=== PATIENT | male | born 1950 | race Caucasian/White ===

== ENCOUNTER 2018-08-05 12:40 | Emergency (ER) | payer MEDICARE, SELFPAY ==
--- NOTE | 2018-08-05 12:52 | ED_ITS ---
HPI - Neuro Symptoms/Deficit General Chief Complaint: Neuro Symptoms/Deficit Stated Complaint: thinks had a stroke. words slurred/legs weak Time Seen by Provider: 08/05/18 12:52 Source: patient Mode of arrival: ambulatory Limitations: no limitations History of Present Illness HPI Narrative: Patient is a 68-year-old male here for evaluation of bilateral lower extremity weakness that occurred last evening. He states that things have improved since that time. He also states that this morning he felt like he was having problems speaking and slurring his words. He states that he felt like he was doing this. He states he was talking to his sister at the time. His sister is not here however the patient states that his sister did not appreciate of the symptoms that he thought he was having. He reports that the slurring of his words has now completely resolved. Denies any headache. States that he occasionally sees black floaters in his eyes however no other vision changes. No chest pain. No shortness of breath. He states that he does have a history of hypertension. He is not on any hypertension medicines. He states that his blood pressure normally runs in the 190s systolic however occasionally is above 200. Related Data Previous Rx's Medication Instructions Recorded lisinopril 20 mg PO DAILY #60 tab 08/05/18 Allergies Allergy/AdvReac Type Severity Reaction Status Date / Time No Known Drug Allergies Allergy Verified 08/05/18 12:56 Review of Systems Constitutional Denies fatigue, Denies fever(s), Denies headache(s), Denies lethargy and Denies malaise Eyes Denies blurry vision and Denies diplopia Comments: Occasional black floaters ENT Ears, Nose, Mouth, and Throat: Denies vertigo, Denies dizziness, Denies headache (s) and Denies disequilibrium Cardiovascular Denies chest pain, Denies syncope and Denies dyspnea Respiratory Denies cough and Denies dyspnea Gastrointestinal Gastrointestinal: Denies abdominal pain, Denies nausea and Denies vomiting Musculoskeletal Denies myalgias, Denies arthralgias, Denies numbness and Denies tingling Comments: Weakness in bilateral lower extremities that is now resolved Integumentary/Breasts Denies lesions and Denies rash Neurologic Denies confusion, Denies vertigo, Denies dizziness, Denies syncope, Denies headache(s), Reports focal weakness (Bilateral lower extremities), Denies memory loss, Denies numbness, Denies convulsions, Denies tingling, Denies paresthesias and Denies disequilibrium Psychiatric Denies confusion and Denies memory loss Endocrine Denies fatigue Hematologic/Lymphatic Denies easy bleeding and Denies easy bruising [facility] Medical History Hypertension (Acute) Surgical History No pertinent past surgical history (Acute) Social History Smoking Status: Current every day smoker Exam Initial Vital Signs Initial Vital Signs: Vital Signs Temperature 98.4 F 08/05/18 12:53 Pulse Rate 72 08/05/18 12:53 Respiratory Rate 18 08/05/18 12:53 Blood Pressure 243/131 H 08/05/18 12:53 Pulse Oximetry 95 08/05/18 12:53 Const General: cooperative, healthy appearing, comfortable, well developed, well groomed and No acute distress Orientation: alert, awake and oriented x3 HENMT Head: normal to inspection and normocephalic Resp Effort & Inspection: normal respiratory effort Auscultation: clear to auscultation bilaterally Cardio Rate: regular rate Rhythm: regular rhythm Pulses: radial pulses present GI Inspection: non-distended Palpation: soft, No firm and No tender Skin General: no rashes or lesions noted Lesions: no lesions Rashes: no rashes Neuro General: alert, awake and oriented x3 Cranial Nerves: CN's II-XI intact bilaterally Cognition: normal cognition Speech: speech normal Motor: muscle tone normal throughout Sensory Exam: no sensory deficits noted Extrem General: normal to inspection and capillary refill normal Psych Appearance: grossly normal and well kempt Scores ABCD2 Age >= 60 years: yes Initial BP. Either SBP >= 140 or DBP >= 90.: yes Clinical features of the TIA: speech disturbance without weakness Duration of symptoms: < 10 minutes History of diabetes: no ABCD2 Score: 3 Course Orders Ordered: ED Orders 08/05/18 12:56 EKG-12 Lead Stat 08/05/18 13:08 CT head/brain wo con Stat 08/05/18 13:30 Complete Blood Count AUTO DIFF Stat Comprehensive Metabolic Panel Stat Partial Thromboplastin Time Stat Prothrombin Time INR Stat Troponin I Stat 08/05/18 15:11 Consult to Physical Therapy Evaluate & Treat Discontinued Medications Lisinopril (Zestril) 20 mg PO NOW ONE Stop: 08/05/18 14:18 Last Admin: 08/05/18 14:49 Dose: 20 mg Vital Signs - 8 hr 08/05/18 12:53 08/05/18 14:01 08/05/18 14:49 Temperature 98.4 F Pulse Rate 72 62 60 Respiratory Rate 18 18 Blood Pressure 243/131 H 192/90 H Blood Pressure [Left Arm] 171/100 H Pulse Oximetry 95 98 08/05/18 15:22 Temperature Pulse Rate 67 Respiratory Rate 16 Blood Pressure Blood Pressure [Left Arm] 184/110 H Pulse Oximetry 98 MDM - Neuro Symptoms/Deficit Lab Data Attestation: I reviewed the patient's lab results. Result diagrams: 08/05/18 13:30 08/05/18 13:30 Lab Results 08/05/18 08/05/18 08/05/18 Range/Units 13:30 13:30 13:30 WBC 6.7 (4.5-11.0) X10^3/uL RBC 5.21 (4.5-5.9) X10^6/uL Hgb 17.3 (13.5-17.5) g/dL Hct 49.8 (41-53) % MCV 95.5 (80-100) fL MCH 33.2 (26-34) PG MCHC 34.8 (30-36) % RDW 12.9 (11.6-14.8) % Plt Count 257 (150-400) X10^3/uL Neut % (Auto) 64.8 (50-75) % Lymph % (Auto) 22.4 L (25-40) % Mower % (Auto) 8.6 (3-14) % Eos % (Auto) 3.4 (2-4) % Baso % (Auto) 0.8 (0-2) % Neut # (Auto) 4400 (9537-6118) /uL PT 11.1 (10.1-12.7) SECONDS INR 1.0 (0.9-1.3) APTT 30 (26.4-36.2) SECONDS Sodium 139 (137-145) mmol/L Potassium 3.9 (3.4-5.1) mmol/L Chloride 102 (98-107) mmol/L Carbon Dioxide 27 (22-32) mmol/L BUN 23 H (9-20) mg/dL Creatinine 1.00 (0.66-1.25) mg/dL Estimated GFR > 60.0 (>60) mL/min BUN/Creatinine Ratio 23.0 H (6-22) Glucose 87 (80-110) mg/dL Calcium 9.2 (8.4-10.2) mg/dL Total Bilirubin 0.7 (0.2-1.3) mg/dL AST 30 (17-59) IU/L ALT 34 (21-72) IU/L Alkaline Phosphatase 86 (38-126) U/L Troponin I 0.014 (0.01-0.034) ng/mL Total Protein 7.3 (6.3-8.2) g/dL Albumin 4.3 (3.5-5.0) g/dL Globulin 3.0 (1.7-4.1) g/dL Albumin/Globulin Ratio 1.4 (1.0-2.8) Imaging Data CT scan - head: Radiologist's impression: [place] [address] CT Scan Report Signed Patient: Jaime Estrada#: [id number] : 1950cct:[id number] Age/Sex: 68 / MDate of Service: 08/05/18 Loc: ED Accession Number: [id number] Procedure: CT head/brain wo con Ordering Provider: Tucker Thomas D.O. PROCEDURE: CT HEAD/BRAIN WO CON INDICATIONS: Slurring words TECHNIQUE: Noncontrast 4.5 mm thick angled axial sections acquired from the foramen magnum to the vertex, with coronal and sagittal reformats. For radiation dose reduction, the following was used: automated exposure control, adjustment of mA and/or kV according to patient size. COMPARISON: None. FINDINGS: Image quality: Excellent. CSF spaces: Basal cisterns are patent. No extra-axial fluid collections. The ventricles are symmetric in size and shape. Brain: No intracranial bleeds or masses. There is cerebral volume loss for age , with resultant ventricular and sulcal prominence. There are periventricular and deep white matter chronic small vessel ischemic changes. There is intracranial internal carotid artery atherosclerosis. Skull and face: Calvarium and visualized facial bones appear intact, without suspicious lesions. Sinuses: Visualized sinuses and mastoids are clear. IMPRESSION: No acute disease, no trauma, and showing mild to moderate microvascular atherosclerotic change in the deep white matter of each hemisphere. Dictated by: Bony Castañeda M.D. on 08/05/2018 at 13:13 Approved by: Bony Castañeda M.D. on 08/05/2018 at 13:14 ECG Data Attestation: I personally reviewed and interpreted this ECG as follows: Prior ECG tracings: not available for review Interpretation: Sinus rhythm Ventricular rate is 69 LVH Normal QRS Normal QTC No ST T wave changes MDM Narrative Medical decision making narrative: Patient with a normal neurologic exam here in the emergency department. Did not appreciate any slurring of his words. He did state that his sister that he was talking to also did not appreciate any slurring of the words when he thought he was having the symptoms. He denies any other associated symptoms. His head CT was unremarkable. EKG was unremarkable. Denies any chest pain. He is significantly hypertensive. It does sound like his normal blood pressures are in the 190s and he does state that he has occasionally in the 240s. It did improve here in the emergency department without any intervention however I did give him a dose of lisinopril. I will send him home with a prescription for lisinopril. Patient was given return precautions. He expressed understanding and agreement with plan. Prior to discharge patient had some difficulty ambulating to the bathroom. He was evaluated by physical therapy who recommended a walker. He was given a walker here in the ER. He states that he may have 1 in storage. Will continue with the disposition of discharge. Discharge Plan Departure Patient Disposition: Home Clinical Impression: Hypertension, Bilateral leg weakness Instructions: Essential Hypertension Activity Restrictions/Additional Instructions: Highly recommend you contact the [facility] at [phone] for follow -up. I also recommend that you buy a blood pressure cuff and take your blood pressure at home like we discussed. Start taking the blood pressure medicine that you were given a prescription for today. Return to the emergency department for any new or worsening symptoms Prescriptions: New lisinopril 20 mg tablet 20 mg PO DAILY Qty: 60 RF: 0
[2018-08-05 12:53] VITALS: BP 243/131; PULSE 72; RESP 18; TEMP 36.9; O2SAT 95
--- NOTE | 2018-08-05 13:08 | DI.CT.S_ITS ---
PROCEDURE: CT HEAD/BRAIN WO CON INDICATIONS: Slurring words TECHNIQUE: Noncontrast 4.5 mm thick angled axial sections acquired from the foramen magnum to the vertex, with coronal and sagittal reformats. For radiation dose reduction, the following was used: automated exposure control, adjustment of mA and/or kV according to patient size. COMPARISON: None. FINDINGS: Image quality: Excellent. CSF spaces: Basal cisterns are patent. No extra-axial fluid collections. The ventricles are symmetric in size and shape. Brain: No intracranial bleeds or masses. There is cerebral volume loss for age, with resultant ventricular and sulcal prominence. There are periventricular and deep white matter chronic small vessel ischemic changes. There is intracranial internal carotid artery atherosclerosis. Skull and face: Calvarium and visualized facial bones appear intact, without suspicious lesions. Sinuses: Visualized sinuses and mastoids are clear. IMPRESSION: No acute disease, no trauma, and showing mild to moderate microvascular atherosclerotic change in the deep white matter of each hemisphere. Dictated by: Bony Castañeda M.D. on 08/05/2018 at 13:13 Approved by: Bony Castañeda M.D. on 08/05/2018 at 13:14
--- NOTE | 2018-08-05 13:38 | PC.NURSE ---
[address] place 30ml lubrication jelly with large into rectum. pt tolerated well. order by emmett Roth.
--- NOTE | 2018-08-05 13:39 | PC.NURSE ---
started by associate of science in nursing hubert, attempt 2. pt tolerated procedure well
[2018-08-05 13:45] LABS: Add Manual Diff / Slide Review NO; Basophils Percent Auto 0.8 % (0-2); Eosinophils Percent Auto 3.4 % (2-4); Hematocrit 49.8 % (41-53); Hemoglobin 17.3 g/dL (13.5-17.5); Lymphocytes Percent Auto 22.4 % (25-40); Mean Corpuscular HGB Conc 34.8 % (30-36); Mean Corpuscular Hemoglobin 33.2 PG (26-34); Mean Corpuscular Volume 95.5 fL (80-100); Monocytes Percent Auto 8.6 % (3-14); Neutrophils Absolute Auto 4400 /uL (3000-5900); Neutrophils Percent Auto 64.8 % (50-75); Platelet Count 257 X10^3/uL (150-400); Red Blood Cell Count 5.21 X10^6/uL (4.5-5.9); Red Cell Distribution Width 12.9 % (11.6-14.8); White Blood Cell Count 6.7 X10^3/uL (4.5-11.0)
[2018-08-05 13:56] LABS: Prothrombin Time 11.1 SECONDS (10.1-12.7)
[2018-08-05 13:58] LABS: PTT Partial Thromboplastin Tim 30 SECONDS (26.4-36.2)
[2018-08-05 14:00] LABS: Alanine Aminotransferase 34 IU/L (21-72); Albumin 4.3 g/dL (3.5-5.0); Albumin Globulin Ratio 1.4 (1.0-2.8); Alkaline Phosphatase 86 U/L (38-126); Aspartate Aminotransferase 30 IU/L (17-59); Bilirubin Total 0.7 mg/dL (0.2-1.3); Blood Urea Nitrogen 23 mg/dL (9-20); Calcium 9.2 mg/dL (8.4-10.2); Carbon Dioxide 27 mmol/L (22-32); Chloride 102 mmol/L (98-107); Estimated Glomerular Filt Rate > 60.0 mL/min (>60); Glucose 87 mg/dL (80-110); HEMOLYSIS 37 (0-50); Potassium 3.9 mmol/L (3.4-5.1); Sodium 139 mmol/L (137-145); Total Protein 7.3 g/dL (6.3-8.2)
[2018-08-05 14:01] VITALS: BP 171/100; PULSE 62; RESP 18; O2SAT 98
[2018-08-05 14:11] LABS: Troponin I 0.014 ng/mL (0.01-0.034)
[2018-08-05 14:49] VITALS: BP 192/90; PULSE 60
[2018-08-05] MEDS: LISINOPRIL 20 MG TABLET PO (14:49)
[2018-08-05 15:22] VITALS: BP 184/110; PULSE 67; RESP 16; O2SAT 98
--- NOTE | 2018-08-05 16:40 | PT.IIE ---
Surgical History (Last Reviewed 08/05/18 @ 15:04 by Tucker Thomas DO) No pertinent past surgical history (Acute) Medical History (Last Reviewed 08/05/18 @ 15:04 by Tucker Thomas DO) Hypertension (Acute) Physical Therapy Inpatient Evaluation/Re-Eval M1 PT/OT-IP Prior Functional Status Start: 08/05/18 17:11 Freq: Status: Active Protocol: Document 08/05/18 16:40 AB (Rec: 08/05/18 17:52 AB [id number]) Medical Review Prior Functional Status Medical History Reviewed Yes Communication able to make needs known Mobility and Gait pt stated that he is modified independent with all mobilities and ambulation without AD Social History Household Members other Living Arrangements House Number of Floors (Floors) Two Floors Number of Stairs To Enter/Railing? has 5 steps with L rail ascending to enter. Has 6steps with L rail ascending + 6 steps with R rail ascending to get t 2nd floor Home Environment Standard Height Toilet Walk in Shower Home Equipment Hand Held Shower Grab Bars In Shower Additional Social History Comment stated that he lives in a shared house with other roommates but will not be able to assist him at home stated that he has a FWW and SPC but are in storage M2 PT-IP Current Condition Start: 08/05/18 17:11 Freq: Status: Active Protocol: Document 08/05/18 16:40 AB (Rec: 08/05/18 17:52 AB [id number]) Physical Therapy Current Condition Current Condition Evaluation Date 08/05/18 Treatment Diagnosis HTN; difficulty in walking Onset Date 08/05/18 M3 PT-IP Subjective Start: 08/05/18 17:11 Freq: Status: Active Protocol: Document 08/05/18 16:40 AB (Rec: 08/05/18 17:52 AB [id number]) Subjective Physical Therapy Visit Type Type Initial Evaluation Visit Start Time 16:40 Visit Stop Time 17:12 Total Visit Minutes 32 Number of DRILL SHARPENER Visits 0 Physical Therapy Visit Comments Patient Comments I am bored; feeling better than when I came in Patient Goals to go home Therapy Pain Assessment Pain Present Pain Present Denied Pain M4 PT-IP Mobility and Gait Start: 08/05/18 17:11 Freq: Status: Active Protocol: Document 08/05/18 16:40 AB (Rec: 08/05/18 17:52 AB [id number]) PT-Bed Mobility Assessment Supine to Sit Supine to Sit Standby Assistance Sit to Supine Sit to Supine Standby Assistance Scooting Scooting to Edge of Bed Standby Assistance Scooting Up and Down in Bed Standby Assistance Bed Transfer Assessment General Evaluation Overall Bed Transfer Ability Standby Assistance Specific Evaluation Sit to Stand Bed Transfer Ability Standby Assistance Comments Bed Transfer Comments BP in supine with HOB elevated prior to mobilization: 181/ 105 BP supine with HOB elevated after PT session: 189/92 Nurse aware of BP reading. stated that the doctor want PT to assess pt despite high BP and that pt has usual high BP and has been given lisinopril already. Pt does not complain of other symptoms and actually stated that he feels better compared to this morning. Gait Assessment Gait Gait Assistance Required: Standby Assistance Distance (Feet) 250 Able to Maintain Weight Bearing Status Yes During Gait Assistive Devices Assistive Device Gait Belt Front Wheeled Walker Gait Deviations General Gait Pattern Antalgic Decreased Stride Length Decreased Feet Clearance Factors Limiting Gait Function Factors Limiting Gait Function Decreased Strength Poor Balance Poor Safety Awareness Comments Gait Comments pt stated that he has chronic L knee pain affecting ambulation. pt was able to ambulate using FWW SBA ~ 250 ft. Ambulated without AD SBA to CGA with increase unsteadiness and antalgic gait . Stair Climbing Assessment Evaluation Level of Assist On Stairs Standby Assistance Devices Stair Climbing Assistive Devices Left Railing Technique/Endurance Stair Climbing Direction Ascend and Descend Stair Climbing Technique Step Over Step Number of Steps Climbed 12 Query Text: Stair Climbing Set # Repetitions (reps) 1 Comments Stair Climbing Comments pt completed up/down steps using L rail ascending requiring SBA PT-Balance Assessment Sitting Balance and Reactions Static Sitting Balance Ability Good Dynamic Sitting Balance Ability Good Standing Balance and Reactions Static Standing Balance Ability Fair Dynamic Standing Balance Ability Fair Device Used without AD M5 PT-IP Objective Assessments Start: 08/05/18 17:11 Freq: Status: Active Protocol: Document 08/05/18 16:40 AB (Rec: 08/05/18 17:52 AB [id number]) Orientation Orientation/Cognition Level of Alertness Alert Orientation Name Place Situation Safety Awareness Decreased Safety Awareness M6 PT-IP Treatment Start: 08/05/18 17:11 Freq: Status: Active Protocol: Document 08/05/18 16:40 AB (Rec: 08/05/18 17:52 AB [id number]) Physical Therapy Treatment Education Education Provided Safety M7 PT-IP Assessment and Plan Start: 08/05/18 17:11 Freq: Status: Active Protocol: Document 08/05/18 16:40 AB (Rec: 08/05/18 17:52 AB [id number]) PT Summary Assessment and Plan Potential Rehabilitation Potential Fair Status of Condition at Evaluation Evolving Summary Impairments Balance Gait Assessment Summary Received ER request for pt eval for determining safety with d/c home. pt requires SBA with mobility but with increase assistance to CGA without AD during ambulation. informed pt and doctor that pt will need a FWW for safe d/ c home. Both understood and agreed. Goals Bed Mobility Goal Independent Transfer Goal Independent Front Wheeled Walker Gait Goal Independent Front Wheel Walker Gait Distance 300 Other Goals up/down 12 steps 1 rail Mod I Frequency of Treatment Frequency Of Treatment Once a Day Treatment Plan Physical Therapy Treatment Plan Bed Mobility Training Transfer Training Gait Training Therapeutic Exercise Balance Retraining Discharge Planning Neuromuscular Re-ed Coordination Retraining Recommendations To Nursing Amount of Assist Needed Standby Assistance Discharge Recommendations PT Discharge Recommendations Home with Assistance Equipment Needed for Home Before FWW Discharge
--- NOTE | 2018-08-05 17:14 | PC.NURSE ---
PT evaluated patient including evauation using stairs.
== END 2018-08-05 17:28 | disposition home or self-care (01) ==
PROVIDERS: Emergency Provider Emergency Medicine
DX: I10 Essential (primary) hypertension (principal); R29.898 Other symptoms and signs involving the musculoskeletal system
CPT/HCPCS: 36591; 70450; 80053; 84484; 85025; 85610; 85730; 93005; 97162; 99283; 99285; 99291

== ENCOUNTER 2020-05-12 10:02 | Inpatient (IN) | payer OTHER, SELFPAY ==
[2020-05-12] VITALS (25 sets, daily range): BP systolic 165–201; BP diastolic 80–92; PULSE 57–75; RESP 14–37; TEMP 36.7–38.4; O2SAT 95–100; BMI 33.7
--- NOTE | 2020-05-12 | DI.ECHO.S_ITS ---
[facility] +---------+ [facility] +---------+ : : [address] : [address] : : : : [id number] : : : : Phone: [phone] Echocardiogram Report + + :Name: HUMBERTO URBAN Study Date: 05/13/2020 Height: 73 in : :[facility] Weight: 255 lb : : Gender: Male BSA: 2.4 m2 : :: 1950 Age: 69 yrs BP: 165/80 mmHg: :Reason For Study: NEW CHF EXAC : :Ordering Physician: [facility] : :Hospitalist Performed By: Sakina Villalba : :Referring: GURPREET LOERA : + + Interpretation Summary The left ventricle is normal in size. There is moderate asymmetric left ventricular hypertrophy. There is no echo evidence for significant left ventricular outflow tract obstruction. No systolic anterior motion of the mitral valve. The ejection fraction is estimated to be 55-60%. The right ventricle is at the upper limits of normal in size. The right ventricular systolic function is normal. There is mild mitral regurgitation. The IVC is dilated (diameter is greater than 2.1 cm) yet it collapses greater than 50% with a sniff. This suggests a right atrial pressure of 8 mm Hg. Mild atherosclerotic plaque(s) in the aortic arch. Procedure: A two-dimensional transthoracic echocardiogram with color flow and Doppler was performed. The study quality was technically adequate. There is no prior echocardiogram noted for this patient. The heart rate ranged between 55-80 bpm during the study. The patient was in normal sinus rhythm during the exam. The patient had a bundle branch block rhythm during the exam. Left Ventricle: The left ventricle is normal in size. There is moderate asymmetric left ventricular hypertrophy. There is no echo evidence for significant left ventricular outflow tract obstruction. There is no thrombus. The ejection fraction is estimated to be 55-60%. Septal motion is consistent with conduction abnormality. Diastolic parameters suggest a relaxation abnormality of the left ventricle, consistent with probable normal filling pressures. Right Ventricle: The right ventricle is at the upper limits of normal in size. The right ventricular systolic function is normal. Atria: The left atrium is severely dilated. Right atrial size is normal. There is no Doppler evidence for an interatrial shunt. Mitral Valve: There is mild mitral annular calcification. No systolic anterior motion of the mitral valve. There is mild mitral regurgitation. Aortic Valve: The aortic valve is trileaflet. The aortic valve is mildly calcified. The aortic valve opens well. There is no aortic valve stenosis. No aortic regurgitation is present. Tricuspid Valve: The tricuspid valve is normal. Pulmonary artery pressures cannot be estimated because of the lack of a measurable TR jet velocity but the IVC suggests a CVP of around 8 mmHg. There is trace tricuspid regurgitation. Pulmonic Valve: The pulmonic valve is not well visualized. There is no pulmonic valvular regurgitation. Great Vessels: The aortic root is borderline dilated. The ascending aorta is at the upper limits of normal in size. Mild atherosclerotic plaque(s) in the aortic arch. The IVC is dilated (diameter is greater than 2.1 cm) yet it collapses greater than 50% with a sniff. This suggests a right atrial pressure of 8 mm Hg. Pericardium/ Pleura There is no pericardial effusion. There is no pleural effusion. MMode/2D Measurements & Calculations LVIDd: 5.6 cm LVOT diam: 2.3 cm LVIDs: 3.8 cm Ao root diam: 4.3 cm FS: 32.8 % asc Aorta Diam: 3.9 cm EPSS: 0.94 cm Ao Arch Diam (Prox Trans): 2.8 cm IVSd: 1.7 cm LVPWd: 1.3 cm LV palma. diameter/BSA (cm/m^2): 2.4 LV sys. diameter/BSA (cm/m^2): 1.6 LA A2 area: 32.2 cm2 RA long axis: 6.7 cm LA A4 area: 27.7 cm2 RA area: 22.4 cm2 LA length (vol): 6.3 cm RA vol: 63.9 ml LA vol: 120.7 ml RA : 26.8 ml/m2 LA vol index: 50.6 ml/m2 IVC diam: 2.6 cm RVD1 (basal): 4.1 cm TAPSE: 2.2 cm Doppler Measurements & Calculations Ao V2 max: 127.9 cm/sec LVOT Max Esa: 106.6 cm/sec Ao V2 mean: 86.2 cm/sec LV V1 max P.5 mmHg Ao max P.5 mmHg LV V1 VTI: 18.2 cm Ao mean P.5 mmHg AUREA(I,D): 3.0 cm2 Ao V2 VTI: 26.3 cm AUREA(V,D): 3.6 cm2 sev ratio: 0.69 AUREA indexed to BSA (cm^2/m^2): 1.3 MV E max esa: 54.6 cm/sec PA V2 max: 82.2 cm/sec MV A max esa: 48.4 cm/sec PA V2 mean: 55.4 cm/sec MV E/A: 1.1 PA mean P.4 mmHg Med Peak E' Esa: 5.9 cm/sec PA pr(Accel): 32.8 mmHg E/E' med: 9.3 Lat Peak E' Esa: 7.9 cm/sec E/E' lat: 6.9 E/e' average: 8.1 MV dec time: 0.27 sec SV(LVOT): 78.5 ml Reading Physician:01:59 PM
--- NOTE | 2020-05-12 10:13 | DI.RAD.S_ITS ---
PROCEDURE: XR CHEST 1V INDICATIONS: chest pain TECHNIQUE: One view of the chest was acquired. COMPARISON: None. FINDINGS: Surgical changes and devices: None. Lungs and pleura: Mild pulmonary vascular congestion is seen. Bilateral perihilar infiltrates cannot be excluded. No pleural effusions or pneumothorax. Mediastinum: Mediastinal contours appear normal. Heart size is enlarged. Bones and chest wall: No suspicious bony lesions. Overlying soft tissues appear unremarkable. IMPRESSION: Cardiomegaly and pulmonary vascular congestion. Cannot rule out underlying bilateral perihilar patchy infiltrates. No pleural effusion or pneumothorax. Dictated by: Patrick Dickinson M.D. on 05/12/2020 at 10:23 Approved by: Patrick Dickinson M.D. on 05/12/2020 at 10:24
--- NOTE | 2020-05-12 10:28 | ED.WEAKNESS ---
HPI - Weakness General Chief complaint: Weakness Stated complaint: GLF, on floor since Midnight. Increased weakness Time Seen by Provider: 05/12/20 10:13 Source: patient and EMS Mode of arrival: EMS Limitations: no limitations History of Present Illness HPI Narrative: The patient was up late last night. He rolled out of his bed about midnight, landing on his buttocks. He denies head, neck or back injury. He has no chest pain or dyspnea. He has no GI complaints. He denies pain at this time, but he could not lift himself from the floor. He has no confusion. He denies recent illness. No URI symptoms, cough or fever. His appetite and oral intake have been normal. He has no generalized weakness, he is normally ambulatory without assistance. He seems that weakness in his legs at this time. He smokes regularly. He is on no medications. He describes Pepsi as his only medication. Related Data Home Medications Medication Instructions Recorded Confirmed No Known Home Medications 05/12/20 05/12/20 Allergies Allergy/AdvReac Type Severity Reaction Status Date / Time No Known Drug Allergies Allergy Verified 05/12/20 10:17 Review of Systems Constitutional Constitutional: Reports system reviewed and no additional complaints, except as documented, Denies body ache(s), Denies chills, Denies fatigue, Denies fever(s), Denies frequent falls and Denies headache(s) Eyes Eyes: Denies change in vision, Denies eye discharge, Denies irritation and Denies loss of vision ENT Ears, Nose, Mouth, and Throat: Denies vertigo, Denies dizziness, Denies headache(s) and Denies epistaxis Cardiovascular Cardiovascular: Denies chest pain, Denies irregular heart rhythm, Denies lightheadedness, Denies palpitations and Denies dyspnea Respiratory Respiratory: Denies cough, Denies dyspnea and Denies wheezing Gastrointestinal Gastrointestinal: Denies abdominal pain, Denies change in bowel habits, Denies diarrhea, Denies nausea and Denies vomiting Genitourinary Genitourinary: Denies dysuria and Denies genital lesions Genitourinary: Denies dysuria and Denies genital lesions Musculoskeletal Musculoskeletal: Denies arthralgias, Denies back pain, Denies myalgias and Denies numbness Comments: Weakness Integumentary/Breasts Skin/Breast: Denies pruritus, Denies erythema, Denies rash and Denies wounds Neurologic Neurologic: Denies confusion, Denies vertigo, Denies dizziness, Denies frequent falls, Denies headache(s), Denies loss of vision and Denies numbness Psychiatric Psychiatric: Denies confusion and Denies depression Endocrine Endocrine: Denies fatigue and Denies palpitations Allergic/Immunologic Allergic/Immunologic: Denies wheezing Patient History Medical History Hypertension (Acute) Surgical History No pertinent past surgical history (Acute) Social History household members: other Smoking Status: Current every day smoker Smoking Status: Current every day smoker alcohol intake frequency: a few times a week Substance Use Type: does not use Exam Initial Vital Signs Initial Vital Signs: Vital Signs Temperature 98.1 F 05/12/20 10:00 Pulse Rate 68 05/12/20 10:00 Respiratory Rate 14 05/12/20 10:00 Blood Pressure 175/83 H 05/12/20 10:00 Pulse Oximetry 98 05/12/20 10:00 Const General: cooperative and well developed Nutritional Appearance: well nourished [facility] Head: normocephalic and atraumatic Ears: external ears normal and TM's normal bilaterally Nose: external nose normal Face and sinus: sinuses nontender and face symmetric Mouth: oral mucosae normal and moist mucous membranes Throat: posterior oropharynx normal and tonsils normal Eyes General: appearance normal, both eyes and all related structures Eyelids: eyelids normal Conjunctivae: conjunctivae normal Sclera: sclerae normal Pupils: PERRL EOM: EOM intact bilaterally Neck Neck: No lymphadenopathy and No JVD Chest Chest: normal inspection of the chest Resp Effort & Inspection: normal respiratory effort, able to speak in complete sentences, no respiratory distress and no use of accessory muscles Auscultation: clear to auscultation bilaterally, no rales, no rhonchi and no wheezes Cardio Rate: regular rate Rhythm: regular rhythm Heart Sounds: no click, no gallops, no murmurs and no rubs Pulses: normal peripheral pulses GI Inspection: non-distended Palpation: soft, no hepatosplenomegaly, No guarding, No pulsatile mass and No tender Auscultation: normal bowel sounds Back/Spine/Pelvis Back: No CVA tenderness Cervical Spine: cervical ROM normal Thoracic/Lumbar Spine: thoracic and lumbar spine normal to inspection Skin Other: Erythema with warmth and slight tenderness to the left tibia. No induration, no fluctuance. No site superiorly discharge. Neuro General: patient alert, patient oriented x3, gait normal and no focal motor deficits Speech: speech normal Extrem Other: 4+ bilateral lower extremity edema. No calf tenderness. Dorsalis pedis pulses are normal bilaterally. Course Course Course Narrative: The patient had left leg cellulitis on exam, he has severe lower extremity edema, associated with a BNP of 4080. The patient has no chest pain, no significant EKG changes. He has a troponin 0.42. The patient was started on vancomycin for the cellulitis. The elevated troponin and elevated BNP number discussed with Dr. Cota. He will require additional evaluation treatment CHF and elevated troponin. Orders Ordered: ED Orders 05/12/20 10:13 XR chest 1V Stat EKG-12 Lead Stat 05/12/20 10:17 Urinalysis and Microscopic Stat 05/12/20 12:15 Complete Blood Count AUTO DIFF Stat Comprehensive Metabolic Panel Stat Lipase Stat Magnesium Stat Partial Thromboplastin Time Stat Prothrombin Time INR Stat Troponin & CK Cardiac Panel Stat 05/12/20 14:58 Blood Culture Stat Lactate (Lactic Acid) Stat NT-proBNP (BNP-Adult 18+) Stat Troponin & CK Cardiac Panel Stat Vancomycin HCl/Dextrose (Vancomycin) 1,500 mg in 300 mls @ 200 mls/hr IV Q24H ZOILA Last Admin: 05/12/20 13:32 Dose: 200 mls/hr Documented by: PAZ Discontinued Medications Sodium Chloride (Normal Saline 0.9%) 1,000 mls @ 1,000 mls/hr IV BOLUS ONE Stop: 05/12/20 14:23 Last Infusion: 05/12/20 14:42 Dose: 0 mls/hr Documented by: Admin: 05/12/20 13:33 Dose: 1,000 mls/hr Documented by: PAZ Vital Signs Vital signs: Vital Signs - 8 hr 05/12/20 10:27 05/12/20 10:30 05/12/20 11:00 Pulse Rate 75 73 73 Respiratory Rate 37 H 24 Blood Pressure 199/86 H Pulse Oximetry 99 99 97 08/14/20 11:30 05/12/20 12:00 05/12/20 12:29 Pulse Rate 68 69 68 Respiratory Rate 22 Blood Pressure 186/86 H Pulse Oximetry 100 98 97 05/12/20 12:31 05/12/20 13:00 05/12/20 13:01 Pulse Rate 66 69 Respiratory Rate Blood Pressure 192/86 H 184/88 H Pulse Oximetry 97 97 05/12/20 13:30 05/12/20 14:00 05/12/20 14:01 Pulse Rate 61 66 67 Respiratory Rate Blood Pressure 176/84 H 194/91 H Pulse Oximetry 96 95 98 05/12/20 14:30 Pulse Rate 57 L Respiratory Rate 24 Blood Pressure 185/85 H Pulse Oximetry 97 MDM - Weakness Lab Data Result diagrams: 05/12/20 12:15 05/12/20 12:15 Labs: Lab Results 05/12/20 05/12/20 05/12/20 Range/Units 12:15 12:15 12:15 WBC 18.9 H (4.5-11.0) X10^3/uL RBC 4.87 (4.5-5.9) X10^6/uL Hgb 16.1 (13.5-17.5) g/dL Hct 47.8 (41-53) % MCV 98.1 (80-100) fL MCH 33.0 (26-34) PG MCHC 33.6 (30-36) % RDW 13.2 (11.6-14.8) % Plt Count 179 (150-400) X10^3/uL Neut % (Auto) 95.1 H (50-75) % Lymph % (Auto) 1.7 L (25-40) % [place] % (Auto) 3.0 (3-14) % Eos % (Auto) 0.0 L (2-4) % Baso % (Auto) 0.2 (0-2) % Neut # (Auto) 72040 H (8322-5258) /uL Lymph # (Auto) 300 L (1193-7876) /uL [place] # (Auto) 600 (0-900) /uL Eos # (Auto) 0 (0-450) /uL Baso # (Auto) 0 (0-100) /uL PT 13.2 H (10.1-12.7) SECONDS INR 1.1 (0.9-1.3) APTT 27 D (26.4-36.2) SECONDS Sodium 137 (137-145) mmol/L Potassium 3.7 (3.4-5.1) mmol/L Chloride 102 (98-107) mmol/L Carbon Dioxide 31 (22-32) mmol/L BUN 21 H (9-20) mg/dL Creatinine 0.86 (0.66-1.25) mg/dL Estimated GFR > 60.0 (>60) mL/min BUN/Creatinine Ratio 24.4 H (6-22) Glucose 106 (80-110) mg/dL Calcium 9.5 (8.4-10.2) mg/dL Magnesium 2.1 (1.6-2.3) mg/dL Total Bilirubin 1.1 (0.2-1.3) mg/dL AST 47 (17-59) IU/L ALT 17 (<50) IU/L Alkaline Phosphatase 91 (38-126) U/L Total Creatine Kinase 1105 H (55-170) U/L CK-MB (CK-2) 5.90 H (<2.37) ng/mL CK-MB (CK-2) Rel Index 0.5 L (1.5-5.0) % Troponin I 0.042 H (0.01-0.034) ng/mL Total Protein 6.9 (6.3-8.2) g/dL Albumin 4.0 (3.5-5.0) g/dL Globulin 2.9 (1.7-4.1) g/dL Albumin/Globulin Ratio 1.4 (1.0-2.8) Lipase 19 L (23-300) U/L Imaging Data Chest x-ray: Radiologist Impression: 115 Tian Young MD Find Patient Imaging - Rayo Estrada 69 M 1950 ACTIVITY DATE EXAM STATUS AUTHOR 05/12/20 10:[address] [address] XRay Report Signed Patient: Jaime Estrada#: [id number] : 1950cct:[id number] Age/Sex: 69 / MDate of Service: 05/12/20 Loc: ED Accession Number: [id number] Procedure: XR chest 1V Ordering Provider: Tian Young MD PROCEDURE: XR CHEST 1V INDICATIONS: chest pain TECHNIQUE: One view of the chest was acquired. COMPARISON: None. FINDINGS: Surgical changes and devices: None. Lungs and pleura: Mild pulmonary vascular congestion is seen. Bilateral perihilar infiltrates cannot be excluded. No pleural effusions or pneumothorax. Mediastinum: Mediastinal contours appear normal. Heart size is enlarged. Bones and chest wall: No suspicious bony lesions. Overlying soft tissues appear unremarkable. IMPRESSION: Cardiomegaly and pulmonary vascular congestion. Cannot rule out underlying bilateral perihilar patchy infiltrates. No pleural effusion or pneumothorax. Dictated by: Patrick Dickinson M.D. on 05/12/2020 at 10:23 Approved by: Patrick Dickinson M.D. on 05/12/2020 at 10:24 ECG Data Attestation: I personally reviewed and interpreted this ECG as follows: (Normal sinus rhythm rate 73 beats per minute. LAD. LVH. No sick ST T wave changes.) Critical Care Time Critical Care Time Critical Care Time: Yes Total Critical Care Time: 45 Attestation: Critical care time included initial assessment, evaluation of Radiology, EKG and lab data, and the clinical decisions. She the situation discussed with the patient. Time was spent discussing the case with the admitting hospitalist. Discharge Plan Departure Patient Disposition: Admitted As Inpatient Clinical Impression: Congestive heart failure, Cellulitis of left leg, Elevated troponin Admit Date/Time: 05/12/20 14:50 Admit Provider: Bowen Cota
[2020-05-12 12:24] LABS: Add Manual Diff / Slide Review NO; Basophils Absolute Auto 0 /uL (0-100); Basophils Percent Auto 0.2 % (0-2); Eosinophils Absolute Auto 0 /uL (0-450); Hematocrit 47.8 % (41-53); Hemoglobin 16.1 g/dL (13.5-17.5); Lymphocytes Absolute Auto 300 /uL (1100-4500); Lymphocytes Percent Auto 1.7 % (25-40); Mean Corpuscular HGB Conc 33.6 % (30-36); Mean Corpuscular Volume 98.1 fL (80-100); Monocytes Absolute Auto 600 /uL (0-900); Neutrophils Absolute Auto 18000 /uL (1500-7000); Neutrophils Percent Auto 95.1 % (50-75); Platelet Count 179 X10^3/uL (150-400); Red Blood Cell Count 4.87 X10^6/uL (4.5-5.9); Red Cell Distribution Width 13.2 % (11.6-14.8); White Blood Cell Count 18.9 X10^3/uL (4.5-11.0)
[2020-05-12 12:30] LABS: INR 1.1 (0.9-1.3); Prothrombin Time 13.2 SECONDS (10.1-12.7)
[2020-05-12 12:33] LABS: PTT Partial Thromboplastin Tim 27 SECONDS (26.4-36.2)
[2020-05-12 12:34] LABS: Alanine Aminotransferase 17 IU/L (<50); Albumin Globulin Ratio 1.4 (1.0-2.8); Alkaline Phosphatase 91 U/L (38-126); Aspartate Aminotransferase 47 IU/L (17-59); BUN Creatinine Ratio 24.4 (6-22); Bilirubin Total 1.1 mg/dL (0.2-1.3); Blood Urea Nitrogen 21 mg/dL (9-20); Calcium 9.5 mg/dL (8.4-10.2); Carbon Dioxide 31 mmol/L (22-32); Chloride 102 mmol/L (98-107); Creatine Kinase 1105 U/L (55-170); Estimated Glomerular Filt Rate > 60.0 mL/min (>60); Globulin 2.9 g/dL (1.7-4.1); Glucose 106 mg/dL (80-110); HEMOLYSIS 24 (0-50); Lipase 19 U/L (23-300); Magnesium 2.1 mg/dL (1.6-2.3); Potassium 3.7 mmol/L (3.4-5.1); Sodium 137 mmol/L (137-145); Total Protein 6.9 g/dL (6.3-8.2)
[2020-05-12 12:46] LABS: Troponin I 0.042 ng/mL (0.01-0.034)
[2020-05-12 12:50] LABS: CKMB % Relative Index 0.5 % (1.5-5.0)
[2020-05-12] MEDS: VANCOMYCIN 1,500 MG/300 ML FROZ.PIGGY 200 MG IV (13:32)
[2020-05-12] MEDS: SODIUM CHLORIDE 0.9% 1,000 ML 1000 ML IV (13:33)
[2020-05-12 15:26] LABS: Creatine Kinase 1100 U/L (55-170); Lactate (Lactic Acid) 1.5 mmol/L (0.7-2.1)
[2020-05-12 15:36] LABS: NT-proBNP (BNP-Adult 18+) 4850 pg/mL (<125)
[2020-05-12 15:41] LABS: CKMB % Relative Index 0.4 % (1.5-5.0); Creatine Kinase MB 4.32 ng/mL (<2.37)
[2020-05-12 18:10] LABS: COVID19 -Nasal RAPID Negative (Negative)
[2020-05-12] MEDS: ACETAMINOPHEN 325 MG TABLET 650 MG PO (20:28)
[2020-05-12] MEDS: VANCOMYCIN 1,000 MG/200 ML PIGGYBACK 200 MG IV (20:34)
[2020-05-12 20:46] LABS: Ethanol (ETOH) < 10 mg/dL
[2020-05-12] MEDS: FUROSEMIDE 40 MG/4 ML VIAL IV (21:53)
[2020-05-12] MEDS: lisinopriL 10 MG TABLET PO (21:53)
[2020-05-12 22:16] LABS: Appearance Urine UA CLEAR; Bilirubin Urine UA NEGATIVE (NEGATIVE); Color Urine UA YELLOW; Glucose Urine UA NEGATIVE (Negative); Ketones Urine UA 1+ (NEGATIVE); Leukocyte Esterase Urine UA NEGATIVE (NEGATIVE); Nitrite Urine UA NEGATIVE (Negative); Occult Blood Urine UA 3+ (Negative); Protein Urine UA 1+ (Negative); Specific Gravity Urine UA 1.025 (1.000-1.035); Urobilinogen Urine UA 0.2 E.U./dL (0.2)
[2020-05-12 22:25] LABS: UR Morphine/Opiate cutoff 300 Negative (Negative); Ur Creatinine 20 (Normal); Ur Specific Gravity 1.025 (Normal); Urine Amphetamines Negative (Negative); Urine Barbiturates Negative (Negative); Urine Benzodiazepines Negative (Negative); Urine Cocaine Negative (Negative); Urine MDMA Negative (Negative); Urine Methadone Negative (Negative); Urine Methamphetamines Negative (Negative); Urine Oxycodone Negative (Negative); Urine Phencyclidine Negative (Negative); Urine Tetrahydrocannabinol Negative (Negative); Urine Tricyclic Antidepressant Negative (Negative); Urine pH 5 (Normal)
[2020-05-12 22:29] LABS: RBC Urine 1-5/HPF (0-5/HPF); WBC Urine 0-1/HPF (0-5/HPF)
[2020-05-12 22:30] LABS: Amorphous Sediment Urine 1+; Bacteria Urine Few (2-10); Culture Indicated Urine Cult Not Indicated; Granular Casts Urine 1-5/LPF; Hyaline Casts Urine 1-5/LPF; Mucus Urine 1+ (Negative); Squamous Epithelial Cell Urine 0-1 /HPF (0-5/HPF)
[2020-05-13] VITALS (7 sets, daily range): BP systolic 129–145; BP diastolic 63–83; PULSE 56–98; RESP 15–20; TEMP 36.7–37.7; O2SAT 95–98
--- NOTE | 2020-05-13 00:14 | PM.HP.1 ---
History of Present Illness History of Present Illness Date Patient Seen: 05/12/20 Time Patient Seen: 20:30 Chief complaint: GLF, on floor since Midnight. Increased weakness Narrative: Unable to obtain much of a history from the patient as he is very lethargic and keeps falling asleep mid sentence. Report provided by the ED indicated that he fell out of bed sometime last night. He stated the floor and when he woke up this morning he realized he had fallen and called the ?aid car?. When asked if he has a physician or a primary care provider he says that he does but he is unable to tell me the name or where here she is located. From what I understand from nursing he lives in the hotel here [place] town the patient was able to tell me that he was from [facility] and previously worked at a [employer]. He states that he knows his parents quite well and knows a lot about their medical history but is unable to give me any information as he is then fallen asleep. Chest xray done in the ED indicated Cardiomegaly and pulmonary vascular congestion. Cannot rule out underlying bilateral perihilar patchy infiltrates. No pleural effusion or pneumothorax.Patient was administered a 1 time dose of vancomycin in the ED. Patient is febrile at T-max 101.8, currently 100.8, blood pressure 165/80, heart rate 60, respiratory rate 20, oxygen saturation of 100% on room air, he weighs 111.8 kg with a BMI of 33.7. He has an elevated WBC at 18.9, RBC 4.87, hemoglobin 16.1, hematocrit 47.8, platelet count 179, sodium 137, potassium 3.7, chloride 102, CO2 31, BUN 21, creatinine 0.86, GFR is greater than 60, lactate 1.5, calcium 9.5, magnesium 2.1, liver enzymes are within normal limits, total CK 1100, CK-MB is 4.32, troponin was elevated at 0.040 and coming down, proBNP was 4850. Patient History Medical History (Updated 05/13/20 @ 00:37 by ARAMIS Contreras) Cellulitis of left leg (Acute) Congestive heart failure (Acute) Elevated troponin (Acute) Hypertension (Acute) Surgical History No pertinent past surgical history (Acute) Family & Social History Social History: household members other Prior Living Arrangements Homeless Safety & Behavioral: Feels Safe in Current Yes Environment Been Physically Hurt or No Threatened By a Person Suicidal Ideation Description None Suicide Plan Description No Plan Tobacco & Substance use: Tobacco type cigarettes Smoking Status Current every day smoker alcohol intake current alcohol intake frequency a few times a week Substance Use Type does not use Meds Home Medications and Allergies Home Medications Medication Instructions Recorded Confirmed Type No Known Home Medications 05/12/20 05/12/20 History Allergies Allergy/AdvReac Type Severity Reaction Status Date / Time No Known Drug Allergies Allergy Verified 05/12/20 10:17 Review of Systems Review of Systems ROS: Yes unobtainable due to mental status Exam Vital Signs (past 8 hours): - 05/12/20 16:30 05/12/20 17:00 05/12/20 18:18 Temperature 101.1 F H 100.8 F H Pulse Rate 58 L 63 Respiratory Rate 26 H 19 Blood Pressure 172/82 H 167/80 H Pulse Oximetry 98 96 05/12/20 20:46 05/12/20 21:53 05/12/20 22:09 Temperature 101.1 F H 100.8 F H Pulse Rate 60 60 Respiratory Rate 20 Blood Pressure 165/80 H 165/80 H Pulse Oximetry 100 Oxygen Delivery Method Room Air Oxygen Flow Rate 0 Narrative Exam Narrative: Gen: Alert, oriented, disheveled and ill appearing 69 y.o. male, very lethargic HEENT: normocephalic, atraumatic, pupils are pinpoint and fixed, sclera non-icteric, oral mucosa dry with what appear to be candidal deposits on his lips, appears to have lacerated his tongue distantly Neck: supple, full ROM, no JVD, trachea is midline Resp: Lungs CTA, non-labored breathing CV: RRR, no murmur or rubs Abd: soft, non-tender, normoactive BTs Skin: Multiple pink round lesions, dry and intact Neuro: Alert and oriented X 2 unable to maintain a conversation without falling asleep Extremities: LE w/2+ non pitting edema, moves all 4 extremities, currently not ambulatory Psyche: baseline unknown Objective Labs Result Diagrams: 05/12/20 12:15 05/12/20 12:15 Labs: Laboratory Results - last 24 hr 05/12/20 05/12/20 05/12/20 12:15 12:15 12:15 WBC 18.9 H RBC 4.87 Hgb 16.1 Hct 47.8 MCV 98.1 MCH 33.0 MCHC 33.6 RDW 13.2 Plt Count 179 Neut % (Auto) 95.1 H Lymph % (Auto) 1.7 L [place] % (Auto) 3.0 Eos % (Auto) 0.0 L Baso % (Auto) 0.2 Neut # (Auto) 47003 H Lymph # (Auto) 300 L [place] # (Auto) 600 Eos # (Auto) 0 Baso # (Auto) 0 PT 13.2 H INR 1.1 APTT 27 D Sodium 137 Potassium 3.7 Chloride 102 Carbon Dioxide 31 BUN 21 H Creatinine 0.86 Estimated GFR > 60.0 BUN/Creatinine Ratio 24.4 H Glucose 106 Lactate Calcium 9.5 Magnesium 2.1 Total Bilirubin 1.1 AST 47 ALT 17 Alkaline Phosphatase 91 Total Creatine Kinase 1105 H CK-MB (CK-2) 5.90 H CK-MB (CK-2) Rel Index 0.5 L Troponin I 0.042 H NT-Pro-B Natriuret Pep Total Protein 6.9 Albumin 4.0 Globulin 2.9 Albumin/Globulin Ratio 1.4 Lipase 19 L Urine Color Urine Appearance Urine pH Ur Specific [place] Urine Protein Urine Glucose (UA) Urine Ketones Urine Occult Blood Urine Nitrate Urine Bilirubin Urine Urobilinogen Ur Leukocyte Esterase Urine RBC Urine WBC Ur Squamous Epith Cells Amorphous Sediment Urine Bacteria Hyaline Casts Granular Casts Urine Mucus Ur Culture Indicated? U Opiates 300ng/mL cut Ur Oxycodone Screen Urine Methadone Screen Ur Barbiturates Screen U Tricyclic Antidepress Ur Phencyclidine Scrn Ur Amphetamines Screen U Methamphetamines Scrn Ur MDMA Scrn (Ecstasy) U Benzodiazepines Scrn Urine Cocaine Screen U Marijuana (THC) Screen Ethyl Alcohol COVID-19 PCR 05/12/20 05/12/20 05/12/20 14:58 14:58 14:58 WBC RBC Hgb Hct MCV MCH MCHC RDW Plt Count Neut % (Auto) Lymph % (Auto) [place] % (Auto) Eos % (Auto) Baso % (Auto) Neut # (Auto) Lymph # (Auto) [place] # (Auto) Eos # (Auto) Baso # (Auto) PT INR APTT Sodium Potassium Chloride Carbon Dioxide BUN Creatinine Estimated GFR BUN/Creatinine Ratio Glucose Lactate 1.5 Calcium Magnesium Total Bilirubin AST ALT Alkaline Phosphatase Total Creatine Kinase 1100 H CK-MB (CK-2) 4.32 H CK-MB (CK-2) Rel Index 0.4 L Troponin I 0.040 H NT-Pro-B Natriuret Pep 4850 H Total Protein Albumin Globulin Albumin/Globulin Ratio Lipase Urine Color Urine Appearance Urine pH Ur Specific [place] Urine Protein Urine Glucose (UA) Urine Ketones Urine Occult Blood Urine Nitrate Urine Bilirubin Urine Urobilinogen Ur Leukocyte Esterase Urine RBC Urine WBC Ur Squamous Epith Cells Amorphous Sediment Urine Bacteria Hyaline Casts Granular Casts Urine Mucus Ur Culture Indicated? U Opiates 300ng/mL cut Ur Oxycodone Screen Urine Methadone Screen Ur Barbiturates Screen U Tricyclic Antidepress Ur Phencyclidine Scrn Ur Amphetamines Screen U Methamphetamines Scrn Ur MDMA Scrn (Ecstasy) U Benzodiazepines Scrn Urine Cocaine Screen U Marijuana (THC) Screen Ethyl Alcohol COVID-19 PCR 05/12/20 05/12/20 05/12/20 14:58 16:06 21:55 WBC RBC Hgb Hct MCV MCH MCHC RDW Plt Count Neut % (Auto) Lymph % (Auto) [place] % (Auto) Eos % (Auto) Baso % (Auto) Neut # (Auto) Lymph # (Auto) [place] # (Auto) Eos # (Auto) Baso # (Auto) PT INR APTT Sodium Potassium Chloride Carbon Dioxide BUN Creatinine Estimated GFR BUN/Creatinine Ratio Glucose Lactate Calcium Magnesium Total Bilirubin AST ALT Alkaline Phosphatase Total Creatine Kinase CK-MB (CK-2) CK-MB (CK-2) Rel Index Troponin I NT-Pro-B Natriuret Pep Total Protein Albumin Globulin Albumin/Globulin Ratio Lipase Urine Color Urine Appearance Urine pH Ur Specific [place] Urine Protein Urine Glucose (UA) Urine Ketones Urine Occult Blood Urine Nitrate Urine Bilirubin Urine Urobilinogen Ur Leukocyte Esterase Urine RBC Urine WBC Ur Squamous Epith Cells Amorphous Sediment Urine Bacteria Hyaline Casts Granular Casts Urine Mucus Ur Culture Indicated? U Opiates 300ng/mL cut Negative Ur Oxycodone Screen Negative Urine Methadone Screen Negative Ur Barbiturates Screen Negative U Tricyclic Antidepress Negative Ur Phencyclidine Scrn Negative Ur Amphetamines Screen Negative U Methamphetamines Scrn Negative Ur MDMA Scrn (Ecstasy) Negative U Benzodiazepines Scrn Negative Urine Cocaine Screen Negative U Marijuana (THC) Screen Negative Ethyl Alcohol < 10 COVID-19 PCR Negative 05/12/20 21:55 WBC RBC Hgb Hct MCV MCH MCHC RDW Plt Count Neut % (Auto) Lymph % (Auto) [place] % (Auto) Eos % (Auto) Baso % (Auto) Neut # (Auto) Lymph # (Auto) [place] # (Auto) Eos # (Auto) Baso # (Auto) PT INR APTT Sodium Potassium Chloride Carbon Dioxide BUN Creatinine Estimated GFR BUN/Creatinine Ratio Glucose Lactate Calcium Magnesium Total Bilirubin AST ALT Alkaline Phosphatase Total Creatine Kinase CK-MB (CK-2) CK-MB (CK-2) Rel Index Troponin I NT-Pro-B Natriuret Pep Total Protein Albumin Globulin Albumin/Globulin Ratio Lipase Urine Color Yellow Urine Appearance Clear Urine pH 5.0 Ur Specific [place] 1.025 Urine Protein 1+ H Urine Glucose (UA) Negative Urine Ketones 1+ H Urine Occult Blood 3+ H Urine Nitrate Negative Urine Bilirubin Negative Urine Urobilinogen 0.2 Ur Leukocyte Esterase Negative Urine RBC 1-5/hpf Urine WBC 0-1/hpf Ur Squamous Epith Cells 0-1 /hpf Amorphous Sediment 1+ Urine Bacteria Few (2-10) H Hyaline Casts 1-5/lpf Granular Casts 1-5/lpf Urine Mucus 1+ H Ur Culture Indicated? Cult not indicated U Opiates 300ng/mL cut Ur Oxycodone Screen Urine Methadone Screen Ur Barbiturates Screen U Tricyclic Antidepress Ur Phencyclidine Scrn Ur Amphetamines Screen U Methamphetamines Scrn Ur MDMA Scrn (Ecstasy) U Benzodiazepines Scrn Urine Cocaine Screen U Marijuana (THC) Screen Ethyl Alcohol COVID-19 PCR Assessment & Plan Assessment & Plan narrative: Sean Cade is a 69-year-old male with an unknown medical history will be admitted as an inpatient for treatment and management of a lower extremity cellulitis as well as further workup of what appears to be some sort of encephalopathy of unknown cause and a new CHF diagnosis. Lower extremity cellulitis, acute, present on admission -has a significantly elevated white count at 18,900 with a left shift -continue vancomycin per pharmacy dosed -monitor daily CBCs Congestive heart failure, acute and new with a BNP of 4850, present on admission -patient was administered IV Lasix 20 mg today -patient be on a fluid restriction of 1500 mL per day -I have ordered a Arredondo be placed in the patient as he is incontinent of urine and so that he can also have his output correctly measured -troponin is trending downward -Echocardiogram in the morning Metabolic versus febrile encephalopathy, acute, present on admission -patient's temperature has finally normalized at 98 -UDS and serum alcohol levels were normal -lactate was normal on admission and trending down Elevated blood pressure without the diagnosis of hypertension -he was given a 1 time dose of lisinopril 10 mg p.o. Consults: none Patient is admitted under inpatient status with expected length of stay greater than 2 midnights due to severity of presenting symptoms, risk of adverse event, and complexity of treatment plan. FEN: 1500 ml fluid restriction, low sodium diet, BMP and magnesium in the am. VTE prophylaxis: Enoxaparin 40 mg subQ daily Dispo: Unknown at this time Code Status: Full Code presumed until patient clears enough to have a clear conversation
[2020-05-13 00:33] LABS: Lactate (Lactic Acid) 1.1 mmol/L (0.7-2.1)
[2020-05-13] MEDS: VANCOMYCIN 1,000 MG/200 ML PIGGYBACK 200 MG IV (05:25)
[2020-05-13 07:16] LABS: Add Manual Diff / Slide Review NO; Basophils Absolute Auto 0 /uL (0-100); Basophils Percent Auto 0.2 % (0-2); Eosinophils Absolute Auto 0 /uL (0-450); Eosinophils Percent Auto 0.1 % (2-4); Hematocrit 44.1 % (41-53); Hemoglobin 15.1 g/dL (13.5-17.5); Lymphocytes Absolute Auto 500 /uL (1100-4500); Mean Corpuscular HGB Conc 34.1 % (30-36); Mean Corpuscular Hemoglobin 32.8 PG (26-34); Mean Corpuscular Volume 96.2 fL (80-100); Monocytes Absolute Auto 600 /uL (0-900); Monocytes Percent Auto 4.1 % (3-14); Neutrophils Absolute Auto 14500 /uL (1500-7000); Neutrophils Percent Auto 92.6 % (50-75); Platelet Count 174 X10^3/uL (150-400); Red Blood Cell Count 4.59 X10^6/uL (4.5-5.9); Red Cell Distribution Width 13.2 % (11.6-14.8); White Blood Cell Count 15.6 X10^3/uL (4.5-11.0)
[2020-05-13 07:24] LABS: BUN Creatinine Ratio 27.7 (6-22); Blood Urea Nitrogen 26 mg/dL (9-20); Calcium 8.5 mg/dL (8.4-10.2); Carbon Dioxide 26 mmol/L (22-32); Chloride 105 mmol/L (98-107); Cholesterol 121 mg/dL (140-199); Estimated Glomerular Filt Rate > 60.0 mL/min (>60); Glucose 113 mg/dL (80-110); HDL Cholesterol 54 mg/dL (40-60); HEMOLYSIS < 15 (0-50); LDL Cholesterol Calculated 51 mg/dL (<100); Magnesium 2.1 mg/dL (1.6-2.3); Sodium 136 mmol/L (137-145); Triglycerides 79 mg/dL (35-150)
--- NOTE | 2020-05-13 08:00 | DI.CT.S_ITS ---
PROCEDURE: CT HEAD/BRAIN WO CON INDICATIONS: lethargy, encephalopathic TECHNIQUE: Noncontrast 4.5 mm thick angled axial sections acquired from the foramen magnum to the vertex, with coronal and sagittal reformats. For radiation dose reduction, the following was used: automated exposure control, adjustment of mA and/or kV according to patient size. COMPARISON: [facility], CT, CT HEAD/BRAIN WO CON, 08/05/2018, 12:48. FINDINGS: Image quality: Diagnostic, with note made of motion artifact. CSF spaces: Basal cisterns are patent. No extra-axial fluid collections. The ventricles are symmetric in size and shape. Brain: No intracranial bleeds or masses. There is cerebral volume loss for age, with resultant ventricular and sulcal prominence. There are periventricular and deep white matter chronic small vessel ischemic changes. There is intracranial internal carotid artery atherosclerosis. Dense calcification can be seen along the anterior falx, as on series 2 image 26. Skull and face: Calvarium and visualized facial bones appear intact, without suspicious lesions. Sinuses: Visualized sinuses and mastoids are clear. IMPRESSION: Unremarkable intracranial study for age, without an imaging explanation found for the presenting symptoms. If it would be helpful for clinical management decision making, please consider a dedicated brain MRI for further evaluation (assuming that there is no contraindication). Dictated by: Hamzah Hummel M.D. on 05/13/2020 at 8:21 Approved by: Hamzah Hummel M.D. on 05/13/2020 at 8:23
[2020-05-13] MEDS: ASPIRIN EC 81 MG TABLET PO (09:16)
[2020-05-13] MEDS: ENOXAPARIN 40 MG/0.4 ML SYRINGE SUBCUT (09:16)
--- NOTE | 2020-05-13 09:30 | PT.IIE ---
Current Diagnoses Cellulitis of left lower limb (05/12/20) Surgical History (Last Reviewed 05/13/20 @ 00:37 by ARAMIS Contreras) No pertinent past surgical history (Acute) Medical History (Last Reviewed 05/13/20 @ 00:37 by ARAMIS Contreras) Cellulitis of left leg (Acute) Congestive heart failure (Acute) Elevated troponin (Acute) Hypertension (Acute) Physical Therapy Inpatient Evaluation/Re-Eval M1 PT/OT-IP Prior Functional Status Start: 05/13/20 11:24 Freq: NEEDED Status: Active Protocol: Document 05/13/20 09:30 AB (Rec: 05/13/20 11:57 AB [id number]) Medical Review Prior Functional Status Medical History Reviewed Yes Communication able to make needs known Mobility and Gait pt stated that he is modified independent with all mobilities and ambulation using SPC Social History Household Members other Living Arrangements Homeless Number of Stairs To Enter/Railing? pt lives in a car Additional Social History Comment pt stated that he uses the public/portable toilets and the shower in the [place] M2 PT-IP Current Condition Start: 05/13/20 11:24 Freq: NEEDED Status: Active Protocol: Document 05/13/20 09:30 AB (Rec: 05/13/20 11:57 AB [id number]) Physical Therapy Current Condition Current Condition Evaluation Date 05/13/20 Treatment Diagnosis CHF; LLE cellulitis; difficulty in walking Onset Date 05/12/20 M3 PT-IP Subjective Start: 05/13/20 11:24 Freq: NEEDED Status: Active Protocol: Document 05/13/20 09:30 AB (Rec: 05/13/20 11:57 AB [id number]) Subjective Physical Therapy Visit Type Type Initial Evaluation Visit Start Time 09:30 Visit Stop Time 09:59 Total Visit Minutes 29 Number of SENIOR QUALITY TECHNICIAN Visits 0 Physical Therapy Visit Comments Patient Comments pt is agreeable to do PT Therapy Pain Assessment Pain Present Pain Present Denied Pain M4 PT-IP Mobility and Gait Start: 05/13/20 11:24 Freq: NEEDED Status: Active Protocol: Document 05/13/20 09:30 AB (Rec: 05/13/20 11:57 AB [id number]) PT-Bed Mobility Assessment Supine to Sit Supine to Sit Minimal Assistance,1 Person Assistance,Head of Bed Elevated,Bedrails Sit to Supine Sit to Supine Minimal Assistance PT-Transfer Assessment Sit to and From Stand Sit to and from Stand Minimal Assistance,Moderate Assistance,1 Person Assistance ,Use of Upper Extremities Equipment Transfer Assistive Device Gait Belt,Front Wheeled Walker Orthotic/Prosthetic Devices or Brace: No Comments Mobility Comments pt completed supine to sit min to mod A and cues. pt can be impulsive. completed sit to stand min to mod A and cues for safety. completed ambulation in room using FWW 25 ft min A and cues. pt needed to be cleaned up and brief change: pt was able to maintain standing using FWW for support while NAC assist pt with hygiene care and brief management. cardiac technician came in and needed to do ECHO and pt has to be back in bed. pt went back to bed. completed sit to supine min A. positioned pt in bed. call light and table placed within reach. Gait Assessment Gait Gait Assistance Required: Minimum Assistance Distance (Feet) 25 Able to Maintain Weight Bearing Status Yes During Gait Assistive Devices Assistive Device Gait Belt,Front Wheeled Walker Orthotic/Prosthetic Devices or Brace: No Gait Deviations General Gait Pattern Antalgic,Decreased Stride Length,Decreased Feet Clearance,Lateral Trunk Lean, Step-to Gait,Wide Based Gait Factors Limiting Gait Function Factors Limiting Gait Function Decreased Activity Tolerance, Decreased Strength,Poor Balance,Poor Safety Awareness Comments Gait Comments pt presents with a shuffling gait with increase forward trunk posture. PT-Balance Assessment Sitting Balance and Reactions Static Sitting Balance Ability Good Dynamic Sitting Balance Ability Fair Standing Balance and Reactions Static Standing Balance Ability Fair Dynamic Standing Balance Ability Fair Device Used FWW M5 PT-IP Objective Assessments Start: 05/13/20 11:24 Freq: NEEDED Status: Active Protocol: Document 05/13/20 09:30 AB (Rec: 05/13/20 11:57 AB [id number]) Orientation Orientation/Cognition Level of Alertness Alert Orientation Name,Place,Situation Safety Awareness Decreased Safety Awareness Memory Description Short Term Impaired Gross Range of Motion Lower Extremity ROM Assessment Within Functional Limits Strength Lower Extremity Strength Assessment Bilaterally Impaired Hip 4-/5 Knee RLE: 4-/5 LLE: 3+/5 Coordination Assessment Gross Coordination Gross Coordination WNL Muscle Tone Muscle Tone WNL Yes M6 PT-IP Treatment Start: 05/13/20 11:24 Freq: NEEDED Status: Active Protocol: Document 05/13/20 09:30 AB (Rec: 05/13/20 11:57 AB [id number]) Physical Therapy Treatment Education Education Provided Safety M7 PT-IP Assessment and Plan Start: 05/13/20 11:24 Freq: NEEDED Status: Active Protocol: Document 05/13/20 09:30 AB (Rec: 05/13/20 11:57 AB [id number]) PT Summary Assessment and Plan Potential Rehabilitation Potential Good Status of Condition at Evaluation Evolving Summary Impairments Pain,ROM,Strength,Balance, Coordination,Sensation, Cognition,Bed Mobility, Transfers,Gait,Activity Tolerance Assessment Summary pt requiring min to mod A with mobility and is impulsive. d /c plan depending on progress but pt may require SNF rehab at this time. Goals Bed Mobility Goal Independent Transfer Goal Independent,Front Wheeled Walker Gait Goal Independent,Front Wheel Walker Gait Distance 200 Other Goals ambulation using SPC 250 ft SBA Days to Meet Goals 5 Frequency of Treatment Frequency Of Treatment Once a Day Treatment Plan Physical Therapy Treatment Plan Bed Mobility Training,Transfer Training,Gait Training, Therapeutic Exercise,Balance Retraining,Discharge Planning, Hot or Cold Pack,Neuromuscular Re-ed,Coordination Retraining Recommendations To Nursing Amount of Assist Needed 1 Person Assist Discharge Recommendations PT Discharge Recommendations Home Equipment Needed for Home Before FWW if not safe with SPC Discharge Transportation Needs at Discharge Private Vehicle,Wheelchair/ Cabulance
--- NOTE | 2020-05-13 11:29 | PM.PN.1 ---
Subjective Subjective Date Patient Seen: 05/13/20 Interval history: The Patient is a 69 y/o male admitted to the hospital after falling out of bed. He was found to have cellulitis of the right leg and Congestive Heart Failure. He is more awake, alert, and appropriate today. He reports swelling in his legs began several weeks ago. He also reports redness of the right leg began recently. He denies shortness of breath or chest pain Exam Vital Signs (past 8 hours): - 05/13/20 04:52 05/13/20 08:00 Temperature 99.9 F H 99.4 F Pulse Rate 98 H 67 Respiratory Rate 16 16 Blood Pressure 139/82 129/63 Pulse Oximetry 97 96 Oxygen Delivery Method Room Air Oxygen Flow Rate 0 Narrative Exam Narrative: Pleasant ill appearing male in no acute distress Lungs: decreased breath sounds but clear to auscultation CV: RRR nl Sl S2 Abd: Soft/ non tender/ Non distended Ext: 2-3 + edema bilaterally Right leg with erythema, warmth and swelling, no blisters or ulcerations noted Objective Labs Result Diagrams: 05/13/20 07:00 05/13/20 07:00 Labs: Laboratory Results - last 24 hr 05/12/20 05/12/20 05/12/20 12:15 12:15 12:15 WBC 18.9 H RBC 4.87 Hgb 16.1 Hct 47.8 MCV 98.1 MCH 33.0 MCHC 33.6 RDW 13.2 Plt Count 179 Neut % (Auto) 95.1 H Lymph % (Auto) 1.7 L Refugio % (Auto) 3.0 Eos % (Auto) 0.0 L Baso % (Auto) 0.2 Neut # (Auto) 46614 H Lymph # (Auto) 300 L Refugio # (Auto) 600 Eos # (Auto) 0 Baso # (Auto) 0 PT 13.2 H INR 1.1 APTT 27 D Sodium 137 Potassium 3.7 Chloride 102 Carbon Dioxide 31 BUN 21 H Creatinine 0.86 Estimated GFR > 60.0 BUN/Creatinine Ratio 24.4 H Glucose 106 Lactate Calcium 9.5 Magnesium 2.1 Total Bilirubin 1.1 AST 47 ALT 17 Alkaline Phosphatase 91 Total Creatine Kinase 1105 H CK-MB (CK-2) 5.90 H CK-MB (CK-2) Rel Index 0.5 L Troponin I 0.042 H NT-Pro-B Natriuret Pep Total Protein 6.9 Albumin 4.0 Globulin 2.9 Albumin/Globulin Ratio 1.4 Triglycerides Cholesterol LDL Cholesterol, Calc HDL Cholesterol Lipase 19 L Urine Color Urine Appearance Urine pH Ur Specific Dumont Urine Protein Urine Glucose (UA) Urine Ketones Urine Occult Blood Urine Nitrate Urine Bilirubin Urine Urobilinogen Ur Leukocyte Esterase Urine RBC Urine WBC Ur Squamous Epith Cells Amorphous Sediment Urine Bacteria Hyaline Casts Granular Casts Urine Mucus Ur Culture Indicated? U Opiates 300ng/mL cut Ur Oxycodone Screen Urine Methadone Screen Ur Barbiturates Screen U Tricyclic Antidepress Ur Phencyclidine Scrn Ur Amphetamines Screen U Methamphetamines Scrn Ur MDMA Scrn (Ecstasy) U Benzodiazepines Scrn Urine Cocaine Screen U Marijuana (THC) Screen Ethyl Alcohol COVID-19 [facility] 05/12/20 05/12/20 05/12/20 14:58 14:58 14:58 WBC RBC Hgb Hct MCV MCH MCHC RDW Plt Count Neut % (Auto) Lymph % (Auto) Refugio % (Auto) Eos % (Auto) Baso % (Auto) Neut # (Auto) Lymph # (Auto) Refugio # (Auto) Eos # (Auto) Baso # (Auto) PT INR APTT Sodium Potassium Chloride Carbon Dioxide BUN Creatinine Estimated GFR BUN/Creatinine Ratio Glucose Lactate 1.5 Calcium Magnesium Total Bilirubin AST ALT Alkaline Phosphatase Total Creatine Kinase 1100 H CK-MB (CK-2) 4.32 H CK-MB (CK-2) Rel Index 0.4 L Troponin I 0.040 H NT-Pro-B Natriuret Pep 4850 H Total Protein Albumin Globulin Albumin/Globulin Ratio Triglycerides Cholesterol LDL Cholesterol, Calc HDL Cholesterol Lipase Urine Color Urine Appearance Urine pH Ur Specific Dum[place] Urine Protein Urine Glucose (UA) Urine Ketones Urine Occult Blood Urine Nitrate Urine Bilirubin Urine Urobilinogen Ur Leukocyte Esterase Urine RBC Urine WBC Ur Squamous Epith Cells Amorphous Sediment Urine Bacteria Hyaline Casts Granular Casts Urine Mucus Ur Culture Indicated? U Opiates 300ng/mL cut Ur Oxycodone Screen Urine Methadone Screen Ur Barbiturates Screen U Tricyclic Antidepress Ur Phencyclidine Scrn Ur Amphetamines Screen U Methamphetamines Scrn Ur MDMA Scrn (Ecstasy) U Benzodiazepines Scrn Urine Cocaine Screen U Marijuana (THC) Screen Ethyl Alcohol COVID-19 PCR 05/12/20 05/12/20 05/12/20 14:58 16:06 21:55 WBC RBC Hgb Hct MCV MCH MCHC RDW Plt Count Neut % (Auto) Lymph % (Auto) Refugio % (Auto) Eos % (Auto) Baso % (Auto) Neut # (Auto) Lymph # (Auto) Refugio # (Auto) Eos # (Auto) Baso # (Auto) PT INR APTT Sodium Potassium Chloride Carbon Dioxide BUN Creatinine Estimated GFR BUN/Creatinine Ratio Glucose Lactate Calcium Magnesium Total Bilirubin AST ALT Alkaline Phosphatase Total Creatine Kinase CK-MB (CK-2) CK-MB (CK-2) Rel Index Troponin I NT-Pro-B Natriuret Pep Total Protein Albumin Globulin Albumin/Globulin Ratio Triglycerides Cholesterol LDL Cholesterol, Calc HDL Cholesterol Lipase Urine Color Urine Appearance Urine pH Ur Specific Dum[place] Urine Protein Urine Glucose (UA) Urine Ketones Urine Occult Blood Urine Nitrate Urine Bilirubin Urine Urobilinogen Ur Leukocyte Esterase Urine RBC Urine WBC Ur Squamous Epith Cells Amorphous Sediment Urine Bacteria Hyaline Casts Granular Casts Urine Mucus Ur Culture Indicated? U Opiates 300ng/mL cut Negative Ur Oxycodone Screen Negative Urine Methadone Screen Negative Ur Barbiturates Screen Negative U Tricyclic Antidepress Negative Ur Phencyclidine Scrn Negative Ur Amphetamines Screen Negative U Methamphetamines Scrn Negative Ur MDMA Scrn (Ecstasy) Negative U Benzodiazepines Scrn Negative Urine Cocaine Screen Negative U Marijuana (THC) Screen Negative Ethyl Alcohol < 10 COVID-19 PCR Negative 05/12/20 05/13/20 05/13/20 21:55 00:15 07:00 WBC 15.6 H RBC 4.59 Hgb 15.1 Hct 44.1 MCV 96.2 MCH 32.8 MCHC 34.1 RDW 13.2 Plt Count 174 Neut % (Auto) 92.6 H Lymph % (Auto) 3.0 L Refugio % (Auto) 4.1 Eos % (Auto) 0.1 L Baso % (Auto) 0.2 Neut # (Auto) 99933 H Lymph # (Auto) 500 L Refugio # (Auto) 600 Eos # (Auto) 0 Baso # (Auto) 0 PT INR APTT Sodium Potassium Chloride Carbon Dioxide BUN Creatinine Estimated GFR BUN/Creatinine Ratio Glucose Lactate 1.1 Calcium Magnesium Total Bilirubin AST ALT Alkaline Phosphatase Total Creatine Kinase CK-MB (CK-2) CK-MB (CK-2) Rel Index Troponin I NT-Pro-B Natriuret Pep Total Protein Albumin Globulin Albumin/Globulin Ratio Triglycerides Cholesterol LDL Cholesterol, Calc HDL Cholesterol Lipase Urine Color Yellow Urine Appearance Clear Urine pH 5.0 Ur Specific Dumont 1.025 Urine Protein 1+ H Urine Glucose (UA) Negative Urine Ketones 1+ H Urine Occult Blood 3+ H Urine Nitrate Negative Urine Bilirubin Negative Urine Urobilinogen 0.2 Ur Leukocyte Esterase Negative Urine RBC 1-5/hpf Urine WBC 0-1/hpf Ur Squamous Epith Cells 0-1 /hpf Amorphous Sediment 1+ Urine Bacteria Few (2-10) H Hyaline Casts 1-5/lpf Granular Casts 1-5/lpf Urine Mucus 1+ H Ur Culture Indicated? Cult not indicated U Opiates 300ng/mL cut Ur Oxycodone Screen Urine Methadone Screen Ur Barbiturates Screen U Tricyclic Antidepress Ur Phencyclidine Scrn Ur Amphetamines Screen U Methamphetamines Scrn Ur MDMA Scrn (Ecstasy) U Benzodiazepines Scrn Urine Cocaine Screen U Marijuana (THC) Screen Ethyl Alcohol COVID-19 PCR 05/13/20 07:00 WBC RBC Hgb Hct MCV MCH MCHC RDW Plt Count Neut % (Auto) Lymph % (Auto) Refugio % (Auto) Eos % (Auto) Baso % (Auto) Neut # (Auto) Lymph # (Auto) Refugio # (Auto) Eos # (Auto) Baso # (Auto) PT INR APTT Sodium 136 L Potassium 3.0 L Chloride 105 Carbon Dioxide 26 BUN 26 H Creatinine 0.94 Estimated GFR > 60.0 BUN/Creatinine Ratio 27.7 H Glucose 113 H Lactate Calcium 8.5 Magnesium 2.1 Total Bilirubin AST ALT Alkaline Phosphatase Total Creatine Kinase CK-MB (CK-2) CK-MB (CK-2) Rel Index Troponin I NT-Pro-B Natriuret Pep Total Protein Albumin Globulin Albumin/Globulin Ratio Triglycerides 79 Cholesterol 121 L LDL Cholesterol, Calc 51 HDL Cholesterol 54 Lipase Urine Color Urine Appearance Urine pH Ur Specific Dum[place] Urine Protein Urine Glucose (UA) Urine Ketones Urine Occult Blood Urine Nitrate Urine Bilirubin Urine Urobilinogen Ur Leukocyte Esterase Urine RBC Urine WBC Ur Squamous Epith Cells Amorphous Sediment Urine Bacteria Hyaline Casts Granular Casts Urine Mucus Ur Culture Indicated? U Opiates 300ng/mL cut Ur Oxycodone Screen Urine Methadone Screen Ur Barbiturates Screen U Tricyclic Antidepress Ur Phencyclidine Scrn Ur Amphetamines Screen U Methamphetamines Scrn Ur MDMA Scrn (Ecstasy) U Benzodiazepines Scrn Urine Cocaine Screen U Marijuana (THC) Screen Ethyl Alcohol COVID-19 PCR Assessment & Plan Assessment & Plan narrative: 1. 69 y/o male admitted following a GLF. Here with Cellulitis of the RLE -Right Leg is Warm -Elevated WBC of 15.6 -Febrile to 100 today -no pustules/ulcers, doubt MRSA -Will d//c Vanco -Start Cefazolin -Tylenol for fever 2. Acute Congestive Heart Failure -BNP 4850 -good response to lasix, will continue 40 mg IV daily -await Cardiac Echo 3. Type 2 Myocardial Infarction -EKG no acute ST Twave changes -suspect demand ischemia secondary to heart failure -continue ASA -Await Echo -consider B-tariq 4. Hypertension -continue lisinopril 5. GLF, weakness -continue PT/OT -likely would benefit from SNF 6. Acute Metabolic Encephalopathy, present on admission -Improved
--- NOTE | 2020-05-13 12:32 | CM.IDA ---
Addendum entered by Aracelis JACK Gaming 05/13/20 13:41: Correction: [facility] does not take patient's type of Hum[employer] coverage Addendum entered by Aracelis Randleniewski, TUBE HEATER 05/13/20 13:40: [facility] does not take Hum[employer] Original Note: Initial DCP Assessment Note Patient, Daniela, is a 69 yo male, currently homeless and living out of his car. Patient has used the motel voucher program through [facility]; [facility]. Patient presents w/ cellulitis of the RLE, acute CHF, type 2 AR, hypertension, and acute metabolic encephalopathy which has much improved Payer: Antonio BAILEY Reviewed chart. Patient discussed in multidisciplinary rounds; Dr Nicole hopeful patient could DC to SNF to manage multiple medical co-morbidities, new cellulitis, and PT/OT for strengthening. Patient agreeable to this. patient is expected to DC on oral meds. Met w/patient, explained SW role. Patient is very pleasant, calm, some mild cognitive delay noted. Patient's only contact is his sister, Yusra, who lives in [place] P# [phone]. According to our conversation: Patient has been transient for many years, is not currently on RAYMOND, does not know what RAYMOND is. Patient had stable housing in [place] for at least 6 months, not subsidized housing, but [employer] sold this property and patient was asked to vacate. 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 Patient has food stamps but doesn't think he has ever completed an application for RAYMOND. Patient's phone is currently , he has asked his sister to call a few friends that might be able to assist in gathering his belongings from [facility] and bringing them here. Patient explains he has been able to manage mostly independently but might have benefited from a walker in the motel. Patient denies daily drug or alcohol use, states he drinks a pint or two at [employer] [facility] [employer]) every other week or so. PT has assessed this morning and notes indicate patient would benefit from SNF but may be cleared for return home w/ FWW Patient does not take any medications and can't remember the last time he has been to the doctor. Patient has no children. Patient has placed his name on the waiting list at [facility] (subsidized/[facility]) which is approx a 5 year wait time. Patient makes approx $1,200 in SS and would be agreeable to living in an [facility] if there was one available to him and he qualified for funding through [facility]. This TUBE HEATER placed call to February at [facility]; they do not accept Humana MCR. This TUBE HEATER scheduled Friday05.14.20 and will likely return to bedside to complete the [facility] Senior Linux Unix Administrator Care application w/patient. Once completed, DCP team will need to fax w/ expedited review/assessment request to [facility] Friday. Will attempt SNF search, [facility] and [facility] may consider [employer] MCR. JACK Jose
[2020-05-13] MEDS: POTASSIUM CHLORIDE 20 MEQ TAB 40 MEQ PO (12:40)
[2020-05-13] MEDS: CEFAZOLIN 2 GM/100 ML FROZ.PIGGY IV ×2 (12:41→19:35)
[2020-05-13] MEDS: FUROSEMIDE 40 MG/4 ML VIAL IV (12:41)
--- NOTE | 2020-05-13 14:34 | PC.NURSE ---
PT ALERT/ORIENTED AND COMPLIANT WITH HOSPITAL PLANS- NO TELE ORDERED, LUNGS DIM THROUGHOUT AND FEW FINE CRACKLES AUSCULTATED AT BEGINNING OF SHIFT BUT HAS CLEARED WITH IV LASIX DOSE- VASQUEZ PATENT - RECEIVING ANCEF FOR CELLULITIS - CASE MANAGEMENT WORKING ON DISPOSITION FOR THIS GENTLEMAN WHOM IS HOMELESS AND LIVING IN CAR
[2020-05-13] MEDS: SODIUM CHLORIDE 0.9% 250 ML 100 ML IV (19:30)
[2020-05-13] MEDS: SODIUM CHLORIDE 0.9% FLUSH 10 ML IV (19:35)
[2020-05-14] VITALS (12 sets, daily range): BP systolic 112–198; BP diastolic 68–98; PULSE 52–110; RESP 16–23; TEMP 36.6–37.1; O2SAT 94–98
[2020-05-14] MEDS: CEFAZOLIN 2 GM/100 ML FROZ.PIGGY IV ×3 (03:47→20:40)
[2020-05-14] MEDS: ONDANSETRON 4 MG/2 ML INJ IV ×2 (05:01→13:46)
[2020-05-14 05:56] LABS: BUN Creatinine Ratio 31.7 (6-22); Blood Urea Nitrogen 38 mg/dL (9-20); Calcium 8.6 mg/dL (8.4-10.2); Carbon Dioxide 23 mmol/L (22-32); Chloride 103 mmol/L (98-107); Estimated Glomerular Filt Rate > 60.0 mL/min (>60); Glucose 130 mg/dL (80-110); HEMOLYSIS < 15 (0-50); Potassium 3.1 mmol/L (3.4-5.1); Sodium 134 mmol/L (137-145)
[2020-05-14 06:04] LABS: Troponin I 0.028 ng/mL (0.01-0.034)
[2020-05-14] MEDS: ENOXAPARIN 40 MG/0.4 ML SYRINGE SUBCUT (09:36)
[2020-05-14] MEDS: FUROSEMIDE 40 MG/4 ML VIAL IV (09:36)
[2020-05-14] MEDS: ACETAMINOPHEN 325 MG TABLET 650 MG PO (09:36)
[2020-05-14] MEDS: POTASSIUM CHLORIDE 20 MEQ TAB 40 MEQ PO (09:37)
[2020-05-14] MEDS: ASPIRIN EC 81 MG TABLET PO (09:37)
[2020-05-14] MEDS: SODIUM CHLORIDE 0.9% FLUSH 10 ML IV ×2 (09:37→20:41)
--- NOTE | 2020-05-14 10:59 | PT.IPTN ---
Current Diagnoses Cellulitis of left lower limb (05/12/20) Physical Therapy Treatment Note M2 PT-IP Current Condition Start: 05/13/20 11:24 Freq: NEEDED Status: Active Protocol: Document 05/13/20 09:30 AB (Rec: 05/13/20 11:57 AB [id number]) Physical Therapy Current Condition Current Condition Evaluation Date 05/13/20 Treatment Diagnosis CHF; LLE cellulitis; difficulty in walking Onset Date 05/12/20 M3 PT-IP Subjective Start: 05/13/20 11:24 Freq: NEEDED Status: Active Protocol: Document 05/14/20 10:42 CLB (Rec: 05/14/20 11:23 CLB [id number]) Subjective Physical Therapy Visit Type Type Treatment Note Visit Start Time 10:42 Visit Stop Time 10:59 Total Visit Minutes 17 Number of BREAKER ENGINEER Visits 1 Physical Therapy Visit Comments Patient Comments pt is agreeable to do PT Therapy Pain Assessment Pain Present Pain Present Denied Pain M4 PT-IP Mobility and Gait Start: 05/13/20 11:24 Freq: NEEDED Status: Active Protocol: Document 05/14/20 10:42 CLB (Rec: 05/14/20 11:23 CLB [id number]) PT-Bed Mobility Assessment Supine to Sit Supine to Sit Standby Assistance,1 Person Assistance,Head of Bed Elevated Scooting Scooting to Edge of Bed Standby Assistance PT-Transfer Assessment Sit to and From Stand Sit to and from Stand Contact Guard Assistance,1 Person Assistance,Use of Upper Extremities Equipment Transfer Assistive Device Gait Belt,Front Wheeled Walker Orthotic/Prosthetic Devices or Brace: No Transfers Transfer Destination Chair Transfer Ability Level of Assist Contact Guard Assistance Comments Mobility Comments Pt required SBA for bed mobility with HOB elevated. Pt able to get to EOB with SBA and cues for feet on floor. Pt required cues for bed push off and required CGA. Pt ambulated in room w/FWW/Min A and cues to stay inside walker and for posture. Pt sat in chair requiring cues to keep walker close and to back up to chair feeling chair on legs before sitting down for safety . Pt reclined in chair and performed seated ther ex. Pt left in chair with chair alarm on, call light and all other needs within reach. RN informed pt requesting yogurt and cranberry juice. Gait Assessment Gait Gait Assistance Required: Minimum Assistance Distance (Feet) 25 Able to Maintain Weight Bearing Status Yes During Gait Assistive Devices Assistive Device Gait Belt,Front Wheeled Walker Orthotic/Prosthetic Devices or Brace: No Gait Deviations General Gait Pattern Antalgic,Decreased Stride Length,Decreased Feet Clearance,Lateral Trunk Lean, Step-to Gait,Wide Based Gait Factors Limiting Gait Function Factors Limiting Gait Function Decreased Activity Tolerance, Decreased Strength,Poor Balance,Poor Safety Awareness Comments Gait Comments Pt requiring max cues for safety during gait with use of FWW, pt also reaches out for foot board and sink counter for support when passing by even though pt is using FWW. Pt continues with shuffling gait and requires cues for posture. M5 PT-IP Objective Assessments Start: 05/13/20 11:24 Freq: NEEDED Status: Active Protocol: Document 05/13/20 09:30 AB (Rec: 05/13/20 11:57 AB [id number]) Orientation Orientation/Cognition Level of Alertness Alert Orientation Name,Place,Situation Safety Awareness Decreased Safety Awareness Memory Description Short Term Impaired Gross Range of Motion Lower Extremity ROM Assessment Within Functional Limits Strength Lower Extremity Strength Assessment Bilaterally Impaired Hip 4-/5 Knee RLE: 4-/5 LLE: 3+/5 Coordination Assessment Gross Coordination Gross Coordination WNL Muscle Tone Muscle Tone WNL Yes M6 PT-IP Treatment Start: 05/13/20 11:24 Freq: NEEDED Status: Active Protocol: Document 05/14/20 10:42 CLB (Rec: 05/14/20 11:23 CLB [id number]) Physical Therapy Treatment Exercises Exercises Ankle Pumps,Quad Sets Education Education Provided Safety M7 PT-IP Assessment and Plan Start: 05/13/20 11:24 Freq: NEEDED Status: Active Protocol: Document 05/14/20 10:42 CLB (Rec: 05/14/20 11:23 CLB [id number]) PT Summary Assessment and Plan Summary Impairments Pain,ROM,Strength,Balance, Coordination,Sensation, Cognition,Bed Mobility, Transfers,Gait,Activity Tolerance Assessment Summary Pt improving with bed mobility and sit<>stand, pt continues to be impulsive and requires max cuing during gait for walker use and safety. Goals Bed Mobility Goal Independent Transfer Goal Independent,Front Wheeled Walker Gait Goal Independent,Front Wheel Walker Gait Distance 200 Other Goals ambulation using SPC 250 ft SBA Days to Meet Goals 5 Frequency of Treatment Frequency Of Treatment Once a Day Treatment Plan Physical Therapy Treatment Plan Bed Mobility Training,Transfer Training,Gait Training, Therapeutic Exercise,Balance Retraining,Discharge Planning, Hot or Cold Pack,Neuromuscular Re-ed,Coordination Retraining Recommendations To Nursing Amount of Assist Needed 1 Person Assist Discharge Recommendations PT Discharge Recommendations Home Equipment Needed for Home Before FWW if not safe with SPC Discharge Transportation Needs at Discharge Private Vehicle,Wheelchair/ Cabulance
--- NOTE | 2020-05-14 12:37 | P.PN_ITS ---
Subjective Subjective Date Patient Seen: 05/14/20 Interval history: Patient is a 69-year-old male admitted to the hospital the patient is a 69-year-old male who was admitted to the hospital with left not right lower extremity cellulitis and congestive heart failure. he has had improvement of his lower extremity edema. He continues to have some redness of the left lower extremity but it is improving he remains hypertensive. He is seen by physical therapy and occupation and felt to be unsteady and unsafe for discharge home at this time. He denies an Exam Vital Signs (past 8 hours): - 05/14/20 05:12 05/14/20 07:00 05/14/20 08:00 Temperature 98.7 F 98.1 F Pulse Rate 54 L 52 L Respiratory Rate 18 18 Blood Pressure 188/94 H 172/91 H Pulse Oximetry 94 96 96 Oxygen Delivery Method Room Air Oxygen Flow Rate 0 Narrative Exam Narrative: Pleasant gentleman in no acute distress lungs: Clear to auscultation cardiac exam: Regular rate rhythm normal S1-S2 with a 2/6 systolic ejection m urmur abdomen: Soft nontender nondistended extremities: 2+ pitting edema bilaterally, erythema of the left lower extremity mom a decreased warmth of the left lower extremity Objective Labs Result Diagrams: 05/13/20 07:00 05/14/20 04:50 Labs: Laboratory Results - last 24 hr 05/14/20 04:50 Sodium 134 L Potassium 3.1 L Chloride 103 Carbon Dioxide 23 BUN 38 H Creatinine 1.20 Estimated GFR > 60.0 BUN/Creatinine Ratio 31.7 H Glucose 130 H Calcium 8.6 Troponin I 0.028 Assessment & Plan Assessment & Plan narrative: 1. left lower extremity cellulitis - continue leg elevation - continue IV cefazolin - no evidence to suggest MRSA infection - likely can switch to oral antibiotics tomorrow 2 acute congestive heart failure with preserved left ventricular ejection fraction - echo -the left ventricle is normal in size. There is moderate asymmetric left ventricular hypertrophy. There is no echo evidence for significant left ventricular outflow tract obstruction. No systolic anterior motion of the mitral valve. The ejection fraction is estimated to be 55-60%. The right ventricle is at the upper limits of normal in size. The right ventricular systolic function is normal. There is mild mitral regurgitation. The IVC is dilated (diameter is greater than 2.1 cm) yet it collapses greater than 50% with a sniff. This suggests a right atrial pressure of 8 mm Hg. - discontinue IV Lasix given increasing BUN and creatinine will start 20 mg of oral Lasix given persistent edema 3. type 2 myocardial infarction - troponins trending to normal - echo shows no wall motion abnormality 4. hypertension - will start amlodipine 5 mg, given low resting heart rate 5. Fall - head CT negative -PT/OT consultation -Likely will need placement at discharge 6. hypokalemia -will replace Anticipate discharge home 1-2 days once placement can be arranged.
[2020-05-14] MEDS: AMLODIPINE 5 MG TABLET PO (12:42)
--- NOTE | 2020-05-14 13:53 | PC.NURSE ---
PATIENT DIDN'T EAT BREAKFAST THIS AM, STATES HE JUST DIDN'T WANT IT. HE HAD BEEN GIVEN ZOFRAN AROUND 0500 BY NOC SHIFT. HE ATE [facility] FOR LUNCH, HE DIDN'T FEEL UP TO HAVING HIS LUNCH TRAY, SIPPING ON CRAN JUICE. PATIENT HAD SUDDEN ONSET OF 75CC'S BROWNISH BILE EMESIS. GIVEN IV ZOFRAN. GIVEN PRUNE JUICE PER HIS REQUEST. DENIES ABD PAIN. HE IS STILL SITTING IN RECLINER AFTER PHYSICAL THERAPY WORKED WITH HIM LATE MORNING. DID WILL PHYSICAL THERAPY, 1P ASSIST. CHAIR ALARM ON.
--- NOTE | 2020-05-14 16:03 | CM.DPC ---
DCP continued: EMR reviewed: FRANCO/RN faxed application for medicaid and the expedited [employer] application. FRANCO/Rn Will follow up tomorrow with Home and community services about services for patient. Franco/Rn will also attempt to find SNF and LTC facilities for patient at D/C. Hawa Talamantes Rn
[2020-05-14] MEDS: HYDRALAZINE 20 MG/ML VIAL IV (16:43)
[2020-05-14] MEDS: METOCLOPRAMIDE 10 MG/2 ML INJ IV (16:45)
[2020-05-14] MEDS: polyethylene glycoL 3350 17 GM POWD.PACK PO (20:40)
[2020-05-14] MEDS: BISACODYL 5 MG TABLET 10 MG PO (20:41)
[2020-05-14] MEDS: SENNOSIDES 8.6 MG TABLET 17.2 MG PO (20:41)
[2020-05-15] VITALS (8 sets, daily range): BP systolic 130–158; BP diastolic 70–93; PULSE 81–100; RESP 16–20; TEMP 36.1–37.2; O2SAT 92–97
[2020-05-15] MEDS: CEFAZOLIN 2 GM/100 ML FROZ.PIGGY IV ×3 (04:26→20:56)
[2020-05-15 05:44] LABS: BUN Creatinine Ratio 35.3 (6-22); Blood Urea Nitrogen 30 mg/dL (9-20); Calcium 8.4 mg/dL (8.4-10.2); Carbon Dioxide 29 mmol/L (22-32); Chloride 104 mmol/L (98-107); Estimated Glomerular Filt Rate > 60.0 mL/min (>60); Glucose 114 mg/dL (80-110); HEMOLYSIS < 15 (0-50); Sodium 136 mmol/L (137-145)
[2020-05-15 08:14] LABS: Add Manual Diff / Slide Review NO; Basophils Absolute Auto 100 /uL (0-100); Basophils Percent Auto 0.6 % (0-2); Eosinophils Absolute Auto 0 /uL (0-450); Eosinophils Percent Auto 0.3 % (2-4); Hematocrit 41.2 % (41-53); Hemoglobin 13.8 g/dL (13.5-17.5); Lymphocytes Absolute Auto 1000 /uL (1100-4500); Lymphocytes Percent Auto 12.1 % (25-40); Mean Corpuscular HGB Conc 33.5 % (30-36); Mean Corpuscular Hemoglobin 32.5 PG (26-34); Mean Corpuscular Volume 96.8 fL (80-100); Monocytes Absolute Auto 600 /uL (0-900); Monocytes Percent Auto 7.9 % (3-14); Neutrophils Absolute Auto 6400 /uL (1500-7000); Neutrophils Percent Auto 79.1 % (50-75); Platelet Count 201 X10^3/uL (150-400); Red Blood Cell Count 4.25 X10^6/uL (4.5-5.9); Red Cell Distribution Width 13.1 % (11.6-14.8); White Blood Cell Count 8.1 X10^3/uL (4.5-11.0)
[2020-05-15 08:18] LABS: Magnesium 2.3 mg/dL (1.6-2.3)
[2020-05-15 08:37] LABS: Procalcitonin 1.16 ng/mL (<0.5)
[2020-05-15] MEDS: polyethylene glycoL 3350 17 GM POWD.PACK PO ×2 (10:19→20:56)
[2020-05-15] MEDS: SENNOSIDES 8.6 MG TABLET 17.2 MG PO ×2 (10:19→20:56)
[2020-05-15] MEDS: POTASSIUM CHLORIDE 20 MEQ TAB 40 MEQ PO ×2 (10:19→17:30)
[2020-05-15] MEDS: ASPIRIN EC 81 MG TABLET PO (10:19)
[2020-05-15] MEDS: FUROSEMIDE 20 MG TABLET 40 MG PO (10:20)
[2020-05-15] MEDS: AMLODIPINE 5 MG TABLET PO (10:20)
[2020-05-15] MEDS: ENOXAPARIN 40 MG/0.4 ML SYRINGE SUBCUT (10:20)
[2020-05-15] MEDS: ACETAMINOPHEN 325 MG TABLET 650 MG PO (10:21)
[2020-05-15] MEDS: SODIUM CHLORIDE 0.9% FLUSH 10 ML IV ×2 (10:21→20:57)
--- NOTE | 2020-05-15 11:46 | OT.IP.EVAL ---
Current Diagnoses Cellulitis of left lower limb (05/12/20) Past Medical History (Last Reviewed 05/13/20 @ 00:37 by ARAMIS Contreras) Cellulitis of left leg (Acute) Congestive heart failure (Acute) Elevated troponin (Acute) Hypertension (Acute) Surgical History (Last Reviewed 05/13/20 @ 00:37 by ARAMIS Contreras) No pertinent past surgical history (Acute) Occupational Therapy Inpatient Evaluation/Re-Eval M1 PT/OT-IP Prior Functional Status Start: 05/13/20 11:24 Freq: NEEDED Status: Active Protocol: Document 05/15/20 14:05 CGR (Rec: 05/15/20 14:18 CGR [email or web address]) Medical Review Prior Functional Status Medical History Reviewed Yes Communication able to make needs known Mobility and Gait pt stated that he is modified independent with all mobilities and ambulation using SPC Activities of Daily Living and IADL's Pt states that he was IND for ADLs. He uses the [employer] shower for $1.25 when he has the money to do it. Social History Household Members other Living Arrangements Homeless Employment Status Unemployed Additional Social History Comment Pt has been living out of his car. He uses the [employer] bathrooms and shower when he is able to pay for a shower. M2 OT-IP Current Condition Start: 05/15/20 14:05 Freq: Status: Active Protocol: Document 05/15/20 14:05 CGR (Rec: 05/15/20 14:18 CGR [email or web address]) Occupational Therapy Current Condition Current Condition Evaluation Date 05/15/20 Treatment Diagnosis GLF, LLE cellulitis, CHF, encephalopathy, NH Diagnosis Onset Date 05/12/20 M3 OT- IP Subjective and Pain Start: 05/15/20 14:05 Freq: Status: Active Protocol: Document 05/15/20 14:05 CGR (Rec: 05/15/20 14:18 CGR [email or web address]) OT- Subjective Occupational Therapy Visit Type Type Initial Evaluation Visit Start Time 11:22 Visit Stop Time 11:46 Total Visit Minutes 24 OT Pain Assessment Pain When Pain Assessed During Mobility Pain Present Pain Present Denied Pain M4 OT- IP ADL's Start: 05/15/20 14:05 Freq: Status: Active Protocol: Document 05/15/20 14:05 CGR (Rec: 05/15/20 14:18 CGR [email or web address]) OT [id number] Comments OT Self-Feeding Comments not meal time OT ADL-Grooming Comments OT Grooming Comments Pt declined to perform OT ADL-Oral Care Comments Oral Care Comments Pt declined to perform OT ADL-Dressing General Eval Lower Body Dressing Ability Standby Assistance Areas Needing Assistance Underpants/Brief,Socks Comments OT Dressing Comments Pt donned and doffed socks seated in chair then donned clean brief seated on toielt. OT ADL-Toileting General Evaluation Toileting Ability Standby Assistance Devices Toileting Assistive Devices Grab Bars Comments OT Toileting Comments for standing urination then sat on toielt for donning clean brief OT ADL-Bathing Comments OT Bathing Comments not performed M5 OT- IP IADL's Start: 05/15/20 14:05 Freq: Status: Active Protocol: Document 05/15/20 14:05 CGR (Rec: 05/15/20 14:18 CGR [email or web address]) OT-Instrumental Activities of Daily Living Deficits IADL Deficits Identified No Deficits Home Safety Awareness Awareness of Need for Assistance at Home Good Awareness Ability to Problem Solve Emergency Able to Problem Solve Situations Medication Management Medication Management No Deficits Identified Money Management Money Management No Deficits Identified Meal Preparation Meal Preparation Comments Pt eats his meals out Sorting Machine Attendant Sorting Machine Attendant Comments Pt is homeless Driving Driving Comments 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 OT- Vision and Hearing OT- Hearing Assessment OT- Hearing Assessment WFL OT- Vision Assessment Visual Acuity Glasses All The Time Visual Attentiveness WFL Occular Pursuits WFL Visual Convergence WFL M7 OT- IP Mobility and Balance Start: 05/15/20 14:05 Freq: Status: Active Protocol: Document 05/15/20 14:05 CGR (Rec: 05/15/20 14:18 CGR [email or web address]) OT-Transfer Assessment Sit to and From Stand Sit to and from Stand Contact Guard Assistance Transfers Transfer Ability Contact Guard Assistance, Minimal Assistance Technique Transfer Destination Chair,Toilet Transfer Technique Stand Step Pivot Devices Transfer Assistive Devices Gait Belt,Straight Cane Comments Mobility Comments pt ambulated from chair to toilet and return with the SPC . Pt reaches or objects as he walks for additional support. OT- Gait Assessment Gait Gait Assistance Required: Independent Assistive Devices Assistive Device Gait Belt,Straight Cane Comments Gait Ability Comments mobility around the room OT- Balance Assessment Sitting Balance and Reactions Static Sitting Balance Ability Good Dynamic Sitting Balance Ability Fair M8 OT- IP Objective Assessments Start: 05/15/20 14:05 Freq: Status: Active Protocol: Document 05/15/20 14:05 CGR (Rec: 05/15/20 14:18 CGR [email or web address]) OT Gross Range of Motion Upper Extremity Range of Motion Assessment Within Functional Limits OT Strength Upper Extremity Strength Assessment Within Functional Limits Comments Strength Comments 4/5 throughout OT- Coordination Assessment Upper Extremity Finger to Nose Test Within Functional Limits Finger Tapping Test Within Functional Limits OT-Muscle Tone Assessment Muscle Tone WNL Yes OT Sensation Assessment Edema Edema Present Edema Comments to BLE M9 OT- IP Assessment and Plan Start: 05/15/20 14:05 Freq: Status: Active Protocol: Document 05/15/20 14:05 CGR (Rec: 05/15/20 14:18 CGR [email or web address]) OT Summary Assessment and Plan Potential Rehabilitation Potential Good Analytic Complexity at Evaluation Low Summary OT Impairments Strength,Balance,Functional Mobility,Grooming,Dressing, Toileting,Bathing,Toilet Transfers,Shower Transfers, Activity Tolerance Progress Towards Goals Progressing Toward Goals Assessment Summary Pt presents as a low complexity evaluation s/p admit after falling. Pt found to have CHF, LLE cellulitis and NH. Pt is progressing with therapy but would likely ambulate more safely with a walker than with his current SPC. Pt will continue to benefit from therapy services while hospitalized. Goals Grooming Goal Independent Dressing Goal Independent Toileting Goal Independent Bathing Goal Independent Toilet Transfer Goal Independent Shower Transfer Goal Independent Days to Meet Goals 10 Frequency of Treatment Frequency Of Treatment Once a Day Treatment Plan OT Treatment Plan ADL Training,Functional Mobility,Patient/Family Education,Discharge Planning Other Treatment Recommendations and Next shower Treatment Focus Discharge Recommendations OT Discharge Recommendations SNF Rehab Other Discharge Recommendations SNF is current recommendation but given pt's situation, pt is likley to discharge back to his car. Pt would benefit from walker for increased safety wtih mobility. Home Equipment Needs TBD Transportation Needs at Discharge Private Vehicle
--- NOTE | 2020-05-15 12:07 | PT.IPTN ---
Current Diagnoses Cellulitis of left lower limb (05/12/20) Physical Therapy Treatment Note M2 PT-IP Current Condition Start: 05/13/20 11:24 Freq: NEEDED Status: Active Protocol: Document 05/13/20 09:30 AB (Rec: 05/13/20 11:57 AB [id number]) Physical Therapy Current Condition Current Condition Evaluation Date 05/13/20 Treatment Diagnosis CHF; LLE cellulitis; difficulty in walking Onset Date 05/12/20 M3 PT-IP Subjective Start: 05/13/20 11:24 Freq: NEEDED Status: Active Protocol: Document 05/15/20 11:48 CLB (Rec: 05/15/20 12:42 CLB [id number]) Subjective Physical Therapy Visit Type Type Treatment Note Visit Start Time 11:48 Visit Stop Time 12:07 Total Visit Minutes 19 Number of PATIENT SERVICES SPECIALIST Visits 2 Physical Therapy Visit Comments Patient Comments pt is agreeable to do PT Therapy Pain Assessment Pain Present Pain Present Denied Pain M4 PT-IP Mobility and Gait Start: 05/13/20 11:24 Freq: NEEDED Status: Active Protocol: Document 05/15/20 11:48 CLB (Rec: 05/15/20 12:42 CLB [id number]) PT-Transfer Assessment Sit to and From Stand Sit to and from Stand Standby Assistance,Use of Upper Extremities Equipment Transfer Assistive Device Gait Belt,Front Wheeled Walker Orthotic/Prosthetic Devices or Brace: No Transfers Transfer Destination Chair Transfer Ability Level of Assist Standby Assistance Comments Mobility Comments Pt in chair upon arrival. Pt Stood from chair pushing off from arms of chair w/o the need for cuing. Pt used cane for gait ~25ft requiring CGA and reaching out for objects in room to improve stability. Pt then ambulated with FWW ~ 150ft starting out with CGA then pt able to ambulate SBA. Pt able to improve gait quality with heel strike and increase of step length but after some distance pt c/o left knee pain and began using step to gait pattern. Pt is steadier with FWW and pt is agreeable to use FWW. Pt returned to room reclined in chair with chair alarm on and all other needs within reach. Gait Assessment Gait Gait Assistance Required: Standby Assistance,Contact Guard Assist Distance (Feet) 175 Able to Maintain Weight Bearing Status Yes During Gait Assistive Devices Assistive Device Gait Belt,Front Wheeled Walker Orthotic/Prosthetic Devices or Brace: No Gait Deviations General Gait Pattern Antalgic,Decreased Stride Length,Decreased Feet Clearance,Lateral Trunk Lean, Step-to Gait,Wide Based Gait Factors Limiting Gait Function Factors Limiting Gait Function Decreased Activity Tolerance, Decreased Strength,Poor Balance,Poor Safety Awareness Comments Gait Comments see mobility comments. M5 PT-IP Objective Assessments Start: 05/13/20 11:24 Freq: NEEDED Status: Active Protocol: Document 05/13/20 09:30 AB (Rec: 05/13/20 11:57 AB [id number]) Orientation Orientation/Cognition Level of Alertness Alert Orientation Name,Place,Situation Safety Awareness Decreased Safety Awareness Memory Description Short Term Impaired Gross Range of Motion Lower Extremity ROM Assessment Within Functional Limits Strength Lower Extremity Strength Assessment Bilaterally Impaired Hip 4-/5 Knee RLE: 4-/5 LLE: 3+/5 Coordination Assessment Gross Coordination Gross Coordination WNL Muscle Tone Muscle Tone WNL Yes M6 PT-IP Treatment Start: 05/13/20 11:24 Freq: NEEDED Status: Active Protocol: Document 05/14/20 10:42 CLB (Rec: 05/14/20 11:23 CLB [id number]) Physical Therapy Treatment Exercises Exercises Ankle Pumps,Quad Sets Education Education Provided Safety M7 PT-IP Assessment and Plan Start: 05/13/20 11:24 Freq: NEEDED Status: Active Protocol: Document 05/15/20 11:48 CLB (Rec: 05/15/20 12:42 CLB [id number]) PT Summary Assessment and Plan Summary Impairments Pain,ROM,Strength,Balance, Coordination,Sensation, Cognition,Bed Mobility, Transfers,Gait,Activity Tolerance Assessment Summary Pt improving with safety and stability during gait requiring CGA-SBA with FWW. Pt able to ambulate ~150ft with FWW around [facility]. Goals Bed Mobility Goal Independent Transfer Goal Independent,Front Wheeled Walker Gait Goal Independent,Front Wheel Walker Gait Distance 200 Other Goals ambulation using SPC 250 ft SBA Days to Meet Goals 5 Frequency of Treatment Frequency Of Treatment Once a Day Treatment Plan Physical Therapy Treatment Plan Bed Mobility Training,Transfer Training,Gait Training, Therapeutic Exercise,Balance Retraining,Discharge Planning, Hot or Cold Pack,Neuromuscular Re-ed,Coordination Retraining Recommendations To Nursing Amount of Assist Needed 1 Person Assist Discharge Recommendations PT Discharge Recommendations Home Equipment Needed for Home Before FWW Discharge Transportation Needs at Discharge Private Vehicle,Wheelchair/ Cabulance
--- NOTE | 2020-05-15 14:11 | P.PN_ITS ---
Subjective Subjective Date Patient Seen: 05/15/20 Interval history: Rayo Estrada is a 69-year-old homeless gentleman with a past medical history significant for hypertension who presented after ground level fall with generalized weakness and left lower extremity erythema and swelling. The patient is resting in bed comfortably and in no acute distress. He endorses mild nausea but otherwise denies headache, cough, shortness of breath, chest pain, abdominal pain, vomiting, fever, chills, dysuria, diarrhea or constipation. He is voiding and eliminating without difficulty. He is up ambulating with assistance. Exam Vital Signs (past 8 hours): - 05/15/20 07:45 05/15/20 08:00 05/15/20 12:47 Temperature 98.0 F 98.2 F Pulse Rate 93 H 94 H Respiratory Rate 17 20 Blood Pressure 131/70 142/90 H Pulse Oximetry 95 92 95 Oxygen Delivery Method Room Air Oxygen Flow Rate 0 Narrative Exam Narrative: General: Older gentleman sitting in bedside chair and in no acute distress, appears older than stated age, well-developed, well-nourished, appropriately interactive. HEENT: Normocephalic, atraumatic. External ears without defect. Pupils equal, round, and reactive to light and accommodation. Anicteric sclerae, moist conjunctivae, and no lid lag. Oropharynx free of erythema and cobble stoning with moist mucosa. Neck: Supple with full range of motion. No jugular venous distension. No lym phadenopathy or thyromegaly. Cardiovascular: Regular rate and rhythm without murmurs, rubs, or gallops appreciated. Pulmonary: Clear to auscultation bilaterally without crackles, wheezes, or rhonchi. Normal respiratory effort with no use of accessory muscles. Abdomen: Soft, bowel sounds present, nontender, nondistended. No hepatosplenomegaly or masses appreciated. Extremities: No clubbing or cyanosis. Left lower extremity cellulitis resolving with mild circumferential erythema and edema from ankle to proximal pretibial area. Mild bilateral lower extremity pitting edema to pretibial area. Neurological: Cranial nerves grossly intact. Psychiatric: Poor insight. Normal mood and affect. Alert and oriented to person, place, and time. Probable mild cognitive impairment with short-term memory recall deficit. Objective Labs Result Diagrams: 05/15/20 08:07 05/16/20 05:10 Labs: Laboratory Results - last 24 hr 05/15/20 05/15/20 05/15/20 04:50 08:07 08:07 WBC 8.1 RBC 4.25 L Hgb 13.8 Hct 41.2 MCV 96.8 MCH 32.5 MCHC 33.5 RDW 13.1 Plt Count 201 Neut % (Auto) 79.1 H Lymph % (Auto) 12.1 L [place] % (Auto) 7.9 Eos % (Auto) 0.3 L Baso % (Auto) 0.6 Neut # (Auto) 6400 Lymph # (Auto) 1000 L [place] # (Auto) 600 Eos # (Auto) 0 Baso # (Auto) 100 Sodium 136 L Potassium 3.0 L Chloride 104 Carbon Dioxide 29 BUN 30 H Creatinine 0.85 Estimated GFR > 60.0 BUN/Creatinine Ratio 35.3 H Glucose 114 H Calcium 8.4 Magnesium 2.3 Procalcitonin 05/15/20 08:07 WBC RBC Hgb Hct MCV MCH MCHC RDW Plt Count Neut % (Auto) Lymph % (Auto) [place] % (Auto) Eos % (Auto) Baso % (Auto) Neut # (Auto) Lymph # (Auto) [place] # (Auto) Eos # (Auto) Baso # (Auto) Sodium Potassium Chloride Carbon Dioxide BUN Creatinine Estimated GFR BUN/Creatinine Ratio Glucose Calcium Magnesium Procalcitonin 1.16 H Assessment & Plan Assessment & Plan narrative: Rayo Estrada is a 69-year-old homeless gentleman with a past medical history significant for hypertension who presented after ground level fall with generalized weakness and left lower extremity erythema and swelling. 1. Acute left lower extremity cellulitis, present on admission. Resolving. -Patient presented after ground level fall with generalized weakness and left lower extremity erythema. -Continue conservative measures and elevate left lower extremity above level of the heart. -Initial WBC 18.9 and procalcitonin 2.27. Continue to trend WBC and procalcitonin daily. WBC normal and procalcitonin trending down to normal. -Continue cefazolin 2 g IV every 8 hours and plan to switch to oral Keflex 500 mg 3 times daily tomorrow. No evidence to suggest MRSA infection and discontinued vancomycin with dosing per pharmacist. 2. Acute exacerbation of heart failure with preserved left ventricular ejection fraction, present on admission resolving. -Echocardiogram demonstrated LV normal in size and function EF 55-60%, moderate asymmetric LVH, no echo evidence for significant left ventricular outflow tract obstruction, no systolic anterior motion of the mitral valve, RV is upper limits of normal in size and systolic function is normal, mild mitral regurgitation, IVC is dilated yet and collapses greater than 50% was in if suggest a right atrial pressure of 8 mmHg. Diastolic heart failure stage I. -Discontinued IV diuresis and switched to furosemide 40 mg daily due to rising creatinine and BUN. Patient was also started on lisinopril which was discontinued for unknown reasons. Consider ACEI/ARB and beta-tariq per PCP. -Continue strict I&O daily weights. Net -500 cc. -Continue to monitor electrolytes while diuresing and replete as necessary. 3. Type 2 CA, present on admission. Resolved. -Patient denies chest pain or ACS symptoms. -EKG demonstrated sinus rhythm without acute ischemic changes such as ST elevation or depression. -Echocardiogram without wall motion abnormalities. -Initial troponin 0.042 and trended down to normal at 0.028. No need to further trend. 4. Hypertension, chronic, present on admission. Stable. -Continue amlodipine and will plan to increase from 5 mg to 10 mg daily for better blood pressure control. 5. Ground level fall with generalized weakness, present on admission. Improving. -CT brain without contrast did not demonstrate any acute intracranial abnormalities. -Continue physical and occupational therapy evaluation and treatment. 6. Acute hypokalemia, not present on admission. Active. -Likely secondary to diuresis. Potassium level 3.0. Continue potassium chloride 40 mEq twice daily. Continue to monitor potassium level daily and adjust repletion as necessary 7. Acute metabolic encephalopathy, present on admission. Resolved. Code status: Full code VTE prophylaxis: Enoxaparin Disposition: Patient will likely discharge home tomorrow if infection continues to improve and mobilizing well.
[2020-05-15] MEDS: CALCIUM CARBONATE 500 MG TAB PO (14:48)
[2020-05-15 15:21] LABS: Hemoglobin A1C% w Est Avg Glu 5.1 % (4.0-6.0)
[2020-05-15 15:31] LABS: Procalcitonin 1.98 ng/mL (<0.5)
[2020-05-15 15:32] LABS: Procalcitonin 2.27 ng/mL (<0.5); Procalcitonin 2.72 ng/mL (<0.5)
--- NOTE | 2020-05-15 15:55 | CM.DPC ---
DCP continued: EMR reviewed: SPoke with [facility], [facility], [facility], [facility] and formerly [facility] SNFs today to check on possible SNF admissions. All of the facilities listed above denied acceptance of patient due to Homeless status. Franco/Rn spoke with Medicaid/ Home and community services about [email or web address] application and [employer] application. discussed patients situation and that he lives in his car. [facility] and community services has not assigned a case reviewer yet and will work on that today. However they did do an over the phone assessment today with patient and are currently still working with patient. They will continue to work with patient to provide possible resources and work on retirement placement plan for patient. FRANCO/Rn spoke with Dr. Hester and she plans on D/C patient tomorrow back to his car. FWW order was placed and should be dispensed at d/C for PT. Hawa Mena RN
[2020-05-15] MEDS: ONDANSETRON 4 MG/2 ML INJ IV (17:36)
[2020-05-15] MEDS: METOCLOPRAMIDE 10 MG/2 ML INJ IV (21:34)
[2020-05-16] VITALS: BP 133/82; PULSE 100; RESP 18; TEMP 36.6; O2SAT 93
[2020-05-16 03:56] VITALS: BP 135/90; PULSE 90; RESP 18; TEMP 36.4; O2SAT 96
[2020-05-16] MEDS: CEFAZOLIN 2 GM/100 ML FROZ.PIGGY IV (03:58)
[2020-05-16 05:46] LABS: BUN Creatinine Ratio 32.5 (6-22); Blood Urea Nitrogen 27 mg/dL (9-20); Calcium 8.9 mg/dL (8.4-10.2); Carbon Dioxide 31 mmol/L (22-32); Chloride 103 mmol/L (98-107); Estimated Glomerular Filt Rate > 60.0 mL/min (>60); Glucose 111 mg/dL (80-110); HEMOLYSIS < 15 (0-50); Magnesium 2.4 mg/dL (1.6-2.3); Potassium 3.5 mmol/L (3.4-5.1); Sodium 138 mmol/L (137-145)
[2020-05-16 07:17] VITALS: BP 147/91; PULSE 86; RESP 16; TEMP 36.7; O2SAT 94
[2020-05-16 07:29] VITALS: O2SAT 97
[2020-05-16] MEDS: SODIUM CHLORIDE 0.9% FLUSH 10 ML IV (08:43)
[2020-05-16] MEDS: polyethylene glycoL 3350 17 GM POWD.PACK PO (08:49)
[2020-05-16] MEDS: SENNOSIDES 8.6 MG TABLET 17.2 MG PO (08:49)
[2020-05-16] MEDS: AMLODIPINE 5 MG TABLET PO (08:49)
[2020-05-16] MEDS: POTASSIUM CHLORIDE 20 MEQ TAB 40 MEQ PO (08:49)
[2020-05-16] MEDS: FUROSEMIDE 20 MG TABLET 40 MG PO (08:49)
[2020-05-16] MEDS: ASPIRIN EC 81 MG TABLET PO (08:50)
[2020-05-16] MEDS: ENOXAPARIN 40 MG/0.4 ML SYRINGE SUBCUT (08:50)
--- NOTE | 2020-05-16 09:37 | OT.IP.TRT ---
Current Diagnoses Cellulitis of left lower limb (05/12/20) Occupational Therapy Treatment Note M2 OT-IP Current Condition Start: 05/15/20 14:05 Freq: Status: Active Protocol: Document 05/15/20 14:05 CGR (Rec: 05/15/20 14:18 CGR [id number]) Occupational Therapy Current Condition Current Condition Evaluation Date 05/15/20 Treatment Diagnosis GLF, LLE cellulitis, CHF, encephalopathy, TN Diagnosis Onset Date 05/12/20 M3 OT- IP Subjective and Pain Start: 05/15/20 14:05 Freq: Status: Active Protocol: Document 05/16/20 09:53 [facility] (Rec: 05/16/20 10:01 [facility] [id number]) OT- Subjective Occupational Therapy Visit Type Type Treatment Note Visit Start Time 09:18 Visit Stop Time 09:37 Total Visit Minutes 19 Occupational Therapy Visit Comments Patient Comments Pt agreed to sponge off. OT Pain Assessment Pain When Pain Assessed During Mobility Pain Present Pain Present Denied Pain M4 OT- IP ADL's Start: 05/15/20 14:05 Freq: Status: Active Protocol: Document 05/16/20 09:53 [facility] (Rec: 05/16/20 10:01 [facility] [id number]) OT [id number] Comments OT Self-Feeding Comments not meal time OT ADL-Grooming Comments OT Grooming Comments Pt declined to perform OT ADL-Oral Care Comments Oral Care Comments Pt declined to perform OT ADL-Dressing General Eval Lower Body Dressing Ability Standby Assistance Areas Needing Assistance Underpants/Brief,Socks Comments OT Dressing Comments Educated to alice his left leg first as more difficulty to move than his right foot. OT ADL-Bathing Bathing Type Bathing Type Sponge Bath General Evaluation Bathing Ability Minimal Assistance Areas Needing Assistance Wash/Dry Back Comments OT Bathing Comments Pt able to most of sponge bath while seated and able to stand with FWW for pericare needs. Pt mainly just needing assist to wash his back. M5 OT- IP IADL's Start: 05/15/20 14:05 Freq: Status: Active Protocol: Document 05/15/20 14:05 CGR (Rec: 05/15/20 14:18 [facility] [id number]) OT-Instrumental Activities of Daily Living Deficits IADL Deficits Identified No Deficits Home Safety Awareness Awareness of Need for Assistance at Home Good Awareness Ability to Problem Solve Emergency Able to Problem Solve Situations Medication Management Medication Management No Deficits Identified Money Management Money Management No Deficits Identified Meal Preparation Meal Preparation Comments Pt eats his meals out Boot Maker Boot Maker Comments Pt is homeless Driving Driving Comments 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 M6 OT- IP Functional Cognition Start: 05/15/20 14:05 Freq: Status: Active Protocol: Document 05/16/20 09:53 [facility] (Rec: 05/16/20 10:01 [facility] [id number]) Cognitive Factors Limiting Selfcare Function Cognitive Comments Cognitive Assessment Comments Pt appears to be at baseline. M7 OT- IP Mobility and Balance Start: 05/15/20 14:05 Freq: Status: Active Protocol: Document 05/16/20 09:53 [facility] (Rec: 05/16/20 10:01 [facility] [id number]) OT- Bed Mobility Assessment Rolling Type of Rolling Roll to Left Level of Assistance Independent Supine to Sit Supine to Sit Assist Independent Scooting Scooting to Edge of Bed Independent OT-Transfer Assessment Sit to and From Stand Sit to and from Stand Independent Comments Mobility Comments Pt is independent with bed mobility and able to stand with FWW on his own. M8 OT- IP Objective Assessments Start: 05/15/20 14:05 Freq: Status: Active Protocol: Document 05/15/20 14:05 [facility] (Rec: 05/15/20 14:18 C[facility] [email or web address]) OT Gross Range of Motion Upper Extremity Range of Motion Assessment Within Functional Limits OT Strength Upper Extremity Strength Assessment Within Functional Limits Comments Strength Comments 4/5 throughout OT- Coordination Assessment Upper Extremity Finger to Nose Test Within Functional Limits Finger Tapping Test Within Functional Limits OT-Muscle Tone Assessment Muscle Tone WNL Yes OT Sensation Assessment Edema Edema Present Edema Comments to BLE M9 OT- IP Assessment and Plan Start: 05/15/20 14:05 Freq: Status: Active Protocol: Document 05/16/20 09:53 [facility] (Rec: 05/16/20 10:01 [facility] [id number]) OT Summary Assessment and Plan Potential Rehabilitation Potential Good Analytic Complexity at Evaluation Low Summary OT Impairments Balance,Functional Mobility, Bathing,Shower Transfers, Activity Tolerance Progress Towards Goals Progressing Toward Goals Assessment Summary Pt able to tolerate sponge bathing today and main barrier decreased dynamic balance and activity tolerance. Pt safer to use FWW for mobility needs. Pt trying to look into going to a friend's house after discharge versus back to his car. Goals Bathing Goal Independent Shower Transfer Goal Independent Days to Meet Goals 2 Frequency of Treatment Frequency Of Treatment Once a Day Treatment Plan OT Treatment Plan Patient/Family Education, Discharge Planning Discharge Recommendations OT Discharge Recommendations Home with Assistance,SNF Rehab Transportation Needs at Discharge Private Vehicle
--- NOTE | 2020-05-16 11:00 | CM.DPC ---
DCP continued: Reviewed chart. Per CM team notes, Medicaid application completed and faxed to [facility] on patient's behalf. In addition, provider/Dr. Hester reports patient is medically stable to d/c from [facility]. FWW dispatched to patient by therapy. APRON OPERATOR met briefly with patient explained role. Patient aware and agreeable to discharge today. Patient reports that he is trying to reach friends for a ride. Patient is planning on 1:00pm sisal picker at ED entrance. RN notified. Patient to be provided with copy of Medicaid application and encouraged to either follow up himself or have friend help him. Patient in agreement. P: Patient discharging from [facility] today. Patient applied for both Medicaid and expedited [id number] if Medicaid approved. JACK Sevilla
--- NOTE | 2020-05-16 11:15 | PT.IPTN ---
Current Diagnoses Cellulitis of left lower limb (05/12/20) Physical Therapy Treatment Note M2 PT-IP Current Condition Start: 05/13/20 11:24 Freq: NEEDED Status: Active Protocol: Document 05/13/20 09:30 AB (Rec: 05/13/20 11:57 AB [id number]) Physical Therapy Current Condition Current Condition Evaluation Date 05/13/20 Treatment Diagnosis CHF; LLE cellulitis; difficulty in walking Onset Date 05/12/20 M3 PT-IP Subjective Start: 05/13/20 11:24 Freq: NEEDED Status: Active Protocol: Document 05/16/20 10:56 [facility] (Rec: 05/16/20 11:49 [facility] [id number]) Subjective Physical Therapy Visit Type Type Treatment Note Visit Start Time 10:56 Visit Stop Time 11:15 Total Visit Minutes 19 Number of PASSENGER VESSEL CHEF Visits 3 Physical Therapy Visit Comments Patient Comments pt is agreeable to do PT Therapy Pain Assessment Pain Present Pain Present Denied Pain M4 PT-IP Mobility and Gait Start: 05/13/20 11:24 Freq: NEEDED Status: Active Protocol: Document 05/16/20 10:56 [facility] (Rec: 05/16/20 11:49 [facility] [id number]) PT-Bed Mobility Assessment Supine to Sit Supine to Sit Independent,Standby Assistance Sit to Supine Sit to Supine Independent Scooting Scooting Up and Down in Bed Independent PT-Transfer Assessment Sit to and From Stand Sit to and from Stand Standby Assistance,Use of Upper Extremities Equipment Transfer Assistive Device Gait Belt,Front Wheeled Walker Orthotic/Prosthetic Devices or Brace: No Transfers Transfer Destination Chair Transfer Ability Level of Assist Standby Assistance Comments Mobility Comments Pt in bed upon arrival, pt able to get to EOB SBA, pt stood pushing off from bed with bilateral UE's. Pt ambulated ~25ft then stated he needed to use the BR, pt returned to room to urinate stating he has had to go a lot today. Pt then completed ~ 150ft of ambulation w/FWW/SBA, pt ambulates with step through gait pattern with good step length until end of gait pt fatigues and steps length decreased as well as foot clearance. Pt is steady and has good walker management. Pt returned to room and performed sit-supine SBA. Pt left in bed with call light and all other needs. FWW issued to pt. Gait Assessment Gait Gait Assistance Required: Standby Assistance Distance (Feet) 200 Able to Maintain Weight Bearing Status Yes During Gait Assistive Devices Assistive Device Gait Belt,Front Wheeled Walker Orthotic/Prosthetic Devices or Brace: No Gait Deviations General Gait Pattern Antalgic,Decreased Stride Length,Decreased Feet Clearance,Lateral Trunk Lean, Step-to Gait,Wide Based Gait Factors Limiting Gait Function Factors Limiting Gait Function Decreased Activity Tolerance, Decreased Strength,Poor Balance,Poor Safety Awareness Comments Gait Comments see mobility comments. M5 PT-IP Objective Assessments Start: 05/13/20 11:24 Freq: NEEDED Status: Active Protocol: Document 05/13/20 09:30 AB (Rec: 05/13/20 11:57 AB [id number]) Orientation Orientation/Cognition Level of Alertness Alert Orientation Name,Place,Situation Safety Awareness Decreased Safety Awareness Memory Description Short Term Impaired Gross Range of Motion Lower Extremity ROM Assessment Within Functional Limits Strength Lower Extremity Strength Assessment Bilaterally Impaired Hip 4-/5 Knee RLE: 4-/5 LLE: 3+/5 Coordination Assessment Gross Coordination Gross Coordination WNL Muscle Tone Muscle Tone WNL Yes M6 PT-IP Treatment Start: 05/13/20 11:24 Freq: NEEDED Status: Active Protocol: Document 05/14/20 10:42 [facility] (Rec: 05/14/20 11:23 [facility] [id number]) Physical Therapy Treatment Exercises Exercises Ankle Pumps,Quad Sets Education Education Provided Safety M7 PT-IP Assessment and Plan Start: 05/13/20 11:24 Freq: NEEDED Status: Active Protocol: Document 05/16/20 10:56 [facility] (Rec: 05/16/20 11:49 CLB [id number]) PT Summary Assessment and Plan Summary Impairments Pain,ROM,Strength,Balance, Coordination,Sensation, Cognition,Bed Mobility, Transfers,Gait,Activity Tolerance Assessment Summary Pt is Ind-SBA for bed mobility and SBA for sit<>stand and gait. Pt improving with walker management and FWW issued to pt for improved stability with gait. Goals Bed Mobility Goal Independent Transfer Goal Independent,Front Wheeled Walker Gait Goal Independent,Front Wheel Walker Gait Distance 200 Other Goals ambulation using SPC 250 ft SBA Days to Meet Goals 5 Frequency of Treatment Frequency Of Treatment Once a Day Treatment Plan Physical Therapy Treatment Plan Bed Mobility Training,Transfer Training,Gait Training, Therapeutic Exercise,Balance Retraining,Discharge Planning, Hot or Cold Pack,Neuromuscular Re-ed,Coordination Retraining Recommendations To Nursing Amount of Assist Needed 1 Person Assist Discharge Recommendations PT Discharge Recommendations Home Equipment Needed for Home Before FWW Discharge Transportation Needs at Discharge Private Vehicle
--- NOTE | 2020-05-16 13:19 | P.DS_ITS ---
History of Present Illness History of Present Illness Date Patient Seen: 05/12/20 Chief complaint: GLF, on floor since Midnight. Increased weakness Narrative: Written by Daniela SELF: Unable to obtain much of a history from the patient as he is very lethargic and keeps falling asleep mid sentence. Report provided by the ED indicated that he fell out of bed sometime last night. He stated the floor and when he woke up this morning he realized he had fallen and called the ?aid car?. When asked if he has a physician or a primary care provider he says that he does but he is unable to tell me the name or where here she is located. From what I understand from nursing he lives in the hotel [place] town the patient was able to tell me that he was from [facility] and previously worked at a [employer]. He states that he knows his parents quite well and knows a lot about their medical history but is unable to give me any information as he is then fallen asleep. Chest xray done in the ED indicated Cardiomegaly and pulmonary vascular congestion. Cannot rule out underlying bilateral perihilar patchy infiltrates. No pleural effusion or pneumothorax.Patient was administered a 1 time dose of vancomycin in the ED. Patient is febrile at T-max 101.8, currently 100.8, blood pressure 165/80, heart rate 60, respiratory rate 20, oxygen saturation of 100% on room air, he weighs 111.8 kg with a BMI of 33.7. He has an elevated WBC at 18.9, RBC 4.87, hemoglobin 16.1, hematocrit 47.8, platelet count 179, sodium 137, potassium 3.7, chloride 102, CO2 31, BUN 21, creatinine 0.86, GFR is greater than 60, lactate 1.5, calcium 9.5, magnesium 2.1, liver enzymes are within normal limits, total CK 1100, CK-MB is 4.32, troponin was elevated at 0.040 and coming down, proBNP was 4850. Discharge Providers Provider Date of admission: 05/12/20 14:50 Discharge Date: 05/16/20 Consults: 05/12/20 21:42 Consult to Physical Therapy Evaluate & Treat Comment: Weakness, normally uses a walker Physician Instructions: Evaluate and Treat 05/14/20 13:08 Consult to Occupational Therapy Evaluate & Treat Comment: Physician Instructions: Evaluate and treat 05/15/20 15:52 Consult to Home Health Routine Comment: Reason For Exam: FWW for home use per PT Discharge provider: Francisca Hester DO Summary Hospital Course Hospital Course: Rayo Estrada is a 69-year-old homeless gentleman with a past medical history significant for hypertension who presented after ground level fall with generalized weakness and left lower extremity erythema and swelling. 1. Acute left lower extremity cellulitis, present on admission. Resolving. -Patient presented after ground level fall with generalized weakness and left lower extremity erythema. -Continued conservative measures and elevated left lower extremity above level of the heart. -Initial WBC 18.9 and procalcitonin 2.27. Continue to trend WBC and procalcitonin daily. WBC and procalcitonin normalized. -Continued cefazolin 2 g IV every 8 hours and switched to oral Keflex 500 mg 3 times x 6 days to complete 10 days total of antibiotic therapy. No evidence to suggest MRSA infection and discontinued vancomycin with dosing per pharmacist. 2. Acute exacerbation of heart failure with preserved left ventricular ejection fraction, present on admission resolving. -Echocardiogram demonstrated LV normal in size and function EF 55-60%, moderate asymmetric LVH, no echo evidence for significant left ventricular outflow tract obstruction, no systolic anterior motion of the mitral valve, RV is upper limits of normal in size and systolic function is normal, mild mitral regurgitation, IVC is dilated yet and collapses greater than 50% was in if suggest a right atrial pressure of 8 mmHg. Diastolic heart failure stage I. -Discontinued IV and PO diuresis as patient appears euvolemic. Did not discharged on furosemide as patient is high risk of dehydration and acute kidney injury due to his disposition and being homeless with potentially lack there of follow-up. Patient received lisinopril during hospitalization but then discontinued for unclear reasons. Consider ACEI/ARB and beta-tariq per PCP when patient is able to follow-up. -Continued strict I&O daily weights. Net -1.1 L. -Continued to monitor electrolytes while diuresing and replete as necessary. 3. Type 2 HI, present on admission. Resolved. -Patient denied chest pain or ACS symptoms. -EKG demonstrated sinus rhythm without acute ischemic changes such as ST elevation or depression. -Echocardiogram without wall motion abnormalities. -Initial troponin 0.042 and trended down to normal at 0.028. No need to further trend. 4. Hypertension, chronic, present on admission. Stable. -Started and continued amlodipine 10 mg daily. Consider ACEI/ARB and beta- tariq per PCP when patient is able to follow-up. 5. Ground level fall with generalized weakness, present on admission. Improving. -CT brain without contrast did not demonstrate any acute intracranial abnormalities. -Continue physical and occupational therapy evaluation and treatment. 6. Acute hypokalemia, not present on admission. Resolved. -Likely secondary to diuresis. Continue to monitor potassium level and replete as necessary while diuresing. Potassium level now normal at 3.5 with no plans for further diuresis. 7. Acute metabolic encephalopathy, present on admission. Resolved. 8. Homeless. -Consulted ELECTRICAL LOGGING ENGINEER who range for АЛЕКСАНДР and possible termite exterminator placement in near future. Exam Vital Signs (past 8 hours): - 05/16/20 07:17 05/16/20 07:29 Temperature 98.1 F Pulse Rate 86 Respiratory Rate 16 Blood Pressure 147/91 H Pulse Oximetry 94 97 Oxygen Delivery Method Room Air Oxygen Flow Rate 0 Narrative Exam Narrative: General: Older gentleman sitting in bedside chair and in no acute distress, appears older than stated age, well-developed, well-nourished, appropriately interactive. HEENT: Normocephalic, atraumatic. External ears without defect. Pupils equal, round, and reactive to light. Anicteric sclerae, moist conjunctivae, and no lid lag. Oropharynx free of erythema and cobble stoning with moist mucosa. Poor dentition. Neck: Supple with full range of motion. No jugular venous distension. No lymphadenopathy or thyromegaly. Cardiovascular: Regular rate and rhythm without murmurs, rubs, or gallops appreciated. Pulmonary: Clear to auscultation bilaterally without crackles, wheezes, or rhonchi. Normal respiratory effort with no use of accessory muscles. Abdomen: Soft, bowel sounds present, nontender, nondistended. No hepatosplenomegaly or masses appreciated. Extremities: No clubbing or cyanosis. Left lower extremity cellulitis resolving with mild circumferential erythema and edema from ankle to proximal pretibial area. Trace bipedal edema. Neurological: Cranial nerves grossly intact. Psychiatric: Poor insight. Normal mood and affect. Alert and oriented to person, place, and time. Probable mild cognitive impairment with short-term memory recall deficit. Objective Labs Result Diagrams: 05/15/20 08:07 05/16/20 05:10 Labs: Laboratory Results - last 24 hr 05/15/20 05/15/20 05/15/20 04:50 04:50 04:50 Sodium Potassium Chloride Carbon Dioxide BUN Creatinine Estimated GFR BUN/Creatinine Ratio Glucose Hemoglobin A1c 5.1 Calcium Magnesium Procalcitonin 2.72 H 2.27 H 05/15/20 05/16/20 05/16/20 14:10 05:00 05:10 Sodium 138 Potassium 3.5 Chloride 103 Carbon Dioxide 31 BUN 27 H Creatinine 0.83 Estimated GFR > 60.0 BUN/Creatinine Ratio 32.5 H Glucose 111 H Hemoglobin A1c Calcium 8.9 Magnesium 2.4 H Procalcitonin 1.98 H 0.50 Discharge Plan Discharge Plan Patient Disposition: Home Discharge comment: You are being discharged home. You had cellulitis or a skin infection of the left lower extremity and have been prescribed Keflex 500 mg 3 times daily for 6 additional days to complete 10 day total course of antibiotics. Please keep your left leg clean and dry (pat leg dry after bathing). Please try to elevate your lower extremities frequently above the level of your heart while you are not up on your feet. You have mild heart failure. You have been diuresed and you may need to be on a diuretic regularly in the future but prefer not to start a diuretic currently due to your disposition and being homeless without close follow-up and concern for dehydration and/or kidney injury. Plan to continue conservative measures to keep fluid off including low-sodium, fluid-restricted diet (including all fluid) of 1-1.5 L daily and elevating your legs. Your blood pressure has been elevated and you been started on amlodipine 10 mg daily. Discharge orders & Medications Prescriptions: New amlodipine 10 mg tablet 10 mg PO DAILY Qty: 30 RF: 0 cephalexin 250 mg Capsule 500 mg PO TID Qty: 18 RF: 0 Diet/Activity/Treatments Diet: Low-fat, Low-sodium and Low-cholesterol Activity: Activity as tolerated with walker Visit Report/Discharge Packet Instructions: DI for Cellulitis -- Adult, The DASH Diet, Heart Failure, Essent ial Hypertension, DI for Heart Failure, How To Perform RICE (Rest, Ice, Compress, Elevate), Fluid Restricted Diet, Low-Sodium Diet, Amlodipine, Cephalexin (By mouth) Visit Report Forms: Patient Portal/API, Stroke Signs & Symptoms Discharges patient from system. Discharge Date/Time: 05/16/20 13:53
--- NOTE | 2020-05-16 13:50 | PC.NURSE ---
Day shift: Pt left unit in WC w/ this manual writer. His friend is picking hime up. Paperwork signed and all questions answered. Pt has all personal belonigs. MD appointment made by Bethany BARNES for [facility] a week from today at 1300. Told Nain that it was very important to go see the doctor and he agreed. MD scripts given to Pt and Pt told they are very important to take and take as directed.
--- NOTE | 2020-05-18 11:28 | CM.DPC ---
DCP cont: Faxed discharge summary to [facility], Attn: Aracelis Arredondo, Transitions of Care, RN at fax # [phone] as requested via voicemail. Fax confirmation scanned in. Daniela Cortes, Care Steam Shovel Operator
== END 2020-05-16 13:53 | disposition home or self-care (01) | DRG 602 ==
LOC: ED 12:37 → AC 14:50
PROVIDERS: Internal Medicine; Nurse Practitioner Family; Admitting Provider Internal Medicine; Emergency Provider Emergency Medicine; Referring Provider Emergency Medicine; Visit Provider Internal Medicine
DX: L03.116 Cellulitis of left lower limb (principal); G93.41 Metabolic encephalopathy; I50.31 Acute diastolic (congestive) heart failure; I21.A1 Myocardial infarction type 2; I11.0 Hypertensive heart disease with heart failure; E87.6 Hypokalemia; T50.1X5A Adverse effect of loop [high-ceiling] diuretics, initial encounter; F17.210 Nicotine dependence, cigarettes, uncomplicated; W06.XXXA Fall from bed, initial encounter; Z59.0 Homelessness
CPT/HCPCS: 36415; 70450; 71045; 80048; 80053; 80061; 80305; 80320; 81001; 82550; 82553; 83036; 83605; 83690; 83735; 83880; 84145; 84484; 85025; 85610; 85730; 87040; 87635; 93005; 93306; 96365; 96366; 97116; 97162; 97165; 97535; 99284; 99291; J0360; J0690; J1650; J1940; J2405; J2765

== ENCOUNTER 2020-06-07 11:13 | Emergency (ER) | payer OTHER, SELFPAY ==
[2020-05-16 13:43] VITALS: BMI 33.7
[2020-06-07 11:22] VITALS: BP 164/90; PULSE 66; RESP 20; TEMP 36.7; O2SAT 94; BMI 33.9
--- NOTE | 2020-06-07 11:30 | DI.RAD.S_ITS ---
PROCEDURE: XR CHEST 1V INDICATIONS: sob TECHNIQUE: One view of the chest was acquired. COMPARISON: [facility], CR, XR CHEST 1V, 05/12/2020, 10:56. FINDINGS: Surgical changes and devices: None. Lungs and pleura: Pulmonary vascular congestion is seen. No definite focal infiltrate. No pleural effusions or pneumothorax. Mediastinum: There is mildly tortuous thoracic aorta. Heart size is enlarged.. Bones and chest wall: No suspicious bony lesions. Overlying soft tissues appear unremarkable. IMPRESSION: Mild congestive changes. No focal infiltrate, pleural effusion or pneumothorax. Dictated by: Patrick Dickinson M.D. on 06/07/2020 at 12:18 Approved by: Patrick Dickinson M.D. on 06/07/2020 at 12:23
--- NOTE | 2020-06-07 11:32 | ED_ITS ---
HPI - Extremity Problem General Chief complaint: Extremity Problem,Nontraumatic Stated complaint: Both lower leg swelling x30 days Time Seen by Provider: 06/07/20 11:21 Source: patient Mode of arrival: Wheelchair Limitations: no limitations History of Present Illness HPI Narrative: Patient is a 69-year-old male who presents with lower extremity swelling. He was actually admitted here for cellulitis and CHF exacerbation 05/12/2020. With a 30 day supply of amlodipine and Keflex. He says he has not taken medicine in about 3 weeks he was only given a week's worth of medication, he has had a gradual increase of swelling in his legs. He denies any fever no chest pain no shortness of breath. He does have a wound on his right leg but no surrounding erythema. He has no difficulty walking. He until last night has been homeless. He has been sleeping in his car and has been sleeping in an inclined position. He has not had any orthopnea, but he says sleeping in that position has not been good for the swelling in his legs. He now has a place to stay. MD Complaint: extremity swelling Relieving factors: nothing Exacerbating factors: nothing Related Data Previous Rx's Medication Instructions Recorded amlodipine 10 mg PO DAILY #30 tab 05/16/20 cephalexin 500 mg PO TID #18 cap 05/16/20 hydrochlorothiazide 25 mg PO DAILY #14 tab 06/07/20 Allergies Allergy/AdvReac Type Severity Reaction Status Date / Time No Known Drug Allergies Allergy Verified 05/12/20 10:17 Review of Systems Review of Systems ROS Unobtainable: All systems reviewed & are unremarkable except as noted in HPI and below Constitutional Constitutional: Denies chills, Denies fever(s), Denies lethargy and Denies weakness ENT Ears, Nose, Mouth, and Throat: Denies vertigo and Denies dizziness Cardiovascular Cardiovascular: Denies chest pain, Reports pedal edema, Denies irregular heart rhythm, Denies lightheadedness, Denies palpitations, Denies dyspnea, Denies dyspnea on exertion and Denies orthopnea Respiratory Respiratory: Denies cough, Denies dyspnea, Denies dyspnea on exertion and Denies wheezing Gastrointestinal Gastrointestinal: Denies abdominal pain, Denies change in bowel habits, Denies diarrhea, Denies nausea and Denies vomiting Integumentary/Breasts Skin/Breast: Denies pruritus, Denies erythema, Denies rash and Denies wounds Neurologic Neurologic: Denies vertigo, Denies dizziness and Denies weakness Endocrine Endocrine: Denies palpitations Allergic/Immunologic Allergic/Immunologic: Denies wheezing Patient History Medical History Cellulitis of left leg (Acute) Congestive heart failure (Acute) Elevated troponin (Acute) Hypertension (Acute) Surgical History No pertinent past surgical history (Acute) Social History household members: other housing: other occupational status: unemployed Smoking Status: Current every day smoker alcohol intake: current additional social history: Lives in a hotel Smoking Status: Current every day smoker alcohol intake frequency: a few times a week Substance Use Type: does not use Exam Initial Vital Signs Initial Vital Signs: Vital Signs Temperature 98.0 F 06/07/20 11:22 Pulse Rate 66 06/07/20 11:22 Respiratory Rate 20 06/07/20 11:22 Blood Pressure 164/90 H 06/07/20 11:22 Pulse Oximetry 94 06/07/20 11:22 GENERAL: Alert male and in [no acute] distress. HEENT: Head atraumatic,EOMI, pupils reactive, face symmetric, [moist] mucous membranes CARDIOVASCULAR: Regular rate and rhythm without murmurs, rubs or gallops. RESPIRATORY: Breath sounds equal bilaterally, no wheezes rales or rhonchi. ABDOMEN: Soft, nontender. Normoactive bowel sounds all 4 quadrants. No guarding or rebound. EXTREMITIES: Normal range of motion, no clubbing +3 pitting edema. Neurovascularly intact NEUROLOGICAL: Alert and oriented x4.Normal gait and speech. Cranial nerves II through XII grossly intact. SKIN: Minimal erythema open wounds right leg. Scores ABCD2 Citation: Lancet. 2006Oct 25;369(3748):824-23. Validation and refinement of scores to predict very early stroke risk after transient ischaemic attack. Amado SC1, Ceasar PM, Tiera MN, Jasson MF, Tawanda JS, Radha AL, Isaiah S. Course Orders Ordered: ED Orders 06/07/20 11:25 Complete Blood Count AUTO DIFF Stat Comprehensive Metabolic Panel Stat Magnesium Stat NT-proBNP (BNP-Adult 18+) Stat Partial Thromboplastin Time Stat Procalcitonin Stat Prothrombin Time INR Stat Troponin & CK Cardiac Panel Stat 06/07/20 11:29 Consult to Respiratory Therapy Evaluate & Treat EKG-12 Lead Stat 06/07/20 11:30 XR chest 1V Stat 06/07/20 12:01 Consult to [facility] [employer] Stat 06/07/20 12:15 Urine Culture Stat Urine Microscopic Stat Discontinued Medications Furosemide (Lasix) 20 mg IV NOW ONE Stop: 06/07/20 12:46 Last Admin: 06/07/20 13:02 Dose: 20 mg Documented by: EUNICE Vital Signs Vital signs: Vital Signs - 8 hr 06/07/20 11:22 06/07/20 12:56 06/07/20 13:00 Temperature 98.0 F Pulse Rate 66 50 L 49 L Respiratory Rate 20 Blood Pressure 164/90 H Pulse Oximetry 94 99 98 06/07/20 13:01 Temperature Pulse Rate 49 L Respiratory Rate Blood Pressure 169/85 H Pulse Oximetry 99 MDM - Extremity (Nontraumatic) Lab Data Result diagrams: 06/07/20 11:25 06/07/20 11:25 Labs: Lab Results 06/07/20 06/07/20 06/07/20 Range/Units 11:25 11:25 11:25 WBC 6.6 (4.5-11.0) X10^3/uL RBC 4.51 (4.5-5.9) X10^6/uL Hgb 14.8 (13.5-17.5) g/dL Hct 43.1 (41-53) % MCV 95.5 (80-100) fL MCH 32.8 (26-34) PG MCHC 34.4 (30-36) % RDW 13.2 (11.6-14.8) % Plt Count 253 (150-400) X10^3/uL Neut % (Auto) 68.4 (50-75) % Lymph % (Auto) 18.6 L (25-40) % [place] % (Auto) 9.0 (3-14) % Eos % (Auto) 3.3 (2-4) % Baso % (Auto) 0.7 (0-2) % Neut # (Auto) 4500 (2561-4909) /uL Lymph # (Auto) 1200 (3117-4966) /uL [place] # (Auto) 600 (0-900) /uL Eos # (Auto) 200 (0-450) /uL Baso # (Auto) 0 (0-100) /uL PT 11.6 (10.1-12.7) SECONDS INR 1.0 (0.9-1.3) APTT 29 D (26.4-36.2) SECONDS Sodium 136 L (137-145) mmol/L Potassium 3.9 (3.4-5.1) mmol/L Chloride 106 (98-107) mmol/L Carbon Dioxide 26 (22-32) mmol/L BUN 17 (9-20) mg/dL Creatinine 0.76 (0.66-1.25) mg/dL Estimated GFR > 60.0 (>60) mL/min BUN/Creatinine Ratio 22.4 H (6-22) Glucose 99 (80-110) mg/dL Calcium 9.2 (8.4-10.2) mg/dL Magnesium 2.2 (1.6-2.3) mg/dL Total Bilirubin 0.7 (0.2-1.3) mg/dL AST 24 (17-59) IU/L ALT 11 (<50) IU/L Alkaline Phosphatase 107 (38-126) U/L Total Creatine Kinase 52 L (55-170) U/L CK-MB (CK-2) TNP CK-MB (CK-2) Rel Index TNP Troponin I 0.015 (0.01-0.034) ng/mL NT-Pro-B Natriuret Pep 1300 H (<125) pg/mL Total Protein 6.7 (6.3-8.2) g/dL Albumin 3.7 (3.5-5.0) g/dL Globulin 3.0 (1.7-4.1) g/dL Albumin/Globulin Ratio 1.2 (1.0-2.8) Procalcitonin (<0.5) ng/mL Urine RBC (0-5/HPF) Urine WBC (0-5/HPF) Ur Squamous Epith Cells (0-5/HPF) Urine Bacteria (None) Hyaline Casts (None) Urine Mucus (Negative) Ur Culture Indicated? 06/07/20 06/07/20 Range/Units 11:25 12:15 WBC (4.5-11.0) X10^3/uL RBC (4.5-5.9) X10^6/uL Hgb (13.5-17.5) g/dL Hct (41-53) % MCV (80-100) fL MCH (26-34) PG MCHC (30-36) % RDW (11.6-14.8) % Plt Count (150-400) X10^3/uL Neut % (Auto) (50-75) % Lymph % (Auto) (25-40) % [place] % (Auto) (3-14) % Eos % (Auto) (2-4) % Baso % (Auto) (0-2) % Neut # (Auto) (4462-3756) /uL Lymph # (Auto) (3728-5216) /uL [place] # (Auto) (0-900) /uL Eos # (Auto) (0-450) /uL Baso # (Auto) (0-100) /uL PT (10.1-12.7) SECONDS INR (0.9-1.3) APTT (26.4-36.2) SECONDS Sodium (137-145) mmol/L Potassium (3.4-5.1) mmol/L Chloride (98-107) mmol/L Carbon Dioxide (22-32) mmol/L BUN (9-20) mg/dL Creatinine (0.66-1.25) mg/dL Estimated GFR (>60) mL/min BUN/Creatinine Ratio (6-22) Glucose (80-110) mg/dL Calcium (8.4-10.2) mg/dL Magnesium (1.6-2.3) mg/dL Total Bilirubin (0.2-1.3) mg/dL AST (17-59) IU/L ALT (<50) IU/L Alkaline Phosphatase (38-126) U/L Total Creatine Kinase (55-170) U/L CK-MB (CK-2) CK-MB (CK-2) Rel Index Troponin I (0.01-0.034) ng/mL NT-Pro-B Natriuret Pep (<125) pg/mL Total Protein (6.3-8.2) g/dL Albumin (3.5-5.0) g/dL Globulin (1.7-4.1) g/dL Albumin/Globulin Ratio (1.0-2.8) Procalcitonin < 0.05 (<0.5) ng/mL Urine RBC 1-5/hpf (0-5/HPF) Urine WBC 1-5/hpf (0-5/HPF) Ur Squamous Epith Cells 0-1 /hpf (0-5/HPF) Urine Bacteria Moderate (10-30) H (None) Hyaline Casts 0-1/lpf (None) Urine Mucus 1+ H (Negative) Ur Culture Indicated? Specimen cultured Urine Dip Bedside Urine Glucose Negative Bedside Urine Bilirubin - Negative Bedside Urine Ketone - Negative Urine Specific [place] 1.015 Bedside Urine Occult Blood +/- Bedside Urine pH 7.0 Bedside Urine Protein +/- 15 Bedside Urine Urobilinogen - Negative Bedside Urine Nitrite - Negative Bedside Urine Leukocytes +/- 15 Esterase MDM Narrative Medical decision making narrative: The patient is supposed to be on amlodipine 10 mg but this can cause lower extremity edema. His lisinopril was stopped due to bradycardia, which it should not cause. Will start patient on hydrochlorothiazide and have him follow up at the [facility]. He states t hat he is having difficulty with his car but thinks he can get [place] transit to an appointment. Discharge Plan Departure Patient Disposition: Home Clinical Impression: Edema, peripheral Discharge Date/Time: 06/07/20 13:45 Instructions: Essential Hypertension, DI for Peripheral Edema -- Bilateral Activity Restrictions/Additional Instructions: *You have been diagnosed with lower extremity peripheral edema and hypertension *What to do: You will need to follow-up with [facility] to be sure that this new medication is controlling your blood pressure. The medication should also help with her lower extremity swelling. It does cause you to urinate so I recommend that you take it 1st thing in the morning *Continue to take medications as directed Stop taking amlodipine Start taking hydrochlorothiazide 25 mg once a day, in the morning *Follow up with your primary care provider in 2-3 days *Return to ER if you should have increased swelling, increased shortness of breath [or] any new, worsening or concerning symptoms Prescriptions: New hydrochlorothiazide 25 mg tablet 25 mg PO DAILY Qty: 14 RF: 0 No Action amlodipine 10 mg tablet 10 mg PO DAILY Qty: 30 RF: 0 cephalexin 250 mg Capsule 500 mg PO TID Qty: 18 RF: 0
[2020-06-07 11:38] LABS: Add Manual Diff / Slide Review NO; Basophils Absolute Auto 0 /uL (0-100); Basophils Percent Auto 0.7 % (0-2); Eosinophils Absolute Auto 200 /uL (0-450); Eosinophils Percent Auto 3.3 % (2-4); Hematocrit 43.1 % (41-53); Hemoglobin 14.8 g/dL (13.5-17.5); Lymphocytes Absolute Auto 1200 /uL (1100-4500); Lymphocytes Percent Auto 18.6 % (25-40); Mean Corpuscular HGB Conc 34.4 % (30-36); Mean Corpuscular Hemoglobin 32.8 PG (26-34); Mean Corpuscular Volume 95.5 fL (80-100); Monocytes Absolute Auto 600 /uL (0-900); Neutrophils Absolute Auto 4500 /uL (1500-7000); Neutrophils Percent Auto 68.4 % (50-75); Platelet Count 253 X10^3/uL (150-400); Red Blood Cell Count 4.51 X10^6/uL (4.5-5.9); Red Cell Distribution Width 13.2 % (11.6-14.8); White Blood Cell Count 6.6 X10^3/uL (4.5-11.0)
[2020-06-07 11:40] LABS: Prothrombin Time 11.6 SECONDS (10.1-12.7)
[2020-06-07 11:43] LABS: PTT Partial Thromboplastin Tim 29 SECONDS (26.4-36.2)
[2020-06-07 11:46] LABS: Alanine Aminotransferase 11 IU/L (<50); Albumin 3.7 g/dL (3.5-5.0); Albumin Globulin Ratio 1.2 (1.0-2.8); Alkaline Phosphatase 107 U/L (38-126); Aspartate Aminotransferase 24 IU/L (17-59); BUN Creatinine Ratio 22.4 (6-22); Bilirubin Total 0.7 mg/dL (0.2-1.3); Blood Urea Nitrogen 17 mg/dL (9-20); Calcium 9.2 mg/dL (8.4-10.2); Carbon Dioxide 26 mmol/L (22-32); Chloride 106 mmol/L (98-107); Creatine Kinase 52 U/L (55-170); Estimated Glomerular Filt Rate > 60.0 mL/min (>60); Glucose 99 mg/dL (80-110); HEMOLYSIS 25 (0-50); Magnesium 2.2 mg/dL (1.6-2.3); Potassium 3.9 mmol/L (3.4-5.1); Sodium 136 mmol/L (137-145); Total Protein 6.7 g/dL (6.3-8.2)
[2020-06-07 11:58] LABS: NT-proBNP (BNP-Adult 18+) 1300 pg/mL (<125); Troponin I 0.015 ng/mL (0.01-0.034)
[2020-06-07 12:03] LABS: Procalcitonin < 0.05 ng/mL (<0.5)
[2020-06-07 12:46] LABS: Bacteria Urine Moderate (10-30); Culture Indicated Urine Specimen Cultured; Hyaline Casts Urine 0-1/LPF; Mucus Urine 1+ (Negative); RBC Urine 1-5/HPF (0-5/HPF); Squamous Epithelial Cell Urine 0-1 /HPF (0-5/HPF); WBC Urine 1-5/HPF (0-5/HPF)
[2020-06-07 12:56] VITALS: PULSE 50; O2SAT 99
[2020-06-07 13:00] VITALS: PULSE 49; O2SAT 98
[2020-06-07 13:01] VITALS: BP 169/85; PULSE 49; O2SAT 99
[2020-06-07] MEDS: FUROSEMIDE 40 MG/4 ML VIAL 20 MG IV (13:02)
--- NOTE | 2020-06-07 13:19 | CM.SWNOTE ---
SPARK PLUG ASSEMBLER note SPARK PLUG ASSEMBLER consult requested for patient. Patient is a a 69 y/o male who presents to ED with swelling in both lower legs for the past month. Patient has [employer] Medicare Advantage and generally sees a PCP at [facility] in [place]. Patient reports he was previously staying in his car and was recently invited to move back into room in house where he used to rent. Patient admitted to ED in April 2020. SPARK PLUG ASSEMBLER enters room and introduces self and role. Patient reports he is doing much better than he was during previous stay at , and reports that he now has a place to stay. Patient reports that he makes $1200/mo in SSI, but a friend scammed him this month and now he is holding a $500 gift card to [employer] that he is trying to sell. Patient discussed that he had gotten engaged today, and explained that someone half my age from [place] had contacted him online. SPARK PLUG ASSEMBLER provided patient education on online scams. Patient convinced this person from [place] is legit. SPARK PLUG ASSEMBLER inquires about patient's status with Medicaid application from previous stay. Patient says he does not know, and provides permission for SPARK PLUG ASSEMBLER to contact [facility] to inquire about status. SPARK PLUG ASSEMBLER contacts Kendra at [facility], who informs SPARK PLUG ASSEMBLER that application is pending, and has been paused. Kendra informs SPARK PLUG ASSEMBLER that she will investigate and call SPARK PLUG ASSEMBLER back. SPARK PLUG ASSEMBLER discusses this with patient and informs patient that SPARK PLUG ASSEMBLER will update patient once SPARK PLUG ASSEMBLER learns more about status of application. Patient does have [employer] Medicare Advantage, but does not know what coverage he has with regards to prescriptions. SPARK PLUG ASSEMBLER discusses contacting [facility]'s pharmacy if he is unable to fill the prescriptions he is given today. Pl: SPARK PLUG ASSEMBLER will follow up with patient with update on status of Medicaid application once more information is obtained. JACK Giraldo
== END 2020-06-07 13:45 | disposition home or self-care (01) ==
PROVIDERS: Emergency Provider Emergency Medicine
DX: R60.9 Edema, unspecified (principal); I10 Essential (primary) hypertension; R06.00 Dyspnea, unspecified
CPT/HCPCS: 36415; 71045; 80053; 81003; 81015; 82550; 83735; 83880; 84145; 84484; 85025; 85610; 85730; 87086; 93005; 96374; 99284; J1940

== ENCOUNTER 2020-08-10 13:40 | Emergency (ER) | payer OTHER, SELFPAY ==
[2020-05-16 13:43] VITALS: BMI 33.7
[2020-08-10 13:50] VITALS: BP 165/94; PULSE 63; RESP 16; TEMP 36.4; O2SAT 98; BMI 31.1
--- NOTE | 2020-08-10 14:06 | PC.NURSE ---
Patient reports has been experiencing sciatic leg pain for last month, worse over last 3 days. States that today was driving and had severe shooting leg pain down left leg. Symptoms now resolved and pain now 0/10. Bilateral edema noted to both ankles, patient states this is not a new onset and have been that way for several months.
--- NOTE | 2020-08-10 14:46 | ED.LOWEXIN ---
HPI - Extremity Injury (Lower) General Chief Complaint: Extremity Injury, Lower Stated Complaint: burning limp leg// Time Seen by Provider: 08/10/20 14:46 Source: patient Mode of arrival: Wheelchair Limitations: no limitations History of Present Illness HPI Narrative: 70-year-old male comes to the emergency department with complaint of left back/buttock pain radiating down towards his knee. Patient states he has a history of sciatica he has not had issues for many years. 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 and was to have significant issues. Since he no longer performs at work he has had wish issues. He did have back injections in the 1970s but has not had any surgeries or recent intervention. He states currently resting and relaxing he is not having any pain, he states he is not having any pain walking around. He states he has had no numbness, tingling or weakness. He states he has been sleeping in his car recently which he thinks is the reason he is having symptoms. He is currently homeless living in his car. He denies any fevers, no loss of bowel or bladder control, and denies any other symptoms currently. He defers any current pain medication. He is not currently taking any prescription medication. Related Data Previous Rx's Medication Instructions Recorded amlodipine 10 mg PO DAILY #30 tab 05/16/20 cephalexin 500 mg PO TID #18 cap 05/16/20 hydrochlorothiazide 25 mg PO DAILY #14 tab 06/07/20 prednisone 50 mg PO DAILY #5 tab 08/10/20 Allergies Allergy/AdvReac Type Severity Reaction Status Date / Time No Known Drug Allergies Allergy Verified 08/10/20 13:54 Review of Systems Review of Systems ROS Unobtainable: All systems reviewed & are unremarkable except as noted in HPI and below Patient History Medical History Cellulitis of left leg (Acute) Congestive heart failure (Acute) Elevated troponin (Acute) Hypertension (Acute) Surgical History No pertinent past surgical history (Acute) Social History household members: other housing: other occupational status: unemployed Smoking Status: Current every day smoker alcohol intake: current additional social history: Lives in a hotel Smoking Status: Current every day smoker alcohol intake frequency: a few times a week Substance Use Type: does not use Exam Narrative Exam Narrative: GENERAL: Alert and oriented x three, well-nourished male. Patient was sleeping quite soundly when I initially came in the room but awakens to verbal stimuli HEENT: Head normocephalic, atraumatic, EOMI, pupils reactive, face symmetric, moist mucous membranes NECK: Supple, full range of motion CARDIOVASCULAR: Regular rate and rhythm without murmurs, rubs or gallops. RESPIRATORY: Breath sounds equal bilaterally, no wheezes rales or rhonchi. ABDOMEN: Soft, nontender. Normoactive bowel sounds all 4 quadrants. No guarding or rebound, rigidity, no mass : No CVA tenderness BACK: No cervical, thoracic or lumbar vertebral point tenderness. Patient has slightly decreased range of motion. Patient's gait is [antalgic/normal]. Rectal exam is deferred. Muscle strength is 5/5 in lower extremities, DTRs are 2/4 and lower extremities. Dorsalis pedis and tibialis pulses are 2+ and lower extremities. Sensation is intact in the lower extremities. EXTREMITIES: Normal range of motion, no clubbing or edema. Neurovascularly intact NEUROLOGICAL: Cranial nerves II through XII grossly intact. Moving all extremities SKIN: Warm, dry, no petechiae, no rashes or lesions. Initial Vital Signs Initial Vital Signs: Vital Signs Temperature 97.6 F 08/10/20 13:50 Pulse Rate 63 08/10/20 13:50 Respiratory Rate 16 08/10/20 13:50 Blood Pressure 165/94 H 08/10/20 13:50 Pulse Oximetry 98 08/10/20 13:50 Course Orders Ordered: ED Orders 08/10/20 15:04 Consult to [facility] - Forensic Scientist Stat Vital Signs Vital signs: Vital Signs - 8 hr 08/10/20 13:50 08/10/20 16:16 Temperature 97.6 F Pulse Rate 63 62 Respiratory Rate 16 16 Blood Pressure 165/94 H 155/80 H Pulse Oximetry 98 95 MDM - Extremity Injury (Lower) MDM Narrative Medical decision making narrative: Patient with sciatica but no red flag symptoms. He is currently asymptomatic but discussed giving him a course of steroids in case his symptoms return to see if this would be helpful. He does have Tylenol available for pain control. He is currently homeless and not taking any of his home medications, social Work evaluated the patient and has gotten him re-established with primary care within appointment in August. Discharge Plan Departure Patient Disposition: Home Clinical Impression: Sciatica Discharge Date/Time: 08/10/20 16:16 Instructions: DI for Sciatica Activity Restrictions/Additional Instructions: Follow up on September 19 at 1:45pm with Olga Najera to establish primary care [facility]. Take medications as prescribed, make sure you drink milk or eat some food when you take this medication as it can be hard on your stomach. Prescription [facility] in [place]. Continue Tylenol as needed, you may take up to a 1000 mg every 8 hours as needed. Return to the ER for rapidly worsening pain, new weakness, loss of sensation or numbness, loss of bowel or bladder control, inability to walk, inability to lift or move her leg, fevers greater 100.4 F or other new or concerning symptoms. Prescriptions: New prednisone 50 mg tablet 50 mg PO DAILY Qty: 5 RF: 0 No Action amlodipine 10 mg tablet 10 mg PO DAILY Qty: 30 RF: 0 cephalexin 250 mg Capsule 500 mg PO TID Qty: 18 RF: 0 hydrochlorothiazide 25 mg tablet 25 mg PO DAILY Qty: 14 RF: 0 Referrals: Savana Scott MD [Physician] -
--- NOTE | 2020-08-10 16:09 | CM.SWNOTE ---
AXLE POLISHER note AXLE POLISHER consult requested for patient. Patient is a 70 y/o male who is currently experiencing homelessness. Patient presents to ED today for pain in his leg which he describes as like sciatica. AXLE POLISHER enters room and meets with patient. Patient reports he recently lost housing due to confusion over a rent payment with his landlord. Patient reports that there was never any legal involvement, but that he was unaware that he could not be evicted currently due to COVID 19 rules. Patient reports he is aware of local housing resources and states he is staying in his car right now by choice, but that he may utilize shelters if homeless later in winter. AXLE POLISHER inquires about patient's connection with PCP. Patient reports he used to see Dr. Doe at [facility], but has not seen anyone since Dr. Doe' fci. Patient provides verbal permission for AXLE POLISHER to contact [facility] and set up new appointment. AXLE POLISHER calls [facility] and sets up appointment for patient on Sep 19 at 1:45pm with ARAMIS Murphy. AXLE POLISHER re enters patient room and informs him of this, and patient indicates understanding. AXLE POLISHER provides update to Dr. Enamorado, who places time of appt. in d/c notes for patient. Patient states no other needs for AXLE POLISHER at this time. Pl: Patient to d/c from ED. JACK Giraldo
[2020-08-10 16:16] VITALS: BP 155/80; PULSE 62; RESP 16; O2SAT 95
== END 2020-08-10 16:16 | disposition home or self-care (01) ==
PROVIDERS: Emergency Provider Emergency Medicine
DX: M54.42 Lumbago with sciatica, left side (principal)
CPT/HCPCS: 99281

== ENCOUNTER 2020-08-12 10:02 | Emergency (ER) | payer OTHER, SELFPAY ==
[2020-05-16 13:43] VITALS: BMI 33.7
[2020-08-12] VITALS (9 sets, daily range): BP systolic 144–178; BP diastolic 70–115; PULSE 60–75; RESP 15–18; TEMP 36.9; O2SAT 90–99; BMI 30.3
--- NOTE | 2020-08-12 10:54 | ED_ITS ---
HPI - Extremity Problem General Chief complaint: Extremity Problem,Nontraumatic Stated complaint: pain left leg/ swelling Time Seen by Provider: 08/12/20 10:54 Source: patient Mode of arrival: Wheelchair Limitations: no limitations History of Present Illness HPI Narrative: Patient is a 70-year-old male heart failure, hypertension and sciatica presenting today with increased lower extremity edema and left leg pain. He was actually seen evaluated here 2 days ago diagnosed with right-sided sciatica discharged home on prednisone. He states today for increased swelling in his ankles and left leg pain. He states he was not convinced that 2 days ago he was having sciatic pain but today he does think that his left leg is sciatic discharge from his back and radiates down his left leg. His he has no numbness or tingling no changes in urination. He denies any injury. He has not had any fevers. He states the prednisone is not helping. He does feel like his legs are much more swollen he was actually seen here in May started on hydrochlorothiazide which she had help the swelling in his legs significantly. He has not followed up with the PCP because his PCP recently retired. He denies any chest pain or shortness of breath. MD Complaint: extremity pain and extremity swelling Onset (ago): day(s) Pain Consistency: constant Location: left Quality: constant Related Data Previous Rx's Medication Instructions Recorded amlodipine 10 mg PO DAILY #30 tab 05/16/20 cephalexin 500 mg PO TID #18 cap 05/16/20 hydrochlorothiazide 25 mg PO DAILY #14 tab 06/07/20 prednisone 50 mg PO DAILY #5 tab 08/10/20 hydrochlorothiazide 25 mg PO DAILY #30 tab 08/12/20 Allergies Allergy/AdvReac Type Severity Reaction Status Date / Time No Known Drug Allergies Allergy Verified 08/12/20 10:13 Review of Systems Review of Systems ROS Unobtainable: All systems reviewed & are unremarkable except as noted in HPI and below Constitutional Constitutional: Denies chills, Denies fever(s), Denies lethargy and Denies weakness ENT Ears, Nose, Mouth, and Throat: Denies vertigo and Denies dizziness Cardiovascular Cardiovascular: Denies chest pain, Denies irregular heart rhythm, Denies lightheadedness, Denies palpitations, Denies dyspnea, Denies dyspnea on exertion and Denies orthopnea Respiratory Respiratory: Denies cough, Denies dyspnea, Denies dyspnea on exertion and Denies wheezing Gastrointestinal Gastrointestinal: Denies abdominal pain, Denies change in bowel habits, Denies diarrhea, Denies nausea and Denies vomiting Musculoskeletal Musculoskeletal: Reports system reviewed and no additional complaints, except as documented Integumentary/Breasts Skin/Breast: Denies pruritus, Denies erythema, Denies rash and Denies wounds Neurologic Neurologic: Denies vertigo, Denies dizziness and Denies weakness Endocrine Endocrine: Denies palpitations Allergic/Immunologic Allergic/Immunologic: Denies wheezing Patient History Medical History Cellulitis of left leg (Acute) Congestive heart failure (Acute) Elevated troponin (Acute) Hypertension (Acute) Surgical History No pertinent past surgical history (Acute) Social History household members: other housing: other occupational status: unemployed Smoking Status: Current every day smoker alcohol intake: current additional social history: Lives in a hotel Smoking Status: Current every day smoker alcohol intake frequency: a few times a week Substance Use Type: does not use Exam Initial Vital Signs Initial Vital Signs: Vital Signs Temperature 98.4 F 08/12/20 10:08 Pulse Rate 75 08/12/20 10:08 Respiratory Rate 15 08/12/20 10:08 Blood Pressure 178/85 H 08/12/20 10:08 Pulse Oximetry 98 08/12/20 10:08 GENERAL: Alert very pleasant reasonable male no acute distress HEENT: Head atraumatic,EOMI, pupils reactive, face symmetric, moist mucous membranes CARDIOVASCULAR: Regular rate and rhythm without murmurs, rubs or gallops. RESPIRATORY: Breath sounds equal bilaterally, no wheezes rales or rhonchi. ABDOMEN: Soft, nontender. Normoactive bowel sounds all 4 quadrants. No guarding or rebound. BACK: No vertebral tenderness EXTREMITIES: Normal range of motion, no clubbing. + 2 pitting edema Neurovascularly intact. No hip pain NEUROLOGICAL: Alert and oriented x4.Normal gait and speech. Cranial nerves II through XII grossly intact. SKIN: Warm, dry, no laceration, no petechiae, no rashes or lesions. Course Orders Ordered: ED Orders 11/14/20 11:07 XR chest 1V Stat EKG-12 Lead Stat 08/12/20 11:20 Complete Blood Count AUTO DIFF Stat Comprehensive Metabolic Panel Stat Lipase Stat NT-proBNP (BNP-Adult 18+) Stat Troponin & CK Cardiac Panel Stat Discontinued Medications Furosemide (Lasix) 20 mg IV NOW ONE Stop: 08/12/20 11:07 Last Admin: 08/12/20 11:21 Dose: 20 mg Documented by: MMINOR Ketorolac Tromethamine (Toradol) 15 mg IV NOW ONE Stop: 08/12/20 11:07 Last Admin: 08/12/20 11:22 Dose: 15 mg Documented by: MMTANAR Vital Signs Vital signs: Vital Signs - 8 hr 08/12/20 10:08 08/12/20 11:26 08/12/20 11:30 Temperature 98.4 F Pulse Rate 75 60 61 Respiratory Rate 15 18 Blood Pressure 178/85 H 144/70 H 144/74 H Pulse Oximetry 98 99 99 08/12/20 12:00 08/12/20 12:01 08/12/20 12:30 Temperature Pulse Rate 63 62 61 Respiratory Rate Blood Pressure 155/71 H 166/115 H Pulse Oximetry 98 98 98 08/12/20 12:46 08/12/20 13:00 08/12/20 13:01 Temperature Pulse Rate 68 70 70 Respiratory Rate Blood Pressure 172/81 H 169/81 H Pulse Oximetry 99 90 L 97 MDM - Extremity (Nontraumatic) Lab Data Attestation: I reviewed the patient's lab results. Result diagrams: 08/12/20 11:20 08/12/20 11:20 Labs: Lab Results 08/12/20 08/12/20 08/12/20 Range/Units 11:20 11:20 11:20 WBC 7.9 (4.5-11.0) X10^3/uL RBC 4.54 (4.5-5.9) X10^6/uL Hgb 14.8 (13.5-17.5) g/dL Hct 43.8 (41-53) % MCV 96.5 (80-100) fL MCH 32.5 (26-34) PG MCHC 33.7 (30-36) % RDW 14.1 (11.6-14.8) % Plt Count 245 (150-400) X10^3/uL Neut % (Auto) 74.0 (50-75) % Lymph % (Auto) 16.2 L (25-40) % [place] % (Auto) 6.5 (3-14) % Eos % (Auto) 2.6 (2-4) % Baso % (Auto) 0.7 (0-2) % Neut # (Auto) 5800 (6413-9032) /uL Lymph # (Auto) 1300 (2730-9279) /uL [place] # (Auto) 500 (0-900) /uL Eos # (Auto) 200 (0-450) /uL Baso # (Auto) 100 (0-100) /uL Sodium 139 (137-145) mmol/L Potassium 3.4 (3.4-5.1) mmol/L Chloride 105 (98-107) mmol/L Carbon Dioxide 32 (22-32) mmol/L BUN 27 H (9-20) mg/dL Creatinine 0.76 (0.66-1.25) mg/dL Estimated GFR > 60.0 (>60) mL/min BUN/Creatinine Ratio 35.5 H (6-22) Glucose 162 H (80-110) mg/dL Calcium 8.8 (8.4-10.2) mg/dL Total Bilirubin 0.4 (0.2-1.3) mg/dL AST 21 (17-59) IU/L ALT 14 (<50) IU/L Alkaline Phosphatase 105 (38-126) U/L Total Creatine Kinase 59 (55-170) U/L CK-MB (CK-2) TNP CK-MB (CK-2) Rel Index TNP Troponin I < 0.012 (0.01-0.034) ng/mL NT-Pro-B Natriuret Pep 646 H (<125) pg/mL Total Protein 6.4 (6.3-8.2) g/dL Albumin 3.6 (3.5-5.0) g/dL Globulin 2.8 (1.7-4.1) g/dL Albumin/Globulin Ratio 1.3 (1.0-2.8) Lipase 38 (23-300) U/L Imaging Data Chest x-ray: Radiologist's Impression: PROCEDURE: XR CHEST 1V INDICATIONS: leg swelling, sob TECHNIQUE: One view of the chest was acquired. COMPARISON: [facility], CR, XR CHEST 1V, 06/07/2020, 11:46. FINDINGS: Surgical changes and devices: None. Lungs and pleura: Lungs are clear. No pleural effusions or pneumothorax. Mediastinum: Mediastinal contours appear normal. Heart size is normal. Bones and chest wall: No suspicious bony lesions. Overlying soft tissues appear unremarkable. IMPRESSION: No acute process. Dictated by: Robinson Jones M.D. on 08/12/2020 at 11:40 ECG Data Attestation EKG: I personally reviewed and interpreted this ECG as follows: Prior ECG tracings: available for review Interpretation: Normal sinus rhythm rate 60 p.r. interval 220 T QRS [address] changes T-wave inversion noted in lead 3 only similar to the EKG new first-degree AV block MDM Narrative Medical decision making narrative: Patient's pain has improved significantly after Toradol. BNP is actually much lower than it has been previously however he does have lower extremity edema. His PCP recently retired however he should still call the office to schedule follow-up with 1 of the partners. He states the hydrochlorothiazide significantly help with his lower extremity edema previously I will restart him on that medication. His left leg pain does sound like sciatic pain, which he does have a history of as well. 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 Discharge Plan Departure Patient Disposition: Home Clinical Impression: Lower extremity edema, Sciatic leg pain Discharge Date/Time: 08/12/20 13:44 Instructions: DI for Peripheral Edema -- Bilateral Activity Restrictions/Additional Instructions: *You have been diagnosed with peripheral edema sciatic left leg *What to do: Tried increase activity as tolerated. I will start you back on hydrochlorothiazide however you must see a primary care doctor, please call Dr. Doe office, 1 of his partners should be available to see you *Continue to take medications as directed Hydrochlorothiazide 25 mg once a day--> [facility] [place] *Follow up with your primary care provider in 2-3 days *Return to ER if you should have increasing pain, increasing shortness of breath, chest pain or any new, worsening or concerning symptoms Prescriptions: New hydrochlorothiazide 25 mg tablet 25 mg PO DAILY Qty: 30 RF: 0 No Action amlodipine 10 mg tablet 10 mg PO DAILY Qty: 30 RF: 0 cephalexin 250 mg Capsule 500 mg PO TID Qty: 18 RF: 0 prednisone 50 mg tablet 50 mg PO DAILY Qty: 5 RF: 0 hydrochlorothiazide 25 mg tablet 25 mg PO DAILY Qty: 14 RF: 0 Referrals: Tucker Doe MD [Primary Care Provider] -
--- NOTE | 2020-08-12 11:07 | DI.RAD.S_ITS ---
PROCEDURE: XR CHEST 1V INDICATIONS: leg swelling, sob TECHNIQUE: One view of the chest was acquired. COMPARISON: [facility], CR, XR CHEST 1V, 06/07/2020, 11:46. FINDINGS: Surgical changes and devices: None. Lungs and pleura: Lungs are clear. No pleural effusions or pneumothorax. Mediastinum: Mediastinal contours appear normal. Heart size is normal. Bones and chest wall: No suspicious bony lesions. Overlying soft tissues appear unremarkable. IMPRESSION: No acute process. Dictated by: Robinson Jones M.D. on 08/12/2020 at 11:40 Approved by: Robinson Jones M.D. on 08/12/2020 at 11:40
[2020-08-12] MEDS: FUROSEMIDE 40 MG/4 ML VIAL 20 MG IV (11:21)
[2020-08-12] MEDS: KETOROLAC 60 MG/2 ML VIAL 15 MG IV (11:22)
[2020-08-12 11:38] LABS: Add Manual Diff / Slide Review NO; Basophils Absolute Auto 100 /uL (0-100); Basophils Percent Auto 0.7 % (0-2); Eosinophils Absolute Auto 200 /uL (0-450); Eosinophils Percent Auto 2.6 % (2-4); Hematocrit 43.8 % (41-53); Hemoglobin 14.8 g/dL (13.5-17.5); Lymphocytes Absolute Auto 1300 /uL (1100-4500); Lymphocytes Percent Auto 16.2 % (25-40); Mean Corpuscular HGB Conc 33.7 % (30-36); Mean Corpuscular Hemoglobin 32.5 PG (26-34); Mean Corpuscular Volume 96.5 fL (80-100); Monocytes Absolute Auto 500 /uL (0-900); Monocytes Percent Auto 6.5 % (3-14); Neutrophils Absolute Auto 5800 /uL (1500-7000); Platelet Count 245 X10^3/uL (150-400); Red Blood Cell Count 4.54 X10^6/uL (4.5-5.9); Red Cell Distribution Width 14.1 % (11.6-14.8); White Blood Cell Count 7.9 X10^3/uL (4.5-11.0)
[2020-08-12 11:46] LABS: Alanine Aminotransferase 14 IU/L (<50); Albumin 3.6 g/dL (3.5-5.0); Albumin Globulin Ratio 1.3 (1.0-2.8); Alkaline Phosphatase 105 U/L (38-126); Aspartate Aminotransferase 21 IU/L (17-59); BUN Creatinine Ratio 35.5 (6-22); Bilirubin Total 0.4 mg/dL (0.2-1.3); Blood Urea Nitrogen 27 mg/dL (9-20); Calcium 8.8 mg/dL (8.4-10.2); Carbon Dioxide 32 mmol/L (22-32); Chloride 105 mmol/L (98-107); Creatine Kinase 59 U/L (55-170); Estimated Glomerular Filt Rate > 60.0 mL/min (>60); Globulin 2.8 g/dL (1.7-4.1); Glucose 162 mg/dL (80-110); HEMOLYSIS 16 (0-50); Lipase 38 U/L (23-300); Potassium 3.4 mmol/L (3.4-5.1); Sodium 139 mmol/L (137-145); Total Protein 6.4 g/dL (6.3-8.2)
[2020-08-12 11:56] LABS: NT-proBNP (BNP-Adult 18+) 646 pg/mL (<125)
[2020-08-12 11:58] LABS: Troponin I < 0.012 ng/mL (0.01-0.034)
--- NOTE | 2020-08-12 13:41 | PC.NURSE ---
I printed and obtained resources for the patient for shelters/medicaid, etc. for homeless. JACK Espino also came down to speak with the patient and stress the importance of obtaining medicaid. Patient appreciative of help. I wheeled him to his car in wheelchair. I also gave him socks for swollen feet.
--- NOTE | 2020-08-12 14:56 | CM.SWNOTE ---
PHYSICAL OPTICS TEACHER Note RADHA Spaulding contacts this PHYSICAL OPTICS TEACHER to ask- any other housing/detention resources available for this 70 yo male, currently homeless, states he has been living in his car. Reviewed charts from prior ED visits. Patient familiar to this PHYSICAL OPTICS TEACHER from prior admission to the acute care floor. Asked patient if he had a phone- yes. Asked if the state had tried to call re: status of his [place] application? Patient tells this PHYSICAL OPTICS TEACHER that he receives many calls and not sure which ones are scam calls. This PHYSICAL OPTICS TEACHER provides number for [facility] and strongly encourages patient to call Friday morning to inquire about status of [place] application; explained to patient that this task should be his priority- if he is qualified and obtains [place] coverage for terminologist care/placement, it could get him a step closer to secure and stable housing, patient states oh, really? Meanwhile, patient reminded he can chk in through [facility], detention resource in [place], chk in at 5 or 6 at [facility] the [facility] in [place] Patient familiar w/the resource. States he has access to food, knows where to get meals. [employer], PHYSICAL OPTICS TEACHER
== END 2020-08-12 13:44 | disposition home or self-care (01) ==
PROVIDERS: Emergency Provider Emergency Medicine; PCP Family Medicine
DX: M54.32 Sciatica, left side (principal); R60.0 Localized edema; R06.02 Shortness of breath
CPT/HCPCS: 36415; 71045; 80053; 82550; 83690; 83880; 84484; 85025; 93005; 96374; 96375; 99284; J1885; J1940

== ENCOUNTER 2020-08-15 02:19 | Emergency (ER) | payer OTHER, SELFPAY ==
[2020-05-16 13:43] VITALS: BMI 33.7
[2020-08-15 02:25] VITALS: BP 174/87; PULSE 68; RESP 16; TEMP 36.4; O2SAT 95; BMI 31.1
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
== END 2020-08-15 02:50 | disposition home or self-care (01) ==
PROVIDERS: Emergency Provider Emergency Medicine; PCP Family Medicine
DX: Z76.0 Encounter for issue of repeat prescription (principal)
CPT/HCPCS: 99281

== ENCOUNTER 2020-08-29 14:19 | Emergency (ER) | payer OTHER, SELFPAY ==
[2020-05-16 13:43] VITALS: BMI 33.7
[2020-08-29 14:25] VITALS: BP 217/106; PULSE 78; RESP 15; TEMP 36.9; O2SAT 96; BMI 31.1
--- NOTE | 2020-08-29 14:38 | ED_ITS ---
HPI - Extremity Problem <ARAMIS Montaño - Last Filed: 08/29/20 20:05> General Chief complaint: Extremity Problem,Nontraumatic Stated complaint: Sore On Back Of Left Lower Leg Time Seen by Provider: 08/29/20 14:22 Source: patient Mode of arrival: Ambulatory Limitations: no limitations History of Present Illness HPI Narrative: 70yo male presents to the ED for a wound on the back of his left heel for the past 10 days. Patient states he is unsure how he got it. Denies any history of diabetes. Patient is concern it may be infected. He states there may have been pus from the wound few days ago but denies any discharge recently. He denies any other symptoms such as fever, chills, nausea, vomiting, diarrhea, chest pain, or any other concerns. Related Data Previous Rx's Medication Instructions Recorded amlodipine 10 mg PO DAILY #30 tab 05/16/20 cephalexin 500 mg PO TID #18 cap 05/16/20 hydrochlorothiazide 25 mg PO DAILY #14 tab 06/07/20 prednisone 50 mg PO DAILY #5 tab 08/10/20 hydrochlorothiazide 25 mg PO DAILY #30 tab 08/12/20 hydrochlorothiazide 25 mg PO DAILY #30 tab 08/15/20 doxycycline hyclate 100 mg PO BID 7 Days #14 cap 08/29/20 doxycycline hyclate 100 mg PO BID 7 Days #14 cap 08/29/20 mupirocin 1 applic TOPICAL BID #15 g 08/29/20 mupirocin 1 applic TOPICAL BID #15 g 08/29/20 Allergies Allergy/AdvReac Type Severity Reaction Status Date / Time No Known Drug Allergies Allergy Verified 08/29/20 14:30 Review of Systems <ARAMIS Montaño - Last Filed: 08/29/20 20:05> Review of Systems Narrative: REVIEW OF SYSTEMS: GENERAL: Denies fever or chills. HENT: Denies head trauma. CARDIOVASCULAR: Denies syncope. MUSCULOSKELETAL: Denies weakness, or deformities. INTEGUMENTARY: Complains of wound to the back of left heel, see HPI. NEURO: Denies numbness or tingling. Patient History <ARAMIS Montaño - Last Filed: 08/29/20 20:05> Medical History (Updated 08/30/20 @ 00:00 by ) Cellulitis of left leg Congestive heart failure Elevated troponin Hypertension Surgical History No pertinent past surgical history Social History household members: other housing: other occupational status: unemployed Smoking Status: Former smoker alcohol intake: current additional social history: Lives in a hotel Smoking Status: Former smoker alcohol intake frequency: other Substance Use Type: does not use Exam <ARAMIS Montaño - Last Filed: 08/29/20 20:05> Initial Vital Signs Initial Vital Signs: Vital Signs Temperature 98.5 F 08/29/20 14:25 Pulse Rate 78 08/29/20 14:25 Respiratory Rate 15 08/29/20 14:25 Blood Pressure 217/106 H 08/29/20 14:25 Pulse Oximetry 96 08/29/20 14:25 PHYSICAL EXAMINATION: GENERAL: Well groomed, alert, and cooperative. Answers questions promptly and appropriately. Vital signs noted. HENT: Normocephalic, atraumatic. RESPIRATORY: Normal respiratory rate, trachea midline, airway patent. No stridor, nasal flaring or accessory muscle use. MUSCULOSKELETAL: Normal gait and coordination. Equal tone and mass bilaterally. EXTREMITIES: CMS intact. Moves all extremities. Pedal pulses 2+ and intact bilaterally. No pedal edema. SKIN: Warm, dry, soft, appropriate color for ethnicity. There is a 3 cm x 2 cm scab noted to the back of left ankle, small amount of surrounding erythema concerning for the start of cellulitis, no purulent exudate, no fluctuation. NEURO: Alert and Oriented X 3. Good coordination. PSYCH: Appropriate affect and mood. <Adwoa Enamorado DO - Last Filed: 09/03/20 17:01> Initial Vital Signs Initial Vital Signs: Vital Signs Temperature 98.5 F 08/29/20 14:25 Pulse Rate 78 08/29/20 14:25 Respiratory Rate 15 08/29/20 14:25 Blood Pressure 217/106 H 08/29/20 14:25 Pulse Oximetry 96 08/29/20 14:25 Course <ARAMIS Montaño - Last Filed: 08/29/20 20:05> Vital Signs Vital signs: Vital Signs - 8 hr 08/29/20 14:25 08/29/20 15:14 Temperature 98.5 F Pulse Rate 78 64 Respiratory Rate 15 17 Blood Pressure 217/106 H 169/78 H Pulse Oximetry 96 97 <Adwoa Enamorado DO - Last Filed: 09/03/20 17:01> Vital Signs Vital signs: Vital Signs - 8 hr 08/29/20 14:25 08/29/20 15:14 Temperature 98.5 F Pulse Rate 78 64 Respiratory Rate 15 17 Blood Pressure 217/106 H 169/78 H Pulse Oximetry 96 97 MDM - Extremity (Nontraumatic) <Sumi HernandezARAMIS - Last Filed: 08/29/20 20:05> Medical Records Attestation: I reviewed the patient's medical records. Lab Data Attestation: I reviewed the patient's lab results. [facility] Narrative Medical decision making narrative: History and examination concerning for cellulitis given surrounding erythema to patient's scab. No concerns of abscess formation given lack of fluctuation or purulent discharge. Patient did report past purulent discharge that is now resolved, which increases my suspicion for MRSA. Doxycycline was prescribed. Patient was also prescribed mupirocin. He was encouraged to keep the area clean and dry and follow up with his PCP. Patient was given information to establish a primary care provider. He is hemodynamically stable, non tachycardic and afebrile. ED return precautions given for new or worsening symptoms. Patient agreed to plan of care verbalized understanding. Discharge Plan Departure Patient Disposition: Home Clinical Impression: Wound infection Instructions: DI for Wound Infection Activity Restrictions/Additional Instructions: Thank you for entrusting me with your care today. As discussed, it appears your wound may be infected. Soak your foot in warm water with soap. Rinse the area thoroughly. Apply mupirocin ointment to the area 1 to 2 times a day. I have given you a prescription for antibiotics, please take this as directed. These prescriptions were sent to [facility] in [place]. Please call and schedule a follow-up appointment with a primary care provider. Your blood pressure was high today, please discuss this with them. Return emergency department for any new or worsening symptoms. Prescriptions: New doxycycline hyclate 100 mg capsule 100 mg PO BID 7 Days Qty: 14 RF: 0 mupirocin 2 % ointment 1 applic topical BID Qty: 15 RF: 0 doxycycline hyclate 100 mg capsule 100 mg PO BID 7 Days Qty: 14 RF: 0 mupirocin 2 % ointment 1 applic topical BID Qty: 15 RF: 0 No Action amlodipine 10 mg tablet 10 mg PO DAILY Qty: 30 RF: 0 cephalexin 250 mg Capsule 500 mg PO TID Qty: 18 RF: 0 prednisone 50 mg tablet 50 mg PO DAILY Qty: 5 RF: 0 hydrochlorothiazide 25 mg tablet 25 mg PO DAILY Qty: 14 RF: 0 hydrochlorothiazide 25 mg tablet 25 mg PO DAILY Qty: 30 RF: 0 hydrochlorothiazide 25 mg tablet 25 mg PO DAILY Qty: 30 RF: 0 Referrals: Tucker Doe MD [Primary Care Provider] - <Adwoa Enamorado DO - Last Filed: 09/03/20 17:01> Cosign ED Attending Cosignature Attestation: I was immediately available in the department for consultation. This documentation has been reviewed and I agree with assessment and plan. Supervised by Adwoa Enamorado DO
[2020-08-29 15:14] VITALS: BP 169/78; PULSE 64; RESP 17; O2SAT 97
== END 2020-08-29 15:32 | disposition home or self-care (01) ==
PROVIDERS: Emergency Provider Nurse Practitioner; PCP Family Medicine
DX: L08.89 Other specified local infections of the skin and subcutaneous tissue (principal)
CPT/HCPCS: 99281

== ENCOUNTER 2020-11-16 10:11 | Emergency (ER) | payer MEDICARE, SELFPAY ==
[2020-05-16 13:43] VITALS: BMI 33.7
[2020-11-16 10:27] VITALS: BP 167/84; PULSE 67; RESP 16; TEMP 36.9; O2SAT 97
--- NOTE | 2020-11-16 10:34 | ED.LOWEXIN ---
HPI - Extremity Injury (Lower) <ARAMIS Montaño - Last Filed: 11/16/20 16:13> General Chief Complaint: Extremity Injury, Lower Stated Complaint: PAIN IN LEGS POST FALL X 2DAYS Time Seen by Provider: 11/16/20 10:17 History of Present Illness HPI Narrative: 70yo male who is well-known to the emergency department, currently living out of his truck, presents today for right knee pain after fall a few days ago. Patient states that a few days ago his truck got stuck in the snow, he got out of his truck and slipped and fell on wet snow falling onto his left knee. He states the knee pain is a dull aching pain that is worsened over the past few days, worsens with weight-bearing and pressure. He has chronic swollen lower extremity edema, he states he has been seen last month by his PCP. Patient also states that he this to new sores over his right knox over the past 2 days. He states they are weeping serosanguineous drainage, no purulent drainage. Patient denies any other symptoms such as further injury, no headache, chest pain, shortness of breath, dizziness, nausea, vomiting, diarrhea, or any other concerns. Related Data Previous Rx's Medication Instructions Recorded amlodipine 10 mg PO DAILY #30 tab 05/16/20 cephalexin 500 mg PO TID #18 cap 05/16/20 hydrochlorothiazide 25 mg PO DAILY #14 tab 06/07/20 prednisone 50 mg PO DAILY #5 tab 08/10/20 hydrochlorothiazide 25 mg PO DAILY #30 tab 08/12/20 hydrochlorothiazide 25 mg PO DAILY #30 tab 08/15/20 mupirocin 1 applic TOPICAL BID #15 g 08/29/20 mupirocin 1 applic TOPICAL BID #15 g 08/29/20 doxycycline hyclate 100 mg PO BID 7 Days #14 cap 11/16/20 doxycycline hyclate 100 mg PO BID 7 Days #14 tab 11/16/20 mupirocin 1 applic TOPICAL BID #15 g 11/16/20 mupirocin 1 applic TOPICAL BID #15 g 11/16/20 Allergies Allergy/AdvReac Type Severity Reaction Status Date / Time No Known Drug Allergies Allergy Verified 11/16/20 10:52 Review of Systems <ARAMIS Montaño - Last Filed: 11/16/20 16:13> Review of Systems Narrative: REVIEW OF SYSTEMS: GENERAL: Denies fever or chills. HENT: No head trauma. CARDIOVASCULAR: No chest pain or syncope. RESPIRATORY: No shortness of breath GASTROINTESTINAL: No nausea or vomiting. MUSCULOSKELETAL: Complains of L knee pain, see HPI. INTEGUMENTARY: No rash, lesions, or pruritus. NEURO: No numbness, tingling. Patient History <ARAMIS Montaño - Last Filed: 11/16/20 16:13> Medical History (Updated 11/16/20 @ 11:57 by ARAMIS Montaño) Cellulitis of left leg Congestive heart failure Elevated troponin Hypertension Surgical History No pertinent past surgical history Social History household members: other housing: other occupational status: unemployed Smoking Status: Former smoker alcohol intake: current additional social history: Lives in a hotel Smoking Status: Former smoker alcohol intake frequency: other Substance Use Type: does not use Exam <ARAMIS Montaño - Last Filed: 11/16/20 16:13> Initial Vital Signs Initial Vital Signs: Vital Signs Temperature 98.4 F 11/16/20 10:27 Pulse Rate 67 11/16/20 10:27 Respiratory Rate 16 11/16/20 10:27 Blood Pressure 167/84 H 11/16/20 10:27 Pulse Oximetry 97 11/16/20 10:27 PHYSICAL EXAMINATION: GENERAL: Awake and alert. Poor hygiene, strong personal odor. HENT: Normocephalic, atraumatic. EYES: Symmetrical, sclera white, no periorbital swelling. RESPIRATORY: Normal respiratory rate, trachea midline, airway patent. No stridor, nasal flaring or accessory muscle use. MUSCULOSKELETAL: Difficult to determine if there is mild swelling to left knee due to lower leg edema, some tenderness around patella area. Knee strong is stable. EXTREMITIES: CMS intact. Patient has 2+ lower leg edema, nonpitting. To 1-2cm fairly superficial ulcerations noted mid knox, serosanguineous drainage noted, a very small amount of surrounding erythema <1cm. SKIN: Warm, dry, soft, appropriate color for ethnicity. No lesions, rashes, or wounds. NEURO: Alert and Oriented X 3. No sensory deficits. PSYCH: Appropriate affect and mood. <Gina Vega DO - Last Filed: 11/17/20 08:01> Initial Vital Signs Initial Vital Signs: Vital Signs Temperature 98.4 F 11/16/20 10:27 Pulse Rate 67 11/16/20 10:27 Respiratory Rate 16 11/16/20 10:27 Blood Pressure 167/84 H 11/16/20 10:27 Pulse Oximetry 97 11/16/20 10:27 Course <ARAMIS Montaño - Last Filed: 11/16/20 16:13> Orders Ordered: ED Orders 11/16/20 10:33 XR knee LT 3V Stat Vital Signs Vital signs: Vital Signs - 8 hr 11/16/20 10:27 11/16/20 13:07 Temperature 98.4 F Pulse Rate 67 65 Respiratory Rate 16 20 Blood Pressure 167/84 H 154/76 H Pulse Oximetry 97 95 <Gina Vega DO - Last Filed: 11/17/20 08:01> Orders Ordered: ED Orders 11/16/20 10:33 XR knee LT 3V Stat Vital Signs Vital signs: Vital Signs - 8 hr 11/16/20 10:27 11/16/20 13:07 Temperature 98.4 F Pulse Rate 67 65 Respiratory Rate 16 20 Blood Pressure 167/84 H 154/76 H Pulse Oximetry 97 95 MDM - Extremity Injury (Lower) <ARAMIS Montaño - Last Filed: 11/16/20 16:13> Medical Records Attestation: I reviewed the patient's medical records. Lab Data Attestation: I reviewed the patient's lab results. Imaging Data Chest x-ray: Radiologist's Impression: [address] [id number] ReportSigned Patient: Rayo Estrada CMR#: [id number]: [id number]:[id number]/Sex: 70 / MDate of Service: 11/16/20Loc: EDAccession Number: [id number] Procedure: XR knee LT 3V Ordering Provider: Sumi Hernandez PROCEDURE: XR KNEE LT 3V INDICATIONS: L knee pain and swelling post fall TECHNIQUE: 3 views of the knee were acquired. COMPARISON: None. FINDINGS: Bones: No fractures or dislocations. No suspicious bony lesions. There is subluxation at the knee joint. Severe medial and patellofemoral as well as minimal lateral compartment narrowing. Areas of subchondral sclerosis and periarticular osteophytes are present. Chondrocalcinosis is present. Soft tissues: Prominent joint effusion. No suspicious soft tissue calcifications. IMPRESSION: Prominent fusion subluxation at the knee joint. No definitive fractures identified. However, there is significant superimposed degenerative change. If clinical suspicion is high for fracture, CT is recommended. Dictated by: Minerva Bell M.D. on 11/16/2020 at 11:36 Approved by: Minerva Bell M.D. on 11/16/2020 at 11:37 MDM Narrative Medical decision making narrative: History and examination consistent with knee injury. Less likely fracture as x-ray is negative however, there is some superimposed degenerative changes seen on x-ray. Patient has been walking around a knee without much difficulty. When discussing the x-ray findings with patient, he states he knows he has significant arthritis. I suspect this is most likely contributing to swelling. Knee exam was rather benign. He was given an Freddie wrap to help with pain, offered a brace by patient declined. Patient able to ambulate without any difficulty. Patient also appears to have some wounds from his chronic edema. There is some small surrounding erythema. I suspect mupirocin would be sufficient however, there is some concern for increasing infection as patient has poor hygiene and lives out of his vehicle. We discussed the benefits and risks of antibiotics. Patient was started on doxycycline. He was encouraged to follow up with his PCP in the next 2 weeks for further evaluation. Patient is hemodynamically stable, no signs of sepsis. Patient agreed to the plan of care. ED/Return precautions given for new or worsening symptoms. Discharge Plan Departure Patient Disposition: Home Clinical Impression: Injury, knee Qualifiers: Encounter type: initial encounter Laterality: left Qualified Code(s): S89.92XA - Unspecified injury of left lower leg, initial encounter Cellulitis Qualifiers: Site of cellulitis: extremity Site of cellulitis of extremity: lower extremity Laterality: left Qualified Code(s): L03.116 - Cellulitis of left lower limb Instructions: DI for Cellulitis -- Adult, DI for Knee Pain Activity Restrictions/Additional Instructions: Thank you for entrusting me with your care today. As discussed, your x-ray shows some swelling but no fractures at this time. It does shows worsening degenerative changes which is most likely arthritis. I prescribed an ointment and antibiotics for the wounds on your right leg. Please fill this and take this accordingly. I suggest following up with your primary care provider in the next week for further evaluation. Return emergency department for any new or worsening symptoms. Prescriptions: New mupirocin 2 % ointment 1 applic topical BID Qty: 15 RF: 0 doxycycline hyclate 100 mg capsule 100 mg PO BID 7 Days Qty: 14 RF: 0 mupirocin 2 % ointment 1 applic topical BID Qty: 15 RF: 0 doxycycline hyclate 100 mg tablet 100 mg PO BID 7 Days Qty: 14 RF: 0 No Action amlodipine 10 mg tablet 10 mg PO DAILY Qty: 30 RF: 0 cephalexin 250 mg Capsule 500 mg PO TID Qty: 18 RF: 0 prednisone 50 mg tablet 50 mg PO DAILY Qty: 5 RF: 0 hydrochlorothiazide 25 mg tablet 25 mg PO DAILY Qty: 14 RF: 0 hydrochlorothiazide 25 mg tablet 25 mg PO DAILY Qty: 30 RF: 0 hydrochlorothiazide 25 mg tablet 25 mg PO DAILY Qty: 30 RF: 0 mupirocin 2 % ointment 1 applic topical BID Qty: 15 RF: 0 mupirocin 2 % ointment 1 applic topical BID Qty: 15 RF: 0 <Gina Vega DO - Last Filed: 11/17/20 08:01> [facility] ED Attending Yeimy Attestation: I was immediately available in the department for consultation. Documentation has been reviewed. I agree with assessment and plan.
[2020-11-16 13:07] VITALS: BP 154/76; PULSE 65; RESP 20; O2SAT 95
== END 2020-11-16 13:05 | disposition home or self-care (01) ==
PROVIDERS: Emergency Provider Nurse Practitioner
DX: S89.92XA Unspecified injury of left lower leg, initial encounter (principal); L03.116 Cellulitis of left lower limb; W00.0XXA Fall on same level due to ice and snow, initial encounter
CPT/HCPCS: 73562; 99281; 99283

== ENCOUNTER → 2021-01-18 12:02 | Outpatient (CLI) | payer MEDICARE, SELFPAY ==
[2020-05-16 13:43] VITALS: BMI 33.7
[2021-01-18] MEDS: COVID-19 VACC #1, MRNA(MOD) 100 MCG/0.5 ML VIAL IM (12:11)
== END ==
PROVIDERS: Visit Provider Internal Medicine
DX: Z23 Encounter for immunization (principal)
CPT/HCPCS: 0011A; 91301

== ENCOUNTER → 2021-02-15 10:28 | Outpatient (CLI) | payer MEDICARE, SELFPAY ==
[2020-05-16 13:43] VITALS: BMI 33.7
[2021-02-15] MEDS: COVID-19 VACC #2, MRNA(MOD) 100 MCG/0.5 ML VIAL IM (10:44)
== END ==
PROVIDERS: Visit Provider Internal Medicine
DX: Z23 Encounter for immunization (principal)
CPT/HCPCS: 0012A; 91301

== ENCOUNTER 2021-03-27 07:51 | Emergency (ER) | payer MEDICARE, SELFPAY ==
[2020-05-16 13:43] VITALS: BMI 33.7
--- NOTE | 2021-03-27 08:33 | ED_ITS ---
HPI - Skin/Abscess/Foreign Bdy General Chief complaint: Skin/Abscess/Foreign Body Stated complaint: sores on hands Time Seen by Provider: 03/27/21 08:29 Source: patient Mode of arrival: Wheelchair Limitations: no limitations History of Present Illness HPI narrative: Patient is a 70-year-old male who is homeless presenting with bilateral hand pain and bruising. He has obvious senile purpura. He says he reached into his pocket with his right hand yesterday and scraped it. There is 1 very small superficial abrasion on the dorsal side of his right hand. There is no erythema. He has no weakness numbness or tingling. He is noted to have lower extremity edema he says he likes at least that way. He denies any chest pain or shortness of breath. She also had urinary incontinence in the wheelchair in the waiting room. Denies any painful or frequent urination Related Data Previous Rx's Medication Instructions Recorded amlodipine 10 mg tablet 10 mg PO DAILY #30 tab 05/16/20 cephalexin 250 mg capsule 500 mg PO TID #18 cap 05/16/20 hydrochlorothiazide 25 mg tablet 25 mg PO DAILY #14 tab 06/07/20 prednisone 50 mg tablet 50 mg PO DAILY #5 tab 08/10/20 hydrochlorothiazide 25 mg tablet 25 mg PO DAILY #30 tab 08/12/20 hydrochlorothiazide 25 mg tablet 25 mg PO DAILY #30 tab 08/15/20 mupirocin 2 % topical ointment 1 applic TOPICAL BID #15 g 08/29/20 mupirocin 2 % topical ointment 1 applic TOPICAL BID #15 g 08/29/20 mupirocin 2 % topical ointment 1 applic TOPICAL BID #15 g 11/16/20 mupirocin 2 % topical ointment 1 applic TOPICAL BID #15 g 11/16/20 Allergies Allergy/AdvReac Type Severity Reaction Status Date / Time No Known Drug Allergies Allergy Verified 11/16/20 10:52 Review of Systems Review of Systems Narrative: GENERAL: Denies chills, fatigue, malaise, fever, sweats, travel HEENT: Denies sinus pain, ear pain, sore throat, difficulty swallowing, neck pain RESPIRATORY: Denies dyspnea, cough, wheezing, hemoptysis, sputum. CARDIOVASCULAR: Denies chest pain, palpitations, orthopnea, edema GASTROINTESTINAL: Denies nausea, vomiting, abdominal pain, diarrhea, constipation, melena. : Urinary incontinence MUSCULOSKELETAL: Lower extremity swelling Denies weakness, joint pain, or bony pain SKIN: See HPI NEUROLOGIC: Denies weakness, dizziness, headache, numbness, change in speech, confusion PSYCHIATRIC: Homeless. 12 point review of systems is negative except for those stated above and HPI Patient History Medical History (Updated 03/27/21 @ 08:36 by Gina Vega DO) Cellulitis of left leg Congestive heart failure Elevated troponin Hypertension Surgical History No pertinent past surgical history Social History household members: other housing: other occupational status: unemployed Smoking Status: Former smoker alcohol intake: current additional social history: Lives in a hotel Smoking Status: Former smoker alcohol intake frequency: other Substance Use Type: does not use Exam Initial Vital Signs Initial Vital Signs: Vital Signs Temperature 98.7 F 03/27/21 08:35 Pulse Rate 77 03/27/21 08:35 Respiratory Rate 18 03/27/21 08:35 Blood Pressure 144/67 H 03/27/21 08:35 Pulse Oximetry 96 03/27/21 08:35 GENERAL: 70-year-old male he is disheveled but alert and appropriate CARDIOVASCULAR: peripheral pulses in tact, cap refill <2 sec RESPIRATORY: No respiratory distress, speaks in full sentences without difficulty : Obvious urinary incontinence EXTREMITIES: Bilateral lower extremity edema Normal range of motion, no clubbing Neurovascularly intact NEUROLOGICAL: Cranial nerves II through XII grossly intact. Normal gait and speech. SKIN: Bilateral dorsal hand contusion no erythema streaking no other wounds Course Vital Signs Vital signs: Vital Signs - 8 hr 03/27/21 08:35 Temperature 98.7 F Pulse Rate 77 Respiratory Rate 18 Blood Pressure 144/67 H Pulse Oximetry 96 Discharge Plan Departure Patient Disposition: Home Clinical Impression: Senile purpura Instructions: Contusion Activity Restrictions/Additional Instructions: *You have been diagnosed with senile purpura *What to do: your hands are bruised. As we get older the skin gets better and they bruise easily. Continue to use the ointment that you have 1-2 times daily as needed. Currently these do not seem to be infected *Continue to take medications as directed *Follow up with your primary care provider in 2-3 days *Return to ER if you should have increasing redness pain pus or swelling [or] any new, worsening or concerning symptoms Prescriptions: No Action amlodipine 10 mg tablet 10 mg PO DAILY Qty: 30 RF: 0 cephalexin 250 mg Capsule 500 mg PO TID Qty: 18 RF: 0 prednisone 50 mg tablet 50 mg PO DAILY Qty: 5 RF: 0 mupirocin 2 % ointment 1 applic topical BID Qty: 15 RF: 0 mupirocin 2 % ointment 1 applic topical BID Qty: 15 RF: 0 hydrochlorothiazide 25 mg tablet 25 mg PO DAILY Qty: 14 RF: 0 hydrochlorothiazide 25 mg tablet 25 mg PO DAILY Qty: 30 RF: 0 hydrochlorothiazide 25 mg tablet 25 mg PO DAILY Qty: 30 RF: 0 mupirocin 2 % ointment 1 applic topical BID Qty: 15 RF: 0 mupirocin 2 % ointment 1 applic topical BID Qty: 15 RF: 0 Referrals: [facility] [Outside]
[2021-03-27 08:35] VITALS: BP 144/67; PULSE 77; RESP 18; TEMP 37.1; O2SAT 96
--- NOTE | 2021-03-27 09:22 | PC.NURSE ---
pt has bruising on both hands, no open sores.
== END 2021-03-27 08:47 | disposition home or self-care (01) ==
PROVIDERS: Emergency Provider Emergency Medicine
DX: D69.2 Other nonthrombocytopenic purpura (principal)
CPT/HCPCS: 99281

== ENCOUNTER 2021-03-30 11:26 | Emergency (ER) | payer MEDICARE, SELFPAY ==
[2020-05-16 13:43] VITALS: BMI 33.7
[2021-03-30 11:30] VITALS: BP 128/74; PULSE 79; RESP 15; TEMP 36.2; O2SAT 96
--- NOTE | 2021-03-30 13:05 | ED_ITS ---
HPI - Recheck/Abnormal Lab/Rx General Chief Complaint: Recheck/Abnormal Lab/Rx Stated Complaint: would like wounds on hands evaluated Time Seen by Provider: 03/30/21 13:05 Source: patient Mode of arrival: Ambulatory Limitations: no limitations History of Present Illness HPI narrative: This is a 70-year-old male comes emergency department for repeat evaluation of his hands. Patient was seen on March 27 and diagnosed with senile purpura. This is still present it has not significantly worsened. After discussion with patient he states he did scrape his right wrist and developed a small wound. Patient states it is mildly painful. He is unsure if his tetanus is up-to-date. He states he does take an aspirin 81 mg daily and asked if he should increase his dose. We discussed that this would actually make his senile purpura worse and if there is not a medical reason to increase it I would not at this time. Patient does not have any other concerns at this time. He does not have any additional questions at this time. He states he would like to leave to go buy some ice cream. Related Data Previous Rx's Medication Instructions Recorded amlodipine 10 mg tablet 10 mg PO DAILY #30 tab 05/16/20 cephalexin 250 mg capsule 500 mg PO TID #18 cap 05/16/20 hydrochlorothiazide 25 mg tablet 25 mg PO DAILY #14 tab 06/07/20 prednisone 50 mg tablet 50 mg PO DAILY #5 tab 08/10/20 hydrochlorothiazide 25 mg tablet 25 mg PO DAILY #30 tab 08/12/20 hydrochlorothiazide 25 mg tablet 25 mg PO DAILY #30 tab 08/15/20 mupirocin 2 % topical ointment 1 applic TOPICAL BID #15 g 08/29/20 mupirocin 2 % topical ointment 1 applic TOPICAL BID #15 g 08/29/20 mupirocin 2 % topical ointment 1 applic TOPICAL BID #15 g 11/16/20 mupirocin 2 % topical ointment 1 applic TOPICAL BID #15 g 11/16/20 Allergies Allergy/AdvReac Type Severity Reaction Status Date / Time No Known Drug Allergies Allergy Verified 03/30/21 11:34 Review of Systems Review of Systems ROS Unobtainable: All systems reviewed & are unremarkable except as noted in HPI and below Patient History Medical History Cellulitis of left leg Congestive heart failure Elevated troponin Hypertension Surgical History No pertinent past surgical history Social History household members: other housing: other occupational status: unemployed Smoking Status: Former smoker alcohol intake: current additional social history: Lives in a hotel Smoking Status: Former smoker alcohol intake frequency: other Substance Use Type: does not use Exam Narrative Exam Narrative: GENERAL: Alert and oriented x three, mildly disheveled male in no acute distress. HEENT: Head normocephalic, atraumatic, EOMI, pupils reactive, face symmetric, moist mucous membranes NECK: Supple, full range of motion CARDIOVASCULAR: Regular rate and rhythm without murmurs, rubs or gallops. RESPIRATORY: Breath sounds equal bilaterally, no wheezes rales or rhonchi. ABDOMEN: Soft, nontender. Normoactive bowel sounds all 4 quadrants. No guarding or rebound, rigidity, no mass : No CVA tenderness EXTREMITIES: Bilateral lower extremity edema. Normal range of motion. Neurovascularly intact. Patient has patches of ecchymosis on his hands and forearms. He does a 1 cm abrasion to his right wrist which appears to be through the dermis but no subcutaneous tissue exposed, patient does not have any warmth, erythema or drainage from the site. It is very mildly tender to touch. Patient has 2+ radial pulses bilaterally. NEUROLOGICAL: Cranial nerves II through XII grossly intact. Moving all extremities SKIN: Warm, dry, no petechiae, no rashes or lesions noted other than above Initial Vital Signs Initial Vital Signs: Vital Signs Temperature 97.1 F L 03/30/21 11:30 Pulse Rate 79 03/30/21 11:30 Respiratory Rate 15 03/30/21 11:30 Blood Pressure 128/74 03/30/21 11:30 Pulse Oximetry 96 03/30/21 11:30 Course Orders Ordered: Discontinued Medications Diphtheria/Tetanus/Acell Pertussis (Tet,Diph,Pertuss(Acell),Vac/Pf 0.5 Ml Syringe) 0.5 ml IM .ONCE ONE Stop: 03/30/21 13:16 Last Admin: 03/30/21 13:33 Dose: 0.5 ml Documented by: KBRYERS Vital Signs Vital signs: Vital Signs - 8 hr 03/30/21 14:04 Pulse Rate 70 Respiratory Rate 16 Blood Pressure 120/70 Pulse Oximetry 97 MDM - Recheck/Abnormal Lab/Rx MDM Narrative Medical decision making narrative: This is a 70-year-old male who comes for recheck with senile purpura which is still present and does not appear changed. He does have abrasion on his wrist which is new from his last visit. Does not appear infected at this time. Tetanus was updated as he was unsure of his last tetanus. Patient would like to leave at this time and has no additional concerns or questions. Discharge Plan Departure Patient Disposition: Home Clinical Impression: Senile purpura, Abrasion of right wrist Activity Restrictions/Additional Instructions: He may continue home medications as prescribed. Your senile purpura on your hands appears stable. I do appreciate the wound on your right wrist and recommend good wound. Your tetanus was updated today. Please return if your wound appears to be infected. Wound Care: Keep wound(s) clean and dry. Wash daily with soap and water only. Do not use over the counter products (alcohol or peroxide)on the wounds unless instructed by a physician. If wound condition worsens (increased/expanding redness, developing fluid blisters, or worsening pain), either contact your doctor for an urgent re-ass essment , or return to the Emergency Department. Return to the Emergency Department for any new or worsening symptoms. Return if fever greater than 100.4 Fahrenheit, increased swelling, increasing pa in or worsening symptoms such as increased discharge or spreading redness. Prescriptions: No Action amlodipine 10 mg tablet 10 mg PO DAILY Qty: 30 RF: 0 cephalexin 250 mg Capsule 500 mg PO TID Qty: 18 RF: 0 prednisone 50 mg tablet 50 mg PO DAILY Qty: 5 RF: 0 mupirocin 2 % ointment 1 applic topical BID Qty: 15 RF: 0 mupirocin 2 % ointment 1 applic topical BID Qty: 15 RF: 0 hydrochlorothiazide 25 mg tablet 25 mg PO DAILY Qty: 14 RF: 0 hydrochlorothiazide 25 mg tablet 25 mg PO DAILY Qty: 30 RF: 0 hydrochlorothiazide 25 mg tablet 25 mg PO DAILY Qty: 30 RF: 0 mupirocin 2 % ointment 1 applic topical BID Qty: 15 RF: 0 mupirocin 2 % ointment 1 applic topical BID Qty: 15 RF: 0
[2021-03-30] MEDS: TET,DIPH,PERTUSS(ACELL),VAC/PF 0.5 ML SYRINGE IM (13:33)
[2021-03-30 14:04] VITALS: BP 120/70; PULSE 70; RESP 16; O2SAT 97
== END 2021-03-30 14:04 | disposition home or self-care (01) ==
PROVIDERS: Emergency Provider Emergency Medicine
DX: D69.2 Other nonthrombocytopenic purpura (principal); S60.811A Abrasion of right wrist, initial encounter; Z23 Encounter for immunization
CPT/HCPCS: 90471; 99283; 90715

== ENCOUNTER 2021-05-08 07:33 | Emergency (ER) | payer MEDICARE, SELFPAY ==
[2020-05-16 13:43] VITALS: BMI 33.7
[2021-05-08 07:49] VITALS: BP 118/99; PULSE 77; RESP 18; TEMP 36.6; O2SAT 99
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
== END 2021-05-08 08:22 | disposition home or self-care (01) ==
PROVIDERS: Emergency Provider Emergency Medicine
DX: R06.00 Dyspnea, unspecified (principal); L98.429 Non-pressure chronic ulcer of back with unspecified severity
CPT/HCPCS: 87070; 87077; 87147; 87186; 87205; 99281; 99282

== ENCOUNTER 2021-05-27 11:56 | Emergency (ER) | payer MEDICARE, SELFPAY ==
[2020-05-16 13:43] VITALS: BMI 33.7
[2021-05-27 12:12] VITALS: BP 113/86; PULSE 63; RESP 18; TEMP 36.4; O2SAT 98
--- NOTE | 2021-05-27 12:19 | ED_ITS ---
HPI - Wound/Laceration General Chief Complaint: Recheck/Abnormal Lab/Rx Stated Complaint: Returning for follow up Time Seen by Provider: 05/27/21 12:14 History of Present Illness HPI narrative: Male who presents with need for refill of antibiotics and wound re-evaluation. He was seen and evaluated here on May 08 for a wound on his left leg. He was started on Bactrim he finished his course of antibiotics. He is concerned that he might need more antibiotics he thought he was supposed to be on it longer. He says the wound itself has healed. He had an episode of stool incontinence and does have stool on his leg. He states he does have access to soap and water but lives in his car. He denies any fever or chills. He did not follow-up with a primary care provider Related Data Previous Rx's Medication Instructions Recorded amlodipine 10 mg tablet 10 mg PO DAILY #30 tab 05/16/20 cephalexin 250 mg capsule 500 mg PO TID #18 cap 05/16/20 hydrochlorothiazide 25 mg tablet 25 mg PO DAILY #14 tab 06/07/20 prednisone 50 mg tablet 50 mg PO DAILY #5 tab 08/10/20 hydrochlorothiazide 25 mg tablet 25 mg PO DAILY #30 tab 08/12/20 hydrochlorothiazide 25 mg tablet 25 mg PO DAILY #30 tab 08/15/20 mupirocin 2 % topical ointment 1 applic TOPICAL BID #15 g 08/29/20 mupirocin 2 % topical ointment 1 applic TOPICAL BID #15 g 08/29/20 mupirocin 2 % topical ointment 1 applic TOPICAL BID #15 g 11/16/20 mupirocin 2 % topical ointment 1 applic TOPICAL BID #15 g 11/16/20 Allergies Allergy/AdvReac Type Severity Reaction Status Date / Time No Known Drug Allergies Allergy Verified 03/30/21 11:34 Review of Systems Review of Systems Narrative: GENERAL: Denies chills,fever HEENT: Denies throat pain RESPIRATORY: Denies dyspnea, cough, wheezing CARDIOVASCULAR: Denies chest pain, palpitations GASTROINTESTINAL: Denies nausea, vomiting MUSCULOSKELETAL: Denies extremity pain, injury SKIN: See HPI NEUROLOGIC: Denies weakness, dizziness, headache, numbness 8 point review of systems is negative except for those stated above and HPI Patient History Medical History (Updated 05/27/21 @ 12:27 by Gina Vega DO) Cellulitis of left leg Congestive heart failure Elevated troponin Hypertension Surgical History No pertinent past surgical history Social History household members: other housing: other occupational status: unemployed Smoking Status: Former smoker alcohol intake: current additional social history: Lives in a hotel Smoking Status: Former smoker alcohol intake frequency: other Substance Use Type: does not use Exam Initial Vital Signs Initial Vital Signs: Vital Signs Temperature 97.6 F 05/27/21 12:12 Pulse Rate 63 05/27/21 12:12 Respiratory Rate 18 05/27/21 12:12 Blood Pressure 113/86 05/27/21 12:12 Pulse Oximetry 98 05/27/21 12:12 GENERAL: Dishevelled 70-year-old male CARDIOVASCULAR: peripheral pulses in tact, cap refill <2 sec RESPIRATORY: No respiratory distress, speaks in full sentences without difficulty EXTREMITIES: Normal range of motion, no clubbing. +2 pitting edema bilaterally. Neurovascularly intact NEUROLOGICAL: Cranial nerves II through XII grossly intact. Normal gait and speech. SKIN: Wound noted on left posterior leg scabbed over no surrounding erythema or drainage. He is noted to have dry stool on his legs. Course Vital Signs Vital signs: Vital Signs - 8 hr 05/27/21 12:12 Temperature 97.6 F Pulse Rate 63 Respiratory Rate 18 Blood Pressure 113/86 Pulse Oximetry 98 MDM - Wound/Laceration MDM Narrative Medical decision making narrative: At this time patient does not need any further antibiotics. He has been given washcloth and soap to help keep clean. I strongly encouraged him to get follow-up with primary care provider. At this time he does have lower extremity edema without signs of congestive heart failure. There are not any more swollen than normal according to him. Discharge Plan Departure Patient Disposition: Home Clinical Impression: Worried well Instructions: Cellulitis Activity Restrictions/Additional Instructions: At this time your wound does not need any more antibiotics. However you should keep it clean and dry. We have provided you with a washcloth and soap. Please call to get set up with a primary care provider so that he can be followed and restarted on appropriate medications for your conditions. Return to the emergency department if you have any new or worsening symptoms that include but not limited to, increasing redness, swelling, pain or fever Prescriptions: No Action amlodipine 10 mg tablet 10 mg PO DAILY Qty: 30 RF: 0 cephalexin 250 mg Capsule 500 mg PO TID Qty: 18 RF: 0 prednisone 50 mg tablet 50 mg PO DAILY Qty: 5 RF: 0 mupirocin 2 % ointment 1 applic topical BID Qty: 15 RF: 0 mupirocin 2 % ointment 1 applic topical BID Qty: 15 RF: 0 hydrochlorothiazide 25 mg tablet 25 mg PO DAILY Qty: 14 RF: 0 hydrochlorothiazide 25 mg tablet 25 mg PO DAILY Qty: 30 RF: 0 hydrochlorothiazide 25 mg tablet 25 mg PO DAILY Qty: 30 RF: 0 mupirocin 2 % ointment 1 applic topical BID Qty: 15 RF: 0 mupirocin 2 % ointment 1 applic topical BID Qty: 15 RF: 0 Referrals: [facility] [Outside]
== END 2021-05-27 12:42 | disposition home or self-care (01) ==
PROVIDERS: Emergency Provider Emergency Medicine
DX: S81.802A Unspecified open wound, left lower leg, initial encounter (principal)
CPT/HCPCS: 99281

== ENCOUNTER 2021-06-07 17:14 | Emergency (ER) | payer MEDICARE, SELFPAY ==
[2020-05-16 13:43] VITALS: BMI 33.7
[2021-06-07 17:22] VITALS: BP 167/87; PULSE 74; RESP 16; TEMP 37.1; O2SAT 97; BMI 29.0
--- NOTE | 2021-06-07 17:22 | DI.RAD.S_ITS ---
PROCEDURE: XR ANKLE RT MIN 3V INDICATIONS: injury TECHNIQUE: 3 views of the ankle were acquired. COMPARISON: None. FINDINGS: Bones: No fractures or dislocations. Ankle mortise is normally aligned. No suspicious bony lesions. Small calcaneal spur noted Soft tissues: No tibiotalar joint effusion. Achilles tendon appears normal. Generalized soft tissue swelling present without radiopaque foreign body. IMPRESSION: Soft tissue swelling without fracture or foreign body Approved by: Devonte Dietz M.D. on 06/07/2021 at 17:01
--- NOTE | 2021-06-15 14:41 | ED.LOWEXIN ---
HPI - Extremity Injury (Lower) <Osmani Calhoun PA-C - Last Filed: 07/15/21 21:30> General Chief Complaint: Extremity Injury, Lower Stated Complaint: Possible sprained ankle Time Seen by Provider: 06/07/21 18:30 Source: patient Mode of arrival: Ambulatory Related Data Home Medications Medication Instructions Recorded Confirmed melatonin 10 mg tablet 10 mg PO BEDTIME PRN 06/24/21 06/24/21 Previous Rx's Medication Instructions Recorded amlodipine 10 mg tablet 10 mg PO DAILY #30 tab 07/02/21 aspirin 81 mg tablet,delayed 81 mg PO BID 42 Days #84 tab 07/02/21 release ibuprofen 400 mg tablet 400 mg PO Q6H PRN #30 tab 07/02/21 metoprolol succinate 100 mg 100 mg PO DAILY #30 tab 07/02/21 tablet,extended release 24 hr sennosides 8.6 mg tablet (senna) 17.2 mg PO BID #60 tab 07/02/21 acetaminophen 325 mg capsule 650 mg PO Q6H PRN #30 cap 07/13/21 Allergies Allergy/AdvReac Type Severity Reaction Status Date / Time No Known Drug Allergies Allergy Verified 07/21/21 18:34 Patient History <Osmani Calhoun PA-C - Last Filed: 07/15/21 21:30> Medical History Cellulitis of left leg Congestive heart failure Elevated troponin Essential hypertension Hypertension Surgical History No pertinent past surgical history Family History Mother Hypertension Sister Hypertension Social History household members: none housing: other occupational status: unemployed Smoking Status: Current every day smoker alcohol intake: current additional social history: Lives in a hotel Smoking Status: Former smoker alcohol intake frequency: other Substance Use Type: does not use Exam <Osmani Calhoun PA-C - Last Filed: 07/15/21 21:30> Initial Vital Signs Initial Vital Signs: Vital Signs Temperature 98.7 F 06/07/21 17:22 Pulse Rate 74 06/07/21 17:22 Respiratory Rate 16 06/07/21 17:22 Blood Pressure 167/87 H 06/07/21 17:22 Pulse Oximetry 97 06/07/21 17:22 <DO Param Cross Last Filed: 07/25/21 07:12> Initial Vital Signs Initial Vital Signs: Vital Signs Temperature 98.7 F 06/07/21 17:22 Pulse Rate 74 06/07/21 17:22 Respiratory Rate 16 06/07/21 17:22 Blood Pressure 167/87 H 06/07/21 17:22 Pulse Oximetry 97 06/07/21 17:22 Discharge Plan Departure Patient Disposition: Left Without Being Seen Clinical Impression: Patient left without being seen <DO Param Cross Last Filed: 07/25/21 07:12> Cosign ED Attending Cosignature Attestation: patient left without being seen.
== END 2021-06-07 18:33 | disposition left against medical advice (07) ==
PROVIDERS: Emergency Provider Student in an Organized Health Care Education/Training Program
DX: S99.911A Unspecified injury of right ankle, initial encounter (principal)
CPT/HCPCS: 73610; 99283

== ENCOUNTER 2021-06-24 17:46 | Inpatient (IN) | payer MEDICARE, SELFPAY ==
[2020-05-16 13:43] VITALS: BMI 33.7
[2021-06-24] VITALS (8 sets, daily range): BP systolic 136–150; BP diastolic 69–113; PULSE 91–110; RESP 16–30; TEMP 36.3–36.8; O2SAT 95–98; BMI 30.3; BMI 29.3
--- NOTE | 2021-06-24 18:14 | ED.FALL ---
HPI - Fall General Chief Complaint: Fall Stated Complaint: GLF Time Seen by Provider: 06/24/21 18:14 Source: EMS Mode of arrival: EMS Limitations: no limitations History of Present Illness HPI Narrative: This is a 70-year-old male who comes to the emergency department with complaint of ground level fall. Patient is without housing he currently lives in his vehicle. He was at the local grocery store and states that he slipped in the rain and fell on his buttocks. He does have some ?butt pain? but denies any other new injuries. He does appreciate some weakness in his left leg compared to his other side he is lability about onset but states maybe when he got into the EMS rig. It was noted that his oxygen level was but he was out in the rain in his fingers were quite wound cold initially and here in the emergency department are appropriate. Patient states he is supposed to be on a water pill. He takes it once weekly. He denies any other daily medications. He does have chronic bilateral lower extremity swelling which he states is stable. Patient denies any head injury. He denies any neck or back pain. He denies any chest pain or shortness of breath. No nausea or vomiting. No new numbness, tingling in any of his extremities. He denies any other new weakness on the left upper extremity. No difficulty with speech or collecting his thoughts. Patient denies any blood thinners. Related Data Home Medications Medication Instructions Recorded Confirmed melatonin 10 mg tablet 10 mg PO BEDTIME PRN 06/24/21 06/24/21 Allergies Allergy/AdvReac Type Severity Reaction Status Date / Time No Known Drug Allergies Allergy Verified 03/30/21 11:34 Review of Systems Review of Systems ROS Unobtainable: All systems reviewed & are unremarkable except as noted in HPI and below Patient History Medical History (Updated 06/24/21 @ 23:01 by KEV Hargrove) Cellulitis of left leg Congestive heart failure Elevated troponin Essential hypertension Hypertension Surgical History No pertinent past surgical history Social History household members: none housing: other occupational status: unemployed Smoking Status: Current every day smoker alcohol intake: current additional social history: Lives in a hotel Smoking Status: Former smoker alcohol intake frequency: other Substance Use Type: does not use Exam Narrative Exam Narrative: GEN: Patient appears in male distress. HEAD: No evidence of trauma, no raccoon/Almaguer sign. NECK: Nontender, painless range of motion, trachea midline Negative Nexus criteria, there is no line tenderness, distracting injury, altered mental status, neuro deficit, recent EtOH. EYES: PERRLA, EOMI ENT: External inspection normal, trachea is midline, TM's are normal no hemotypanum, Nares are clear, no septal hematoma, no dental or oral injury, airway is normal and with normal occlusion, No bony tenderness RESP: Chest is nontender and has symmetric movement, no ecchymosis, breath sounds are normal no crackles, wheezes or rales CVS: Heart sounds are normal, no murmur noted, No JVD. ABG/GI: Nontender, soft, normal bowel sounds, no distention, no organomegaly, pelvic rock is negative NEURO: Oriented AOx3, neuro is grossly intact, sensation and motor is normal all 4 extremities moving, cranial nerves II through XII are intact, GCS is 15 PSYCH: Normal mood and affect SKIN: Intact, warm and dry, no crepitus and without decubitus BACK: No CVA tenderness, no vertebral tenderness, no step-off's, no crepitus EXT: Atraumatic, hips are nontender, patient has bilateral lower extremity edema, Patient has normal range upper extremities. He has some weakness in bilateral lower extremities but he is able to lift his right lower extremity off the bed which he states is his normal level of strength. He has ability to lift his left leg states it seems harder on that side. Patient does have some erythema and skin breakdown bilateral ankles but no extensive cellulitis appreciated. Initial Vital Signs Initial Vital Signs: Vital Signs Temperature 97.3 F L 06/24/21 18:12 Pulse Rate 110 H 06/24/21 18:12 Respiratory Rate 16 06/24/21 18:12 Blood Pressure 136/87 06/24/21 18:12 Pulse Oximetry 98 06/24/21 18:12 Scores GCS [place] coma scale eye opening: Spontaneous [place] coma scale verbal response: Orientated [place] coma scale motor response: Obey commands Isadora coma scale total score: 15 NIH Stroke Scale Level of Conciousness: Alert, keenly responsive Ask month/age: Answers both questions correctly. Open/close eyes, close hand: Performs both tasks correctly Best gaze horizontal: Normal Visual leal: No visual loss Facial palsy: Normal symetrical movement Left arm drift: No drift for full 10 sec Right arm drift: No drift for full 10 sec Left leg drift: No drift for full 5 sec Right leg drift: No drift for full 5 sec Limb ataxia: Present in one limb Sensory on face/arms/legs: Normal, no sensory loss Best language: No aphasia, normal Dysarthria: Normal Extinction or inattention: No abnormality Total NIH Stroke scale score: 1 Course Orders Ordered: ED Orders 06/24/21 18:22 CT head/brain wo con Stat XR chest 1V Stat XR pelvis 1-2V Stat 06/24/21 18:23 Partial Thromboplastin Time Stat Prothrombin Time INR Stat 06/24/21 19:35 COVID19 - ADMIT ([employer] swab/PCR) Stat 06/24/21 19:49 Urine Drug Screen, Rapid Stat 06/24/21 20:55 Basic Metabolic Panel Stat Complete Blood Count AUTO DIFF Stat Ethanol (ETOH) Stat Magnesium Urgent NT-proBNP (BNP-Adult 18+) Stat Procalcitonin Urgent Troponin & CK Cardiac Panel Stat 06/24/21 21:52 Education, smoking cessation ONGOING 06/24/21 21:57 Hemoglobin A1C% w Est Avg Glu Urgent 06/24/21 22:01 Consult to Physician Routine 06/24/21 22:17 Urinalysis and Microscopic Urgent 06/25/21 05:00 Basic Metabolic Panel Routine Complete Blood Count AUTO DIFF DAILY NT-proBNP (BNP-Adult 18+) Routine Partial Thromboplastin Time Routine Prothrombin Time INR Routine 06/26/21 05:00 Complete Blood Count AUTO DIFF DAILY 06/27/21 05:00 Complete Blood Count AUTO DIFF DAILY Amlodipine Besylate (Amlodipine 5 Mg Tablet) 10 mg PO DAILY ZOILA Last Admin: 06/24/21 23:15 Dose: 10 mg Documented by: GRIS Dextrose (Dextrose 50 % In Water 25 Gm/50 Ml Syringe) 25 gm IV PRN PRN PRN Reason: Hypoglycemia Hydromorphone HCl (Hydromorphone 0.5 Mg Inj) 0.5 mg IV Q6H PRN PRN Reason: Pain, Severe (7-10) Lactated Ringer's (Lactated Ringers) 1,000 mls @ 60 mls/hr IV CONT ZOILA Last Admin: 06/24/21 23:12 Dose: 60 mls/hr Documented by: GRIS Influenza Virus Vaccine (Influenza Hd Vaccine 0.7 Ml Syringe) 0.7 ml IM .ONCE ONE Stop: 06/26/21 09:01 Insulin Human Lispro (Insulin Lispro 100 Unit/Ml 3ml Vial) 0 unit SUBCUT ACHS ZOILA; Protocol Morphine Sulfate (Morphine 2 Mg/Ml Inj) 2 mg IV Q4HR PRN PRN Reason: Pain, Moderate (4-6) Naloxone HCl (Naloxone 0.4 Mg/Ml Vial) 0.2 mg IV Q2MIN PRN PRN Reason: Opiate Reversal Ondansetron HCl (Ondansetron 4 Mg/2 Ml Inj) 4 mg IV Q8HR PRN PRN Reason: Nausea And Vomiting Last Admin: 06/24/21 22:42 Dose: 4 mg Documented by: GRIS Sodium Chloride (Sodium Chloride 0.9% Flush) 10 ml IV PRN PRN PRN Reason: Flush Sodium Chloride (Sodium Chloride 0.9% Flush) 10 ml IV BID ZOILA Discontinued Medications Morphine Sulfate (Morphine 2 Mg/Ml Inj) 2 mg IV NOW ONE Stop: 06/24/21 21:18 Last Admin: 06/24/21 21:23 Dose: 2 mg Documented by: WILFREDO Consultations Consultation #1: Dr. Mena is happy to see. She does request patient be admitted to Medicine. Consultation #2: PAPITO Vizcaino, accepts for admission. Platelets pending all other labs completed. Vital Signs Vital signs: Vital Signs - 8 hr 06/24/21 18:12 06/24/21 18:50 06/24/21 20:35 Temperature 97.3 F L Pulse Rate 110 H 91 H 95 H Respiratory Rate 16 21 Blood Pressure 136/87 Pulse Oximetry 98 98 06/24/21 21:00 06/24/21 21:23 06/24/21 21:37 Temperature Pulse Rate 94 H 97 H 91 H Respiratory Rate Blood Pressure 143/69 H Pulse Oximetry 98 98 97 06/24/21 21:52 Temperature Pulse Rate Respiratory Rate Blood Pressure Pulse Oximetry 96 MDM - Fall Lab Data Result diagrams: 06/24/21 20:55 06/24/21 20:55 Labs: Lab Results 09/26/21 09/26/21 09/26/21 Range/Units 19:35 19:49 20:55 WBC 17.8 H (4.5-11.0) X10^3/uL RBC 5.09 (4.5-5.9) X10^6/uL Hgb 16.5 (13.5-17.5) g/dL Hct 49.1 (41-53) % MCV 96.3 (80-100) fL MCH 32.4 (26-34) PG MCHC 33.5 (30-36) % RDW 14.0 (11.6-14.8) % Plt Count Not Reportable Neut % (Auto) Not Reportable Lymph % (Auto) Not Reportable [place] % (Auto) Not Reportable Eos % (Auto) Not Reportable Baso % (Auto) Not Reportable Lymph # (Auto) Not Reportable [place] # (Auto) Not Reportable Baso # (Auto) Not Reportable Total Counted 100 Seg Neutrophils % 83.0 H (38-70) % Band Neutrophils % 7.0 (3-7) % Lymphocytes % (Manual) 7.0 L (25-45) % Monocytes % (Manual) 2.0 (2-11) % Eosinophils % (Manual) 1.0 L (2-4) % Neutrophils # (Manual) 97145 H (2399-1202) /uL Platelet Estimate Adequate on smear RBC Morphology Normal morphology Sodium (137-145) mmol/L Potassium (3.4-5.1) mmol/L Chloride (98-107) mmol/L Carbon Dioxide (22-32) mmol/L BUN (9-20) mg/dL Creatinine (0.66-1.25) mg/dL Estimated GFR (>60) mL/min BUN/Creatinine Ratio (6-22) Glucose (80-110) mg/dL Calcium (8.4-10.2) mg/dL Magnesium (1.6-2.3) mg/dL Total Creatine Kinase (55-170) U/L CK-MB (CK-2) CK-MB (CK-2) Rel Index Troponin I (0.01-0.034) ng/mL NT-Pro-B Natriuret Pep (<125) pg/mL Procalcitonin (<0.5) ng/mL U Opiates 300ng/mL cut Negative (Negative) Ur Oxycodone Screen Negative (Negative) Urine Methadone Screen Negative (Negative) Ur Barbiturates Screen Negative (Negative) U Tricyclic Antidepress Negative (Negative) Ur Phencyclidine Scrn Negative (Negative) Ur Amphetamines Screen Negative (Negative) U Methamphetamines Scrn Negative (Negative) Ur MDMA Scrn (Ecstasy) Negative (Negative) U Benzodiazepines Scrn Negative (Negative) Urine Cocaine Screen Negative (Negative) U Marijuana (THC) Screen Negative (Negative) Ethyl Alcohol ( - 10) mg/dL SARS-CoV-2 (PCR) Negative (Negative) 06/24/21 06/24/21 06/24/21 Range/Units 20:55 20:55 20:55 WBC (4.5-11.0) X10^3/uL RBC (4.5-5.9) X10^6/uL Hgb (13.5-17.5) g/dL Hct (41-53) % MCV (80-100) fL MCH (26-34) PG MCHC (30-36) % RDW (11.6-14.8) % Plt Count Neut % (Auto) Lymph % (Auto) [place] % (Auto) Eos % (Auto) Baso % (Auto) Lymph # (Auto) [place] # (Auto) Baso # (Auto) Total Counted Seg Neutrophils % (38-70) % Band Neutrophils % (3-7) % Lymphocytes % (Manual) (25-45) % Monocytes % (Manual) (2-11) % Eosinophils % (Manual) (2-4) % Neutrophils # (Manual) (0259-0242) /uL Platelet Estimate RBC Morphology Sodium 140 (137-145) mmol/L Potassium 4.2 (3.4-5.1) mmol/L Chloride 104 (98-107) mmol/L Carbon Dioxide 33 H (22-32) mmol/L BUN 21 H (9-20) mg/dL Creatinine 0.71 (0.66-1.25) mg/dL Estimated GFR > 60.0 (>60) mL/min BUN/Creatinine Ratio 29.6 H (6-22) Glucose 101 (80-110) mg/dL Calcium 9.8 (8.4-10.2) mg/dL Magnesium 2.3 (1.6-2.3) mg/dL Total Creatine Kinase 43 L (55-170) U/L CK-MB (CK-2) TNP CK-MB (CK-2) Rel Index TNP Troponin I < 0.012 (0.01-0.034) ng/mL NT-Pro-B Natriuret Pep 1050 H (<125) pg/mL Procalcitonin 0.03 (<0.5) ng/mL U Opiates 300ng/mL cut (Negative) Ur Oxycodone Screen (Negative) Urine Methadone Screen (Negative) Ur Barbiturates Screen (Negative) U Tricyclic Antidepress (Negative) Ur Phencyclidine Scrn (Negative) Ur Amphetamines Screen (Negative) U Methamphetamines Scrn (Negative) Ur MDMA Scrn (Ecstasy) (Negative) U Benzodiazepines Scrn (Negative) Urine Cocaine Screen (Negative) U Marijuana (THC) Screen (Negative) Ethyl Alcohol < 10 ( - 10) mg/dL SARS-CoV-2 (PCR) (Negative) Urine Dip Bedside Urine Glucose Negative Bedside Urine Bilirubin - Negative Bedside Urine Ketone +/- 5 Urine Specific [place] 1.20 Bedside Urine Occult Blood - Negative Bedside Urine pH 6.0 Bedside Urine Protein +/- 15 Bedside Urine Urobilinogen - Negative Bedside Urine Nitrite - Negative Bedside Urine Leukocytes - Negative Esterase Imaging Data CT scan - head: Radiologist's Impression: [place] [address] CT Scan Report Signed Patient: Rayo Estrada MR#: [id number] : 1950 Acct:[id number] Age/Sex: 70 / M Date of Service: 06/24/21 Loc: ED Accession Number: [id number] ?? Procedure: CT head/brain wo con Ordering Provider: Adwoa Enamorado D.O. PROCEDURE:? CT HEAD/BRAIN WO CON ? INDICATIONS:? fall, weakness left leg ? TECHNIQUE:? Noncontrast 4.5 mm thick angled axial sections acquired from the foramen magnum to the vertex, with coronal and sagittal reformats.? For radiation dose reduction, the following was used:? automated exposure control, adjustment of mA and/or kV according to patient size.? ? COMPARISON:? [facility], CT, CT HEAD/BRAIN WO CON, 05/13/2020, 8:55. ? FINDINGS:? Image quality:? There is mild motion artifact slightly limiting evaluation.? ? CSF spaces:? Basal cisterns are patent.? No extra-axial fluid collections.? The ventricles are symmetric in size and shape.? There is moderate cerebral volume loss, with resultant ventricular and sulcal prominence.? ? Brain:? No definite intracranial hemorrhage, mass, or mass effect.? There are subcortical, periventricular and deep white matter hypodensities consistent with moderate chronic small vessel ischemic changes.? The mcknight-white matter junction appears preserved. ?There is intracranial internal carotid artery atherosclerosis.? ? Skull and face:? Calvarium and visualized facial bones are intact, without suspicious lesions.? ? Sinuses:? Visualized sinuses and mastoids are clear.? ? IMPRESSION:? ? 1. No definite acute intracranial abnormality. ? 2. Moderate cerebral volume loss and chronic white matter small vessel ischemic changes.? Dictated by: Sean Fox M.D. on 06/24/2021 at 20:45 ? ? Approved by: Sean Fox M.D. on 06/24/2021 at 20:47? Chest x-ray: Radiologist's Impression: [place] [address] XRay Report Signed Patient: Rayo Estrada MR#: [id number] : 1950 Acct:[id number] Age/Sex: 70 / M Date of Service: 06/24/21 Loc: ED Accession Number: [id number] ?? Procedure: XR chest 1V Ordering Provider: Adwoa Enamorado D.O. PROCEDURE:? XR CHEST 1V ? INDICATIONS:? fall ? TECHNIQUE:? One view of the chest was acquired.? ? COMPARISON:? [facility], , XR CHEST 1V, 08/12/2020, 11:11. ? FINDINGS:? ? Surgical changes and devices:? None.? ? Lungs and pleura:? Lungs are clear.? No pleural effusions or pneumothorax.? ? Mediastinum:? Mediastinal contours appear normal.? Heart size is normal.? ? Bones and chest wall:? No acute displaced fractures.? There is an old healed right rib fracture No suspicious bony lesions.? Overlying soft tissues appear unremarkable.? ? IMPRESSION:? ? 1.? No definite acute traumatic abnormality. ? ? ? Dictated by: Sean Fox M.D. on 06/24/2021 at 19:15 ? ? Approved by: Sean Fox M.D. on 06/24/2021 at 19:16? pelvic xray: Radiologist's Impression: [address] [address] XRay Report Signed Patient: Rayo Estrada MR#: [id number] : 1950 Acct:[id number] Age/Sex: 70 / M Date of Service: 06/24/21 Loc: ED Accession Number: [id number] ?? Procedure: XR pelvis 1-2V Ordering Provider: Adwoa Enamorado D.O. PROCEDURE:? XR HIP W PEL IF DONE LT 2V ? INDICATIONS:? fall ? TECHNIQUE:? AP pelvis with lateral view of the left hip. ? COMPARISON:? None. ? FINDINGS:? ? Bones:? There is a subcapital fracture of the left femoral neck with mild impaction. No dislocation.? ? Soft tissues:? The visualized bowel gas pattern is normal.? No suspicious soft tissue calcifications.? ? ? IMPRESSION:? ? 1. Left femoral neck fracture.? ? ? Dictated by: Sean Fox M.D. on 06/24/2021 at 19:10 ? ? Approved by: Sean Fox M.D. on 06/24/2021 at 19:15?? ECG Data Attestation: I personally reviewed and interpreted this ECG as follows: Interpretation: Rate of 99 QRS of 110 QTC of 47. AFib, nonspecific T-wave. Prolonged QT. Prior EKGS appear to be sinus rhythm. No new ST changes appreciated. MDM Narrative Medical decision making narrative: This is a 70-year-old male who comes to emergency department with complaint of ground level fall. Patient states he has pain in his buttocks. He states he feels like he is having some hard time lifting his left leg but denies any pain into his leg, hip. Patient states he did not hit his head. He initially was concerning for stroke but pelvic x-ray did show a left hip fracture which is likely the cause of his weakness. Chest x-ray and head CT were negative. White count is 17, his CBC otherwise normal with a leftward shift. Platelets were still pending. Patient's renal function appears stable, troponin was negative with normal electrolytes and a CO2 of 33 and a BUN of 21. Patient's urine shows moderate bacteria. Urine tox and ETOH are negative with a negative COVID swab. I spoke with Dr. Mena who is happy to see the patient but asked for medicine to admit the patient as he does some untreated or incompletely treated cardiac issues. I spoke with PAPITO Vizcaino who accepts for admission. It was noted that initially patient was hypoxic with EMS but I suspect this was more from being in the rain and cold and having vasoconstriction in his fingers as his O2 was appropriate here in the department through his stay Discharge Plan Departure Patient Disposition: Admitted As Inpatient Clinical Impression: Closed hip fracture Admit Date/Time: 06/24/21 22:11 Admit Provider: Cindy Vizcaino
--- NOTE | 2021-06-24 18:22 | DI.RAD.S_ITS ---
PROCEDURE: XR CHEST 1V INDICATIONS: fall TECHNIQUE: One view of the chest was acquired. COMPARISON: [facility], CR, XR CHEST 1V, 08/12/2020, 11:11. FINDINGS: Surgical changes and devices: None. Lungs and pleura: Lungs are clear. No pleural effusions or pneumothorax. Mediastinum: Mediastinal contours appear normal. Heart size is normal. Bones and chest wall: No acute displaced fractures. There is an old healed right rib fracture No suspicious bony lesions. Overlying soft tissues appear unremarkable. IMPRESSION: 1. No definite acute traumatic abnormality. Dictated by: Sean Fox M.D. on 06/24/2021 at 19:15 Approved by: Sean Fox M.D. on 06/24/2021 at 19:16
--- NOTE | 2021-06-24 18:22 | DI.CT.S_ITS ---
PROCEDURE: CT HEAD/BRAIN WO CON INDICATIONS: fall, weakness left leg TECHNIQUE: Noncontrast 4.5 mm thick angled axial sections acquired from the foramen magnum to the vertex, with coronal and sagittal reformats. For radiation dose reduction, the following was used: automated exposure control, adjustment of mA and/or kV according to patient size. COMPARISON: [facility], CT, CT HEAD/BRAIN WO CON, 05/13/2020, 8:55. FINDINGS: Image quality: There is mild motion artifact slightly limiting evaluation. CSF spaces: Basal cisterns are patent. No extra-axial fluid collections. The ventricles are symmetric in size and shape. There is moderate cerebral volume loss, with resultant ventricular and sulcal prominence. Brain: No definite intracranial hemorrhage, mass, or mass effect. There are subcortical, periventricular and deep white matter hypodensities consistent with moderate chronic small vessel ischemic changes. The mcknight-white matter junction appears preserved. There is intracranial internal carotid artery atherosclerosis. Skull and face: Calvarium and visualized facial bones are intact, without suspicious lesions. Sinuses: Visualized sinuses and mastoids are clear. IMPRESSION: 1. No definite acute intracranial abnormality. 2. Moderate cerebral volume loss and chronic white matter small vessel ischemic changes. Dictated by: Sean Fox M.D. on 06/24/2021 at 20:45 Approved by: Sean Fox M.D. on 06/24/2021 at 20:47
--- NOTE | 2021-06-24 18:22 | DI.RAD.S_ITS ---
PROCEDURE: XR HIP W PEL IF DONE LT 2V INDICATIONS: fall TECHNIQUE: AP pelvis with lateral view of the left hip. COMPARISON: None. FINDINGS: Bones: There is a subcapital fracture of the left femoral neck with mild impaction. No dislocation. Soft tissues: The visualized bowel gas pattern is normal. No suspicious soft tissue calcifications. IMPRESSION: 1. Left femoral neck fracture. Dictated by: Saen Fox M.D. on 06/24/2021 at 19:10 Approved by: Sean Fox M.D. on 06/24/2021 at 19:15
[2021-06-24 20:23] LABS: UR Morphine/Opiate cutoff 300 Negative (Negative); Ur Creatinine Normal (Normal); Ur Specific Gravity Normal (Normal); Urine Amphetamines Negative (Negative); Urine Barbiturates Negative (Negative); Urine Benzodiazepines Negative (Negative); Urine Cocaine Negative (Negative); Urine MDMA Negative (Negative); Urine Methadone Negative (Negative); Urine Methamphetamines Negative (Negative); Urine Oxycodone Negative (Negative); Urine Phencyclidine Negative (Negative); Urine Tetrahydrocannabinol Negative (Negative); Urine Tricyclic Antidepressant Negative (Negative); Urine pH Normal (Normal)
[2021-06-24 20:30] LABS: COVID19 - ADMIT (NP swab/PCR) Negative (Negative)
[2021-06-24] MEDS: MORPHINE 2 MG/ML INJ IV (21:23)
[2021-06-24 21:25] LABS: BUN Creatinine Ratio 29.6 (6-22); Blood Urea Nitrogen 21 mg/dL (9-20); Calcium 9.8 mg/dL (8.4-10.2); Carbon Dioxide 33 mmol/L (22-32); Chloride 104 mmol/L (98-107); Creatine Kinase 43 U/L (55-170); Estimated Glomerular Filt Rate > 60.0 mL/min (>60); Ethanol (ETOH) < 10 mg/dL; Glucose 101 mg/dL (80-110); HEMOLYSIS 18 (0-50); Potassium 4.2 mmol/L (3.4-5.1); Sodium 140 mmol/L (137-145)
[2021-06-24 21:29] LABS: Add Manual Diff / Slide Review YES; Hematocrit 49.1 % (41-53); Hemoglobin 16.5 g/dL (13.5-17.5); Mean Corpuscular HGB Conc 33.5 % (30-36); Mean Corpuscular Hemoglobin 32.4 PG (26-34); Mean Corpuscular Volume 96.3 fL (80-100); Red Blood Cell Count 5.09 X10^6/uL (4.5-5.9); White Blood Cell Count 17.8 X10^3/uL (4.5-11.0)
[2021-06-24 21:37] LABS: Troponin I < 0.012 ng/mL (0.01-0.034)
[2021-06-24 21:58] LABS: NT-proBNP (BNP-Adult 18+) 1050 pg/mL (<125)
[2021-06-24 22:17] LABS: Magnesium 2.3 mg/dL (1.6-2.3)
[2021-06-24 22:25] LABS: Neutrophils Absolute Manual 16020 /uL (3000-5900); RBC Morphology Normal Morphology; Total Cells Counted 100
[2021-06-24 22:27] LABS: Platelet Estimate Adequate on smear
[2021-06-24 22:34] LABS: Procalcitonin 0.03 ng/mL (<0.5)
[2021-06-24] MEDS: ONDANSETRON 4 MG/2 ML INJ IV (22:42)
--- NOTE | 2021-06-24 22:50 | P.HP_ITS ---
History of Present Illness History of Present Illness Date Patient Seen: 06/24/21 Time Patient Seen: 22:04 Chief complaint: GLF Narrative: Rayo Estrada is a 70-year-old male who presented to the ED with complaint of ground level fall.? Patient is without housing he currently lives in his vehicle.? He was at the local grocery store and states that he slipped in the rain and fell on his buttocks.?Patient denies dizziness, hitting his head, or loss of consciousness. Does have some ?butt pain? but denies any other new injuries.? He does appreciate some weakness in his left leg compared to his other side he is uncertain about onset but states maybe when he got into the EMS rig.?Patient states he is supposed to be on a water pill.? He takes it once weekly, because it makes him pee all the time.? He denies any other daily medications, though he is prescribed amlodipine.? He does have chronic bilateral lower extremity swelling which he states is stable.? He denies any neck or back pain.? He denies any chest pain, shortness of breath, nausea, vomiting, new n umbness, tingling, fever, body aches, or chills.? He denies any other new weakness on the left upper extremity.? No difficulty with speech or collecting his thoughts.? Patient denies any blood thinners. Upon admit to the floor patient's heart rate is significantly irregular and 1 placed on monitor the patient is in AFib when questioned the patient states that someone may have mentioned AFib to him a few months ago but unable to recall who or where. Patient notes that he is a poor historian. Patient's blood pressure is also equally elevated on admission 153/113, having received his amlodipine 15 minutes prior, patient denies chest pain shortness of breath or irregular heart rate. Patient had a elevated white count of 17.8, neutrophils 16,020 upon admit, upon physical exam his bilateral +4 pitting edema with noted warm to touch lower right leg cellulitis. Also Arredondo was placed in ED patient's urine is bloody with multiple small clots, patient denies any urinary symptoms or previous k nowledge hematuria, or history of UTIs. Patient denies abdominal pain, nausea, vomiting, or melena. Patient had a BUN of 21, and HC03 33, total creatinine kinase 43, tox screen was negative, troponin was within normal limits, BNP 1050. Obtain patient's EKG atrial fib rate of 99 with PVCs, nonspecific T-wave changes and prolonged QT AFib not present on previous EKGs. Patient's head neck CT was negative for any acute intracranial processes, chest x-ray was negative for any acute cardiopulmonary processes. Pelvis x-ray demonstrated left femoral neck fracture. Dr. Mena orthopedic graciously consulted in ED requested patient be admitted to medical service and will take the patient to OR tomorrow. Patient admitted with left femur fracture, new onset atrial fibrillation and cellulitis of the right lower leg. Related Data Previous Rx's ?Medication ?Instructions ?Recorded amlodipine 10 mg tablet 10 mg PO DAILY #30 tab 05/16/20 cephalexin 250 mg capsule 500 mg PO TID #18 cap 05/16/20 hydrochlorothiazide 25 mg tabletD 25 mg PO DAILY #14 tab 06/07/20 prednisone 50 mg tablet 50 mg PO DAILY #5 tab 08/10/20 hydrochlorothiazide 25 mg tablet 25 mg PO DAILY #30 tab 08/12/20 hydrochlorothiazide 25 mg tablet 25 mg PO DAILY #30 tab 08/15/20 mupirocin 2 % topical ointment 1 applic TOPICAL BID #15 g 08/29/20 mupirocin 2 % topical ointment 1 applic TOPICAL BID #15 g 08/29/20 mupirocin 2 % topical ointment 1 applic TOPICAL BID #15 g 11/16/20 mupirocin 2 % topical ointment 1 applic TOPICAL BID #15 g 11/16/20 Allergies Allergy/AdvReac Type Severity Reaction Status Date / Time No Known Drug Allergies Allergy ? ? Verified 03/30/21 11:34 Review of Systems Review of Systems ROS Unobtainable: All systems reviewed & are unremarkable except as noted in HPI and below Patient History Medical History?(Updated 06/24/21 @ 19:23 by Adwoa Enamorado DO) Cellulitis of left leg Congestive heart failure Elevated troponin Hypertension Surgical History? No pertinent past surgical history Social History? household members:? other housing:? other occupational status:? unemployed Smoking Status:? Former smoker alcohol intake:? current additional social history:? Lives in a hotel Smoking Status: Former smoker alcohol intake frequency: other Substance Use Type: does not use Exam Narrative Exam Narrative: GEN: Patient appears in male distress. HEAD: No evidence of trauma, no raccoon/Almaguer sign. NECK: Nontender, painless range of motion, trachea midline Negative Nexus criteria, there is no line tenderness, distracting injury, altered mental status, neuro deficit, recent EtOH. EYES: PERRLA, EOMI ENT: External inspection normal, trachea is midline, TM's are normal no hemotypanum, Nares are clear, no septal hematoma, no dental or oral injury, airway is normal and with normal occlusion, No bony tenderness RESP: Chest is nontender and has symmetric movement, no ecchymosis, breath sounds are normal no crackles, wheezes or rales CVS: Heart sounds are normal, no murmur noted, No JVD. ABG/GI: Nontender, soft, normal bowel sounds, no distention, no organomegaly, pelvic rock is negative NEURO: Oriented AOx3, neuro is grossly intact, sensation and motor is normal all 4 extremities moving, cranial nerves II through XII are intact, GCS is 15 PSYCH: Normal mood and affect SKIN: Intact, warm and dry, no crepitus and without decubitus BACK: No CVA tenderness, no vertebral tenderness, no step-off's, no crepitus EXT: Atraumatic, hips are nontender, no pedal edema, normal color and temperature, patient has normal range upper extremities.? He has some weakness in bilateral lower extremities but he is able to lift his right lower extremity off the bed which he states is his normal level of strength.? He has ability to lift his left leg states it seems harder on that side.? Patient does have some erythema and skin breakdown bilateral ankles but no extensive cellulitis appreciated. Initial Vital Signs Initial Vital Signs:?Vital Signs Temperature ?97.3 F L ?06/24/21 18:12 Pulse Rate ?110 H ?06/24/21 18:12 Respiratory Rate ?16 ?06/24/21 18:12 Blood Pressure ?136/87 ?06/24/21 18:12 Pulse Oximetry ?98 ?06/24/21 18:12 Scores GCS Isadora coma scale eye opening: Spontaneous [place] coma scale verbal response: Orientated Isadora coma scale motor response: Obey commands [place] coma scale total score: 15 NIH Stroke Scale Level of Conciousness: Alert, keenly responsive Ask month/age: Answers both questions correctly. Open/close eyes, close hand: Performs both tasks correctly Best gaze horizontal: Normal Visual leal: No visual loss Facial palsy: Normal symetrical movement Left arm drift: No drift for full 10 sec Right arm drift: No drift for full 10 sec Left leg drift: No drift for full 5 sec Right leg drift: No drift for full 5 sec Limb ataxia: Present in one limb Sensory on face/arms/legs: Normal, no sensory loss Best language: No aphasia, normal Dysarthria: Normal Extinction or inattention: No abnormality Total NIH Stroke scale score: 1 Course Orders Ordered: ED Orders 06/24/21 18:22 CT head/brain wo con Stat XR chest 1V Stat XR pelvis 1-2V Stat 06/24/21 18:23 Partial Thromboplastin Time Stat Prothrombin Time INR Stat 06/24/21 19:35 COVID19 - ADMIT (LEGAL ADMINISTRATIVE SECRETARY swab/PCR) Stat 06/24/21 19:49 Urine Drug Screen, Rapid Stat 06/24/21 20:55 Basic Metabolic Panel Stat Complete Blood Count AUTO DIFF Stat Ethanol (ETOH) Stat Troponin & CK Cardiac Panel Stat 06/24/21 21:18 NT-proBNP (BNP-Adult 18+) Stat Discontinued Medications Morphine Sulfate (Morphine 2 Mg/Ml Inj)? 2 mg IV NOW ONE Stop: 06/24/21 21:18 Last Admin: 06/24/21 21:23 Dose:? 2 mg Documented by: Consultations Consultation #1: Dr. Mena is happy to see.? She does request patient be admitted to Medicine. Consultation #2: PAPITO Vizcaino, accepts for admission.? Platelets pending all other labs completed. Vital Signs Vital signs: Vital Signs - 8 hr ? 06/24/21 18:12 C Temperature 97.3 F L Pulse Rate 110 H Respiratory Rate 16 Blood Pressure 136/87 Pulse Oximetry 98 MDM - Fall Lab Data Result diagrams: 06/24/21 20:55? 06/24/21 20:55? Labs: Lab Results ? 06/24/21 06/24/21 06/24/21 Range/Units ? 19:35 19:49 20:55 ? WBC ? ? ?17.8 H ?(4.5-11.0)? X10^3/uL RBC ? ? ?5.09 ?(4.5-5.9)? X10^6/uL Hgb ? ? ?16.5 ?(13.5-17.5)? g/dL Hct ? ? ?49.1C ?(41-53)? % MCV ? ? ?96.3 ?(80-100)? fL MCH ? ? ?32.4 ?(26-34)? PG MCHC ? ? ?33.5 ?(30-36)? % RDW ? ? ?14.0 ?(11.6-14.8)? % Neut % (Auto) ? ? ?Not Reportable ? Lymph % (Auto) ? ? ?Not Reportable ? [place] % (Auto) ? ? ?Not Reportable ? Eos % (Auto) ? ? ?Not Reportable ? Baso % (Auto) ? ? ?Not Reportable ? Lymph # (Auto) ? ? ?Not Reportable ? [place] # (Auto) ? ? ?Not Reportable ? Baso # (Auto) ? ? ?Not Reportable ? Sodium ?(137-145)? mmol/L Potassium ?(3.4-5.1)? mmol/L Chloride ?(98-107)? mmol/L Carbon Dioxide ?(22-32)? mmol/L BUN ?(9-20)? mg/dL Creatinine ?(0.66-1.25)? mg/dL Estimated GFR ?(>60)? mL/min BUN/Creatinine Ratio ?(6-22)? Glucose ?(80-110)? mg/dL Calcium ?(8.4-10.2)? mg/dL Total Creatine Kinase ?(55-170)? U/L CK-MB (CK-2) ? CK-MB (CK-2) Rel Index ? Troponin I ?(0.01-0.034)? ng/mL U Opiates 300ng/mL cut ? ?Negative ? ?(Negative)? Ur Oxycodone Screen ? ?Negative ? ?(Negative)? Urine Methadone Screen ? ?Negative ? ?(Negative)? Ur Barbiturates Screen ? ?Negative ? ?(Negative)? U Tricyclic Antidepress ?B ?Negative ? ?(Negative)? Ur Phencyclidine Scrn ? ?Negative ? ?(Negative)? Ur Amphetamines Screen ? ?Negative ? ?(Negative)? U Methamphetamines Scrn ? ?Negative ? ?(Negative)? Ur MDMA Scrn (Ecstasy) ? ?Negative ? ?(Negative)? U Benzodiazepines Scrn ? ?Negative ? ?(Negative)? Urine Cocaine Screen ? ?Negative ? ?(Negative)? U Marijuana (THC) Screen ? ?Negative ? ?(Negative)? Ethyl Alcohol ? ? ? ( - 10) mg/dL SARS-CoV-2 (PCR) ?Negative ? ? ?(Negative)? ? 06/24/21 Range/Units ? 20:55 ? WBC ? ?(4.5-11.0)? X10^3/uL RBC ? ?(4.5-5.9)? X10^6/uL Hgb ? ?(13.5-17.5)? g/dL Hct ? ?(41-53)? % MCV ? ?(80-100)? fL MCH ? ?(26-34)? PG MCHC ? ?(30-36)? % RDW ? ?(11.6-14.8)? % Neut % (Auto) ? ? Lymph % (Auto) ? ? [place] % (Auto) ? ? Eos % (Auto) ? ? Baso % (Auto) ? ? Lymph # (Auto) ? ? [place] # (Auto) ? ? Baso # (Auto) ? ? Sodium ?140 ?(137-145)? mmol/L Potassium ?4.2 ?(3.4-5.1)? mmol/L Chloride ?104 ?(98-107)? mmol/L Carbon Dioxide ?33 H ?(22-32)? mmol/L BUN ?21 H ?(9-20)? mg/dL Creatinine ?0.71 ?(0.66-1.25)? mg/dL Estimated GFR ?> 60.0 ?(>60)? mL/min BUN/Creatinine Ratio ?29.6 H ?(6-22)? Glucose ?101 ?(80-110)? mg/dL D Calcium ?9.8 ?(8.4-10.2)? mg/dL Total Creatine Kinase ?43 L ?(55-170)? U/L CK-MB (CK-2) ?TNP ? CK-MB (CK-2) Rel Index ?TNP ? Troponin I ?< 0.012 ?(0.01-0.034)? ng/mL U Opiates 300ng/mL cut ? ?(Negative)? Ur Oxycodone Screen ? ?(Negative)? Urine Methadone Screen ? ?(Negative)? Ur Barbiturates Screen ? ?(Negative)? U Tricyclic Antidepress ? ?(Negative)? Ur Phencyclidine Scrn ? ?(Negative)? Ur Amphetamines Screen ? ?(Negative)? U Methamphetamines Scrn ? ?(Negative)? Ur MDMA Scrn (Ecstasy) ? ?(Negative)? U Benzodiazepines Scrn ? ?(Negative)? Urine Cocaine Screen ? ?(Negative)? U Marijuana (THC) Screen ? ?(Negative)? Ethyl Alcohol ?< 10 ( - 10) mg/dL SARS-CoV-2 (PCR) ? ?(Negative)? Urine Dip Bedside Urine Glucose ? Negative? Bedside Urine Bilirubin ? ? ? - Negative? Bedside Urine Ketone? +/- 5 ? Urine Specific [place]? 1.20? Bedside Urine Occult Blood? ? - Negative? Bedside Urine pH? 6.0 ? Bedside Urine Protein ? +/- 15? Bedside Urine Urobilinogen? ? - Negative? Bedside Urine Nitrite ? - Negative? Bedside Urine Leukocytes? ? ? - Negative? Esterase? Discharge Plan Departure Patient Disposition: Admitted As Inpatient Clinical Impression: ?Closed hip fracture Signed By: Patient History Medical History (Updated 06/25/21 @ 02:48 by KEV Hargrove) Cellulitis of left leg Congestive heart failure Elevated troponin Essential hypertension Hypertension Surgical History No pertinent past surgical history Family & Social History Family History Mother Hypertension Sister Hypertension Social History: household members other Safety & Behavioral: Feels Safe in Current Yes Environment Been Physically Hurt or No Threatened By a Person Tobacco & Substance use: Tobacco type cigarettes Smoking Status Former smoker alcohol intake current alcohol intake frequency other Substance Use Type does not use Meds Home Medications and Allergies Home Medications Medication Instructions Recorded Confirmed Type melatonin 10 mg tablet 10 mg PO BEDTIME PRN 06/24/21 06/24/21 History Allergies Allergy/AdvReac Type Severity Reaction Status Date / Time No Known Drug Allergies Allergy Verified 03/30/21 11:34 Review of Systems Review of Systems Narrative: All 12 point systems reviewed with the patient and are negative except otherwise documented. Exam Vital Signs (past 8 hours): - 06/24/21 18:12 06/24/21 18:50 06/24/21 20:35 Temperature 97.3 F L Pulse Rate 110 H 91 H 95 H Respiratory Rate 16 21 Blood Pressure 136/87 Pulse Oximetry 98 98 06/24/21 21:00 06/24/21 21:23 06/24/21 21:37 Temperature Pulse Rate 94 H 97 H 91 H Respiratory Rate Blood Pressure 143/69 H Pulse Oximetry 98 98 97 Oxygen Delivery Method Room Air Narrative Exam Narrative: General: Patient appears thin, disheveled, dirty, poorly nourished male in no acute distress at this time. HEENT: Normocephalic, oral pharynx is clear and mucous membranes are dry. Neck is supple and symmetric, trachea is midline, no adenopathy, no thyroid enlargement, nontender, no masses palpated. Negative for JVD Chest: Normal AP diameter and contour without kyphoscoliosis, no nasal flaring, retractions, or tachypneic labored Lungs: Auscultation of all lung leal are clear without adventitious sounds, wheezes, rhonchi, or rales. Cardio: irregular rate and rhythm without murmur, rubs, or gallops, no carotid bruit, no cardiac pulsations present. Abdomen: Soft nontender, negative for organomegaly, or masses. Bowel sounds are present in all 4 quadrants without guarding or rebound, no CVA tenderness. Catheter in place draining appropriately, bloody urine with small multiple blood clots. Musculoskeletal: Lower Ext: Bilateral +4 pitting edema, left lower extremity shorter than right, externally rotated. Hyperpigmentation noted left lower calf area without signs of infection Skin: Right lower calf area positive erythema, inflammation and cellulitis present without drainage, warm to touch. Neuro: Alert and orientated x3, poor historian, poor recall. sensation to touch intact, no gross deficits noted of cranial nerves. Psych: Patient has a poorly-kept appearance and poor health quality, appropriate affect, mental status appear poor for stated age. Objective Labs Result Diagrams: 06/24/21 20:55 06/24/21 20:55 Labs: Laboratory Results - last 24 hr 06/24/21 06/24/21 06/24/21 19:35 19:49 20:55 WBC 17.8 H RBC 5.09 Hgb 16.5 Hct 49.1 MCV 96.3 MCH 32.4 MCHC 33.5 RDW 14.0 Plt Count Not Reportable Neut % (Auto) Not Reportable Lymph % (Auto) Not Reportable [place] % (Auto) Not Reportable Eos % (Auto) Not Reportable Baso % (Auto) Not Reportable Lymph # (Auto) Not Reportable [place] # (Auto) Not Reportable Baso # (Auto) Not Reportable Total Counted 100 Seg Neutrophils % 83.0 H Band Neutrophils % 7.0 Lymphocytes % (Manual) 7.0 L Monocytes % (Manual) 2.0 Eosinophils % (Manual) 1.0 L Neutrophils # (Manual) 99131 H Platelet Estimate Adequate on smear RBC Morphology Normal morphology Sodium Potassium Chloride Carbon Dioxide BUN Creatinine Estimated GFR BUN/Creatinine Ratio Glucose Calcium Magnesium Total Creatine Kinase CK-MB (CK-2) CK-MB (CK-2) Rel Index Troponin I NT-Pro-B Natriuret Pep Procalcitonin U Opiates 300ng/mL cut Negative Ur Oxycodone Screen Negative Urine Methadone Screen Negative Ur Barbiturates Screen Negative U Tricyclic Antidepress Negative Ur Phencyclidine Scrn Negative Ur Amphetamines Screen Negative U Methamphetamines Scrn Negative Ur MDMA Scrn (Ecstasy) Negative U Benzodiazepines Scrn Negative Urine Cocaine Screen Negative U Marijuana (THC) Screen Negative Ethyl Alcohol SARS-CoV-2 (PCR) Negative 06/24/21 06/24/21 06/24/21 20:55 20:55 20:55 WBC RBC Hgb Hct MCV MCH MCHC RDW Plt Count Neut % (Auto) Lymph % (Auto) [place] % (Auto) Eos % (Auto) Baso % (Auto) Lymph # (Auto) [place] # (Auto) Baso # (Auto) Total Counted Seg Neutrophils % Band Neutrophils % Lymphocytes % (Manual) Monocytes % (Manual) Eosinophils % (Manual) Neutrophils # (Manual) Platelet Estimate RBC Morphology Sodium 140 Potassium 4.2 Chloride 104 Carbon Dioxide 33 H BUN 21 H Creatinine 0.71 Estimated GFR > 60.0 BUN/Creatinine Ratio 29.6 H Glucose 101 Calcium 9.8 Magnesium 2.3 Total Creatine Kinase 43 L CK-MB (CK-2) TNP CK-MB (CK-2) Rel Index TNP Troponin I < 0.012 NT-Pro-B Natriuret Pep 1050 H Procalcitonin 0.03 U Opiates 300ng/mL cut Ur Oxycodone Screen Urine Methadone Screen Ur Barbiturates Screen U Tricyclic Antidepress Ur Phencyclidine Scrn Ur Amphetamines Screen U Methamphetamines Scrn Ur MDMA Scrn (Ecstasy) U Benzodiazepines Scrn Urine Cocaine Screen U Marijuana (THC) Screen Ethyl Alcohol < 10 SARS-CoV-2 (PCR) Assessment & Plan Assessment & Plan narrative: Patient is a 70-year-old male Rayo Estrada who pres ented to the ED after slipping and falling in the [employer] parking lot and suffering a fracture of the left femoral neck. Patient is homeless and lives out of his car. Patient admitted for ground level fall resulting in left femoral neck fracture, and lower right leg cellulitis. 1. Mechanical ground level fall resulting in left femoral neck fracture, acute, present on admission -Dr. Mena orthopedics consulted in ED will take patient to surgery tomorrow -patient denies hx of osteoporosis/osteopenia. -NPO after midnight, Arredondo placed, pain management-bloody urine discharge with multiple small blood clots traumatic verses UTI- UA/Culture ordered -Recommend offering patient Coivid-19 Vaccination 2. Atrial fibrillation (likely chronic due to medication non-compliance), acute, in the setting of essential hypertension, acute on chronic, present on admission -EKG ordered demonstrating AFib with PVCs, nonspecific T-wave changes and prolonged QT, troponin <0.012-repeat in am- pt denies CP or SOB.-stable -admit BP 153/113 with a [id number]- 5 mg IV metoprolol given -monitored on tele-medicine -patient was showing taking HCTZ and amlodipine, patient denies this recommend starting patient on metoprolol for rate control 3. Right lower leg cellulitis, acute, present on admission -WBC 17.8, neutrophils, 16,020 -Blood Cultures x2, MRSA ordered-then Vanco per pharmacy until cultures result. 4. Acute on chronic, exacerbation of diastolic heart failure with preserved left ventricular ejection fraction, in the setting of history of IA Type II, chronic, present on admission -likely due to medication non-compliance -initial BNP 1050 -05/12/2020Echocardiogram demonstrated LV normal in size and function EF 55-60%, moderate asymmetric LVH, no echo evidence for significant left ventricular outflow tract obstruction, no systolic anterior motion of the mitral valve, RV is upper limits of normal in size and systolic function is normal, mild mitral regurgitation, IVC is dilated yet and collapses greater than 50% was in if suggest a right atrial pressure of 8 mmHg.? Diastolic heart failure stage I. -Continue strict I&O daily weights.? 2liters fluid restriction, low-sodium diet postoperative. -Continue to monitor electrolytes.? Code status: DNR per patient Surrogate decision maker: Sister Yusra Camacho COVID PCR:Negative COVID vaccination: Unknown DVT/VTE prophylaxis:SCD only until after surgery, then in addition heparin 500units BID Disposition: Patient acute care admit expected length of stay greater than 2 midnights. I have utilized all available immediate resources to obtain, update, or review the patient's current medications. I confirmed that the patient's advanced care plan is present, Code status is documented and/or surrogate decision maker is listed in the patient's medical record. Time Spent With Patient Critical Care time: I spent a total of [] minutes of critical care time on this patient's care today; this time is exclusive of procedural time. Scores GCS Isadora coma scale eye opening: Spontaneous [place] coma scale verbal response: Orientated Isadora coma scale motor response: Obey commands Isadora coma scale total score: 15 SOFA PaO2/FIO2: >=400 mmHg Platelets: >= 150
[2021-06-24] MEDS: LACTATED RINGERS 1,000 ML 60 ML IV (23:12)
[2021-06-24] MEDS: AMLODIPINE 5 MG TABLET 10 MG PO (23:15)
[2021-06-25] VITALS (22 sets, daily range): BP systolic 124–194; BP diastolic 80–109; PULSE 85–121; RESP 12–20; TEMP 36.2–37.4; O2SAT 92–100; BMI 29.3
[2021-06-25] MEDS: METOPROLOL TARTRATE 5 MG/5 ML INJ IV ×4 (00:13→16:18)
[2021-06-25 00:20] LABS: Appearance Urine UA CLOUDY; Color Urine UA RED; Ketones Urine UA 3+ (NEGATIVE); Leukocyte Esterase Urine UA TRACE (NEGATIVE); Nitrite Urine UA NEGATIVE (Negative); Occult Blood Urine UA 3+ (Negative); Protein Urine UA 1+ (Negative); Urobilinogen Urine UA 0.2 E.U./dL (0.2); pH Urine UA 5.5 (4.5-8.0)
[2021-06-25 00:29] LABS: Bilirubin Urine UA NEGATIVE (NEGATIVE); Glucose Urine UA NEGATIVE (Negative)
[2021-06-25 00:49] LABS: RBC Urine >100/HPF (0-5/HPF)
[2021-06-25 00:50] LABS: Bacteria Urine None Seen; Culture Indicated Urine Specimen Cultured; WBC Urine 1-5/HPF (0-5/HPF)
--- NOTE | 2021-06-25 01:48 | PC.NURSE ---
Addendum entered by Judith Mitchell R.N. 06/25/21 05:45: Have had to replace telemetry leads x4 this shift as patient keeps removing them. States pain is currently 7/10 so medicated with Dilaudid. Did not remember he is in the hospital; wanting to get up to get to the meeting. Addendum entered by Judith Mitchell R.N. 06/25/21 03:12: Did find empty Juaquin's wrapper at bedside at shift change and instructed patient he was not to have any caffiene or chocolate 24h prior to stress test. Carrillo SELF, informed patient did have some chocolate last evening. Original Note: Patient is alert and oriented except did not know day of month (stated it was the ). Breath sounds CTA with RA sat of 97%. HR irregular and tachy up to 116bpm; patient states he was told he has afib a couple months ago. BP also elevated at 158/106. Carrillo SELF informed of both irregular/tachy HR and elevated BP; orders received for telemetry and IV Metoprolol. CUSTOMER SUCCESS ASSOCIATE, Marichuy, informed that telemetry had been started at 0010 and she verbally stated patient was in afib RVR at that time. Denied nausea. BT present and abdomen soft. Indwelling catheter patent; urine red with small clots noted; UA sent to lab. Is being allowed position of comfort at this time related to left hip fx and patient denied any pain at time of assessment. 2+ bilateral LE edema. Noted to have cracked/red skin just above right ankle and shallow open area on lateral right leg; FLIGHT MECHANIC visualized at time of assessment. Left LE with outward rotation. CBG was 95. Bilateral calf SCD's applied. Fall risk score is high and bed alarm is activated. Is aware he is NPO for probable surgery later today.
[2021-06-25] MEDS: VANCOMYCIN 2,000 MG/400 ML PIGGYBACK 200 MG IV (03:03)
[2021-06-25 03:25] LABS: Add Manual Diff / Slide Review NO; Basophils Absolute Auto 100 /uL (0-100); Eosinophils Absolute Auto 0 /uL (0-450); Eosinophils Percent Auto 0.1 % (2-4); Hemoglobin 15.1 g/dL (13.5-17.5); Lymphocytes Absolute Auto 900 /uL (1100-4500); Lymphocytes Percent Auto 8.8 % (25-40); Mean Corpuscular HGB Conc 32.9 % (30-36); Mean Corpuscular Hemoglobin 31.9 PG (26-34); Mean Corpuscular Volume 96.8 fL (80-100); Monocytes Absolute Auto 800 /uL (0-900); Monocytes Percent Auto 8.1 % (3-14); Neutrophils Absolute Auto 8200 /uL (1500-7000); Platelet Count 321 X10^3/uL (150-400); Red Blood Cell Count 4.75 X10^6/uL (4.5-5.9); Red Cell Distribution Width 13.6 % (11.6-14.8)
[2021-06-25 03:28] LABS: BUN Creatinine Ratio 29.9 (6-22); Blood Urea Nitrogen 20 mg/dL (9-20); Calcium 9.3 mg/dL (8.4-10.2); Carbon Dioxide 30 mmol/L (22-32); Chloride 105 mmol/L (98-107); Estimated Glomerular Filt Rate > 60.0 mL/min (>60); Glucose 116 mg/dL (80-110); HEMOLYSIS 19 (0-50); Potassium 3.5 mmol/L (3.4-5.1); Sodium 139 mmol/L (137-145)
[2021-06-25 03:37] LABS: NT-proBNP (BNP-Adult 18+) 1310 pg/mL (<125)
[2021-06-25 03:53] LABS: Hemoglobin A1C% w Est Avg Glu 5.3 % (4.0-6.0)
[2021-06-25 04:07] LABS: INR 1.1 (0.9-1.3); Prothrombin Time 12.1 SECONDS (10.1-12.7)
[2021-06-25 04:09] LABS: PTT Partial Thromboplastin Tim 32 SECONDS (26.4-36.2)
[2021-06-25] MEDS: HYDROMORPHONE 0.5 MG INJ IV (05:40)
--- NOTE | 2021-06-25 07:39 | PC.NURSE ---
No PO meds this AM per PA that rounded on pt at 0740. No time for OR just yet.
--- NOTE | 2021-06-25 07:40 | PM.PN.1 ---
Subjective Subjective Date Patient Seen: 06/25/21 Time Patient Seen: 07:40 Interval history: Patient states he is doing well overall and is in mild discomfort at rest. Patient recalls his fall yesterday that resulted in his left hip fracture. He states that he was getting out of his car and attempted to place his hand on the cart for support when it slipped, resulting in him falling on his left side. He denies hitting his head or feeling dizzy prior to falling. No loss of consciousness reported. He denies numbness and tingling throughout the bilateral lower extremities. Exam Vital Signs (past 8 hours): - 06/25/21 00:00 06/25/21 00:44 06/25/21 03:09 Temperature 97.8 F 97.1 F L Pulse Rate 111 H 98 H 97 H Respiratory Rate 16 16 Blood Pressure 158/106 H 151/82 H 153/83 H Pulse Oximetry 97 96 Oxygen Delivery Method Room Air Oxygen Flow Rate 0 Narrative Exam Narrative: 70-year-old male. Patient is resting comfortably in bed, is in no acute distress, and is alert and oriented x3. Skin is warm, dry, and pink. Good sensation appreciated throughout the bilateral lower extremities to light touch. Left lower extremity is held in external rotation at rest. Gross motor function intact throughout bilateral lower extremities to light touch. Calves are soft, compressible, and nontender. DP pulses palpated bilaterally and are even. Const General: cooperative and comfortable Resp Effort & Inspection: normal respiratory effort and able to speak in complete sentences Skin General: no rashes or lesions noted Objective Labs Result Diagrams: 06/25/21 02:55 06/25/21 02:55 Labs: Laboratory Results - last 24 hr 06/24/21 06/24/21 06/24/21 19:35 19:49 20:55 WBC 17.8 H RBC 5.09 Hgb 16.5 Hct 49.1 MCV 96.3 MCH 32.4 MCHC 33.5 RDW 14.0 Plt Count Not Reportable Neut % (Auto) Not Reportable Lymph % (Auto) Not Reportable [place] % (Auto) Not Reportable Eos % (Auto) Not Reportable Baso % (Auto) Not Reportable Neut # (Auto) Lymph # (Auto) Not Reportable [place] # (Auto) Not Reportable Eos # (Auto) Baso # (Auto) Not Reportable Total Counted 100 Seg Neutrophils % 83.0 H Band Neutrophils % 7.0 Lymphocytes % (Manual) 7.0 L Monocytes % (Manual) 2.0 Eosinophils % (Manual) 1.0 L Neutrophils # (Manual) 78839 H Platelet Estimate Adequate on smear RBC Morphology Normal morphology PT INR APTT Sodium Potassium Chloride Carbon Dioxide BUN Creatinine Estimated GFR BUN/Creatinine Ratio Glucose Hemoglobin A1c Calcium Magnesium Total Creatine Kinase CK-MB (CK-2) CK-MB (CK-2) Rel Index Troponin I NT-Pro-B Natriuret Pep Procalcitonin Urine Color Urine Appearance Urine pH Ur Specific [place] Urine Protein Urine Glucose (UA) Urine Ketones Urine Occult Blood Urine Nitrate Urine Bilirubin Urine Urobilinogen Ur Leukocyte Esterase Urine RBC Urine WBC Urine Bacteria Ur Culture Indicated? Nasal Screen MRSA (PCR) U Opiates 300ng/mL cut Negative Ur Oxycodone Screen Negative Urine Methadone Screen Negative Ur Barbiturates Screen Negative U Tricyclic Antidepress Negative Ur Phencyclidine Scrn Negative Ur Amphetamines Screen Negative U Methamphetamines Scrn Negative Ur MDMA Scrn (Ecstasy) Negative U Benzodiazepines Scrn Negative Urine Cocaine Screen Negative U Marijuana (THC) Screen Negative Ethyl Alcohol SARS-CoV-2 (PCR) Negative 06/24/21 06/24/21 06/24/21 20:55 20:55 20:55 WBC RBC Hgb Hct MCV MCH MCHC RDW Plt Count Neut % (Auto) Lymph % (Auto) [place] % (Auto) Eos % (Auto) Baso % (Auto) Neut # (Auto) Lymph # (Auto) [place] # (Auto) Eos # (Auto) Baso # (Auto) Total Counted Seg Neutrophils % Band Neutrophils % Lymphocytes % (Manual) Monocytes % (Manual) Eosinophils % (Manual) Neutrophils # (Manual) Platelet Estimate RBC Morphology PT INR APTT Sodium 140 Potassium 4.2 Chloride 104 Carbon Dioxide 33 H BUN 21 H Creatinine 0.71 Estimated GFR > 60.0 BUN/Creatinine Ratio 29.6 H Glucose 101 Hemoglobin A1c Calcium 9.8 Magnesium 2.3 Total Creatine Kinase 43 L CK-MB (CK-2) TNP CK-MB (CK-2) Rel Index TNP Troponin I < 0.012 NT-Pro-B Natriuret Pep 1050 H Procalcitonin 0.03 Urine Color Urine Appearance Urine pH Ur Specific [place] Urine Protein Urine Glucose (UA) Urine Ketones Urine Occult Blood Urine Nitrate Urine Bilirubin Urine Urobilinogen Ur Leukocyte Esterase Urine RBC Urine WBC Urine Bacteria Ur Culture Indicated? Nasal Screen MRSA (PCR) U Opiates 300ng/mL cut Ur Oxycodone Screen Urine Methadone Screen Ur Barbiturates Screen U Tricyclic Antidepress Ur Phencyclidine Scrn Ur Amphetamines Screen U Methamphetamines Scrn Ur MDMA Scrn (Ecstasy) U Benzodiazepines Scrn Urine Cocaine Screen U Marijuana (THC) Screen Ethyl Alcohol < 10 SARS-CoV-2 (PCR) 06/25/21 06/25/21 06/25/21 00:03 02:30 02:55 WBC RBC Hgb Hct MCV MCH MCHC RDW Plt Count Neut % (Auto) Lymph % (Auto) [place] % (Auto) Eos % (Auto) Baso % (Auto) Neut # (Auto) Lymph # (Auto) [place] # (Auto) Eos # (Auto) Baso # (Auto) Total Counted Seg Neutrophils % Band Neutrophils % Lymphocytes % (Manual) Monocytes % (Manual) Eosinophils % (Manual) Neutrophils # (Manual) Platelet Estimate RBC Morphology PT INR APTT Sodium Potassium Chloride Carbon Dioxide BUN Creatinine Estimated GFR BUN/Creatinine Ratio Glucose Hemoglobin A1c 5.3 Calcium Magnesium Total Creatine Kinase CK-MB (CK-2) CK-MB (CK-2) Rel Index Troponin I NT-Pro-B Natriuret Pep Procalcitonin Urine Color Red Urine Appearance Cloudy Urine pH 5.5 Ur Specific [place] 1.020 Urine Protein 1+ H Urine Glucose (UA) Negative Urine Ketones 3+ H Urine Occult Blood 3+ H Urine Nitrate Negative Urine Bilirubin Negative Urine Urobilinogen 0.2 Ur Leukocyte Esterase Trace H Urine RBC >100/hpf H Urine WBC 1-5/hpf Urine Bacteria None seen Ur Culture Indicated? Specimen cultured Nasal Screen MRSA (PCR) Negative for mrsa U Opiates 300ng/mL cut Ur Oxycodone Screen Urine Methadone Screen Ur Barbiturates Screen U Tricyclic Antidepress Ur Phencyclidine Scrn Ur Amphetamines Screen U Methamphetamines Scrn Ur MDMA Scrn (Ecstasy) U Benzodiazepines Scrn Urine Cocaine Screen U Marijuana (THC) Screen Ethyl Alcohol SARS-CoV-2 (PCR) 06/25/21 06/25/21 06/25/21 02:55 02:55 02:55 WBC 10.0 RBC 4.75 Hgb 15.1 Hct 46.0 MCV 96.8 MCH 31.9 MCHC 32.9 RDW 13.6 Plt Count 321 Neut % (Auto) 82.0 H Lymph % (Auto) 8.8 L [place] % (Auto) 8.1 Eos % (Auto) 0.1 L Baso % (Auto) 1.0 Neut # (Auto) 8200 H Lymph # (Auto) 900 L [place] # (Auto) 800 Eos # (Auto) 0 Baso # (Auto) 100 Total Counted Seg Neutrophils % Band Neutrophils % Lymphocytes % (Manual) Monocytes % (Manual) Eosinophils % (Manual) Neutrophils # (Manual) Platelet Estimate RBC Morphology PT 12.1 INR 1.1 APTT 32 Sodium 139 Potassium 3.5 Chloride 105 Carbon Dioxide 30 BUN 20 Creatinine 0.67 Estimated GFR > 60.0 BUN/Creatinine Ratio 29.9 H Glucose 116 H Hemoglobin A1c Calcium 9.3 Magnesium Total Creatine Kinase CK-MB (CK-2) CK-MB (CK-2) Rel Index Troponin I NT-Pro-B Natriuret Pep 1310 H Procalcitonin Urine Color Urine Appearance Urine pH Ur Specific [place] Urine Protein Urine Glucose (UA) Urine Ketones Urine Occult Blood Urine Nitrate Urine Bilirubin Urine Urobilinogen Ur Leukocyte Esterase Urine RBC Urine WBC Urine Bacteria Ur Culture Indicated? Nasal Screen MRSA (PCR) U Opiates 300ng/mL cut Ur Oxycodone Screen Urine Methadone Screen Ur Barbiturates Screen U Tricyclic Antidepress Ur Phencyclidine Scrn Ur Amphetamines Screen U Methamphetamines Scrn Ur MDMA Scrn (Ecstasy) U Benzodiazepines Scrn Urine Cocaine Screen U Marijuana (THC) Screen Ethyl Alcohol SARS-CoV-2 (PCR) [facility] Medical History Cellulitis of left leg Congestive heart failure Elevated troponin Essential hypertension Hypertension Surgical History No pertinent past surgical history Family History Mother Hypertension Sister Hypertension Social History household members: none housing: other occupational status: unemployed Smoking Status: Current every day smoker alcohol intake: current additional social history: Lives in a hotel Assessment & Plan Assessment & Plan narrative: Patient is doing well and is stable. Plan is to have the patient taken to the OR today to repair his left femoral neck fracture. Patient is to remain NPO prior to surgery. Time Spent With Patient Critical Care time: I spent a total of [] minutes of critical care time on this patient's care today; this time is exclusive of procedural time. Quality VTE Deep Vein Thrombosis/Pulmonary Embolism Present on Admission: No
[2021-06-25] MEDS: MORPHINE 2 MG/ML INJ IV (10:19)
--- NOTE | 2021-06-25 10:49 | PC.NURSE ---
Addendum entered by Erin Loving R.N. 06/25/21 14:00: IV Metoprolol administered for BP 158/95, CBG-94. pt's sister has called and spoke to pt a couple times. pt reporting a sore neck but denying leg/hip pain. Original Note: AM shift note. pt AO and receptive to care. pt mumbled speech and communicates appropriately. pt unable to reposition independently. SCD's replaced (leg ulcer was draining) and on. Left FA PIV infusing LR @60/hr. Arredondo draining with gravity. Tele: Afib. Bilateral lower extremity +4 pitting edema with an open ulcer to RLE. I covered it with a Covrsite. Morphine IV administered ~1020 for 5/10 pain. Bath performed with moderate assistance. pt scheduled for OR at 1645 and is currently NPO.
--- NOTE | 2021-06-25 14:06 | PC.NURSE ---
Sister- Yusra Camacho, called for an update. pt gave us permission to provide updates to her. Her number is . She would like a call when the patient is out of surgery.
--- NOTE | 2021-06-25 14:38 | CM.DANOTE ---
Patient is a 70 yo male who was admitted on 06/24/21 for GLF. Pt has [facility] MCR for insurance and his PCP is not listed. EMR was reviewed. Per MD, pt is homeless and lives in his vehicle and slipped and had GLF and admitted for AFIB, cellulitis, and L Femoral Neck Fx. Per Ortho Consult, recommending surgical intervention and pt to have surgery today at 1645. Met w/patient, explained SW role. Patient is very pleasant, calm, some mild cognitive delay noted. Patient's only contact is his sister, Yusra, who lives in [place] P# [phone] and is aware pt is admitted to the hospital. Patient has been transient for many years and pt had stable housing in [place] for at least 6 months, not subsidized housing, but [employer] sold this property and patient was asked to vacate. Since moving out of [place], patient has lived in his car, he spent one night at [facility] that did not go well, and has spent some time up in [place]. Pt has utilized [employer] Voucher Program in the past and has stayed at [facility] in [place] before. Pt had been on waiting list at [facility] (subsidized/HUD housing in [place]) which is approx a 5 year wait time but pt unsure if he is still on the waiting list at this time. Patient makes approx $1,200 in SS and would be agreeable to living in an AFH/[facility] if there was one available to him and he qualified for funding through [facility]. Pt was last admitted in Apr 2020 and SW helped pt to complete Medicaid Application as well as the Expedited Referral to [facility] towards assisting with LTC and/or additional resources. Pt currently unsure if he is still on Medicaid and states he has not had contact with anyone from Medicaid for quite some time. Patient explains he has been able to manage mostly independently but might have benefited from a walker in the [facility]. Patient denies daily drug or alcohol use, states he drinks a pint or two at [employer] (local [place] bar) every other week or so. UDS was negative. Pt also states he is unsure if he is still connected to [facility] as he hasn't seen a doctor in a while. After pt's last d/c in Apr 2020 last year SW received a call from Aracelis at [facility] Transitions Program requesting medical information to better follow up with pt. SW attempted to call [facility] Transition Program and awaiting call back with new contact info for new person in charge of Transitions Program to determine if pt is still in their system. SW called [facility] and they confirm that last year during pt's admission they had received Medicaid application and expedited referral and pt had been assigned to a CM but then transitioned out. [facility] states pt would not need a full application again but an expedited referral would help get pt assigned to a [facility] CM and likely a hospital assessment towards getting LTC set up. SW completed Expedited Referral and faxed. SW discussed likely need for SNF at d/c with pt and he confirms he would be agreeable but aware that SNF was attempted last year and his homelessness is a barrier to placement. Pt fully vaccinated here at the hospital in December and January 2021 this year. Plan: Pt currently NPO for surg this evening and SW to follow closely with HCS and PT/OT eval towards determining safe d/c plan when stable for discharge. JACK Wiley Discharge Planning/Care Management CM Discharge Assessment Start: 06/25/21 14:36 Freq: Status: Active Protocol: Document 06/25/21 14:36 BF (Rec: 06/25/21 14:38 BF [id number]) Discharge Planning Assessment Assigned Loop Puller JACK Bailey DPOA/Assigned Designee Name none, informally sister Contact Information [phone] Advance Directives? No Advance Directives on File No History Provided By Patient,Medical Record Has Patient been admitted in last 30 No days? Prior Living Arrangements Homeless Household Members none Type of transporation used prior to Drives own vehicle admit Independent with ADL's Yes Is patient alert and oriented? Yes: some cog issues/short term memory Needs Assistance With Managing Medications Caregiver for Another No Patient/Family Preference [facility] Barriers to Discharge Yes Comment Pt's homeless status Discharge Plan [facility] Transportation Arrangement Pending d/c plan Referrals Initiated Halfway Whiteboard Updated in Patient Room with Yes name and ext. # of Loop Puller Review Status In Process Please Provide Date Initial DC 06/25/21 Assessment Was Performed Next Review Type Continued Stay Review
--- NOTE | 2021-06-25 15:56 | P.PN_ITS ---
Subjective Subjective Interval history: 70 y/o male, homeless who suffered a ground level fall resulting in a Left femoral neck fracture. Patient does report some pain but is resting comfortably. Patient is scheduled for definitive operative repair later today. Patient is hypertensive and has known atrial fibrillation. Exam Vital Signs (past 8 hours): - 06/25/21 10:39 06/25/21 12:00 06/25/21 14:24 Temperature 98.3 F Pulse Rate 91 H Respiratory Rate 17 Blood Pressure 158/95 H Pulse Oximetry 95 98 98 Oxygen Delivery Method Room Air Oxygen Flow Rate 0 Narrative Exam Narrative: Desheveled male eyes closed lying in bed Resp Other: Lungs: clear to auscultation Cardio Other: Irregularly irregular nl Sl S2 2/6 GIOVANNI GI Other: Abd: soft/ non tender/ non distended Extrem Other: 3=Edema bilaterally, left leg externally rotated Objective Labs Result Diagrams: 06/25/21 02:55 06/25/21 02:55 Labs: Laboratory Results - last 24 hr 06/24/21 06/24/21 06/24/21 19:35 19:49 20:55 WBC 17.8 H RBC 5.09 Hgb 16.5 Hct 49.1 MCV 96.3 MCH 32.4 MCHC 33.5 RDW 14.0 Plt Count Not Reportable Neut % (Auto) Not Reportable Lymph % (Auto) Not Reportable [place] % (Auto) Not Reportable Eos % (Auto) Not Reportable Baso % (Auto) Not Reportable Neut # (Auto) Lymph # (Auto) Not Reportable [place] # (Auto) Not Reportable Eos # (Auto) Baso # (Auto) Not Reportable Total Counted 100 Seg Neutrophils % 83.0 H Band Neutrophils % 7.0 Lymphocytes % (Manual) 7.0 L Monocytes % (Manual) 2.0 Eosinophils % (Manual) 1.0 L Neutrophils # (Manual) 19765 H Platelet Estimate Adequate on smear RBC Morphology Normal morphology PT INR APTT Sodium Potassium Chloride Carbon Dioxide BUN Creatinine Estimated GFR BUN/Creatinine Ratio Glucose Hemoglobin A1c Calcium Magnesium Total Creatine Kinase CK-MB (CK-2) CK-MB (CK-2) Rel Index Troponin I NT-Pro-B Natriuret Pep Procalcitonin Urine Color Urine Appearance Urine pH Ur Specific [place] Urine Protein Urine Glucose (UA) Urine Ketones Urine Occult Blood Urine Nitrate Urine Bilirubin Urine Urobilinogen Ur Leukocyte Esterase Urine RBC Urine WBC Urine Bacteria Ur Culture Indicated? Nasal Screen MRSA (PCR) U Opiates 300ng/mL cut Negative Ur Oxycodone Screen Negative Urine Methadone Screen Negative Ur Barbiturates Screen Negative U Tricyclic Antidepress Negative Ur Phencyclidine Scrn Negative Ur Amphetamines Screen Negative U Methamphetamines Scrn Negative Ur MDMA Scrn (Ecstasy) Negative U Benzodiazepines Scrn Negative Urine Cocaine Screen Negative U Marijuana (THC) Screen Negative Ethyl Alcohol SARS-CoV-2 (PCR) Negative 06/24/21 06/24/21 06/24/21 20:55 20:55 20:55 WBC RBC Hgb Hct MCV MCH MCHC RDW Plt Count Neut % (Auto) Lymph % (Auto) [place] % (Auto) Eos % (Auto) Baso % (Auto) Neut # (Auto) Lymph # (Auto) [place] # (Auto) Eos # (Auto) Baso # (Auto) Total Counted Seg Neutrophils % Band Neutrophils % Lymphocytes % (Manual) Monocytes % (Manual) Eosinophils % (Manual) Neutrophils # (Manual) Platelet Estimate RBC Morphology PT INR APTT Sodium 140 Potassium 4.2 Chloride 104 Carbon Dioxide 33 H BUN 21 H Creatinine 0.71 Estimated GFR > 60.0 BUN/Creatinine Ratio 29.6 H Glucose 101 Hemoglobin A1c Calcium 9.8 Magnesium 2.3 Total Creatine Kinase 43 L CK-MB (CK-2) TNP CK-MB (CK-2) Rel Index TNP Troponin I < 0.012 NT-Pro-B Natriuret Pep 1050 H Procalcitonin 0.03 Urine Color Urine Appearance Urine pH Ur Specific [place] Urine Protein Urine Glucose (UA) Urine Ketones Urine Occult Blood Urine Nitrate Urine Bilirubin Urine Urobilinogen Ur Leukocyte Esterase Urine RBC Urine WBC Urine Bacteria Ur Culture Indicated? Nasal Screen MRSA (PCR) U Opiates 300ng/mL cut Ur Oxycodone Screen Urine Methadone Screen Ur Barbiturates Screen U Tricyclic Antidepress Ur Phencyclidine Scrn Ur Amphetamines Screen U Methamphetamines Scrn Ur MDMA Scrn (Ecstasy) U Benzodiazepines Scrn Urine Cocaine Screen U Marijuana (THC) Screen Ethyl Alcohol < 10 SARS-CoV-2 (PCR) 06/25/21 06/25/21 06/25/21 00:03 02:30 02:55 WBC RBC Hgb Hct MCV MCH MCHC RDW Plt Count Neut % (Auto) Lymph % (Auto) [place] % (Auto) Eos % (Auto) Baso % (Auto) Neut # (Auto) Lymph # (Auto) [place] # (Auto) Eos # (Auto) Baso # (Auto) Total Counted Seg Neutrophils % Band Neutrophils % Lymphocytes % (Manual) Monocytes % (Manual) Eosinophils % (Manual) Neutrophils # (Manual) Platelet Estimate RBC Morphology PT INR APTT Sodium Potassium Chloride Carbon Dioxide BUN Creatinine Estimated GFR BUN/Creatinine Ratio Glucose Hemoglobin A1c 5.3 Calcium Magnesium Total Creatine Kinase CK-MB (CK-2) CK-MB (CK-2) Rel Index Troponin I NT-Pro-B Natriuret Pep Procalcitonin Urine Color Red Urine Appearance Cloudy Urine pH 5.5 Ur Specific [place] 1.020 Urine Protein 1+ H Urine Glucose (UA) Negative Urine Ketones 3+ H Urine Occult Blood 3+ H Urine Nitrate Negative Urine Bilirubin Negative Urine Urobilinogen 0.2 Ur Leukocyte Esterase Trace H Urine RBC >100/hpf H Urine WBC 1-5/hpf Urine Bacteria None seen Ur Culture Indicated? Specimen cultured Nasal Screen MRSA (PCR) Negative for mrsa U Opiates 300ng/mL cut Ur Oxycodone Screen Urine Methadone Screen Ur Barbiturates Screen U Tricyclic Antidepress Ur Phencyclidine Scrn Ur Amphetamines Screen U Methamphetamines Scrn Ur MDMA Scrn (Ecstasy) U Benzodiazepines Scrn Urine Cocaine Screen U Marijuana (THC) Screen Ethyl Alcohol SARS-CoV-2 (PCR) 06/25/21 06/25/21 06/25/21 02:55 02:55 02:55 WBC 10.0 RBC 4.75 Hgb 15.1 Hct 46.0 MCV 96.8 MCH 31.9 MCHC 32.9 RDW 13.6 Plt Count 321 Neut % (Auto) 82.0 H Lymph % (Auto) 8.8 L [place] % (Auto) 8.1 Eos % (Auto) 0.1 L Baso % (Auto) 1.0 Neut # (Auto) 8200 H Lymph # (Auto) 900 L [place] # (Auto) 800 Eos # (Auto) 0 Baso # (Auto) 100 Total Counted Seg Neutrophils % Band Neutrophils % Lymphocytes % (Manual) Monocytes % (Manual) Eosinophils % (Manual) Neutrophils # (Manual) Platelet Estimate RBC Morphology PT 12.1 INR 1.1 APTT 32 Sodium 139 Potassium 3.5 Chloride 105 Carbon Dioxide 30 BUN 20 Creatinine 0.67 Estimated GFR > 60.0 BUN/Creatinine Ratio 29.9 H Glucose 116 H Hemoglobin A1c Calcium 9.3 Magnesium Total Creatine Kinase CK-MB (CK-2) CK-MB (CK-2) Rel Index Troponin I NT-Pro-B Natriuret Pep 1310 H Procalcitonin Urine Color Urine Appearance Urine pH Ur Specific [place] Urine Protein Urine Glucose (UA) Urine Ketones Urine Occult Blood Urine Nitrate Urine Bilirubin Urine Urobilinogen Ur Leukocyte Esterase Urine RBC Urine WBC Urine Bacteria Ur Culture Indicated? Nasal Screen MRSA (PCR) U Opiates 300ng/mL cut Ur Oxycodone Screen Urine Methadone Screen Ur Barbiturates Screen U Tricyclic Antidepress Ur Phencyclidine Scrn Ur Amphetamines Screen U Methamphetamines Scrn Ur MDMA Scrn (Ecstasy) U Benzodiazepines Scrn Urine Cocaine Screen U Marijuana (THC) Screen Ethyl Alcohol SARS-CoV-2 (PCR) [facility] Medical History Cellulitis of left leg Congestive heart failure Elevated troponin Essential hypertension Hypertension Surgical History No pertinent past surgical history Family History Mother Hypertension Sister Hypertension Social History household members: none housing: other occupational status: unemployed Smoking Status: Current every day smoker alcohol intake: current additional social history: Lives in a hotel Assessment & Plan Assessment & Plan narrative: ?Mechanical ground level fall resulting in left femoral neck fracture, acute, present on admission -Dr. Mena orthopedics consulted in ED will take patient to surgery tomorrow -patient denies hx of osteoporosis/osteopenia. -NPO after midnight, Arredondo placed, pain management-bloody urine discharge with multiple small blood clots traumatic verses UTI- UA/Culture ordered -Recommend offering patient Coivid-19 Vaccination -patient to go to the OR today -likely will need SNF post hospital 2. Atrial fibrillation (likely chronic due to medication non-compliance), acute, in the setting of essential hypertension, acute on chronic, present on admission -EKG ordered demonstrating AFib with PVCs, nonspecific T-wave changes and prolonged QT, troponin <0.012-repeat in am- pt denies CP or SOB.-stable -admit BP 153/113 with a [id number] mg IV metoprolol given -monitored on tele-medicine -patient was showing taking HCTZ and amlodipine, patient denies this recommend starting patient on metoprolol for rate control -agree with metoprolol for blood pressure and rate control ? 3. Right lower leg cellulitis, acute, present on admission -WBC 17.8, neutrophils, 16,020 -Blood Cultures x2, MRSA ordered-then Vanco per pharmacy until cultures result. 4. Acute on chronic,? exacerbation of diastolic heart failure with preserved left ventricular ejection fraction, in the setting of history of HI Type II, chronic, present on admission -likely due to medication non-compliance -initial BNP 1050 -05/12/2020Echocardiogram demonstrated LV normal in size and function EF 55-60%, moderate asymmetric LVH, no echo evidence for significant left ventricular outflow tract obstruction, no systolic anterior motion of the mitral valve, RV is upper limits of normal in size and systolic function is normal, mild mitral regurgitation, IVC is dilated yet and collapses greater than 50% was in if suggest a right atrial pressure of 8 mmHg.? Diastolic heart failure stage I. -Continue strict I&O daily weights.? 2liters fluid restriction, low-sodium diet postoperative. -Continue to monitor electrolytes.? Code status:? DNR per patient Surrogate decision maker:? Sister Yusra Camacho Time Spent With Patient Critical Care time: I spent a total of [] minutes of critical care time on this patient's care today; this time is exclusive of procedural time. Quality VTE Deep Vein Thrombosis/Pulmonary Embolism Present on Admission: No
[2021-06-25] MEDS: LACTATED RINGERS 1,000 ML 42 ML IV ×2 (17:13→19:06)
[2021-06-25] MEDS: ACETAMINOPHEN 325 MG TABLET 975 MG PO (17:16)
[2021-06-25] MEDS: GABAPENTIN 300 MG CAPSULE PO (17:16)
--- NOTE | 2021-06-25 17:32 | DI.RAD.S_ITS ---
PROCEDURE: XR HIP W PEL IF DONE LT 2V INDICATIONS: hip fracture TECHNIQUE: AP pelvis and lateral view of the left hip acquired. [facility], 18:26. FINDINGS: Bones: Patient is status post left hip arthroplasty, with hardware components in expected positions. The hip joint appears congruent. The visualized bony structures appear intact. Soft tissues: Overlying postoperative changes are noted. No suspicious soft tissue densities. IMPRESSION: Expected appearance of the left hip arthroplasty. Dictated by: Dennys Mendez M.D. on 06/28/2021 at 23:08 Approved by: Dennys Mendez M.D. on 06/28/2021 at 23:10
--- NOTE | 2021-06-25 17:34 | P.HP_ITS ---
History of Present Illness History of Present Illness Date Patient Seen: 06/25/21 Time Patient Seen: 08:00 Chief complaint: GLF Narrative: 70-year-old homeless gentleman who was in the [employer] parking lot when he fell and noted the onset of left hip pain. He is well-known to the emergency room at [facility] and lives locally in his car. He notes ongoing left hip pain. He does say that he has some history of some issues with his heart and hypertension but is rarely able to take medications. He also has some problems with incontinence. Patient History Medical History Cellulitis of left leg Congestive heart failure Elevated troponin Essential hypertension Hypertension Surgical History No pertinent past surgical history Family & Social History Family History Mother Hypertension Sister Hypertension Social History: household members none Prior Living Arrangements Homeless Safety & Behavioral: Feels Safe in Current Yes Environment Been Physically Hurt or No Threatened By a Person Suicidal Ideation Description None Suicide Plan Description No Plan Tobacco & Substance use: Tobacco type cigarettes Smoking Status Current every day smoker alcohol intake current alcohol intake frequency other Substance Use Type does not use Meds Home Medications and Allergies Home Medications Medication Instructions Recorded Confirmed Type melatonin 10 mg tablet 10 mg PO BEDTIME PRN 06/24/21 06/24/21 History Allergies Allergy/AdvReac Type Severity Reaction Status Date / Time No Known Drug Allergies Allergy Verified 03/30/21 11:34 Review of Systems Review of Systems Narrative: He slipped and fell the [employer] parking lot. He denies lightheadedness or shortness of breath prior to fall. He did note difficulty with his left leg and was unable to get up but did not have other neurological symptoms. Exam Vital Signs (past 8 hours): - 06/25/21 10:39 06/25/21 12:00 06/25/21 14:24 Temperature 98.3 F Pulse Rate 91 H Respiratory Rate 17 Blood Pressure 158/95 H Pulse Oximetry 95 98 98 06/25/21 15:43 06/25/21 16:45 Temperature 98.5 F 99.4 F Pulse Rate 94 H 86 Respiratory Rate 18 20 Blood Pressure 194/95 H 178/109 H Pulse Oximetry 98 100 Oxygen Delivery Method Room Air Oxygen Flow Rate 0 Narrative Exam Narrative: HEENT is benign, lungs are clear, cor regular rate and rhythm, abdomen benign, left hip is externally rotated there is severe pain with range of motion, he has bilateral lower extremity edema and lymphedema, is able to fire his toe flexors and extensors with trace motion Objective Labs Result Diagrams: 06/25/21 02:55 06/25/21 02:55 Labs: Laboratory Results - last 24 hr 06/24/21 06/24/21 06/24/21 19:35 19:49 20:55 WBC 17.8 H RBC 5.09 Hgb 16.5 Hct 49.1 MCV 96.3 MCH 32.4 MCHC 33.5 RDW 14.0 Plt Count Not Reportable Neut % (Auto) Not Reportable Lymph % (Auto) Not Reportable [place] % (Auto) Not Reportable Eos % (Auto) Not Reportable Baso % (Auto) Not Reportable Neut # (Auto) Lymph # (Auto) Not Reportable [place] # (Auto) Not Reportable Eos # (Auto) Baso # (Auto) Not Reportable Total Counted 100 Seg Neutrophils % 83.0 H Band Neutrophils % 7.0 Lymphocytes % (Manual) 7.0 L Monocytes % (Manual) 2.0 Eosinophils % (Manual) 1.0 L Neutrophils # (Manual) 47587 H Platelet Estimate Adequate on smear RBC Morphology Normal morphology PT INR APTT Sodium Potassium Chloride Carbon Dioxide BUN Creatinine Estimated GFR BUN/Creatinine Ratio Glucose Hemoglobin A1c Calcium Magnesium Total Creatine Kinase CK-MB (CK-2) CK-MB (CK-2) Rel Index Troponin I NT-Pro-B Natriuret Pep Procalcitonin Urine Color Urine Appearance Urine pH Ur Specific [place] Urine Protein Urine Glucose (UA) Urine Ketones Urine Occult Blood Urine Nitrate Urine Bilirubin Urine Urobilinogen Ur Leukocyte Esterase Urine RBC Urine WBC Urine Bacteria Ur Culture Indicated? Nasal Screen MRSA (PCR) U Opiates 300ng/mL cut Negative Ur Oxycodone Screen Negative Urine Methadone Screen Negative Ur Barbiturates Screen Negative U Tricyclic Antidepress Negative Ur Phencyclidine Scrn Negative Ur Amphetamines Screen Negative U Methamphetamines Scrn Negative Ur MDMA Scrn (Ecstasy) Negative U Benzodiazepines Scrn Negative Urine Cocaine Screen Negative U Marijuana (THC) Screen Negative Ethyl Alcohol SARS-CoV-2 (PCR) Negative 0906/24/21 06/24/21 20:55 20:55 20:55 WBC RBC Hgb Hct MCV MCH MCHC RDW Plt Count Neut % (Auto) Lymph % (Auto) [place] % (Auto) Eos % (Auto) Baso % (Auto) Neut # (Auto) Lymph # (Auto) [place] # (Auto) Eos # (Auto) Baso # (Auto) Total Counted Seg Neutrophils % Band Neutrophils % Lymphocytes % (Manual) Monocytes % (Manual) Eosinophils % (Manual) Neutrophils # (Manual) Platelet Estimate RBC Morphology PT INR APTT Sodium 140 Potassium 4.2 Chloride 104 Carbon Dioxide 33 H BUN 21 H Creatinine 0.71 Estimated GFR > 60.0 BUN/Creatinine Ratio 29.6 H Glucose 101 Hemoglobin A1c Calcium 9.8 Magnesium 2.3 Total Creatine Kinase 43 L CK-MB (CK-2) TNP CK-MB (CK-2) Rel Index TNP Troponin I < 0.012 NT-Pro-B Natriuret Pep 1050 H Procalcitonin 0.03 Urine Color Urine Appearance Urine pH Ur Specific [place] Urine Protein Urine Glucose (UA) Urine Ketones Urine Occult Blood Urine Nitrate Urine Bilirubin Urine Urobilinogen Ur Leukocyte Esterase Urine RBC Urine WBC Urine Bacteria Ur Culture Indicated? Nasal Screen MRSA (PCR) U Opiates 300ng/mL cut Ur Oxycodone Screen Urine Methadone Screen Ur Barbiturates Screen U Tricyclic Antidepress Ur Phencyclidine Scrn Ur Amphetamines Screen U Methamphetamines Scrn Ur MDMA Scrn (Ecstasy) U Benzodiazepines Scrn Urine Cocaine Screen U Marijuana (THC) Screen Ethyl Alcohol < 10 SARS-CoV-2 (PCR) 06/25/21 06/25/21 06/25/21 00:03 02:30 02:55 WBC RBC Hgb Hct MCV MCH MCHC RDW Plt Count Neut % (Auto) Lymph % (Auto) [place] % (Auto) Eos % (Auto) Baso % (Auto) Neut # (Auto) Lymph # (Auto) [place] # (Auto) Eos # (Auto) Baso # (Auto) Total Counted Seg Neutrophils % Band Neutrophils % Lymphocytes % (Manual) Monocytes % (Manual) Eosinophils % (Manual) Neutrophils # (Manual) Platelet Estimate RBC Morphology PT INR APTT Sodium Potassium Chloride Carbon Dioxide BUN Creatinine Estimated GFR BUN/Creatinine Ratio Glucose Hemoglobin A1c 5.3 Calcium Magnesium Total Creatine Kinase CK-MB (CK-2) CK-MB (CK-2) Rel Index Troponin I NT-Pro-B Natriuret Pep Procalcitonin Urine Color Red Urine Appearance Cloudy Urine pH 5.5 Ur Specific [place] 1.020 Urine Protein 1+ H Urine Glucose (UA) Negative Urine Ketones 3+ H Urine Occult Blood 3+ H Urine Nitrate Negative Urine Bilirubin Negative Urine Urobilinogen 0.2 Ur Leukocyte Esterase Trace H Urine RBC >100/hpf H Urine WBC 1-5/hpf Urine Bacteria None seen Ur Culture Indicated? Specimen cultured Nasal Screen MRSA (PCR) Negative for mrsa U Opiates 300ng/mL cut Ur Oxycodone Screen Urine Methadone Screen Ur Barbiturates Screen U Tricyclic Antidepress Ur Phencyclidine Scrn Ur Amphetamines Screen U Methamphetamines Scrn Ur MDMA Scrn (Ecstasy) U Benzodiazepines Scrn Urine Cocaine Screen U Marijuana (THC) Screen Ethyl Alcohol SARS-CoV-2 (PCR) 06/25/21 06/25/21 06/25/21 02:55 02:55 02:55 WBC 10.0 RBC 4.75 Hgb 15.1 Hct 46.0 MCV 96.8 MCH 31.9 MCHC 32.9 RDW 13.6 Plt Count 321 Neut % (Auto) 82.0 H Lymph % (Auto) 8.8 L [place] % (Auto) 8.1 Eos % (Auto) 0.1 L Baso % (Auto) 1.0 Neut # (Auto) 8200 H Lymph # (Auto) 900 L [place] # (Auto) 800 Eos # (Auto) 0 Baso # (Auto) 100 Total Counted Seg Neutrophils % Band Neutrophils % Lymphocytes % (Manual) Monocytes % (Manual) Eosinophils % (Manual) Neutrophils # (Manual) Platelet Estimate RBC Morphology PT 12.1 INR 1.1 APTT 32 Sodium 139 Potassium 3.5 Chloride 105 Carbon Dioxide 30 BUN 20 Creatinine 0.67 Estimated GFR > 60.0 BUN/Creatinine Ratio 29.9 H Glucose 116 H Hemoglobin A1c Calcium 9.3 Magnesium Total Creatine Kinase CK-MB (CK-2) CK-MB (CK-2) Rel Index Troponin I NT-Pro-B Natriuret Pep 1310 H Procalcitonin Urine Color Urine Appearance Urine pH Ur Specific [place] Urine Protein Urine Glucose (UA) Urine Ketones Urine Occult Blood Urine Nitrate Urine Bilirubin Urine Urobilinogen Ur Leukocyte Esterase Urine RBC Urine WBC Urine Bacteria Ur Culture Indicated? Nasal Screen MRSA (PCR) U Opiates 300ng/mL cut Ur Oxycodone Screen Urine Methadone Screen Ur Barbiturates Screen U Tricyclic Antidepress Ur Phencyclidine Scrn Ur Amphetamines Screen U Methamphetamines Scrn Ur MDMA Scrn (Ecstasy) U Benzodiazepines Scrn Urine Cocaine Screen U Marijuana (THC) Screen Ethyl Alcohol SARS-CoV-2 (PCR) X-rays show a left femoral neck fracture which is displaced Assessment & Plan Assessment and plan (1) Left displaced femoral neck fracture: Status: Acute Plan: I have recommended a left hip unipolar. The options risks benefits and complications were discussed in detail with the patient. He does have multiple medical problems and I discussed with the hospitalist. They feel that they have stabilized him to the best of her ability and he were going to proceed with surgery today. Time Spent With Patient Critical Care time: I spent a total of [] minutes of critical care time on this patient's care today; this time is exclusive of procedural time. Quality VTE Deep Vein Thrombosis/Pulmonary Embolism Present on Admission: No
--- NOTE | 2021-06-25 17:45 | P.OP_ITS ---
Operative Date/Time/Diagnoses Date of procedure: 06/25/21 Time of procedure: 17:50 Pre-op diagnosis: Left femoral neck fracture displaced Post-op diagnosis: same Procedure & Clinicians Procedure: Left hip cemented unipolar Same procedure as scheduled: Yes Indications: The patient has had progressively worsening left hip pain with radiographic changes consistent with arthritis. Non-operative management has failed and the patient has requested total hip replacement. The risks, benefits and alternatives to surgery were discussed with the patient prior to proceeding. Risks discussed included, but were not limited to, failure to relieve pain, leg length discrepancy, dislocation, stiffness, infection, nerve damage, deep venous thrombosis, pulmonary embolism, stroke, coma, heart attack, permanent paralysis and , as well as the potential need for eventual revision of the prosthetic. Surgeon: Jemma Mena Canned Food Reconditioning Inspector: Imelda Joe Anesthesia Type: General Operative Notes Findings: Displaced left femoral neck fracture, soft bone, good stability Closure Type: primary Specimen(s): none sent Prosthetic devices, grafts, tissues, transplants, or devices: Mena and nephew a size 14 high offset Synergy cemented, 49 mm head, +0 neck Applied: drain(s) Estimated Blood Loss (mL): 250 Blood products transfused: none Procedure in detail: The patient was seen in the pre-operative area, where the patient identified the left hip as the operative site and this was marked with my initials. The patient received pre-operative antibiotics and was taken to the operating room and placed on the operative table in the supine position after satisfactory anesthesia. A time clock mechanic out was performed. Patient was placed in the lateral decubitus position and all bony prominences were carefully padded and the arms were appropriately position. The left lower extremity was prepared from the ankle to the iliac crest with ChloroPrep in the usual fashion and draped through sterile drapes. The hip was approached through posterolateral approach. Dissection was carried out down through skin and subcutaneous tissues. The fascia was opened. Gelpi retractors were placed. A Charnley retractor was placed. A small amount of inflamed bursa was resected. The piriformis was identified and tagged. The other short external rotators and capsule were carefully stripped from the posterior aspect of the femur. They were tagged and carefully retracted. The femoral neck was brought up and an osteotomy was made of the residual femoral neck approximately 1 fingerbreadth above the lesser trochanter. The head was removed without difficulty. It was carefully sized. The acetabulum was meticulously irrigated with normal saline. There were [mild] changes in the acetabulum. The acetabulum was carefully protected with an E tape. The canal was opened with a box cutting osteotome, followed by a T-handled reamer and a lateralizing reamer. The tapered reamers were then used, followed by sequential broaching. A trial head and neck were then placed and the hip relocated and checked for leg length and stability. The patient was stable in the position of sleep, of squatting, and could be put through a range of motion with 45 degrees internal rotation without dislocation. At 90 degrees flexion, internal rotation to 80? was possible before dislocation. This was felt to be satisfactory and the appropriate components were opened, and the trials were removed. The femoral canal was sized and a distal cement restrictor was placed. The bone was meticulously cleaned with pulse lavage. The canal was packed with vaginal packing with epinephrine. Antibiotics cement was mixed and carefully pressurized into the femoral canal. The femoral component was placed without difficulty. A repeat trial reduction showed good range of motion and stability. Patient had good range of motion and stability. The final head and neck were placed after carefully irrigating the wound. The capsulomuscular flap was then repaired to the greater trochanter though an awl hole using the tag sutures. The short external rotators were repaired with Vicryl. A deep drain was placed and brought out anteriorly. The fascia nikki was closed with Vicryl. A subcutaneous drain was placed. The subcutaneous layer was closed with interrupted 3-0 Vicryl, and the skin with a running 3-0 V-Lock suture and SteriStrips. An Aquacel Ag dressing was applied and the patient was taken to recovery having tolerated the procedure well. Complications: none Post-operative Condition: stable Disposition: Acute Care Plan for aftercare: The patient will be maintained on a standard total hip rep lacement protocol with weight bearing as tolerated and posterior hip precautions. The patient will receive Aspirin and sequential compression devices for DVT prophylaxis. The patient will be discharged home when safe for the home environment.
[2021-06-25] MEDS: CEFAZOLIN 1 GM VIAL 2 GM IV (17:52)
[2021-06-25] MEDS: TRANEXAMIC ACID 1,000 MG VIAL 2000 MG INJ ×2 (17:53→19:09)
--- NOTE | 2021-06-25 18:21 | SUR.OPER ---
Lateral on padded OR bed. Gel axillary roll. Arms secured on padded armboard with pillow supporting top arm. Padded hip positioner braces x4 - anterior and posterior chest and pelvis. Additional gel pad used anterior pelvis. Gel pad under bottom leg from knee to foot and secured with tape over sheet.
[2021-06-25] MEDS: BUPIVACAINE LIPOSOME 266 MG/20 ML VIAL INJ (18:31)
[2021-06-25] MEDS: BUPIVACAINE 0.25% (PF) VIAL 60 ML INJ (18:32)
[2021-06-25] MEDS: EPINEPHrine 1 MG/ML 0.15 MG INJ (18:33)
[2021-06-25] MEDS: SODIUM CHLORIDE IRRIG SOLUTION 250 ML, EPINEPHrine 1 MG IRR (18:55)
--- NOTE | 2021-06-25 21:08 | SUR.PHASEI ---
Patient transferred to room 220 by this Rn in bed. SBAR report to Kinza GARCIA. Bed locked in low position. Call light in reach.
[2021-06-25] MEDS: diphenhydrAMINE 50 MG/ML VIAL IV (21:59)
[2021-06-25] MEDS: LACTATED RINGERS 1,000 ML 125 ML IV (21:59)
[2021-06-26] VITALS (10 sets, daily range): BP systolic 140–182; BP diastolic 85–109; PULSE 88–108; RESP 15–22; TEMP 36.8–37.1; O2SAT 94–98
[2021-06-26] MEDS: CEFAZOLIN 1 GM VIAL 2 GM IV ×2 (01:55→11:38)
[2021-06-26] MEDS: METOPROLOL TARTRATE 5 MG/5 ML INJ IV (03:30)
--- NOTE | 2021-06-26 03:54 | PC.NURSE ---
Addendum entered by Judith Mitchell R.N. 06/26/21 05:39: More awake this morning. Talkative but confused. Knew his name, birthdate, age and situation but otherwise not oriented. Denies pain but medicated with scheduled Ibuprofen. Restraints released and now has 1:1 observation to determine if patient will attempt to pull at tubes again or not. Repositioned onto left side. BP improved slightly to 160/98 Original Note: Patient will open eyes but no verbal response to questions asked. Lying quietly but as soon as wrist restraints released begins pulling at telemetry leads/hemovac/catheter. Breath sounds diminished at bases but CTA with RA sat of 92%. HR irregular w/telemetry reading of afib RVR earlier and now afib CVR. BP at start of shift was 129/99 but at last check was 163/109 on left arm and 182/109 on right arm. Carrillo SELF, informed of BP readings and order received to give IV Metoprolol now and q6h prn. BT hypoactive and abdomen is soft. Aquacel dressing to left posterior hip is CDI; hemovac is intact and compressed. Indwelling catheter is patent and urine is clear pati. Not moving himself so staff are repositioning q2h maintaining posterior hip precautions. Continues to have 2-3+ edema in bilateral LE. Coversite dressing to right lower leg is CDI. Wearing bilateral calf SCD's. FLACC score is 1. Fall risk score is high and bed alarm is activated. Seizure pads in place. CIWA score is 0.
[2021-06-26] MEDS: IBUPROFEN 400 MG TABLET PO ×5 (05:07→20:41)
[2021-06-26] MEDS: LACTATED RINGERS 1,000 ML 125 ML IV (05:53)
[2021-06-26 08:24] LABS: Add Manual Diff / Slide Review NO; Basophils Absolute Auto 0 /uL (0-100); Basophils Percent Auto 0.1 % (0-2); Eosinophils Absolute Auto 0 /uL (0-450); Hematocrit 40.6 % (41-53); Hemoglobin 13.6 g/dL (13.5-17.5); Lymphocytes Absolute Auto 500 /uL (1100-4500); Lymphocytes Percent Auto 4.5 % (25-40); Mean Corpuscular HGB Conc 33.5 % (30-36); Mean Corpuscular Hemoglobin 32.4 PG (26-34); Mean Corpuscular Volume 96.9 fL (80-100); Monocytes Absolute Auto 500 /uL (0-900); Monocytes Percent Auto 4.6 % (3-14); Neutrophils Absolute Auto 10900 /uL (1500-7000); Neutrophils Percent Auto 90.8 % (50-75); Platelet Count 262 X10^3/uL (150-400); Red Blood Cell Count 4.19 X10^6/uL (4.5-5.9); Red Cell Distribution Width 14.1 % (11.6-14.8)
[2021-06-26] MEDS: DOCUSATE 100 MG CAPSULE PO ×2 (08:50→20:41)
[2021-06-26] MEDS: ASPIRIN EC 81 MG TABLET PO ×2 (08:50→20:41)
[2021-06-26] MEDS: ACETAMINOPHEN 325 MG TABLET 650 MG PO ×3 (08:50→20:40)
[2021-06-26] MEDS: THIAMINE 100 MG TABLET PO (08:50)
[2021-06-26] MEDS: FOLIC ACID 1 MG TABLET PO (08:50)
[2021-06-26] MEDS: MULTIVITAMIN 1 TABLET 1 TAB PO (08:50)
--- NOTE | 2021-06-26 09:46 | PM.PNPO.1 ---
Subjective Subjective Date Patient Seen: 06/26/21 Time Patient Seen: 09:46 Interval history: Patient states he is doing well overall but reports moderate pain levels. At this time patient denies fever, chills, nausea, chest pain, or shortness of breath. Patient has reported previous episodes of nausea without emesis. He reports pain in his left knee on throughout his left thigh. Exam Vital Signs (past 8 hours): - 06/26/21 03:00 06/26/21 04:00 06/26/21 05:15 Temperature 98.3 F Pulse Rate 99 H 88 91 H Respiratory Rate 18 Blood Pressure 182/109 H 151/102 H 160/98 H Pulse Oximetry 96 96 06/26/21 07:24 Temperature 98.3 F Pulse Rate 108 H Respiratory Rate 16 Blood Pressure 142/100 H Pulse Oximetry 94 Oxygen Delivery Method Room Air Oxygen Flow Rate 0 Narrative Exam Narrative: 70-year-old male postop day 1 status post left hip cemented unipolar. Patient is resting comfortably in bed, is in no acute distress, and is alert and oriented x3. Skin is warm and dry, and the skin surrounding the incision site is free of erythema, warmth, induration, or discharge. Dressing over the incision site is clean, dry, and intact. Wound drain in place is actively draining scant bright red blood. Good sensation appreciated throughout the bilateral lower extremities to light touch with exception to the dorsal aspect of the left foot, which the patient states is baseline for him. Tenderness to palpation appreciated over the anteromedial aspect of the left thigh. DP pulses palpated bilaterally, irregularly irregular. No other signs of DVT appreciated. Const General: cooperative and comfortable Resp Effort & Inspection: normal respiratory effort and able to speak in complete sentences Skin General: no rashes or lesions noted Objective Labs Result Diagrams: 06/26/21 07:45 06/25/21 02:55 Labs: Laboratory Results - last 24 hr 06/26/21 07:45 WBC 12.0 H RBC 4.19 L Hgb 13.6 Hct 40.6 L MCV 96.9 MCH 32.4 MCHC 33.5 RDW 14.1 Plt Count 262 Neut % (Auto) 90.8 H Lymph % (Auto) 4.5 L [place] % (Auto) 4.6 Eos % (Auto) 0.0 L Baso % (Auto) 0.1 Neut # (Auto) 73541 H Lymph # (Auto) 500 L [place] # (Auto) 500 Eos # (Auto) 0 Baso # (Auto) 0 PFSH Medical History Cellulitis of left leg Congestive heart failure Elevated troponin Essential hypertension Hypertension Surgical History No pertinent past surgical history Family History Mother Hypertension Sister Hypertension Social History household members: none housing: other occupational status: unemployed Smoking Status: Current every day smoker alcohol intake: current additional social history: Lives in a hotel Assessment & Plan Post-op Postoperative Procedures: Procedures Operation Date: 06/25/21 16:45 Actual Procedure Side Surgeon p left hip partial replacement Left Jemma Mena MD Postoperative day: 1 Postoperative status: doing well Postoperative plan: ambulate Postoperative plan narrative: Patient is to work on ambulation with the assistance of a front wheeled walker with physical therapy. He is to remain weight-bearing as tolerated and in standard total hip replacement protocol. Current pain management regimen is to be continued as it has adequately controlled the patient's pain level. Aspirin 81 mg twice daily is to be continued for DVT prophylaxis along with the assistance of sequential compression devices. Medicine is following the patient for his chronic conditions including but not limited to hypertension, diastolic heart failure, atrial fibrillation. Patient will likely need group home facility once he has been cleared for discharge. Quality VTE Deep Vein Thrombosis/Pulmonary Embolism Present on Admission: No
--- NOTE | 2021-06-26 09:54 | PC.NURSE ---
Addendum entered by Idania Muller R.N. 06/26/21 11:42: Patient has 3+ pitting edema to his lower extremities, there is no wheepiness noted. Patient has been heplocked. Addendum entered by Idania Muller R.N. 06/26/21 11:26: Patient made a comment early that he had hoped that he did not have a stroke. He has been leaning to the left this morning, and welding operator states that he was drooling when drinking. aware and did a NIH stroke scale and test with him and it turned out to be a 0. He was able to answer and do all things appropriately. He is doing well this afternoon and is going to be getting up with PT now. Original Note: Patient has been pleasant and cooperative with care this morning, he states that his pain is minimal. Given Tylenol and Ibuprofen for discomfort, stool softner, and some vitamins. Patient has a hx of drinking, seizure pads are in place, he has not showed any symptoms of withdrawal. He has multiple bruises, an incision to his l.hip that is covered with an aquacel and a hemovac drain is present. He is putting out bloody drainage. Patient ate well at breakfast but stated that it was horrible. He is comfortable now and watching television.
--- NOTE | 2021-06-26 12:00 | PT.IIE ---
Current Diagnoses Fracture of unspecified part of neck of left femur, initial encounter for closed fracture (06/24/21) Unspecified intracapsular fracture of left femur, initial encounter for closed fracture (06/24/21) Surgery Performed Operation Date: 06/25/21 16:45 Actual Procedures p left hip partial replacement(Left) - Jemma Mena MD Medical History (Last Reviewed 06/26/21 @ 09:49 by Milo Dorsey PA-C) Cellulitis of left leg Congestive heart failure Elevated troponin Essential hypertension Hypertension Physical Therapy Inpatient Evaluation/Re-Eval M1 PT/OT-IP Prior Functional Status Start: 06/26/21 17:03 Freq: NEEDED Status: Active Protocol: Document 06/26/21 12:00 DLM (Rec: 06/26/21 17:17 DLM [id number]) Medical Review Prior Functional Status Medical History Reviewed Yes Diet/Fluid Consistency Regular Communication Wears glasses, WFL for communication Mobility and Gait Independent, uses cane sometimes Activities of Daily Living and IADL's Independent, limited by his homelessness Social History Household Members none Living Arrangements Homeless Home Equipment Straight Cane Additional Social History Comment He live in his vehicle, his Sister lives in [place], has supportive friends in the community M2 PT-IP Current Condition Start: 06/26/21 17:03 Freq: NEEDED Status: Active Protocol: Document 06/26/21 12:00 DLM (Rec: 06/26/21 17:17 DLM [id number]) Physical Therapy Current Condition Current Condition Evaluation Date 06/26/21 Treatment Diagnosis left TAN, posterior, s/p fall, gait impaired Onset Date 06/24/21 Precautions Posterior Hip Precautions No Hip Flexion > 90 degrees,No Hip Internal Rotation,No Hip Adduction Weight Bearing Status Weight Bearing Status Weight Bear as Tolerated M3 PT-IP Subjective Start: 06/26/21 17:03 Freq: NEEDED Status: Active Protocol: Document 06/26/21 12:00 DLM (Rec: 06/26/21 17:17 DLM [id number]) Subjective Physical Therapy Visit Type Type Initial Evaluation Visit Start Time 11:30 Visit Stop Time 12:00 Total Visit Minutes 30 Number of MOTORIZED SQUAD CAPTAIN Visits 0 Physical Therapy Visit Comments Patient Comments He is very worried about getting in touch with his friend at this time and is frustrated that he is unable to use the phone Patient Goals he wants to get better Therapy Pain Assessment Pain When Pain Assessed During Mobility Pain Present Pain Present Pain Reported Location Left Hip Intensity 5 Scale Used Numeric (0 - 10) Description Aching Pain Behaviors Guarding,Wincing Pain Management Techniques Modification of Treatment,Re- positioning,Timing of Activity with Medications M4 PT-IP Mobility and Gait Start: 06/26/21 17:03 Freq: NEEDED Status: Active Protocol: Document 06/26/21 12:00 [facility] (Rec: 06/26/21 17:17 [facility] [id number]) PT-Bed Mobility Assessment Supine to Sit Supine to Sit Moderate Assistance Scooting Scooting to Edge of Bed Moderate Assistance Scooting Up and Down in Bed Dependent PT-Transfer Assessment Sit to and From Stand Sit to and from Stand Moderate Assistance,Use of Upper Extremities Equipment Transfer Assistive Device Gait Belt,Front Wheeled Walker Transfers Transfer Destination Chair Transfer Technique Stand Step Pivot Transfer Ability Level of Assist Moderate Assistance,Maximum Assistance,Use of Upper Extremities Comments Mobility Comments Pt fatigued quickly during transfer and the chair had to be pulled up behind him to safely sit, he has difficulty advancing his feet especially right foot to take functional steps, posture is very flexed in standing Gait Assessment Comments Gait Comments he is not able to progress to gait this visit, fatigues quickly with transfers PT-Balance Assessment Sitting Balance and Reactions Static Sitting Balance Ability Good Dynamic Sitting Balance Ability Good Standing Balance and Reactions Static Standing Balance Ability Fair Dynamic Standing Balance Ability Poor Device Used FWW M5 PT-IP Objective Assessments Start: 06/26/21 17:03 Freq: NEEDED Status: Active Protocol: Document 06/26/21 12:00 [facility] (Rec: 06/26/21 17:17 [facility] [id number]) Orientation Orientation/Cognition Level of Alertness Alert Orientation Name,Birthday,Place,Situation Safety Awareness Decreased Safety Awareness Memory Description Short Term Impaired Comments he is pleasant and cooperative , drooling noted Gross Range of Motion Upper Extremity ROM Assessment Within Functional Limits Lower Extremity ROM Assessment Left Impaired Impairments left limited by TAN precautions and pain Strength Upper Extremity Strength Assessment Within Functional Limits Lower Extremity Strength Assessment Left Impaired Hip needs assist to move LE in bed , standing flexion 2+/5 Knee ext 2+/5 with thigh pain Ankle DF 4/5 Comments Strength Comments left hip limited by post TAN precautions Coordination Assessment Gross Coordination Gross Coordination WNL Sensation Assessment Sensation Gross Sensation WNL Comments Sensation Comments chronic LE edema, no numbness reported by pt Muscle Tone Muscle Tone WNL Yes M6 PT-IP Treatment Start: 06/26/21 17:03 Freq: NEEDED Status: Active Protocol: Document 06/26/21 12:00 DLM (Rec: 06/26/21 17:17 DLM [id number]) Physical Therapy Treatment Exercises Exercises Ankle Pumps Education Education Provided Precautions,Weight Bearing Status,Post-Op Packet,Safety M7 PT-IP Assessment and Plan Start: 06/26/21 17:03 Freq: NEEDED Status: Active Protocol: Document 06/26/21 12:00 DLM (Rec: 06/26/21 17:17 DLM [id number]) PT Summary Assessment and Plan Potential Rehabilitation Potential Good Status of Condition at Evaluation Evolving Summary Impairments Pain,ROM,Strength,Balance, Cognition,Bed Mobility, Transfers,Gait,Activity Tolerance Assessment Summary Nain is alert and resting in bed. He agreed to get up this visit. He was educated in his post hip precautions but he shows poor awareness of them during mobility. Pt transfered up to [facility]. He has very flexed posture in standing with the fWW and has difficulty taking functional steps to complete his transfer . He is independent at baseline and will need SNF rehab at discharge to assist in his recovery. He is not safe to return to living in his vehicle at this time and has no one to stay with at discharge. Goals Bed Mobility Goal Minimal Assistance Transfer Goal Minimal Assistance,Moderate Assistance,Front Wheeled Walker Gait Goal Minimal Assistance,Moderate Assistance,Front Wheel Walker Gait Distance 25 feet Days to Meet Goals 7 Frequency of Treatment Frequency Of Treatment Twice a Day Treatment Plan Physical Therapy Treatment Plan Bed Mobility Training,Transfer Training,Gait Training, Therapeutic Exercise,Balance Retraining,Post Op Education, Discharge Planning,Hot or Cold Pack,Neuromuscular Re-ed Recommendations To Nursing Amount of Assist Needed 2 Person Assist Discharge Recommendations PT Discharge Recommendations SNF Rehab Transportation Needs at Discharge Wheelchair/Cabulance
--- NOTE | 2021-06-26 17:00 | PT.IPTN ---
Current Diagnoses Fracture of unspecified part of neck of left femur, initial encounter for closed fracture (06/24/21) Unspecified intracapsular fracture of left femur, initial encounter for closed fracture (06/24/21) Surgery Performed Operation Date: 06/25/21 16:45 Actual Procedures p left hip partial replacement(Left) - Jemma Mena MD Physical Therapy Treatment Note M2 PT-IP Current Condition Start: 06/26/21 17:03 Freq: NEEDED Status: Active Protocol: Document 06/26/21 12:00 DLM (Rec: 06/26/21 17:17 DLM [id number]) Physical Therapy Current Condition Current Condition Evaluation Date 06/26/21 Treatment Diagnosis left TAN, posterior, s/p fall, gait impaired Onset Date 06/24/21 Precautions Posterior Hip Precautions No Hip Flexion > 90 degrees,No Hip Internal Rotation,No Hip Adduction Weight Bearing Status Weight Bearing Status Weight Bear as Tolerated M3 PT-IP Subjective Start: 06/26/21 17:03 Freq: NEEDED Status: Active Protocol: Document 06/26/21 17:00 DLM (Rec: 06/26/21 17:31 DLM [id number]) Subjective Physical Therapy Visit Type Type Treatment Note Visit Start Time 16:35 Visit Stop Time 17:00 Total Visit Minutes 25 Number of NANOSCIENCE TECHNICIAN Visits 0 Physical Therapy Visit Comments Patient Comments His friend brought him his phone and some coffee which made him happy Patient Goals he wants to get better Therapy Pain Assessment Pain When Pain Assessed During Mobility Pain Present Pain Present Pain Reported Location Left Hip Intensity 4 Scale Used Numeric (0 - 10) Description Aching Pain Behaviors Guarding,Wincing Pain Management Techniques Modification of Treatment,Re- positioning,Timing of Activity with Medications M4 PT-IP Mobility and Gait Start: 06/26/21 17:03 Freq: NEEDED Status: Active Protocol: Document 06/26/21 17:00 DLM (Rec: 06/26/21 17:31 DLM [id number]) PT-Transfer Assessment Sit to and From Stand Sit to and from Stand Minimal Assistance,Moderate Assistance,Use of Upper Extremities Equipment Transfer Assistive Device Gait Belt,Front Wheeled Walker Comments Mobility Comments Nain wants to stay up in the recliner for dinner. Static standing performed with fWW and focus on more errect posture. Attemped stepping in place but pt unable to lift his feet off floor bilaterally . Gait Assessment Comments Gait Comments he is unable this visit PT-Balance Assessment Sitting Balance and Reactions Static Sitting Balance Ability Good Dynamic Sitting Balance Ability Good Standing Balance and Reactions Static Standing Balance Ability Fair Dynamic Standing Balance Ability Poor Device Used FWW M5 PT-IP Objective Assessments Start: 06/26/21 17:03 Freq: NEEDED Status: Active Protocol: Document 06/26/21 12:00 DLM (Rec: 06/26/21 17:17 DL [id number]) Orientation Orientation/Cognition Level of Alertness Alert Orientation Name,Birthday,Place,Situation Safety Awareness Decreased Safety Awareness Memory Description Short Term Impaired Comments he is pleasant and cooperative , drooling noted Gross Range of Motion Upper Extremity ROM Assessment Within Functional Limits Lower Extremity ROM Assessment Left Impaired Impairments left limited by TAN precautions and pain Strength Upper Extremity Strength Assessment Within Functional Limits Lower Extremity Strength Assessment Left Impaired Hip needs assist to move LE in bed , standing flexion 2+/5 Knee ext 2+/5 with thigh pain Ankle DF 4/5 Comments Strength Comments left hip limited by post TAN precautions Coordination Assessment Gross Coordination Gross Coordination WNL Sensation Assessment Sensation Gross Sensation WNL Comments Sensation Comments chronic LE edema, no numbness reported by pt Muscle Tone Muscle Tone WNL Yes M6 PT-IP Treatment Start: 06/26/21 17:03 Freq: NEEDED Status: Active Protocol: Document 06/26/21 17:00 DLM (Rec: 06/26/21 17:31 [facility] [id number]) Physical Therapy Treatment Exercises Exercises Ankle Pumps,Gluteal Sets, Seated Knee Flexion/Extension Education Education Provided Precautions,Weight Bearing Status,Post-Op Packet,Safety Other Treatments Other Treatment Performed he is very distractible and difficult to keep him focused on exercises M7 PT-IP Assessment and Plan Start: 06/26/21 17:03 Freq: NEEDED Status: Active Protocol: Document 06/26/21 17:00 DLM (Rec: 06/26/21 17:31 DL [id number]) PT Summary Assessment and Plan Summary Impairments Pain,ROM,Strength,Balance, Cognition,Bed Mobility, Transfers,Gait,Activity Tolerance Progress Towards Goals Slow Progress due to Activity Tolerance Assessment Summary Nain is alert and sitting up in the recliner. He has been up since lunch and has not wanted to go back to bed. Educated pt in his post hip precautions but he continues to need assist to use them functionally. Static standing training performed with FWW with focus on improved weight bearing tolerance on LE's and improved standing posture. He continues to have generalized weakness that complicates his mobility. Recommend nursing use two person assist to get him back to bed due to his high fall risk and low activity tolerance. He is cooperative and pleasant with care. Continue to recommend SNF rehab at discharge. Goals Bed Mobility Goal Minimal Assistance Transfer Goal Minimal Assistance,Moderate Assistance,Front Wheeled Walker Gait Goal Minimal Assistance,Moderate Assistance,Front Wheel Walker Gait Distance 25 feet Days to Meet Goals 7 Frequency of Treatment Frequency Of Treatment Twice a Day Treatment Plan Physical Therapy Treatment Plan Bed Mobility Training,Transfer Training,Gait Training, Therapeutic Exercise,Balance Retraining,Post Op Education, Discharge Planning,Hot or Cold Pack,Neuromuscular Re-ed Recommendations To Nursing Amount of Assist Needed 2 Person Assist Discharge Recommendations PT Discharge Recommendations SNF Rehab Transportation Needs at Discharge Wheelchair/Cabulance
--- NOTE | 2021-06-26 18:19 | PM.PN.1 ---
Subjective Subjective Interval history: 70 y/o male s/p hip cemented unipolar prosthesis. He was confused last night postoperatively. He is awake alert and appropriate today patient does not complain of pain Exam Vital Signs (past 8 hours): - 06/26/21 11:27 06/26/21 15:30 06/26/21 16:40 Temperature 98.4 F 98.7 F Pulse Rate 103 H 98 H Respiratory Rate 16 18 Blood Pressure 155/85 H 140/91 H Pulse Oximetry 96 98 98 Oxygen Delivery Method Room Air Oxygen Flow Rate 0 Narrative Exam Narrative: Awake, Alert Male lying in bed [facility] Other: Normocephalic atraumatic, extraocular muscles are intact, visual leal are intact to confrontation Resp Other: Lungs clear to auscultation Cardio Other: Cardiac exam irregularly irregular normal S1-S2 with a 2/6 systolic ejection murmur GI Other: Abdomen soft and nontender Extrem Other: Extremity with 2+ edema bilateral Objective Labs Result Diagrams: 06/26/21 07:45 06/25/21 02:55 Labs: Laboratory Results - last 24 hr 06/26/21 07:45 WBC 12.0 H RBC 4.19 L Hgb 13.6 Hct 40.6 L MCV 96.9 MCH 32.4 MCHC 33.5 RDW 14.1 Plt Count 262 Neut % (Auto) 90.8 H Lymph % (Auto) 4.5 L [place] % (Auto) 4.6 Eos % (Auto) 0.0 L Baso % (Auto) 0.1 Neut # (Auto) 68018 H Lymph # (Auto) 500 L [place] # (Auto) 500 Eos # (Auto) 0 Baso # (Auto) 0 PFSH Medical History Cellulitis of left leg Congestive heart failure Elevated troponin Essential hypertension Hypertension Surgical History No pertinent past surgical history Family History Mother Hypertension Sister Hypertension Social History household members: none housing: other occupational status: unemployed Smoking Status: Current every day smoker alcohol intake: current additional social history: Lives in a hotel Assessment & Plan Assessment & Plan narrative: Status post left hip unipolar prosthesis for left hip fracture following a ground level fall -patient likely with underlying osteoporosis -he tolerated the procedure well -will start aspirin b.i.d. for DVT prophylaxis Chronic atrial fibrillation -rate controlled -will continue metoprolol for both rate and blood pressure Hypertension -continue metoprolol Disposition Continue PT OT, anticipate patient will need senior living at discharge. Time Spent With Patient Critical Care time: I spent a total of [] minutes of critical care time on this patient's care today; this time is exclusive of procedural time. Quality VTE Deep Vein Thrombosis/Pulmonary Embolism Present on Admission: No
[2021-06-26] MEDS: METOPROLOL ER 50 MG TABLET PO (20:41)
[2021-06-27] VITALS (17 sets, daily range): BP systolic 130–157; BP diastolic 70–107; PULSE 84–95; RESP 16–21; TEMP 36.4–37.2; O2SAT 94–110
[2021-06-27] MEDS: IBUPROFEN 400 MG TABLET PO ×6 (01:12→20:25)
[2021-06-27 05:08] LABS: Add Manual Diff / Slide Review NO; Basophils Absolute Auto 0 /uL (0-100); Basophils Percent Auto 0.4 % (0-2); Eosinophils Absolute Auto 100 /uL (0-450); Eosinophils Percent Auto 0.6 % (2-4); Hematocrit 38.9 % (41-53); Hemoglobin 12.9 g/dL (13.5-17.5); Lymphocytes Absolute Auto 1200 /uL (1100-4500); Lymphocytes Percent Auto 12.8 % (25-40); Mean Corpuscular HGB Conc 33.2 % (30-36); Mean Corpuscular Hemoglobin 32.4 PG (26-34); Mean Corpuscular Volume 97.7 fL (80-100); Monocytes Absolute Auto 600 /uL (0-900); Monocytes Percent Auto 6.9 % (3-14); Neutrophils Absolute Auto 7300 /uL (1500-7000); Neutrophils Percent Auto 79.3 % (50-75); Platelet Count 227 X10^3/uL (150-400); Red Blood Cell Count 3.98 X10^6/uL (4.5-5.9); Red Cell Distribution Width 14.2 % (11.6-14.8); White Blood Cell Count 9.2 X10^3/uL (4.5-11.0)
[2021-06-27] MEDS: ASPIRIN EC 81 MG TABLET PO ×2 (08:47→20:25)
[2021-06-27] MEDS: ACETAMINOPHEN 325 MG TABLET 650 MG PO ×3 (08:47→20:24)
[2021-06-27] MEDS: DOCUSATE 100 MG CAPSULE PO ×2 (08:48→20:24)
[2021-06-27] MEDS: FOLIC ACID 1 MG TABLET PO (08:48)
[2021-06-27] MEDS: METOPROLOL ER 50 MG TABLET PO ×2 (08:48→20:25)
[2021-06-27] MEDS: MULTIVITAMIN 1 TABLET 1 TAB PO (08:48)
[2021-06-27] MEDS: THIAMINE 100 MG TABLET PO (08:48)
--- NOTE | 2021-06-27 08:55 | CM.DPC ---
Addendum entered by Julia Vo R.N. 06/27/21 11:25: Patient gave permission for this oil field caser to call his sister, Yusra. She resides in [place]. Patient also indicated that he was able to get in touch with his friend, Carlito, who lives in [place]. Patient indicated, his friend will be here tomorrow. This oil field caser would attempt to meet with him if he comes to visit. Contacted Yusra, his sister in [place]. She is 79, can't drive due to neuropathy, to see patient, and she can't fly. She indicated that patient is living off of social security, has a friend named Leilani that works at the [employer]. She indicated that he has made some poor decisions. She did not state that patient is addicted to drugs or alcohol, but would go to the [employer] ( [facility] ) for beer. She also indicated that patient had applied for Senior Housing approximately a year ago. Will place a consult with chaplain Nate. Have a call out to [facility]. O.T. indicated that patient is a two person transfer at this time. Have a call out to [facility] as well. Addendum entered by Julia Vo R.N. 06/27/21 09:37: Left a message with [facility] that [facility] since an expidited application was sent in for terminal computer operator care hospital assessment. Will meet with patient today to discuss his situation further and terminal computer operator planning. Original Note: DCP Cont: Asking assistant general manager, Katherine, to send over referral to [facility] for patient. He is homeless, living in his car, he has a sister that resides in [place]. Will attempt to see patient today to discuss if he has any friends, or places he can stay. This may enable finding a skilled facility if there is a home plan available. P: DCP to continue to follow. Will consult with the therapy team today to see how he does. Julia Vo RN/Hand Cooper Helper
--- NOTE | 2021-06-27 09:04 | CM.DPNOTE ---
Faxed referral packet to [facility] per Melba and received fax conf. Katherine Terry CM Asst.
--- NOTE | 2021-06-27 10:30 | OT.IP.EVAL ---
Current Diagnoses Fracture of unspecified part of neck of left femur, initial encounter for closed fracture (06/24/21) Unspecified intracapsular fracture of left femur, initial encounter for closed fracture (06/24/21) Surgery Performed Operation Date: 06/25/21 16:45 Actual Procedures p left hip partial replacement(Left) - Jemma Mena MD Past Medical History (Last Reviewed 06/26/21 @ 09:49 by Milo Dorsey PA-C) Cellulitis of left leg Congestive heart failure Elevated troponin Essential hypertension Hypertension No pertinent past surgical history Surgical History (Last Reviewed 06/26/21 @ 09:49 by Milo Dorsey PA-C) No pertinent past surgical history Occupational Therapy Inpatient Evaluation/Re-Eval M1 PT/OT-IP Prior Functional Status Start: 06/26/21 17:03 Freq: NEEDED Status: Active Protocol: Document 06/27/21 09:35 [facility] (Rec: 06/27/21 11:19 [facility] [id number]) Medical Review Prior Functional Status Medical History Reviewed Yes Diet/Fluid Consistency Regular Communication Wears glasses, WFL for communication Mobility and Gait Independent, uses cane sometimes Activities of Daily Living and IADL's Independent, limited by his homelessness. Pt does not shower and use of wash cloth at times to wash some. Pt's friend brings him coffee and if he has money will eat at [employer]. Social History Household Members none Living Arrangements Homeless Home Equipment Straight Cane Additional Social History Comment He live in his vehicle, his Sister lives in [place], has supportive friends in the community M2 OT-IP Current Condition Start: 06/27/21 10:58 Freq: Status: Active Protocol: Document 06/27/21 09:35 [facility] (Rec: 06/27/21 11:19 [facility] [id number]) Occupational Therapy Current Condition Current Condition Evaluation Date 06/27/21 Treatment Diagnosis Left femoral neck fracture displaced, decreased mobility Diagnosis Onset Date 06/24/21 Post Operative Precautions Posterior Hip Precautions No Hip Flexion > 90 degrees,No Hip Internal Rotation,No Hip Adduction Weight Bearing Status Weight Bearing Status Weight Bear as Tolerated M3 OT- IP Subjective and Pain Start: 06/27/21 10:58 Freq: Status: Active Protocol: Document 06/27/21 09:35 [facility] (Rec: 06/27/21 11:19 [facility] [id number]) OT- Subjective Occupational Therapy Visit Type Type Initial Evaluation Visit Start Time 09:35 Visit Stop Time 10:30 Total Visit Minutes 33 Notes Pt seen for split treatment due to initially having high BP 142/112 and now BP 144/68 from 935-953 and [id number]. Occupational Therapy Visit Comments Patient Comments Pt agreed to get up with PATTERN ILLUSTRATOR and OT. Patient/Caregiver Goals To get better. OT Pain Assessment Pain When Pain Assessed At Rest Pain Present Pain Present Pain Reported Location Left Hip Intensity 5 Scale Used Numeric (0 - 10) M4 OT- IP ADL's Start: 06/27/21 10:58 Freq: Status: Active Protocol: Document 06/27/21 09:35 [facility] (Rec: 06/27/21 11:19 [facility] [id number]) OT MSJ-Bpig-Xzzehqb General Evaluation Self-Feeding Ability Independent Comments OT Self-Feeding Comments Noted pt drooling when getting pt out of bed and pt states that it is normal for him. OT ADL-Grooming Comments OT Grooming Comments Pt not wanting to perform at this time. OT ADL-Oral Care Comments Oral Care Comments Not performed. OT ADL-Dressing General Eval Lower Body Dressing Ability Maximum Assistance Areas Needing Assistance Socks Comments OT Dressing Comments Pt able to lift his feet up so therapist able to alice his socks. OT ADL-Toileting General Evaluation Toileting Ability Total Assistance Comments OT Toileting Comments Arredondo in place. M5 OT- IP IADL's Start: 06/27/21 10:58 Freq: Status: Active Protocol: Document 06/27/21 09:35 [facility] (Rec: 06/27/21 11:19 [facility] [id number]) OT-Instrumental Activities of Daily Living Home Safety Awareness Home Safety Comments Continue to assess as pt just mainly open to doing transfer to the recliner at this time. M6 OT- IP Functional Cognition Start: 06/27/21 10:58 Freq: Status: Active Protocol: Document 06/27/21 09:35 [facility] (Rec: 06/27/21 11:19 [facility] [id number]) Cognitive Factors Limiting Selfcare Function Cognitive Ability Level of Alertness Alert Patient Orientation Name,Place,Situation Attention Span Ability Capable of Focused Attention, Capable of Sustained Attention Ability to Follow Commands Able to Follow One Step Commands with Increased Time, Able to Follow One Step Commands with Repetition Safety Awareness Decreased Recall of Precautions,Decreased Ability to Apply Precautions, Underestimates Need for Assistance Cognitive Comments Cognitive Assessment Comments Pt needing increased time to process information and move. Pt very vocal of his wants as wanting to have 7-up, but agreed to wait until after getting up to the recliner. Pt not aware or able to state his hip precautions. Pt needing step by step commands to follow. Pt has poor safety awareness and half way from transferring from the bed to recliner reaching out to the recliner versus use of FWW to get in front of the recliner before sitting down. OT- Vision and Hearing OT- Hearing Assessment OT- Hearing Assessment WFL OT- Vision Assessment Visual Acuity Glasses All The Time M7 OT- IP Mobility and Balance Start: 06/27/21 10:58 Freq: Status: Active Protocol: Document 06/27/21 09:35 [facility] (Rec: 06/27/21 11:19 [facility] [id number]) OT- Bed Mobility Assessment Supine to Sit Supine to Sit Assist Maximum Assistance,2 Person Assistance,Head of Bed Elevated,Bedrails OT-Transfer Assessment Sit to and From Stand Sit to and from Stand Moderate Assistance,2 Person Assistance Transfers Transfer Ability Moderate Assistance,2 Person Assistance Technique Transfer Destination Bed,Chair Transfer Technique Stand Step Pivot Devices Transfer Assistive Devices Gait Belt,Front Wheeled Walker Comments Mobility Comments MAX AX 2 to assist to get his trunk upright and legs to the edge of the bed. MODA X2 to stand to FWW and NKECHI X 2 to use FWW to transfer to the recliner. OT- Gait Assessment Comments Gait Ability Comments Transfer only at this time. OT- Balance Assessment Sitting Balance and Reactions Static Sitting Balance Ability Poor+ Standing Balance and Reactions Static Standing Balance Ability Poor Dynamic Standing Balance Ability Poor Comments Other Balance Tests/Deviations/Treatment Pt needing from MOD A to CGA : for sitting balance. Pt tends to lean to the left while seated. M8 OT- IP Objective Assessments Start: 06/27/21 10:58 Freq: Status: Active Protocol: Document 06/27/21 09:35 [facility] (Rec: 06/27/21 11:19 [facility] [id number]) OT Gross Range of Motion Upper Extremity Range of Motion ROM Impairments Not able to assess. OT Strength Comments Strength Comments Pt at least 3-/5 . M9 OT- IP Assessment and Plan Start: 06/27/21 10:58 Freq: Status: Active Protocol: Document 06/27/21 09:35 [facility] (Rec: 06/27/21 11:19 [facility] [id number]) OT Summary Assessment and Plan Potential Rehabilitation Potential Fair Analytic Complexity at Evaluation Moderate Summary OT Impairments Strength,Balance,Functional Cognition,Functional Mobility, Grooming,Dressing,Toileting, Bathing,Toilet Transfers, Activity Tolerance Progress Towards Goals Slow Progress due to Pain,Slow Progress due to Medical Issues,Slow Progress due to Activity Tolerance,Slow Progress due to Cognition Assessment Summary Pt MOD complexity and main barriers are pt is homeless, now needing two person assist for ADl and mobility needs. Pt states has no family or friends to assist him. Pt would benefit from skilled rehab pending plan afterwards. Goals Self-Feeding Goal Independent Grooming Goal Independent Dressing Goal Independent Toileting Goal Independent Bathing Goal Independent Toilet Transfer Goal Independent Days to Meet Goals 20 Frequency of Treatment Frequency Of Treatment Once a Day Treatment Plan OT Treatment Plan ADL Training,Functional Cognition Training,Functional Mobility,Patient/Family Education,Discharge Planning Other Treatment Recommendations and Next Transfer to [facility] with MODA X 1. Treatment Focus Discharge Recommendations OT Discharge Recommendations SNF Rehab Transportation Needs at Discharge Wheelchair/Cabulance
--- NOTE | 2021-06-27 10:34 | PT.IPTN ---
Current Diagnoses Fracture of unspecified part of neck of left femur, initial encounter for closed fracture (06/24/21) Unspecified intracapsular fracture of left femur, initial encounter for closed fracture (06/24/21) Surgery Performed Operation Date: 06/25/21 16:45 Actual Procedures p left hip partial replacement(Left) - Jemma Mena MD Physical Therapy Treatment Note M2 PT-IP Current Condition Start: 06/26/21 17:03 Freq: NEEDED Status: Active Protocol: Document 06/26/21 12:00 DLM (Rec: 06/26/21 17:17 DLM [id number]) Physical Therapy Current Condition Current Condition Evaluation Date 06/26/21 Treatment Diagnosis left TAN, posterior, s/p fall, gait impaired Onset Date 06/24/21 Precautions Posterior Hip Precautions No Hip Flexion > 90 degrees,No Hip Internal Rotation,No Hip Adduction Weight Bearing Status Weight Bearing Status Weight Bear as Tolerated M3 PT-IP Subjective Start: 06/26/21 17:03 Freq: NEEDED Status: Active Protocol: Document 06/27/21 08:43 SP (Rec: 06/27/21 11:30 SP [id number]) Subjective Physical Therapy Visit Type Type Treatment Note Visit Start Time 08:43 Visit Stop Time 08:54 Total Visit Minutes 31 Notes Pt required split treatment ( 7027-2150, 1607-3575) due to elevated diastolic BP at rest assessment. Nursing suggested hold and come back later after meds given. Cotx with OT due to increase assist required. Number of PHOTOGRAPHIC EQUIPMENT INSPECTOR Visits 1 Physical Therapy Visit Comments Patient Comments Pt reported has some friends but not able to stay with them . Patient Goals Wants to get better. Therapy Pain Assessment Pain When Pain Assessed At Rest Pain Present Pain Present Denied Pain M4 PT-IP Mobility and Gait Start: 06/26/21 17:03 Freq: NEEDED Status: Active Protocol: Document 06/27/21 08:43 SP (Rec: 06/27/21 11:30 SP [id number]) PT-Bed Mobility Assessment Supine to Sit Supine to Sit Maximum Assistance,2 Person Assistance,Head of Bed Elevated Scooting Scooting to Edge of Bed Maximum Assistance Scooting Up and Down in Bed Dependent PT-Transfer Assessment Sit to and From Stand Sit to and from Stand Moderate Assistance,2 Person Assistance,Use of Upper Extremities Equipment Transfer Assistive Device Gait Belt,Front Wheeled Walker Orthotic/Prosthetic Devices or Brace: No Transfers Transfer Destination Chair Transfer Technique Stand Step Pivot Transfer Ability Level of Assist Moderate Assistance,2 Person Assistance Comments Mobility Comments Pt elevated supine in bed when arrived, BP elevated at rest 144/108 and 142/112, notified nursing and hasn't been given meds yet nurse recommended to come back and allow meds giving take affect. Improved BP 146/ 85, HR 87 bpm, post mobility 136/84 when arrived later am. Pt very distractible and demanding, required increased assist Max of 2 persons elevated supine>sit and scoot to EOB with support for trunk righting due to retro and at times L lean, cued BUE WB on bed for self support, Mod A for R>LLE repositioning toward EOB. Pt distracted during bed mobility with gown/ hair, demanding with requested of use beverage not available in room during bed mob. PHOTOGRAPHIC EQUIPMENT INSPECTOR/ OT redirection to mobility task and assist requests when more stable positioning, verbalized understanding. Once pt BLE support on floor able to sit w / UE support. Sit<stand Mod A x2 using fWW, cued for hand placment and upright posture able. Pt stand with excessive trunk flexion, SPT Mod A x2 with max cues for pivot fully, Min A for fWW respositioning. Pt unsafe durign pivot, reached back for chair arm before completed pivot requiringn Max A x2 and fell into chair. PHOTOGRAPHIC EQUIPMENT INSPECTOR provided education of full pivot and repositioning of fWW to decrease risk for fall, pt did not acknowledge. PHOTOGRAPHIC EQUIPMENT INSPECTOR reviewed hip precautions pt doesn't not recall, provided hand out to review on side table. Pt was in chair with chair alarm donned and all needs in reach before left. Gait Assessment Comments Gait Comments Only able to complete SPT using fWW with Mod A of 2 persons during bed>chair PT-Balance Assessment Sitting Balance and Reactions Static Sitting Balance Ability Poor Dynamic Sitting Balance Ability Poor Standing Balance and Reactions Static Standing Balance Ability Poor Dynamic Standing Balance Ability Poor Device Used FWW M5 PT-IP Objective Assessments Start: 06/26/21 17:03 Freq: NEEDED Status: Active Protocol: Document 06/26/21 12:00 DLM (Rec: 06/26/21 17:17 DLM [id number]) Orientation Orientation/Cognition Level of Alertness Alert Orientation Name,Birthday,Place,Situation Safety Awareness Decreased Safety Awareness Memory Description Short Term Impaired Comments he is pleasant and cooperative , drooling noted Gross Range of Motion Upper Extremity ROM Assessment Within Functional Limits Lower Extremity ROM Assessment Left Impaired Impairments left limited by TAN precautions and pain Strength Upper Extremity Strength Assessment Within Functional Limits Lower Extremity Strength Assessment Left Impaired Hip needs assist to move LE in bed , standing flexion 2+/5 Knee ext 2+/5 with thigh pain Ankle DF 4/5 Comments Strength Comments left hip limited by post TAN precautions Coordination Assessment Gross Coordination Gross Coordination WNL Sensation Assessment Sensation Gross Sensation WNL Comments Sensation Comments chronic LE edema, no numbness reported by pt Muscle Tone Muscle Tone WNL Yes M6 PT-IP Treatment Start: 06/26/21 17:03 Freq: NEEDED Status: Active Protocol: Document 06/27/21 08:43 SP (Rec: 06/27/21 11:30 SP [id number]) Physical Therapy Treatment Education Education Provided Precautions,Weight Bearing Status,Post-Op Packet,Safety Other Treatments Other Treatment Performed he is very distractible and difficult to keep him focused on activities at hand. M7 PT-IP Assessment and Plan Start: 06/26/21 17:03 Freq: NEEDED Status: Active Protocol: Document 06/27/21 08:43 SP (Rec: 06/27/21 11:30 SP [id number]) PT Summary Assessment and Plan Potential Rehabilitation Potential Good Status of Condition at Evaluation Evolving Summary Impairments Pain,ROM,Strength,Balance, Cognition,Bed Mobility, Transfers,Gait,Activity Tolerance Progress Towards Goals Slow Progress due to Activity Tolerance Assessment Summary Pt distractible, demanding throughout tx. Pt requires Max A x2 for bed mobility, Mod A x2 using fWW during transfers with max cuing for safe sequencing mobility. Pt would benefit from continued skilled therapy and recommending SNF to improve strength and functional mobility. Goals Bed Mobility Goal Minimal Assistance Transfer Goal Minimal Assistance,Moderate Assistance,Front Wheeled Walker Gait Goal Minimal Assistance,Moderate Assistance,Front Wheel Walker Gait Distance 25 feet Days to Meet Goals 7 Frequency of Treatment Frequency Of Treatment Twice a Day Treatment Plan Physical Therapy Treatment Plan Bed Mobility Training,Transfer Training,Gait Training, Therapeutic Exercise,Balance Retraining,Post Op Education, Discharge Planning,Hot or Cold Pack,Neuromuscular Re-ed Other Recommendations and Next Treatment bed mob, LE ex, precautions, Focus transfers, gait using fWW Precautions Other Precautions Pt did not recall precautions, provided education and referred to hand out for recall positioned on his BS table Recommendations To Nursing Amount of Assist Needed 2 Person Assist Discharge Recommendations PT Discharge Recommendations SNF Rehab Transportation Needs at Discharge Wheelchair/Cabulance
--- NOTE | 2021-06-27 10:55 | PM.PN.1 ---
Subjective Subjective Date Patient Seen: 06/27/21 Time Patient Seen: 10:55 Interval history: Patient denies any pain. He has no shortness of breath, nausea, or diarrhea. He is 2 days post/op Unipolar prothesis for left femur fracture due to a slip and fall. Exam Vital Signs (past 8 hours): - 06/27/21 05:00 06/27/21 07:13 06/27/21 09:40 Temperature 98.4 F 98.0 F Pulse Rate 84 89 87 Respiratory Rate 20 16 Blood Pressure 141/89 H 138/90 146/85 H Pulse Oximetry 96 95 06/27/21 09:42 06/27/21 10:26 Temperature Pulse Rate 87 Respiratory Rate Blood Pressure 148/85 H Pulse Oximetry 96 Oxygen Delivery Method Room Air Oxygen Flow Rate 0 Narrative Exam Narrative: Pleasant gentleman sitting up in bed in no acute distress Resp Other: Lungs: clear to auscultation Cardio Other: Irregularly, irregular, nl Sl S2 2/6 GIOVANNI GI Other: soft/ non tender/ non distended Other: francis catheter in place Extrem Other: left hip with drain in place, wound clean and dry Objective Labs Result Diagrams: 06/27/21 04:15 06/25/21 02:55 Labs: Laboratory Results - last 24 hr 06/27/21 04:15 WBC 9.2 RBC 3.98 L Hgb 12.9 L Hct 38.9 L MCV 97.7 MCH 32.4 MCHC 33.2 RDW 14.2 Plt Count 227 Neut % (Auto) 79.3 H Lymph % (Auto) 12.8 L [place] % (Auto) 6.9 Eos % (Auto) 0.6 L Baso % (Auto) 0.4 Neut # (Auto) 7300 H Lymph # (Auto) 1200 [place] # (Auto) 600 Eos # (Auto) 100 Baso # (Auto) 0 PFSH Medical History Cellulitis of left leg Congestive heart failure Elevated troponin Essential hypertension Hypertension Surgical History No pertinent past surgical history Family History Mother Hypertension Sister Hypertension Social History household members: none housing: other occupational status: unemployed Smoking Status: Current every day smoker alcohol intake: current additional social history: Lives in a hotel Assessment & Plan Assessment & Plan narrative: 1. Left hip fracture status post unipolar prosthesis -continue PT OT -anticipate discharge to SNF -d/c francis catheter 2. Hypertension -continue metoprolol 3. Atrial fibrillation -rate controlled -continue metoprolol -continue aspirin Time Spent With Patient Critical Care time: I spent a total of [] minutes of critical care time on this patient's care today; this time is exclusive of procedural time. Quality VTE Deep Vein Thrombosis/Pulmonary Embolism Present on Admission: No
--- NOTE | 2021-06-27 12:47 | CM.DPC ---
Addendum entered by Julia Vo R.N. 06/27/21 16:07: Spoke to auction clerk, Gerson Terrell. He knows patient well. He lives in a small car, a [employer]. He gave this shoe caser the phone number of Daniela Rutherford at [facility] who assists those in searching for housing. Will contact her tomorrow. In the mean time, [facility] will continue to review, have not heard from Guillermina Hernandez, [facility], or Sofía. Addendum entered by Julia Vo R.N. 06/27/21 14:44: Spoke to [facility], and she confirmed that Jenni Anglin is patient's shoe caser, and she is currently working on a plan for patient. She encouraged this shoe caser to email Jenni. Went ahead and sent Jenni an email indicating that care management is attempting to locate a longterm facility, but he will need chcf placement for housing. Original Note: DCP Cont: Called [facility] to inquire upon a shoe caser getting assigned to patient after application was expidite by JACK Bailey. Found out that patient does have a shoe caser assigned by the name of Jenni Anglin. Left Jenni a message on patient regarding his situation, and computer terminal operator care planning. In the message, let her know that this shoe planner would like to pursue a skilled facility for patient, but at this time he is homeless. Also, left a message with Gerson Terrell, local auction clerk, regarding the situation. Can attempt to start looking for longterm facilities. P: DCP to continue to look for longterm facilities. Julia Vo, RADHA/Research Laboratory Technician
--- NOTE | 2021-06-27 12:53 | PM.PNPO.1 ---
Subjective Subjective Date Patient Seen: 06/27/21 Time Patient Seen: 12:53 Interval history: Patient states he is doing well overall and is in mild discomfort at rest. Patient denies fever, chills, nausea, chest pain, shortness of breath. Exam Vital Signs (past 8 hours): - 06/27/21 05:00 06/27/21 07:13 06/27/21 08:30 Temperature 98.4 F 98.0 F Pulse Rate 84 89 Respiratory Rate 20 16 Blood Pressure 141/89 H 138/90 Pulse Oximetry 96 95 96 06/27/21 09:40 06/27/21 09:42 06/27/21 10:26 Temperature Pulse Rate 87 87 Respiratory Rate Blood Pressure 146/85 H 148/85 H Pulse Oximetry 96 06/27/21 11:26 Temperature 97.5 F L Pulse Rate 86 Respiratory Rate 21 Blood Pressure 141/92 H Pulse Oximetry 95 Oxygen Delivery Method Room Air Oxygen Flow Rate 0 Narrative Exam Narrative: 70-year-old male postop day 2 status post left hip cemented unipolar. Patient is resting comfortably in bed, is in no acute distress, and is alert and oriented x3. Skin is warm and dry, and the skin surrounding the incision site is free of erythema, warmth, induration, or discharge. Dressing over the incision site is clean, dry, and intact. Wound drain actively draining scant amount of bright red blood. Good sensation appreciated throughout the bilateral lower extremities light touch. Gross motor function intact throughout the bilateral lower extremities. Calves are soft nontender, negative Homans sign. No other signs of DVT appreciated. Const General: cooperative, healthy appearing and comfortable Resp Effort & Inspection: normal respiratory effort and able to speak in complete sentences Skin General: no rashes or lesions noted Objective Labs Result Diagrams: 06/27/21 04:15 06/25/21 02:55 Labs: Laboratory Results - last 24 hr 06/27/21 04:15 WBC 9.2 RBC 3.98 L Hgb 12.9 L Hct 38.9 L MCV 97.7 MCH 32.4 MCHC 33.2 RDW 14.2 Plt Count 227 Neut % (Auto) 79.3 H Lymph % (Auto) 12.8 L [place] % (Auto) 6.9 Eos % (Auto) 0.6 L Baso % (Auto) 0.4 Neut # (Auto) 7300 H Lymph # (Auto) 1200 [place] # (Auto) 600 Eos # (Auto) 100 Baso # (Auto) 0 PFSH Medical History Cellulitis of left leg Congestive heart failure Elevated troponin Essential hypertension Hypertension Surgical History No pertinent past surgical history Family History Mother Hypertension Sister Hypertension Social History household members: none housing: other occupational status: unemployed Smoking Status: Current every day smoker alcohol intake: current additional social history: Lives in a hotel Assessment & Plan Post-op Postoperative Procedures: Procedures Operation Date: 06/25/21 16:45 Actual Procedure Side Surgeon p left hip partial replacement Left Jemma Mena MD Postoperative day: 2 Postoperative status: doing well Postoperative plan: ambulate Postoperative plan narrative: Patient is to continue working on ambulation with the assistance of a front wheeled walker. Current pain management regimen is to be continued as it has adequately controlled the patient's pain level. Aspirin 81 mg twice daily is to be continued for DVT prophylaxis along with the assistance of sequential compression devices. Patient is currently being followed by Medicine for conditions including but not limited to diastolic heart failure, hypertension, and atrial fibrillation. Patient is likely to be [facility] to [facility] once cleared by Medicine. Quality VTE Deep Vein Thrombosis/Pulmonary Embolism Present on Admission: No
[2021-06-27] MEDS: ONDANSETRON 4 MG ODT PO (13:51)
--- NOTE | 2021-06-27 13:58 | CM.DPNOTE ---
Faxed/Emailed referral packet to [facility], Guillermina Hernandez and [facility] and received fax conf. Katherine Terry.
--- NOTE | 2021-06-27 14:08 | PC.NURSE ---
Post-op: Pt reports he is feeling better. Tolerates diet, however this afternoon he was feeling sl nauseated and didn't eat much of his lunch, perhaps 25%. Given zofran and so far he has not vomited. Hemovac d/c intact, dry sterile dressing applied. Arredondo d/c. Pt was concerned he might have some inc so a brief was placed underneath him. He was up for a couple of hours during lunch time. Currently back in bed and resting.
--- NOTE | 2021-06-27 15:02 | PT.IPTN ---
Current Diagnoses Fracture of unspecified part of neck of left femur, initial encounter for closed fracture (06/24/21) Unspecified intracapsular fracture of left femur, initial encounter for closed fracture (06/24/21) Surgery Performed Operation Date: 06/25/21 16:45 Actual Procedures p left hip partial replacement(Left) - Jemma Mena MD Physical Therapy Treatment Note M2 PT-IP Current Condition Start: 06/26/21 17:03 Freq: NEEDED Status: Active Protocol: Document 06/26/21 12:00 DLM (Rec: 06/26/21 17:17 DLM [id number]) Physical Therapy Current Condition Current Condition Evaluation Date 06/26/21 Treatment Diagnosis left TAN, posterior, s/p fall, gait impaired Onset Date 06/24/21 Precautions Posterior Hip Precautions No Hip Flexion > 90 degrees,No Hip Internal Rotation,No Hip Adduction Weight Bearing Status Weight Bearing Status Weight Bear as Tolerated M3 PT-IP Subjective Start: 06/26/21 17:03 Freq: NEEDED Status: Active Protocol: Document 06/27/21 14:26 SP (Rec: 06/27/21 16:19 SP [id number]) Subjective Physical Therapy Visit Type Type Treatment Note Visit Start Time 14:26 Visit Stop Time 15:02 Total Visit Minutes 36 Notes Elevated BPs initially, MINING CAPTAIN discussed with hospitalist and given ok for pt to mobilize. Vitals supine restin. BP 145/113 HR 102 2. BP 162/103 HR 98 Post mobility seated in chair 147/107 HR 110. Nurse Josiane assist as 2nd person throughout tx. Number of MINING CAPTAIN Visits 2 Physical Therapy Visit Comments Patient Comments Pt willing to work with therapy. Therapy Pain Assessment Pain Present Pain Present Denied Pain M4 PT-IP Mobility and Gait Start: 06/26/21 17:03 Freq: NEEDED Status: Active Protocol: Document 06/27/21 14:26 SP (Rec: 06/27/21 16:19 SP [id number]) PT-Bed Mobility Assessment Supine to Sit Supine to Sit Maximum Assistance,1 Person Assistance,Head of Bed Elevated,Bedrails Scooting Scooting to Edge of Bed Moderate Assistance PT-Transfer Assessment Sit to and From Stand Sit to and from Stand Maximum Assistance,2 Person Assistance,Use of Upper Extremities Equipment Transfer Assistive Device Gait Belt,Front Wheeled Walker Orthotic/Prosthetic Devices or Brace: No Transfers Transfer Destination Chair Transfer Technique Stand Step Pivot Transfer Ability Level of Assist Moderate Assistance,Maximum Assistance,2 Person Assistance ,Use of Upper Extremities Comments Mobility Comments Elevated supine>sit and scoot to EOB Mod A x1 with support for trunk righting and LE repositioning to EOB, intermittent cues for BUE WB on bed, forward trunk and continue scoot until BLE on floor. Able to sit unsupport at EOB, flexed trunk posture states is his baseline. Sit> Stand Max A x2 intermittent cues for quad facilitation pelvis under trunk for taller stance posture, once standing Max A x1 to maintain standing balance while nurse assisted pt with use of urinal, stood almost 1 min with heavy BUE WB on fWW. SPT using FWW bed to chair L: pt continued not complete full pivot, starts to reach to L 1/4 way throught transfer for chair arm before completed pivot requiring Max A x2 and fell into chair. MINING CAPTAIN provided education pivot in and with fWW including backing up fully to front chair until feel back of leg on chair then hands reaching back to sit and repositioning of fWW to decrease risk for fall, I know. MINING CAPTAIN assisted elevation of BLE in recliner with upright posture. Pt had call light and all needs including late lunch in reach, chair alarm donned. Gait Assessment Comments Gait Comments Only able to complete SPT using fWW with Max A of 2 persons during bed>chair. See mobility details. PT-Balance Assessment Sitting Balance and Reactions Static Sitting Balance Ability Good Dynamic Sitting Balance Ability Fair Standing Balance and Reactions Static Standing Balance Ability Poor Dynamic Standing Balance Ability Poor Device Used FWW M5 PT-IP Objective Assessments Start: 06/26/21 17:03 Freq: NEEDED Status: Active Protocol: Document 06/26/21 12:00 [facility] (Rec: 06/26/21 17:17 [facility] [id number]) Orientation Orientation/Cognition Level of Alertness Alert Orientation Name,Birthday,Place,Situation Safety Awareness Decreased Safety Awareness Memory Description Short Term Impaired Comments he is pleasant and cooperative , drooling noted Gross Range of Motion Upper Extremity ROM Assessment Within Functional Limits Lower Extremity ROM Assessment Left Impaired Impairments left limited by TAN precautions and pain Strength Upper Extremity Strength Assessment Within Functional Limits Lower Extremity Strength Assessment Left Impaired Hip needs assist to move LE in bed , standing flexion 2+/5 Knee ext 2+/5 with thigh pain Ankle DF 4/5 Comments Strength Comments left hip limited by post TAN precautions Coordination Assessment Gross Coordination Gross Coordination WNL Sensation Assessment Sensation Gross Sensation WNL Comments Sensation Comments chronic LE edema, no numbness reported by pt Muscle Tone Muscle Tone WNL Yes M6 PT-IP Treatment Start: 06/26/21 17:03 Freq: NEEDED Status: Active Protocol: Document 06/27/21 14:26 SP (Rec: 06/27/21 16:19 SP [id number]) Physical Therapy Treatment Education Education Provided Precautions,Weight Bearing Status,Post-Op Packet,Safety Other Treatments Other Treatment Performed Pt little less distracted this tx, cues for redirection keep him focused on activities at hand. M7 PT-IP Assessment and Plan Start: 06/26/21 17:03 Freq: NEEDED Status: Active Protocol: Document 06/27/21 14:26 SP (Rec: 06/27/21 16:19 SP [id number]) PT Summary Assessment and Plan Potential Rehabilitation Potential Good Status of Condition at Evaluation Evolving Summary Impairments Pain,ROM,Strength,Balance, Cognition,Bed Mobility, Transfers,Gait,Activity Tolerance Progress Towards Goals Progressing Toward Goals,Slow Progress due to Activity Tolerance Assessment Summary Pt distractible, requires Max A x1 for elevated bed mobility , Max A x2 using fWW during transfers with max cuing for safe sequencing mobility. Pt would benefit from continued skilled therapy and recommending SNF to improve strength and functional mobility. Goals Bed Mobility Goal Minimal Assistance Transfer Goal Minimal Assistance,Moderate Assistance,Front Wheeled Walker Gait Goal Minimal Assistance,Moderate Assistance,Front Wheel Walker Gait Distance 25 feet Days to Meet Goals 7 Frequency of Treatment Frequency Of Treatment Twice a Day Treatment Plan Physical Therapy Treatment Plan Bed Mobility Training,Transfer Training,Gait Training, Therapeutic Exercise,Balance Retraining,Post Op Education, Discharge Planning,Hot or Cold Pack,Neuromuscular Re-ed Other Recommendations and Next Treatment bed mob, LE ex, precautions, Focus transfers, gait using fWW if able tolerate. Precautions Other Precautions Pt did not recall precautions, education provided. Recommendations To Nursing Amount of Assist Needed 2 Person Assist Discharge Recommendations PT Discharge Recommendations SNF Rehab Equipment Needed for Home Before FWW prior to DC if unsafe with Discharge SPC Transportation Needs at Discharge Wheelchair/Cabulance
[2021-06-27] MEDS: AMLODIPINE 5 MG TABLET PO (15:48)
[2021-06-28] VITALS (20 sets, daily range): BP systolic 141–168; BP diastolic 11–114; PULSE 82–99; RESP 16–18; TEMP 36.3–37.2; O2SAT 93–97
[2021-06-28] MEDS: IBUPROFEN 400 MG TABLET PO ×3 (00:49→09:18)
--- NOTE | 2021-06-28 07:35 | P.PN_ITS ---
Subjective Subjective Date Patient Seen: 06/28/21 Time Patient Seen: 07:36 Interval history: Pain is mild. Denies fever chills. No nausea or vomiting. Exam Vital Signs (past 8 hours): - 06/28/21 00:23 06/28/21 02:00 06/28/21 05:48 Temperature 97.5 F L 99.0 F Pulse Rate 98 H 99 H Respiratory Rate 16 16 Blood Pressure 141/97 H 168/88 H Pulse Oximetry 97 96 96 06/28/21 06:00 06/28/21 07:21 Temperature Pulse Rate Respiratory Rate Blood Pressure Pulse Oximetry 96 94 Oxygen Delivery Method Room Air Oxygen Flow Rate 0 Narrative Exam Narrative: 70-year-old male resting comfortably in bed in no apparent distress. Dressing is Clean, dry, intact.. Motor functions intact distally. Objective Labs Result Diagrams: 06/27/21 04:15 06/25/21 02:55 PFS Medical History Cellulitis of left leg Congestive heart failure Elevated troponin Essential hypertension Hypertension Surgical History No pertinent past surgical history Family History Mother Hypertension Sister Hypertension Social History household members: none housing: other occupational status: unemployed Smoking Status: Current every day smoker alcohol intake: current additional social history: Lives in a hotel Assessment & Plan Post-op Postoperative Procedures: Procedures Operation Date: 06/25/21 16:45 Actual Procedure Side Surgeon p left hip partial replacement Left Jemma Mena MD Postoperative plan narrative: Mobilize with physical therapy. Patient is 2 person assist per physical therapy and they are recommending intermediate facility placement. Discharge when medically stable per hospitalist. Quality VTE Deep Vein Thrombosis/Pulmonary Embolism Present on Admission: No
--- NOTE | 2021-06-28 07:46 | CM.DPC ---
Addendum entered by Julia Vo R.N. 06/28/21 12:54: Updated patient that this digital media planner is continue to look for skilled rehabs facilities, now in the [facility], and he stated, he appreciates it. Asked him if he had made contact with his friend in the [facility], and he indicated, he had not. Addendum entered by Julia oV R.N. 06/28/21 12:22: [facility]elis Bony in [facility] and stated, she would be willing to look at patient. She indicated that they now have more nursing staff available. Faxed her the referral to her fax at: [phone]. She will review, updated her on patient situation. [facility] facility called back and indicated that they can't accept patient based on their availability, and poor discharge plan for patient. Addendum entered by Julia Vo R.N. 06/28/21 12:01: Called [facility]. [place]: Not accepting patients [facility] in [place]: Can't accept due to homeless situation [facility]: Left a message with Aracelis Lovett in admissions [facility]: Left a message with Sondra in admissions [facility]. Talked to Zamzam in admissions, and she is willing to take a look at patient. Faxed referral to her at: [phone]. Soheila: Left a message. At this point, [facility] is reviewing. Addendum entered by Julia Vo R.N. 06/28/21 11:37: Sent Jenni Anglin another email. Her email is: [email or web address]. Sent is as a secure email. Addendum entered by Julia Vo R.N. 06/28/21 10:44: Spoke to [facility], both [facility], have all declined secondary to poor discharge plan. Called [facility], they are on divert. [facility] are currently full. Have not yet heard back from Jenni Anglin. Did call and leave a message with Daniela Rutherford at [facility], regarding housing for patient. Her phone number is: [phone] ext [phone]. Left Jenni Anglin another message. Her phone number is: [phone]. In the message, let her know that this patient has been independent prior to falls, he just needs housing, a solid plan for any rehabs to accept patient. This digital media planner will need to continue looking for facilities out of the area, such as [place]. Addendum entered by Julia Vo R.N. 06/28/21 09:19: Asking Katherine, medicare coordinator, to fax referral over to [facility], and [facility]. Original Note: DCP Cont: Jenni Baron from [facility] left a message stating that patient needs to fill out a financial application, and needs an assessment. Called Jenni this morning and let her know that Medicaid application has been completed, and need more information from her on what she needs. In the message let her know that discharge planning needs assistance placing this patient into a rehab. Asked her to call this digital media planner back. She indicated that she received this catalytic case operator's email, and she returned email, but did not receive. Jesica at [facility] indicated that they can't accept patient at this time. P: DCP to continue to look for placement for patient. Julia Vo RN/Chemical Production Machine Operator
[2021-06-28] MEDS: SENNOSIDES 8.6 MG TABLET 17.2 MG PO ×2 (09:15→20:55)
[2021-06-28] MEDS: AMLODIPINE 5 MG TABLET PO (09:16)
[2021-06-28] MEDS: ACETAMINOPHEN 325 MG TABLET 650 MG PO (09:16)
[2021-06-28] MEDS: MULTIVITAMIN 1 TABLET 1 TAB PO (09:16)
[2021-06-28] MEDS: polyethylene glycoL 3350 17 GM POWD.PACK PO (09:16)
[2021-06-28] MEDS: ASPIRIN EC 81 MG TABLET PO ×2 (09:17→20:56)
[2021-06-28] MEDS: DOCUSATE 100 MG CAPSULE PO ×2 (09:17→20:55)
[2021-06-28] MEDS: FOLIC ACID 1 MG TABLET PO (09:17)
[2021-06-28] MEDS: METOPROLOL ER 50 MG TABLET PO ×2 (09:18→20:55)
--- NOTE | 2021-06-28 09:19 | CM.DPNOTE ---
[facility] [place] per Melba. Katherine Terry CM Asst.
[2021-06-28] MEDS: SODIUM CHLORIDE 0.9% FLUSH 10 ML IV ×2 (09:20→20:56)
[2021-06-28] MEDS: BISACODYL 10 MG SUPP PR ×2 (09:21→09:26)
[2021-06-28] MEDS: THIAMINE 100 MG TABLET PO (09:26)
--- NOTE | 2021-06-28 10:52 | PT.IPTN ---
Current Diagnoses Fracture of unspecified part of neck of left femur, initial encounter for closed fracture (06/24/21) Unspecified intracapsular fracture of left femur, initial encounter for closed fracture (06/24/21) Surgery Performed Operation Date: 06/25/21 16:45 Actual Procedures p left hip partial replacement(Left) - Jemma Mena MD Physical Therapy Treatment Note M2 PT-IP Current Condition Start: 06/26/21 17:03 Freq: NEEDED Status: Active Protocol: Document 06/26/21 12:00 DLM (Rec: 06/26/21 17:17 DLM [id number]) Physical Therapy Current Condition Current Condition Evaluation Date 06/26/21 Treatment Diagnosis left TAN, posterior, s/p fall, gait impaired Onset Date 06/24/21 Precautions Posterior Hip Precautions No Hip Flexion > 90 degrees,No Hip Internal Rotation,No Hip Adduction Weight Bearing Status Weight Bearing Status Weight Bear as Tolerated M3 PT-IP Subjective Start: 06/26/21 17:03 Freq: NEEDED Status: Active Protocol: Document 06/28/21 10:23 CLB (Rec: 06/28/21 12:37 CLB [id number]) Subjective Physical Therapy Visit Type Type Treatment Note Visit Start Time 10:23 Visit Stop Time 10:52 Total Visit Minutes 29 Notes Co-treat with OT for safety Number of COMBINE OPERATOR Visits 3 Physical Therapy Visit Comments Patient Comments Pt willing to work with therapy. Therapy Pain Assessment Pain When Pain Assessed At Rest Pain Present Pain Present Denied Pain M4 PT-IP Mobility and Gait Start: 06/26/21 17:03 Freq: NEEDED Status: Active Protocol: Document 06/28/21 10:23 CLB (Rec: 06/28/21 12:37 CLB [id number]) PT-Bed Mobility Assessment Supine to Sit Supine to Sit Moderate Assistance,1 Person Assistance,Head of Bed Elevated,Bedrails Scooting Scooting to Edge of Bed Maximum Assistance PT-Transfer Assessment Sit to and From Stand Sit to and from Stand Minimal Assistance,2 Person Assistance,Use of Upper Extremities Equipment Transfer Assistive Device Gait Belt,Front Wheeled Walker Orthotic/Prosthetic Devices or Brace: No Transfers Transfer Destination Chair Transfer Technique Stand Step Pivot Transfer Ability Level of Assist Moderate Assistance,2 Person Assistance,Use of Upper Extremities Comments Mobility Comments Pt BP in supine 146/87. Pt required Mod A sup-sit and Max A to scoot to EOB. Pt required SBA and max cues while sitting on EOB as pt leans to left and had difficulty remaining in upright position while washing his face and gown change. Pt stood Min A x2 and transferred to chair requiring Mod A x2 for safety and max cues for walker use and chair approach. Pt left in chair with all needs within reach and chair alarm on. Gait Assessment Comments Gait Comments Pt unwilling to ambulate after transfer to chair. PT-Balance Assessment Sitting Balance and Reactions Static Sitting Balance Ability Good Dynamic Sitting Balance Ability Fair Standing Balance and Reactions Static Standing Balance Ability Poor Dynamic Standing Balance Ability Poor Device Used FWW M5 PT-IP Objective Assessments Start: 06/26/21 17:03 Freq: NEEDED Status: Active Protocol: Document 06/26/21 12:00 DLM (Rec: 06/26/21 17:17 DLM [id number]) Orientation Orientation/Cognition Level of Alertness Alert Orientation Name,Birthday,Place,Situation Safety Awareness Decreased Safety Awareness Memory Description Short Term Impaired Comments he is pleasant and cooperative , drooling noted Gross Range of Motion Upper Extremity ROM Assessment Within Functional Limits Lower Extremity ROM Assessment Left Impaired Impairments left limited by TAN precautions and pain Strength Upper Extremity Strength Assessment Within Functional Limits Lower Extremity Strength Assessment Left Impaired Hip needs assist to move LE in bed , standing flexion 2+/5 Knee ext 2+/5 with thigh pain Ankle DF 4/5 Comments Strength Comments left hip limited by post TAN precautions Coordination Assessment Gross Coordination Gross Coordination WNL Sensation Assessment Sensation Gross Sensation WNL Comments Sensation Comments chronic LE edema, no numbness reported by pt Muscle Tone Muscle Tone WNL Yes M6 PT-IP Treatment Start: 06/26/21 17:03 Freq: NEEDED Status: Active Protocol: Document 06/28/21 10:23 CLB (Rec: 06/28/21 12:37 CLB [id number]) Physical Therapy Treatment Exercises Exercises Heel Slides Education Education Provided Precautions,Weight Bearing Status,Post-Op Packet,Safety M7 PT-IP Assessment and Plan Start: 06/26/21 17:03 Freq: NEEDED Status: Active Protocol: Document 06/28/21 10:23 CLB (Rec: 06/28/21 12:37 CLB [id number]) PT Summary Assessment and Plan Potential Rehabilitation Potential Good Status of Condition at Evaluation Evolving Summary Impairments Pain,ROM,Strength,Balance, Cognition,Bed Mobility, Transfers,Gait,Activity Tolerance Progress Towards Goals Progressing Toward Goals,Slow Progress due to Activity Tolerance Assessment Summary Pt pleasant and able to follow directions but was unwilling to ambulate after transfer. Pt with lateral lean to left in sitting requiring cues for upright posture. Pt improved with transfer ability. Pt would benefit from SNF to improve strength and functional and independent mobility. Goals Bed Mobility Goal Minimal Assistance Transfer Goal Minimal Assistance,Moderate Assistance,Front Wheeled Walker Gait Goal Minimal Assistance,Moderate Assistance,Front Wheel Walker Gait Distance 25 feet Days to Meet Goals 7 Frequency of Treatment Frequency Of Treatment Twice a Day Treatment Plan Physical Therapy Treatment Plan Bed Mobility Training,Transfer Training,Gait Training, Therapeutic Exercise,Balance Retraining,Post Op Education, Discharge Planning,Hot or Cold Pack,Neuromuscular Re-ed Other Recommendations and Next Treatment bed mob, LE ex, precautions, Focus transfers, gait using fWW if able tolerate. Precautions Other Precautions Pt able to recall 1/3 precautions. Recommendations To Nursing Amount of Assist Needed 2 Person Assist Discharge Recommendations PT Discharge Recommendations SNF Rehab Equipment Needed for Home Before FWW prior to DC if unsafe with Discharge SPC Transportation Needs at Discharge Wheelchair/Cabulance
--- NOTE | 2021-06-28 10:52 | OT.IP.TRT ---
Current Diagnoses Fracture of unspecified part of neck of left femur, initial encounter for closed fracture (06/24/21) Unspecified intracapsular fracture of left femur, initial encounter for closed fracture (06/24/21) Surgery Performed Operation Date: 06/25/21 16:45 Actual Procedures p left hip partial replacement(Left) - Jemma Mena MD Occupational Therapy Treatment Note M2 OT-IP Current Condition Start: 06/27/21 10:58 Freq: Status: Active Protocol: Document 06/27/21 09:35 [facility] (Rec: 06/27/21 11:19 [facility] [id number]) Occupational Therapy Current Condition Current Condition Evaluation Date 06/27/21 Treatment Diagnosis Left femoral neck fracture displaced, decreased mobility Diagnosis Onset Date 06/24/21 Post Operative Precautions Posterior Hip Precautions No Hip Flexion > 90 degrees,No Hip Internal Rotation,No Hip Adduction Weight Bearing Status Weight Bearing Status Weight Bear as Tolerated M3 OT- IP Subjective and Pain Start: 06/27/21 10:58 Freq: Status: Active Protocol: Document 06/28/21 12:23 [facility] (Rec: 06/28/21 12:35 [facility] [id number]) OT- Subjective Occupational Therapy Visit Type Type Treatment Note Visit Start Time 10:23 Visit Stop Time 10:52 Total Visit Minutes 29 Occupational Therapy Visit Comments Patient Comments Pt agreed to try to get up. HELP DESK SUPERVISOR also present at pt needing extensive assist for mobility needs and for safety. Patient/Caregiver Goals To get better. OT Pain Assessment Pain When Pain Assessed At Rest Pain Present Pain Present Denied Pain M4 OT- IP ADL's Start: 06/27/21 10:58 Freq: Status: Active Protocol: Document 06/28/21 12:23 [facility] (Rec: 06/28/21 12:35 [facility] [id number]) OT ADL-Grooming General Evaluation Grooming Ability Standby Assistance Comments OT Grooming Comments Pt able to wash his face after set-up. OT ADL-Oral Care Comments Oral Care Comments Pt not wanting to perform. OT ADL-Dressing General Eval Lower Body Dressing Ability Maximum Assistance Areas Needing Assistance Socks OT ADL-Toileting Comments OT Toileting Comments Pt use of urinal now. OT ADL-Bathing Bathing Type Bathing Type Sponge Bath General Evaluation Bathing Ability Moderate Assistance Comments OT Bathing Comments Pt able to assist to wash his face, body, and underarms while seated. M5 OT- IP IADL's Start: 06/27/21 10:58 Freq: Status: Active Protocol: Document 06/27/21 09:35 [facility] (Rec: 06/27/21 11:19 [facility] [id number]) OT-Instrumental Activities of Daily Living Home Safety Awareness Home Safety Comments Continue to assess as pt just mainly open to doing transfer to the recliner at this time. M6 OT- IP Functional Cognition Start: 06/27/21 10:58 Freq: Status: Active Protocol: Document 06/28/21 12:23 [facility] (Rec: 06/28/21 12:35 [facility] [id number]) Cognitive Factors Limiting Selfcare Function Cognitive Ability Level of Alertness Alert Patient Orientation Name,Place,Situation Attention Span Ability Capable of Focused Attention, Capable of Sustained Attention Ability to Follow Commands Able to Follow One Step Commands Safety Awareness Decreased Ability to Apply Precautions,Underestimates Need for Assistance Cognitive Comments Cognitive Assessment Comments Pt able to recall his hip precautions but needing reminders to incorporate during ADl and mobility needs . Pt tends to be insistent of his care and needs MAX vc for FWW use and safety. M7 OT- IP Mobility and Balance Start: 06/27/21 10:58 Freq: Status: Active Protocol: Document 06/28/21 12:23 [facility] (Rec: 06/28/21 12:35 [facility] [id number]) OT- Bed Mobility Assessment Supine to Sit Supine to Sit Assist Moderate Assistance,1 Person Assistance,Head of Bed Elevated,Bedrails OT-Transfer Assessment Sit to and From Stand Sit to and from Stand Minimal Assistance,2 Person Assistance Transfers Transfer Ability Moderate Assistance,2 Person Assistance Technique Transfer Destination Bed,Chair Transfer Technique Stand Step Pivot Devices Transfer Assistive Devices Gait Belt,Front Wheeled Walker Comments Mobility Comments Today pt improving to just one person to get to the edge of the bed. Sit to stand MARVA x2 to FWW mainly for safety and able to transfer MODA X 2 to the recliner form bed, pt tends to want to grab the recliner versus turn all the way around with FWW before sitting down. Pt not wanting to do more after the transfer. OT- Gait Assessment Comments Gait Ability Comments Transfer only at this time. OT- Balance Assessment Sitting Balance and Reactions Static Sitting Balance Ability Poor Dynamic Sitting Balance Ability Poor Standing Balance and Reactions Static Standing Balance Ability Poor Dynamic Standing Balance Ability Poor Comments Other Balance Tests/Deviations/Treatment Pt today needing more assist : to sitting balance and leans to the left. Pt has a very flexed posture at his neck and trunk. M8 OT- IP Objective Assessments Start: 06/27/21 10:58 Freq: Status: Active Protocol: Document 06/27/21 09:35 [facility] (Rec: 06/27/21 11:19 [facility] [id number]) OT Gross Range of Motion Upper Extremity Range of Motion ROM Impairments Not able to assess. OT Strength Comments Strength Comments Pt at least 3-/5 . M9 OT- IP Assessment and Plan Start: 06/27/21 10:58 Freq: Status: Active Protocol: Document 06/28/21 12:23 [facility] (Rec: 06/28/21 12:35 [facility] [id number]) OT Summary Assessment and Plan Potential Rehabilitation Potential Fair Analytic Complexity at Evaluation Moderate Summary OT Impairments Strength,Balance,Functional Cognition,Functional Mobility, Grooming,Dressing,Toileting, Bathing,Toilet Transfers, Activity Tolerance Progress Towards Goals Slow Progress due to Medical Issues,Slow Progress due to Activity Tolerance,Slow Progress due to Cognition Assessment Summary Pt making improvements with mobility needs however still needing two person assist for transfers due to safety and balance. Pt still would benefit from skilled rehab pending plan afterwards. Goals Self-Feeding Goal Independent Grooming Goal Independent Dressing Goal Independent Toileting Goal Independent Bathing Goal Independent Toilet Transfer Goal Independent Days to Meet Goals 20 Frequency of Treatment Frequency Of Treatment Once a Day Treatment Plan OT Treatment Plan ADL Training,Functional Cognition Training,Functional Mobility,Patient/Family Education,Discharge Planning Other Treatment Recommendations and Next [place] [facility] [place]. Treatment Focus Discharge Recommendations OT Discharge Recommendations SNF Rehab Transportation Needs at Discharge Wheelchair/Cabulance
--- NOTE | 2021-06-28 14:24 | CM.DPC ---
Addendum entered by Julia Vo R.N. 06/28/21 14:54: Left a message with [facility] regarding expidited application which was submitted by JACK Bailey. Faxed nursing notes over to [facility]. Original Note: DCP Cont: Found out from Jenni Anglin that patient did not apply for Medicaid. He had withdrawn his application, so she can't assist patient in skilled nursing care. She can only assist if he completes another application, and then, can set up an assessment which takes time. At this time, she will not be able to assist patient unless he fills out application. Aracelis Bony from [place] left a message and asked if patient had any Medicaid information. Did leave a message with Aracelis that he does not have Medicaid at this time. In the message, Aracelis is also asking for nursing notes. Will fax over nursing notes, and will indicate on fax cover sheet that he is not currently under Medicaid. P: DCP to continue to look for skilled rehab for patient, and will fax over nursing notes. Julia Vo RN/Stallion Keeper
--- NOTE | 2021-06-28 15:23 | PM.PN.1 ---
Subjective Subjective Date Patient Seen: 06/28/21 Interval history: 70 y/o male s/p unipolar cemented prosthesis for a left hip fracture. Patient has no specific complaints. He denies pain, shortness of breath, or diarrhea Exam Vital Signs (past 8 hours): - 06/28/21 09:18 06/28/21 10:00 06/28/21 10:21 Temperature Pulse Rate 91 H Respiratory Rate Blood Pressure 158/11 H Pulse Oximetry 96 94 06/28/21 11:00 06/28/21 11:10 06/28/21 13:47 Temperature 97.7 F Pulse Rate 82 Respiratory Rate 16 Blood Pressure 143/100 H Pulse Oximetry 97 94 06/28/21 14:00 Temperature Pulse Rate Respiratory Rate Blood Pressure Pulse Oximetry 94 Oxygen Delivery Method Room Air Oxygen Flow Rate 0 Narrative Exam Narrative: pleasant male lying in bed Resp Other: Lungs: clear to auscultation Cardio Other: Irregularly irregular, Nl Sl S2 GI Other: Abd: soft/ non tender Extrem Other: left hip dressing dry Objective Labs Result Diagrams: 06/27/21 04:15 06/25/21 02:55 PFSH Medical History Cellulitis of left leg Congestive heart failure Elevated troponin Essential hypertension Hypertension Surgical History No pertinent past surgical history Family History Mother Hypertension Sister Hypertension Social History household members: none housing: other occupational status: unemployed Smoking Status: Current every day smoker alcohol intake: current additional social history: Lives in a hotel Assessment & Plan Assessment & Plan narrative: 1. Left hip fracture status post unipolar prosthesis Continue PT OT Awaiting transfer to retirement 2. Hypertension -continue metoprolol and amlodipine for now -will continue to monitor his blood pressure, meds adjusted yesterday 3. Atrial fibrillation -rate control -although the patient is at risk for stroke, given his chads Vasc score, he is a poor candidate for Coumadin anticoagulation, unlikely able to get Xarelto, he has been noncompliant with all medications previouslyAw -continue aspirin Patient is awaiting placement Time Spent With Patient Critical Care time: I spent a total of [] minutes of critical care time on this patient's care today; this time is exclusive of procedural time. Quality VTE Deep Vein Thrombosis/Pulmonary Embolism Present on Admission: No
--- NOTE | 2021-06-28 15:38 | PT.IPTN ---
Current Diagnoses Fracture of unspecified part of neck of left femur, initial encounter for closed fracture (06/24/21) Unspecified intracapsular fracture of left femur, initial encounter for closed fracture (06/24/21) Surgery Performed Operation Date: 06/25/21 16:45 Actual Procedures p left hip partial replacement(Left) - Jemma Mena MD Physical Therapy Treatment Note M2 PT-IP Current Condition Start: 06/26/21 17:03 Freq: NEEDED Status: Active Protocol: Document 06/26/21 12:00 [facility] (Rec: 06/26/21 17:17 [facility] [id number]) Physical Therapy Current Condition Current Condition Evaluation Date 06/26/21 Treatment Diagnosis left TAN, posterior, s/p fall, gait impaired Onset Date 06/24/21 Precautions Posterior Hip Precautions No Hip Flexion > 90 degrees,No Hip Internal Rotation,No Hip Adduction Weight Bearing Status Weight Bearing Status Weight Bear as Tolerated M3 PT-IP Subjective Start: 06/26/21 17:03 Freq: NEEDED Status: Active Protocol: Document 06/28/21 15:18 [facility] (Rec: 06/28/21 17:11 [facility] [id number]) Subjective Physical Therapy Visit Type Type Treatment Note Visit Start Time 15:18 Visit Stop Time 15:38 Total Visit Minutes 20 Number of DISTRICT ADMINISTRATIVE ASSISTANT Visits 4 Physical Therapy Visit Comments Patient Comments Pt needing to use toilet. Therapy Pain Assessment Pain When Pain Assessed At Rest Pain Present Pain Present Denied Pain M4 PT-IP Mobility and Gait Start: 06/26/21 17:03 Freq: NEEDED Status: Active Protocol: Document 06/28/21 15:18 [facility] (Rec: 06/28/21 17:11 [facility] [id number]) PT-Transfer Assessment Sit to and From Stand Sit to and from Stand Minimal Assistance,1 Person Assistance,Use of Upper Extremities Equipment Transfer Assistive Device Gait Belt,Front Wheeled Walker Orthotic/Prosthetic Devices or Brace: No Transfers Transfer Destination Chair,Toilet Transfer Technique Stand Step Pivot Transfer Ability Level of Assist Minimal Assistance,1 Person Assistance,Use of Upper Extremities Comments Mobility Comments Pt stood from chair with cues to put LLE out before standing . Pt stood Min A and ambulated into BR requiring cues for approach and to keep walker close until safely positioned in front of toilet but pt pushed walker away from him and grabbed wall rail. Pt required Min A to get to seated position and required assist with brief. Pt then stood from toilet requiring cues to prevent forward flexion and need for use of wall rail to stand. Pt stood with assist to pull up clean brief then required Min a to ambulate back to chair with cues for safety with walker staying close during chair approach. Pt left in chair with all needs within reach, alarm on and informed RN of pt difficulty following proper use with FWW and posterior hip precautions. Gait Assessment Gait Gait Assistance Required: Minimum Assistance,1 Person Assist Distance (Feet) 15 Able to Maintain Weight Bearing Status Yes During Gait Assistive Devices Assistive Device Gait Belt,Front Wheeled Walker Orthotic/Prosthetic Devices or Brace: No Gait Deviations General Gait Pattern Antalgic,Decreased Stride Length,Decreased Feet Clearance,Step-to Gait,Wide Based Gait Factors Limiting Gait Function Factors Limiting Gait Function Decreased Activity Tolerance, Decreased Strength,Difficulty Following Directions, Incoordination,Limited Range of Motion,Pain,Poor Balance, Poor Safety Awareness PT-Balance Assessment Sitting Balance and Reactions Static Sitting Balance Ability Good Dynamic Sitting Balance Ability Fair Standing Balance and Reactions Static Standing Balance Ability Poor Dynamic Standing Balance Ability Poor Device Used FWW M5 PT-IP Objective Assessments Start: 06/26/21 17:03 Freq: NEEDED Status: Active Protocol: Document 06/26/21 12:00 [facility] (Rec: 06/26/21 17:17 [facility] [id number]) Orientation Orientation/Cognition Level of Alertness Alert Orientation Name,Birthday,Place,Situation Safety Awareness Decreased Safety Awareness Memory Description Short Term Impaired Comments he is pleasant and cooperative , drooling noted Gross Range of Motion Upper Extremity ROM Assessment Within Functional Limits Lower Extremity ROM Assessment Left Impaired Impairments left limited by TAN precautions and pain Strength Upper Extremity Strength Assessment Within Functional Limits Lower Extremity Strength Assessment Left Impaired Hip needs assist to move LE in bed , standing flexion 2+/5 Knee ext 2+/5 with thigh pain Ankle DF 4/5 Comments Strength Comments left hip limited by post TAN precautions Coordination Assessment Gross Coordination Gross Coordination WNL Sensation Assessment Sensation Gross Sensation WNL Comments Sensation Comments chronic LE edema, no numbness reported by pt Muscle Tone Muscle Tone WNL Yes M6 PT-IP Treatment Start: 06/26/21 17:03 Freq: NEEDED Status: Active Protocol: Document 06/28/21 15:18 [facility] (Rec: 06/28/21 17:11 [facility] [id number]) Physical Therapy Treatment Exercises Exercises Quad Sets Education Education Provided Precautions,Safety M7 PT-IP Assessment and Plan Start: 06/26/21 17:03 Freq: NEEDED Status: Active Protocol: Document 06/28/21 15:18 [facility] (Rec: 06/28/21 17:11 [facility] [id number]) PT Summary Assessment and Plan Potential Rehabilitation Potential Good Status of Condition at Evaluation Evolving Summary Impairments Pain,ROM,Strength,Balance, Cognition,Bed Mobility, Transfers,Gait,Activity Tolerance Progress Towards Goals Progressing Toward Goals Assessment Summary Pt has diffuculty following posterior hip precautions and can recall 1/3 precautions. Pt requires max verbal cues for safety for walker management. Pt improving with mobility able to ambualte into BR and back to chair Min A. Pt will benefit from SNF rehab to improve functional and independent mobility. Goals Bed Mobility Goal Minimal Assistance Transfer Goal Minimal Assistance,Moderate Assistance,Front Wheeled Walker Gait Goal Minimal Assistance,Moderate Assistance,Front Wheel Walker Gait Distance 25 feet Days to Meet Goals 7 Frequency of Treatment Frequency Of Treatment Twice a Day Treatment Plan Physical Therapy Treatment Plan Bed Mobility Training,Transfer Training,Gait Training, Therapeutic Exercise,Balance Retraining,Post Op Education, Discharge Planning,Hot or Cold Pack,Neuromuscular Re-ed Other Recommendations and Next Treatment bed mob, LE ex, precautions, Focus transfers, gait Precautions Other Precautions Pt able to recall 1/3 precautions. Recommendations To Nursing Amount of Assist Needed 2 Person Assist Discharge Recommendations PT Discharge Recommendations SNF Rehab Equipment Needed for Home Before FWW prior to DC if unsafe with Discharge SPC Transportation Needs at Discharge Wheelchair/Cabulance
--- NOTE | 2021-06-28 18:30 | PC.NURSE ---
Addendum entered by Arleen Haq R.N. 06/28/21 23:39: Pt requires much queing and reminder to observe hip precautions. Addendum entered by Arleen Haq R.N. 06/28/21 23:34: Straight cathed for 475 cc's clear, yellow urine. Pt reports immediate relief and blood pressure now down from 195/132 to 157/98 following relief from bladder fullness. Continues to deny pain to left hip and refuses ice to site. Addendum entered by Arleen Haq R.N. 06/28/21 22:55: Pt is hypertensive and voiding often small amounts. States feels bladder fullness unrelieved by voiding. Bladder scanned at this hour for 513 cc/s. Pt agreeable to straight catheterization. Addendum entered by Arleen Haq R.N. 06/28/21 19:45: Pt's calls out into hallway for assistance. This lyric writer entered room and pt attempting to void while sitting up in recliner. Only small amount. Encouraged pt to stand up to attempt to void. Walker provided and pt stops attempt to void and takes two steps and climbs into bed on all fours. This lyric writer attempted to correct pt with transfer instructions, but pt does not heed. Assist by HISTORIC SITES REGISTRAR and this lyric writer and pt positioned safely into bed on back observing left posterior hip precautions. Aquacel dressing to left posterior hip is dry and intact. Pt prefers to be gown-less. Tele reattached. BL calf scd's replaced. Bladder scanned for 28 cc's. Pt continent and incontinent of urine. Brief changed. Bed alarm set and pt allowed to sleep as states is tired. Original Note: Ambulatory into bathroom with chief physical therapist @ beginning of shift. Pt passing flatus, but refuses suppository to aid in bowel function. Returned to recliner and chair alarm in place. Pt denies pain and refuses scheduled ibuprofen. Erythema and edema to distal BL LE's. Palpable pedal pulses BL. Aquacel dressing left posterior hip not visible with pt up in recliner. Large allevyn gentle border dressing to right anterior LE. Encouraged to call for needs/requests.
[2021-06-28] MEDS: MAGNESIUM HYDROXIDE 30 ML UDC PO (22:40)
[2021-06-29] VITALS (13 sets, daily range): BP systolic 129–164; BP diastolic 66–99; PULSE 89–101; RESP 17–18; TEMP 36.4–36.9; O2SAT 93–99
[2021-06-29] MEDS: OXYCODONE IR 5 MG TABLET PO (02:46)
[2021-06-29] MEDS: IBUPROFEN 400 MG TABLET PO ×5 (04:31→21:15)
[2021-06-29] MEDS: ACETAMINOPHEN 325 MG TABLET 650 MG PO ×3 (08:31→21:16)
[2021-06-29] MEDS: MULTIVITAMIN 1 TABLET 1 TAB PO (08:32)
[2021-06-29] MEDS: FOLIC ACID 1 MG TABLET PO (08:32)
[2021-06-29] MEDS: DOCUSATE 100 MG CAPSULE PO ×2 (08:32→21:14)
[2021-06-29] MEDS: METOPROLOL ER 50 MG TABLET PO ×2 (08:32→21:15)
[2021-06-29] MEDS: AMLODIPINE 5 MG TABLET PO (08:32)
[2021-06-29] MEDS: SENNOSIDES 8.6 MG TABLET 17.2 MG PO ×2 (08:33→21:15)
[2021-06-29] MEDS: ASPIRIN EC 81 MG TABLET PO ×2 (08:33→21:15)
[2021-06-29] MEDS: polyethylene glycoL 3350 17 GM POWD.PACK PO (08:33)
[2021-06-29] MEDS: THIAMINE 100 MG TABLET PO (08:33)
--- NOTE | 2021-06-29 09:48 | PT.IPTN ---
Current Diagnoses Fracture of unspecified part of neck of left femur, initial encounter for closed fracture (06/24/21) Unspecified intracapsular fracture of left femur, initial encounter for closed fracture (06/24/21) Surgery Performed Operation Date: 06/25/21 16:45 Actual Procedures p left hip partial replacement(Left) - Jemma Mena MD Physical Therapy Treatment Note M2 PT-IP Current Condition Start: 06/26/21 17:03 Freq: NEEDED Status: Active Protocol: Document 06/26/21 12:00 DLM (Rec: 06/26/21 17:17 DLM [id number]) Physical Therapy Current Condition Current Condition Evaluation Date 06/26/21 Treatment Diagnosis left TAN, posterior, s/p fall, gait impaired Onset Date 06/24/21 Precautions Posterior Hip Precautions No Hip Flexion > 90 degrees,No Hip Internal Rotation,No Hip Adduction Weight Bearing Status Weight Bearing Status Weight Bear as Tolerated M3 PT-IP Subjective Start: 06/26/21 17:03 Freq: NEEDED Status: Active Protocol: Document 06/29/21 09:29 CLB (Rec: 06/29/21 10:11 CLB [id number]) Subjective Physical Therapy Visit Type Type Treatment Note Visit Start Time 09:29 Visit Stop Time 09:48 Total Visit Minutes 19 Number of PAYROLL ACCOUNTING SPECIALIST Visits 5 Physical Therapy Visit Comments Patient Comments Pt willing to work with therapy. Therapy Pain Assessment Pain When Pain Assessed At Rest Pain Present Pain Present Denied Pain M4 PT-IP Mobility and Gait Start: 06/26/21 17:03 Freq: NEEDED Status: Active Protocol: Document 06/29/21 09:29 CLB (Rec: 06/29/21 10:11 CLB [id number]) PT-Bed Mobility Assessment Supine to Sit Supine to Sit Moderate Assistance,1 Person Assistance,Bedrails Scooting Scooting to Edge of Bed Moderate Assistance PT-Transfer Assessment Sit to and From Stand Sit to and from Stand Minimal Assistance,1 Person Assistance,Use of Upper Extremities Equipment Transfer Assistive Device Gait Belt,Front Wheeled Walker Orthotic/Prosthetic Devices or Brace: No Transfers Transfer Destination Toilet Transfer Technique Stand Step Pivot Transfer Ability Level of Assist Minimal Assistance,1 Person Assistance,Use of Upper Extremities Comments Mobility Comments Pt performed ther ex in supine . Pt unable to recall hip precautions, went over pt precaution sheet with pt. Pt then required Mod A and increased time to get to EOB. Pt stood Min A and ambulated Min A to BR. Pt stood to urinate then sat on toilet stating he wanted to sit awhile and try to go. RN informed and took over care of pt. Gait Assessment Gait Gait Assistance Required: Minimum Assistance,1 Person Assist Distance (Feet) 10 Able to Maintain Weight Bearing Status Yes During Gait Assistive Devices Assistive Device Gait Belt,Front Wheeled Walker Orthotic/Prosthetic Devices or Brace: No Gait Deviations General Gait Pattern Antalgic,Decreased Stride Length,Decreased Feet Clearance,Step-to Gait,Wide Based Gait Factors Limiting Gait Function Factors Limiting Gait Function Decreased Activity Tolerance, Decreased Strength,Difficulty Following Directions, Incoordination,Limited Range of Motion,Pain,Poor Balance, Poor Safety Awareness Comments Gait Comments Pt with poor safety awareness requiring cues for walker management and proper positioning in walker for safety, pt also continues to ditch walker at approach to toilet relying on wall rails. PT-Balance Assessment Sitting Balance and Reactions Static Sitting Balance Ability Good Dynamic Sitting Balance Ability Fair Standing Balance and Reactions Static Standing Balance Ability Poor Dynamic Standing Balance Ability Poor Device Used FWW M5 PT-IP Objective Assessments Start: 06/26/21 17:03 Freq: NEEDED Status: Active Protocol: Document 06/26/21 12:00 DLM (Rec: 06/26/21 17:17 DLM [id number]) Orientation Orientation/Cognition Level of Alertness Alert Orientation Name,Birthday,Place,Situation Safety Awareness Decreased Safety Awareness Memory Description Short Term Impaired Comments he is pleasant and cooperative , drooling noted Gross Range of Motion Upper Extremity ROM Assessment Within Functional Limits Lower Extremity ROM Assessment Left Impaired Impairments left limited by TAN precautions and pain Strength Upper Extremity Strength Assessment Within Functional Limits Lower Extremity Strength Assessment Left Impaired Hip needs assist to move LE in bed , standing flexion 2+/5 Knee ext 2+/5 with thigh pain Ankle DF 4/5 Comments Strength Comments left hip limited by post TAN precautions Coordination Assessment Gross Coordination Gross Coordination WNL Sensation Assessment Sensation Gross Sensation WNL Comments Sensation Comments chronic LE edema, no numbness reported by pt Muscle Tone Muscle Tone WNL Yes M6 PT-IP Treatment Start: 06/26/21 17:03 Freq: NEEDED Status: Active Protocol: Document 06/29/21 09:29 CLB (Rec: 06/29/21 10:11 CLB [id number]) Physical Therapy Treatment Exercises Exercises Ankle Pumps,Gluteal Sets,Quad Sets,Heel Slides,Supine Hip Abduction Education Education Provided Precautions,Post-Op Packet, Safety M7 PT-IP Assessment and Plan Start: 06/26/21 17:03 Freq: NEEDED Status: Active Protocol: Document 06/29/21 09:29 CLB (Rec: 06/29/21 10:11 CLB [id number]) PT Summary Assessment and Plan Potential Rehabilitation Potential Good Status of Condition at Evaluation Evolving Summary Impairments Pain,ROM,Strength,Balance, Cognition,Bed Mobility, Transfers,Gait,Activity Tolerance Progress Towards Goals Progressing Toward Goals,Slow Progress due to Activity Tolerance Assessment Summary Pt able to perform hip theraputic exercises w/o increase in pain. Pt has difficulty remembering posterior hip precautions requiring max cues for safety during ambulation. Pt is requiring Mod A for bed mobility and Min A for sit<> stand and gait. Pt will benefit from SNF rehab to increase activity tolerance and strength for independent mobility. Goals Bed Mobility Goal Minimal Assistance Transfer Goal Minimal Assistance,Moderate Assistance,Front Wheeled Walker Gait Goal Minimal Assistance,Moderate Assistance,Front Wheel Walker Gait Distance 25 feet Days to Meet Goals 7 Frequency of Treatment Frequency Of Treatment Twice a Day Treatment Plan Physical Therapy Treatment Plan Bed Mobility Training,Transfer Training,Gait Training, Therapeutic Exercise,Balance Retraining,Post Op Education, Discharge Planning,Hot or Cold Pack,Neuromuscular Re-ed Other Recommendations and Next Treatment bed mob, LE ex, precautions, Focus transfers, increase gait as able. Precautions Other Precautions Pt unable to recall precautions. Recommendations To Nursing Amount of Assist Needed 2 Person Assist Discharge Recommendations PT Discharge Recommendations SNF Rehab Equipment Needed for Home Before FWW prior to DC if unsafe with Discharge SPC Transportation Needs at Discharge Wheelchair/Cabulance
[2021-06-29] MEDS: BISACODYL 10 MG SUPP PR (09:55)
[2021-06-29] MEDS: MAGNESIUM HYDROXIDE 30 ML UDC PO (10:28)
--- NOTE | 2021-06-29 10:30 | CM.DPC ---
Addendum entered by Julia Vo R.N. 06/29/21 14:06: Marilin from [facility] Called. Updated her on patient that he is here, but looking for placement. Updated her upon the barriers of his being homeless, and also, let her know that updated application was sent today for Medicaid. She will be assigning a licensed social worker for this case. She is not sure if it will be Jenni Anglin at this time, as they rotate social workers. She has this corporate event planner's phone number as well. E-mailed Jenni Anglin prior to this phone call to let her know that a new Medicaid application was sent on behalf of the patient. Addendum entered by Julia Vo R.N. 06/29/21 13:21: Patient's friend, Aric, assisted patient in completing Medicaid application. He listed his contact information. Faxed over the Medicaid application form over to [facility]. Updated Home and Community Application indicating that Medicaid application was faxed today. Will update [facility] today, as well as Jenni Anglin. Will also update [facility] in [place], and will follow up with [facility] in [place], since they were reviewing as well. Addendum entered by Julia Vo R.N. 06/29/21 11:18: Patient's friend, Aric Tinoco, came to see patient. His contact number is: [phone]. He lives in [place]. He has known patient for about 6 years. Asked him if patient would be able to stay with him, and he indicated, his place is too small to have him move in with him. Asked him if he can assist patient in filling out Medicaid application. He is in patient's room now, and is assisting patient in filling out form. Will go by his room later and picker feeder the form, and will check it again before faxing it over to Medicaid. Original Note: DCP Cont: Aracelis Lovett at [facility] called and indicated that they can't accept him secondary to the financial situation of after he completes his Medicare stay. This pillowcase sewer spoke to patient in his room. Asked him if he remembered filling out a Medicaid application before, and he didn't remember. It is unclear if he would know how to fill out the application at this point. Will consult with [employer] regarding the application. He also indicated that he has a friend named Aric who will be here to see him, and is aware of his situation. Reminded patient that his barrier of discharge is that he is homeless, and is not able to ambulate safely on his own. P: DCP to continue to follow and will consult with [employer] CONVERTER HELPER regarding Medicaid form, and if it is out of this pillowcase sewer's scope of practice to assist him in filling out the form. Julia Vo RN/[employer]
--- NOTE | 2021-06-29 13:35 | P.PN_ITS ---
Subjective Subjective Date Patient Seen: 06/29/21 Time Patient Seen: 13:35 Interval history: The patient is complaining of mild left hip pain. He has a rather poor historian. Denies numbness or tingling in his bilateral lower extremities. No nausea or vomiting. Exam Vital Signs (past 8 hours): - 06/29/21 06:00 06/29/21 08:00 06/29/21 08:03 Temperature 98.2 F Pulse Rate 101 H Respiratory Rate 18 Blood Pressure 156/96 H Pulse Oximetry 93 94 94 Oxygen Delivery Method Room Air Oxygen Flow Rate 0 Narrative Exam Narrative: Does show old 70-year-old male, resting comfortably in bed, no acute distress. The patient's affect is rather flat and he does not look up to answer my questions, he continues to scroll through Facebook, and yell at the TV. Incision is clean, dry, intact. Bilateral calves are soft, nontender to palpation. Right anterior knox has a clean dry dressing in place. Bilateral lower extremities with distal discoloration, likely due to vascular changes. Objective Labs Result Diagrams: 06/27/21 04:15 06/25/21 02:55 [facility] Medical History Cellulitis of left leg Congestive heart failure Elevated troponin Essential hypertension Hypertension Surgical History No pertinent past surgical history Family History Mother Hypertension Sister Hypertension Social History household members: none housing: other occupational status: unemployed Smoking Status: Current every day smoker alcohol intake: current additional social history: Lives in a hotel Assessment & Plan Post-op Postoperative Procedures: Procedures Operation Date: 06/25/21 16:45 Actual Procedure Side Surgeon p left hip partial replacement Left Jemma Mena MD Postoperative status narrative: Status post left hip hemiarthroplasty Postoperative plan narrative: The patient is to mobilize with PT and use a front wheeled walker. He is weight-bearing as tolerated. Continue to use aspirin 81 mg twice daily for DVT prophylaxis. The biggest concern is that patient typically lives out of his car. He is unsafe to return to his car at this point. Our care management team is working on getting him at his SNF placement. If no SNF will accept him, we will either have to discharge him to a motel once he is able to complete all his ADLs independently, or discharge back to living in his car. Quality VTE Deep Vein Thrombosis/Pulmonary Embolism Present on Admission: No
--- NOTE | 2021-06-29 13:46 | PT.IPTN ---
Current Diagnoses Fracture of unspecified part of neck of left femur, initial encounter for closed fracture (06/24/21) Unspecified intracapsular fracture of left femur, initial encounter for closed fracture (06/24/21) Surgery Performed Operation Date: 06/25/21 16:45 Actual Procedures p left hip partial replacement(Left) - Jemma Mena MD Physical Therapy Treatment Note M2 PT-IP Current Condition Start: 06/26/21 17:03 Freq: NEEDED Status: Active Protocol: Document 06/26/21 12:00 DLM (Rec: 06/26/21 17:17 DLM [id number]) Physical Therapy Current Condition Current Condition Evaluation Date 06/26/21 Treatment Diagnosis left TAN, posterior, s/p fall, gait impaired Onset Date 06/24/21 Precautions Posterior Hip Precautions No Hip Flexion > 90 degrees,No Hip Internal Rotation,No Hip Adduction Weight Bearing Status Weight Bearing Status Weight Bear as Tolerated M3 PT-IP Subjective Start: 06/26/21 17:03 Freq: NEEDED Status: Active Protocol: Document 06/29/21 13:35 CLB (Rec: 06/29/21 14:20 CLB [id number]) Subjective Physical Therapy Visit Type Type Treatment Note Visit Start Time 13:35 Visit Stop Time 13:46 Total Visit Minutes 11 Number of PUBLICITY CONSULTANT Visits 6 Physical Therapy Visit Comments Patient Comments Pt willing to do ther ex in chair only. Therapy Pain Assessment Pain When Pain Assessed At Rest Pain Present Pain Present Denied Pain M4 PT-IP Mobility and Gait Start: 06/26/21 17:03 Freq: NEEDED Status: Active Protocol: Document 06/29/21 09:29 CLB (Rec: 06/29/21 10:11 CLB [id number]) PT-Bed Mobility Assessment Supine to Sit Supine to Sit Moderate Assistance,1 Person Assistance,Bedrails Scooting Scooting to Edge of Bed Moderate Assistance PT-Transfer Assessment Sit to and From Stand Sit to and from Stand Minimal Assistance,1 Person Assistance,Use of Upper Extremities Equipment Transfer Assistive Device Gait Belt,Front Wheeled Walker Orthotic/Prosthetic Devices or Brace: No Transfers Transfer Destination Toilet Transfer Technique Stand Step Pivot Transfer Ability Level of Assist Minimal Assistance,1 Person Assistance,Use of Upper Extremities Comments Mobility Comments Pt performed ther ex in supine . Pt unable to recall hip precautions, went over pt precaution sheet with pt. Pt then required Mod A and increased time to get to EOB. Pt stood Min A and ambulated Min A to BR. Pt stood to urinate then sat on toilet stating he wanted to sit awhile and try to go. RN informed and took over care of pt. Gait Assessment Gait Gait Assistance Required: Minimum Assistance,1 Person Assist Distance (Feet) 10 Able to Maintain Weight Bearing Status Yes During Gait Assistive Devices Assistive Device Gait Belt,Front Wheeled Walker Orthotic/Prosthetic Devices or Brace: No Gait Deviations General Gait Pattern Antalgic,Decreased Stride Length,Decreased Feet Clearance,Step-to Gait,Wide Based Gait Factors Limiting Gait Function Factors Limiting Gait Function Decreased Activity Tolerance, Decreased Strength,Difficulty Following Directions, Incoordination,Limited Range of Motion,Pain,Poor Balance, Poor Safety Awareness Comments Gait Comments Pt with poor safety awareness requiring cues for walker management and proper positioning in walker for safety, pt also continues to ditch walker at approach to toilet relying on wall rails. PT-Balance Assessment Sitting Balance and Reactions Static Sitting Balance Ability Good Dynamic Sitting Balance Ability Fair Standing Balance and Reactions Static Standing Balance Ability Poor Dynamic Standing Balance Ability Poor Device Used FWW M5 PT-IP Objective Assessments Start: 06/26/21 17:03 Freq: NEEDED Status: Active Protocol: Document 06/26/21 12:00 DLM (Rec: 06/26/21 17:17 DLM [id number]) Orientation Orientation/Cognition Level of Alertness Alert Orientation Name,Birthday,Place,Situation Safety Awareness Decreased Safety Awareness Memory Description Short Term Impaired Comments he is pleasant and cooperative , drooling noted Gross Range of Motion Upper Extremity ROM Assessment Within Functional Limits Lower Extremity ROM Assessment Left Impaired Impairments left limited by TAN precautions and pain Strength Upper Extremity Strength Assessment Within Functional Limits Lower Extremity Strength Assessment Left Impaired Hip needs assist to move LE in bed , standing flexion 2+/5 Knee ext 2+/5 with thigh pain Ankle DF 4/5 Comments Strength Comments left hip limited by post TAN precautions Coordination Assessment Gross Coordination Gross Coordination WNL Sensation Assessment Sensation Gross Sensation WNL Comments Sensation Comments chronic LE edema, no numbness reported by pt Muscle Tone Muscle Tone WNL Yes M6 PT-IP Treatment Start: 06/26/21 17:03 Freq: NEEDED Status: Active Protocol: Document 06/29/21 13:35 CLB (Rec: 06/29/21 14:20 CLB [id number]) Physical Therapy Treatment Exercises Exercises Ankle Pumps,Gluteal Sets,Quad Sets,Seated Knee Flexion/ Extension Education Education Provided Precautions M7 PT-IP Assessment and Plan Start: 06/26/21 17:03 Freq: NEEDED Status: Active Protocol: Document 06/29/21 13:35 CLB (Rec: 06/29/21 14:20 CLB [id number]) PT Summary Assessment and Plan Potential Rehabilitation Potential Good Status of Condition at Evaluation Evolving Summary Impairments Pain,ROM,Strength,Balance, Cognition,Bed Mobility, Transfers,Gait,Activity Tolerance Progress Towards Goals Progressing Toward Goals,Slow Progress due to Activity Tolerance Assessment Summary Pt able to recall 2/3 hip precautions. Pt able to perform seated ther ex with redirecting back to task at hand. Pt will require SNF rehab for functional and independent mobility. Goals Bed Mobility Goal Minimal Assistance Transfer Goal Minimal Assistance,Moderate Assistance,Front Wheeled Walker Gait Goal Minimal Assistance,Moderate Assistance,Front Wheel Walker Gait Distance 25 feet Days to Meet Goals 7 Frequency of Treatment Frequency Of Treatment Twice a Day Treatment Plan Physical Therapy Treatment Plan Bed Mobility Training,Transfer Training,Gait Training, Therapeutic Exercise,Balance Retraining,Post Op Education, Discharge Planning,Hot or Cold Pack,Neuromuscular Re-ed Other Recommendations and Next Treatment bed mob, LE ex, precautions, Focus transfers, increase gait as able. Recommendations To Nursing Amount of Assist Needed 2 Person Assist Discharge Recommendations PT Discharge Recommendations SNF Rehab Equipment Needed for Home Before FWW prior to DC if unsafe with Discharge SPC Transportation Needs at Discharge Wheelchair/Cabulance
--- NOTE | 2021-06-29 14:16 | OT.IP.TRT ---
Current Diagnoses Fracture of unspecified part of neck of left femur, initial encounter for closed fracture (06/24/21) Unspecified intracapsular fracture of left femur, initial encounter for closed fracture (06/24/21) Surgery Performed Operation Date: 06/25/21 16:45 Actual Procedures p left hip partial replacement(Left) - Jemma Mena MD Occupational Therapy Treatment Note M2 OT-IP Current Condition Start: 06/27/21 10:58 Freq: Status: Active Protocol: Document 06/27/21 09:35 [facility] (Rec: 06/27/21 11:19 [facility] [id number]) Occupational Therapy Current Condition Current Condition Evaluation Date 06/27/21 Treatment Diagnosis Left femoral neck fracture displaced, decreased mobility Diagnosis Onset Date 06/24/21 Post Operative Precautions Posterior Hip Precautions No Hip Flexion > 90 degrees,No Hip Internal Rotation,No Hip Adduction Weight Bearing Status Weight Bearing Status Weight Bear as Tolerated M3 OT- IP Subjective and Pain Start: 06/27/21 10:58 Freq: Status: Active Protocol: Document 06/29/21 14:32 [facility] (Rec: 06/29/21 14:45 [facility] [id number]) OT- Subjective Occupational Therapy Visit Type Type Treatment Note Visit Start Time 14:16 Visit Stop Time 14:32 Total Visit Minutes 16 Occupational Therapy Visit Comments Patient Comments Pt not wanting to shower and a bit indifferent of working with OT today. Patient/Caregiver Goals To get to his car. OT Pain Assessment Pain When Pain Assessed At Rest Pain Present Pain Present Denied Pain M4 OT- IP ADL's Start: 06/27/21 10:58 Freq: Status: Active Protocol: Document 06/29/21 14:32 [facility] (Rec: 06/29/21 14:45 [facility] [id number]) OT [id number]-Dyeeqof General Evaluation Self-Feeding Ability Independent OT ADL-Grooming Comments OT Grooming Comments Pt not wanting to do at this time. OT ADL-Oral Care Comments Oral Care Comments Pt not wanting to perform. OT ADL-Dressing General Eval Lower Body Dressing Ability Moderate Assistance Comments OT Dressing Comments Pt able to alice/doff his right sock and not able to do for his left sock due to his hip precautions. Able to issue and educate use of sock aid and tax services intern for the pt. OT ADL-Bathing Comments OT Bathing Comments Pt refusing to shower at this time. M5 OT- IP IADL's Start: 06/27/21 10:58 Freq: Status: Active Protocol: Document 06/27/21 09:35 [facility] (Rec: 06/27/21 11:19 [facility] [id number]) OT-Instrumental Activities of Daily Living Home Safety Awareness Home Safety Comments Continue to assess as pt just mainly open to doing transfer to the recliner at this time. M6 OT- IP Functional Cognition Start: 06/27/21 10:58 Freq: Status: Active Protocol: Document 06/29/21 14:32 [facility] (Rec: 06/29/21 14:45 [facility] [id number]) Cognitive Factors Limiting Selfcare Function Cognitive Comments Cognitive Assessment Comments Pt able to recall 2/3 hip precautions. Pt not feeling up to showering today. M8 OT- IP Objective Assessments Start: 06/27/21 10:58 Freq: Status: Active Protocol: Document 06/27/21 09:35 [facility] (Rec: 06/27/21 11:19 [facility] [id number]) OT Gross Range of Motion Upper Extremity Range of Motion ROM Impairments Not able to assess. OT Strength Comments Strength Comments Pt at least 3-/5 . M9 OT- IP Assessment and Plan Start: 06/27/21 10:58 Freq: Status: Active Protocol: Document 06/29/21 14:32 [facility] (Rec: 06/29/21 14:45 [facility] [id number]) OT Summary Assessment and Plan Potential Rehabilitation Potential Fair Analytic Complexity at Evaluation Moderate Summary OT Impairments Strength,Balance,Functional Cognition,Functional Mobility, Grooming,Dressing,Toileting, Bathing,Toilet Transfers, Activity Tolerance Progress Towards Goals Slow Progress due to Activity Tolerance,Slow Progress due to Cognition Assessment Summary Pt not up for showering today but able to go over LB dressing equipment in order to help with his safety and independence . Pt will still benefit from skilled rehab as not safe to return to his car at this time. Goals Self-Feeding Goal Independent Grooming Goal Independent Dressing Goal Independent Toileting Goal Independent Bathing Goal Independent Toilet Transfer Goal Independent Days to Meet Goals 20 Frequency of Treatment Frequency Of Treatment Once a Day Treatment Plan OT Treatment Plan ADL Training,Functional Cognition Training,Functional Mobility,Patient/Family Education,Discharge Planning Other Treatment Recommendations and Next Pt to shower with adaptive Treatment Focus equipment with MARVA. Discharge Recommendations OT Discharge Recommendations SNF Rehab Transportation Needs at Discharge Wheelchair/Cabulance
[2021-06-29] MEDS: TAMSULOSIN 0.4 MG CAPSULE PO (16:18)
--- NOTE | 2021-06-29 16:58 | PM.PN.1 ---
Subjective Subjective Date Patient Seen: 06/29/21 Interval history: Patient is a 70-year-old male admitted to the hospital following a ground level fall resulting in a left femur fracture. He underwent unipolar prosthesis without difficulty. He has no specific complaints at this time. The patient remains in atrial fibrillation he has hypertension which has been on treated but blood pressure has improved over the past 2 days Exam Vital Signs (past 8 hours): - 06/29/21 12:30 06/29/21 14:01 06/29/21 15:15 Temperature 98.4 F 97.9 F Pulse Rate 98 H 98 H Respiratory Rate 17 18 Blood Pressure 140/66 131/80 Pulse Oximetry 98 97 99 Oxygen Delivery Method Room Air Oxygen Flow Rate 0 Narrative Exam Narrative: Pleasant male sitting in a chair in no obvious distress Resp Other: Lungs: Clear to auscultation Cardio Other: Cardiac exam: Irregularly irregular, normal S1-S2, 2/6 systolic ejection murmur GI Other: Abdomen: Soft nontender Extrem Other: Extremities: 2+ edema bilaterally, left hip with dressing in place right lower extremity with a bandage, dressing over a healing ulcer Objective Labs Result Diagrams: 06/27/21 04:15 06/25/21 02:55 PFSH Medical History Cellulitis of left leg Congestive heart failure Elevated troponin Essential hypertension Hypertension Surgical History No pertinent past surgical history Family History Mother Hypertension Sister Hypertension Social History household members: none housing: other occupational status: unemployed Smoking Status: Current every day smoker alcohol intake: current additional social history: Lives in a hotel Assessment & Plan Assessment & Plan narrative: left hip fracture status post unipolar prosthesis Continue PT OT Awaiting transfer to group home 2. Hypertension -continue metoprolol and amlodipine for now -will continue to monitor his blood pressure, meds adjusted yesterday 3. Atrial fibrillation -rate control -although the patient is at risk for stroke, given his chads Vasc score, he is a poor candidate for Coumadin anticoagulation, unlikely able to get Xarelto, he has been noncompliant with all medications previouslyAw -continue aspirin 4. Chronic diastolic heart failure -patient with no shortness of breaths -no evidence of heart failure during this admission Patient is awaiting placement Time Spent With Patient Critical Care time: I spent a total of [] minutes of critical care time on this patient's care today; this time is exclusive of procedural time. Quality VTE Deep Vein Thrombosis/Pulmonary Embolism Present on Admission: No
--- NOTE | 2021-06-29 17:46 | PC.NURSE ---
Pt up in recliner @ beginning of shift. Chair alarm in place. Dr. Nicole in to see patient. Discussion with MD and pt re last evening shift pt requiring straight catheterization d/t urinary retention. Order for flomax obtained and this was given. Pt without iv access and MD aware so telemetry was discontinued and ICU informed. Pt admits to left hip pain 11/08. Accepts scheduled ibuprofen. Pt is impulsive and moves self to attempt to stand. Chair alarm sounds and this scenario writer responds. Pt reports needs to go to bathroom. Pt wearing brief, but is still incontinent on floor on way to bathroom. This scenario writer insures pt's safety with ambulation. Pericare provided and brief changed. Walker use back to recliner. Pt is only slightly unsteady on feet.
[2021-06-30] VITALS (16 sets, daily range): BP systolic 128–162; BP diastolic 72–119; PULSE 67–100; RESP 16–18; TEMP 36.1–36.9; O2SAT 94–99
[2021-06-30] MEDS: IBUPROFEN 400 MG TABLET PO ×5 (04:51→21:58)
--- NOTE | 2021-06-30 08:15 | CM.DPC ---
Addendum entered by Julia Vo R.N. 06/30/21 13:09: Called principal statistical programmerGerson for some insight on motel vouchers. Patient is improving with his mobilities, and may be able to be ready for motel services if needed. Mirza emphasized, he has to be able to take care of himself, and the motel services would need to do an assessment, including talking to him on the phone as well. Patient had been refusing showers, and is not following P.T. recommendations regarding use of walker. He is now a one person assist. Gerson encouraged that if care management calls [facility], there is an extension for motel vouchers, but encourage to do this before 1600, otherwise, police need to do assessment. This master planner has already left messages with Daniela Warner, at [facility]. Options for discharge may be motel voucher, as it is uncertain if any facilities will accept patient. So far, all facilities in [place] have been contacted, all local facilities, and swing beds, including [place] and [facility]. Have attempted [place]. [facility] that [facility] can re-review on Friday, they do not do week-end admits due to staffing, and [facility], but may re-evaluate if they know that a Medicaid yoana was completed. Sae at [facility] has referral and is working on assigning a psychiatric social worker supervisor to patient. Original Note: DCP Cont: Zamzam from [facility] in [place] called and stated that they are not taking patients on the week-end, but can follow up on Friday. As stated, Medicaid application was sent yesterday with home and community services application, and Sae from [facility] called to state that an LEAD OXIDE MILL TENDER would be assigned. P: DCP to continue to follow. Will continue to work on placement. May attempt again today and mention that Medicaid yoana was filled out. Julia Vo, RN/Primary Care Nurse Practitioner
--- NOTE | 2021-06-30 09:40 | PT.IPTN ---
Current Diagnoses Fracture of unspecified part of neck of left femur, initial encounter for closed fracture (06/24/21) Unspecified intracapsular fracture of left femur, initial encounter for closed fracture (06/24/21) Surgery Performed Operation Date: 06/25/21 16:45 Actual Procedures p left hip partial replacement(Left) - Jemma Mena MD Physical Therapy Treatment Note M2 PT-IP Current Condition Start: 06/26/21 17:03 Freq: NEEDED Status: Active Protocol: Document 06/26/21 12:00 DLM (Rec: 06/26/21 17:17 DLM [id number]) Physical Therapy Current Condition Current Condition Evaluation Date 06/26/21 Treatment Diagnosis left TAN, posterior, s/p fall, gait impaired Onset Date 06/24/21 Precautions Posterior Hip Precautions No Hip Flexion > 90 degrees,No Hip Internal Rotation,No Hip Adduction Weight Bearing Status Weight Bearing Status Weight Bear as Tolerated M3 PT-IP Subjective Start: 06/26/21 17:03 Freq: NEEDED Status: Active Protocol: Document 06/30/21 09:17 CLB (Rec: 06/30/21 11:43 CLB [id number]) Subjective Physical Therapy Visit Type Type Treatment Note Visit Start Time 09:17 Visit Stop Time 09:40 Total Visit Minutes 23 Number of DOUGHNUT FRYER Visits 7 Physical Therapy Visit Comments Patient Comments Pt willing to take walk in [place]. Therapy Pain Assessment Pain When Pain Assessed During Mobility Pain Present Pain Present Pain Reported Location Left Hip Intensity 1 Scale Used Numeric (0 - 10) M4 PT-IP Mobility and Gait Start: 06/26/21 17:03 Freq: NEEDED Status: Active Protocol: Document 06/30/21 09:17 CLB (Rec: 06/30/21 11:43 CLB [id number]) PT-Transfer Assessment Sit to and From Stand Sit to and from Stand Contact Guard Assistance,1 Person Assistance,Use of Upper Extremities Equipment Transfer Assistive Device Gait Belt,Front Wheeled Walker Orthotic/Prosthetic Devices or Brace: No Transfers Transfer Destination Chair Transfer Technique Stand Step Pivot Transfer Ability Level of Assist Minimal Assistance,1 Person Assistance,Use of Upper Extremities Comments Mobility Comments Pt in chair performed ther ex in chair. Pt stood CGA and ambulated in jackson Min A with max cues for walker use as pt reaches out for rail on jackson wall using one hand on rail and one hand on FWW and would not return hand to FWW when directed. Pt returned to room reaching out for foot of bed and bed rail pushing walker away while reaching for arms of chair. For this reason pt requires Min A for safety during ambulation. Pt left in chair with all needs within reach and chair alarm on. Gait Assessment Gait Gait Assistance Required: Minimum Assistance,1 Person Assist Distance (Feet) 60 Able to Maintain Weight Bearing Status Yes During Gait Assistive Devices Assistive Device Gait Belt,Front Wheeled Walker Orthotic/Prosthetic Devices or Brace: No Gait Deviations General Gait Pattern Antalgic,Decreased Stride Length,Decreased Feet Clearance,Step-to Gait,Wide Based Gait Factors Limiting Gait Function Factors Limiting Gait Function Decreased Activity Tolerance, Decreased Strength,Difficulty Following Directions, Incoordination,Limited Range of Motion,Pain,Poor Balance, Poor Safety Awareness Comments Gait Comments Pt is impulsive and requires Min A for safety during gait as pt has poor safety awareness with walker. When pt uses walker appropriately he is steady requiring CGA but constantly reaches out for objects rather than using walker. PT-Balance Assessment Sitting Balance and Reactions Static Sitting Balance Ability Good Dynamic Sitting Balance Ability Fair Standing Balance and Reactions Static Standing Balance Ability Poor Dynamic Standing Balance Ability Poor Device Used FWW M5 PT-IP Objective Assessments Start: 06/26/21 17:03 Freq: NEEDED Status: Active Protocol: Document 06/26/21 12:00 DLM (Rec: 06/26/21 17:17 DLM [id number]) Orientation Orientation/Cognition Level of Alertness Alert Orientation Name,Birthday,Place,Situation Safety Awareness Decreased Safety Awareness Memory Description Short Term Impaired Comments he is pleasant and cooperative , drooling noted Gross Range of Motion Upper Extremity ROM Assessment Within Functional Limits Lower Extremity ROM Assessment Left Impaired Impairments left limited by TAN precautions and pain Strength Upper Extremity Strength Assessment Within Functional Limits Lower Extremity Strength Assessment Left Impaired Hip needs assist to move LE in bed , standing flexion 2+/5 Knee ext 2+/5 with thigh pain Ankle DF 4/5 Comments Strength Comments left hip limited by post TAN precautions Coordination Assessment Gross Coordination Gross Coordination WNL Sensation Assessment Sensation Gross Sensation WNL Comments Sensation Comments chronic LE edema, no numbness reported by pt Muscle Tone Muscle Tone WNL Yes M6 PT-IP Treatment Start: 06/26/21 17:03 Freq: NEEDED Status: Active Protocol: Document 06/30/21 09:17 CLB (Rec: 06/30/21 11:43 CLB [id number]) Physical Therapy Treatment Exercises Exercises Ankle Pumps,Gluteal Sets,Quad Sets,Supine Hip Abduction Education Education Provided Precautions,Safety M7 PT-IP Assessment and Plan Start: 06/26/21 17:03 Freq: NEEDED Status: Active Protocol: Document 06/30/21 09:17 CLB (Rec: 06/30/21 11:43 CLB [id number]) PT Summary Assessment and Plan Potential Rehabilitation Potential Good Status of Condition at Evaluation Evolving Summary Impairments Pain,ROM,Strength,Balance, Cognition,Bed Mobility, Transfers,Gait,Activity Tolerance Progress Towards Goals Progressing Toward Goals Goals Bed Mobility Goal Minimal Assistance Transfer Goal Minimal Assistance,Moderate Assistance,Front Wheeled Walker Gait Goal Minimal Assistance,Moderate Assistance,Front Wheel Walker Gait Distance 25 feet Days to Meet Goals 7 Frequency of Treatment Frequency Of Treatment Twice a Day Treatment Plan Physical Therapy Treatment Plan Bed Mobility Training,Transfer Training,Gait Training, Therapeutic Exercise,Balance Retraining,Post Op Education, Discharge Planning,Hot or Cold Pack,Neuromuscular Re-ed Other Recommendations and Next Treatment bed mob, LE ex, precautions, Focus transfers, increase gait as able. Precautions Posterior Hip Precautions No Hip Flexion > 90 degrees,No Hip Internal Rotation,No Hip Adduction Other Precautions Pt unable to recall precautions. Recommendations To Nursing Amount of Assist Needed 1 Person Assist Discharge Recommendations PT Discharge Recommendations SNF Rehab Equipment Needed for Home Before FWW prior to DC if unsafe with Discharge SPC Transportation Needs at Discharge Wheelchair/Cabulance
[2021-06-30] MEDS: ACETAMINOPHEN 325 MG TABLET 650 MG PO ×3 (09:50→21:57)
[2021-06-30] MEDS: MULTIVITAMIN 1 TABLET 1 TAB PO (09:50)
[2021-06-30] MEDS: FOLIC ACID 1 MG TABLET PO (09:50)
[2021-06-30] MEDS: METOPROLOL ER 50 MG TABLET PO ×2 (09:50→21:59)
[2021-06-30] MEDS: ASPIRIN EC 81 MG TABLET PO ×2 (09:50→21:58)
[2021-06-30] MEDS: DOCUSATE 100 MG CAPSULE PO ×2 (09:50→21:58)
[2021-06-30] MEDS: AMLODIPINE 5 MG TABLET 10 MG PO (09:50)
[2021-06-30] MEDS: polyethylene glycoL 3350 17 GM POWD.PACK PO (09:51)
[2021-06-30] MEDS: SENNOSIDES 8.6 MG TABLET 17.2 MG PO ×2 (09:51→21:58)
[2021-06-30] MEDS: TAMSULOSIN 0.4 MG CAPSULE PO (09:51)
--- NOTE | 2021-06-30 10:29 | P.PN_ITS ---
Subjective Subjective Date Patient Seen: 06/30/21 Time Patient Seen: 10:29 Interval history: The patient states his pain is ?basically non-existent. ? And he is feeling okay. He understands that we are waiting for SNF placement and there has been some issues with his Medicaid application. He denies fevers, chills, night sweats. No nausea or vomiting. No numbness or tingling. Exam Vital Signs (past 8 hours): - 06/30/21 03:00 06/30/21 03:26 06/30/21 07:55 Temperature 97 F L Pulse Rate 93 H Respiratory Rate 18 Blood Pressure 129/80 Pulse Oximetry 96 96 97 06/30/21 08:00 06/30/21 09:50 Temperature 97.8 F Pulse Rate 67 Respiratory Rate 18 Blood Pressure 131/81 131/81 Pulse Oximetry 96 Oxygen Delivery Method Room Air Oxygen Flow Rate 0 Narrative Exam Narrative: 70-year-old male, resting comfortably in his chair, no acute distress. His affect and responses are somewhat more appropriate today as compared to a, he still makes minimal eye contact when answering my questions. Motor functions are intact in bilateral lower extremities. Sensation is grossly intact to light touch in bilateral lower extremities. Both legs are warm and dry. Incision is clean, dry, intact. Bilateral calves are soft, nontender to palpation. Objective Labs Result Diagrams: 06/27/21 04:15 06/25/21 02:55 [facility] Medical History Cellulitis of left leg Congestive heart failure Elevated troponin Essential hypertension Hypertension Surgical History No pertinent past surgical history Family History Mother Hypertension Sister Hypertension Social History household members: none housing: other occupational status: unemployed Smoking Status: Current every day smoker alcohol intake: current additional social history: Lives in a hotel Assessment & Plan Post-op Postoperative Procedures: Procedures Operation Date: 06/25/21 16:45 Actual Procedure Side Surgeon p left hip partial replacement Left Jemma Mena MD Postoperative status narrative: Stable status post left hip hemiarthroplasty Postoperative plan narrative: The patient is to mobilize with PT and use a front wheeled walker. He is weight-bearing as tolerated. Continue to use aspirin 81 mg twice daily for DVT prophylaxis. The biggest concern is that patient typically lives out of his car. He is unsafe to return to his car at this point. Our care management team is working on getting him at his SNF placement, but they are not accepting patients over the weekend. If no SNF will accept him, we will either have to discharge him to a motel once he is able to complete all his ADLs independently. Quality VTE Deep Vein Thrombosis/Pulmonary Embolism Present on Admission: No
--- NOTE | 2021-06-30 13:37 | PT.IPTN ---
Current Diagnoses Fracture of unspecified part of neck of left femur, initial encounter for closed fracture (06/24/21) Unspecified intracapsular fracture of left femur, initial encounter for closed fracture (06/24/21) Surgery Performed Operation Date: 06/25/21 16:45 Actual Procedures p left hip partial replacement(Left) - Jemma Mena MD Physical Therapy Note- Goals Update M2 PT-IP Current Condition Start: 06/26/21 17:03 Freq: NEEDED Status: Active Protocol: Document 06/26/21 12:00 DLM (Rec: 06/26/21 17:17 DLM [id number]) Physical Therapy Current Condition Current Condition Evaluation Date 06/26/21 Treatment Diagnosis left TAN, posterior, s/p fall, gait impaired Onset Date 06/24/21 Precautions Posterior Hip Precautions No Hip Flexion > 90 degrees,No Hip Internal Rotation,No Hip Adduction Weight Bearing Status Weight Bearing Status Weight Bear as Tolerated Document 06/30/21 13:33 DLM (Rec: 06/30/21 13:37 DLM [id number]) PT Summary Assessment and Plan Summary Impairments Pain,ROM,Strength,Balance, Cognition,Bed Mobility, Transfers,Gait,Activity Tolerance Progress Towards Goals Progressing Toward Goals Assessment Summary updated PT goals based on his progress and his need to be independent at home Goals Bed Mobility Goal Independent Transfer Goal Independent,Front Wheeled Walker Gait Goal Independent,Front Wheel Walker Gait Distance 150 feet Other Goals *Demonstrate safe use of posterior hip precautions 06/30/21 Updated PT goals Days to Meet Goals 10 Frequency of Treatment Frequency Of Treatment Twice a Day Treatment Plan Physical Therapy Treatment Plan Bed Mobility Training,Transfer Training,Gait Training, Therapeutic Exercise,Balance Retraining,Post Op Education, Discharge Planning,Hot or Cold Pack,Neuromuscular Re-ed Recommendations To Nursing Amount of Assist Needed 1 Person Assist Discharge Recommendations PT Discharge Recommendations SNF Rehab Equipment Needed for Home Before FWW Discharge Transportation Needs at Discharge Wheelchair/Cabulance No charges associated with this note. Coordinated care with the HOUSE DESIGNER.
--- NOTE | 2021-06-30 14:31 | OT.IPNOTE ---
COMMUNITY SERVICE COORDINATOR check on pt twice and also nursing aid to see if pt wanting to get up to do therapy. Pt not wanting to get up at this time. Therefore, unable to see pt for OT needs today.
--- NOTE | 2021-06-30 14:43 | PC.NURSE ---
A&Ox4. VSS. Denies pain. Review hip precautions with patient to reinforce proper positioning. CMS intact. Patient up in chair most of this shift. Aquacel dressing CDI. No Iv access. Call light within reach, bed low.
--- NOTE | 2021-06-30 14:54 | PT-IP ANOTE ---
Pt refused PT twice this afternoon. Will check back on pt in AM.
--- NOTE | 2021-06-30 17:16 | P.PN_ITS ---
Subjective Subjective Date Patient Seen: 06/30/21 Interval history: The patient is a 70-year-old male who is status post left hip unipolar prosthesis for left femur neck fracture. Patient has no specific complaints. He is sitting in a chair. He continues to await placement. He reports no pain. He denies any shortness of breath. He denies any chest pain. Exam Vital Signs (past 8 hours): - 06/30/21 09:50 06/30/21 11:00 06/30/21 12:00 Temperature 97.8 F Pulse Rate 77 Respiratory Rate 18 Blood Pressure 131/81 136/86 Pulse Oximetry 99 99 06/30/21 12:52 06/30/21 15:00 06/30/21 16:00 Temperature 98.2 F Pulse Rate 77 100 H Respiratory Rate 16 Blood Pressure 136/86 134/86 Pulse Oximetry 97 97 Oxygen Delivery Method Room Air Oxygen Flow Rate 0 Narrative Exam Narrative: Pleasant gentleman sitting in a chair in no obvious distress Resp Other: Lungs clear to auscultation Cardio Other: Cardiac exam: Early irregular, normal S1-S2 GI Other: Abdomen: Soft nontender nondistended Back/Spine/Pelvis Other: Left hip with dressing in place no drainage Extrem Other: Extremity no edema Objective Labs Result Diagrams: 06/27/21 04:15 06/25/21 02:55 [facility] Medical History Cellulitis of left leg Congestive heart failure Elevated troponin Essential hypertension Hypertension Surgical History No pertinent past surgical history Family History Mother Hypertension Sister Hypertension Social History household members: none housing: other occupational status: unemployed Smoking Status: Current every day smoker alcohol intake: current additional social history: Lives in a hotel Assessment & Plan Assessment & Plan narrative: 1. Left hip fracture status post unipolar prosthesis -continue PT OT -awaiting place -continue aspirin b.i.d. for DVT prophylaxis 2. Hypertension -blood pressure and control improved on metoprolol and amlodipine -will continue at discharge 3. Atrial fibrillation -chronic atrial fibrillation -patient is not anticoagulated, but will continue aspirin -rate controlled on metoprolol 4. Chronic diastolic heart failure -asymptomatic at this time Patient is awaiting transfer to intermediate for ongoing care Time Spent With Patient Critical Care time: I spent a total of [] minutes of critical care time on this patient's care today; this time is exclusive of procedural time. Quality VTE Deep Vein Thrombosis/Pulmonary Embolism Present on Admission: No
[2021-07-01] VITALS (15 sets, daily range): BP systolic 137–152; BP diastolic 61–103; PULSE 78–94; RESP 16–19; TEMP 36.2–36.6; O2SAT 95–98
[2021-07-01] MEDS: IBUPROFEN 400 MG TABLET PO ×6 (00:44→20:56)
[2021-07-01] MEDS: SENNOSIDES 8.6 MG TABLET 17.2 MG PO ×2 (08:47→20:56)
[2021-07-01] MEDS: METOPROLOL ER 50 MG TABLET PO ×2 (08:47→20:57)
[2021-07-01] MEDS: FOLIC ACID 1 MG TABLET PO (08:47)
[2021-07-01] MEDS: MULTIVITAMIN 1 TABLET 1 TAB PO (08:47)
[2021-07-01] MEDS: ACETAMINOPHEN 325 MG TABLET 650 MG PO ×3 (08:47→20:56)
[2021-07-01] MEDS: AMLODIPINE 5 MG TABLET 10 MG PO (08:47)
[2021-07-01] MEDS: polyethylene glycoL 3350 17 GM POWD.PACK PO (08:47)
[2021-07-01] MEDS: TAMSULOSIN 0.4 MG CAPSULE PO (08:47)
[2021-07-01] MEDS: ASPIRIN EC 81 MG TABLET PO ×2 (08:47→20:56)
[2021-07-01] MEDS: DOCUSATE 100 MG CAPSULE PO ×2 (08:47→20:56)
--- NOTE | 2021-07-01 09:23 | PM.PN.1 ---
Exam Vital Signs (past 8 hours): - 07/01/21 04:00 07/01/21 04:30 07/01/21 07:47 Temperature 97.9 F 97.4 F L Pulse Rate 92 H 83 Respiratory Rate 18 18 Blood Pressure 146/81 H 148/93 H Pulse Oximetry 95 95 96 07/01/21 08:00 Temperature Pulse Rate Respiratory Rate Blood Pressure Pulse Oximetry 97 Oxygen Delivery Method Room Air Oxygen Flow Rate 0 Objective Labs Result Diagrams: 06/27/21 04:15 06/25/21 02:55 PFSH Medical History Cellulitis of left leg Congestive heart failure Elevated troponin Essential hypertension Hypertension Surgical History No pertinent past surgical history Family History Mother Hypertension Sister Hypertension Social History household members: none housing: other occupational status: unemployed Smoking Status: Current every day smoker alcohol intake: current additional social history: Lives in a hotel Assessment & Plan Assessment & Plan narrative: Patient is admitted after surgery. Patient has been stable and progressing with physical therapy. Patient is neurovascularly intact on exam. Patient has no signs or symptoms of DVT. Patient's dressing is clean dry and intact. Patient is waiting on placement due to being homeless. No changes for disposition at this time, plan to d/c to SNF when available. Time Spent With Patient Critical Care time: I spent a total of [] minutes of critical care time on this patient's care today; this time is exclusive of procedural time. Quality VTE Deep Vein Thrombosis/Pulmonary Embolism Present on Admission: No
--- NOTE | 2021-07-01 11:45 | PT.IPTN ---
Current Diagnoses Fracture of unspecified part of neck of left femur, initial encounter for closed fracture (06/24/21) Unspecified intracapsular fracture of left femur, initial encounter for closed fracture (06/24/21) Surgery Performed Operation Date: 06/25/21 16:45 Actual Procedures p left hip partial replacement(Left) - Jemma Mena MD Physical Therapy Treatment Note M2 PT-IP Current Condition Start: 06/26/21 17:03 Freq: NEEDED Status: Active Protocol: Document 06/26/21 12:00 DLM (Rec: 06/26/21 17:17 DL [id number]) Physical Therapy Current Condition Current Condition Evaluation Date 06/26/21 Treatment Diagnosis left TAN, posterior, s/p fall, gait impaired Onset Date 06/24/21 Precautions Posterior Hip Precautions No Hip Flexion > 90 degrees,No Hip Internal Rotation,No Hip Adduction Weight Bearing Status Weight Bearing Status Weight Bear as Tolerated M3 PT-IP Subjective Start: 06/26/21 17:03 Freq: NEEDED Status: Active Protocol: Document 07/01/21 11:33 [facility] (Rec: 07/01/21 11:45 [facility] [id number]) Subjective Physical Therapy Visit Type Type Treatment Note Visit Start Time 10:50 Visit Stop Time 11:25 Total Visit Minutes 30 Number of WATER SOFTENER SERVICER Visits 0 Physical Therapy Visit Comments Patient Comments Pt willing to do PT and ambulate Therapy Pain Assessment Pain When Pain Assessed During Mobility Pain Present Pain Present Denied Pain M4 PT-IP Mobility and Gait Start: 06/26/21 17:03 Freq: NEEDED Status: Active Protocol: Document 07/01/21 11:33 [facility] (Rec: 07/01/21 11:45 [facility] [id number]) PT-Transfer Assessment Sit to and From Stand Sit to and from Stand Contact Guard Assistance,1 Person Assistance,Use of Upper Extremities Equipment Transfer Assistive Device Gait Belt,Front Wheeled Walker Orthotic/Prosthetic Devices or Brace: No Transfers Transfer Destination Toilet Transfer Technique Stand Step Pivot Transfer Ability Level of Assist Contact Guard Assistance Comments Mobility Comments pt in chair, performed thex ex in chait, pt able to transfer to stand with CGA, no c/o pain, ambulated to the hallway but then needed to go to the bathroom so we turned around and he ambulated to the bathroom, pt tried standing to void despite being asked to sit. He had difficulty voiding into the toilet and the floor needed to be cleaned . He did sit for a brief and sock change and then was ready to return to bedside chair Gait Assessment Gait Gait Assistance Required: Contact Guard Assist Distance (Feet) 20 Able to Maintain Weight Bearing Status Yes During Gait Assistive Devices Assistive Device Gait Belt,Front Wheeled Walker Gait Deviations General Gait Pattern Antalgic,Decreased Stride Length,Decreased Feet Clearance,Step-to Gait,Wide Based Gait Factors Limiting Gait Function Factors Limiting Gait Function Decreased Activity Tolerance, Decreased Strength,Difficulty Following Directions, Incoordination,Limited Range of Motion,Pain,Poor Balance, Poor Safety Awareness Comments Gait Comments Pt wanted to find his SPC but I told him he needed to continue using the walker at this time. I was not able to find his SPC in the room and he was frustated by that. He was able to ambulate with CGA but Pt is impulsive and needed verbal cueing to avoid twisting his left hip with turns and with transfer into the chair. M5 PT-IP Objective Assessments Start: 06/26/21 17:03 Freq: NEEDED Status: Active Protocol: Document 06/26/21 12:00 DLM (Rec: 06/26/21 17:17 DL [id number]) Orientation Orientation/Cognition Level of Alertness Alert Orientation Name,Birthday,Place,Situation Safety Awareness Decreased Safety Awareness Memory Description Short Term Impaired Comments he is pleasant and cooperative , drooling noted Gross Range of Motion Upper Extremity ROM Assessment Within Functional Limits Lower Extremity ROM Assessment Left Impaired Impairments left limited by TAN precautions and pain Strength Upper Extremity Strength Assessment Within Functional Limits Lower Extremity Strength Assessment Left Impaired Hip needs assist to move LE in bed , standing flexion 2+/5 Knee ext 2+/5 with thigh pain Ankle DF 4/5 Comments Strength Comments left hip limited by post TAN precautions Coordination Assessment Gross Coordination Gross Coordination WNL Sensation Assessment Sensation Gross Sensation WNL Comments Sensation Comments chronic LE edema, no numbness reported by pt Muscle Tone Muscle Tone WNL Yes M6 PT-IP Treatment Start: 06/26/21 17:03 Freq: NEEDED Status: Active Protocol: Document 07/01/21 11:33 [facility] (Rec: 07/01/21 11:45 [facility] [id number]) Physical Therapy Treatment Exercises Exercises Ankle Pumps,Gluteal Sets,Quad Sets,Supine Hip Abduction Education Education Provided Precautions,Safety M7 PT-IP Assessment and Plan Start: 06/26/21 17:03 Freq: NEEDED Status: Active Protocol: Document 07/01/21 11:33 [facility] (Rec: 07/01/21 11:45 [facility] [id number]) PT Summary Assessment and Plan Potential Rehabilitation Potential Good Status of Condition at Evaluation Evolving Summary Impairments Pain,ROM,Strength,Balance, Cognition,Bed Mobility, Transfers,Gait,Activity Tolerance Progress Towards Goals Progressing Toward Goals Assessment Summary updated PT goals based on his progress and his need to be independent at home. PT is able to recall 2/3 hip precautions however with ambulation needed cues to avoid twising and flexing his hip past 90 with sitting. He is CGA for both transfers and gait today with the verbal cues. Pt denied pain today and following treatment he was positioned comfortably in the bedside chair with the call light in reach and bed alarm on Goals Bed Mobility Goal Independent Transfer Goal Independent,Front Wheeled Walker Gait Goal Independent,Front Wheel Walker Gait Distance 150 feet Other Goals *Demonstrate safe use of posterior hip precautions 06/30/21 Updated PT goals Days to Meet Goals 10 Frequency of Treatment Frequency Of Treatment Twice a Day Treatment Plan Physical Therapy Treatment Plan Bed Mobility Training,Transfer Training,Gait Training, Therapeutic Exercise,Balance Retraining,Post Op Education, Discharge Planning,Hot or Cold Pack,Neuromuscular Re-ed Precautions Posterior Hip Precautions No Hip Flexion > 90 degrees,No Hip Internal Rotation,No Hip Adduction Other Precautions pt able to recall 2/3 precautions Recommendations To Nursing Amount of Assist Needed 1 Person Assist Discharge Recommendations PT Discharge Recommendations SNF Rehab Equipment Needed for Home Before FWW Discharge Transportation Needs at Discharge Wheelchair/Cabulance
--- NOTE | 2021-07-01 13:40 | CM.DPC ---
DCP Continued: CM spoke with PT today and they stated that patient is doing a lot better he is impulsive with his ambulation so they recommend contact garde- but he is able to ambulate independently. Contacted Daniela Mathur, Community Bath Mixer at the [facility] at [phone] ex [phone], was then directed to the Hotel Voucher program line at [phone]- Cm called that line and left a voice message trying to see if patient will qualify for a hotel voucher for a [place] days at [place]. All SNFs in local area denied accepting patient except [facility] in [place] will re-review on friday to determine if they can accept. CM department will follow up with medicaid [place] application. Plan: possible SNF to [place] if they accept - will need a PASRR. However more likely DC to [facility] threw the voucher program. Hawa Mena RN case manager
--- NOTE | 2021-07-01 14:56 | P.PN_ITS ---
Subjective Subjective Date Patient Seen: 07/01/21 Interval history: 70-year-old male homeless status, history of hypertension, chronic atrial fibrillation, not anticoagulated status post left hip unipolar for left femoral neck fracture awaiting placement. He denies significant hip pain and has no complaints. Exam Vital Signs (past 8 hours): - 07/01/21 07:40 07/01/21 07:47 07/01/21 08:00 Temperature 97.4 F L Pulse Rate 83 Respiratory Rate 18 Blood Pressure 148/93 H Pulse Oximetry 95 96 97 07/01/21 11:52 07/01/21 12:04 Temperature 97.2 F L Pulse Rate 87 Respiratory Rate 19 Blood Pressure 143/103 H Pulse Oximetry 97 97 Oxygen Delivery Method Room Air Oxygen Flow Rate 0 Narrative Exam Narrative: General: Alert, pleasant and sitting in chair appearing comfortable Lungs: Breathing nonlabored Extremities: No distal edema, left hip postop dressing clean and dry Objective Labs Result Diagrams: 06/27/21 04:15 06/25/21 02:55 [facility] Medical History Cellulitis of left leg Congestive heart failure Elevated troponin Essential hypertension Hypertension Surgical History No pertinent past surgical history Family History Mother Hypertension Sister Hypertension Social History household members: none housing: other occupational status: unemployed Smoking Status: Current every day smoker alcohol intake: current additional social history: Lives in a hotel Assessment & Plan Assessment & Plan narrative: 1. Left hip fracture status post unipolar prosthesis -continue PT OT -awaiting place -continue aspirin b.i.d. for DVT prophylaxis 2. Hypertension -blood pressure and control improved on metoprolol and amlodipine -will continue at discharge 3. Atrial fibrillation -chronic atrial fibrillation -patient is not anticoagulated, but will continue aspirin -rate controlled on metoprolol 4. Chronic diastolic heart failure -asymptomatic at this time Patient is awaiting transfer to senior care for ongoing care verses discharge to [facility] if able to ambulate safely on his own. Time Spent With Patient Critical Care time: I spent a total of [] minutes of critical care time on this patient's care today; this time is exclusive of procedural time. Quality VTE Deep Vein Thrombosis/Pulmonary Embolism Present on Admission: No
--- NOTE | 2021-07-01 23:18 | PC.NURSE ---
Tried to coax pt to shower throughout shift, and tried to change brief every time he used the bathroom. Pt refused, stating I'll shower and change before I go to bed. Pt's mood changed around 2244 and he wanted to immediately get in bed, without showering or changing, stating I am in a VERY BAD mood and will absolutely not change or shower. I'm going to sleep.
[2021-07-02] VITALS (8 sets, daily range): BP systolic 125–156; BP diastolic 78–99; PULSE 70–88; RESP 16–18; TEMP 35.6–36.6; O2SAT 95–99
[2021-07-02] MEDS: IBUPROFEN 400 MG TABLET PO ×3 (04:12→13:16)
--- NOTE | 2021-07-02 07:40 | PM.DS.1 ---
History of Present Illness History of Present Illness Date Patient Seen: 07/02/21 Time Patient Seen: 07:41 Chief complaint: Mild left hip pain Narrative: The patient is complaining of mild left hip pain after his cemented left hip bipolar prosthesis placement. He denies nausea or vomiting. No fevers, chills, night sweats. No numbness or tingling. Overall he is improving significantly, especially with physical therapy over the weekend. We have been working on SNF placement, however this appears more and more unlikely. The patient is able to function independently, and therefore we are considering discharging to either [facility] or to a friend's house. Discharge Providers Provider Date of admission: 06/24/21 22:11 Discharge Date: 07/02/21 Consults: 06/24/21 22:01 Consult to Physician Routine Comment: Consulting Provider: Jemma Mena Reason for consultation: Lt femoral neck fracture Has provider been notified: Yes 06/25/21 17:15 Consult to Respiratory Therapy Evaluate & Treat Comment: Physician Instructions: Evaluate and treat 06/25/21 17:24 Consult to Respiratory Therapy Evaluate & Treat Comment: Physician Instructions: Evaluate and treat 06/25/21 17:31 Consult to Anesthesiology Routine Comment: Consulting Provider: Anesthesiologist Reason for consultation: Regional block for post operative pain control 06/25/21 21:28 Consult to Discharge Planning Routine Comment: Rehab at assisted facility Consult to Physical Therapy Evaluate & Treat Comment: Physician Instructions: post op TAN protocol Consult to Respiratory Therapy Evaluate & Treat Comment: Physician Instructions: Evaluate and treat 06/26/21 14:55 Consult to Occupational Therapy Evaluate & Treat Comment: Physician Instructions: Evaluate and treat 06/27/21 11:32 Consult to Pastoral Services Routine Comment: Consult for housing information Discharge provider: Imelda Joe PA-C Summary Hospital Course Discharge Diagnosis: Left femoral neck fracture displaced Hospital Course: Procedure: Left hip cemented unipolar Same procedure as scheduled: Yes Indications: The patient has had progressively worsening left hip pain with radiographic changes consistent with arthritis. Non-operative management has failed and the patient has requested total hip replacement. The risks, benefits and alternatives to surgery were discussed with the patient prior to proceeding. Risks discussed included, but were not limited to, failure to relieve pain, leg length discrepancy, dislocation, stiffness, infection, nerve damage, deep venous thrombosis, pulmonary embolism, stroke, coma, heart attack, permanent paralysis and , as well as the potential need for eventual revision of the prosthetic. Surgeon: Jemma Mena Agricultural Research Technician: Imelda Joe Anesthesia Type: General Operative Notes Findings: Displaced left femoral neck fracture, soft bone, good stability Closure Type: primary Specimen(s): none sent Prosthetic devices, grafts, tissues, transplants, or devices: Mena and nephew a size 14 high offset Synergy cemented, 49 mm head, +0 neck Applied: drain(s) Estimated Blood Loss (mL): 250 Blood products transfused: none The patient 1st to stay with physical therapy. Our care management team was attempting to get him SNF placement, however this proved increasingly difficult. Therefore the patient will likely be discharged to a hotel or friend's house. Exam Vital Signs (past 8 hours): - 07/02/21 00:00 07/02/21 04:00 07/02/21 07:15 Temperature 97.6 F 97.9 F Pulse Rate 88 86 Respiratory Rate 18 18 Blood Pressure 139/78 156/99 H Pulse Oximetry 98 98 98 Oxygen Delivery Method Room Air Oxygen Flow Rate 0 Narrative Exam Narrative: Six hundred sixty 10-year-old male, resting comfortably in his chair, no acute distress. He is sleeping with a blanket over his head for removes it when I ask. Bilateral lower extremity motor functions are intact. He is grossly intact to light touch in bilateral lower extremities. Incision is clean, dry, intact. Bilateral calves are soft, nontender to palpation. Objective Labs Result Diagrams: 06/27/21 04:15 06/25/21 02:55 [facility] Medical History Cellulitis of left leg Congestive heart failure Elevated troponin Essential hypertension Hypertension Surgical History No pertinent past surgical history Family History Mother Hypertension Sister Hypertension Social History household members: none housing: other occupational status: unemployed Smoking Status: Current every day smoker alcohol intake: current additional social history: Lives in a hotel Discharge Assessment & Plan Assessment and Plan Assessment: Stable status post left hip rony-arthroplasty. Plan of Treatment: -[facility] or friend's house today. -aspirin 81 mg twice daily for DVT prophylaxis -weight bearing as tolerated with front wheel walker -OTC Tylenol plus ibuprofen for pain. He was given a few oxycodone for moderate to severe pain -Follow-up with Dr. Mena in 7-10 days for postoperative visit Discharge Plan Discharge Plan Patient Disposition: Released, Other Discharge orders & Medications Discharge Orders: Discharge (Order); Ordered 07/02/21 Ordered By: Imelda Joe Prescriptions: New acetaminophen 500 mg capsule 500 mg PO Q4-6H MDD Max 6 tabs per day PRN (Reason: pain) Qty: 90 RF: 0 aspirin 81 mg Tablet,Delayed Release (Dr/Ec) 81 mg PO BID PRN (Reason: To prevent blood clots x6 weeks) Qty: 90 RF: 0 docusate sodium 100 mg Capsule 100 mg PO BID PRN (Reason: Constipation from the narcotic pain medications) Qty: 30 RF: 0 ibuprofen 400 mg Tablet 400 mg PO Q4HR MDD Max 6 tabs per day PRN (Reason: Pain/inflammation) Qty: 90 RF: 0 oxycodone 5 mg Tablet 5 mg PO Q8H PRN (Reason: Pain, Moderate-severe) Qty: 7 RF: 0 tamsulosin [Flomax] 0.4 mg Capsule 0.4 mg PO DAILY PRN (Reason: Difficulty with urination) Qty: 30 RF: 1 Continued melatonin 10 mg Tablet 10 mg PO BEDTIME PRN (Reason: Sleep) RF: 0 Follow up/Referrals: Jemma Mena MD [Physician] - (7-10 days for postoperative visit) Diet/Activity/Treatments Diet: Diet as Tolerated and Regular Activity: -weightbearing as tolerated with front wheel walker -maintain posterior hip precautions x6 weeks Cold/Heat Therapy: -use ice as needed for pain Other treatments: -aspirin 81 mg twice daily x6 weeks to prevent blood clots -Tylenol 500 mg 1 pill plus ibuprofen 400 mg 1 pill every 4 hours as needed for pain. Add oxycodone 5 mg 1 tab every 4 hours for breakthrough moderate to severe pain Skin/Wound/Dressing Care Report to your healthcare provider any signs of infection, such as:: chills, fever, night sweats, unusual drainage and unusual redness Dressing: -keep dressing in place until postoperative visit -okay to shower with dressing in place -call the office if dressing becomes wet, soiled, saturated Visit Report/Discharge Packet Instructions: DI for Hip Replacement Stand Alone Forms: Surgery Discharge Quality VTE Deep Vein Thrombosis/Pulmonary Embolism Present on Admission: No
[2021-07-02 08:18] LABS: COVID19 -Nasal RAPID Negative (Negative)
[2021-07-02] MEDS: ACETAMINOPHEN 325 MG TABLET 650 MG PO ×2 (09:01→14:29)
[2021-07-02] MEDS: AMLODIPINE 5 MG TABLET 10 MG PO (09:02)
[2021-07-02] MEDS: MULTIVITAMIN 1 TABLET 1 TAB PO (09:02)
[2021-07-02] MEDS: TAMSULOSIN 0.4 MG CAPSULE PO (09:02)
[2021-07-02] MEDS: polyethylene glycoL 3350 17 GM POWD.PACK PO (09:02)
[2021-07-02] MEDS: METOPROLOL ER 50 MG TABLET PO (09:02)
[2021-07-02] MEDS: DOCUSATE 100 MG CAPSULE PO (09:02)
[2021-07-02] MEDS: FOLIC ACID 1 MG TABLET PO (09:02)
[2021-07-02] MEDS: SENNOSIDES 8.6 MG TABLET 17.2 MG PO (09:02)
[2021-07-02] MEDS: ASPIRIN EC 81 MG TABLET PO (09:02)
--- NOTE | 2021-07-02 09:11 | CM.DPC ---
Addendum entered by Julia Vo R.N. 07/02/21 15:09: Updated Gerson Terrell that patient will be going to the [facility]. He indicated that after the two day stay, he will be evaluated by the agency development manager for some other options, since he has been on the housing waiting list for a while. Called [facility] hawkins and arranged his warehouse picker time for 1545 at the ER entrance. Updated the pm nurse, and gave her the taxi voucher. Addendum entered by Julia Vo R.N. 07/02/21 14:42: Attempted to have patient call phone number for motel voucher, and it was a message. Left a message on patient's behalf. Have attempted to get in touch with Daniela at [facility]. She just called, and stated that [facility]. She had attempted to call him a couple of times. Let patient know, and Dr. Cota as well. Reminded patient per Daniela, no drugs or alcohol allowed at the motel. Updated nurse, Beverley. Will call and set up warehouse picker for approximately 1530, if possible. Addendum entered by Jluia Vo R.N. 07/02/21 11:31: Called [facility] Unit Operator about to inquire about Medicaid application. Let them know that application was sent Friday. They have not yet processed form yet. Let her know that this is for [employer] care. Stated, sometimes it takes some time to process application. Confirmed that Medicaid yoana was sent Friday, 06/29. Their recent notes are from Jenni Anglin prior to he Medicaid application being sent, that he withdrew application. Addendum entered by Julia Vo R.N. 07/02/21 11:23: Checked in with patient, he has his phone next him, indicated, he has not yet heard back from Daniela. His friend, Aric, is in his room. He indicated that if patient goes to a motel today, he can transport him. His concern is having him go back to his car, but let him know that there are no other current options, and [employer] care application has been started. Will call [facility] to follow up with Medicaid situation. Original Note: DCP Cont: Had Imelda Joe, PAC, write discharge orders for home. Patient is ambulating independently in his room. Called Daniela at [facility]. Was able to get in touch with her. She is working on calling some of the motels in the area for availability. She also indicated that the stay could possibly be for only 3 days. Let her know that care management has not been able to get any facilities in the area to accept patient, but did submit a Medicaid application, and a [employer] bilingual case manager will be assigned. At this time, motel is the only option. Daniela indicated that she will also call patient in his room to discuss. Spoke to patient and updated him. Placed his phone near him so he could receive call. He indicated, He has stayed in motels before. Did let Daniela know that patient came her due to a ground level fall that occurred at a store, and that his car is his home. P: Patient is supposed to be discharged to a motel today. Daniela from [facility] will call this bilingual case manager back with details. He most likely will need a taxi voucher since he is not yet established with Medicaid, but will ask him if he has any funds for a taxi. Julia Vo RN/Two Needle Machine Operator
--- NOTE | 2021-07-02 09:27 | PC.NURSE ---
Addendum entered by Beverley Santo R.N. 07/02/21 15:51: Patient given voucher for taxi, given discharge instructions regarding medication and f/u appointments, hip precautions. Patient needs reinforcement for hip precautions. Patient discharged via wheelchair Original Note: Patient OOB to use the restroom, encouraged to use hip precautions. Chair alarm placed back on. Voiding without complications, reports last BM was 06/30, BT active, abdomen soft, non tender, denies N/V. L hip dressing CDI. Patient using FWW during transfer without complication. Denies pain at this time, VSS. Refusing SCD's. Call light in reach. Denies further needs at this time.
--- NOTE | 2021-07-02 11:58 | PT.IPTN ---
Current Diagnoses Fracture of unspecified part of neck of left femur, initial encounter for closed fracture (06/24/21) Unspecified intracapsular fracture of left femur, initial encounter for closed fracture (06/24/21) Surgery Performed Operation Date: 06/25/21 16:45 Actual Procedures p left hip partial replacement(Left) - Jemma Mena MD Physical Therapy Treatment Note M2 PT-IP Current Condition Start: 06/26/21 17:03 Freq: NEEDED Status: Active Protocol: Document 06/26/21 12:00 DLM (Rec: 06/26/21 17:17 DLM [id number]) Physical Therapy Current Condition Current Condition Evaluation Date 06/26/21 Treatment Diagnosis left TAN, posterior, s/p fall, gait impaired Onset Date 06/24/21 Precautions Posterior Hip Precautions No Hip Flexion > 90 degrees,No Hip Internal Rotation,No Hip Adduction Weight Bearing Status Weight Bearing Status Weight Bear as Tolerated M3 PT-IP Subjective Start: 06/26/21 17:03 Freq: NEEDED Status: Active Protocol: Document 07/02/21 11:40 KARISHMA (Rec: 07/02/21 11:58 KARISHMA [id number]) Subjective Physical Therapy Visit Type Type Treatment Note Visit Start Time 11:12 Visit Stop Time 11:38 Total Visit Minutes 26 Number of [employer] SENIOR MANAGER Visits 1 Physical Therapy Visit Comments Patient Comments Pt willing to do PT and ambulate and trial stairs Therapy Pain Assessment Pain When Pain Assessed During Mobility Pain Present Pain Present Denied Pain M4 PT-IP Mobility and Gait Start: 06/26/21 17:03 Freq: NEEDED Status: Active Protocol: Document 07/02/21 11:40 KARISHMA (Rec: 07/02/21 11:58 KARISHMA [id number]) PT-Transfer Assessment Sit to and From Stand Sit to and from Stand Contact Guard Assistance,1 Person Assistance,Use of Upper Extremities Equipment Transfer Assistive Device Gait Belt,Front Wheeled Walker Orthotic/Prosthetic Devices or Brace: No Transfers Transfer Destination Toilet Transfer Technique Stand Step Pivot Transfer Ability Level of Assist Standby Assistance,Use of Upper Extremities Comments Mobility Comments Pt in chair with friend in room. Pt transfered SBA and cues for extending leg for standing to avoid flexion past 90 degrees. Pt stood and ambulated to toilet and stood to void. Ambulated in hallway ~120' with FWW requiring cues to avoid internal rotation of LLE during turning maneuvers. Pt then ambulated back to room and sat in chair again, disregarding hip precautions. [employer] SENIOR MANAGER aquired wheelchair and pt was wheeled to stairs. Pt stood from neediing cues for hip precaution to avoid 90 degree flexion of LLE hip. Pt then used B rails to climb stairs in step-to pattern. Repeated stair climbing again. He was able to safely navigate stairs SBA. Pt then returned to room and returned to chair ignoring hip precautions. Pt was left in room with friend and all needs within reach. Gait Assessment Gait Gait Assistance Required: Contact Guard Assist Distance (Feet) 120 Able to Maintain Weight Bearing Status Yes During Gait Assistive Devices Assistive Device Gait Belt,Front Wheeled Walker Gait Deviations General Gait Pattern Antalgic,Decreased Stride Length,Decreased Feet Clearance,Step-to Gait,Wide Based Gait Factors Limiting Gait Function Factors Limiting Gait Function Decreased Activity Tolerance, Decreased Strength,Difficulty Following Directions, Incoordination,Limited Range of Motion,Pain,Poor Balance, Poor Safety Awareness Comments Gait Comments see mobility section Stair Climbing Assessment Evaluation Level of Assist On Stairs Standby Assistance Devices Stair Climbing Assistive Devices Left Railing,Right Railing Technique/Endurance Stair Climbing Direction Ascend and Descend Stair Climbing Technique Step to Step Number of Steps Climbed 3 Stair Climbing Set # Repetitions (reps) 2 Comments Stair Climbing Comments Pt descends stairs with somewhat sideways turn to the right M5 PT-IP Objective Assessments Start: 06/26/21 17:03 Freq: NEEDED Status: Active Protocol: Document 06/26/21 12:00 [facility] (Rec: 06/26/21 17:17 [facility] [id number]) Orientation Orientation/Cognition Level of Alertness Alert Orientation Name,Birthday,Place,Situation Safety Awareness Decreased Safety Awareness Memory Description Short Term Impaired Comments he is pleasant and cooperative , drooling noted Gross Range of Motion Upper Extremity ROM Assessment Within Functional Limits Lower Extremity ROM Assessment Left Impaired Impairments left limited by TAN precautions and pain Strength Upper Extremity Strength Assessment Within Functional Limits Lower Extremity Strength Assessment Left Impaired Hip needs assist to move LE in bed , standing flexion 2+/5 Knee ext 2+/5 with thigh pain Ankle DF 4/5 Comments Strength Comments left hip limited by post TAN precautions Coordination Assessment Gross Coordination Gross Coordination WNL Sensation Assessment Sensation Gross Sensation WNL Comments Sensation Comments chronic LE edema, no numbness reported by pt Muscle Tone Muscle Tone WNL Yes M6 PT-IP Treatment Start: 06/26/21 17:03 Freq: NEEDED Status: Active Protocol: Document 07/02/21 11:40 KARISHMA (Rec: 07/02/21 11:58 KARISHMA [id number]) Physical Therapy Treatment Education Education Provided Precautions,Safety M7 PT-IP Assessment and Plan Start: 06/26/21 17:03 Freq: NEEDED Status: Active Protocol: Document 07/02/21 11:40 KARISHMA (Rec: 07/02/21 11:58 LJ [id number]) PT Summary Assessment and Plan Potential Rehabilitation Potential Good Status of Condition at Evaluation Evolving Summary Impairments Pain,ROM,Strength,Balance, Cognition,Bed Mobility, Transfers,Gait,Activity Tolerance Progress Towards Goals Progressing Toward Goals Assessment Summary Pt reports he has no pain with mobility. Feels he can return to his car without difficulty but unable to maintain precautions with mobility and ambulation. Somewhat impulsive with transfers and ambulation . He needs cues to maintain precautions and may be at risk for further injury if he does not do so. Pt left seated in chair and reminded of need to adhere to hip precautions. His friend remained in room and all needs within reach Goals Bed Mobility Goal Independent Transfer Goal Independent,Front Wheeled Walker Gait Goal Independent,Front Wheel Walker Gait Distance 150 feet Other Goals *Demonstrate safe use of posterior hip precautions 06/30/21 Updated PT goals Days to Meet Goals 10 Frequency of Treatment Frequency Of Treatment Twice a Day Treatment Plan Physical Therapy Treatment Plan Bed Mobility Training,Transfer Training,Gait Training, Therapeutic Exercise,Balance Retraining,Post Op Education, Discharge Planning,Hot or Cold Pack,Neuromuscular Re-ed Precautions Posterior Hip Precautions No Hip Flexion > 90 degrees,No Hip Internal Rotation,No Hip Adduction Other Precautions pt recalls 2/3 precautions but does not adhere to them Recommendations To Nursing Amount of Assist Needed 1 Person Assist Discharge Recommendations PT Discharge Recommendations SNF Rehab Equipment Needed for Home Before FWW Discharge Transportation Needs at Discharge Wheelchair/Cabulance
--- NOTE | 2021-07-02 14:06 | OT.IPNOTE ---
Attempted to see pt for OT services. Pt declined all activity at this time stating that he is depressed. Notified RN. Pt left sitting in chair as found.
--- NOTE | 2021-07-02 15:35 | PT-IP ANOTE ---
Pt preparing for discharge. PT dispensed FWW for personal use as ordered by physician. No further treatment was provided. No charge.
--- NOTE | 2021-07-02 18:05 | PM.PN.1 ---
Subjective Subjective Date Patient Seen: 07/02/21 Interval history: ?70-year-old male homeless status, history of hypertension, chronic atrial fibrillation, not anticoagulated status post left hip unipolar for left femoral neck fracture awaiting placement.? He denies significant hip pain and has no complaints. Ortho discharge patient this morning. He has motel voucher for next few days. Exam Vital Signs (past 8 hours): - 07/02/21 11:40 07/02/21 11:58 07/02/21 13:04 Temperature 97.6 F Pulse Rate 84 Respiratory Rate 16 Blood Pressure 125/81 125/81 Pulse Oximetry 97 99 Oxygen Delivery Method Room Air Oxygen Flow Rate 0 Narrative Exam Narrative: General:? Alert, pleasant and sitting in chair appearing comfortable Lungs: Breathing nonlabored Extremities:? No distal edema, left hip postop dressing clean and dry Objective Labs Result Diagrams: 06/27/21 04:15 06/25/21 02:55 Labs: Laboratory Results - last 24 hr 07/02/21 07:56 SARS-CoV-2 (PCR) Negative [facility] Medical History Cellulitis of left leg Congestive heart failure Elevated troponin Essential hypertension Hypertension Surgical History No pertinent past surgical history Family History Mother Hypertension Sister Hypertension Social History household members: none housing: other occupational status: unemployed Smoking Status: Current every day smoker alcohol intake: current additional social history: Lives in a hotel Assessment & Plan Assessment & Plan narrative: 1. Left hip fracture status post unipolar prosthesis -continue aspirin b.i.d. x6 weeks for DVT prophylaxis -medically stable to discharge 2. Hypertension -blood pressure and control improved on metoprolol and amlodipine -will continue at discharge 3. Atrial fibrillation -chronic atrial fibrillation -patient is not anticoagulated, but will continue aspirin -rate controlled on metoprolol 4. Chronic diastolic heart failure -asymptomatic at this time Time Spent With Patient Critical Care time: I spent a total of [] minutes of critical care time on this patient's care today; this time is exclusive of procedural time. Quality VTE Deep Vein Thrombosis/Pulmonary Embolism Present on Admission: No
== END 2021-07-02 15:55 | disposition home or self-care (01) | DRG 522 ==
LOC: ED 21:56 → AC 22:11
PROVIDERS: Orthopaedic Surgery; Admitting Provider Nurse Practitioner Family; Emergency Provider Emergency Medicine; Referring Provider Emergency Medicine; Visit Provider Nurse Practitioner Family
PROC: 0SRS0JZ Replacement of Left Hip Joint, Femoral Surface with Synthetic Substitute, Open Approach (ICD-10-PCS; CPT 27125; principal; 2021-06-25 16:45)
DX: S72.012A Unspecified intracapsular fracture of left femur, initial encounter for closed fracture (principal); I48.20 Chronic atrial fibrillation, unspecified; L03.115 Cellulitis of right lower limb; I50.32 Chronic diastolic (congestive) heart failure; I11.0 Hypertensive heart disease with heart failure; F17.200 Nicotine dependence, unspecified, uncomplicated; R31.9 Hematuria, unspecified; W18.30XA Fall on same level, unspecified, initial encounter; Z20.822 Contact with and (suspected) exposure to COVID-19; Z66 Do not resuscitate; Z91.14 Patient's other noncompliance with medication regimen
CPT/HCPCS: 36415; 70450; 71045; 72170; 73502; 80048; 80305; 80320; 81001; 81003; 82550; 82962; 83036; 83735; 83880; 84145; 84484; 85007; 85025; 85610; 85730; 87040; 87086; 87635; 87797; 93005; 94760; 96374; 97110; 97116; 97162; 97166; 97530; 97535; 99285; C1776; C9803; C9290; J0171; J0690; J1100; J1170; J1200; J1815; J2270; J2405; J2704

== ENCOUNTER 2021-07-13 13:44 | Emergency (ER) | payer MEDICARE, SELFPAY ==
[2021-06-24 22:18] VITALS: BMI 29.3
[2021-07-13 14:25] VITALS: BP 151/78; PULSE 108; RESP 22; TEMP 36.1; O2SAT 98; BMI 29.0
--- NOTE | 2021-07-13 14:30 | DI.RAD.S_ITS ---
PROCEDURE: XR HIP W PEL IF DONE LT 2V INDICATIONS: PAIN, RECENT REPLACEMENT TECHNIQUE: AP pelvis and lateral view of the left hip acquired. [facility], 20:18. FINDINGS: Bones: Patient is status post left hip arthroplasty, with hardware components in expected positions. The hip joint appears congruent. The visualized bony structures appear intact. Soft tissues: No suspicious soft tissue densities. IMPRESSION: No significant abnormality. Dictated by: Guillermo Krishna M.D. on 07/13/2021 at 14:44 Approved by: Guillermo Krishna M.D. on 07/13/2021 at 14:51
[2021-07-13 17:38] VITALS: BP 157/99; PULSE 56; O2SAT 99
--- NOTE | 2021-07-13 19:45 | ED_ITS ---
HPI - Extremity Problem General Chief complaint: Extremity Problem,Nontraumatic Stated complaint: Not Feeling Right Time Seen by Provider: 07/13/21 19:17 Source: patient Mode of arrival: Wheelchair Limitations: no limitations History of Present Illness HPI Narrative: 70-year-old male with recentthin left hip fracture and repair, he initially was seen on June 25 and was discharged home on July 02. Looks as though they were trying to get him into an SNF, but were unsuccessful. He is homeless which became a challenge. He has been staying in a motel which supposedly he got kicked out of today. He says that since staying in the motel his left hip, has become more painful. He has not been taking any medications for anything including for his high blood pressure, diastolic heart failure, atrial fibrillation or other chronic illnesses. He says when he has it he does take ibuprofen for his pain but he has not had. He denies any fever or chills. He has no numbness tingling or weakness. He says that he is ambulatory with a walker and he left his walker in the car. He just says he has had increasing pain. The site itself is not erythematous. He is currently afebrile. Related Data Home Medications Medication Instructions Recorded Confirmed melatonin 10 mg tablet 10 mg PO BEDTIME PRN 06/24/21 06/24/21 Previous Rx's Medication Instructions Recorded amlodipine 10 mg tablet 10 mg PO DAILY #30 tab 07/02/21 aspirin 81 mg tablet,delayed 81 mg PO BID 42 Days #84 tab 07/02/21 release ibuprofen 400 mg tablet 400 mg PO Q6H PRN #30 tab 07/02/21 metoprolol succinate 100 mg 100 mg PO DAILY #30 tab 07/02/21 tablet,extended release 24 hr sennosides 8.6 mg tablet (senna) 17.2 mg PO BID #60 tab 07/02/21 acetaminophen 325 mg capsule 650 mg PO Q6H PRN #30 cap 07/13/21 Allergies Allergy/AdvReac Type Severity Reaction Status Date / Time No Known Drug Allergies Allergy Verified 07/13/21 14:25 Review of Systems Review of Systems Narrative: GENERAL: Denies chills, fatigue, malaise, fever, sweats, travel HEENT: Denies sinus pain, ear pain, sore throat, difficulty swallowing, neck pain RESPIRATORY: Denies dyspnea, cough, wheezing, hemoptysis, sputum. CARDIOVASCULAR: Denies chest pain, palpitations, orthopnea, edema GASTROINTESTINAL: Denies nausea, vomiting, abdominal pain, diarrhea, constipation, melena. : Denies dysuria, frequency, incontinence, hematuria, urinary retention, flank pain. MUSCULOSKELETAL: See HPI SKIN: No rash, no erythema, no pruritus NEUROLOGIC: Denies weakness, dizziness, headache, numbness, change in speech, confusion PSYCHIATRIC: No concerning psychosocial issues. 12 point review of systems is negative except for those stated above and HPI Patient History Medical History Cellulitis of left leg Congestive heart failure Elevated troponin Essential hypertension Hypertension Surgical History No pertinent past surgical history Family History Mother Hypertension Sister Hypertension Social History household members: none housing: other occupational status: unemployed Smoking Status: Current every day smoker alcohol intake: current additional social history: Lives in a hotel Smoking Status: Current every day smoker alcohol intake frequency: other Substance Use Type: does not use Exam Initial Vital Signs Initial Vital Signs: Vital Signs Temperature 97.0 F L 07/13/21 14:25 Pulse Rate 108 H 07/13/21 14:25 Respiratory Rate 22 07/13/21 14:25 Blood Pressure 151/78 H 07/13/21 14:25 Pulse Oximetry 98 07/13/21 14:25 GENERAL: Alert 70-year-old male disheveled HEENT: Head atraumatic,EOMI, pupils reactive, face symmetric, [moist] mucous membranes CARDIOVASCULAR: Regular rate and rhythm without murmurs, rubs or gallops. Not irregular. RESPIRATORY: Breath sounds equal bilaterally, no wheezes rales or rhonchi. ABDOMEN: Soft, nontender. Normoactive bowel sounds all 4 quadrants. No guarding or rebound. EXTREMITIES: Normal range of motion, no clubbing or edema. Neurovascularly intact. Incision site on left hip is clean and dry non erythematous remains intact no significant fluid NEUROLOGICAL: Alert and oriented x4. SKIN: Warm, dry, no laceration, no petechiae, no rashes or lesions. Course Orders Ordered: ED Orders 07/13/21 14:30 XR hip w pel if done LT 2V Stat Discontinued Medications Ketorolac Tromethamine (Ketorolac 30 Mg/Ml Vial) 30 mg IM NOW ONE Stop: 07/13/21 19:55 Last Admin: 07/13/21 20:00 Dose: 30 mg Documented by: MICHELE Vital Signs Vital signs: Vital Signs - 8 hr 07/13/21 14:25 07/13/21 17:38 07/13/21 20:46 Temperature 97.0 F L Pulse Rate 108 H 56 L 70 Respiratory Rate 22 20 Blood Pressure 151/78 H 157/99 H 156/89 H Pulse Oximetry 98 99 98 [facility] - Extremity (Nontraumatic) Imaging Data Extremity x-ray #1: Radiologist's Impression: PROCEDURE:? XR HIP W PEL IF DONE LT 2V ? INDICATIONS:? PAIN, RECENT REPLACEMENT ? TECHNIQUE:? AP pelvis and lateral view of the left hip acquired.? ? COMPARISON:? [facility], , XR HIP W PEL IF DONE LT 2V, 06/25/2021, 20:18. ? FINDINGS:? ? Bones:? Patient is status post left hip arthroplasty, with hardware components in expected positions.? The hip joint appears congruent.? The visualized bony structures appear intact.? ? Soft tissues:? No suspicious soft tissue densities.? ? ? IMPRESSION:? No significant abnormality. ? Dictated by: Guillermo Krishna M.D. on 07/13/2021 at 14:44 ? ? [facility] Narrative Medical decision making narrative: Patient's incision and left hip overall appear well. No significant swelling no sign of infection. X-ray is negative. He is ambulatory with a walker. He received a sandwich and milk. At this time I do not believe patient needs any further workup. He has good peripheral pulses that are regular. No sign of atrial fibrillation with RVR. Patient seems to be at his new baseline. He really would have benefited from a sniff, he states he was offered a sniff but does not remember and possibly even refused. I recommend that he talk with Orthopedics in regards to outpatient physical therapy Discharge Plan Departure Patient Disposition: Home Clinical Impression: Pain due to left hip joint prosthesis Qualifiers: Encounter type: initial encounter Qualified Code(s): T84.84XA - Pain due to internal orthopedic prosthetic devices, implants and grafts, initial encounter Instructions: DI for Hip Pain Activity Restrictions/Additional Instructions: *You have been diagnosed with left hip pain *What to do: At this time please continue walking as much as possible, you will need physical therapy. Please talk with primary care provider for orthopedics in regards to getting this set if you have not already *Continue to take medications as directed Tylenol 650 mg every 4-6 hours if needed for pain *Follow up with your primary care provider in 2-3 days *Return to ER if you should have increasing redness, increasing pain, fever, weakness or any new, worsening or concerning symptoms Prescriptions: New acetaminophen 325 mg capsule 650 mg PO Q6H PRN (Reason: pain) Qty: 30 RF: 0 No Action melatonin 10 mg Tablet 10 mg PO BEDTIME PRN (Reason: Sleep) RF: 0 ibuprofen 400 mg tablet 400 mg PO Q6H PRN (Reason: postop pain) Qty: 30 RF: 0 sennosides [senna] 8.6 mg Tablet 17.2 mg PO BID Qty: 60 RF: 0 aspirin 81 mg Tablet,Delayed Release (Dr/Ec) 81 mg PO BID 42 Days Qty: 84 RF: 0 amlodipine 10 mg tablet 10 mg PO DAILY Qty: 30 RF: 0 metoprolol succinate 100 mg tablet extended release 24 hr 100 mg PO DAILY Qty: 30 RF: 0 Referrals: Jemma Mena MD [Physician] -
[2021-07-13] MEDS: KETOROLAC 30 MG/ML VIAL IM (20:00)
[2021-07-13 20:46] VITALS: BP 156/89; PULSE 70; RESP 20; O2SAT 98
== END 2021-07-13 20:46 | disposition home or self-care (01) ==
PROVIDERS: Emergency Provider Emergency Medicine
DX: T84.84XA Pain due to internal orthopedic prosthetic devices, implants and grafts, initial encounter (principal); M25.552 Pain in left hip
CPT/HCPCS: 73502; 96372; 99283; J1885

== ENCOUNTER 2021-07-21 17:50 | Emergency (ER) | payer MEDICARE, SELFPAY ==
[2021-06-24 22:18] VITALS: BMI 29.3
[2021-07-21 18:00] VITALS: PULSE 62; RESP 20; TEMP 37.3; O2SAT 97; BMI 29.0
--- NOTE | 2021-07-21 18:48 | ED.EXTPRO ---
HPI - Extremity Problem General Chief complaint: Extremity Problem,Nontraumatic Stated complaint: continuation of where i broke my hip Time Seen by Provider: 07/21/21 17:54 Source: patient Mode of arrival: Wheelchair Limitations: no limitations History of Present Illness HPI Narrative: Patient is a 70-year-old male. He is homeless. Lives in his car. Here because he is having left hip discomfort. Three weeks ago he fell and broke his hip. Was subsequently discharged from the hospital. Since that time he has been here in the emergency department for left hip pain. He has not followed up with Orthopedics since he was discharged. He has been sitting in his car most of the time since he was discharged. He has not fallen. He describes the pain in the front of his left leg. Has been taken ibuprofen for his discomfort. Related Data Home Medications Medication Instructions Recorded Confirmed melatonin 10 mg tablet 10 mg PO BEDTIME PRN 06/24/21 06/24/21 Previous Rx's Medication Instructions Recorded amlodipine 10 mg tablet 10 mg PO DAILY #30 tab 07/02/21 aspirin 81 mg tablet,delayed 81 mg PO BID 42 Days #84 tab 07/02/21 release ibuprofen 400 mg tablet 400 mg PO Q6H PRN #30 tab 07/02/21 metoprolol succinate 100 mg 100 mg PO DAILY #30 tab 07/02/21 tablet,extended release 24 hr sennosides 8.6 mg tablet (senna) 17.2 mg PO BID #60 tab 07/02/21 acetaminophen 325 mg capsule 650 mg PO Q6H PRN #30 cap 07/13/21 Allergies Allergy/AdvReac Type Severity Reaction Status Date / Time No Known Drug Allergies Allergy Verified 07/21/21 18:34 Review of Systems Constitutional Constitutional: Denies fever(s) Musculoskeletal Musculoskeletal: Reports system reviewed and no additional complaints, except as documented Integumentary/Breasts Skin/Breast: Reports system reviewed and no additional complaints, except as documented Hematologic/Lymphatic On Anticoagulants: No Patient History Medical History Cellulitis of left leg Congestive heart failure Elevated troponin Essential hypertension Hypertension Surgical History No pertinent past surgical history Family History Mother Hypertension Sister Hypertension Social History household members: none housing: other occupational status: unemployed Smoking Status: Current every day smoker alcohol intake: current additional social history: Lives in a hotel Smoking Status: Current every day smoker alcohol intake frequency: other Substance Use Type: does not use Exam Initial Vital Signs Initial Vital Signs: Vital Signs Temperature 99.2 F 07/21/21 18:00 Pulse Rate 62 07/21/21 18:00 Respiratory Rate 20 07/21/21 18:00 Pulse Oximetry 97 07/21/21 18:00 HENMT Head: normal to inspection and normocephalic Resp Effort & Inspection: normal respiratory effort GI Inspection: normal to inspection Palpation: soft Skin Other: Well-healed surgical scar left hip without signs of infection Extrem Other: Patient can flex and extend at the left hip and left knee. Describes tenderness to palpation along the anterior lateral aspect of the proximal left hip Psych Appearance: grossly normal and well kempt Course Orders Ordered: ED Orders 07/21/21 20:48 Urinalysis and Microscopic Stat Urine Culture Stat Discontinued Medications Cefazolin Sodium (Cephalexin 250 Mg Prepack) 1 bottle MISC SEEINSTR ONE Stop: 07/21/21 22:54 Ceftriaxone Sodium 2,000 mg/ (Sodium Chloride) 100 mls @ 200 mls/hr IV NOW ONE Stop: 07/21/21 21:51 Last Infusion: 07/21/21 22:49 Dose: 0 mls/hr Documented by: Infusion: 07/21/21 22:18 Dose: 200 mls/hr Documented by: Infusion: 07/21/21 22:00 Dose: 0 mls/hr Documented by: Admin: 07/21/21 21:59 Dose: 200 mls/hr Documented by: ATAROSAURAOR Vital Signs Vital signs: Vital Signs - 8 hr 07/21/21 18:00 07/21/21 19:00 Temperature 99.2 F Pulse Rate 62 73 Respiratory Rate 20 Blood Pressure 154/93 H Pulse Oximetry 97 98 MDM - Extremity (Nontraumatic) Lab Data Labs: Lab Results 07/21/21 Range/Units 20:48 Urine Color Yellow Urine Appearance Cloudy Urine pH 6.5 (4.5-8.0) Ur Specific [place] 1.015 (1.000-1.035) Urine Protein 1+ H (Negative) Urine Glucose (UA) Trace H (Negative) g/dL Urine Ketones Negative (NEGATIVE) Urine Occult Blood 3+ H (Negative) Urine Nitrate Negative (Negative) Urine Bilirubin Negative (NEGATIVE) Urine Urobilinogen 0.2 (0.2) E.U./dL Ur Leukocyte Esterase 1+ H (NEGATIVE) Urine RBC 1-5/hpf D (0-5/HPF) Urine WBC 30-100/hpf H (0-5/HPF) Urine Bacteria Many (>30) H (None) Ur Culture Indicated? Specimen cultured Urine Dip Bedside Urine Glucose Negative Bedside Urine Bilirubin - Negative Bedside Urine Ketone - Negative Urine Specific [place] 1.020 Bedside Urine Occult Blood ++ Bedside Urine pH 6.0 Bedside Urine Protein +/- 15 Bedside Urine Urobilinogen - Negative Bedside Urine Nitrite - Negative Bedside Urine Leukocytes + 70 Esterase MDM Narrative Medical decision making narrative: I truly believe that his left hip discomfort is because he has not been walking around or seen rehab since his hip surgery. He points to the left anterior portion of his hip is where his discomfort is. I do not feel the need to re-x-ray his hip. Informed him that he does need to be up and walking around. He does have a walker in his car. His social situation is unfortunate. He is homeless. Lives in his car. Has not followed up with Orthopedics. He was provided there number once again in order to schedule a follow-up appointment. He also had problems urinating here in the ER. A bladder scan revealed greater than 500 cc of urine in his bladder. A Arredonod catheter was placed. A urinalysis shows findings consistent with a urinary tract infection. Patient does not have money in order to purchase the antibiotics. He was given 2 g of Rocephin IV here in the ER. We have a prepack of Keflex and unfortunately it is only 2 days worth of this medicine but I feel that it is better than not treating him at all. He was also instructed that he needs to have this catheter removed in approximately 1 week. He was given instructions to follow-up with the Urology however I feel that this is unlikely going to happen and he was instructed to return to the emergency department if needed to have it removed. He expressed understanding and agreement. Discharge Plan Departure Patient Disposition: Home Clinical Impression: Left hip pain, Acute urinary retention, Urinary tract infection Instructions: How to Care for Your Arredondo Catheter -- Male Activity Restrictions/Additional Instructions: It is important that you get up and walk around. This is important for rehab of your left hip. I suspect that this is going to improve the discomfort that you are having. It is important that you follow-up with orthopedics as well. Their office phone number was provided below. You were retaining urine today. Arredondo catheter was placed. This needs to be removed in approximately 1 week. You can contact the Urology Department here at the hospital for a follow-up or you can return to the emergency department for this. We do need to place you on antibiotics. You were given a prepack of antibiotics. Please start this on Friday07/22/21 in take it as directed. You can contact the health solar resource assessor here at the [facility] at [phone]. This individual can help you establish a primary doctor. Prescriptions: No Action melatonin 10 mg Tablet 10 mg PO BEDTIME PRN (Reason: Sleep) RF: 0 ibuprofen 400 mg tablet 400 mg PO Q6H PRN (Reason: postop pain) Qty: 30 RF: 0 sennosides [senna] 8.6 mg Tablet 17.2 mg PO BID Qty: 60 RF: 0 aspirin 81 mg Tablet,Delayed Release (Dr/Ec) 81 mg PO BID 42 Days Qty: 84 RF: 0 amlodipine 10 mg tablet 10 mg PO DAILY Qty: 30 RF: 0 metoprolol succinate 100 mg tablet extended release 24 hr 100 mg PO DAILY Qty: 30 RF: 0 acetaminophen 325 mg capsule 650 mg PO Q6H PRN (Reason: pain) Qty: 30 RF: 0 Referrals: Lesia Merritt MD [Physician] - Jemma Mena MD [Physician] -
[2021-07-21 19:00] VITALS: BP 154/93; PULSE 73; O2SAT 98
[2021-07-21 21:13] LABS: Appearance Urine UA CLOUDY; Bilirubin Urine UA NEGATIVE (NEGATIVE); Color Urine UA YELLOW; Glucose Urine UA TRACE g/dL (Negative); Ketones Urine UA NEGATIVE (NEGATIVE); Leukocyte Esterase Urine UA 1+ (NEGATIVE); Nitrite Urine UA NEGATIVE (Negative); Occult Blood Urine UA 3+ (Negative); Protein Urine UA 1+ (Negative); Specific Gravity Urine UA 1.015 (1.000-1.035); Urobilinogen Urine UA 0.2 E.U./dL (0.2); pH Urine UA 6.5 (4.5-8.0)
[2021-07-21 21:39] LABS: Bacteria Urine Many (>30); Culture Indicated Urine Specimen Cultured; RBC Urine 1-5/HPF (0-5/HPF); WBC Urine 30-100/HPF (0-5/HPF)
[2021-07-21] MEDS: cefTRIAXone 2,000 MG in SODIUM CHLORIDE 0.9% 100 ML 200 ML IV (21:59)
[2021-07-21] MEDS: cephALEXin 250 MG PREPACK 1 BOTTLE MISC (23:09)
[2021-07-21 23:11] VITALS: BP 150/99; PULSE 85; RESP 17; TEMP 35.5; O2SAT 99
== END 2021-07-21 23:25 | disposition home or self-care (01) ==
PROVIDERS: Emergency Provider Emergency Medicine
DX: M25.552 Pain in left hip (principal); N39.0 Urinary tract infection, site not specified; R33.9 Retention of urine, unspecified
CPT/HCPCS: 51798; 81001; 81003; 87077; 87086; 87186; 96365; 99284; J0696

== ENCOUNTER 2021-07-22 17:44 | Emergency (ER) | payer MEDICARE, SELFPAY ==
[2021-06-24 22:18] VITALS: BMI 29.3
[2021-07-22] VITALS (12 sets, daily range): BP systolic 145–165; BP diastolic 77–94; PULSE 70–108; RESP 13–18; TEMP 36.5; O2SAT 96–98; BMI 30.3
--- NOTE | 2021-07-22 18:48 | PC.NURSE ---
Pt brought in from car, appears incontinent of stool and urine. taken into ED bathroom and given a full shower, hair wash, and clothing change. Arredondo cath in place with dark tea colored urine. having pain in bilateral feet with R > L. Incision on L hip appears to be healing well. Skin on buttocks appears intact. HR 80-120 Afib.
--- NOTE | 2021-07-22 18:53 | ED.RECABL ---
HPI - Recheck/Abnormal Lab/Rx General Chief Complaint: Recheck/Abnormal Lab/Rx Stated Complaint: URINATION ISSUE Time Seen by Provider: 07/22/21 18:03 Source: patient Mode of arrival: Ambulatory Limitations: no limitations History of Present Illness HPI narrative: Patient is a 70-year-old male. Is homeless. Does live in his car. I evaluated the patient yesterday evening for left hip pain. He recently had a left hip fracture and resultant surgery. Last evening he was found to be retaining urine with greater than 500 cc of urine in his bladder. He also had a urinary tract infection. He was treated with Rocephin. Sent home with a prepack of antibiotics. He stated that he took his 2 doses of antibiotics today as directed. Somewhat unsure as to why he is here in the emergency department this evening. He states that his left hip pain is no longer there. He has no chest pain. No shortness of breath. No abdominal pain. He did defecate on himself. Unsure whether not he is incontinent of stool or if he just did not make it to the bathroom or did not have a bathroom to go to. He does have a Arredondo catheter in place that was placed yesterday. Appears well. It is draining dark colored urine. He states that he has not had much to drink today. He did take his pills today with water that he got for free from [employer]. Related Data Home Medications Medication Instructions Recorded Confirmed melatonin 10 mg tablet 10 mg PO BEDTIME PRN 06/24/21 06/24/21 Previous Rx's Medication Instructions Recorded amlodipine 10 mg tablet 10 mg PO DAILY #30 tab 07/02/21 aspirin 81 mg tablet,delayed 81 mg PO BID 42 Days #84 tab 07/02/21 release ibuprofen 400 mg tablet 400 mg PO Q6H PRN #30 tab 07/02/21 metoprolol succinate 100 mg 100 mg PO DAILY #30 tab 07/02/21 tablet,extended release 24 hr sennosides 8.6 mg tablet (senna) 17.2 mg PO BID #60 tab 07/02/21 acetaminophen 325 mg capsule 650 mg PO Q6H PRN #30 cap 07/13/21 Allergies Allergy/AdvReac Type Severity Reaction Status Date / Time No Known Drug Allergies Allergy Verified 07/21/21 18:34 Review of Systems Constitutional Comments: Denies fevers Cardiovascular Comments: Denies chest pain or palpitations Respiratory Comments: Denies shortness of breath Gastrointestinal Comments: Denies abdominal pain, is covered in stool Genitourinary Comments: Urinary catheter in place Musculoskeletal Comments: Denies left hip pain which he was seen for last evening Integumentary/Breasts Comments: No rashes Neurologic Neurologic: Reports system reviewed and no additional complaints, except as documented Hematologic/Lymphatic Comments: Not on blood thinners Patient History Medical History Cellulitis of left leg Congestive heart failure Elevated troponin Essential hypertension Hypertension Surgical History No pertinent past surgical history Family History Mother Hypertension Sister Hypertension Social History household members: none housing: other occupational status: unemployed Smoking Status: Current every day smoker alcohol intake: current additional social history: Lives in a hotel Smoking Status: Current every day smoker alcohol intake frequency: other Substance Use Type: does not use Exam Initial Vital Signs Initial Vital Signs: Vital Signs Temperature 97.7 F 07/22/21 18:46 Pulse Rate 70 07/22/21 18:46 Respiratory Rate 16 07/22/21 18:46 Blood Pressure 147/79 H 07/22/21 18:46 Pulse Oximetry 96 07/22/21 18:46 Const General: cooperative and disheveled HENOK Head: normal to inspection and normocephalic Resp Effort & Inspection: normal respiratory effort Auscultation: clear to auscultation bilaterally Cardio Rate: tachycardic Rhythm: abnormal rhythm GI Inspection: normal to inspection Skin General: no rashes or lesions noted Neuro General: patient alert, patient awake and moves all extremities Extrem General: capillary refill normal and edema Psych Appearance: disheveled Course Orders Ordered: Discontinued Medications Amlodipine Besylate (Amlodipine 5 Mg Tablet) 10 mg PO NOW ONE Stop: 07/22/21 18:55 Last Admin: 07/22/21 19:17 Dose: 10 mg Documented by: CEM Metoprolol Succinate (Metoprolol Er 50 Mg Tablet) 100 mg PO NOW ONE Stop: 07/22/21 18:55 Last Admin: 07/22/21 19:35 Dose: 100 mg Documented by: CEM Vital Signs Vital signs: Vital Signs - 8 hr 07/22/21 23:00 07/22/21 23:30 07/23/21 00:00 Pulse Rate 95 H 91 H 91 H Respiratory Rate 16 15 18 Blood Pressure 156/94 H 145/77 H 127/72 Pulse Oximetry 98 97 96 07/23/21 00:30 07/23/21 02:30 Pulse Rate 96 H 88 Respiratory Rate 16 17 Blood Pressure 128/74 136/82 Pulse Oximetry 96 97 MDM - Recheck/Abnormal Lab/Rx MDM Narrative Medical decision making narrative: I believe that the patient arrived to the emergency department today because of his social situation. He was living in his car. He could not make it to the restroom and had soiled himself with stool. He was given a shower in food. He was in AFib with a heart rate in the 120s. He did not take his metoprolol and amlodipine so he was given a dose of these medications. This improved his heart rate. The emergency department was not a full when we had availability so I let the patient sleep in the emergency department overnight. He remained stable. Will discharge. He will continue his antibiotics. Discharge Plan Departure Patient Disposition: Home Clinical Impression: Urinary tract infection Instructions: DI for Urinary Tract Infection (UTI) Activity Restrictions/Additional Instructions: You do need to continue your antibiotics today. ED need to be seen again in approximately 1 week to have your Arredondo catheter removed. Return to the emergency department for any new or worsening symptoms Prescriptions: No Action melatonin 10 mg Tablet 10 mg PO BEDTIME PRN (Reason: Sleep) RF: 0 ibuprofen 400 mg tablet 400 mg PO Q6H PRN (Reason: postop pain) Qty: 30 RF: 0 sennosides [senna] 8.6 mg Tablet 17.2 mg PO BID Qty: 60 RF: 0 aspirin 81 mg Tablet,Delayed Release (Dr/Ec) 81 mg PO BID 42 Days Qty: 84 RF: 0 amlodipine 10 mg tablet 10 mg PO DAILY Qty: 30 RF: 0 metoprolol succinate 100 mg tablet extended release 24 hr 100 mg PO DAILY Qty: 30 RF: 0 acetaminophen 325 mg capsule 650 mg PO Q6H PRN (Reason: pain) Qty: 30 RF: 0
[2021-07-22] MEDS: AMLODIPINE 5 MG TABLET 10 MG PO (19:17)
[2021-07-22] MEDS: METOPROLOL ER 50 MG TABLET 100 MG PO (19:35)
[2021-07-23] VITALS: BP 127/72; PULSE 91; RESP 18; O2SAT 96
[2021-07-23 00:30] VITALS: BP 128/74; PULSE 96; RESP 16; O2SAT 96
[2021-07-23 02:30] VITALS: BP 136/82; PULSE 88; RESP 17; O2SAT 97
[2021-07-23 02:59] VITALS: PULSE 87; RESP 17; O2SAT 96
[2021-07-23 03:00] VITALS: BP 134/99; PULSE 88; RESP 17; O2SAT 96
[2021-07-23 06:50] VITALS: BP 153/85; PULSE 86; RESP 16; TEMP 36.4; O2SAT 96
== END 2021-07-23 07:02 | disposition home or self-care (01) ==
PROVIDERS: Emergency Provider Emergency Medicine
DX: N39.0 Urinary tract infection, site not specified (principal)
CPT/HCPCS: 99283

== ENCOUNTER 2021-07-26 18:44 | Emergency (ER) | payer MEDICARE, MEDICAID, SELFPAY ==
[2021-06-24 22:18] VITALS: BMI 29.3
[2021-07-26 19:22] VITALS: BP 151/80; PULSE 76; RESP 16; TEMP 36.4; O2SAT 95
--- NOTE | 2021-07-26 21:16 | ED_ITS ---
HPI - Extremity Injury (Lower) General Chief Complaint: Extremity Injury, Lower Stated Complaint: help out of car, hip is hurting Time Seen by Provider: 07/26/21 21:16 Source: patient Mode of arrival: Wheelchair Limitations: no limitations History of Present Illness HPI Narrative: Patient is a 70-year-old male well known to myself and facility complaining of left hip pain. He previously had left hip fracture beginning of this month. He does not have any fever or chills. He says that he has been taking his pain medication which does seem to help. He is currently homeless and living in his car. He walks with a walker. He was recently seen in the ED twice for urinary retention and UTI. He states that he finished his antibiotics which were given on the . He was treated with 1 dose of Rocephin given a prepack of keflex. At my time of evaluation he is no longer complaining of hip pain he is offered pain medication but declines at this time. He was given clean clothes but actually wants out of the scribe's because they are not warm enough. He would like to change into his jeans and like a glass of water. Related Data Home Medications Medication Instructions Recorded Confirmed melatonin 10 mg tablet 10 mg PO BEDTIME PRN 06/24/21 06/24/21 Previous Rx's Medication Instructions Recorded amlodipine 10 mg tablet 10 mg PO DAILY #30 tab 07/02/21 aspirin 81 mg tablet,delayed 81 mg PO BID 42 Days #84 tab 07/02/21 release ibuprofen 400 mg tablet 400 mg PO Q6H PRN #30 tab 07/02/21 metoprolol succinate 100 mg 100 mg PO DAILY #30 tab 07/02/21 tablet,extended release 24 hr sennosides 8.6 mg tablet (senna) 17.2 mg PO BID #60 tab 07/02/21 acetaminophen 325 mg capsule 650 mg PO Q6H PRN #30 cap 07/13/21 Allergies Allergy/AdvReac Type Severity Reaction Status Date / Time No Known Drug Allergies Allergy Verified 07/21/21 18:34 Review of Systems Review of Systems Narrative: GENERAL: Denies chills, fatigue, malaise, fever, sweats, travel HEENT: Denies sinus pain, ear pain, sore throat, difficulty swallowing, neck pain RESPIRATORY: Denies dyspnea, cough, wheezing, hemoptysis, sputum. CARDIOVASCULAR: Denies chest pain, palpitations, orthopnea, edema GASTROINTESTINAL: Denies nausea, vomiting, abdominal pain, diarrhea, constipation, melena. : See HPI MUSCULOSKELETAL: See HPI SKIN: No rash, no erythema, no pruritus NEUROLOGIC: Denies weakness, dizziness, headache, numbness, change in speech, confusion PSYCHIATRIC: No concerning psychosocial issues. 12 point review of systems is negative except for those stated above and HPI Patient History Medical History Cellulitis of left leg Congestive heart failure Elevated troponin Essential hypertension Hypertension Surgical History No pertinent past surgical history Family History Mother Hypertension Sister Hypertension Social History household members: none housing: other occupational status: unemployed Smoking Status: Current every day smoker alcohol intake: current additional social history: Lives in a hotel Smoking Status: Current every day smoker alcohol intake frequency: other Substance Use Type: does not use Exam Initial Vital Signs Initial Vital Signs: Vital Signs Temperature 97.6 F 07/26/21 19:22 Pulse Rate 76 07/26/21 19:22 Respiratory Rate 16 07/26/21 19:22 Blood Pressure 151/80 H 07/26/21 19:22 Pulse Oximetry 95 07/26/21 19:22 GENERAL: Disheveled 70-year-old male no acute distress CARDIOVASCULAR: peripheral pulses in tact, cap refill <2 sec RESPIRATORY: No respiratory distress, speaks in full sentences without difficulty ABDOMEN: Soft, nontender, no guarding or rebound : Arredondo catheter has been placed EXTREMITIES: Normal range of motion, no clubbing or edema. Neurovascularly intact. Left hip is non erythematous nontender NEUROLOGICAL: Cranial nerves II through XII grossly intact. Normal gait and speech. SKIN: Warm, dry, no petechiae, no rashes or lesions. Course Orders Ordered: ED Orders 07/26/21 19:24 Consult to BANDER AND CELLOPHANER HELPER MACHINE - Administrative Appeals Tribunal Member Stat Vital Signs Vital signs: Vital Signs - 8 hr 07/26/21 19:22 07/26/21 21:37 Temperature 97.6 F Pulse Rate 76 112 H Respiratory Rate 16 18 Blood Pressure 151/80 H 161/98 H Pulse Oximetry 95 99 MDM - Extremity Injury (Lower) MDM Narrative Medical decision making narrative: The patient overall appears well he has no complaints seems to be social he was given a new brief in the emergency department and clean scrubs, which he now wants to be put back into his dirty jeans because they are warmer. He was offered food but states that he has a large sandwich and car. After reviewing his chart he does have an E coli in fection he was given 1 dose of Rocephin in about 2 days worth of antibiotics. He may or may not need a longer course of antibiotics. He is noncompliant and has no way of getting antibiotics. However he is not having symptoms or complaints about that. Really was complaining of left hip pain which is no longer present. At this time the patient is afebrile does not appear septic, I did discuss with him he needs to return to the emergency department and have his Arredondo catheter removed a couple of days. At that time blood work and re-evaluation it may need to be 10. He may need more days of antibiotics. He understands and agrees to return to have his Arredondo catheter removed. 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 Please continue to take Tylenol 500 mg every 4-6 hours if needed for pain (do not exceed more than 4000 mg in 24 hours) Please return to the emergency department and about 3-4 days to have your Arredondo catheter removed Please follow-up your primary care provider in 2-3 days Return to the emergency department for including increased pain, redness, weakness, fever or any new or concerning symptoms Prescriptions: No Action melatonin 10 mg Tablet 10 mg PO BEDTIME PRN (Reason: Sleep) RF: 0 ibuprofen 400 mg tablet 400 mg PO Q6H PRN (Reason: postop pain) Qty: 30 RF: 0 sennosides [senna] 8.6 mg Tablet 17.2 mg PO BID Qty: 60 RF: 0 aspirin 81 mg Tablet,Delayed Release (Dr/Ec) 81 mg PO BID 42 Days Qty: 84 RF: 0 amlodipine 10 mg tablet 10 mg PO DAILY Qty: 30 RF: 0 metoprolol succinate 100 mg tablet extended release 24 hr 100 mg PO DAILY Qty: 30 RF: 0 acetaminophen 325 mg capsule 650 mg PO Q6H PRN (Reason: pain) Qty: 30 RF: 0
[2021-07-26 21:37] VITALS: BP 161/98; PULSE 112; RESP 18; O2SAT 99
--- NOTE | 2021-07-31 16:59 | CM.SWNOTE ---
BRAND ANALYST f/u Note BRAND ANALYST receives f/u consult for patient. Patient is 71 y/o male who presents to ED with hip concern. Patient has 15 ED encounters within the last 12 months. Patient often needs assistance to get out of the car and there is concern for patient's toxic living environment in his car where patient resides. BRAND ANALYST followed up with patient in person today as he has been parked at the hospital all day and called for assistance in emptying his catheter. applied anthropologist Mariah went out to patient's car with BRAND ANALYST. Patient endorses that he is connected with addiction social worker Daniela at [facility] and with community cement mason Lexa with [facility]. Patient endorses he receives food stamps. Patient denies local friends or family supports. Patient states that he lives in his car and often jones around time. BRAND ANALYST observes the car is full to the brim with patient's belongings, the car has an odor as well. Patient endorses that he has a phone but it is not charged. BRAND ANALYST contacts APS to report concern for patient's ability to care for himself and patient residing in toxic living environment. APS Online Report Confirmation Number: [id number] BRAND ANALYST to f/u with Community Lining Sewer Lexa and Daniela with [facility] tomorrow. JACK Valera
== END 2021-07-26 21:43 | disposition home or self-care (01) ==
PROVIDERS: Emergency Provider Emergency Medicine
DX: M25.552 Pain in left hip (principal); Z96.642 Presence of left artificial hip joint
CPT/HCPCS: 99281

== ENCOUNTER 2021-07-31 17:15 | Observation (INO) | payer MEDICARE, MEDICAID, SELFPAY ==
[2021-06-24 22:18] VITALS: BMI 29.3
[2021-07-31 17:20] VITALS: BP 108/81; PULSE 75; RESP 18; TEMP 36.9; O2SAT 99; BMI 30.7
--- NOTE | 2021-07-31 18:15 | PC.NURSE ---
Pt given warm meal,hot chocolate.
--- NOTE | 2021-07-31 18:20 | ED_ITS ---
HPI - Recheck/Abnormal Lab/Rx General Chief Complaint: Recheck/Abnormal Lab/Rx Stated Complaint: hip hurts, not in good shape Time Seen by Provider: 07/31/21 18:20 Source: patient Mode of arrival: Wheelchair History of Present Illness HPI narrative: 71-year-old gentleman with multiple repeat visits to the emergency department, has been living in his car for years presents today and sat in his car outside the emergency department after being with helping in cleaning him, changing his catheter etc. he was there much of the day and finall y allowed staff to help him into wheelchair so he can get in to the emergency department. He states that over the last couple of days he has gotten so weak that he can not transfer. At this time he quite literally cannot stand up which is a new finding for him. He had been able to use his walker previously. He has a history of hypertension, atrial fibrillation diastolic heart failure On July 02 of this year he had a left femoral neck fracture with a cemented unipolar left hip placed. Without hospitalization attempts were made to get [place] to [place] [facility] but he was unable/unwilling to do that. Apparently a hotel room was available for a couple of days only and he has moved back to his car. Since that visit, he has been seen on the for hip pain, the for acute bladder infection treated with antibiotics, the for acute urinary retention and Arredondo catheter was placed, July 26 for left hip pain. With each of these visits he was able to ambulate with his walker. Today he is globally weak cannot get out of his wheelchair needed mul tiple people to assist him to get out of his car was covered in stool and urine. He is amenable to a [place] [facility] placement at this point and is within the 30 day window of a hospital stay greater than 3 nights with discharge on July 02. He has absolutely no insight into his overall situation, he is globally weak and a full workup will be done. Related Data Home Medications Medication Instructions Recorded Confirmed melatonin 10 mg tablet 10 mg PO BEDTIME PRN 06/24/21 06/24/21 Previous Rx's Medication Instructions Recorded amlodipine 10 mg tablet 10 mg PO DAILY #30 tab 07/02/21 aspirin 81 mg tablet,delayed 81 mg PO BID 42 Days #84 tab 07/02/21 release ibuprofen 400 mg tablet 400 mg PO Q6H PRN #30 tab 07/02/21 metoprolol succinate 100 mg 100 mg PO DAILY #30 tab 07/02/21 tablet,extended release 24 hr sennosides 8.6 mg tablet (senna) 17.2 mg PO BID #60 tab 07/02/21 acetaminophen 325 mg capsule 650 mg PO Q6H PRN #30 cap 07/13/21 Allergies Allergy/AdvReac Type Severity Reaction Status Date / Time No Known Drug Allergies Allergy Verified 07/31/21 17:23 Review of Systems Review of Systems Narrative: Universally positive Pain, weakness, confusion, headaches, paresthesias, shortness of breath, chest pain, palpitations, abdominal pain, back pain, hip pain, dysuria, flank pain, general malaise and increasing fatigue Patient History Medical History Cellulitis of left leg Congestive heart failure Elevated troponin Essential hypertension Hypertension Surgical History No pertinent past surgical history Family History Mother Hypertension Sister Hypertension Social History household members: none housing: other occupational status: unemployed Smoking Status: Current every day smoker alcohol intake: current additional social history: Lives in a hotel Smoking Status: Current every day smoker alcohol intake frequency: other Substance Use Type: does not use Exam Narrative Exam Narrative: Patient is given a shower as he is covered in stool. Skin looks remarkably well. General: Globally weak, grossly disheveled, tangential poor eye contact HEENT: Moist mucous membranes, normal sclera with reactive pupils, Neck: No JVD, supple Respiratory: Lungs are clear to auscultation, no wheezing no rales no rhonchi. Full and symmetrical air movement Cardiac: Regular rate and rhythm no murmurs no bruits Abdomen: Soft, nontender, good bowel tones, no flank pain, Arredondo catheter is in place Skin: Warm and dry, no obvious skin breakdown. Minor chronic venous stasis changes bilaterally Neurologic: Globally weak, unable to stand from his wheelchair, difficulty rolling over in bed. He is moving all extremities Extremities: No trauma, bilateral LE edema Psych: Cantankerous, disheveled no insight into overall situation but fluent speech pattern Initial Vital Signs Initial Vital Signs: Vital Signs Temperature 98.5 F 07/31/21 17:20 Pulse Rate 75 07/31/21 17:20 Respiratory Rate 18 07/31/21 17:20 Blood Pressure 108/81 07/31/21 17:20 Pulse Oximetry 99 07/31/21 17:20 Course Orders Ordered: ED Orders 07/31/21 17:39 Consult to [employer] - Nursing Admin Stat 07/31/21 18:42 XR chest 1V Stat 07/31/21 18:43 EKG-12 Lead Stat 07/31/21 20:06 COVID19 - ADMIT (BREAD PANNER swab/PCR) Stat 07/31/21 20:52 Blood Culture Stat Complete Blood Count AUTO DIFF Stat Comprehensive Metabolic Panel Stat Ethanol (ETOH) Stat Lactate (Lactic Acid) Stat Lipase Stat Magnesium Stat NT-proBNP (BNP-Adult 18+) Stat Troponin I Stat 07/31/21 20:53 Ictotest Urine Stat Urinalysis and Microscopic Stat Urine Culture Stat Sodium Chloride (Normal Saline 0.9%) 1,000 mls @ 150 mls/hr IV CONT ZOILA Last Admin: 07/31/21 20:24 Dose: 150 mls/hr Documented by: FAWN Vital Signs Vital signs: Vital Signs - 8 hr 07/31/21 17:20 Temperature 98.5 F Pulse Rate 75 Respiratory Rate 18 Blood Pressure 108/81 Pulse Oximetry 99 MDM - Recheck/Abnormal Lab/Rx Lab Data Result diagrams: 07/31/21 20:52 07/31/21 20:52 Labs: Lab Results 07/31/21 07/31/21 07/31/21 Range/Units 20:06 20:52 20:52 WBC 9.5 (4.5-11.0) X10^3/uL RBC 4.83 (4.5-5.9) X10^6/uL Hgb 15.7 (13.5-17.5) g/dL Hct 46.7 (41-53) % MCV 96.7 (80-100) fL MCH 32.6 (26-34) PG MCHC 33.7 (30-36) % RDW 14.1 (11.6-14.8) % Plt Count 295 (150-400) X10^3/uL Neut % (Auto) 81.1 H (50-75) % Lymph % (Auto) 12.0 L (25-40) % [place] % (Auto) 5.2 (3-14) % Eos % (Auto) 1.0 L (2-4) % Baso % (Auto) 0.7 (0-2) % Neut # (Auto) 7700 H (8866-2589) /uL Lymph # (Auto) 1100 (0814-7383) /uL [place] # (Auto) 500 (0-900) /uL Eos # (Auto) 100 (0-450) /uL Baso # (Auto) 100 (0-100) /uL Sodium 141 (137-145) mmol/L Potassium 4.1 (3.4-5.1) mmol/L Chloride 100 (98-107) mmol/L Carbon Dioxide 34 H (22-32) mmol/L BUN 25 H (9-20) mg/dL Creatinine 0.90 (0.66-1.25) mg/dL Estimated GFR > 60.0 (>60) mL/min BUN/Creatinine Ratio 27.8 H (6-22) Glucose 119 H (80-110) mg/dL Lactate (0.7-2.1) mmol/L Calcium 10.1 (8.4-10.2) mg/dL Magnesium 2.3 (1.6-2.3) mg/dL Total Bilirubin 0.8 (0.2-1.3) mg/dL AST 30 (17-59) IU/L ALT 21 (<50) IU/L Alkaline Phosphatase 116 (38-126) U/L Troponin I 0.020 (0.01-0.034) ng/mL NT-Pro-B Natriuret Pep 3000 H (<125) pg/mL Total Protein 7.7 (6.3-8.2) g/dL Albumin 4.1 (3.5-5.0) g/dL Globulin 3.6 (1.7-4.1) g/dL Albumin/Globulin Ratio 1.1 (1.0-2.8) Lipase 54 (23-300) U/L Urine Color Urine Appearance Urine pH (4.5-8.0) Ur Specific [place] (1.000-1.035) Urine Protein (Negative) Urine Glucose (UA) (Negative) g/dL Urine Ketones (NEGATIVE) Urine Occult Blood (Negative) Urine Nitrate (Negative) Urine Bilirubin (NEGATIVE) Ur Bilirubin Confirm (Negative) Urine Urobilinogen (0.2) E.U./dL Ur Leukocyte Esterase (NEGATIVE) Urine RBC (0-5/HPF) Urine WBC (0-5/HPF) Ur Squamous Epith Cells (0-5/HPF) Calcium Oxalate Crystal Urine Bacteria (None) Hyaline Casts (None) Ur Culture Indicated? Ethyl Alcohol < 10 ( - 10) mg/dL SARS-CoV-2 (PCR) Negative (Negative) 07/31/21 07/31/21 Range/Units 20:52 20:53 WBC (4.5-11.0) X10^3/uL RBC (4.5-5.9) X10^6/uL Hgb (13.5-17.5) g/dL Hct (41-53) % MCV (80-100) fL MCH (26-34) PG MCHC (30-36) % RDW (11.6-14.8) % Plt Count (150-400) X10^3/uL Neut % (Auto) (50-75) % Lymph % (Auto) (25-40) % [place] % (Auto) (3-14) % Eos % (Auto) (2-4) % Baso % (Auto) (0-2) % Neut # (Auto) (5973-1738) /uL Lymph # (Auto) (5882-9838) /uL [place] # (Auto) (0-900) /uL Eos # (Auto) (0-450) /uL Baso # (Auto) (0-100) /uL Sodium (137-145) mmol/L Potassium (3.4-5.1) mmol/L Chloride (98-107) mmol/L Carbon Dioxide (22-32) mmol/L BUN (9-20) mg/dL Creatinine (0.66-1.25) mg/dL Estimated GFR (>60) mL/min BUN/Creatinine Ratio (6-22) Glucose (80-110) mg/dL Lactate 1.6 (0.7-2.1) mmol/L Calcium (8.4-10.2) mg/dL Magnesium (1.6-2.3) mg/dL Total Bilirubin (0.2-1.3) mg/dL AST (17-59) IU/L ALT (<50) IU/L Alkaline Phosphatase (38-126) U/L Troponin I (0.01-0.034) ng/mL NT-Pro-B Natriuret Pep (<125) pg/mL Total Protein (6.3-8.2) g/dL Albumin (3.5-5.0) g/dL Globulin (1.7-4.1) g/dL Albumin/Globulin Ratio (1.0-2.8) Lipase (23-300) U/L Urine Color Brown Urine Appearance Cloudy Urine pH 5.5 (4.5-8.0) Ur Specific [place] 1.025 (1.000-1.035) Urine Protein 3+ H (Negative) Urine Glucose (UA) Trace H (Negative) g/dL Urine Ketones Trace H (NEGATIVE) Urine Occult Blood 3+ H (Negative) Urine Nitrate Negative (Negative) Urine Bilirubin 2+ H (NEGATIVE) Ur Bilirubin Confirm Positive H (Negative) Urine Urobilinogen 2.0 H (0.2) E.U./dL Ur Leukocyte Esterase 1+ H (NEGATIVE) Urine RBC >100/hpf H (0-5/HPF) Urine WBC 10-30/hpf H (0-5/HPF) Ur Squamous Epith Cells 0-1 /hpf (0-5/HPF) Calcium Oxalate Crystal Occasional H Urine Bacteria Moderate (10-30) H (None) Hyaline Casts 0-1/lpf (None) Ur Culture Indicated? Specimen cultured Ethyl Alcohol ( - 10) mg/dL SARS-CoV-2 (PCR) (Negative) MDM Narrative Medical decision making narrative: 71-year-old gentleman with horrible social situation, currently living in his car and completely unable to take care of himself now unable to even stand. Hip fracture less than 30 days ago with hip replacement. He comes in today and full workup is done and surprisingly, I am not finding single concerned that would unify all of his complaints. Specifically am seeing no sign of a stroke, no STEMI or acute coronary syndrome, no sepsis, the urine was collected from his Arredondo bag and I do not believe is an infection. He has had multiple doses of ceftriaxone and within the last couple of days. On July 21 he had an E coli UTI that was pansensitive. No heart failure, renal failure, liver failure. Despite the horrible living conditions his skin has held up well and I do not find any obvious bed sores or cellulitis. He still is within the time frame for admission to [place] [facility] after his hip surgery and certainly needs to do so with the complicating factor that he is absolutely unable to take care of himself or stand up from sitting position at this time. Care is reviewed with hospitalist service and he will be admitted with anticipation of discharge to [place] [facility]. Discharge Plan Departure Patient Disposition: Admitted As Inpatient Prescriptions: No Action melatonin 10 mg Tablet 10 mg PO BEDTIME PRN (Reason: Sleep) RF: 0 ibuprofen 400 mg tablet 400 mg PO Q6H PRN (Reason: postop pain) Qty: 30 RF: 0 sennosides [senna] 8.6 mg Tablet 17.2 mg PO BID Qty: 60 RF: 0 aspirin 81 mg Tablet,Delayed Release (Dr/Ec) 81 mg PO BID 42 Days Qty: 84 RF: 0 amlodipine 10 mg tablet 10 mg PO DAILY Qty: 30 RF: 0 metoprolol succinate 100 mg tablet extended release 24 hr 100 mg PO DAILY Qty: 30 RF: 0 acetaminophen 325 mg capsule 650 mg PO Q6H PRN (Reason: pain) Qty: 30 RF: 0 Admit Date/Time: 07/31/21 22:37
--- NOTE | 2021-07-31 18:33 | CM.SWNOTE ---
Addendum entered by Cherrie Finch 07/31/21 19:24: FEATHER MIXER reviews with registration and FEATHER MIXER is informed that patient has both Medicare and Medicaid insurance, and his medicaid insurance policy was added to patient demographic information. JACK Valera Original Note: FEATHER MIXER Assessment Note FEATHER MIXER receives consult and enters room to meet with patient. Patient is 71 y/o male with concerns for his hip pain and not in good shape. FEATHER MIXER briefly met with patient in parking lot today prior to his decision to enter ED for f/u from patient's ED visit on 07/26/21. See f/u case note. Patient was admitted to on 06/24/21 until 07/02/21 after a hip replacement surgery. Patient endorses that his hip still hurts. Patient denies current PCP and states that he has not been to a PCP in a few years since his PCP retired. Patient endorses that he has been living in his car for the last 15 months when his landlord kicked him out. Patient endorses he was employed and he was receiving social security benefits. Patient endorses he receives social security benefits and food stamps right now. Patient endorses he thinks he has Medicaid but does not have insurance cards yet, FEATHER MIXER to f/u with registration. Patient endorses that he uses public restrooms and has a catheter for urine. Patient endorses that he feels safe living in his car. FEATHER MIXER endorses concern for patient living in his car and his ability to care for self and FEATHER MIXER endorses that FEATHER MIXER contacted [facility] for investigation and support services. Patient has established services with [facility]. Patient denies ETOH and substance use, patient states he used to drink and now he hardly ever drinks. Patient endorses he uses a walking stick but his cane disappeared. Patient endorses he is interested in going to a SNF. Patient states his friend Aric from [facility] is in support of patient getting such care. Patient is provided dinner and states he has not had a hot meal in 3 days. FEATHER MIXER reviews the above with ED provider Dr. Zambrano and Dr. Zambrano identifies that patient is within 30 days of [facility] admit. Plan: ED provider Dr. Zambrano to medically assess patient and FEATHER MIXER to f/u with POC JACK Valera
--- NOTE | 2021-07-31 18:42 | DI.RAD.S_ITS ---
PROCEDURE: XR CHEST 1V INDICATIONS: weakness TECHNIQUE: One view of the chest was acquired. COMPARISON: [facility], CR, XR CHEST 1V, 06/24/2021, 18:26. FINDINGS: Surgical changes and devices: None. Lungs and pleura: Lungs are clear. No pleural effusions or pneumothorax. Mediastinum: Mediastinal contours appear normal. Heart size is normal. Bones and chest wall: No suspicious bony lesions. Deformity of remote, healed right rib fractures. Left proximal humerus partially imaged enchondroma. Degenerative changes in the spine. Overlying soft tissues appear unremarkable. IMPRESSION: No acute cardiopulmonary disease. Dictated by: Grazyna Casiano M.D. on 07/31/2021 at 20:39 Approved by: Grazyna Casiano M.D. on 07/31/2021 at 20:40
--- NOTE | 2021-07-31 19:17 | PC.NURSE ---
Pt being given shower and clean clothes.
[2021-07-31] MEDS: SODIUM CHLORIDE 0.9% 1,000 ML 150 ML IV (20:24)
[2021-07-31 21:00] LABS: Appearance Urine UA CLOUDY; Bilirubin Urine UA 2+ (NEGATIVE); Color Urine UA BROWN; Glucose Urine UA TRACE g/dL (Negative); Ketones Urine UA TRACE (NEGATIVE); Leukocyte Esterase Urine UA 1+ (NEGATIVE); Nitrite Urine UA NEGATIVE (Negative); Occult Blood Urine UA 3+ (Negative); Protein Urine UA 3+ (Negative); Specific Gravity Urine UA 1.025 (1.000-1.035); pH Urine UA 5.5 (4.5-8.0)
[2021-07-31 21:19] LABS: RBC Urine >100/HPF (0-5/HPF); Squamous Epithelial Cell Urine 0-1 /HPF (0-5/HPF); WBC Urine 10-30/HPF (0-5/HPF)
[2021-07-31 21:20] LABS: Ictotest Urine Positive (Negative)
[2021-07-31 21:21] LABS: Bacteria Urine Moderate (10-30); Calcium Oxalate Crystals Urine Occasional; Culture Indicated Urine Specimen Cultured; Hyaline Casts Urine 0-1/LPF
[2021-07-31 21:21] LABS: COVID19 - ADMIT (NP swab/PCR) Negative (Negative)
[2021-07-31 21:27] LABS: Add Manual Diff / Slide Review NO; Basophils Absolute Auto 100 /uL (0-100); Basophils Percent Auto 0.7 % (0-2); Eosinophils Absolute Auto 100 /uL (0-450); Hematocrit 46.7 % (41-53); Hemoglobin 15.7 g/dL (13.5-17.5); Lymphocytes Absolute Auto 1100 /uL (1100-4500); Mean Corpuscular HGB Conc 33.7 % (30-36); Mean Corpuscular Hemoglobin 32.6 PG (26-34); Mean Corpuscular Volume 96.7 fL (80-100); Monocytes Absolute Auto 500 /uL (0-900); Monocytes Percent Auto 5.2 % (3-14); Neutrophils Absolute Auto 7700 /uL (1500-7000); Neutrophils Percent Auto 81.1 % (50-75); Platelet Count 295 X10^3/uL (150-400); Red Blood Cell Count 4.83 X10^6/uL (4.5-5.9); Red Cell Distribution Width 14.1 % (11.6-14.8); White Blood Cell Count 9.5 X10^3/uL (4.5-11.0)
[2021-07-31 21:29] LABS: Lactate (Lactic Acid) 1.6 mmol/L (0.7-2.1)
[2021-07-31 21:30] LABS: Alanine Aminotransferase 21 IU/L (<50); Albumin 4.1 g/dL (3.5-5.0); Albumin Globulin Ratio 1.1 (1.0-2.8); Alkaline Phosphatase 116 U/L (38-126); Aspartate Aminotransferase 30 IU/L (17-59); BUN Creatinine Ratio 27.8 (6-22); Bilirubin Total 0.8 mg/dL (0.2-1.3); Blood Urea Nitrogen 25 mg/dL (9-20); Calcium 10.1 mg/dL (8.4-10.2); Carbon Dioxide 34 mmol/L (22-32); Chloride 100 mmol/L (98-107); Estimated Glomerular Filt Rate > 60.0 mL/min (>60); Globulin 3.6 g/dL (1.7-4.1); Glucose 119 mg/dL (80-110); HEMOLYSIS < 15 (0-50); Lipase 54 U/L (23-300); Magnesium 2.3 mg/dL (1.6-2.3); Potassium 4.1 mmol/L (3.4-5.1); Sodium 141 mmol/L (137-145); Total Protein 7.7 g/dL (6.3-8.2)
[2021-07-31 21:39] LABS: Ethanol (ETOH) < 10 mg/dL
[2021-07-31 21:41] LABS: NT-proBNP (BNP-Adult 18+) 3000 pg/mL (<125)
[2021-07-31 22:48] VITALS: BMI 30.7
[2021-07-31 23:45] VITALS: BP 146/98; PULSE 98; RESP 16; TEMP 36.6; O2SAT 98
[2021-08-01] MEDS: DEXTROSE 5%-0.9% NS 1,000 ML 100 ML IV (00:38)
[2021-08-01] MEDS: cefTRIAXone 1,000 MG in SODIUM CHLORIDE 0.9% 100 ML 200 ML IV ×2 (00:39→23:52)
[2021-08-01 00:40] LABS: Alanine Aminotransferase 21 IU/L (<50); Bilirubin Total 0.8 mg/dL (0.2-1.3); Bilirubin Unconjugated 0.5 mg/dL (0.0-1.1); HEMOLYSIS < 15 (0-50)
[2021-08-01 00:42] LABS: Albumin 4.1 g/dL (3.5-5.0); Albumin Globulin Ratio 1.1 (1.0-2.8); Alkaline Phosphatase 116 U/L (38-126); Aspartate Aminotransferase 30 IU/L (17-59); Globulin 3.6 g/dL (1.7-4.1); Total Protein 7.7 g/dL (6.3-8.2)
[2021-08-01 00:46] LABS: Bilirubin Unconjugated 0.5 mg/dL (0.0-1.1)
--- NOTE | 2021-08-01 01:27 | PM.HP.1 ---
History of Present Illness History of Present Illness Date Patient Seen: 08/01/21 Time Patient Seen: 01:00 Chief complaint: S/P left hip repair 07/06, continued pain, CAUTI Narrative: This history is largely gleaned from report from the ED provider, previous documentation and nursing as the patient is unable to provide much of a history due to extreme weakness and lethargy. He falls asleep while being spoken to or while he is speaking. Rayo Estrada 71-year-old gentleman with multiple repeat visits to the emergency department and several admissions, has been living in his car for years presented earlier today and was found sitting in his car outside the emergency department. machine lay out worker was sent to see if they could help and convinced him to come into the ED for further evaluation. He was found in stool and and nursing staff helped cleaning him, changing his catheter etc and feeding him as he told them he had not eaten for 3 days. He states that over the last couple of days he has gotten so weak that he can not transfer.? At this time he quite literally cannot stand up which is a new finding for him.? He had been able to ambulate with a walker previously.? He has a history of hypertension, atrial fibrillation diastolic heart failure. On July 02 of this year he had a left femoral neck fracture with a cemented unipolar left hip placed.? During that hospital and subsequent, attempts were made to get him to usp facility for rehabilitation but he was unable/unwilling to do that.? Apparently a hotel room was available for a couple of days only and he has since moved back to his car.? Since the left hip surgery, he has been seen on the for hip pain, the for acute bladder infection treated with antibiotics, the for acute urinary retention and Arredondo catheter was placed, July 26 for left hip pain.? With each of these visits he was able to ambulate with his walker.? Today he is globally weak cannot get out of his wheelchair needed multiple people to assist him to get out of his car was covered in stool and urine.? He is amenable to a usp facility placement at this point and is within the 30 day window of a hospital stay greater than 3 nights with discharge on July 02.? After getting the patient cleaned up and fed, he was assessed in the ED for additional hip repair complications and underwent a chest x-ray all of which imaging studies were negative for anything acute. Temperature was 97.9?, blood pressure 146/98, heart rate 98, respiratory rate 16, oxygen saturation 98% on room air, he weighs not be 7.5 kg with a BMI of 30.7. CBC is unremarkable, his platelet count is 295, bicarb was 34, glucose 119, his proBNP was 3000, and his UA did meet criteria for culture. July 21 microbiology urine culture grew out E coli which is sensitive to ceftriaxone. COVID-19 PCR is negative. Another urine culture has been submitted for microbiology and is pending. Patient History Medical History Cellulitis of left leg Congestive heart failure Elevated troponin Essential hypertension Hypertension Surgical History No pertinent past surgical history Family & Social History Family History Mother Hypertension Sister Hypertension Social History: household members none Prior Living Arrangements Homeless Safety & Behavioral: Feels Safe in Current Yes Environment Suicidal Ideation Description None Suicide Plan Description No Plan Tobacco & Substance use: Tobacco type cigarettes Smoking Status Current every day smoker alcohol intake current alcohol intake frequency other Substance Use Type does not use Meds Home Medications and Allergies Home Medications Medication Instructions Recorded Confirmed Type melatonin 10 mg tablet 10 mg PO BEDTIME PRN 06/24/21 06/24/21 History amlodipine 10 mg tablet 10 mg PO DAILY #30 tab 07/02/21 Rx aspirin 81 mg tablet,delayed 81 mg PO BID 42 Days #84 tab 07/02/21 Rx release ibuprofen 400 mg tablet 400 mg PO Q6H PRN #30 tab 07/02/21 Rx metoprolol succinate 100 mg 100 mg PO DAILY #30 tab 07/02/21 Rx tablet,extended release 24 hr sennosides 8.6 mg tablet (senna) 17.2 mg PO BID #60 tab 07/02/21 Rx acetaminophen 325 mg capsule 650 mg PO Q6H PRN #30 cap 07/13/21 Rx Allergies Allergy/AdvReac Type Severity Reaction Status Date / Time No Known Drug Allergies Allergy Verified 07/31/21 17:23 Review of Systems Review of Systems ROS: Yes unobtainable due to mental status Exam Vital Signs (past 8 hours): - 07/31/21 23:45 Temperature 97.9 F Pulse Rate 98 H Respiratory Rate 16 Blood Pressure 146/98 H Pulse Oximetry 98 Oxygen Delivery Method Room Air Oxygen Flow Rate 0 Narrative Exam Narrative: Gen: Alert, oriented, disheveled-appearing 71 y.o. female, chronically ill appearing HEENT: normocephalic, atraumatic, conjunctiva clear, sclera non-icteric, oral mucosa pink and moist Neck: supple, full ROM, no JVD, trachea is midline Resp: Lungs CTA, non-labored breathing CV: RRR, no murmur or rubs Abd: soft, non-tender, normoactive BTs : Arredondo draining very light pink clear urine Skin: no lesions or rashes, dry and intact. Well-healed posterior incision of the right upper femur area intact and dry with no appearance of infection. Neuro: Alert and oriented X 4 w/no focal deficits. Speech clear and coherent. Extremities: Very weak, though he appears to have full passive range of motion, normally ambulatory with a walker but is not today. Negative Martha?s sign Psyche: normal mood and affect. Objective Labs Result Diagrams: 07/31/21 20:52 07/31/21 20:52 Labs: Laboratory Results - last 24 hr 07/31/21 07/31/21 07/31/21 20:06 20:52 20:52 WBC 9.5 RBC 4.83 Hgb 15.7 Hct 46.7 MCV 96.7 MCH 32.6 MCHC 33.7 RDW 14.1 Plt Count 295 Neut % (Auto) 81.1 H Lymph % (Auto) 12.0 L [place] % (Auto) 5.2 Eos % (Auto) 1.0 L Baso % (Auto) 0.7 Neut # (Auto) 7700 H Lymph # (Auto) 1100 [place] # (Auto) 500 Eos # (Auto) 100 Baso # (Auto) 100 Sodium 141 Potassium 4.1 Chloride 100 Carbon Dioxide 34 H BUN 25 H Creatinine 0.90 Estimated GFR > 60.0 BUN/Creatinine Ratio 27.8 H Glucose 119 H Lactate Calcium 10.1 Magnesium 2.3 Total Bilirubin 0.8 Conjugated Bilirubin 0.0 Unconjugated Bilirubin 0.5 AST 30 ALT 21 Alkaline Phosphatase 116 Troponin I 0.020 NT-Pro-B Natriuret Pep 3000 H Total Protein 7.7 Albumin 4.1 Globulin 3.6 Albumin/Globulin Ratio 1.1 Lipase 54 Urine Color Urine Appearance Urine pH Ur Specific [place] Urine Protein Urine Glucose (UA) Urine Ketones Urine Occult Blood Urine Nitrate Urine Bilirubin Ur Bilirubin Confirm Urine Urobilinogen Ur Leukocyte Esterase Urine RBC Urine WBC Ur Squamous Epith Cells Calcium Oxalate Crystal Urine Bacteria Hyaline Casts Ur Culture Indicated? Ethyl Alcohol < 10 SARS-CoV-2 (PCR) Negative 07/31/21 07/31/21 07/31/21 20:52 20:52 20:53 WBC RBC Hgb Hct MCV MCH MCHC RDW Plt Count Neut % (Auto) Lymph % (Auto) [place] % (Auto) Eos % (Auto) Baso % (Auto) Neut # (Auto) Lymph # (Auto) [place] # (Auto) Eos # (Auto) Baso # (Auto) Sodium Potassium Chloride Carbon Dioxide BUN Creatinine Estimated GFR BUN/Creatinine Ratio Glucose Lactate 1.6 Calcium Magnesium Total Bilirubin 0.8 Conjugated Bilirubin 0.0 Unconjugated Bilirubin 0.5 AST 30 ALT 21 Alkaline Phosphatase 116 Troponin I NT-Pro-B Natriuret Pep Total Protein 7.7 Albumin 4.1 Globulin 3.6 Albumin/Globulin Ratio 1.1 Lipase Urine Color Brown Urine Appearance Cloudy Urine pH 5.5 Ur Specific [place] 1.025 Urine Protein 3+ H Urine Glucose (UA) Trace H Urine Ketones Trace H Urine Occult Blood 3+ H Urine Nitrate Negative Urine Bilirubin 2+ H Ur Bilirubin Confirm Positive H Urine Urobilinogen 2.0 H Ur Leukocyte Esterase 1+ H Urine RBC >100/hpf H Urine WBC 10-30/hpf H Ur Squamous Epith Cells 0-1 /hpf Calcium Oxalate Crystal Occasional H Urine Bacteria Moderate (10-30) H Hyaline Casts 0-1/lpf Ur Culture Indicated? Specimen cultured Ethyl Alcohol SARS-CoV-2 (PCR) Assessment & Plan Assessment & Plan narrative: Rayo Estrada is readmitted for profound weakness, probable malnutrition, and failure to thrive in the setting of chronic homelessness and secondary to a less than 30 day history of a left-sided hip surgery. 1. Severe weakness, unknown if acute Patient has been seen by social work and states he is agreeable to being housed in a rehab setting for the moment Physical therapy has been ordered for evaluation in the morning Possibly due to 2. 2. Urinary tract infection in the setting of chronic urinary retention, acute, present on admission New Arredondo bag was attached however the Arredondo itself was not changed per the ED Consideration should be made to actually change out the catheter indicates that it is the source of his infection although likely his general poor hygiene was a contributing factor given growth of E coli He has been restarted on ceftriaxone IV 1 g daily and current UA culture is pending 3. Probable severe malnutrition, likely chronic in the setting of homelessness Patient will be given a heart healthy diet 4. History of heart failure Patient is currently not taking prescribed antihypertensives but does take aspirin 81 mg p.o. daily Patient had an echocardiogram done approximately in April of 2020 and his EF was 55-60% 5. Chronic homelessness Patient has been homeless for 15 years and living out of his car Patient should be referred to long-term low-income housing after rehabilitation and possibly mental health counseling VTE Prophylaxis: Wells risk score 1.5 Enoxaparin 40 mg subQ once daily Patient is admitted to the inpatient service due to the severity of disease, risks of further disease progression and this stay is expected to exceed 2 midnights. FEN: IV fluids: saline lock, diet: cardiac low sodium, labs: CBC, C/BMP, liver enzymes, Mag, PT/INR Consultants None Dispo: Rehab/SNF Code status: Full Code as discussed with the patient who identifies friend Aric as his surrogate and POA. [X] I have utilized all available immediate resources to obtain, update, or review of the patient's current medications COVID-19 COVID-19 status: Negative Result date/Date tested (Pos, Neg/Pending): 08/01/21 Scores [facility] [place] coma scale eye opening: To sound Isadora coma scale verbal response: Confused Isadora coma scale motor response: Obey commands Isadora coma scale total score: 13 Wells' Criteria for PE Clinical signs and symptoms of DVT: No PE is #1 Dx or equally likely: No Heart rate > 100: No Immobilization at least 3 days or surg in previous 4 weeks: Yes History of PE or DVT: No Hemoptysis: No Malignancy w/Treatment within 6 months or palliative: No Wells' PE Score total: 1.5 Quality VTE Deep Vein Thrombosis/Pulmonary Embolism Present on Admission: No MIPS - Admit I confirm the patient?s Advance Care Plan is present, Code status is documented, Surrogate decision maker is in patient?s record [If Yes, STOP here]: Yes MIPS - DC The patient has current or prior documentation of left ventricular ejection fraction (LVEF) less than 40%, or moderate or severely depressed left ventricular systolic function.: No
[2021-08-01 05:00] VITALS: BP 130/84; PULSE 93; RESP 16; TEMP 36.5; O2SAT 98
--- NOTE | 2021-08-01 05:16 | PC.ADMIT ---
General Delivery Admission Note: Patient arrived to room at 22:55 from ER. Alert to self and situation, sleepy and falling asleep during assessment. Patient shown how to use call light, call light within reach. Breaks on bed are locked. Bed alarm on. The patient,Rayo Estrada,71 y/o, was given written information regarding hospital policies, unit procedures and contact persons. Patient's smoking status: Current every day smoker. Vital Signs - 8 hr 07/31/21 23:45 Temperature 97.9 F Pulse Rate 98 H Respiratory Rate 16 Blood Pressure 146/98 H Pulse Oximetry 98
[2021-08-01 05:56] LABS: Add Manual Diff / Slide Review NO; Basophils Absolute Auto 100 /uL (0-100); Basophils Percent Auto 0.9 % (0-2); Eosinophils Absolute Auto 100 /uL (0-450); Eosinophils Percent Auto 2.2 % (2-4); Hematocrit 38.8 % (41-53); Hemoglobin 13.2 g/dL (13.5-17.5); Lymphocytes Absolute Auto 1500 /uL (1100-4500); Lymphocytes Percent Auto 22.4 % (25-40); Mean Corpuscular HGB Conc 34.1 % (30-36); Mean Corpuscular Hemoglobin 32.6 PG (26-34); Mean Corpuscular Volume 95.7 fL (80-100); Monocytes Absolute Auto 500 /uL (0-900); Monocytes Percent Auto 7.2 % (3-14); Neutrophils Absolute Auto 4400 /uL (1500-7000); Neutrophils Percent Auto 67.3 % (50-75); Platelet Count 252 X10^3/uL (150-400); Red Blood Cell Count 4.05 X10^6/uL (4.5-5.9); Red Cell Distribution Width 13.6 % (11.6-14.8); White Blood Cell Count 6.6 X10^3/uL (4.5-11.0)
[2021-08-01 06:03] LABS: BUN Creatinine Ratio 29.7 (6-22); Blood Urea Nitrogen 22 mg/dL (9-20); Carbon Dioxide 28 mmol/L (22-32); Chloride 107 mmol/L (98-107); Estimated Glomerular Filt Rate > 60.0 mL/min (>60); Glucose 118 mg/dL (80-110); HEMOLYSIS < 15 (0-50); Magnesium 2.1 mg/dL (1.6-2.3); Potassium 3.3 mmol/L (3.4-5.1); Sodium 139 mmol/L (137-145)
[2021-08-01 09:00] VITALS: BP 132/77; PULSE 87; RESP 18; TEMP 36.1; O2SAT 97
[2021-08-01] MEDS: ENOXAPARIN 40 MG/0.4 ML SYRINGE SUBCUT (09:17)
[2021-08-01] MEDS: ASPIRIN EC 81 MG TABLET PO ×2 (09:17→20:13)
[2021-08-01] MEDS: POTASSIUM CHLORIDE 20 MEQ TAB 40 MEQ PO (09:17)
--- NOTE | 2021-08-01 10:40 | PT.IIE ---
Medical History (Last Reviewed 08/01/21 @ 01:41 by ARAMIS Contreras) Cellulitis of left leg Congestive heart failure Elevated troponin Essential hypertension Hypertension Physical Therapy Inpatient Evaluation/Re-Eval M1 PT/OT-IP Prior Functional Status Start: 08/01/21 11:58 Freq: NEEDED Status: Active Protocol: Document 08/01/21 10:40 AB (Rec: 08/01/21 12:15 AB [email or web address]) Medical Review Prior Functional Status Medical History Reviewed Yes Communication able to make needs known Mobility and Gait pt stated that he is modified independent using a FWW; stated that his FWW is with his friend right now Social History Household Members none Living Arrangements Homeless Additional Social History Comment pt is homeless and lives on his car; stated that his FWW is with his friend M2 PT-IP Current Condition Start: 08/01/21 11:58 Freq: NEEDED Status: Active Protocol: Document 08/01/21 10:40 AB (Rec: 08/01/21 12:15 AB [email or web address]) Physical Therapy Current Condition Current Condition Evaluation Date 08/01/21 Treatment Diagnosis UTI; H/O L TAN posterior (06/25); difficulty in walking Onset Date 07/31/21 M3 PT-IP Subjective Start: 08/01/21 11:58 Freq: NEEDED Status: Active Protocol: Document 08/01/21 10:40 AB (Rec: 08/01/21 12:15 AB [email or web address]) Subjective Physical Therapy Visit Type Type Initial Evaluation Visit Start Time 10:40 Visit Stop Time 11:10 Total Visit Minutes 30 Number of TOPPER PRESS OPERATOR Visits 0 Physical Therapy Visit Comments Patient Comments pt is easily agitated and stated that he is not happy; required motivation to participate Therapy Pain Assessment Pain When Pain Assessed At Rest Pain Present Pain Present Pain Reported Location Left Knee Intensity 8 Scale Used Numeric (0 - 10) Pain Management Techniques Distraction,Modification of Treatment,Re-positioning, Timing of Activity with Medications M4 PT-IP Mobility and Gait Start: 08/01/21 11:58 Freq: NEEDED Status: Active Protocol: Document 08/01/21 10:40 AB (Rec: 08/01/21 12:15 AB [email or web address]) PT-Bed Mobility Assessment Supine to Sit Supine to Sit Maximum Assistance,2 Person Assistance,Head of Bed Elevated,Bedrails Scooting Scooting to Edge of Bed Maximum Assistance,Dependent PT-Transfer Assessment Sit to and From Stand Sit to and from Stand Maximum Assistance,2 Person Assistance,Use of Upper Extremities Equipment Transfer Assistive Device Gait Belt,Front Wheeled Walker Orthotic/Prosthetic Devices or Brace: No Transfers Transfer Destination Chair Transfer Technique Stand Step Pivot Transfer Ability Level of Assist Maximum Assistance,1 Person Assistance,2 Person Assistance ,Use of Upper Extremities Comments Mobility Comments pt is easily agitated and requires motivation to participate. Pt with h/o recent L TAN posterior approach last 06/25/21 and this PT talked with NAVIN Segura and PA is familiar with pt as pt is Dr. Mena's pt. PA confirmed that pt should continue to adhere to his posterior hip precautions. Reviewed posterior hip precautions with pt but when asked questions regarding precautions, pt got agitated. educated pt regarding importance of precautions and safety at this time. attempted supine to sit x 3 reps. Max A x 2 and max cues and max x 2 to total A x 2 for scooting to EOB. pt tends to push back to the bed to supine with first 2 attempts and stated that he is trying. completed on 3rd attempt and required mod A to sit on EOB. has increase thoracic kyphosis. completed sit to stand max A x 2 and max cues. completed step transfer max A x 1-2 and max cues. required assist with weight shifting to be able to move LE. max A for controlled descent to chair. unable to maintain hip precautions. positioned pt on chair. call light and table placed within reach. Gait Assessment Comments Gait Comments took a few steps during transfers. PT-Balance Assessment Sitting Balance and Reactions Static Sitting Balance Ability Poor Dynamic Sitting Balance Ability Poor Standing Balance and Reactions Static Standing Balance Ability Poor Dynamic Standing Balance Ability Poor Device Used FWW M5 PT-IP Objective Assessments Start: 08/01/21 11:58 Freq: NEEDED Status: Active Protocol: Document 08/01/21 10:40 AB (Rec: 08/01/21 12:15 AB [email or web address]) Orientation Orientation/Cognition Level of Alertness Alert Orientation Name Safety Awareness Decreased Safety Awareness Memory Description Short Term Impaired,Banquet Houseperson Impaired Strength Lower Extremity Strength Assessment Bilaterally Impaired Comments Strength Comments RLE: 4-/5 LLE: 3+/5 Muscle Tone Muscle Tone WNL Yes M6 PT-IP Treatment Start: 08/01/21 11:58 Freq: NEEDED Status: Active Protocol: Document 08/01/21 10:40 AB (Rec: 08/01/21 12:15 AB [email or web address]) Physical Therapy Treatment Education Education Provided Precautions,Safety M7 PT-IP Assessment and Plan Start: 08/01/21 11:58 Freq: NEEDED Status: Active Protocol: Document 08/01/21 10:40 AB (Rec: 08/01/21 12:15 AB [email or web address]) PT Summary Assessment and Plan Potential Rehabilitation Potential Fair Status of Condition at Evaluation Evolving Summary Impairments Pain,ROM,Strength,Balance, Coordination,Sensation,Tone, Cognition,Bed Mobility, Transfers,Gait,Activity Tolerance Assessment Summary pt requiring max A x 2 with mobility and has cognitive issues affecting adherence to hip precautions and safety awareness. Pt is homeless and will need 24/ assist at this time. Pt will require SNF rehab to improve strength mobility and functional independence. Goals Bed Mobility Goal Minimal Assistance Transfer Goal Minimal Assistance,Front Wheeled Walker Gait Goal Minimal Assistance,Front Wheel Walker Gait Distance 50 Other Goals improve bed mobility and transfers to CGA improve ambulation usng FWW 100 ft CGA Days to Meet Goals 10 Frequency of Treatment Frequency Of Treatment Once a Day Treatment Plan Physical Therapy Treatment Plan Bed Mobility Training,Transfer Training,Gait Training, Therapeutic Exercise,Balance Retraining,Post Op Education, Discharge Planning,Hot or Cold Pack,Neuromuscular Re-ed, Coordination Retraining,Manual Therapy Precautions Posterior Hip Precautions No Hip Flexion > 90 degrees,No Hip Internal Rotation,No Hip Adduction Other Precautions falls Recommendations To Nursing Amount of Assist Needed 2 Person Assist Discharge Recommendations PT Discharge Recommendations SNF Rehab Transportation Needs at Discharge Wheelchair/Cabulance
--- NOTE | 2021-08-01 10:49 | DIET.PN1 ---
Dietary Progress Note Assessment: 71y M admitted for global weakness after being found in his car unable to ambulate and covered in urine and feces referred to nutrition for malnutrition screening. Pt homeless living in car. Pt fell and broke hip in Jun 2021 with multiple ED visits over the past month. Pt reports to RD he stopped receiving EBT food benefits several months ago and has to beg for money to purchase food and water. Pt had not had a meal in the 3 days prior to this admit. Pt has hearty appetite and enjoyed the two meals he has received thus far while hospitalized. Pt reports [employer] meal sites are a joke and is unaware of local food pantries. Pt has added barrier that he is homeless without kitchen facilities so only ready made, ready to eat items are useful for him. Pts weight hx shows 4.1% unintentional weight loss in a month, however, pt is severely food insecure with any PO intake likely nutrient-poor, highly processed, and high calorie. Pt has increased nutrient needs for healing secondary to recent hip fracture and repair. Ht: 180.34 cm Wt: 97.9 kg BMI: 30.7 UBW: 101-125kg Last BM: 07/31/21 (07/31/21 22:48) MNA: 10 Ray Score: 16 Diet: 08/01/21 Breakfast Fluid Restriction Diet Diet Modifications: Total fluid amount: 1,200 Amount allotted to patient trays: 1,200 Free water included in total: Yes 7a-3p amount: 500 3p-11p amount: 500 11p-7a amount: 200 Heart Healthy Diet Diet Modifications: Labs: RBC 4.05 X10^6/uL (4.5-5.9) L 08/01/21 05:19 Hgb 13.2 g/dL (13.5-17.5) L 08/01/21 05:19 Hct 38.8 % (41-53) L 08/01/21 05:19 Creatinine 0.74 mg/dL (0.66-1.25) 08/01/21 05:19 Lactate 1.6 mmol/L (0.7-2.1) 07/31/21 20:52 NT-Pro-B Natriuret Pep 3000 pg/mL (<125) H 07/31/21 20:52 Nutrition Diagnosis: Severe Acute on Chronic Protein Calorie Malnutrition r/t food insecurity and increased nutrient needs aeb 4.1% unintentional weight loss in <1mo, pt chronically homeless living in car with no federal food benefits, pt reports begging for food/water, not eaten 3 days prior to admit, pt c hip fracture and repair 1mo ago, pt consuming <25% EER for protein. Interventions: 1. Pt on fluid restricted, heart healthy diet. Assisted pt to menu and assisted with ordering three meal trays/d with focus on nutrient rich, high protein options for healing and nutrient repletion. Discussion with kitchen to provide large portion sizes of protein. 2. Discussion c care management regarding reinstating pts federal food benefits so pt able to purchase nourishing ready-made food items. EER: 1900kcals (20kcals/kg per overweight PCM), 125g PRO (1.3g/kg per PCM, post-surgical) Monitoring/Evaluations: POs Electronically Signed by: Dominique Calderon 08/01/21 10:49 Clinical Dietitian [address] [address]
--- NOTE | 2021-08-01 11:43 | OT.IP.EVAL ---
Past Medical History (Last Reviewed 08/01/21 @ 01:41 by ARAMIS Contreras) Cellulitis of left leg Congestive heart failure Elevated troponin Essential hypertension Hypertension No pertinent past surgical history Surgical History (Last Reviewed 08/01/21 @ 01:41 by ARAMIS Contreras) No pertinent past surgical history Occupational Therapy Inpatient Evaluation/Re-Eval M1 PT/OT-IP Prior Functional Status Start: 08/01/21 11:58 Freq: NEEDED Status: Active Protocol: Document 08/01/21 11:35 [facility] (Rec: 08/01/21 12:36 [facility] [id number]) Medical Review Prior Functional Status Medical History Reviewed Yes Communication able to make needs known Mobility and Gait pt stated that he is modified independent using a FWW; stated that his FWW is with his friend right now Activities of Daily Living and IADL's Pt states did what he could and having more difficulty with his ADL needs. Social History Household Members none Living Arrangements Homeless Additional Social History Comment pt is homeless and lives on his car; stated that his FWW is with his friend M2 OT-IP Current Condition Start: 08/01/21 12:18 Freq: Status: Active Protocol: Document 08/01/21 11:35 [facility] (Rec: 08/01/21 12:36 [facility] [id number]) Occupational Therapy Current Condition Current Condition Evaluation Date 08/01/21 Treatment Diagnosis UTI, hx of Left TAN 06/25, decreased mobility Diagnosis Onset Date 07/31/21 Post Operative Precautions Posterior Hip Precautions No Hip Flexion > 90 degrees,No Hip Internal Rotation,No Hip Adduction M3 OT- IP Subjective and Pain Start: 08/01/21 12:18 Freq: Status: Active Protocol: Document 08/01/21 11:35 [facility] (Rec: 08/01/21 12:36 [facility] [id number]) OT- Subjective Occupational Therapy Visit Type Type Initial Evaluation Visit Start Time 11:35 Visit Stop Time 11:43 Total Visit Minutes 8 Occupational Therapy Visit Comments Patient Comments Pt agreed to talk to OT for OT eval. Patient/Caregiver Goals Pt states would like to go to skilled rehab. OT Pain Assessment Pain When Pain Assessed During Mobility Pain Present Pain Present Pain Reported M4 OT- IP ADL's Start: 08/01/21 12:18 Freq: Status: Active Protocol: Document 08/01/21 11:35 [facility] (Rec: 08/01/21 12:36 [facility] [id number]) OT [id number] Comments OT Self-Feeding Comments NOt at meal time. OT ADL-Grooming Comments OT Grooming Comments Pt states did prior. OT ADL-Oral Care Comments Oral Care Comments Pt states did prior. OT ADL-Dressing General Eval Lower Body Dressing Ability Maximum Assistance Comments OT Dressing Comments At time pt will need MAXA for LB dressing needs due to his hip precautions. OT ADL-Toileting Comments OT Toileting Comments Arredondo in place. OT ADL-Bathing Comments OT Bathing Comments Pt states prior only able to sponge off when he was able to . M6 OT- IP Functional Cognition Start: 08/01/21 12:18 Freq: Status: Active Protocol: Document 08/01/21 11:35 [facility] (Rec: 08/01/21 12:36 [facility] [id number]) Cognitive Factors Limiting Selfcare Function Cognitive Ability Level of Alertness Alert Patient Orientation Name,Place,Situation Attention Span Ability Capable of Focused Attention, Capable of Sustained Attention Ability to Follow Commands Able to Follow One Step Commands Safety Awareness Decreased Recall of Precautions,Decreased Ability to Apply Precautions, Underestimates Need for Assistance Cognitive Comments Cognitive Assessment Comments Pt not able to recall his hip precautions. Initially pt not wanting to get up , but after explaining the importance of participating so pt will be able to go to skilled rehab and get better. Pt mainly worried about getting his car fixed. Able to get across to the pt the importance to get himself better now. Pt able to cooperate. OT- Vision and Hearing OT- Hearing Assessment OT- Hearing Assessment WFL M7 OT- IP Mobility and Balance Start: 08/01/21 12:18 Freq: Status: Active Protocol: Document 08/01/21 11:35 [facility] (Rec: 08/01/21 12:36 [facility] [id number]) OT-Transfer Assessment Sit to and From Stand Sit to and from Stand Moderate Assistance,Maximum Assistance,1 Person Assistance Comments Mobility Comments Pt agreed to stand and needing MOD/MAX A x1 to the FWW and then wanting to sit back down. OT- Balance Assessment Sitting Balance and Reactions Static Sitting Balance Ability Good Dynamic Sitting Balance Ability Fair Standing Balance and Reactions Static Standing Balance Ability Poor M8 OT- IP Objective Assessments Start: 08/01/21 12:18 Freq: Status: Active Protocol: Document 08/01/21 11:35 [facility] (Rec: 08/01/21 12:36 [facility] [id number]) OT Gross Range of Motion Upper Extremity Range of Motion ROM Impairments grossly WFL OT Strength Comments Strength Comments BUE 4-/5 OT-Muscle Tone Assessment Muscle Tone WNL Yes M9 OT- IP Assessment and Plan Start: 08/01/21 12:18 Freq: Status: Active Protocol: Document 08/01/21 11:35 [facility] (Rec: 08/01/21 12:36 [facility] [id number]) OT Summary Assessment and Plan Potential Rehabilitation Potential Fair Analytic Complexity at Evaluation Moderate Summary OT Impairments Pain,Strength,Balance, Functional Cognition, Functional Mobility,Grooming, Dressing,Toileting,Bathing, Toilet Transfers,Shower Transfers,Activity Tolerance Progress Towards Goals Slow Progress due to Pain,Slow Progress due to Medical Issues,Slow Progress due to Activity Tolerance,Slow Progress due to Cognition Assessment Summary Pt MOD complexity and here due to UTI and recent L TAN on . Prior pt not open to going to skilled rehab on last hospital admit , but pt now open to going to skilled rehab. Pt will benefit from skilled rehab. Pt needs extra time, encouragement, and willing to participate. Goals Grooming Goal Independent Dressing Goal Independent Toileting Goal Independent Bathing Goal Independent Toilet Transfer Goal Independent Shower Transfer Goal Independent Patient/Caregiver Education Goal Demonstrate Post-Op Precautions Days to Meet Goals 35 Frequency of Treatment Frequency Of Treatment Once a Day Treatment Plan OT Treatment Plan ADL Training,Functional Cognition Training,Functional Mobility,Patient/Family Education,Discharge Planning Other Treatment Recommendations and Next Transfer to [facility] with MODA X 2 Treatment Focus with FWW. Discharge Recommendations OT Discharge Recommendations SNF Rehab Transportation Needs at Discharge Wheelchair/Cabulance
[2021-08-01 12:02] VITALS: BP 122/69; PULSE 95; RESP 18; TEMP 36.1; O2SAT 93
--- NOTE | 2021-08-01 15:45 | CM.DANOTE ---
Patient is a 71 yo male who was admitted on 07/31/21 for Failure Thrive. Pt has [facility] for insurance and he is not established with PCP. EMR was reviewed. Per MD, pt admitted for UTI and leg swelling and could benefit from SNF. Per PT/OT, pt requiring 1 to 2PA for mobility and below his baseline of using a walker for ambulation. Recommending SNF rehab. Pt was last admitted end of May/beginning Jun for GLF with hip fx and surgical intervention and multiple SNF's were attempted but declined pt due to his homelessness status. Pt eventually progressed enough to safely d/c with [facility] voucher program for a few days and then returned to his car. Met w/patient, explained SW role. Patient is very pleasant, calm, some mild cognitive delay noted. Patient's only family contact is his sister, Yusra, who lives in [place] P# [phone] and cannot travel or support pt at this time. Pt also has a good friend Carlito Tinoco ([phone]) who helped pt complete the Medicaid Ferro/Food assistance application during last admission a month ago but states my place is too tiny for pt to live with me. Carlito is available to assist with pwk and visiting. Patient has been transient for many years and pt had stable housing in [place] for at least 6 months, not subsidized housing, but [employer] sold this property and patient was asked to vacate. Since moving out of [place], patient has lived in his car, he spent one night at [facility] that did not go well, and has spent some time up in [place]. Pt has utilized [facility]oucher Program in the past and has stayed at [facility] in [place] before. Pt had been on waiting list at [facility] (subsidized/HUD housing in [place]) which is approx a 5 year wait time but pt unsure if he is still on the waiting list at this time. Patient makes approx $1,200 in SS and would be agreeable to living in an AFH/GROUP HOME if there was one available to him and he qualified for funding through [facility]. Patient explains he has been able to manage mostly independently but might have benefited from a walker in the motel. Patient denies daily drug or alcohol use, UDS was negative. During pt's admission a month ago, it was determined with [facility] and [facility] that pt was not active in their Medicaid system and would need to complete another Medicaid application. Pt was agreeable and friend Carlito visited bedside and completed the Medicaid application and DC faxed application in along with Expedited referral. SW called [facility] and left 2 messages and then called [facility] who state they do not see pt as active on Medicaid or an application in process. Admission Counselors confirmed pt has Medicaid but not for medical coverage, pt's Medicaid only covers AARP MCR copays, etc.. HANK then called [place] office to follow up on the Expedited form and they confirm that Medicaid yoana received but for Ferro/Food assistance not LTC application and currently no Expedited referrals being screened as they are too inundated with referrals and only expediting if on Hospice services. HANK met bedside with pt and updated him on his referral for Food and Ferro assistance through Medicaid and that it shows it should be processed within 10 business days from processing the referral on 07/20/21. HANK also requested pt complete the Medicaid LTC application for SNF/[facility] and pt is agreeable and states he feels he can call his friend Carlito to help with anything he is struggling to complete on the application. HANK discussed likely need for SNF at d/c with pt and he confirms he would be agreeable but aware that SNF was attempted last month and his homelessness is a barrier to placement. Pt fully vaccinated here at the hospital in December and January 2021 this year. HANK called following Swing Beds: [facility]- left detailed msg [facility]- need to inquire with bakery supervisor on their staffing and bed availability and will call back by Thurs. [facility]- currently not accepting new admits due to staffing for at least the next month [facility]- left detailed msg. HANK also called [facility] to review under pt's AARP MCR with plan of d/c on motel voucher program/return to car or ongoing efforts with Medicaid LTC process. HANK also called Daniela at [facility] and left msg to follow up on any other possible options for pt as they are aware of him and have been trying to help with housing. Plan: SW to follow closely for rehab needs and housing needs and for pt to complete the Medicaid LTC application. JACK Wiley Discharge Planning/Care Management CM Discharge Assessment Start: 08/01/21 15:43 Freq: Status: Active Protocol: Document 08/01/21 15:43 [facility] (Rec: 08/01/21 15:45 [facility] [id number]) Discharge Planning Assessment Assigned Recreation Assistant JACK Bailey DPOA/Assigned Designee Name none, informally sister in [place] Contact Information Yusra Rojo Advance Directives? No Advance Directives on File No History Provided By Patient,Medical Record Has Patient been admitted in last 30 No days? Comment Recently discharged to Motel Voucher Program after GLF/hip fx Prior Living Arrangements Homeless Household Members none Type of transporation used prior to Drives own vehicle admit Comment Vehicle currently broken down Independent with ADL's Yes Is patient alert and oriented? Yes Needs Assistance With Meal Prep,Managing Medications ,Home Chores / Shopping Caregiver for Another No DME Already Rented / Owned FWW / Walker Patient/Family Preference [facility] Facility Barriers to Discharge Yes Comment Pt's homeless status Discharge Plan [facility] Transportation Arrangement Pending d/c plan Referrals Initiated [facility] Review Status In Process Please Provide Date Initial DC 08/01/21 Assessment Was Performed Next Review Type Continued Stay Review
[2021-08-01 17:00] VITALS: BP 122/89; PULSE 91; RESP 18; TEMP 36.4; O2SAT 100
[2021-08-01 19:00] VITALS: BP 118/73; PULSE 91; RESP 16; TEMP 37.2; O2SAT 97
[2021-08-01] MEDS: ACETAMINOPHEN 325 MG TABLET 650 MG PO (20:13)
[2021-08-01 23:52] VITALS: BP 149/91; PULSE 92; RESP 18; TEMP 37.1; O2SAT 98
[2021-08-02] VITALS (7 sets, daily range): BP systolic 140–148; BP diastolic 80–100; PULSE 72–108; RESP 16–18; TEMP 36.2–37.1; O2SAT 95–97
[2021-08-02 00:09] LABS: Acinetobacter baumannii Not Detected (Not Detect); Enterobacteriaceae species Not Detected (Not Detect); Enterococcus species Not Detected (Not Detect); Listeria monocytogenes Not Detected (Not Detect); Methicillin-resistant gene Detected (Not Detect); Staphylococcus species Detected (Not Detect); Streptococcus agalactiae (Gr B Not Detected (Not Detect); Streptococcus pneumonia Not Detected (Not Detect); Streptococcus pyogenes (Gr A) Not Detected (Not Detect); Streptococcus species Not Detected (Not Detect)
[2021-08-02 00:10] LABS: Candida albicans Not Detected (Not Detect); Candida glabrata Not Detected (Not Detect); Candida krusei Not Detected (Not Detect); Candida parapsilosis Not Detected (Not Detect); Candida tropicalis Not Detected (Not Detect); E. coli Not Detected (Not Detect); Enterobacter cloacae complex Not Detected (Not Detect); Haemophilus influenzae Not Detected (Not Detect); Neisseria meningitidis Not Detected (Not Detect); Proteus species Not Detected (Not Detect); Pseudomonas aeruginosa Not Detected (Not Detect); Serratia marcescens Not Detected (Not Detect)
--- NOTE | 2021-08-02 01:37 | PC.NURSE ---
This RN was told my day shift RN that patient had had 3 loose stools during day shift. Patient continued to have loose BMs this shift and this RN called Provider, ARAMIS Rajput asking if a C-Diff sample could be sent to the lab. Telephone orders were given to collect and send. A sample was sent at 2345. Rin in the lab called at 0122 to report that the patient was positive for C-Diff. Provider and charge were notified.
--- NOTE | 2021-08-02 01:43 | PC.NURSE ---
Addendum entered by Bertha Mortensen R.N. 08/02/21 02:47: Francis was removed at 0235 and a new one was placed at 0240. Patient tolerated well. Original Note: Rin in lab called at 0012 with positive blood culture results showing Staph in the Aerobic bottle only. This RN notified Provider ARAMIS Rajput and verbal orders were given to replace the providers francis cath if it has not been done since admission. This RN could not find any documentation stating that the francis had been changed, only the bag. Francis will be replaced this shift.
[2021-08-02] MEDS: LIDOCAINE JELLY 2% 5 ML 1 APPLIC TOP (02:32)
[2021-08-02 05:41] LABS: Add Manual Diff / Slide Review NO; Basophils Absolute Auto 100 /uL (0-100); Basophils Percent Auto 0.9 % (0-2); Eosinophils Absolute Auto 200 /uL (0-450); Eosinophils Percent Auto 3.4 % (2-4); Hematocrit 37.5 % (41-53); Hemoglobin 12.6 g/dL (13.5-17.5); Lymphocytes Absolute Auto 1300 /uL (1100-4500); Lymphocytes Percent Auto 23.6 % (25-40); Mean Corpuscular HGB Conc 33.7 % (30-36); Mean Corpuscular Hemoglobin 32.5 PG (26-34); Mean Corpuscular Volume 96.4 fL (80-100); Monocytes Absolute Auto 400 /uL (0-900); Monocytes Percent Auto 7.4 % (3-14); Neutrophils Absolute Auto 3700 /uL (1500-7000); Neutrophils Percent Auto 64.7 % (50-75); Platelet Count 243 X10^3/uL (150-400); Red Blood Cell Count 3.89 X10^6/uL (4.5-5.9); Red Cell Distribution Width 13.9 % (11.6-14.8); White Blood Cell Count 5.7 X10^3/uL (4.5-11.0)
[2021-08-02 05:44] LABS: Alanine Aminotransferase 15 IU/L (<50); Albumin 2.9 g/dL (3.5-5.0); Albumin Globulin Ratio 1.2 (1.0-2.8); Alkaline Phosphatase 94 U/L (38-126); Aspartate Aminotransferase 19 IU/L (17-59); BUN Creatinine Ratio 29.5 (6-22); Bilirubin Total 0.3 mg/dL (0.2-1.3); Bilirubin Unconjugated 0.1 mg/dL (0.0-1.1); Blood Urea Nitrogen 26 mg/dL (9-20); Calcium 8.6 mg/dL (8.4-10.2); Carbon Dioxide 27 mmol/L (22-32); Chloride 108 mmol/L (98-107); Estimated Glomerular Filt Rate > 60.0 mL/min (>60); Globulin 2.5 g/dL (1.7-4.1); Glucose 114 mg/dL (80-110); HEMOLYSIS < 15 (0-50); Magnesium 2.1 mg/dL (1.6-2.3); Potassium 3.7 mmol/L (3.4-5.1); Sodium 139 mmol/L (137-145); Total Protein 5.4 g/dL (6.3-8.2)
[2021-08-02] MEDS: ENOXAPARIN 40 MG/0.4 ML SYRINGE SUBCUT (09:17)
[2021-08-02] MEDS: ASPIRIN EC 81 MG TABLET PO ×2 (09:18→20:44)
[2021-08-02] MEDS: TAMSULOSIN 0.4 MG CAPSULE PO (09:24)
--- NOTE | 2021-08-02 11:25 | OT.IP.TRT ---
Occupational Therapy Treatment Note M2 OT-IP Current Condition Start: 08/01/21 12:18 Freq: Status: Active Protocol: Document 08/01/21 11:35 [facility] (Rec: 08/01/21 12:36 [facility] [id number]) Occupational Therapy Current Condition Current Condition Evaluation Date 08/01/21 Treatment Diagnosis UTI, hx of Left TAN 06/25, decreased mobility Diagnosis Onset Date 07/31/21 Post Operative Precautions Posterior Hip Precautions No Hip Flexion > 90 degrees,No Hip Internal Rotation,No Hip Adduction M3 OT- IP Subjective and Pain Start: 08/01/21 12:18 Freq: Status: Active Protocol: Document 08/02/21 11:43 [facility] (Rec: 08/02/21 11:55 [facility] [id number]) OT- Subjective Occupational Therapy Visit Type Type Treatment Note Visit Start Time 11:23 Visit Stop Time 11:40 Total Visit Minutes 17 Occupational Therapy Visit Comments Patient Comments Pt initially agreeing to get up to the recliner and then wanting to stay in bed. After explaining the importance of getting up pt agreed to sit on the edge of the bed. Patient/Caregiver Goals Pt states would like to go to skilled rehab. OT Pain Assessment Pain When Pain Assessed At Rest Pain Present Pain Present Pain Reported Location Left Knee Intensity 8 Scale Used Numeric (0 - 10) M4 OT- IP ADL's Start: 08/01/21 12:18 Freq: Status: Active Protocol: Document 08/01/21 11:35 [facility] (Rec: 08/01/21 12:36 [facility] [id number]) OT [id number] Comments OT Self-Feeding Comments NOt at meal time. OT ADL-Grooming Comments OT Grooming Comments Pt states did prior. OT ADL-Oral Care Comments Oral Care Comments Pt states did prior. OT ADL-Dressing General Eval Lower Body Dressing Ability Maximum Assistance Comments OT Dressing Comments At time time pt will need MAXA for LB dressing needs due to his hip precautions. OT ADL-Toileting Comments OT Toileting Comments Arredondo in place. OT ADL-Bathing Comments OT Bathing Comments Pt states prior only able to sponge off when he was able to . M6 OT- IP Functional Cognition Start: 08/01/21 12:18 Freq: Status: Active Protocol: Document 08/02/21 11:43 [facility] (Rec: 08/02/21 11:55 [facility] [id number]) Cognitive Factors Limiting Selfcare Function Cognitive Ability Level of Alertness Alert Patient Orientation Name,Place,Situation Attention Span Ability Capable of Focused Attention, Capable of Sustained Attention Ability to Follow Commands Able to Follow One Step Commands Safety Awareness Decreased Recall of Precautions,Decreased Ability to Apply Precautions, Underestimates Need for Assistance Cognitive Comments Cognitive Assessment Comments Pt not able to recall his hip precautions. pt needing encouragement and explanations of why participating in therpy is important in order to get better. Pt is cooperative after encouragement and listening to the pt. OT- Vision and Hearing OT- Vision Assessment Vision Assessment Comments Pt looking to the right and states thought someone took his books away. Pt's books located to the far right on the treatment table. Pt tends to flex and laterally lean his head to the left. M7 OT- IP Mobility and Balance Start: 08/01/21 12:18 Freq: Status: Active Protocol: Document 08/02/21 11:43 [facility] (Rec: 08/02/21 11:55 [facility] [id number]) OT- Bed Mobility Assessment Supine to Sit Supine to Sit Assist Maximum Assistance,1 Person Assistance,Head of Bed Elevated Sit to Supine Sit to Supine Assist Maximum Assistance,1 Person Assistance OT-Transfer Assessment Comments Mobility Comments Pt needing MAX A x1 to assist to get his legs to the edge of the bed, heavy use of green sheet to get his hips over and assist to get his trunk upright. Pt has difficulty to sit at the edge of the bed and needing MARVA to sit and tends to lean backwards to pillow behind him. Pt states just feeling weak. Pt needing two person assist to help reposition pt back in bed. OT- Balance Assessment Sitting Balance and Reactions Static Sitting Balance Ability Fair Dynamic Sitting Balance Ability Poor Standing Balance and Reactions Static Standing Balance Ability Poor Comments Other Balance Tests/Deviations/Treatment Noted decreased balance today : and tending to lean backwards into posterior tilt while seated on the edge of the bed. Pt requiring more assist today versus yesterday. M8 OT- IP Objective Assessments Start: 08/01/21 12:18 Freq: Status: Active Protocol: Document 08/01/21 11:35 [facility] (Rec: 08/01/21 12:36 [facility] [id number]) OT Gross Range of Motion Upper Extremity Range of Motion ROM Impairments grossly WFL OT Strength Comments Strength Comments BUE 4-/5 OT-Muscle Tone Assessment Muscle Tone WNL Yes M9 OT- IP Assessment and Plan Start: 08/01/21 12:18 Freq: Status: Active Protocol: Document 08/02/21 11:43 [facility] (Rec: 08/02/21 11:55 [facility] [id number]) OT Summary Assessment and Plan Potential Rehabilitation Potential Fair Analytic Complexity at Evaluation Moderate Summary OT Impairments Pain,Strength,Balance, Functional Cognition, Functional Mobility,Grooming, Dressing,Toileting,Bathing, Toilet Transfers,Shower Transfers,Activity Tolerance Progress Towards Goals Slow Progress due to Pain,Slow Progress due to Medical Issues,Slow Progress due to Activity Tolerance,Slow Progress due to Cognition Assessment Summary Pt needing more assist for mobility needs today. Noted decreased sitting balance today and leaning into posterior and lateral tilt to the left more so today. Pt will benefit from skilled rehab when medically stable. Goals Grooming Goal Independent Dressing Goal Independent Toileting Goal Independent Bathing Goal Independent Toilet Transfer Goal Independent Shower Transfer Goal Independent Patient/Caregiver Education Goal Demonstrate Post-Op Precautions Days to Meet Goals 40 Frequency of Treatment Frequency Of Treatment Once a Day Treatment Plan OT Treatment Plan ADL Training,Functional Cognition Training,Functional Mobility,Patient/Family Education,Discharge Planning Other Treatment Recommendations and Next MAX A X2 to BSC with FWW. Treatment Focus Discharge Recommendations OT Discharge Recommendations SNF Rehab Transportation Needs at Discharge Wheelchair/Cabulance
[2021-08-02] MEDS: ACETAMINOPHEN 325 MG TABLET 650 MG PO ×2 (11:43→23:52)
--- NOTE | 2021-08-02 12:02 | CM.DPC ---
DCP Cont: Per MD, talked with RN and will begin pt on flomax and then attempt to d/c his francis by tomorrow to determine if pt still having urinary retention or if this has resolved and ideally get pt to not needing a francis cath due to his UTI and risk of infection. Pt's blood culture also came back with MRSA but only in one bottle and likely a contaminate and so repeat blood cultures today. PT/OT to still work with pt as he was 2PA yesterday. Update on Swing Bed attempt: [facility]: no beds or staffing for the foreseeable future. [facility]- closed due to staffing [facility]- left msg [facility]- talked at length with admissions Naz ([phone]) regarding pt situation and they are willing to consider but not requesting records at this time and likely will have an opening mid to late week next week (today is ) and will request clinicals to review at that time. SNF attempts: [facility]- willing to review. [facility]- faxed referral [facility]- faxed referral [facility]-faxed referral [facility]-faxed referral SW checked in with pt to see if he started the [facility] LTC yoana that SW provided to him bedside yesterday and he has not. But he is agreeable with SW calling his friend Carlito Tinoco ([phone]) to see if he can assist again in completing this application as he helped pt last month with completing the Medicaid food/culp assist yoana. SW called pt's friend Carlito and updated him that pt is readmitted and discussed need for LTC yoana and Carlito is very willing to drive up from [facility] today to assist pt bedside as he states he has remained in contact with the [facility] office for pt's culp/food assist and had requested LTC yoana already but had not received it yet. Carlito states he should be bedside around 1400 today to assist and SW updated RN and pt and pt is very appreciative. Plan: SW to follow closely for friend Carlito to complete LTC application with pt bedside today and further PT/OT and SNF and [facility] bed review. [place] MSW
--- NOTE | 2021-08-02 12:24 | P.PN_ITS ---
Subjective Subjective Date Patient Seen: 08/02/21 Time Patient Seen: 12:24 Interval history: Denies pain today, feels a bit stronger but still very weak. Exam Vital Signs (past 8 hours): - 08/02/21 06:19 08/02/21 08:00 08/02/21 11:51 Temperature 98.8 F 97.7 F Pulse Rate 72 81 97 H Respiratory Rate 18 16 16 Blood Pressure 148/100 H 146/97 H Pulse Oximetry 97 Oxygen Delivery Method Room Air Oxygen Flow Rate 0 Narrative Exam Narrative: Alert, oriented, disheveled-appearing 71 y.o. ? female, chronically ill appearing HEENT: normocephalic, atraumatic, conjunctiva clear, sclera non-icteric, oral mucosa pink and moist Neck: supple, full ROM, no JVD, trachea is midline Resp: Lungs CTA, non-labored breathing CV: RRR, no murmur or rubs Abd: soft, non-tender, normoactive BTs :? Arredondo draining very light pink clear urine Skin: no lesions or rashes, dry and intact.? Well-healed posterior incision of the right upper femur area intact and dry with no appearance of infection. Neuro: Alert and oriented X 4 w/no focal deficits. Speech clear and coherent. Extremities:? Very weak, though he appears to have full passive range of motion. Sitting up in bedside chair. Negative Martha?s sign Psyche: normal mood and affect. occasionally argumentative. Objective Labs Result Diagrams: 08/02/21 04:58 08/02/21 04:58 Labs: Laboratory Results - last 24 hr 07/31/21 08/02/21 08/02/21 20:52 04:58 04:58 WBC 5.7 RBC 3.89 L Hgb 12.6 L Hct 37.5 L MCV 96.4 MCH 32.5 MCHC 33.7 RDW 13.9 Plt Count 243 Neut % (Auto) 64.7 Lymph % (Auto) 23.6 L [place] % (Auto) 7.4 Eos % (Auto) 3.4 Baso % (Auto) 0.9 Neut # (Auto) 3700 Lymph # (Auto) 1300 [place] # (Auto) 400 Eos # (Auto) 200 Baso # (Auto) 100 Sodium Potassium Chloride Carbon Dioxide BUN Creatinine Estimated GFR BUN/Creatinine Ratio Glucose Calcium Magnesium Total Bilirubin 0.3 Conjugated Bilirubin 0.0 Unconjugated Bilirubin 0.1 AST 19 ALT 15 Alkaline Phosphatase 94 Total Protein 5.4 L Albumin 2.9 L Globulin 2.5 Albumin/Globulin Ratio 1.2 A. baumannii (PCR) Not detected Ofelia albicans (PCR) Not detected C. glabrata (PCR) Not detected C. krusei (PCR) Not detected C. parapsilosis (PCR) Not detected C. tropicalis (PCR) Not detected Enterobacteriac sp PCR Not detected E. cloacae complex PCR Not detected Enterococcus sp PCR Not detected E. coli (PCR) Not detected H. influenzae (PCR) Not detected Klebsiella oxytoca PCR Not detected Klebsiella pneumoniae Not detected List. monocytogenes PCR Not detected N. meningitidis (PCR) Not detected Proteus species (PCR) Not detected Serratia marcescens PCR Not detected Staphylococcus sp PCR Detected H Staph aureus (PCR) Not detected mecA-Methicil Res Gene Detected H Streptococcus sp PCR Not detected Group A Strep (PCR) Not detected Strep agalactiae (PCR) Not detected Strep pneumoniae (PCR) Not detected P. aeruginosa (PCR) Not detected Jailene/B-Vanco Res Genes Not Reportable KPC-Carbap Res Gene PCR Not Reportable 08/02/21 04:58 WBC RBC Hgb Hct MCV MCH MCHC RDW Plt Count Neut % (Auto) Lymph % (Auto) [place] % (Auto) Eos % (Auto) Baso % (Auto) Neut # (Auto) Lymph # (Auto) [place] # (Auto) Eos # (Auto) Baso # (Auto) Sodium 139 Potassium 3.7 Chloride 108 H Carbon Dioxide 27 BUN 26 H Creatinine 0.88 Estimated GFR > 60.0 BUN/Creatinine Ratio 29.5 H Glucose 114 H Calcium 8.6 Magnesium 2.1 Total Bilirubin Conjugated Bilirubin Unconjugated Bilirubin AST ALT Alkaline Phosphatase Total Protein Albumin Globulin Albumin/Globulin Ratio A. baumannii (PCR) Ofelia albicans (PCR) C. glabrata (PCR) C. krusei (PCR) C. parapsilosis (PCR) C. tropicalis (PCR) Enterobacteriac sp PCR E. cloacae complex PCR Enterococcus sp PCR E. coli (PCR) H. influenzae (PCR) Klebsiella oxytoca PCR Klebsiella pneumoniae List. monocytogenes PCR N. meningitidis (PCR) Proteus species (PCR) Serratia marcescens PCR Staphylococcus sp PCR Staph aureus (PCR) mecA-Methicil Res Gene Streptococcus sp PCR Group A Strep (PCR) Strep agalactiae (PCR) Strep pneumoniae (PCR) P. aeruginosa (PCR) Jailene/B-Vanco Res Genes KPC-Carbap Res Gene PCR [facility] Medical History Cellulitis of left leg Congestive heart failure Elevated troponin Essential hypertension Hypertension Surgical History No pertinent past surgical history Family History Mother Hypertension Sister Hypertension Social History household members: none housing: other occupational status: unemployed Smoking Status: Current every day smoker alcohol intake: current additional social history: Lives in a hotel Assessment & Plan Assessment & Plan narrative: Rayo Estrada is readmitted for profound weakness, probable malnutrition, and failure to thrive in the setting of chronic homelessness and secondary to a less than 30 day history of a left-sided hip surgery. 1. Severe weakness, acute, probably related to UTI * Patient has been seen by social work and states he is agreeable to being housed in a rehab setting for the moment, though this may be quite difficult with his social situation * Physical therapy has been ordered for evaluation in the morning 2. Urinary tract infection in the setting of chronic urinary retention, acute, present on admission * New Arredondo bag was attached however the Arredondo itself was not changed per the ED, this was changed yesterday * start flomax today, attempt trial of void tomorrow. * He has been restarted on ceftriaxone IV 1 g daily. UA grossly positive but culture negative. Continue antibiotics for 7 day course of complicated UTI. 3. Severe Acute on Chronic Protein Calorie Malnutrition appreciate dietary recommendations 4. Chronic diastolic heart failure * Patient is currently not taking prescribed antihypertensives but does take aspirin 81 mg p.o. daily. Restart medications. * Patient had an echocardiogram done approximately in April of 2020 and his EF was 55-60% Dispo: Rehab/SNF if possible. Code status: Full Code as discussed with the patient who identifies friend Aric as? his surrogate and POA. [X] I have utilized all available immediate resources to obtain, update, or review of the patient's current medications Time Spent With Patient Critical Care time: I spent a total of [] minutes of critical care time on this patient's care today; this time is exclusive of procedural time. Quality VTE Deep Vein Thrombosis/Pulmonary Embolism Present on Admission: No
--- NOTE | 2021-08-02 12:44 | CM.DPNOTE ---
Faxed referral packets to [facility] [place] and emailed Guillermina Bailey. Received confirm. Katherine Terry CM Asst.
--- NOTE | 2021-08-02 14:34 | PT.IPTN ---
Current Diagnoses Weakness (07/31/21) Physical Therapy Treatment Note M2 PT-IP Current Condition Start: 08/01/21 11:58 Freq: NEEDED Status: Active Protocol: Document 08/01/21 10:40 AB (Rec: 08/01/21 12:15 AB [id number]) Physical Therapy Current Condition Current Condition Evaluation Date 08/01/21 Treatment Diagnosis UTI; H/O L TAN posterior (06/25); difficulty in walking Onset Date 07/31/21 M3 PT-IP Subjective Start: 08/01/21 11:58 Freq: NEEDED Status: Active Protocol: Document 08/02/21 14:16 KS (Rec: 08/02/21 15:32 KS [id number]) Subjective Physical Therapy Visit Type Type Treatment Note Visit Start Time 14:16 Visit Stop Time 14:34 Total Visit Minutes 18 Number of HEALTH SERVICES COORDINATOR Visits 1 Physical Therapy Visit Comments Patient Comments Pts friend Aric present during treatment. M4 PT-IP Mobility and Gait Start: 08/01/21 11:58 Freq: NEEDED Status: Active Protocol: Document 08/02/21 14:16 KS (Rec: 08/02/21 15:32 KS [id number]) PT-Bed Mobility Assessment Supine to Sit Supine to Sit Maximum Assistance,1 Person Assistance,Head of Bed Elevated,Bedrails Scooting Scooting Up and Down in Bed Maximum Assistance PT-Transfer Assessment Comments Mobility Comments Pt in bed upon arrival from therapy and reporting fatigue but agreeable to working. Able to recall 1/3 precautions (no adduction).Pt Max A and max cues for sup<>sit and scooting EOB w/ HOB elevated and bedrails. Pt fatigues quickly and required bedrail to remain seated upright. Pt completed 1x5 bilateral ankle pumps and LAQ seated EOB but then reporting frustration and fatigue and requested to lay back down. Max A and max cues for sit<>sup. Max A x2 for scooting up in bed. Pt left in bed w/ all needs in reach. Gait Assessment Comments Gait Comments Not assessed. PT-Balance Assessment Sitting Balance and Reactions Static Sitting Balance Ability Poor Dynamic Sitting Balance Ability Poor Standing Balance and Reactions Static Standing Balance Ability Poor Dynamic Standing Balance Ability Poor Device Used FWW M5 PT-IP Objective Assessments Start: 08/01/21 11:58 Freq: NEEDED Status: Active Protocol: Document 08/01/21 10:40 AB (Rec: 08/01/21 12:15 AB [id number]) Orientation Orientation/Cognition Level of Alertness Alert Orientation Name Safety Awareness Decreased Safety Awareness Memory Description Short Term Impaired,Gear Lapping Machine Operator Impaired Strength Lower Extremity Strength Assessment Bilaterally Impaired Comments Strength Comments RLE: 4-/5 LLE: 3+/5 Muscle Tone Muscle Tone WNL Yes M6 PT-IP Treatment Start: 08/01/21 11:58 Freq: NEEDED Status: Active Protocol: Document 08/02/21 14:16 KS (Rec: 08/02/21 15:32 KS [id number]) Physical Therapy Treatment Exercises Exercises Ankle Pumps,Seated Knee Flexion/Extension Education Education Provided Precautions,Safety M7 PT-IP Assessment and Plan Start: 08/01/21 11:58 Freq: NEEDED Status: Active Protocol: Document 08/02/21 14:16 KS (Rec: 08/02/21 15:32 KS [id number]) PT Summary Assessment and Plan Potential Rehabilitation Potential Fair Status of Condition at Evaluation Evolving Summary Impairments Pain,ROM,Strength,Balance, Coordination,Sensation,Tone, Cognition,Bed Mobility, Transfers,Gait,Activity Tolerance Assessment Summary Pt Max A and max cues for bed mobility this PM. Difficulty moving LE and maintaining upright seated posture requiring bedrails to remain upright. Pt quick to fatigue following sup<>sit and ankle pumps and seated knee extension and Max A for sit<> sup. Pt will require SNF to improve strength and functional mobility. Goals Bed Mobility Goal Minimal Assistance Transfer Goal Minimal Assistance,Front Wheeled Walker Gait Goal Minimal Assistance,Front Wheel Walker Gait Distance 50 Other Goals improve bed mobility and transfers to CGA improve ambulation usng FWW 100 ft CGA Days to Meet Goals 10 Frequency of Treatment Frequency Of Treatment Once a Day Treatment Plan Physical Therapy Treatment Plan Bed Mobility Training,Transfer Training,Gait Training, Therapeutic Exercise,Balance Retraining,Post Op Education, Discharge Planning,Hot or Cold Pack,Neuromuscular Re-ed, Coordination Retraining,Manual Therapy Precautions Posterior Hip Precautions No Hip Flexion > 90 degrees,No Hip Internal Rotation,No Hip Adduction Other Precautions falls Recommendations To Nursing Amount of Assist Needed 2 Person Assist Discharge Recommendations PT Discharge Recommendations SNF Rehab Transportation Needs at Discharge Wheelchair/Cabulance
--- NOTE | 2021-08-02 15:09 | CM.DPNOTE ---
Addendum entered by Hawa Mena R.N. 08/03/21 15:28: CM called medicaid to check on application, CM was told they received KYLIE application and they will process it. CM received call from [facility] and they cannot accept patient neither can Li at [facility]. CM called [facility] at [phone] and LV again today to see if they have bed availability. CM called [facility]- they dont have bed availability but are willing to look at him next week when they have beds open now that he has applied for kylie they are open to reviewing again probably Friday. Cm called [facility] to check in on referral and they cannot accept patient due to the fact that he does not have safe DC plan after SNF. CM met with patients friend Shadi at the bedside and explained role- patient stated shadi is my friend and that he helps me. Shadi let Cm know he going out of town until [place] next week but is just wanting to make sure patient is not going to be DC prior to him returning. CM told Shadi that the CM department is working hard to find a safe DC plan for the patient but we are struggling due to patient not having a safe DC plan after leaving a SNF. CM told Shadi that we will not guarantee that patient wont be DC if safe plan is determined prior to his return. Shadi stated understanding. CM asked Shadi if patient could stay with him once he DC from a SNF. since having a safe location to return to from a SNF is the concern for most facilities and a barrier to the facilities accepting the patient. Shadi stated he cannot have the patient come to his house since his wont let the patient stay. CM Department will continue to look for appropriate safe DC plan. Hawa Mena CM blood bank business manager Original Note: DCP Continued: CM received KYLIE application LYLY Murphy faxed application in and scanned into chart. CM department will follow up on this application tomorrow to make sure it was received. Li at [facility] said they cannot accept patient. Cm called and left with [facility] will follow up with them tomrrow to check on availability. Hawa Mena RNhuman resources office manager
[2021-08-02] MEDS: METOPROLOL ER 25 MG TABLET PO (20:44)
[2021-08-02] MEDS: cefTRIAXone 1,000 MG in SODIUM CHLORIDE 0.9% 100 ML 200 ML IV (23:53)
[2021-08-03] VITALS (11 sets, daily range): BP systolic 130–164; BP diastolic 79–103; PULSE 63–91; RESP 15–18; TEMP 36–37.9; O2SAT 95–99
[2021-08-03 05:00] LABS: Add Manual Diff / Slide Review NO; Basophils Absolute Auto 0 /uL (0-100); Basophils Percent Auto 0.7 % (0-2); Eosinophils Absolute Auto 200 /uL (0-450); Eosinophils Percent Auto 2.5 % (2-4); Hematocrit 37.2 % (41-53); Hemoglobin 12.6 g/dL (13.5-17.5); Lymphocytes Absolute Auto 1400 /uL (1100-4500); Lymphocytes Percent Auto 19.8 % (25-40); Mean Corpuscular HGB Conc 33.9 % (30-36); Mean Corpuscular Hemoglobin 32.5 PG (26-34); Mean Corpuscular Volume 95.8 fL (80-100); Monocytes Absolute Auto 400 /uL (0-900); Monocytes Percent Auto 6.5 % (3-14); Neutrophils Absolute Auto 4800 /uL (1500-7000); Neutrophils Percent Auto 70.5 % (50-75); Platelet Count 254 X10^3/uL (150-400); Red Blood Cell Count 3.88 X10^6/uL (4.5-5.9); Red Cell Distribution Width 13.9 % (11.6-14.8); White Blood Cell Count 6.9 X10^3/uL (4.5-11.0)
[2021-08-03 05:35] LABS: BUN Creatinine Ratio 31.4 (6-22); Blood Urea Nitrogen 22 mg/dL (9-20); Calcium 8.7 mg/dL (8.4-10.2); Carbon Dioxide 29 mmol/L (22-32); Chloride 106 mmol/L (98-107); Estimated Glomerular Filt Rate > 60.0 mL/min (>60); Glucose 107 mg/dL (80-110); HEMOLYSIS < 15 (0-50); Magnesium 2.1 mg/dL (1.6-2.3); Potassium 3.9 mmol/L (3.4-5.1); Sodium 136 mmol/L (137-145)
[2021-08-03] MEDS: TAMSULOSIN 0.4 MG CAPSULE PO (09:51)
[2021-08-03] MEDS: ASPIRIN EC 81 MG TABLET PO ×2 (09:51→21:09)
[2021-08-03] MEDS: METOPROLOL ER 25 MG TABLET PO ×2 (09:51→21:09)
[2021-08-03] MEDS: ENOXAPARIN 40 MG/0.4 ML SYRINGE SUBCUT (09:52)
--- NOTE | 2021-08-03 11:28 | PT.IPTN ---
Current Diagnoses Weakness (07/31/21) Physical Therapy Treatment Note M2 PT-IP Current Condition Start: 08/01/21 11:58 Freq: NEEDED Status: Active Protocol: Document 08/01/21 10:40 AB (Rec: 08/01/21 12:15 AB [id number]) Physical Therapy Current Condition Current Condition Evaluation Date 08/01/21 Treatment Diagnosis UTI; H/O L TAN posterior (06/25); difficulty in walking Onset Date 07/31/21 M3 PT-IP Subjective Start: 08/01/21 11:58 Freq: NEEDED Status: Active Protocol: Document 08/03/21 11:04 KS (Rec: 08/03/21 13:23 KS [id number]) Subjective Physical Therapy Visit Type Type Treatment Note Visit Start Time 11:04 Visit Stop Time 11:28 Total Visit Minutes 24 Number of PARTS SALES ADVISOR Visits 2 Physical Therapy Visit Comments Patient Comments Co-treat w/ OT M4 PT-IP Mobility and Gait Start: 08/01/21 11:58 Freq: NEEDED Status: Active Protocol: Document 08/03/21 11:04 KS (Rec: 08/03/21 13:23 KS [id number]) PT-Bed Mobility Assessment Supine to Sit Supine to Sit Maximum Assistance,2 Person Assistance,Head of Bed Elevated,Bedrails Scooting Scooting to Edge of Bed Maximum Assistance PT-Transfer Assessment Sit to and From Stand Sit to and from Stand Minimal Assistance,Moderate Assistance,1 Person Assistance ,Use of Upper Extremities Equipment Transfer Assistive Device Gait Belt,Front Wheeled Walker ,Sliding Board Orthotic/Prosthetic Devices or Brace: No Transfers Transfer Destination Chair Transfer Technique Slide Board Transfer Ability Level of Assist Maximum Assistance,1 Person Assistance,2 Person Assistance ,Use of Upper Extremities Comments Mobility Comments Pt in bed upon arrival from therapy and agreeable to sit in chair. Max A x2 and max cues for sup<>sit w/ HOB elevated. Pt has difficulty following commands, needs extra time, and has heavy posterior lean. Max A for scooting to EOB w/ OT supporting trunk to avoid posterior lean. Once EOB, pt unable to follow commands to sit upright and take hold of FWW. Slide board positioned, RN called for back up. Pt able to reach for arm rest to assist w/ transfer but resists transfer w/ arm increasing difficulty. Max A x2 for slide board transfer from bed to chair. Once in chair, pt agreed to sit<>stand w/ FWW. Mod A x2 and cues for first sit<>stand and Min A x2 for second sit<>stand. Pt then reported fatigue and was left in chair w/ OT in room. Gait Assessment Comments Gait Comments Not assessed. PT-Balance Assessment Sitting Balance and Reactions Static Sitting Balance Ability Poor Dynamic Sitting Balance Ability Poor Standing Balance and Reactions Static Standing Balance Ability Poor Dynamic Standing Balance Ability Poor Device Used FWW M5 PT-IP Objective Assessments Start: 08/01/21 11:58 Freq: NEEDED Status: Active Protocol: Document 08/01/21 10:40 AB (Rec: 08/01/21 12:15 AB [id number]) Orientation Orientation/Cognition Level of Alertness Alert Orientation Name Safety Awareness Decreased Safety Awareness Memory Description Short Term Impaired,Dobie Man Impaired Strength Lower Extremity Strength Assessment Bilaterally Impaired Comments Strength Comments RLE: 4-/5 LLE: 3+/5 Muscle Tone Muscle Tone WNL Yes M6 PT-IP Treatment Start: 08/01/21 11:58 Freq: NEEDED Status: Active Protocol: Document 08/03/21 11:04 KS (Rec: 08/03/21 13:23 KS [id number]) Physical Therapy Treatment Education Education Provided Precautions,Safety M7 PT-IP Assessment and Plan Start: 08/01/21 11:58 Freq: NEEDED Status: Active Protocol: Document 08/03/21 11:04 KS (Rec: 08/03/21 13:23 KS [id number]) PT Summary Assessment and Plan Potential Rehabilitation Potential Fair Status of Condition at Evaluation Evolving Summary Impairments Pain,ROM,Strength,Balance, Coordination,Sensation,Tone, Cognition,Bed Mobility, Transfers,Gait,Activity Tolerance Assessment Summary Pt continues to require Max A x2 for bed mobility and transfers, but was able to complete 2x sit<>stands w/ Mod A x2 then Min A x2 and FWW. Pt has difficulty following commands, making transfers more difficult, but is willing to try and improves w/ repetition. Pt will require SNF to improve strength, safety, and functional mobility. Goals Bed Mobility Goal Minimal Assistance Transfer Goal Minimal Assistance,Front Wheeled Walker Gait Goal Minimal Assistance,Front Wheel Walker Gait Distance 50 Other Goals improve bed mobility and transfers to CGA improve ambulation usng FWW 100 ft CGA Days to Meet Goals 10 Frequency of Treatment Frequency Of Treatment Once a Day Treatment Plan Physical Therapy Treatment Plan Bed Mobility Training,Transfer Training,Gait Training, Therapeutic Exercise,Balance Retraining,Post Op Education, Discharge Planning,Hot or Cold Pack,Neuromuscular Re-ed, Coordination Retraining,Manual Therapy Precautions Posterior Hip Precautions No Hip Flexion > 90 degrees,No Hip Internal Rotation,No Hip Adduction Other Precautions falls Recommendations To Nursing Amount of Assist Needed 2 Person Assist Discharge Recommendations PT Discharge Recommendations SNF Rehab Transportation Needs at Discharge Wheelchair/Cabulance
--- NOTE | 2021-08-03 11:38 | OT.IP.TRT ---
Current Diagnoses Weakness (07/31/21) Occupational Therapy Treatment Note M2 OT-IP Current Condition Start: 08/01/21 12:18 Freq: Status: Active Protocol: Document 08/01/21 11:35 [facility] (Rec: 08/01/21 12:36 [facility] [id number]) Occupational Therapy Current Condition Current Condition Evaluation Date 08/01/21 Treatment Diagnosis UTI, hx of Left TAN 06/25, decreased mobility Diagnosis Onset Date 07/31/21 Post Operative Precautions Posterior Hip Precautions No Hip Flexion > 90 degrees,No Hip Internal Rotation,No Hip Adduction M3 OT- IP Subjective and Pain Start: 08/01/21 12:18 Freq: Status: Active Protocol: Document 08/03/21 12:21 [facility] (Rec: 08/03/21 12:32 [facility] [id number]) OT- Subjective Occupational Therapy Visit Type Type Treatment Note Visit Start Time 11:03 Visit Stop Time 11:38 Total Visit Minutes 35 Occupational Therapy Visit Comments Patient Comments Pt agreed to try to get up to the recliner today. Patient/Caregiver Goals To go home. OT Pain Assessment Pain When Pain Assessed At Rest Pain Present Pain Present Denied Pain M4 OT- IP ADL's Start: 08/01/21 12:18 Freq: Status: Active Protocol: Document 08/03/21 12:21 [facility] (Rec: 08/03/21 12:32 [facility] [id number]) OT ADL-Grooming General Evaluation Areas Needing Assistance Retrieving/Set-up of Grooming Items OT ADL-Oral Care General Eval Areas of Assistance Retrieving/Set-Up of Items OT ADL-Dressing General Eval Lower Body Dressing Ability Total Assistance Areas Needing Assistance Socks OT ADL-Toileting General Evaluation Toileting Ability Total Assistance Areas Needing Assistance Empty Catheter or Colostomy OT ADL-Bathing Comments OT Bathing Comments Sponge bath more appropriate at this time. M6 OT- IP Functional Cognition Start: 08/01/21 12:18 Freq: Status: Active Protocol: Document 08/03/21 12:21 [facility] (Rec: 08/03/21 12:32 [facility] [id number]) Cognitive Factors Limiting Selfcare Function Cognitive Ability Level of Alertness Alert Patient Orientation Name,Place,Situation Attention Span Ability Capable of Focused Attention, Capable of Sustained Attention Ability to Follow Commands Able to Follow One Step Commands Safety Awareness Decreased Recall of Precautions,Decreased Ability to Apply Precautions, Underestimates Need for Assistance Cognitive Comments Cognitive Assessment Comments Pt has trouble to follow commands and needing concrete verbal cues to follow. Pt however was cooperative to participate in therapy today with FOLLOW UP REP and OT. M7 OT- IP Mobility and Balance Start: 08/01/21 12:18 Freq: Status: Active Protocol: Document 08/03/21 12:21 [facility] (Rec: 08/03/21 12:32 [facility] [id number]) OT- Bed Mobility Assessment Supine to Sit Supine to Sit Assist Maximum Assistance,2 Person Assistance OT-Transfer Assessment Transfers Transfer Ability Maximum Assistance,2 Person Assistance Technique Transfer Destination Bed,Chair Transfer Technique Lateral Scoot Devices Transfer Assistive Devices Gait Belt,Sliding Board Comments Mobility Comments MAX A x2 for bed mobility and MODA to MAX AX to sit at the edge of the bed and pt leaning into posterior and lateral lean to the left. FOLLOW UP REP and OT opted for sliding board transfer MAX AX 2. Then able to have pt come to stand from the recliner as able to use the armrest with his hands to assist to stand and needing MODA X 2 to FWW. Pt not wanting or able to take any steps at this time. Ang lift transfer safer for staff at this time. OT- Balance Assessment Sitting Balance and Reactions Static Sitting Balance Ability Poor Dynamic Sitting Balance Ability Poor Standing Balance and Reactions Static Standing Balance Ability Poor M8 OT- IP Objective Assessments Start: 08/01/21 12:18 Freq: Status: Active Protocol: Document 08/01/21 11:35 [facility] (Rec: 08/01/21 12:36 [facility] [id number]) OT Gross Range of Motion Upper Extremity Range of Motion ROM Impairments grossly WFL OT Strength Comments Strength Comments BUE 4-/5 OT-Muscle Tone Assessment Muscle Tone WNL Yes M9 OT- IP Assessment and Plan Start: 08/01/21 12:18 Freq: Status: Active Protocol: Document 08/03/21 12:21 [facility] (Rec: 08/03/21 12:32 [facility] [id number]) OT Summary Assessment and Plan Potential Rehabilitation Potential Fair Analytic Complexity at Evaluation Moderate Summary OT Impairments Pain,Strength,Balance, Functional Cognition, Functional Mobility,Grooming, Dressing,Toileting,Bathing, Toilet Transfers,Shower Transfers,Activity Tolerance Progress Towards Goals Slow Progress due to Pain,Slow Progress due to Medical Issues,Slow Progress due to Activity Tolerance,Slow Progress due to Cognition Assessment Summary Pt still having poor sitting balance today and but able to tolerate FOLLOW UP REP/OT session of transfer and grooming needs while seated. Pt will benefit from skilled rehab vs LTC. Goals Grooming Goal Independent Dressing Goal Independent Toileting Goal Independent Bathing Goal Independent Toilet Transfer Goal Independent Shower Transfer Goal Independent Patient/Caregiver Education Goal Demonstrate Post-Op Precautions Days to Meet Goals 40 Frequency of Treatment Frequency Of Treatment Once a Day Treatment Plan OT Treatment Plan ADL Training,Functional Cognition Training,Functional Mobility,Patient/Family Education,Discharge Planning Other Treatment Recommendations and Next MAX A X2 to BSC with FWW. Treatment Focus Discharge Recommendations OT Discharge Recommendations SNF Rehab Transportation Needs at Discharge Wheelchair/Cabulance
--- NOTE | 2021-08-03 11:41 | DIET.PN1 ---
Dietary Progress Note Assessment: 71 y/o M admitted with weakness and FTT in setting of chronic homelessness, presents with physical signs of malnutrition. Upon nutrition focused physical exam, Rayo displays muscle wasting of temporal and clavicle region. He endorses very low kcal intake r/t limited access to food, particularly since closing of [employer]. States he has not received SNAP benefits in over 2 years. SW plan for him to fill out SNAP yoana with friend for food benefits. Endorses two eating occurrences per day, however difficulty with remembering specific foods he eats beside yogurt and coffee when available. Good PO this morning with breakfast. CHF hx and fluid restriction c diet. Does not like ensure. Loves milk. EMR weight hx indicates some where between 2-6% weight loss over the last 1-2 weeks. Reports his UBW is 220#. Ht: 180.34 cm Wt: 97.9 kg BMI: 30.7 UBW: 100kg reported Last BM: 07/31/21 (07/31/21 22:48) MNA: 10 Ray Score: 14 Diet: 08/01/21 Breakfast Fluid Restriction Diet Diet Modifications: Total fluid amount: 1,200 Amount allotted to patient trays: 1,200 Free water included in total: Yes 7a-3p amount: 500 3p-11p amount: 500 11p-7a amount: 200 Heart Healthy Diet Diet Modifications: Nutrition Percent Meal Consumed 100% 08/02/21 13:00 Labs: RBC 3.88 X10^6/uL (4.5-5.9) L 08/03/21 04:27 Hgb 12.6 g/dL (13.5-17.5) L 08/03/21 04:27 Hct 37.2 % (41-53) L 08/03/21 04:27 Creatinine 0.70 mg/dL (0.66-1.25) 08/03/21 04:27 Lactate 1.6 mmol/L (0.7-2.1) 07/31/21 20:52 NT-Pro-B Natriuret Pep 3000 pg/mL (<125) H 07/31/21 20:52 Nutrition Diagnosis: Acute on chronic severe PCM r/t limited access to food and inadequate kcal intake aeb 2-6% weight loss, signs of muscle wasting, and reported <50% EER intake. Interventions: 1. Provided local food pantry information 2. Discussed with SOFTWARE ASSET MANAGEMENT ANALYST the option for milk instead of water with meals to increase kcal and protein intake 3. If fluid restriction is changed, he seems open to protein shake Monitoring/Evaluations: PO, fluid restriction status Electronically Signed by: Skyla Cueto 08/03/21 11:41 [address] [address]
--- NOTE | 2021-08-03 17:54 | P.PN_ITS ---
Subjective Subjective Date Patient Seen: 08/03/21 Time Patient Seen: 17:54 Interval history: Denies pain today, feels a bit stronger but still very weak. Exam Vital Signs (past 8 hours): - 08/03/21 11:11 08/03/21 11:30 08/03/21 12:39 Temperature 98.0 F Pulse Rate 91 H 91 H Respiratory Rate 17 Blood Pressure 130/95 H 130/95 H Pulse Oximetry 97 08/03/21 16:00 Temperature 98.9 F Pulse Rate 75 Respiratory Rate 16 Blood Pressure 145/95 H Pulse Oximetry 99 Oxygen Delivery Method Room Air Oxygen Flow Rate 0 Narrative Exam Narrative: Alert, oriented, disheveled-appearing 71 y.o. ? female, chronically ill appearing HEENT: normocephalic, atraumatic, conjunctiva clear, sclera non-icteric, oral mucosa pink and moist Neck: supple, full ROM, no JVD, trachea is midline Resp: Lungs CTA, non-labored breathing CV: RRR, no murmur or rubs Abd: soft, non-tender, normoactive BTs :? Arredondo draining very light pink clear urine Skin: no lesions or rashes, dry and intact.? Well-healed posterior incision of the right upper femur area intact and dry with no appearance of infection. Neuro: Alert and oriented X 4 w/no focal deficits. Speech clear and coherent. Extremities:? Very weak, though he appears to have full passive range of motion. Sitting up in bedside chair. Psyche: normal mood and affect. occasionally argumentative. Objective Labs Result Diagrams: 08/03/21 04:27 08/03/21 04:27 Labs: Laboratory Results - last 24 hr 08/03/21 08/03/21 04:27 04:27 WBC 6.9 RBC 3.88 L Hgb 12.6 L Hct 37.2 L MCV 95.8 MCH 32.5 MCHC 33.9 RDW 13.9 Plt Count 254 Neut % (Auto) 70.5 Lymph % (Auto) 19.8 L [place] % (Auto) 6.5 Eos % (Auto) 2.5 Baso % (Auto) 0.7 Neut # (Auto) 4800 Lymph # (Auto) 1400 [place] # (Auto) 400 Eos # (Auto) 200 Baso # (Auto) 0 Sodium 136 L Potassium 3.9 Chloride 106 Carbon Dioxide 29 BUN 22 H Creatinine 0.70 Estimated GFR > 60.0 BUN/Creatinine Ratio 31.4 H Glucose 107 Calcium 8.7 Magnesium 2.1 [facility] Medical History Cellulitis of left leg Congestive heart failure Elevated troponin Essential hypertension Hypertension Surgical History No pertinent past surgical history Family History Mother Hypertension Sister Hypertension Social History household members: none housing: other occupational status: unemployed Smoking Status: Current every day smoker alcohol intake: current additional social history: Lives in a hotel Assessment & Plan Assessment & Plan narrative: ?Rayo Estrada is readmitted for profound weakness, malnutrition, and failure to thrive in the setting of chronic homelessness and secondary to a less than 30 day history of a left-sided hip surgery. 1. Severe weakness, acute, probably related to UTI * Patient has been seen by social work and states he is agreeable to being housed in a rehab setting for the moment, though this may be quite difficult with his social situation * Physical therapy has been ordered for evaluation in the morning 2. Urinary tract infection in the setting of chronic urinary retention, acute, present on admission * New Arredondo bag was attached however the Arredondo itself was not changed per the ED, this was changed yesterday * started flomax, attempt trial of void tomorrow. * He has been restarted on ceftriaxone IV 1 g daily. UA grossly positive but culture negative. Continue antibiotics for 7 day course of complicated UTI. 3. Severe Acute on Chronic Protein Calorie Malnutrition appreciate dietary recommendations 4. Chronic diastolic heart failure * Patient is currently not taking prescribed antihypertensives but does take aspirin 81 mg p.o. daily. Restart medications. * Patient had an echocardiogram done approximately in April of 2020 and his EF was 55-60% Dispo: Rehab/SNF if possible. Code status: Full Code as discussed with the patient who identifies friend Aric as? his surrogate and POA. [X] I have utilized all available immediate resources to obtain, update, or review of the patient's current medications Time Spent With Patient Critical Care time: I spent a total of [] minutes of critical care time on this patient's care today; this time is exclusive of procedural time. Quality VTE Deep Vein Thrombosis/Pulmonary Embolism Present on Admission: No
[2021-08-03] MEDS: ACETAMINOPHEN 325 MG TABLET 650 MG PO (21:10)
[2021-08-03] MEDS: cefTRIAXone 1,000 MG in SODIUM CHLORIDE 0.9% 100 ML 200 ML IV (23:17)
[2021-08-04 06:30] LABS: Add Manual Diff / Slide Review NO; Basophils Absolute Auto 100 /uL (0-100); Basophils Percent Auto 1.1 % (0-2); Eosinophils Absolute Auto 200 /uL (0-450); Eosinophils Percent Auto 3.4 % (2-4); Hematocrit 37.9 % (41-53); Hemoglobin 12.8 g/dL (13.5-17.5); Lymphocytes Absolute Auto 1400 /uL (1100-4500); Lymphocytes Percent Auto 25.5 % (25-40); Mean Corpuscular HGB Conc 33.6 % (30-36); Mean Corpuscular Hemoglobin 32.5 PG (26-34); Mean Corpuscular Volume 96.6 fL (80-100); Monocytes Absolute Auto 400 /uL (0-900); Monocytes Percent Auto 6.6 % (3-14); Neutrophils Absolute Auto 3600 /uL (1500-7000); Neutrophils Percent Auto 63.4 % (50-75); Platelet Count 257 X10^3/uL (150-400); Red Blood Cell Count 3.92 X10^6/uL (4.5-5.9); Red Cell Distribution Width 14.3 % (11.6-14.8); White Blood Cell Count 5.6 X10^3/uL (4.5-11.0)
[2021-08-04 06:36] LABS: BUN Creatinine Ratio 31.5 (6-22); Blood Urea Nitrogen 23 mg/dL (9-20); Calcium 8.8 mg/dL (8.4-10.2); Carbon Dioxide 29 mmol/L (22-32); Chloride 105 mmol/L (98-107); Estimated Glomerular Filt Rate > 60.0 mL/min (>60); Glucose 110 mg/dL (80-110); HEMOLYSIS < 15 (0-50); Potassium 3.9 mmol/L (3.4-5.1); Sodium 136 mmol/L (137-145)
[2021-08-04 07:27] VITALS: BP 155/97; PULSE 85; RESP 15; TEMP 37; O2SAT 98
--- NOTE | 2021-08-04 07:48 | PM.PN.1 ---
Subjective Subjective Date Patient Seen: 08/04/21 Interval history: He is seen in his room here on 08/04/21. He tells me that he lives in his car here in the hospital parking lot. The hip fracture was not actually treated during this admission but was a few weeks ago. He seems agreeable or least more agreeable now to a retirement facility placement instead of returning to the car given how weak he has become. He has no left hip tenderness. His hemoglobin is 12.8 with a normal BMP. The blood pressure is high at 155/97. Exam Vital Signs (past 8 hours): - 08/04/21 07:27 Temperature 98.6 F Pulse Rate 85 Respiratory Rate 15 Blood Pressure 155/97 H Pulse Oximetry 98 Oxygen Delivery Method Room Air Oxygen Flow Rate 0 Narrative Exam Narrative: He is alert and oriented x3. He is in no apparent distress Heart is regular rate and rhythm without murmur Lungs are clear to auscultation bilaterally Extremities have no ankle edema There is no left hip tenderness. Objective Labs Result Diagrams: 08/04/21 05:53 08/04/21 05:53 Labs: Laboratory Results - last 24 hr 08/04/21 08/04/21 05:53 05:53 WBC 5.6 RBC 3.92 L Hgb 12.8 L Hct 37.9 L MCV 96.6 MCH 32.5 MCHC 33.6 RDW 14.3 Plt Count 257 Neut % (Auto) 63.4 Lymph % (Auto) 25.5 [place] % (Auto) 6.6 Eos % (Auto) 3.4 Baso % (Auto) 1.1 Neut # (Auto) 3600 Lymph # (Auto) 1400 [place] # (Auto) 400 Eos # (Auto) 200 Baso # (Auto) 100 Sodium 136 L Potassium 3.9 Chloride 105 Carbon Dioxide 29 BUN 23 H Creatinine 0.73 Estimated GFR > 60.0 BUN/Creatinine Ratio 31.5 H Glucose 110 Calcium 8.8 PFSH Medical History Cellulitis of left leg Congestive heart failure Elevated troponin Essential hypertension Hypertension Surgical History No pertinent past surgical history Family History Mother Hypertension Sister Hypertension Social History household members: none housing: other occupational status: unemployed Smoking Status: Current every day smoker alcohol intake: current additional social history: Lives in a hotel Assessment & Plan Assessment & Plan narrative: Rayo Estrada was readmitted for profound weakness, malnutrition, and failure to thrive in the setting of chronic homelessness and secondary to a less than 30 day history of a left-sided hip surgery. 1. Severe weakness, acute, probably related to UTI Patient has been seen by social work and states he is agreeable to being housed in a rehab setting for the moment, though this may be quite difficult with his social situation Physical therapy is assessing him daily. 2. Urinary tract infection in the setting of chronic urinary retention, acute, present on admission This urinary tract infection is related to the patient's outpatient francis catheter which was changed shortly after admission. New Francis bag was attached however the Francis itself was not changed in the ED, so was changed 08/02 on the medical floor. Now started on flomax, attempt trial of voiding just a minute illness [place] [facility] Dr. garces when they put the counter and a a been weight bowel AF the I always get ahead of the gear repair supervisor in the 9 and a mention to it no 1000 acute altered acute a tomorrow. He has been restarted on ceftriaxone IV 1 g daily. UA grossly positive but culture negative. Continue antibiotics for 7 day course of complicated UTI. 3. Severe Acute on Chronic Protein Calorie Malnutrition appreciate dietary recommendations 4. Chronic diastolic heart failure Patient is currently not taking prescribed antihypertensives but does take aspirin 81 mg p.o. daily. Restart medications. Patient had an echocardiogram done approximately in April of 2020 and his EF was 55-60% Dispo: Rehab/SNF if possible. Code status: Full Code as discussed with the patient who identifies friend Aric as his surrogate and POA. Time Spent With Patient Critical Care time: I spent a total of [] minutes of critical care time on this patient's care today; this time is exclusive of procedural time. Quality VTE Deep Vein Thrombosis/Pulmonary Embolism Present on Admission: No
[2021-08-04 08:51] VITALS: BP 155/97; PULSE 72
[2021-08-04] MEDS: ENOXAPARIN 40 MG/0.4 ML SYRINGE SUBCUT (08:51)
[2021-08-04] MEDS: METOPROLOL ER 25 MG TABLET PO ×2 (08:51→21:19)
[2021-08-04] MEDS: ASPIRIN EC 81 MG TABLET PO ×2 (08:52→21:19)
[2021-08-04] MEDS: TAMSULOSIN 0.4 MG CAPSULE PO (08:52)
--- NOTE | 2021-08-04 08:58 | PC.NURSE ---
aWake sitting up in bed for breakfast, noted loose unprod cough ra 97% denies sob, denies pain, francis patent draining drk yellow clear urine. call light within reach bed alarmed
--- NOTE | 2021-08-04 10:32 | CM.DPC ---
DCP Cont: Pt remains with francis cath and unclear from RN if any attempts made to discontinue to determine if pt continues to have urinary retention. Per PT/OT, pt remains 2PA at this time and recommending SNF rehab as not safe for independent ambulation. Pt has AARP MCR and Medicaid culp/food assist and now LTC application are both in process now. SNFs: [facility]- declines [facility]- declines [facility]- declines [facility]- declines [facility]- reviewing [facility]- reviewing, no openings until mid week, but willing to consider since LTC yoana now completed. [facility]: [facility]- not taking new referrals [facility]- not taking new referrals [facility]- left multiple msgs [facility]- reviewing, may have openings mid week and would request clinicals at that time. [facility] SNF's: [facility]- left msg and faxed clinicals [facility]- spoke to admissions on pt status and faxed clinicals and they are willing to review. [facility]- spoke to w/e admissions on pt status and faxed clinicals as they are willing to review but cannot accept over the w/e and will not have an answer until likely Fri. If pt remains here for a few days, may be beneficial to attempt to get pt Established with a PCP under his insurance. Plan: SW to follow closely for [facility], [facility], [facility], [facility], [facility], and [facility] bed review and calling Medicaid on Friday to determine if any progress in processing pt's LTC Medicaid yoana. JACK Wiley
--- NOTE | 2021-08-04 11:05 | PT-IP ANOTE ---
Attempted to see pt at 11:05, pt adamantly refused stating he is too tired to participate with PT.
[2021-08-04 11:59] VITALS: BP 140/87; PULSE 78; RESP 18; TEMP 36.9; O2SAT 98
--- NOTE | 2021-08-04 13:43 | PT.IPTN ---
Current Diagnoses Weakness (07/31/21) Physical Therapy Treatment Note M2 PT-IP Current Condition Start: 08/01/21 11:58 Freq: NEEDED Status: Active Protocol: Document 08/01/21 10:40 [facility] (Rec: 08/01/21 12:15 AB [id number]) Physical Therapy Current Condition Current Condition Evaluation Date 08/01/21 Treatment Diagnosis UTI; H/O L TAN posterior (06/25); difficulty in walking Onset Date 07/31/21 M3 PT-IP Subjective Start: 08/01/21 11:58 Freq: NEEDED Status: Active Protocol: Document 08/04/21 13:14 [facility] (Rec: 08/04/21 13:59 [facility] [id number]) Subjective Physical Therapy Visit Type Type Treatment Note Visit Start Time 13:14 Visit Stop Time 13:43 Total Visit Minutes 29 Number of EXHIBITOR SALES Visits 3 Physical Therapy Visit Comments Patient Comments Co-treat w/ OT M4 PT-IP Mobility and Gait Start: 08/01/21 11:58 Freq: NEEDED Status: Active Protocol: Document 08/04/21 13:14 [facility] (Rec: 08/04/21 13:59 [facility] [id number]) PT-Bed Mobility Assessment Supine to Sit Supine to Sit Maximum Assistance,2 Person Assistance,Head of Bed Elevated,Bedrails Sit to Supine Sit to Supine Maximum Assistance,2 Person Assistance,Head of Bed Elevated,Bedrails Scooting Scooting to Edge of Bed Maximum Assistance Scooting Up and Down in Bed Maximum Assistance PT-Transfer Assessment Sit to and From Stand Sit to and from Stand Moderate Assistance,2 Person Assistance,Use of Upper Extremities Equipment Transfer Assistive Device Gait Belt,Front Wheeled Walker Orthotic/Prosthetic Devices or Brace: No Transfers Transfer Destination Bed Transfer Technique sit<>stand Transfer Ability Level of Assist Maximum Assistance,2 Person Assistance,Use of Upper Extremities Comments Mobility Comments Pt in bed upon arrival from therapy and agreeable to try transfer to chair. Max A x2 for sup<>sit and scooting EOB. Pt unable to maintain seated balance and has heavy posterior lean requiring Max A and max cues to sit upright. Pt can occasionaly hold on to bed or chair for trunk support but unable to maintain w/o support. Planned to attempt stand step pivot transfer to chair, Mod A x2 for sit<>stand w/ FWW. Min A to maintain standing w/ FWW. Pt unable to elevate feet to take steps. Pt stood fro ~20 seconds and then Mod A for stand<>sit. Planned to attempt squat pivot transfer, but pt resists leanging forward and was unable to follow commands. Unable to comeplte squat pivot w/ pts posterior lean and pt became too fatigued. Mod A x2 for sup<>sit and Max A x2 for scooting up/repositioning in bed. Pt left in bed w/ alarm on and all needs in reach. Gait Assessment Comments Gait Comments Not assessed. Unable to take steps. PT-Balance Assessment Sitting Balance and Reactions Static Sitting Balance Ability Poor Dynamic Sitting Balance Ability Poor Standing Balance and Reactions Static Standing Balance Ability Poor Dynamic Standing Balance Ability Poor Device Used FWW M5 PT-IP Objective Assessments Start: 08/01/21 11:58 Freq: NEEDED Status: Active Protocol: Document 08/01/21 10:40 [facility] (Rec: 08/01/21 12:15 AB [id number]) Orientation Orientation/Cognition Level of Alertness Alert Orientation Name Safety Awareness Decreased Safety Awareness Memory Description Short Term Impaired,Check Totaler Impaired Strength Lower Extremity Strength Assessment Bilaterally Impaired Comments Strength Comments RLE: 4-/5 LLE: 3+/5 Muscle Tone Muscle Tone WNL Yes M6 PT-IP Treatment Start: 08/01/21 11:58 Freq: NEEDED Status: Active Protocol: Document 08/04/21 13:14 [place] (Rec: 08/04/21 13:59 [place] [id number]) Physical Therapy Treatment Education Education Provided Precautions,Safety M7 PT-IP Assessment and Plan Start: 08/01/21 11:58 Freq: NEEDED Status: Active Protocol: Document 08/04/21 13:14 [facility] (Rec: 08/04/21 13:59 [facility] [id number]) PT Summary Assessment and Plan Potential Rehabilitation Potential Fair Status of Condition at Evaluation Evolving Summary Impairments Pain,ROM,Strength,Balance, Coordination,Sensation,Tone, Cognition,Bed Mobility, Transfers,Gait,Activity Tolerance Assessment Summary Pt continues to require Max A x2 for bed mobility, Mod A x2 for sit<>stand. Unable to remain upright seated balance w/o assist from therapist, but can sometimes follow cues to use arms/bed rails to sit up. Able to tolerate 20 seconds standing w/ Min A and FWW, but unable to take steps. Not safe or able to do squat pivot transfer due to pts posterior lean and inability to sit upright to provide assistance. Pt seems to have difficulty following cues or processing. Pt will require SNF to improve strength, safety, and functional mobility. [ End ] Goals Bed Mobility Goal Minimal Assistance Transfer Goal Minimal Assistance,Front Wheeled Walker Gait Goal Minimal Assistance,Front Wheel Walker Gait Distance 50 Other Goals improve bed mobility and transfers to CGA improve ambulation usng FWW 100 ft CGA Days to Meet Goals 10 Frequency of Treatment Frequency Of Treatment Once a Day Treatment Plan Physical Therapy Treatment Plan Bed Mobility Training,Transfer Training,Gait Training, Therapeutic Exercise,Balance Retraining,Post Op Education, Discharge Planning,Hot or Cold Pack,Neuromuscular Re-ed, Coordination Retraining,Manual Therapy Precautions Posterior Hip Precautions No Hip Flexion > 90 degrees,No Hip Internal Rotation,No Hip Adduction Other Precautions falls Recommendations To Nursing Amount of Assist Needed Mechanical Lift Discharge Recommendations PT Discharge Recommendations SNF Rehab Transportation Needs at Discharge Wheelchair/Cabulance
--- NOTE | 2021-08-04 13:55 | OT.IP.TRT ---
Current Diagnoses Weakness (07/31/21) Occupational Therapy Treatment Note M2 OT-IP Current Condition Start: 08/01/21 12:18 Freq: Status: Active Protocol: Document 08/01/21 11:35 [facility] (Rec: 08/01/21 12:36 [facility] [id number]) Occupational Therapy Current Condition Current Condition Evaluation Date 08/01/21 Treatment Diagnosis UTI, hx of Left TAN 06/25, decreased mobility Diagnosis Onset Date 07/31/21 Post Operative Precautions Posterior Hip Precautions No Hip Flexion > 90 degrees,No Hip Internal Rotation,No Hip Adduction M3 OT- IP Subjective and Pain Start: 08/01/21 12:18 Freq: Status: Active Protocol: Document 08/04/21 13:45 [facility] (Rec: 08/04/21 13:55 [facility] [id number]) OT- Subjective Occupational Therapy Visit Type Type Treatment Note Visit Start Time 13:17 Visit Stop Time 13:43 Total Visit Minutes 26 Occupational Therapy Visit Comments Patient Comments Able to work with CLINICAL PSYCHOLOGIST LICENSED on bed mobility and standing with pt due to needing extensive assist two person assist for all needs. OT Pain Assessment Pain When Pain Assessed At Rest Pain Present Pain Present Denied Pain M6 OT- IP Functional Cognition Start: 08/01/21 12:18 Freq: Status: Active Protocol: Document 08/04/21 13:45 [facility] (Rec: 08/04/21 13:55 [facility] [id number]) Cognitive Factors Limiting Selfcare Function Cognitive Ability Level of Alertness Alert Patient Orientation Name,Place,Situation Attention Span Ability Capable of Focused Attention, Capable of Sustained Attention Ability to Follow Commands Able to Follow One Step Commands with Increased Time, Able to Follow One Step Commands with Repetition Safety Awareness Decreased Recall of Precautions,Decreased Ability to Apply Precautions, Underestimates Need for Assistance Cognitive Comments Cognitive Assessment Comments Pt still having difficulty to follow directions especially while seated. Pt has poor awareness of midline while seated and actually worse then when standing. M7 OT- IP Mobility and Balance Start: 08/01/21 12:18 Freq: Status: Active Protocol: Document 08/04/21 13:45 [facility] (Rec: 08/04/21 13:55 [facility] [id number]) OT- Bed Mobility Assessment Supine to Sit Supine to Sit Assist Maximum Assistance,2 Person Assistance Sit to Supine Sit to Supine Assist Maximum Assistance,Total Assistance,1 Person Assistance OT-Transfer Assessment Sit to and From Stand Sit to and from Stand Moderate Assistance,2 Person Assistance Comments Mobility Comments MAXA x2 for bed mobility needs , pt doing well to initially move his legs off of the bed and then needing heavy assist of the green pad to get his hips to the edge of the bed and also assist to get his trunk upright . Pt able to stand from high bed with MODA X 2 to FWW for 20 seconds and not able to coordinate his movements to be able to move his feet. Therefore got pt back to bed. OT- Gait Assessment Comments Gait Ability Comments Not at this time. OT- Balance Assessment Sitting Balance and Reactions Static Sitting Balance Ability Poor Dynamic Sitting Balance Ability Poor Standing Balance and Reactions Static Standing Balance Ability Poor Comments Other Balance Tests/Deviations/Treatment Poor siting balance, pt then : to try to grab out and reach for object while seated. M8 OT- IP Objective Assessments Start: 08/01/21 12:18 Freq: Status: Active Protocol: Document 08/01/21 11:35 [facility] (Rec: 08/01/21 12:36 [facility] [id number]) OT Gross Range of Motion Upper Extremity Range of Motion ROM Impairments grossly WFL OT Strength Comments Strength Comments BUE 4-/5 OT-Muscle Tone Assessment Muscle Tone WNL Yes M9 OT- IP Assessment and Plan Start: 08/01/21 12:18 Freq: Status: Active Protocol: Document 08/04/21 13:45 [facility] (Rec: 08/04/21 13:55 [facility] [id number]) OT Summary Assessment and Plan Potential Rehabilitation Potential Fair Analytic Complexity at Evaluation Moderate Summary OT Impairments Pain,Strength,Balance, Functional Cognition, Functional Mobility,Grooming, Dressing,Toileting,Bathing, Toilet Transfers,Shower Transfers,Activity Tolerance Progress Towards Goals Slow Progress due to Pain,Slow Progress due to Medical Issues,Slow Progress due to Activity Tolerance,Slow Progress due to Cognition Assessment Summary Pt agreeable to do therapy but still having poor initiation of movement and awareness of body positioning and midline. Pt will need extensive skilled rehab. Goals Grooming Goal Independent Dressing Goal Independent Toileting Goal Independent Bathing Goal Independent Toilet Transfer Goal Independent Shower Transfer Goal Independent Patient/Caregiver Education Goal Demonstrate Post-Op Precautions Days to Meet Goals 40 Frequency of Treatment Frequency Of Treatment Once a Day Treatment Plan OT Treatment Plan ADL Training,Functional Cognition Training,Functional Mobility,Patient/Family Education,Discharge Planning Other Treatment Recommendations and Next MAX A X2 to [facility] with FWW. Treatment Focus Discharge Recommendations OT Discharge Recommendations SNF Rehab Transportation Needs at Discharge Wheelchair/Cabulance
[2021-08-04 16:35] VITALS: BP 128/85; PULSE 87; RESP 16; TEMP 37.1; O2SAT 97
[2021-08-04 20:17] VITALS: BP 129/92; PULSE 92; RESP 18; TEMP 36.7; O2SAT 94
[2021-08-04 21:19] VITALS: BP 139/87; PULSE 83
[2021-08-05] MEDS: cefTRIAXone 1,000 MG in SODIUM CHLORIDE 0.9% 100 ML 200 ML IV ×2 (00:02→22:39)
[2021-08-05 06:27] LABS: Add Manual Diff / Slide Review NO; Basophils Absolute Auto 100 /uL (0-100); Basophils Percent Auto 1.2 % (0-2); Eosinophils Absolute Auto 300 /uL (0-450); Eosinophils Percent Auto 4.2 % (2-4); Hematocrit 38.8 % (41-53); Lymphocytes Absolute Auto 1200 /uL (1100-4500); Lymphocytes Percent Auto 20.3 % (25-40); Mean Corpuscular HGB Conc 33.4 % (30-36); Mean Corpuscular Hemoglobin 32.2 PG (26-34); Mean Corpuscular Volume 96.3 fL (80-100); Monocytes Absolute Auto 400 /uL (0-900); Monocytes Percent Auto 6.3 % (3-14); Neutrophils Absolute Auto 4100 /uL (1500-7000); Platelet Count 292 X10^3/uL (150-400); Red Blood Cell Count 4.02 X10^6/uL (4.5-5.9); Red Cell Distribution Width 14.2 % (11.6-14.8); White Blood Cell Count 6.1 X10^3/uL (4.5-11.0)
[2021-08-05 06:37] LABS: BUN Creatinine Ratio 32.8 (6-22); Blood Urea Nitrogen 22 mg/dL (9-20); Calcium 8.6 mg/dL (8.4-10.2); Carbon Dioxide 28 mmol/L (22-32); Chloride 106 mmol/L (98-107); Estimated Glomerular Filt Rate > 60.0 mL/min (>60); Glucose 109 mg/dL (80-110); HEMOLYSIS < 15 (0-50); Potassium 3.8 mmol/L (3.4-5.1); Sodium 137 mmol/L (137-145)
[2021-08-05 07:54] VITALS: BP 160/96; PULSE 70; RESP 14; TEMP 36.2; O2SAT 96
[2021-08-05 10:22] VITALS: BP 160/96
[2021-08-05] MEDS: TAMSULOSIN 0.4 MG CAPSULE PO (10:22)
[2021-08-05] MEDS: METOPROLOL ER 25 MG TABLET PO ×2 (10:22→20:46)
[2021-08-05] MEDS: ASPIRIN EC 81 MG TABLET PO ×2 (10:23→20:46)
[2021-08-05] MEDS: ENOXAPARIN 40 MG/0.4 ML SYRINGE SUBCUT (10:23)
[2021-08-05 11:32] VITALS: BP 132/90; PULSE 78; RESP 16; TEMP 36; O2SAT 98
--- NOTE | 2021-08-05 13:41 | PT.IPTN ---
Current Diagnoses Weakness (07/31/21) Physical Therapy Treatment Note M2 PT-IP Current Condition Start: 08/01/21 11:58 Freq: NEEDED Status: Active Protocol: Document 08/01/21 10:40 [facility] (Rec: 08/01/21 12:15 [facility] [id number]) Physical Therapy Current Condition Current Condition Evaluation Date 08/01/21 Treatment Diagnosis UTI; H/O L TAN posterior (06/25); difficulty in walking Onset Date 07/31/21 M3 PT-IP Subjective Start: 08/01/21 11:58 Freq: NEEDED Status: Active Protocol: Document 08/05/21 13:21 [facility] (Rec: 08/05/21 13:41 [facility] [id number]) Subjective Physical Therapy Visit Type Type Treatment Note Visit Start Time 13:03 Visit Stop Time 13:20 Total Visit Minutes 17 Number of INVESTMENT FUND MANAGER Visits 4 Physical Therapy Visit Comments Patient Comments Co-tx with nursing M4 PT-IP Mobility and Gait Start: 08/01/21 11:58 Freq: NEEDED Status: Active Protocol: Document 08/05/21 13:21 LJ (Rec: 08/05/21 13:41 [facility] [id number]) PT-Bed Mobility Assessment Supine to Sit Supine to Sit Moderate Assistance,2 Person Assistance,Head of Bed Elevated,Bedrails Sit to Supine Sit to Supine Minimal Assistance,2 Person Assistance,Bedrails Scooting Scooting to Edge of Bed Maximum Assistance Scooting Up and Down in Bed Minimal Assistance PT-Transfer Assessment Sit to and From Stand Sit to and from Stand Moderate Assistance,2 Person Assistance,Use of Upper Extremities Equipment Transfer Assistive Device Gait Belt,Front Wheeled Walker Orthotic/Prosthetic Devices or Brace: No Transfers Transfer Destination Bed Transfer Technique sit<>stand Transfer Ability Level of Assist Maximum Assistance,2 Person Assistance,Use of Upper Extremities Comments Mobility Comments Pt in bed upon arrival willing to attempt to sit in chair. ModA x2 for sitting up in bed with HOB elevated and use of bedrails. Pt required assist x2 with coming to a complete sitting position d/t posterior lean. Required assist of one to scoot to edge of bed while CARTRIDGE BELT PUNCHER guarded from behind. Pt able to maintain seated balance with cues to lean forward and uae UEs. Pt required ModA x2 for sit>stand using belt and FWW. Pt attempting to push FWW away and use chair rails and bed rails instead. Pt performed 4 sit<>stands with ModA x2 for the first three then ModA x1 for the last one. Pt stood first time for ~20 sec then sat back in bed. Second time pt able to stand for ~45 sec but unable to maintain full upright standing. Flexed trunk and bent elbows. Pt sat down again. Third time pt attempted to shuffle feet toward chair but unable to lift right feet to move or shuffle them. Pt sat back in bed and was able to position himself in bed with An x1. Pt was left in bed with nursing in attendance . Gait Assessment Comments Gait Comments Not assessed. Unable to take steps. PT-Balance Assessment Sitting Balance and Reactions Static Sitting Balance Ability Poor Dynamic Sitting Balance Ability Poor Standing Balance and Reactions Static Standing Balance Ability Poor Dynamic Standing Balance Ability Poor Device Used FWW M5 PT-IP Objective Assessments Start: 08/01/21 11:58 Freq: NEEDED Status: Active Protocol: Document 08/01/21 10:40 [facility] (Rec: 08/01/21 12:15 [facility] [id number]) Orientation Orientation/Cognition Level of Alertness Alert Orientation Name Safety Awareness Decreased Safety Awareness Memory Description Short Term Impaired,Roper Operator Impaired Strength Lower Extremity Strength Assessment Bilaterally Impaired Comments Strength Comments RLE: 4-/5 LLE: 3+/5 Muscle Tone Muscle Tone WNL Yes M6 PT-IP Treatment Start: 08/01/21 11:58 Freq: NEEDED Status: Active Protocol: Document 08/05/21 13:21 [facility] (Rec: 08/05/21 13:41 [id number]) Physical Therapy Treatment Education Education Provided Precautions,Safety Other Treatments Other Treatment Performed seated [id number] M7 PT-IP Assessment and Plan Start: 08/01/21 11:58 Freq: NEEDED Status: Active Protocol: Document 08/05/21 13:21 LJ (Rec: 08/05/21 13:41 [facility] [id number]) PT Summary Assessment and Plan Potential Rehabilitation Potential Fair Status of Condition at Evaluation Evolving Summary Impairments Pain,ROM,Strength,Balance, Coordination,Sensation,Tone, Cognition,Bed Mobility, Transfers,Gait,Activity Tolerance Assessment Summary Pt requiring a little less assist with bed mobility but remains MaxA for sit>stand. Seated balance has improved slightly also. Following directions but unable to push his upper body up with his arms to remain standing tall holding onto the walker. Pt has tendenancy to push FWW away and try to use rails of bed and chair to transfer to the chair. Pt will need SNF to improve his strength, safety awareness, and mobility prior to being discharged to live iin his car. Goals Bed Mobility Goal Minimal Assistance Transfer Goal Minimal Assistance,Front Wheeled Walker Gait Goal Minimal Assistance,Front Wheel Walker Gait Distance 50 Other Goals improve bed mobility and transfers to CGA improve ambulation usng FWW 100 ft CGA Days to Meet Goals 10 Frequency of Treatment Frequency Of Treatment Once a Day Treatment Plan Physical Therapy Treatment Plan Bed Mobility Training,Transfer Training,Gait Training, Therapeutic Exercise,Balance Retraining,Post Op Education, Discharge Planning,Hot or Cold Pack,Neuromuscular Re-ed, Coordination Retraining,Manual Therapy Other Recommendations and Next Treatment bed mob, LE ex, precautions, Focus transfers, increase gait as able. Precautions Posterior Hip Precautions No Hip Flexion > 90 degrees,No Hip Internal Rotation,No Hip Adduction Other Precautions falls Recommendations To Nursing Amount of Assist Needed Total Assistance Discharge Recommendations PT Discharge Recommendations SNF Rehab Transportation Needs at Discharge Wheelchair/Cabulance
[2021-08-05 16:24] VITALS: BP 136/89; PULSE 88; RESP 16; TEMP 36.2; O2SAT 97
--- NOTE | 2021-08-05 17:11 | PM.PN.1 ---
Subjective Subjective Date Patient Seen: 08/05/21 Interval history: Patient has no new complaints or changing symptoms. Awaiting placement. Exam Vital Signs (past 8 hours): - 08/05/21 10:22 08/05/21 11:32 08/05/21 16:24 Temperature 96.8 F L 97.2 F L Pulse Rate 78 88 Respiratory Rate 16 16 Blood Pressure 160/96 H 132/90 136/89 Pulse Oximetry 98 97 Oxygen Delivery Method Room Air Oxygen Flow Rate 0 Narrative Exam Narrative: General: Alert and pleasant and cooperative, NAD Objective Labs Result Diagrams: 08/05/21 06:05 08/05/21 06:05 Labs: Laboratory Results - last 24 hr 08/05/21 08/05/21 06:05 06:05 WBC 6.1 RBC 4.02 L Hgb 13.0 L Hct 38.8 L MCV 96.3 MCH 32.2 MCHC 33.4 RDW 14.2 Plt Count 292 Neut % (Auto) 68.0 Lymph % (Auto) 20.3 L Randall % (Auto) 6.3 Eos % (Auto) 4.2 H Baso % (Auto) 1.2 Neut # (Auto) 4100 Lymph # (Auto) 1200 Randall # (Auto) 400 Eos # (Auto) 300 Baso # (Auto) 100 Sodium 137 Potassium 3.8 Chloride 106 Carbon Dioxide 28 BUN 22 H Creatinine 0.67 Estimated GFR > 60.0 BUN/Creatinine Ratio 32.8 H Glucose 109 Calcium 8.6 PFSH Medical History Cellulitis of left leg Congestive heart failure Elevated troponin Essential hypertension Hypertension Surgical History No pertinent past surgical history Family History Mother Hypertension Sister Hypertension Social History household members: none housing: other occupational status: unemployed Smoking Status: Current every day smoker alcohol intake: current additional social history: Lives in a hotel Assessment & Plan Assessment & Plan narrative: Rayo Estrada was readmitted for profound weakness, malnutrition, and failure to thrive in the setting of chronic homelessness and secondary to a less than 30 day since last hospital discharge for hip fracture 1. Severe weakness, acute, probably related to UTI, also status post left hip unipolar 06/25/2021 Patient has been seen by social work and states he is agreeable to being housed in a rehab setting for the moment, though this may be quite difficult with his social situation Physical therapy is assessing him daily. 2. Urinary tract infection in the setting of chronic urinary retention, acute, present on admission This urinary tract infection is related to the patient's outpatient francis catheter which was changed shortly after admission. New Francis bag was attached however the Francis itself was not changed in the ED, so was changed 08/02 on the medical floor. Continue tamsulosin 0.4 mg q.d. He has been restarted on ceftriaxone IV 1 g daily. UA grossly positive but culture negative. Continue antibiotics for 7 day course through 08/06/21 for complicated UTI. 3. Severe Acute on Chronic Protein Calorie Malnutrition appreciate dietary recommendations 4. Chronic diastolic heart failure Patient is currently not taking prescribed antihypertensives but does take aspirin 81 mg p.o. daily. Patient had an echocardiogram done approximately in April of 2020 and his EF was 55-60% 5. Chronic atrial fibrillation Continue metoprolol ER 25 mg b.i.d. Adequately rate controlled on low-dose metoprolol provided here Dispo: Rehab/SNF Time Spent With Patient Critical Care time: I spent a total of [] minutes of critical care time on this patient's care today; this time is exclusive of procedural time. Quality VTE Deep Vein Thrombosis/Pulmonary Embolism Present on Admission: No
[2021-08-05 19:00] VITALS: BP 142/100; PULSE 93; RESP 21; TEMP 36.9; O2SAT 97
[2021-08-05 20:46] VITALS: BP 138/90; PULSE 81
[2021-08-05] MEDS: SODIUM CHLORIDE 0.9% FLUSH 10 ML IV ×2 (20:46→22:39)
--- NOTE | 2021-08-05 22:23 | PC.NURSE ---
Patient is alert but only able to state name, birthdate, place and situation; identified age as 63, month as October, day of , day of week Friday and year as 2000. Breath sounds CTA with RA sat of 97%. HRR. BP elevated initially at 142/100 and then just before Metoprolol given was 138/90. BT present and abdomen is soft; no documented BM since 07/31. Indwelling catheter is patent; urine is clear pati. Needs assistance to turn but wants to lie only on back. Denies pain. Fall risk score is high and bed alarm is activated. Remains on fluid restriction.
[2021-08-05] MEDS: SODIUM CHLORIDE 0.9% 250 ML 21 ML IV (22:39)
[2021-08-06 07:30] VITALS: BP 143/101; PULSE 82; RESP 18; TEMP 36.9; O2SAT 98
[2021-08-06] MEDS: ENOXAPARIN 40 MG/0.4 ML SYRINGE SUBCUT (09:12)
[2021-08-06] MEDS: METOPROLOL ER 25 MG TABLET PO ×2 (09:13→21:11)
[2021-08-06] MEDS: ASPIRIN EC 81 MG TABLET PO ×2 (09:13→21:11)
[2021-08-06] MEDS: TAMSULOSIN 0.4 MG CAPSULE PO (09:13)
[2021-08-06] MEDS: SODIUM CHLORIDE 0.9% FLUSH 10 ML IV ×4 (09:13→23:07)
--- NOTE | 2021-08-06 10:25 | PT-IP ANOTE ---
Pt requesting PM treatment, will try again this afternoon.
--- NOTE | 2021-08-06 11:40 | OT.IP.TRT ---
Current Diagnoses Weakness (07/31/21) Occupational Therapy Treatment Note M2 OT-IP Current Condition Start: 08/01/21 12:18 Freq: Status: Active Protocol: Document 08/01/21 11:35 [facility]3] (Rec: 08/01/21 12:36 [facility]3] [id number]) Occupational Therapy Current Condition Current Condition Evaluation Date 08/01/21 Treatment Diagnosis UTI, hx of Left TAN 06/25, decreased mobility Diagnosis Onset Date 07/31/21 Post Operative Precautions Posterior Hip Precautions No Hip Flexion > 90 degrees,No Hip Internal Rotation,No Hip Adduction M3 OT- IP Subjective and Pain Start: 08/01/21 12:18 Freq: Status: Active Protocol: Document 08/06/21 13:00 [facility]3] (Rec: 08/06/21 13:17 [facility]3] [id number]) OT- Subjective Occupational Therapy Visit Type Type Treatment Note Visit Start Time 11:15 Visit Stop Time 11:40 Occupational Therapy Visit Comments Patient Comments Pt refuse in AM to get up and states to try to get up after lunch. Able to work with UNDERWRITING SPECIALIST due to pt needing extensive assist for bed mobility needs. OT Pain Assessment Pain When Pain Assessed At Rest Pain Present Pain Present Denied Pain M4 OT- IP ADL's Start: 08/01/21 12:18 Freq: Status: Active Protocol: Document 08/06/21 13:00 [facility]3] (Rec: 08/06/21 13:17 [facility]3] [id number]) OT ADL-Grooming Comments OT Grooming Comments Pt states did earlier. OT ADL-Oral Care Comments Oral Care Comments Pt states did earlier. OT ADL-Dressing General Eval Upper Body Dressing Ability Moderate Assistance Lower Body Dressing Ability Total Assistance Areas Needing Assistance Socks Comments OT Dressing Comments Assist to help put a larger gown on. Total assist for socks. OT ADL-Toileting General Evaluation Toileting Ability Total Assistance Comments OT Toileting Comments Arredondo in place. OT ADL-Bathing Comments OT Bathing Comments Sponge bath more appropriate at this time. M6 OT- IP Functional Cognition Start: 08/01/21 12:18 Freq: Status: Active Protocol: Document 08/06/21 13:00 [facility]3] (Rec: 08/06/21 13:17 [facility]3] [id number]) Cognitive Factors Limiting Selfcare Function Cognitive Comments Cognitive Assessment Comments Pt decreased initiation at times. Pt has difficulty to following directions and easily distracted. Pt able to recall 1/3 hip precautions. M7 OT- IP Mobility and Balance Start: 08/01/21 12:18 Freq: Status: Active Protocol: Document 08/06/21 13:00 [facility]3] (Rec: 08/06/21 13:17 [facility]3] [id number]) OT- Bed Mobility Assessment Supine to Sit Supine to Sit Assist Maximum Assistance,2 Person Assistance Sit to Supine Sit to Supine Assist Standby Assistance OT-Transfer Assessment Sit to and From Stand Sit to and from Stand Maximum Assistance,2 Person Assistance Comments Mobility Comments Pt level of assist varies throughout the task. Pt overall needing MAX AX2 to sit to the edge of the bed however from sit to supine able to get in on his own. Pt needing assist to help keep his knee bend together and able to assist to scoot himself up in the bed. Pt able to stand with MAX AX 2 with FWW x2. Pt not able to take any steps as this time. OT- Balance Assessment Sitting Balance and Reactions Static Sitting Balance Ability Fair Dynamic Sitting Balance Ability Poor Standing Balance and Reactions Static Standing Balance Ability Poor Comments Other Balance Tests/Deviations/Treatment Pt heavily leans to the left : and postierly tilt and had pt stretch on his right elbow and afterwards pt able t sit to midline better. Also after giving him cues to use his abdominal muscle able to sit with SBA for short period of time in addition to use of bed rail to assist, otherwise pt tends to lean laterally and posteriorly. M8 OT- IP Objective Assessments Start: 08/01/21 12:18 Freq: Status: Active Protocol: Document 08/01/21 11:35 [facility]3] (Rec: 08/01/21 12:36 [facility]3] [id number]) OT Gross Range of Motion Upper Extremity Range of Motion ROM Impairments grossly WFL OT Strength Comments Strength Comments BUE 4-/5 OT-Muscle Tone Assessment Muscle Tone WNL Yes M9 OT- IP Assessment and Plan Start: 08/01/21 12:18 Freq: Status: Active Protocol: Document 08/06/21 13:00 [facility]3] (Rec: 08/06/21 13:17 [facility]3] [id number]) OT Summary Assessment and Plan Potential Rehabilitation Potential Fair Analytic Complexity at Evaluation Moderate Summary OT Impairments Pain,Strength,Balance, Functional Cognition, Functional Mobility,Grooming, Dressing,Toileting,Bathing, Toilet Transfers,Shower Transfers,Activity Tolerance Progress Towards Goals Slow Progress due to Pain,Slow Progress due to Medical Issues,Slow Progress due to Activity Tolerance,Slow Progress due to Cognition Assessment Summary Pt level of assist varies for mobility needs which is affected by pt's initiation, possible motivation and ability to understand what is needed to be completed. Pt will benefit from extensive skilled rehab versus LTC. Goals Grooming Goal Independent Dressing Goal Independent Toileting Goal Independent Bathing Goal Independent Toilet Transfer Goal Independent Shower Transfer Goal Independent Patient/Caregiver Education Goal Demonstrate Post-Op Precautions Days to Meet Goals 40 Frequency of Treatment Frequency Of Treatment Once a Day Treatment Plan OT Treatment Plan ADL Training,Functional Cognition Training,Functional Mobility,Patient/Family Education,Discharge Planning Other Treatment Recommendations and Next MAX A X2 to [facility] with FWW. Treatment Focus Discharge Recommendations OT Discharge Recommendations SNF Rehab Transportation Needs at Discharge Wheelchair/Cabulance
--- NOTE | 2021-08-06 12:40 | PT.IPTN ---
Current Diagnoses Weakness (07/31/21) Physical Therapy Treatment Note M2 PT-IP Current Condition Start: 08/01/21 11:58 Freq: NEEDED Status: Active Protocol: Document 08/01/21 10:40 AB (Rec: 08/01/21 12:15 AB [id number]) Physical Therapy Current Condition Current Condition Evaluation Date 08/01/21 Treatment Diagnosis UTI; H/O L TAN posterior (06/25); difficulty in walking Onset Date 07/31/21 M3 PT-IP Subjective Start: 08/01/21 11:58 Freq: NEEDED Status: Active Protocol: Document 08/06/21 12:15 KS (Rec: 08/06/21 13:28 KS [id number]) Subjective Physical Therapy Visit Type Type Treatment Note Visit Start Time 12:15 Visit Stop Time 12:40 Total Visit Minutes 25 Number of TEST DESK SUPERVISOR Visits 5 Physical Therapy Visit Comments Patient Comments Co-treat w/ OT M4 PT-IP Mobility and Gait Start: 08/01/21 11:58 Freq: NEEDED Status: Active Protocol: Document 08/06/21 12:15 KS (Rec: 08/06/21 13:28 KS [id number]) PT-Bed Mobility Assessment Supine to Sit Supine to Sit Maximum Assistance,2 Person Assistance,Head of Bed Elevated,Bedrails Sit to Supine Sit to Supine Contact Guard Assistance, Minimal Assistance,Bedrails Scooting Scooting to Edge of Bed Maximum Assistance Scooting Up and Down in Bed Standby Assistance PT-Transfer Assessment Sit to and From Stand Sit to and from Stand Moderate Assistance,Maximum Assistance,2 Person Assistance ,Use of Upper Extremities Equipment Transfer Assistive Device Gait Belt,Front Wheeled Walker Orthotic/Prosthetic Devices or Brace: No Transfers Transfer Destination Bed Transfer Technique sit<>stand Transfer Ability Level of Assist Maximum Assistance,2 Person Assistance,Use of Upper Extremities Comments Mobility Comments Pt in bed upon arrival from PT and OT. Able to recall 1/3 precautions (no crossing legs) . Max A x2 for sup<>sit and scooting EOB. Pt continues to have posterior lean and difficulty sitting up straight at some points requiring Mod A but other times SBA w/ use of bed rails. He requires freqeunt cuing for all mobility. Once EOB, pt attempted to sit<>stand x2 w/ Max A x2 but was unable on first attempt and only able to maitain standing ~5 seconds on second attempt following seated lateral lean to stretch L hip, but was still unable to stand upright. Attempted LAQ seated EOB, pt unable to maintain seated balance. Pt laid down back in bed CGA, but needed max cues for repositioning. Pt left in bed w/ all needs in reach. Gait Assessment Comments Gait Comments Not assessed. Unable to take steps. PT-Balance Assessment Sitting Balance and Reactions Static Sitting Balance Ability Poor Dynamic Sitting Balance Ability Poor Standing Balance and Reactions Static Standing Balance Ability Poor Dynamic Standing Balance Ability Poor Device Used FWW M5 PT-IP Objective Assessments Start: 08/01/21 11:58 Freq: NEEDED Status: Active Protocol: Document 08/01/21 10:40 AB (Rec: 08/01/21 12:15 AB [id number]) Orientation Orientation/Cognition Level of Alertness Alert Orientation Name Safety Awareness Decreased Safety Awareness Memory Description Short Term Impaired,Bakery Associate Impaired Strength Lower Extremity Strength Assessment Bilaterally Impaired Comments Strength Comments RLE: 4-/5 LLE: 3+/5 Muscle Tone Muscle Tone WNL Yes M6 PT-IP Treatment Start: 08/01/21 11:58 Freq: NEEDED Status: Active Protocol: Document 08/06/21 12:15 KS (Rec: 08/06/21 13:28 KS [id number]) Physical Therapy Treatment Exercises Exercises Seated Knee Flexion/Extension Education Education Provided Precautions,Safety M7 PT-IP Assessment and Plan Start: 08/01/21 11:58 Freq: NEEDED Status: Active Protocol: Document 08/06/21 12:15 KS (Rec: 08/06/21 13:28 KS [id number]) PT Summary Assessment and Plan Potential Rehabilitation Potential Fair Status of Condition at Evaluation Evolving Summary Impairments Pain,ROM,Strength,Balance, Coordination,Sensation,Tone, Cognition,Bed Mobility, Transfers,Gait,Activity Tolerance Assessment Summary Pt requires varying degrees of assist throughout treatment today. Max A x2 for sup<>sit and scooting EOB. CGA to Mod A to maintain seated balance w/ max cues to engage abdominal muscles and use bed rails and UE to remain upright. Max A x2 for sit<>stand w/ FWW and pt only able to maintain standing 5 seconds today. CGA but max cues for sit<>sup and repositioning in bed. Pt continues to be limited by weakness, low tolerance for activity, and difficulty following directions and will require SNF to improve strength and functional independence. Goals Bed Mobility Goal Minimal Assistance Transfer Goal Minimal Assistance,Front Wheeled Walker Gait Goal Minimal Assistance,Front Wheel Walker Gait Distance 50 Other Goals improve bed mobility and transfers to CGA improve ambulation usng FWW 100 ft CGA Days to Meet Goals 10 Frequency of Treatment Frequency Of Treatment Once a Day Treatment Plan Physical Therapy Treatment Plan Bed Mobility Training,Transfer Training,Gait Training, Therapeutic Exercise,Balance Retraining,Post Op Education, Discharge Planning,Hot or Cold Pack,Neuromuscular Re-ed, Coordination Retraining,Manual Therapy Other Recommendations and Next Treatment bed mob, LE ex, precautions, Focus transfers, increase gait as able. Precautions Posterior Hip Precautions No Hip Flexion > 90 degrees,No Hip Internal Rotation,No Hip Adduction Other Precautions falls Recommendations To Nursing Amount of Assist Needed Total Assistance Discharge Recommendations PT Discharge Recommendations SNF Rehab Transportation Needs at Discharge Wheelchair/Cabulance
[2021-08-06 14:35] VITALS: BP 137/84; PULSE 83
[2021-08-06] MEDS: polyethylene glycoL 3350 17 GM POWD.PACK PO (14:45)
[2021-08-06] MEDS: BISACODYL 5 MG TABLET 10 MG PO (14:45)
[2021-08-06 15:00] VITALS: BP 141/93; PULSE 85; RESP 18; TEMP 37.4; O2SAT 98
--- NOTE | 2021-08-06 15:28 | PC.NURSE ---
Pt denied any pain. francis patent, yellow w/sediment. gave bowel meds and prune juice since last BM was 6 days ago.
--- NOTE | 2021-08-06 15:39 | CM.DPC ---
DCP Ongoing LTC/SNF placement Per MD, pt continues to have some pain per PT/OT and agreeable with getting xrays to determine if pt has any other medical/ortho issues that need to be addressed that are barriers to pt's progress and mobility. Per PT/OT, pt remains 2PA with bed mobility and ambulation and recommend SNF rehab and not safe to d/c alone at this time. HANK called [facility] office ([phone]) to determine pt's application status for LTC and if pt assigned to a CM. [facility] showing pt still as inactive but Point of Contact Jenni Anglin ([phone]) and SW attempted to call Jenni to see if she is still assigned to pt but her VM is full and not accepting messages. SW called [facility] office back to get another email or phone contact for Jenni Anglin or request Regulatory Affairs Analyst contact info as pt is a placement issue from the hospital but had to leave a msg on [facility] office phone requesting call back with this info. SW called [facility] office and they do not show pt as active or in process but pt's LTC application would first go through [facility] not [facility] first. SW called [facility] [place] [place] office and they show that pt's LTC application and [employer]/food assist apps have been received and started to be processed but does not show an assigned worker at this time. SW called following SNF's still reviewing that have not declined acceptance: [facility]- need to confirm pt's LTC application is being processed/pt meets criteria before they could commit to accepting pt since once his [facility] stops covering SNF stay they need Medicaid coverage for his stay. [facility]- concerned about his d/c plan from their facility as they currently do not have any open LTC beds, but will discuss with their licensed sales assistant DNS to determine if they could consider. [facility]- declines pt. [facility] [place] [place] [facility]- left msg on admission phone requesting call back on their review of pt. [facility]- left msg on admission phone requesting call back on their review of pt. [facility] Bed: Are willing to consider pt but awaiting potential openings for bed availability maybe Wed of this week before requesting clinicals to be reviewed. Plan: SW to follow closely for return call/call again to [facility] office to confirm an assigned CM towards pt's barrier of needing LTC Medicaid before SNF/Swing bed willing to accept. JACK Wiley
[2021-08-06] MEDS: ACETAMINOPHEN 325 MG TABLET 650 MG PO (15:52)
--- NOTE | 2021-08-06 17:51 | PM.PN.1 ---
Subjective Subjective Date Patient Seen: 08/06/21 Interval history: Per PT they were concerned patient having significant hip pain. Patient states having only very minimal hip pain. He had follow-up hip x-rays on July 13 which were normal status post unipolar in May. Main thing now is he is very constipated and has not had BM since admission. Exam Vital Signs (past 8 hours): - 08/06/21 14:35 08/06/21 15:00 Temperature 99.3 F Pulse Rate 83 85 Respiratory Rate 18 Blood Pressure 137/84 141/93 H Pulse Oximetry 98 Oxygen Delivery Method Room Air Oxygen Flow Rate 0 Narrative Exam Narrative: General: Alert pleasant and cooperative male in no acute distress Objective Labs Result Diagrams: 08/05/21 06:05 08/05/21 06:05 [facility] Medical History Cellulitis of left leg Congestive heart failure Elevated troponin Essential hypertension Hypertension Surgical History No pertinent past surgical history Family History Mother Hypertension Sister Hypertension Social History household members: none housing: other occupational status: unemployed Smoking Status: Current every day smoker alcohol intake: current additional social history: Lives in a hotel Assessment & Plan Assessment & Plan narrative: Rayo Estrada was readmitted for profound weakness, malnutrition, and failure to thrive in the setting of chronic homelessness and secondary to a less than 30 day since last hospital discharge for hip fracture 1. Severe weakness, acute, possibly related to UTI, also status post left hip unipolar 06/25/2021 Patient has been seen by social work and states he is agreeable to being housed in a rehab setting for the moment, though this may be quite difficult with his social situation Physical therapy is assessing him daily. 2. Urinary tract infection in the setting of chronic urinary retention, acute, present on admission This urinary tract infection is related to the patient's outpatient francis catheter which was changed shortly after admission. New Francis bag was attached however the Francis itself was not changed in the ED, so was changed 08/02 on the medical floor. Continue tamsulosin 0.4 mg q.d. He was restarted on ceftriaxone IV 1 g daily. UA grossly positive but culture negative. Continued antibiotics for 7 day course through 08/06/21 for complicated UTI. 3. Severe Acute on Chronic Protein Calorie Malnutrition appreciate dietary recommendations 4. Chronic diastolic heart failure Patient is currently not taking prescribed antihypertensives but does take aspirin 81 mg p.o. daily. Patient had an echocardiogram done approximately in April of 2020 and his EF was 55-60% 5.? Chronic atrial fibrillation Continue metoprolol ER 25 mg b.i.d. Adequately rate controlled on low-dose metoprolol provided here 6. Constipation -ordered daily MiraLax, oral and rectal Dulcolax as needed Dispo: Rehab/SNF Time Spent With Patient Critical Care time: I spent a total of [] minutes of critical care time on this patient's care today; this time is exclusive of procedural time. Quality VTE Deep Vein Thrombosis/Pulmonary Embolism Present on Admission: No
[2021-08-06 19:20] VITALS: BP 139/73; PULSE 85; RESP 18; TEMP 37; O2SAT 96
[2021-08-06 21:11] VITALS: BP 125/76; PULSE 73
[2021-08-06] MEDS: cefTRIAXone 1,000 MG in SODIUM CHLORIDE 0.9% 100 ML 200 ML IV (23:07)
--- NOTE | 2021-08-06 23:46 | PC.NURSE ---
Patient arouses easily but upset with RN having to do assessment. Could identify name, place and birthdate. Breath sounds diminished at bases but CTA with RA sat of 96%. HR irregular (does have hx of afib). Denied nausea. BT present and states he is passing flatus but has not had a BM since 07/31; did received Dulcolax, Miralax and prune juice on previous shift. Indwelling catheter is patent; urine is dark pati with sediment noted. Assisted patient to reposition; is difficult to move him and patient resists being turned. Began swearing at staff during repositioning. Denied pain at time of assessment and is currently asleep. Fall risk score is high and bed alarm is activated.
[2021-08-07 07:26] VITALS: BP 158/109; PULSE 79; RESP 16; TEMP 36.2; O2SAT 98
[2021-08-07 08:50] VITALS: BP 158/109; PULSE 79
[2021-08-07] MEDS: ASPIRIN EC 81 MG TABLET PO ×2 (08:50→20:46)
[2021-08-07] MEDS: ENOXAPARIN 40 MG/0.4 ML SYRINGE SUBCUT (08:50)
[2021-08-07] MEDS: METOPROLOL ER 25 MG TABLET PO ×2 (08:50→20:46)
[2021-08-07] MEDS: SODIUM CHLORIDE 0.9% FLUSH 10 ML IV ×2 (08:50→20:47)
[2021-08-07] MEDS: TAMSULOSIN 0.4 MG CAPSULE PO (08:50)
[2021-08-07] MEDS: polyethylene glycoL 3350 17 GM POWD.PACK PO (08:50)
[2021-08-07] MEDS: BISACODYL 10 MG SUPP PR (10:14)
--- NOTE | 2021-08-07 11:21 | PT-IP ANOTE ---
Attempted to see pt at 11:20 AM, pt requested treatment to be after lunch.
--- NOTE | 2021-08-07 11:33 | OT.IPNOTE ---
Pt requesting to be be seen in the afternoon for therapy, to check on pt later.
--- NOTE | 2021-08-07 12:13 | P.PN_ITS ---
Subjective Subjective Date Patient Seen: 08/07/21 Time Patient Seen: 08:00 Interval history: Today he has no complaints aside from some constipation. No pain. Exam Vital Signs (past 8 hours): - 08/07/21 07:26 08/07/21 08:50 Temperature 97.2 F L Pulse Rate 79 79 Respiratory Rate 16 Blood Pressure 158/109 H 158/109 H Pulse Oximetry 98 Oxygen Delivery Method Room Air Oxygen Flow Rate 0 Narrative Exam Narrative: General:?Pleasant and cooperative male in no acute distress EXT: minimal pain to palpation of hips Objective Labs Result Diagrams: 08/05/21 06:05 08/05/21 06:05 [facility] Medical History Cellulitis of left leg Congestive heart failure Elevated troponin Essential hypertension Hypertension Surgical History No pertinent past surgical history Family History Mother Hypertension Sister Hypertension Social History household members: none housing: other occupational status: unemployed Smoking Status: Current every day smoker alcohol intake: current additional social history: Lives in a hotel Assessment & Plan Assessment & Plan narrative: 1. Severe weakness, acute, possibly related to UTI, also status post left hip unipolar 06/25/2021 Patient has been seen by social work and states he is agreeable to being housed in a rehab setting for the moment, though this may be quite difficult with his social situation Physical therapy is assessing him daily. 2. Urinary tract infection in the setting of chronic urinary retention, acute, present on admission This urinary tract infection is related to the patient's outpatient francis cath eter which was changed shortly after admission. New Francis bag was attached however the Francis itself was not changed in the ED, so was changed 08/02 on the medical floor. Continue tamsulosin 0.4 mg q.d. He was restarted on ceftriaxone IV 1 g daily. UA grossly positive but culture negative. Continued antibiotics for 7 day course through 08/06/21 for complicated UTI. 3. Severe Acute on Chronic Protein Calorie Malnutrition appreciate dietary recommendations 4. Chronic diastolic heart failure Patient is currently not taking prescribed antihypertensives but does take aspirin 81 mg p.o. daily. Patient had an echocardiogram done approximately in April of 2020 and his EF was 55-60% 5.? Chronic atrial fibrillation Continue metoprolol ER 25 mg b.i.d. Adequately rate controlled on low-dose metoprolol provided here 6. Constipation -ordered daily MiraLax, oral and rectal Dulcolax as needed Time Spent With Patient Critical Care time: I spent a total of [] minutes of critical care time on this patient's care today; this time is exclusive of procedural time. Quality VTE Deep Vein Thrombosis/Pulmonary Embolism Present on Admission: No
--- NOTE | 2021-08-07 14:06 | CM.DPC ---
Addendum entered by Julia Vo R.N. 08/08/21 13:30: Left a message with Aging and Disability, Chelly, as well regarding information on an assigned case liner. Patient was ordered an MRI today. Original Note: DCP Continued: CM spoke with PT today and they said patient asked to work with PT after lunch due to feeling constipated and wanting to use the restroom prior to PT participation. CM spoke with the patient and he said he is feeling much better- he stated he was able to stand with PT and a walker and is still needing help with walking but was able to stand yesterday. CM called [facility] today to check on his long term care pharmacist care application CM called [phone] Cm was told that LTC application has been processed and is in the process of being assigned to a CM. CM was transferred to Cary Callahan- music manager- She is on leave until Friday but CM left Voice message for her to call CM back to get some more information on the patients LTC application and Case manger assignment. FRANCO called Assistance programmer Syd at [phone] and left voice message with him as well. CM call Alicia at [facility] to get some information about what they need to review this patient for possible admission. FRANCO let Alicia know that patients LTC application has been processed and is being assigned to a case liner with home and community services. Franco also let Alicia know that we are waiting on a call back to get more information. Alicia also wanted to know what the patient wants to do when he leaves Rehab- Patient stated he would like to go to [facility], or adult family home but is fine going back to his car if he needs to. Alicia stated she will talk with her DNS and will determine if they will accept patient for SNF services and will get back to when they have a chance to review patient. FRANCO spoke with the Yury Gerson he stated patient was saying he is thinking of getting dressed and just going back to his car. FRANCO met with patient at the bedside and discussed his wishes for DC CM spoke with OT and was told patient is not able to follow basic commands and had a hard time participating in OT today. was easily distracted and OT stated concern for possible neuro cause. Franco will talk with DR. Ortiz and see what he thinks about this as a possibility. FRANCO called [facility] at [phone] and Luke Mena RN [facility]
--- NOTE | 2021-08-07 14:50 | PT.IPTN ---
Current Diagnoses Weakness (07/31/21) Physical Therapy Treatment Note M2 PT-IP Current Condition Start: 08/01/21 11:58 Freq: NEEDED Status: Active Protocol: Document 08/01/21 10:40 AB (Rec: 08/01/21 12:15 AB [id number]) Physical Therapy Current Condition Current Condition Evaluation Date 08/01/21 Treatment Diagnosis UTI; H/O L TAN posterior (06/25); difficulty in walking Onset Date 07/31/21 M3 PT-IP Subjective Start: 08/01/21 11:58 Freq: NEEDED Status: Active Protocol: Document 08/07/21 14:30 KS (Rec: 08/07/21 16:06 KS [id number]) Subjective Physical Therapy Visit Type Type Treatment Note Visit Start Time 14:30 Visit Stop Time 14:50 Total Visit Minutes 20 Number of DIRECTOR SOFTWARE DEVELOPMENT Visits 6 Physical Therapy Visit Comments Patient Comments Co-treat w/ OT M4 PT-IP Mobility and Gait Start: 08/01/21 11:58 Freq: NEEDED Status: Active Protocol: Document 08/07/21 14:30 KS (Rec: 08/07/21 16:06 KS [id number]) PT-Bed Mobility Assessment Supine to Sit Supine to Sit Maximum Assistance,2 Person Assistance,Head of Bed Elevated,Bedrails Sit to Supine Sit to Supine Maximum Assistance,2 Person Assistance Scooting Scooting to Edge of Bed Maximum Assistance Scooting Up and Down in Bed Contact Guard Assistance PT-Transfer Assessment Sit to and From Stand Sit to and from Stand Maximum Assistance,2 Person Assistance,Use of Upper Extremities Equipment Transfer Assistive Device Gait Belt,Front Wheeled Walker Orthotic/Prosthetic Devices or Brace: No Transfers Transfer Destination Bed Transfer Technique sit<>stand Transfer Ability Level of Assist Maximum Assistance,2 Person Assistance,Use of Upper Extremities Comments Mobility Comments Pt supine in bed upon arrival from therapy and agreeable to try to stand. Max A x2 for sup <>sit and Max A for scooting EOB. Pt becomes distracted and seemingly confused very easily and needs frequent redirection and reminders to complete tasks throughout treatment. Attempted sit<> stand twice w/ Max A x2, but pt was unable to stand up completely and sat back down w /o instruction. Max A x2 for sit<>sup and repositioning. Pt able to scoot up in bed CGA and max cues. Pt left in bed w / all needs in reach. Gait Assessment Comments Gait Comments Not assessed. Unable to take steps. PT-Balance Assessment Sitting Balance and Reactions Static Sitting Balance Ability Poor Dynamic Sitting Balance Ability Poor Standing Balance and Reactions Static Standing Balance Ability Poor Dynamic Standing Balance Ability Poor Device Used FWW M5 PT-IP Objective Assessments Start: 08/01/21 11:58 Freq: NEEDED Status: Active Protocol: Document 08/01/21 10:40 AB (Rec: 08/01/21 12:15 AB [id number]) Orientation Orientation/Cognition Level of Alertness Alert Orientation Name Safety Awareness Decreased Safety Awareness Memory Description Short Term Impaired,Mcc Impaired Strength Lower Extremity Strength Assessment Bilaterally Impaired Comments Strength Comments RLE: 4-/5 LLE: 3+/5 Muscle Tone Muscle Tone WNL Yes M6 PT-IP Treatment Start: 08/01/21 11:58 Freq: NEEDED Status: Active Protocol: Document 08/07/21 14:30 KS (Rec: 08/07/21 16:06 KS [id number]) Physical Therapy Treatment Education Education Provided Precautions,Safety M7 PT-IP Assessment and Plan Start: 08/01/21 11:58 Freq: NEEDED Status: Active Protocol: Document 08/07/21 14:30 KS (Rec: 08/07/21 16:06 KS [id number]) PT Summary Assessment and Plan Potential Rehabilitation Potential Fair Status of Condition at Evaluation Evolving Summary Impairments Pain,ROM,Strength,Balance, Coordination,Sensation,Tone, Cognition,Bed Mobility, Transfers,Gait,Activity Tolerance Progress Towards Goals Slow Progress - Other Assessment Summary Pt continues to require Max A x2 w/ most all mobility. Pt has difficult time following instructions and remembering tasks during therapy and requires frequent cues and reminders. Unable to complete full sit<>stand today w/ Max A x2 and still unable to take steps or transfer w/ FWW. Pt continues to be limited by weakness, low tolerance for activity, and difficulty following directions and will require SNF to improve strength and functional independence. Goals Bed Mobility Goal Minimal Assistance Transfer Goal Minimal Assistance,Front Wheeled Walker Gait Goal Minimal Assistance,Front Wheel Walker Gait Distance 50 Other Goals improve bed mobility and transfers to CGA improve ambulation usng FWW 100 ft CGA Days to Meet Goals 10 Frequency of Treatment Frequency Of Treatment Once a Day Treatment Plan Physical Therapy Treatment Plan Bed Mobility Training,Transfer Training,Gait Training, Therapeutic Exercise,Balance Retraining,Post Op Education, Discharge Planning,Hot or Cold Pack,Neuromuscular Re-ed, Coordination Retraining,Manual Therapy Other Recommendations and Next Treatment bed mob, LE ex, precautions, Focus transfers, increase gait as able. Precautions Posterior Hip Precautions No Hip Flexion > 90 degrees,No Hip Internal Rotation,No Hip Adduction Other Precautions falls Recommendations To Nursing Amount of Assist Needed Total Assistance Discharge Recommendations PT Discharge Recommendations SNF Rehab Transportation Needs at Discharge Wheelchair/Cabulance
--- NOTE | 2021-08-07 14:50 | OT.IP.TRT ---
Current Diagnoses Weakness (07/31/21) Occupational Therapy Treatment Note M2 OT-IP Current Condition Start: 08/01/21 12:18 Freq: Status: Active Protocol: Document 08/01/21 11:35 [facility] (Rec: 08/01/21 12:36 [facility] [id number]) Occupational Therapy Current Condition Current Condition Evaluation Date 08/01/21 Treatment Diagnosis UTI, hx of Left TAN 06/25, decreased mobility Diagnosis Onset Date 07/31/21 Post Operative Precautions Posterior Hip Precautions No Hip Flexion > 90 degrees,No Hip Internal Rotation,No Hip Adduction M3 OT- IP Subjective and Pain Start: 08/01/21 12:18 Freq: Status: Active Protocol: Document 08/07/21 14:30 [facility] (Rec: 08/07/21 15:16 [facility] [id number]) OT- Subjective Occupational Therapy Visit Type Type Treatment Note Visit Start Time 14:30 Visit Stop Time 14:50 Total Visit Minutes 20 Occupational Therapy Visit Comments Patient Comments Pt agreed to try to get up. Patient/Caregiver Goals Pt not clear on what he would like to do, initially wanting to go back to his car but then saying that he is fine to go to an adult family home. OT Pain Assessment Pain When Pain Assessed At Rest Pain Present Pain Present Denied Pain M4 OT- IP ADL's Start: 08/01/21 12:18 Freq: Status: Active Protocol: Document 08/07/21 14:30 [facility] (Rec: 08/07/21 15:16 [facility] [id number]) OT WOE-Bdiy-Eleqyei General Evaluation Self-Feeding Ability Independent OT ADL-Grooming Comments OT Grooming Comments Not performed. OT ADL-Oral Care Comments Oral Care Comments NOt performed. OT ADL-Dressing General Eval Lower Body Dressing Ability Total Assistance Areas Needing Assistance Socks OT ADL-Bathing Comments OT Bathing Comments Sponge bath more appropriate at this time. M6 OT- IP Functional Cognition Start: 08/01/21 12:18 Freq: Status: Active Protocol: Document 08/07/21 14:30 [facility] (Rec: 08/07/21 15:16 [facility] [id number]) Cognitive Factors Limiting Selfcare Function Cognitive Ability Level of Alertness Alert,Confusional State Patient Orientation Name Attention Span Ability Capable of Focused Attention, Unable to Sustain Attention Ability to Follow Commands Able to Follow One Step Commands with Increased Time, Able to Follow One Step Commands with Repetition Memory Description Short Term Impaired,Working Impaired Cognitive Comments Cognitive Assessment Comments Pt has poor initiation of movements and states two weeks ago felt that he could not get his body to move the way he needs to. Pt needing step by step commands to move and constant cues to keep him focused. While doing bed mobility needs with HOUSEKEEPING DEPARTMENT WORKER, pt forgetting what he was doing throughout the task and had to be reminded that he is working on trying to get out of bed. M7 OT- IP Mobility and Balance Start: 08/01/21 12:18 Freq: Status: Active Protocol: Document 08/07/21 14:30 [facility] (Rec: 08/07/21 15:16 [facility] [id number]) OT- Bed Mobility Assessment Supine to Sit Supine to Sit Assist Maximum Assistance,2 Person Assistance Sit to Supine Sit to Supine Assist Maximum Assistance,2 Person Assistance OT-Transfer Assessment Sit to and From Stand Sit to and from Stand Maximum Assistance,2 Person Assistance Comments Mobility Comments Pt needing tactile cues to initiate pt to move his legs and also needing assist. Use of green pad to help move his hips to the edge of the bed. MAX AX 2 with FWW to stand to FWW. Pt only able to stand at this time with FWW and MAX A X2. OT- Balance Assessment Sitting Balance and Reactions Static Sitting Balance Ability Poor Dynamic Sitting Balance Ability Poor Standing Balance and Reactions Static Standing Balance Ability Poor Comments Other Balance Tests/Deviations/Treatment Pt still heavily leans into : posterior and lateral tilt while seated and needing MARVA to MODA for balance. Pt has poor awareness of midline while seated and standing. Pt tends to keep his head laterally flexed to the left as well. M8 OT- IP Objective Assessments Start: 08/01/21 12:18 Freq: Status: Active Protocol: Document 08/01/21 11:35 [facility] (Rec: 08/01/21 12:36 [facility] [id number]) OT Gross Range of Motion Upper Extremity Range of Motion ROM Impairments grossly WFL OT Strength Comments Strength Comments BUE 4-/5 OT-Muscle Tone Assessment Muscle Tone WNL Yes M9 OT- IP Assessment and Plan Start: 08/01/21 12:18 Freq: Status: Active Protocol: Document 08/07/21 14:30 [facility] (Rec: 08/07/21 15:16 [facility] [id number]) OT Summary Assessment and Plan Potential Rehabilitation Potential Fair Analytic Complexity at Evaluation Moderate Summary OT Impairments Pain,Strength,Balance, Functional Cognition, Functional Mobility,Grooming, Dressing,Toileting,Bathing, Toilet Transfers,Shower Transfers,Activity Tolerance Progress Towards Goals Slow Progress due to Pain,Slow Progress due to Medical Issues,Slow Progress due to Activity Tolerance,Slow Progress due to Cognition Assessment Summary Able to talk to hospitalist of pt's decreased initiation of movement,decreased coordination of movement for mobility, noted some drooling on left side of his mouth while seated on the edge of the bed, an and having difficulty with his mentation to follow commands and focus. Pt is highly distracted however willing to do therapy. Goals Grooming Goal Standby Assistance Dressing Goal Minimal Assistance Toileting Goal Minimal Assistance Bathing Goal Moderate Assistance Toilet Transfer Goal Minimal Assistance Shower Transfer Goal Minimal Assistance Patient/Caregiver Education Goal Demonstrate Post-Op Precautions Days to Meet Goals 40 Frequency of Treatment Frequency Of Treatment Once a Day Treatment Plan OT Treatment Plan ADL Training,Functional Cognition Training,Functional Mobility,Patient/Family Education,Discharge Planning Other Treatment Recommendations and Next MAX A X2 to BSC with FWW. Treatment Focus Discharge Recommendations OT Discharge Recommendations SNF Rehab,LTAC Transportation Needs at Discharge Wheelchair/Cabulance
[2021-08-07 18:04] VITALS: BP 151/94
[2021-08-07 18:57] LABS: Appearance Urine UA CLEAR; Bilirubin Urine UA NEGATIVE (NEGATIVE); Glucose Urine UA NEGATIVE (Negative); Ketones Urine UA NEGATIVE (NEGATIVE); Leukocyte Esterase Urine UA NEGATIVE (NEGATIVE); Nitrite Urine UA NEGATIVE (Negative); Occult Blood Urine UA 3+ (Negative); Protein Urine UA 1+ (Negative); Urobilinogen Urine UA 0.2 E.U./dL (0.2); pH Urine UA 6.5 (4.5-8.0)
[2021-08-07 19:06] LABS: Color Urine UA RED
[2021-08-07 19:10] LABS: RBC Urine >100/HPF (0-5/HPF); WBC Urine 0-1/HPF (0-5/HPF)
[2021-08-07 19:11] LABS: Bacteria Urine None Seen; Culture Indicated Urine Cult Not Indicated; Squamous Epithelial Cell Urine 0-1 /HPF (0-5/HPF)
[2021-08-07 20:46] VITALS: BP 151/94; PULSE 79
[2021-08-07 21:12] VITALS: BP 160/95; PULSE 80; RESP 18; TEMP 36.8; O2SAT 96
[2021-08-08 07:40] VITALS: BP 141/94; PULSE 76; RESP 16; TEMP 36.2; O2SAT 97
[2021-08-08] MEDS: ASPIRIN EC 81 MG TABLET PO ×3 (09:13→21:55)
[2021-08-08] MEDS: polyethylene glycoL 3350 17 GM POWD.PACK PO (09:14)
[2021-08-08] MEDS: ENOXAPARIN 40 MG/0.4 ML SYRINGE SUBCUT (09:14)
[2021-08-08] MEDS: TAMSULOSIN 0.4 MG CAPSULE PO (09:14)
[2021-08-08 09:15] VITALS: BP 141/94; PULSE 80
[2021-08-08] MEDS: METOPROLOL ER 25 MG TABLET PO ×2 (09:15→21:55)
--- NOTE | 2021-08-08 11:30 | PT.IPTN ---
Current Diagnoses Weakness (07/31/21) Physical Therapy Treatment Note M2 PT-IP Current Condition Start: 08/01/21 11:58 Freq: NEEDED Status: Active Protocol: Document 08/01/21 10:40 [facility] (Rec: 08/01/21 12:15 [facility] [id number]) Physical Therapy Current Condition Current Condition Evaluation Date 08/01/21 Treatment Diagnosis UTI; H/O L TAN posterior (06/25); difficulty in walking Onset Date 07/31/21 M3 PT-IP Subjective Start: 08/01/21 11:58 Freq: NEEDED Status: Active Protocol: Document 08/08/21 11:30 [facility] (Rec: 08/08/21 12:46 [facility] [id number]) Subjective Physical Therapy Visit Type Type Treatment Note Visit Start Time 11:30 Visit Stop Time 11:55 Total Visit Minutes 25 Number of PROGRAM MANAGER Visits 0 Physical Therapy Visit Comments Patient Comments needs motivation to do PT; directs his own care Therapy Pain Assessment Pain Present Pain Present Denied Pain M4 PT-IP Mobility and Gait Start: 08/01/21 11:58 Freq: NEEDED Status: Active Protocol: Document 08/08/21 11:30 [facility] (Rec: 08/08/21 12:46 [facility] [id number]) PT-Bed Mobility Assessment Supine to Sit Supine to Sit Maximum Assistance,2 Person Assistance,Head of Bed Elevated Sit to Supine Sit to Supine Maximum Assistance Scooting Scooting to Edge of Bed Maximum Assistance Scooting Up and Down in Bed Maximum Assistance PT-Transfer Assessment Sit to and From Stand Sit to and from Stand Maximum Assistance,2 Person Assistance,Use of Upper Extremities Equipment Transfer Assistive Device Gait Belt,Front Wheeled Walker Orthotic/Prosthetic Devices or Brace: No Comments Mobility Comments pt completed supine to sit with HOB elevated max A x 2 and max cues. 2 attempts needed to complete tasks. pt directs his own care. pt laid back to bed on first attempt and tried to sit back up again after instructed to sit up one more time. increase posterior trunk lean and lateral lean to the L noted. (+) drooling in sitting. Attempted x 2 sit to stand max A x 2 and max cues but unable to transfer to chair. increase lateral lean to the L . pt then sat and stated that he will go back to bed now and just laid back to bed. Needs max A for elevation to bed. positioned in bed total A x 2 . call light and table placed within reach. PT-Balance Assessment Sitting Balance and Reactions Static Sitting Balance Ability Poor Dynamic Sitting Balance Ability Poor Standing Balance and Reactions Static Standing Balance Ability Poor Dynamic Standing Balance Ability Poor Device Used FWW M5 PT-IP Objective Assessments Start: 08/01/21 11:58 Freq: NEEDED Status: Active Protocol: Document 08/01/21 10:40 [facility] (Rec: 08/01/21 12:15 [facility] [id number]) Orientation Orientation/Cognition Level of Alertness Alert Orientation Name Safety Awareness Decreased Safety Awareness Memory Description Short Term Impaired,Alf Impaired Strength Lower Extremity Strength Assessment Bilaterally Impaired Comments Strength Comments RLE: 4-/5 LLE: 3+/5 Muscle Tone Muscle Tone WNL Yes M6 PT-IP Treatment Start: 08/01/21 11:58 Freq: NEEDED Status: Active Protocol: Document 08/08/21 11:30 [facility] (Rec: 08/08/21 12:46 [facility] [id number]) Physical Therapy Treatment Education Education Provided Safety M7 PT-IP Assessment and Plan Start: 08/01/21 11:58 Freq: NEEDED Status: Active Protocol: Document 08/08/21 11:30 [facility] (Rec: 08/08/21 12:46 [facility] [email or web address]) PT Summary Assessment and Plan Potential Rehabilitation Potential Fair Summary Impairments Pain,ROM,Strength,Balance, Coordination,Sensation,Tone, Cognition,Bed Mobility, Transfers,Gait,Activity Tolerance Progress Towards Goals Slow Progress due to Activity Tolerance,Slow Progress - Other Assessment Summary pt requiring max A x 2 to total A x 2 with mobility and requires motivation to participate. Pt directs his own care. Noted increase lateral trunk leaning to the L and drooling today not seen during initial eval. will continue to assess progress. Goals Bed Mobility Goal Moderate Assistance Transfer Goal Moderate Assistance,Front Wheeled Walker Gait Goal Moderate Assistance,Front Wheel Walker Gait Distance 50 Other Goals improve bed mobility and transfers to CGA improve ambulation usng FWW 100 ft CGA Days to Meet Goals 10 Frequency of Treatment Frequency Of Treatment Once a Day Treatment Plan Physical Therapy Treatment Plan Bed Mobility Training,Transfer Training,Gait Training, Therapeutic Exercise,Balance Retraining,Post Op Education, Discharge Planning,Hot or Cold Pack,Neuromuscular Re-ed, Coordination Retraining,Manual Therapy Precautions Posterior Hip Precautions No Hip Flexion > 90 degrees,No Hip Internal Rotation,No Hip Adduction Other Precautions falls Recommendations To Nursing Amount of Assist Needed Mechanical Lift Discharge Recommendations PT Discharge Recommendations SNF Rehab Transportation Needs at Discharge Wheelchair/Cabulance
--- NOTE | 2021-08-08 11:34 | CM.DPC ---
Addendum entered by Julia Vo R.N. 08/08/21 15:02: Correct fax number for Myesha is: [phone]. Just sent to corrected fax number. Myesha's phone number in intake is as stated below. [phone] Addendum entered by Julia Vo R.N. 08/08/21 14:48: Spoke to Myesha Wise, she called back from [facility] intake. She indicated, she never received the intake form, but they do have the half-way application completed, but need the intake form. Let her know that this form had been submitted upon patient's last admission here, but she indicated, they had no record of this. She indicated that as soon as an intake form is completed, she can go ahead and assign a WATER RESOURCE PROJECT MANAGER and set up a phone assessment. The fax number to send the intake is: [phone]. Myesha indicated that as soon as this form is received, they will initiate the process of getting an WATER RESOURCE PROJECT MANAGER assigned. Completed intake form and faxed it to the number stated above and on the form. Gave a copy of Katherine nutrition services assistant, to scan for the patient's chart. Initially had Katherine check to see if this form was scanned, and there was no intake form, only the intermediate project manager care application. If WATER RESOURCE PROJECT MANAGER can be assigned, and assessment in the works, may be able to get patient placed. Addendum entered by Julia Vo R.N. 08/08/21 13:00: P.T worked with patient, and voiced concerns if patient could possibly have had a CVA. He has been leaning to one side, drooling upon occasion. He is currently a max assist of two, [facility] lift. She will discuss with hospitalist. Went ahead and left a message with Mike at [facility] to see if he may possibly consider patient, as care management has been working on intermediate project manager planning with [facility]. Did not fax referral, will await his call back before sending to see if he would consider. Can attempt [facility] as well. Mike from [facility] called back and indicated that they can't accept until he has a assessment from [facility] for a daily rate for half-way care. Confirmed with him over the phone that this is the case, for half-way assessment needs to be completed before they can consider acceptance. Original Note: DCP Cont: Osiris at [facility] Swing bed has denied patient. She indicated in a message, they are full, and have several beds in the same situation that are half-way, and patient does not have a good discharge plan. Called Syd at [facility] for additional information to see if a WATER RESOURCE PROJECT MANAGER was assigned, as [facility] application was submitted, as well as Medicaid Application approximately 3 times. Confirmed with P.T. today that patient is weak, and unable to stand. P.T. in team rounds mentioned having a speech therapy eval to look at cognition. Went ahead and placed orders. There is a fishing tool supervisor of [facility], for JACK Bailey, had just been talking to her. Her name is Grazyna Lowry. Her cell phone number is: [phone]. Left her a message to call this case operator back to attempt to find out if patient has been assigned a case operator, for he may need to be assessed for half-way care placement. Spoke to Silvia at [facility], and updated her on the situation, as well as Medicaid application being submitted. Let her know that this patient is in need of intermediate project manager care placement. She indicated that she will review as possibility, may have some half-way beds, but can't be guaranteed. Will send her over information including care management notes. Grazyna Lowry called back and indicated that patient had refused services on Jun. . Let her know that a new application had been sent recently to [facility]. Grazyna also indicated that patient is decisional, and does have the right to refuse services. She encouraged case management to contact intake to see what the application status is. She gave the name of Myesha Frandy. Her phone number is: [phone]. Called and left Myesha a message to see if she has new application, and the status. P: DCP continuing to work on placement. Have messages out to Myesha Wise at intake message left, as well as Syd at [facility]. Will send clinical information over to [facility]. Julia Vo RN/It Audit Manager
--- NOTE | 2021-08-08 12:58 | PT-IP ANOTE ---
Talked to OT and confirmed change in mobility and assistance status. informed transplant case manager. Talked to the doctor regarding change in mobility compared to last week's PT evaluation and pt with increase lateral side leaning to the L and drooling and concerns about CVA. Doctor stated that they can do further testing.
--- NOTE | 2021-08-08 14:30 | ST.IPIE ---
Visit Care Team Role Provider Type Maria Victoria Zambrano MD Emergency Provider Physician Referring Provider Specialty: Emergency Medicine Address: [address] [place] [address], [id number] Email: ARAMIS Contreras Admit Provider Physician Attending Provider Specialty: Internal Medicine Address: [address] [place] [address], [id number] Email: [email or web address] Current Diagnoses Weakness (07/31/21) Past Medical History (Last Reviewed 08/01/21 @ 01:41 by ARAMIS Contreras) Cellulitis of left leg (Medical) Congestive heart failure (Medical) Left Vent EF 55-60% Elevated troponin (Medical) Essential hypertension (Medical) Hypertension (Medical) No pertinent past surgical history (Medical) ST IP Initial Evaluation Report PARTS ADMINISTRATOR Adult Cognitive Linguistic Eval Start: 08/08/21 12:22 Freq: Status: Active Protocol: Document 08/08/21 12:22 [facility] (Rec: 08/08/21 12:44 ZS [id number]) Adult Cognitive Linguistic Evaluation Session Time Visit Start Time 11:50 Visit Stop Time 12:20 Total Visit Minutes 30 Setting Assessment Location Acute Care Visit Type Note Type Initial evaluation Next Note Type Next Note Type Treatment Note Patient Information Identification Type Name,Wristband Medical History Rayo Estrada 71-year-old gentleman with multiple repeat visits to the emergency department and several admissions, has been living in his car for years. He was found sitting in his car outside the emergency department on 08/01/2021. ground worker was sent to see if they could help and convinced him to come into the ED for further evaluation. He was found in stool and and nursing staff helped cleaning him, changing his catheter etc and feeding him as he told them he had not eaten for 3 days. He states that over the last couple of days he has gotten so weak that he can not transfer.? At this time he quite literally cannot stand up which is a new finding for him.? He had been able to ambulate with a walker previously.? He has a history of hypertension, atrial fibrillation diastolic heart failure. On July 02 of this year he had a left femoral neck fracture with a cemented unipolar left hip placed.? During that hospital and subsequent, attempts were made to get him to care home facility for rehabilitation but he was unable/unwilling to do that.? Apparently a hotel room was available for a couple of days only and he has since moved back to his car.? Since the left hip surgery, he has been seen on the for hip pain, the for acute bladder infection treated with antibiotics, the for acute urinary retention and Arredondo catheter was placed, July 26 for left hip pain.? With each of these visits he was able to ambulate with his walker. Rayo Estrada is readmitted for profound weakness, probable malnutrition, and failure to thrive in the setting of chronic homelessness and secondary to a less than 30 day history of a left-sided hip surgery. Language(s) Spoken in the Home [place] Education Level High school diploma Occupation Status Unemployed Subjective Patient Report Rayo was laying in his bed watching TV when clinician arrived. He was leaning slightly to the left, which PT indicated was new since his PT evaluation. PT added Rayo had been drooling. Rayo reported difficulty with liquid coming out of his mouth when he is drinking with an open cup. He indicated no difficulty with chewing or swallowing. Rayo reported he did not used to have difficulty with recalling and listing items when he was having difficulty recalling a list of 5 items, indicating some awareness of deficits. Mental Status Alert,Responsive,Cooperative Assessment Oral Motor Examination Completed Yes Results Tongue strength and ROM were WNL. Difficulty noted with maintaining labial seal on first trial, though no difficulty on second trial. He exhibited jaw strength and ROM WNL. Minimal teeth present, though Rayo indicated he has no difficulty chewing food. Structures and function appear WFL for the purposes of swallowing. Slight slurring in speech, though Rayo was 100 % intelligible. Informal Assessment Receptive Language Normal Yes Expressive Language Normal Yes Pragmatic Language Normal Yes Speech Impairment(s) Imprecise articulation Cognition Normal No Cognitive Impairment(s) Orientation,Attention,Short- term memory Formal Assessment Standardized Test/Screener Type [facility] Mental Status ([facility]) Administration Complete Results Results of the [facility] place Rayo's score at a 6/30, indicating significantly impaired cognitive function. Rayo exhibited difficulty with orienting to time, though oriented to place with no difficulty. He demonstrated significant difficulty with immediate recall of 5 items and showed no improvement with multiple repetitions of list. Difficulty noted with generative naming task, following directions, and recalling details from a story . Rayo identified when he was not attending to a task and when he was having difficulty recalling listed items, indicating limited awareness of deficits. Findings/Results Language Function Within functional limits Cognitive Function Severely impaired Findings Rayo presents with severe cognitive impairments characterized by deficits in short-term memory, attention, executive functions, and following directions. Recommend speech therapy to provide patient education/ coaching regarding cognitive functions and discuss strategies to decrease impact of deficits on daily activities. Cognitive Communication Deficits Self-awareness of Cognitive- Limited awareness (minimal Communication Deficits appreciation without specificity) Prognosis Prognosis Fair Based on Cognitive status,Comorbidities ,Duration of symptoms/severity Plan of Care Speech-Language Treatment Yes Patient/Caregiver Education Described results of evaluation,Patient requires further education/training Short Term Goals 1. Rayo will perform strategies to aid in cognitive tasks independently to reduce impact of cognitive deficits on daily tasks. Discharge Recommendations senior care facility
--- NOTE | 2021-08-08 14:55 | OT.IP.TRT ---
Current Diagnoses Weakness (07/31/21) Occupational Therapy Treatment Note M2 OT-IP Current Condition Start: 08/01/21 12:18 Freq: Status: Active Protocol: Document 08/01/21 11:35 [facility] (Rec: 08/01/21 12:36 [facility] [id number]) Occupational Therapy Current Condition Current Condition Evaluation Date 08/01/21 Treatment Diagnosis UTI, hx of Left TAN 06/25, decreased mobility Diagnosis Onset Date 07/31/21 Post Operative Precautions Posterior Hip Precautions No Hip Flexion > 90 degrees,No Hip Internal Rotation,No Hip Adduction M3 OT- IP Subjective and Pain Start: 08/01/21 12:18 Freq: Status: Active Protocol: Document 08/08/21 15:00 [facility] (Rec: 08/08/21 15:09 [facility] [id number]) OT- Subjective Occupational Therapy Visit Type Type Treatment Note Visit Start Time 14:47 Visit Stop Time 14:55 Total Visit Minutes 8 Occupational Therapy Visit Comments Patient Comments Pt agreeable to talk to OT and do [place] Makng Part B. Patient/Caregiver Goals To stay some place warm. M4 OT- IP ADL's Start: 08/01/21 12:18 Freq: Status: Active Protocol: Document 08/07/21 14:30 [facility] (Rec: 08/07/21 15:16 [facility] [id number]) OT HRH-Yvbt-Ptgniza General Evaluation Self-Feeding Ability Independent OT ADL-Grooming Comments OT Grooming Comments Not performed. OT ADL-Oral Care Comments Oral Care Comments NOt performed. OT ADL-Dressing General Eval Lower Body Dressing Ability Total Assistance Areas Needing Assistance Socks OT ADL-Bathing Comments OT Bathing Comments Sponge bath more appropriate at this time. M6 OT- IP Functional Cognition Start: 08/01/21 12:18 Freq: Status: Active Protocol: Document 08/08/21 15:00 [facility] (Rec: 08/08/21 15:09 [facility] [id number]) Cognitive Factors Limiting Selfcare Function Cognitive Ability Level of Alertness Alert,Confusional State Patient Orientation Name,Place Attention Span Ability Unable to Focus,Unable to Sustain Attention Ability to Follow Commands Able to Follow One Step Commands with Increased Time, Able to Follow One Step Commands with Repetition Memory Description Short Term Impaired,Working Impaired Cognitive Tests SLUMS Per [employer] pt scored 6/30 Cognitive Comments Cognitive Assessment Comments [place] Making Part B done and pt unable to focus long enough to complete the task. Pt highly distracted and not able to follow the commands or at times not willing to follow the commands at this time. Pt however able to scan the paper to see the numbers and letters when called out to the pt. Pt did not recall what he had talked to the disease case manager rn yesterday. Pt asked what his goals are or where he wants to go, pt states, I just do not know. Pt finally did states knows that he can no longer care for himself and just wants to be somewhere where it is warm. OT- Balance Assessment Sitting Balance and Reactions Static Sitting Balance Ability Poor Dynamic Sitting Balance Ability Poor Standing Balance and Reactions Static Standing Balance Ability Poor Comments Other Balance Tests/Deviations/Treatment Pt still heavily leans into : posterior and lateral tilt while seated and needing MARVA to MODA for balance. Pt has poor awareness of midline while seated and standing. Pt tends to keep his head laterally flexed to the left as well. M8 OT- IP Objective Assessments Start: 08/01/21 12:18 Freq: Status: Active Protocol: Document 08/01/21 11:35 [facility] (Rec: 08/01/21 12:36 [facility] [id number]) OT Gross Range of Motion Upper Extremity Range of Motion ROM Impairments grossly WFL OT Strength Comments Strength Comments BUE 4-/5 OT-Muscle Tone Assessment Muscle Tone WNL Yes M9 OT- IP Assessment and Plan Start: 08/01/21 12:18 Freq: Status: Active Protocol: Document 08/08/21 15:00 [facility] (Rec: 08/08/21 15:09 [facility] [id number]) OT Summary Assessment and Plan Potential Rehabilitation Potential Poor Analytic Complexity at Evaluation Moderate Summary OT Impairments Pain,Strength,Balance, Functional Cognition, Functional Mobility,Grooming, Dressing,Toileting,Bathing, Toilet Transfers,Shower Transfers,Activity Tolerance Progress Towards Goals Slow Progress due to Pain,Slow Progress due to Medical Issues,Slow Progress due to Activity Tolerance,Slow Progress due to Cognition Assessment Summary Pt still having cognitive issues of being distracted, decreased focus and however has insight that he can no longer care for himself. Goals Grooming Goal Standby Assistance Dressing Goal Minimal Assistance Toileting Goal Minimal Assistance Bathing Goal Moderate Assistance Toilet Transfer Goal Minimal Assistance Shower Transfer Goal Minimal Assistance Patient/Caregiver Education Goal Demonstrate Post-Op Precautions Days to Meet Goals 40 Frequency of Treatment Frequency Of Treatment Once a Day Treatment Plan OT Treatment Plan ADL Training,Functional Cognition Training,Functional Mobility,Patient/Family Education,Discharge Planning Other Treatment Recommendations and Next MAX A X2 to BSC with FWW. Treatment Focus Discharge Recommendations OT Discharge Recommendations SNF Rehab,LTAC Transportation Needs at Discharge Wheelchair/Cabulance,Stretcher /Ambulance
--- NOTE | 2021-08-08 16:46 | PC.NURSE ---
pt refusing to turn. took 3 people to change his brief since he is not motivated.
--- NOTE | 2021-08-08 17:05 | PM.PN.1 ---
Subjective Subjective Date Patient Seen: 08/08/21 Time Patient Seen: 08:00 Interval history: Patient notes today he has had weakness that started over a week ago. He has been leaning to his left. Per PT he has some trunkal weakness not present on last admission. Exam Vital Signs (past 8 hours): - 08/08/21 09:15 Pulse Rate 80 Blood Pressure 141/94 H Oxygen Delivery Method Room Air Oxygen Flow Rate 0 Narrative Exam Narrative: General:?Pleasant and cooperative male in no acute distress EXT: minimal pain to palpation of hips Objective Labs Result Diagrams: 08/05/21 06:05 08/05/21 06:05 Labs: Laboratory Results - last 24 hr 08/07/21 18:00 Urine Color Red Urine Appearance Clear Urine pH 6.5 Ur Specific [place] 1.020 Urine Protein 1+ H Urine Glucose (UA) Negative Urine Ketones Negative Urine Occult Blood 3+ H Urine Nitrate Negative Urine Bilirubin Negative Urine Urobilinogen 0.2 Ur Leukocyte Esterase Negative Urine RBC >100/hpf H Urine WBC 0-1/hpf Ur Squamous Epith Cells 0-1 /hpf Urine Bacteria None seen Ur Culture Indicated? Cult not indicated PFSH Medical History Cellulitis of left leg Congestive heart failure Elevated troponin Essential hypertension Hypertension Surgical History No pertinent past surgical history Family History Mother Hypertension Sister Hypertension Social History household members: none housing: other occupational status: unemployed Smoking Status: Current every day smoker alcohol intake: current additional social history: Lives in a hotel Assessment & Plan Assessment & Plan narrative: 1. Severe weakness, acute, possibly related to UTI, also status post left hip unipolar 06/25/2021 -Patient has been seen by social work and states he is agreeable to being housed in a rehab setting for the moment, though this may be quite difficult with his social situation -Physical therapy is assessing him daily. -MRI head to rule out old stroke 2. Urinary tract infection in the setting of chronic urinary retention, resolved This urinary tract infection is related to the patient's outpatient francis catheter which was changed shortly after admission. New Francis bag was attached however the Francis itself was not changed in the ED, so was changed 08/02 on the medical floor. Continue tamsulosin 0.4 mg q.d. He was restarted on ceftriaxone IV 1 g daily. UA grossly positive but culture negative. Continued antibiotics for 7 day course through 08/06/21 for complicated UTI. 3. Severe Acute on Chronic Protein Calorie Malnutrition appreciate dietary recommendations 4. Chronic diastolic heart failure Patient is currently not taking prescribed antihypertensives but does take aspirin 81 mg p.o. daily. Patient had an echocardiogram done approximately in April of 2020 and his EF was 55-60% 5.? Chronic atrial fibrillation Continue metoprolol ER 25 mg b.i.d. Adequately rate controlled on low-dose metoprolol provided here 6. Constipation -ordered daily MiraLax, oral and rectal Dulcolax as needed Time Spent With Patient Critical Care time: I spent a total of [] minutes of critical care time on this patient's care today; this time is exclusive of procedural time. Quality VTE Deep Vein Thrombosis/Pulmonary Embolism Present on Admission: No
--- NOTE | 2021-08-08 21:00 | DI.MRI.S_ITS ---
PROCEDURE: MR HEAD/BRAIN WO CON INDICATIONS: weakness TECHNIQUE: Non-contrast axial T1 spin echo, axial T2 fast spin echo, sagittal and axial FLAIR, coronal T2 fast spin echo, axial gradient echo, axial diffusion and ADC through the brain. COMPARISON: None. FINDINGS: Image quality: Severely degraded by motion artifact. CSF spaces: Ventricles appear symmetric in size and shape. Basal cisterns are patent. No extra-axial fluid collections. Brain: No intracranial bleeds or mass effects. There is cerebral volume loss for age. There are periventricular and deep white matter chronic small vessel ischemic changes. Brainstem appears normal. Diffusion-weighted images show no acute ischemic insults. No chronic ischemic insults. Normal intravascular flow voids are present. Skull and face: Calvarial bone marrow is normal in signal. Orbits are normal. Sinuses: Sinuses and mastoids are clear. IMPRESSION: No evidence of acute ischemia. Diffuse small white matter changes, probably represent chronic microvascular ischemic disease, versus statistically less likely demyelination or other infectious, inflammatory, neurodegenerative etiology, technically nonspecific. Dictated by: Dhruv Rajput M.D. on 08/09/2021 at 11:53 Approved by: Dhruv Rajput M.D. on 08/09/2021 at 11:55
[2021-08-08 21:53] VITALS: BP 125/62; PULSE 73; RESP 18; TEMP 36.7; O2SAT 96
[2021-08-09] MEDS: ENOXAPARIN 40 MG/0.4 ML SYRINGE SUBCUT (08:04)
[2021-08-09 08:05] VITALS: BP 142/97; PULSE 68
[2021-08-09] MEDS: METOPROLOL ER 25 MG TABLET PO ×2 (08:05→20:42)
[2021-08-09] MEDS: TAMSULOSIN 0.4 MG CAPSULE PO (08:05)
[2021-08-09] MEDS: polyethylene glycoL 3350 17 GM POWD.PACK PO (08:06)
[2021-08-09 11:25] VITALS: BP 141/83; PULSE 71; RESP 16; TEMP 36.2; O2SAT 97
--- NOTE | 2021-08-09 11:53 | ST.IPTN ---
Visit Care Team Role Provider Type Maria Victoria Zambrano MD Emergency Provider Physician Referring Provider Address: [address] [place] [address], [id number] ARAMIS Contreras Admit Provider Physician Attending Provider Address: [address] [place] [address], [id number] SERVICE ORDER TAKER Treatment Note SERVICE ORDER TAKER Treatment Note Start: 08/09/21 11:38 Freq: Status: Active Protocol: Document 08/09/21 11:38 [facility] (Rec: 08/09/21 11:52 [facility] [id number]) Speech Pathology Treatment Note Session Time Visit Start Time 11:20 Visit Stop Time 11:35 Total Visit Minutes 15 Setting Treatment Setting Acute Care Visit Type Note Type Treatment Note Next Note Type Next Note Type Treatment Note General Information General Information Rayo Estrada is a 71-year-old man with multiple repeat visits to the emergency department and several admissions, has been living in his car for years. He was found sitting in his car outside the emergency department on 08/01/2021. vineyard worker was sent to see if they could help and convinced him to come into the ED for further evaluation. He was found in stool and nursing staff helped clean him , change his catheter, and feed him as he told them he had not eaten for 3 days. He states that over the last couple of days he has gotten so weak that he cannot transfer. At this time he quite literally cannot stand up which is a new finding for him. He had been able to ambulate with a walker previously. He has a history of hypertension, atrial fibrillation diastolic heart failure. On July 02 of this year he had a left femoral neck fracture with a cemented unipolar left hip placed. During that hospital and subsequent, attempts were made to get him to fpc facility for rehabilitation but he was unable/unwilling to do that. Apparently a hotel room was available for a couple of days only and he has since moved back to his car. Since the left hip surgery, he has been seen on the for hip pain, the for acute bladder infection treated with antibiotics, the for acute urinary retention and Arredondo catheter was placed, July 26 for left hip pain. With each of these visits he was able to ambulate with his walker. Rayo Estrada is readmitted for profound weakness, probable malnutrition, and failure to thrive in the setting of chronic homelessness and secondary to a less than 30 day history of a left-sided hip surgery. Subjective Identification Type Name,ID Wristband Observations/Patient Presentation Rayo was laying in his bed watching TV when clinician arrived. He had just returned from an MRI. Rayo responded to a verbal greeting. Chief Complaint(s) Cognitive Objective Short Term Goals 1. Rayo will perform strategies to aid in cognitive tasks independently to reduce impact of cognitive deficits on daily tasks. Treatment Activities Discussed strategies to aid in short-term memory and practiced recalling memory aids using strategies. Provided patient education regarding short term and detention memory. 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 Rayo expressed understanding when clinician described short vs. exterminator helper memory. Discussed use of bringing intention to attention (e.g., using fingers as a marker to recall listed items), writing information down or requesting written information, and minimizing distractions in the environment. Rayo expressed understanding of strategies, recalled 2/3 strategies, and demonstrated spontaneous use of minimizing distractions during session as he turned down the volume on the TV. Reviewed with Patient Goals,Home Exercise Program Patient/Caregiver Understanding Good Plan Therapeutic Contents Cognitive-Linguistic Training, Home Exercise Program Provided Patient/Caregiver Instruction Home Exercise Program, Questions/Concerns Therapy Recommendations Continue with Current Program
--- NOTE | 2021-08-09 12:55 | OT.IP.TRT ---
Current Diagnoses Weakness (07/31/21) Occupational Therapy Treatment Note M2 OT-IP Current Condition Start: 08/01/21 12:18 Freq: Status: Active Protocol: Document 08/01/21 11:35 [facility] (Rec: 08/01/21 12:36 [facility] [id number]) Occupational Therapy Current Condition Current Condition Evaluation Date 08/01/21 Treatment Diagnosis UTI, hx of Left TAN 06/25, decreased mobility Diagnosis Onset Date 07/31/21 Post Operative Precautions Posterior Hip Precautions No Hip Flexion > 90 degrees,No Hip Internal Rotation,No Hip Adduction M3 OT- IP Subjective and Pain Start: 08/01/21 12:18 Freq: Status: Active Protocol: Document 08/09/21 13:01 [facility] (Rec: 08/09/21 13:17 [facility] [id number]) OT- Subjective Occupational Therapy Visit Type Type Progress Note Visit Start Time 12:32 Visit Stop Time 12:55 Total Visit Minutes 23 Notes Partial co-treat with P.T., of note, on this date P.T. is male and this story writer assumed a support role only during mobility. Occupational Therapy Visit Comments Patient Comments I feel less weak. OT Pain Assessment Pain When Pain Assessed At Rest Pain Present Pain Present Denied Pain M4 OT- IP ADL's Start: 08/01/21 12:18 Freq: Status: Active Protocol: Document 08/09/21 13:01 [facility] (Rec: 08/09/21 13:17 [facility] [id number]) OT [id number] Comments OT Self-Feeding Comments Not meal time OT ADL-Grooming General Evaluation Grooming Ability Standby Assistance Areas Needing Assistance Retrieving/Set-up of Grooming Items,Face Washing Comments OT Grooming Comments seated in chair. Pt states that he is aware of his drooling but unsure of when it started. OT ADL-Oral Care General Eval Oral Care Ability Standby Assistance Areas of Assistance Brushing Teeth,Retrieving/Set- Up of Items Comments Oral Care Comments seated in chair. Pt had no difficulty with fine motor tasks needed for opening tooth paste. OT ADL-Dressing General Eval Lower Body Dressing Ability Total Assistance Areas Needing Assistance Socks OT ADL-Toileting Comments OT Toileting Comments Not performed OT ADL-Bathing Comments OT Bathing Comments Not performed M6 OT- IP Functional Cognition Start: 08/01/21 12:18 Freq: Status: Active Protocol: Document 08/08/21 15:00 [facility] (Rec: 08/08/21 15:09 [facility] [id number]) Cognitive Factors Limiting Selfcare Function Cognitive Ability Level of Alertness Alert,Confusional State Patient Orientation Name,Place Attention Span Ability Unable to Focus,Unable to Sustain Attention Ability to Follow Commands Able to Follow One Step Commands with Increased Time, Able to Follow One Step Commands with Repetition Memory Description Short Term Impaired,Working Impaired Cognitive Tests SLUMS Per [employer] LAUNCH COMMANDER pt scored 6/30 Cognitive Comments Cognitive Assessment Comments [place] Making Part B done and pt unable to focus long enough to complete the task. Pt highly distracted and not able to follow the commands or willing to follow the commands at this time. Pt however able to scan the paper to see the numbers and letters when called out to the pt. Pt did not recall what he had talked to the pillowcase turner yesterday. Pt asked what his goals are or where he wants to go, pt states, I just do not know. Pt finally did states knows that he can no longer care for himself and just wants to be somewhere where it is warm. M7 OT- IP Mobility and Balance Start: 08/01/21 12:18 Freq: Status: Active Protocol: Document 08/09/21 13:01 [facility] (Rec: 08/09/21 13:17 [facility] [id number]) OT- Bed Mobility Assessment Supine to Sit Supine to Sit Assist Moderate Assistance,2 Person Assistance Scooting Scooting to Edge of Bed Moderate Assistance,2 Person Assistance OT-Transfer Assessment Sit to and From Stand Sit to and from Stand Moderate Assistance,2 Person Assistance Transfers Transfer Ability Moderate Assistance,2 Person Assistance Technique Transfer Destination Chair Transfer Technique Stand Step Pivot Devices Transfer Assistive Devices Gait Belt,Front Wheeled Walker Comments Mobility Comments Mod x 2 for safety for all mobility. Pt stood from bed and transfered to chair then stood again and ambulated a few feet with chair follow. OT- Gait Assessment Gait Gait Assistance Required: Moderate Assistance,2 Person Assist Assistive Devices Assistive Device Gait Belt,Front Wheeled Walker OT- Balance Assessment Sitting Balance and Reactions Static Sitting Balance Ability Fair Dynamic Sitting Balance Ability Poor M8 OT- IP Objective Assessments Start: 08/01/21 12:18 Freq: Status: Active Protocol: Document 08/01/21 11:35 [facility] (Rec: 08/01/21 12:36 [facility] [id number]) OT Gross Range of Motion Upper Extremity Range of Motion ROM Impairments grossly WFL OT Strength Comments Strength Comments BUE 4-/5 OT-Muscle Tone Assessment Muscle Tone WNL Yes M9 OT- IP Assessment and Plan Start: 08/01/21 12:18 Freq: Status: Active Protocol: Document 08/09/21 13:01 [facility] (Rec: 08/09/21 13:17 [facility] [id number]) OT Summary Assessment and Plan Potential Rehabilitation Potential Poor Analytic Complexity at Evaluation Moderate Summary OT Impairments Pain,Strength,Balance, Functional Cognition, Functional Mobility,Grooming, Dressing,Toileting,Bathing, Toilet Transfers,Shower Transfers,Activity Tolerance Progress Towards Goals Slow Progress due to Pain,Slow Progress due to Medical Issues,Slow Progress due to Activity Tolerance,Slow Progress due to Cognition Assessment Summary Pt was able to perform bed mobility and take steps today. Pt was kind and able to speak clearly throughout session. Pt will continue to benefit from therapy services. Recommendation is for SNF. Goals Grooming Goal Standby Assistance Dressing Goal Minimal Assistance Toileting Goal Minimal Assistance Bathing Goal Moderate Assistance Toilet Transfer Goal Minimal Assistance Shower Transfer Goal Minimal Assistance Patient/Caregiver Education Goal Demonstrate Post-Op Precautions Days to Meet Goals 40 Frequency of Treatment Frequency Of Treatment Once a Day Treatment Plan OT Treatment Plan ADL Training,Functional Cognition Training,Functional Mobility,Patient/Family Education,Discharge Planning Other Treatment Recommendations and Next shower with P.T. assist for Treatment Focus mobility. Discharge Recommendations OT Discharge Recommendations SNF Rehab,LTAC Transportation Needs at Discharge Wheelchair/Cabulance,Stretcher /Ambulance
--- NOTE | 2021-08-09 13:12 | CM.DPC ---
DCP Cont: Left messages with Raven Wise in intake at [facility], for intake referral was sent yesterday. Also, left message with Anaid Lowry, [employer] Testing Laboratory Technician letting her know that the intake referral was sent yesterday. She had confirmed yesterday that they had the Medicaid application, but was pending the intake. Raven's voice mail indicated that she out of the office until Friday, and Anaid is out of the office until Friday. Today is a holiday. Called [facility] to see if they have any longwall headgate operator beds which they don't. [facility] does not. Left a message with [facility]. In the message, let them know that patient does have insurance through [employer], and that Medicaid application was sent. May attempt some faciities in [place] as well. Confirmed with Li at [facility] that they are full with longwall headgate operator beds, but they have taken patients with the application for Medicaid. P: DCP to continue to work on placement. Have attempted all local facilities, as well as [facility]. Will make some calls to [place] as well. Julia Vo, RN/Dry Cleaning Checker
--- NOTE | 2021-08-09 14:22 | PM.PN.1 ---
Subjective Subjective Date Patient Seen: 08/09/21 Time Patient Seen: 14:22 Interval history: No complaints today. Did slightly better with male PT provider. Exam Vital Signs (past 8 hours): - 08/09/21 08:05 08/09/21 11:25 Temperature 97.1 F L Pulse Rate 68 71 Respiratory Rate 16 Blood Pressure 142/97 H 141/83 H Pulse Oximetry 97 Oxygen Delivery Method Room Air Oxygen Flow Rate 0 Narrative Exam Narrative: General:?Pleasant and cooperative male in no acute distress EXT: minimal pain to palpation of hips Objective Labs Result Diagrams: 08/05/21 06:05 08/05/21 06:05 [facility] Medical History Cellulitis of left leg Congestive heart failure Elevated troponin Essential hypertension Hypertension Surgical History No pertinent past surgical history Family History Mother Hypertension Sister Hypertension Social History household members: none housing: other occupational status: unemployed Smoking Status: Current every day smoker alcohol intake: current additional social history: Lives in a hotel Assessment & Plan Assessment & Plan narrative: ?1. Severe weakness, acute, possibly related to UTI, also status post left hip unipolar 06/25/2021 -Patient has been seen by social work and states he is agreeable to being housed in a rehab setting for the moment, though this may be quite difficult with his social situation -Physical therapy is assessing him daily. -MRI head to rule out old stroke was negative though there are chronic vascular changes. XR hip given continued mild pain, poor improvement thus far pending. 2. Urinary tract infection in the setting of chronic urinary retention, resolved This urinary tract infection is related to the patient's outpatient francis catheter which was changed shortly after admission. New Francis bag was attached however the Francis itself was not changed in the ED, so was changed 08/02 on the medical floor. Continue tamsulosin 0.4 mg q.d. He was restarted on ceftriaxone IV 1 g daily. UA grossly positive but culture negative. Continued antibiotics for 7 day course through 08/06/21 for complicated UTI. 3. Severe Acute on Chronic Protein Calorie Malnutrition appreciate dietary recommendations 4. Chronic diastolic heart failure Patient is currently not taking prescribed antihypertensives but does take aspirin 81 mg p.o. daily. Patient had an echocardiogram done approximately in April of 2020 and his EF was 55-60% 5.? Chronic atrial fibrillation Continue metoprolol ER 25 mg b.i.d. Adequately rate controlled on low-dose metoprolol provided here 6. Constipation -ordered daily MiraLax, oral and rectal Dulcolax as needed Time Spent With Patient Critical Care time: I spent a total of [] minutes of critical care time on this patient's care today; this time is exclusive of procedural time. Quality VTE Deep Vein Thrombosis/Pulmonary Embolism Present on Admission: No
--- NOTE | 2021-08-09 14:24 | DI.RAD.S_ITS ---
PROCEDURE: XR HIP W PEL IF DONE LT 2V INDICATIONS: L hip pain, 5 weeks after L hip surgery. TECHNIQUE: AP pelvis with lateral view(s) of the left hip(s). COMPARISON: [facility], , XR HIP W PEL IF DONE LT 2V, 07/13/2021, 14:33. FINDINGS: Bones: Left hip arthroplasty components are in stable position. No periprosthetic lucency. No unexpected fractures. Soft tissues: The visualized bowel gas pattern is normal. No suspicious soft tissue calcifications. IMPRESSION: 1. Stable left hip arthroplasty. 2. No unexpected fractures. Dictated by: Grazyna Casiano M.D. on 08/09/2021 at 15:55 Approved by: Grazyna Casiano M.D. on 08/09/2021 at 15:56
--- NOTE | 2021-08-09 14:34 | PT.IPTN ---
Current Diagnoses Weakness (07/31/21) Physical Therapy Treatment Note M2 PT-IP Current Condition Start: 08/01/21 11:58 Freq: NEEDED Status: Active Protocol: Document 08/01/21 10:40 AB (Rec: 08/01/21 12:15 AB [id number]) Physical Therapy Current Condition Current Condition Evaluation Date 08/01/21 Treatment Diagnosis UTI; H/O L TAN posterior (06/25); difficulty in walking Onset Date 07/31/21 M3 PT-IP Subjective Start: 08/01/21 11:58 Freq: NEEDED Status: Active Protocol: Document 08/09/21 14:17 HH (Rec: 08/09/21 14:34 HH [email or web address]) Subjective Physical Therapy Visit Type Type Treatment Note Visit Start Time 12:30 Visit Stop Time 12:53 Total Visit Minutes 23 Notes co-tx with OT CJ Number of OPERATING SYSTEM PROGRAMMER Visits 0 Physical Therapy Visit Comments Patient Comments Agreeable to do PT and OT Therapy Pain Assessment Pain Present Pain Present Denied Pain M4 PT-IP Mobility and Gait Start: 08/01/21 11:58 Freq: NEEDED Status: Active Protocol: Document 08/09/21 14:17 HH (Rec: 08/09/21 14:34 HH [email or web address]) PT-Bed Mobility Assessment Supine to Sit Supine to Sit Moderate Assistance,2 Person Assistance,Head of Bed Elevated Sit to Supine Sit to Supine Moderate Assistance,Bedrails Scooting Scooting to Edge of Bed Moderate Assistance Scooting Up and Down in Bed Moderate Assistance PT-Transfer Assessment Sit to and From Stand Sit to and from Stand Moderate Assistance,2 Person Assistance,Use of Upper Extremities Equipment Transfer Assistive Device Gait Belt,Front Wheeled Walker Orthotic/Prosthetic Devices or Brace: No Transfers Transfer Destination Bed,Chair Transfer Technique sit<>stand Transfer Ability Level of Assist Moderate Assistance,2 Person Assistance,Use of Upper Extremities Comments Mobility Comments pt was very pleasant in bed upon PT and OT arrival. He is responsive and answer questions appropriately. Agreeable to mobilize with therapists. He did not recall any post op precautions. Spent time educated him on precautions. He then initially used B bed rails to pull and pivot himself to R EOB but with mod A x2 after. Significant retropulsion noted . however, He was able to correct himself progressively with less supported need. He sat on EOB for a few mins with FWW support. He then push with 2 UEs on FWW and stood up with mod A x2. He stood with a WBOS and able to minimal lift his foot to take small steps to his R side. He walked approx 3-5 ft with assistance on lateral weight shift and sat down in chair with mod A x2. He then agreed to walk again with FWW. However, he was only able to tolerate 3 ft with chair follow. He then sat back down d/t fatigue. Quick screen for neuro signs and negative findings. He does drool often but that might be pt';s baseline. Handed pt over to OT to continue tx. Gait Assessment Gait Gait Assistance Required: Moderate Assistance,2 Person Assist Distance (Feet) 5 Able to Maintain Weight Bearing Status Yes During Gait Assistive Devices Assistive Device Front Wheeled Walker Gait Deviations General Gait Pattern Decreased Stride Length, Decreased Feet Clearance, Flexed Trunk,Step-to Gait Factors Limiting Gait Function Factors Limiting Gait Function Decreased Activity Tolerance, Decreased Strength,Limited Range of Motion,Pain,Poor Balance,Poor Safety Awareness PT-Balance Assessment Sitting Balance and Reactions Static Sitting Balance Ability Poor Dynamic Sitting Balance Ability Poor Standing Balance and Reactions Static Standing Balance Ability Poor Dynamic Standing Balance Ability Poor Device Used FWW M5 PT-IP Objective Assessments Start: 08/01/21 11:58 Freq: NEEDED Status: Active Protocol: Document 08/01/21 10:40 AB (Rec: 08/01/21 12:15 AB [id number]) Orientation Orientation/Cognition Level of Alertness Alert Orientation Name Safety Awareness Decreased Safety Awareness Memory Description Short Term Impaired,Electrotype Caster Impaired Strength Lower Extremity Strength Assessment Bilaterally Impaired Comments Strength Comments RLE: 4-/5 LLE: 3+/5 Muscle Tone Muscle Tone WNL Yes M6 PT-IP Treatment Start: 08/01/21 11:58 Freq: NEEDED Status: Active Protocol: Document 08/08/21 11:30 AB (Rec: 08/08/21 12:46 AB [id number]) Physical Therapy Treatment Education Education Provided Safety M7 PT-IP Assessment and Plan Start: 08/01/21 11:58 Freq: NEEDED Status: Active Protocol: Document 08/09/21 14:17 HH (Rec: 08/09/21 14:34 HH [email or web address]) PT Summary Assessment and Plan Potential Rehabilitation Potential Fair Summary Impairments Pain,ROM,Strength,Balance, Coordination,Sensation,Tone, Cognition,Bed Mobility, Transfers,Gait,Activity Tolerance Progress Towards Goals Slow Progress due to Activity Tolerance,Slow Progress - Other Assessment Summary pt was very pleasant today and agreed to work with PT and OT today. He was able to transfer to chair and walk a total of 5-7 ft with FWW MOD A x2. However, he is extremely weak possibly d/t prolonged bed bound. SNF is still the best option for him at this point. Goals Bed Mobility Goal Moderate Assistance Transfer Goal Moderate Assistance,Front Wheeled Walker Gait Goal Moderate Assistance,Front Wheel Walker Gait Distance 50 Other Goals improve bed mobility and transfers to CGA improve ambulation usng FWW 100 ft CGA Days to Meet Goals 10 Frequency of Treatment Frequency Of Treatment Once a Day Treatment Plan Physical Therapy Treatment Plan Bed Mobility Training,Transfer Training,Gait Training, Therapeutic Exercise,Balance Retraining,Post Op Education, Discharge Planning,Hot or Cold Pack,Neuromuscular Re-ed, Coordination Retraining,Manual Therapy Precautions Posterior Hip Precautions No Hip Flexion > 90 degrees,No Hip Internal Rotation,No Hip Adduction Other Precautions falls Recommendations To Nursing Amount of Assist Needed 2 Person Assist,Mechanical Lift Discharge Recommendations PT Discharge Recommendations SNF Rehab Transportation Needs at Discharge Wheelchair/Cabulance
--- NOTE | 2021-08-09 14:44 | CM.DPC ---
DCP Cont: As previously stated in last note, this senior planner left messages for two individuals already at [facility], Myesha Wise in intake, and Anaid Garcia, supervisor whipped topping for hospital team [facility]. Anaid has patient's Medicaid application for intermediate care, and Myesha was sent intake referral. Went ahead and contacted some facilities: [facility]: Left message with Judy Gore: left message with admissions [facility] [place]: denied [facility] [place]: denied [facility]: denied. [place]: Devonte in admissions may consider. Katherine is faxing referral [facility]: Li in admissions will revisit Friday. If she can get staffing, may consider. [place] [facility] in [place]: Left a message [facility] in [place]: Left a message [facility]: Only COVID patients. [facility]: Denied; [facility]: Denied unless a rate can be set by [facility]. P: DCP to continue to work on discharge. Will follow up tomorrow with Devonte at [facility], and may hear back from Judy at [facility] and [facility]. Julia Vo RN/Senior Examiner
--- NOTE | 2021-08-09 14:52 | CM.DPNOTE ---
Faxed referral packet to [facility] Attn: Devonte and received fax confirm. Katherine Terry CM Asst.
[2021-08-09 20:25] VITALS: BP 142/86; PULSE 87; RESP 18; TEMP 36.8; O2SAT 96
[2021-08-09 20:42] VITALS: BP 117/81; PULSE 89
[2021-08-09] MEDS: ASPIRIN EC 81 MG TABLET PO (20:42)
[2021-08-10] MEDS: ENOXAPARIN 40 MG/0.4 ML SYRINGE SUBCUT (08:33)
[2021-08-10] MEDS: polyethylene glycoL 3350 17 GM POWD.PACK PO (08:33)
[2021-08-10] MEDS: METOPROLOL ER 25 MG TABLET PO ×2 (08:33→22:19)
[2021-08-10] MEDS: ASPIRIN EC 81 MG TABLET PO ×2 (08:33→22:19)
[2021-08-10] MEDS: TAMSULOSIN 0.4 MG CAPSULE PO (08:33)
[2021-08-10 09:10] VITALS: BP 144/92; PULSE 79; RESP 19; TEMP 36.8; O2SAT 96
--- NOTE | 2021-08-10 09:20 | ST.IPTN ---
Visit Care Team Role Provider Type Maria Victoria Zambrano MD Emergency Provider Physician Referring Provider Address: [address] [place] [address], [id number] ARAMIS Contreras Admit Provider Physician Attending Provider Address: [address] [place] [address], [id number] NUT SHELLER Treatment Note NUT SHELLER Treatment Note Start: 08/09/21 11:38 Freq: Status: Active Protocol: Document 08/10/21 09:15 ZS (Rec: 08/10/21 09:20 ZS [id number]) Speech Pathology Treatment Note Session Time Visit Start Time 09:00 Visit Stop Time 09:15 Total Visit Minutes 15 Setting Treatment Setting Acute Care Visit Type Note Type Treatment Note Next Note Type Next Note Type Treatment Note General Information General Information Rayo Estrada is a 71-year-old man with multiple repeat visits to the emergency department and several admissions, has been living in his car for years. He was found sitting in his car outside the emergency department on 08/01/2021. day care worker was sent to see if they could help and convinced him to come into the ED for further evaluation. He was found in stool and nursing staff helped clean him , change his catheter, and feed him as he told them he had not eaten for 3 days. He states that over the last couple of days he has gotten so weak that he cannot transfer. At this time he quite literally cannot stand up which is a new finding for him. He had been able to ambulate with a walker previously. He has a history of hypertension, atrial fibrillation diastolic heart failure. On July 02 of this year he had a left femoral neck fracture with a cemented unipolar left hip placed. During that hospital and subsequent, attempts were made to get him to halfway facility for rehabilitation but he was unable/unwilling to do that. Apparently a hotel room was available for a couple of days only and he has since moved back to his car. Since the left hip surgery, he has been seen on the for hip pain, the for acute bladder infection treated with antibiotics, the for acute urinary retention and Arredondo catheter was placed, July 26 for left hip pain. With each of these visits he was able to ambulate with his walker. Rayo Estrada is readmitted for profound weakness, probable malnutrition, and failure to thrive in the setting of chronic homelessness and secondary to a less than 30 day history of a left-sided hip surgery. Subjective Identification Type Name,ID Wristband Observations/Patient Presentation Rayo was lying in his bed reading a book when clinician arrived. Rayo was alert and cooperative during session. Chief Complaint(s) Cognitive Objective Short Term Goals 1. Rayo will perform strategies to aid in cognitive tasks independently to reduce impact of cognitive deficits on daily tasks. Treatment Activities Discussed use of strategies to aid in short-term memory. Assessment Patient Response to Treatment Good Rehab Potential Good Impairments Identified Memory - Short Term,Memory - Working Progress Towards Goals Slow Progress Assessment of Overall Progress Improving Assessment of Improvement Rayo reported no opportunities to use strategies, said he does not have any PT or OT exercises at this time. Rayo reported he does not have difficulty tracking what is happening in the book he is reading. Raoy talked about going to [facility] today, indicating low awareness of current situation. Continue monitoring cognitive status. Reviewed with Patient Goals,Home Exercise Program Patient/Caregiver Understanding Good Plan Therapeutic Contents Cognitive-Linguistic Training, Home Exercise Program Provided Patient/Caregiver Instruction Home Exercise Program, Questions/Concerns Therapy Recommendations Continue with Current Program
--- NOTE | 2021-08-10 11:12 | OT.IP.TRT ---
Current Diagnoses Weakness (07/31/21) Occupational Therapy Treatment Note M2 OT-IP Current Condition Start: 08/01/21 12:18 Freq: Status: Active Protocol: Document 08/01/21 11:35 CCC (Rec: 08/01/21 12:36 CCC [id number]) Occupational Therapy Current Condition Current Condition Evaluation Date 08/01/21 Treatment Diagnosis UTI, hx of Left TAN 06/25, decreased mobility Diagnosis Onset Date 07/31/21 Post Operative Precautions Posterior Hip Precautions No Hip Flexion > 90 degrees,No Hip Internal Rotation,No Hip Adduction M3 OT- IP Subjective and Pain Start: 08/01/21 12:18 Freq: Status: Active Protocol: Document 08/10/21 11:13 CGR (Rec: 08/10/21 11:25 CGR [id number]) OT- Subjective Occupational Therapy Visit Type Type Progress Note Visit Start Time 10:55 Visit Stop Time 11:12 Total Visit Minutes 17 Notes Pt agreeable to OT services but with noticable decline in cognition/attitude today from yesterdays schedule. OT Pain Assessment Pain When Pain Assessed At Rest Pain Present Pain Present Denied Pain M4 OT- IP ADL's Start: 08/01/21 12:18 Freq: Status: Active Protocol: Document 08/10/21 11:13 CGR (Rec: 08/10/21 11:25 CGR [id number]) OT [id number] Comments OT Self-Feeding Comments not meal time OT ADL-Grooming General Evaluation Grooming Ability Standby Assistance Areas Needing Assistance Retrieving/Set-up of Grooming Items,Face Washing Comments OT Grooming Comments with firm instructions to wash face, pt will perform OT ADL-Oral Care Comments Oral Care Comments not performed, pt states he doesn't care to do it. OT ADL-Dressing General Eval Lower Body Dressing Ability Total Assistance Areas Needing Assistance Socks OT ADL-Toileting General Evaluation Toileting Ability Total Assistance Areas Needing Assistance Perform Perineal Hygiene Comments OT Toileting Comments Pt with BM needing cleaning when he stood. Total assist for back pericare OT ADL-Bathing Comments OT Bathing Comments not performed M6 OT- IP Functional Cognition Start: 08/01/21 12:18 Freq: Status: Active Protocol: Document 08/10/21 11:13 CGR (Rec: 08/10/21 11:25 CGR [id number]) Cognitive Factors Limiting Selfcare Function Cognitive Ability Level of Alertness Alert,Confusional State Patient Orientation Name Attention Span Ability Unable to Focus,Unable to Sustain Attention Ability to Follow Commands Able to Follow One Step Commands with Increased Time, Able to Follow One Step Commands with Repetition Cognitive Comments Cognitive Assessment Comments Pt with noticable change in cognition today and displays poor attitude towards all activities but still performs activities when instructed M7 OT- IP Mobility and Balance Start: 08/01/21 12:18 Freq: Status: Active Protocol: Document 08/10/21 11:13 CGR (Rec: 08/10/21 11:25 CGR [id number]) OT- Bed Mobility Assessment Rolling Type of Rolling Roll to Right Level of Assistance Standby Assistance Supine to Sit Supine to Sit Assist Minimal Assistance,Moderate Assistance Scooting Scooting to Edge of Bed Minimal Assistance,Moderate Assistance OT-Transfer Assessment Sit to and From Stand Sit to and from Stand Moderate Assistance,1 Person Assistance Technique Transfer Destination Bed,Chair Transfer Technique stand with bed/chair swap Devices Transfer Assistive Devices Gait Belt,Front Wheeled Walker Comments Mobility Comments Pt stood x 3 but was unable to take steps to chair. Nursing entered to assist with a bed/ chair swap and pt was able to stand for moving of bed and placing chair behind pt. OT- Gait Assessment Comments Gait Ability Comments unable on this date OT- Balance Assessment Sitting Balance and Reactions Static Sitting Balance Ability Good M8 OT- IP Objective Assessments Start: 08/01/21 12:18 Freq: Status: Active Protocol: Document 08/01/21 11:35 [facility] (Rec: 08/01/21 12:36 [facility] [id number]) OT Gross Range of Motion Upper Extremity Range of Motion ROM Impairments grossly WFL OT Strength Comments Strength Comments BUE 4-/5 OT-Muscle Tone Assessment Muscle Tone WNL Yes M9 OT- IP Assessment and Plan Start: 08/01/21 12:18 Freq: Status: Active Protocol: Document 08/10/21 11:13 CGR (Rec: 08/10/21 11:25 CGR [id number]) OT Summary Assessment and Plan Potential Rehabilitation Potential Poor Analytic Complexity at Evaluation Moderate Summary OT Impairments Pain,Strength,Balance, Functional Cognition, Functional Mobility,Grooming, Dressing,Toileting,Bathing, Toilet Transfers,Shower Transfers,Activity Tolerance Progress Towards Goals Slow Progress due to Pain,Slow Progress due to Medical Issues,Slow Progress due to Activity Tolerance,Slow Progress due to Cognition Assessment Summary Pt was able to perform bed mobility and take steps today. Pt was kind and able to speak clearly throughout session. Pt will continue to benefit from therapy services. Recommendation is for SNF. Goals Grooming Goal Standby Assistance Dressing Goal Minimal Assistance Toileting Goal Minimal Assistance Bathing Goal Moderate Assistance Toilet Transfer Goal Minimal Assistance Shower Transfer Goal Minimal Assistance Patient/Caregiver Education Goal Demonstrate Post-Op Precautions Days to Meet Goals 40 Frequency of Treatment Frequency Of Treatment Once a Day Treatment Plan OT Treatment Plan ADL Training,Functional Cognition Training,Functional Mobility,Patient/Family Education,Discharge Planning Other Treatment Recommendations and Next pt's abilities change Treatment Focus drastically from day to day. Assess for what is appropriate . Discharge Recommendations OT Discharge Recommendations SNF Rehab,LTAC Transportation Needs at Discharge Wheelchair/Cabulance,Stretcher /Ambulance
--- NOTE | 2021-08-10 12:11 | P.PN_ITS ---
Subjective Subjective Date Patient Seen: 08/10/21 Time Patient Seen: 12:11 Interval history: ?No complaints today. Exam Vital Signs (past 8 hours): - 08/10/21 09:10 Temperature 98.3 F Pulse Rate 79 Respiratory Rate 19 Blood Pressure 144/92 H Pulse Oximetry 96 Oxygen Delivery Method Room Air Oxygen Flow Rate 0 Narrative Exam Narrative: General:?Pleasant and cooperative male in no acute distress EXT: minimal pain to palpation of hips Objective Labs Result Diagrams: 08/05/21 06:05 08/05/21 06:05 [facility] Medical History Cellulitis of left leg Congestive heart failure Elevated troponin Essential hypertension Hypertension Surgical History No pertinent past surgical history Family History Mother Hypertension Sister Hypertension Social History household members: none housing: other occupational status: unemployed Smoking Status: Current every day smoker alcohol intake: current additional social history: Lives in a hotel Assessment & Plan Assessment & Plan narrative: ?1. Severe weakness, acute, possibly related to UTI, also status post left hip unipolar 06/25/2021 -Patient has been seen by social work and states he is agreeable to being housed in a rehab setting for the moment, though this may be quite difficult with his social situation -Physical therapy is assessing him daily. -MRI head to rule out old stroke was negative though there are chronic vascular changes. XR hip given continued mild pain was without fractures. 2. Urinary tract infection in the setting of chronic urinary retention, resolved This urinary tract infection is related to the patient's outpatient francis catheter which was changed shortly after admission. New Francis bag was attached however the Francis itself was not changed in the ED, so was changed 08/02 on the medical floor. Continue tamsulosin 0.4 mg q.d. He was restarted on ceftriaxone IV 1 g daily. UA grossly positive but culture negative. Continued antibiotics for 7 day course through 08/06/21 for complicated UTI. 3. Severe Acute on Chronic Protein Calorie Malnutrition appreciate dietary recommendations 4. Chronic diastolic heart failure Patient is currently not taking prescribed antihypertensives but does take aspirin 81 mg p.o. daily. Patient had an echocardiogram done approximately in April of 2020 and his EF was 55-60% 5.? Chronic atrial fibrillation Continue metoprolol ER 25 mg b.i.d. Adequately rate controlled on low-dose metoprolol provided here 6. Constipation -ordered daily MiraLax, oral and rectal Dulcolax as needed Time Spent With Patient Critical Care time: I spent a total of [] minutes of critical care time on this patient's care today; this time is exclusive of procedural time. Quality VTE Deep Vein Thrombosis/Pulmonary Embolism Present on Admission: No
--- NOTE | 2021-08-10 13:21 | CM.DPC ---
Addendum entered by Julia Vo R.N. 08/10/21 14:59: Called [facility] to follow up. Devonte is the linux unix system administrator that this production control planner talked to yesterday, and he is out of the office. Left a voice mail for Sondra, she is the admission coordinator at [facility]. Let her know in the voice mail message that this case was discussed with Devonte yesterday, and he mentioned that they may have some short and fci beds. Will follow up again. Original Note: DCP Cont: Janey Dubon from [facility] showed up. Patient's friend, Aric Wise, was also present. Updated Janey that a new intake was sent to home and community, as well as the Medicaid application that was already sent for parts counterman care. Let her know that two facilities, [facility] and [facility] are two possibilities. Let her know that the barrier is parts counterman care, and having a facility accept a patient on a fci basis, especially since an assessment has not yet been done by an assigned ELECTRIC MOTOR CONTROLS ASSEMBLER with [facility]. At this time, it is not clear who this is, as messages have been left with Sugar Garcia, who handles hospitalist patients, and she has not been in the office. Janey indicated that she will also contact Sugar. Janey asked patient's friend, Aric Wise, if he would be willing to look into guardian ship should patient not be able to make further decisions on his own. He stated, he would be interested, they have known each other since high school. According to OT, patient noted more confusion today. P: DCP to continue to follow and work on placement. Julia Vo RN/Android Ios Developer
--- NOTE | 2021-08-10 13:36 | PT.IPTN ---
Current Diagnoses Weakness (07/31/21) Physical Therapy Treatment Note M2 PT-IP Current Condition Start: 08/01/21 11:58 Freq: NEEDED Status: Active Protocol: Document 08/01/21 10:40 AB (Rec: 08/01/21 12:15 AB [id number]) Physical Therapy Current Condition Current Condition Evaluation Date 08/01/21 Treatment Diagnosis UTI; H/O L TAN posterior (06/25); difficulty in walking Onset Date 07/31/21 M3 PT-IP Subjective Start: 08/01/21 11:58 Freq: NEEDED Status: Active Protocol: Document 08/10/21 13:27 HH (Rec: 08/10/21 13:36 [id number]) Subjective Physical Therapy Visit Type Type Treatment Note Visit Start Time 13:10 Visit Stop Time 13:25 Total Visit Minutes 15 Number of STEP FINISHER Visits 0 Physical Therapy Visit Comments Patient Comments Agreeable to do PT Therapy Pain Assessment Pain Present Pain Present Denied Pain M4 PT-IP Mobility and Gait Start: 08/01/21 11:58 Freq: NEEDED Status: Active Protocol: Document 08/10/21 13:27 HH (Rec: 08/10/21 13:36 [id number]) PT-Transfer Assessment Sit to and From Stand Sit to and from Stand Minimal Assistance,1 Person Assistance,Use of Upper Extremities Equipment Transfer Assistive Device Gait Belt,Front Wheeled Walker Orthotic/Prosthetic Devices or Brace: No Transfers Transfer Destination Chair Transfer Technique sit<>stand Transfer Ability Level of Assist Minimal Assistance,1 Person Assistance Comments Mobility Comments Pt was pleasant in chair upon PT arrival. His friend was present but he left for therapy session. Pt agreeable to do PT. He was wheeled close to closet to attempt to walk to sink counter. He initially was able to stand up with trunk lean and UE pushed off from armrests with min A. However, pt wasnt strong enough to walk so he decided to sit with poor control. He agreed to focus on STS today. He completed another 4 times with cues to maintain upright posture with min to mod A. He did report fatigue after. He was wheeled to bedside and chair alarm was activated. Call light placed winthin reach. Gait Assessment Comments Gait Comments unable PT-Balance Assessment Sitting Balance and Reactions Static Sitting Balance Ability Poor Dynamic Sitting Balance Ability Poor Standing Balance and Reactions Static Standing Balance Ability Poor Dynamic Standing Balance Ability Poor Device Used FWW M5 PT-IP Objective Assessments Start: 08/01/21 11:58 Freq: NEEDED Status: Active Protocol: Document 08/01/21 10:40 AB (Rec: 08/01/21 12:15 AB [id number]) Orientation Orientation/Cognition Level of Alertness Alert Orientation Name Safety Awareness Decreased Safety Awareness Memory Description Short Term Impaired,Intermediate Impaired Strength Lower Extremity Strength Assessment Bilaterally Impaired Comments Strength Comments RLE: 4-/5 LLE: 3+/5 Muscle Tone Muscle Tone WNL Yes M6 PT-IP Treatment Start: 08/01/21 11:58 Freq: NEEDED Status: Active Protocol: Document 08/08/21 11:30 AB (Rec: 08/08/21 12:46 AB [id number]) Physical Therapy Treatment Education Education Provided Safety M7 PT-IP Assessment and Plan Start: 08/01/21 11:58 Freq: NEEDED Status: Active Protocol: Document 08/10/21 13:27 HH (Rec: 08/10/21 13:36 HH [id number]) PT Summary Assessment and Plan Potential Rehabilitation Potential Fair Summary Impairments Pain,ROM,Strength,Balance, Coordination,Sensation,Tone, Cognition,Bed Mobility, Transfers,Gait,Activity Tolerance Progress Towards Goals Slow Progress due to Activity Tolerance,Slow Progress - Other Assessment Summary pt was very pleasant again today. He completed STS with min to mod A for 5 times but unable to amb d/t weakness. Pt is progressing very slowly and need extensive care at this point. SNF is still the best option for him. Goals Bed Mobility Goal Moderate Assistance Transfer Goal Moderate Assistance,Front Wheeled Walker Gait Goal Moderate Assistance,Front Wheel Walker Gait Distance 50 Other Goals improve bed mobility and transfers to [facility] improve ambulation usng FWW 100 ft CGA Days to Meet Goals 10 Frequency of Treatment Frequency Of Treatment Once a Day Treatment Plan Physical Therapy Treatment Plan Bed Mobility Training,Transfer Training,Gait Training, Therapeutic Exercise,Balance Retraining,Post Op Education, Discharge Planning,Hot or Cold Pack,Neuromuscular Re-ed, Coordination Retraining,Manual Therapy Precautions Posterior Hip Precautions No Hip Flexion > 90 degrees,No Hip Internal Rotation,No Hip Adduction Other Precautions falls Recommendations To Nursing Amount of Assist Needed 2 Person Assist,Mechanical Lift Discharge Recommendations PT Discharge Recommendations SNF Rehab Transportation Needs at Discharge Wheelchair/Cabulance
[2021-08-10] MEDS: BISACODYL 5 MG TABLET 10 MG PO (15:46)
[2021-08-10 19:11] VITALS: BP 125/78; PULSE 78; RESP 18; TEMP 36.9; O2SAT 95
[2021-08-10 22:19] VITALS: BP 128/78; PULSE 87
[2021-08-10 23:49] VITALS: BP 122/78; PULSE 83
--- NOTE | 2021-08-11 07:55 | PC.NURSE ---
Patient resting with eyes closed, breathing unlabored on RA, easy to wake, denies pain. Arredondo catheter draining. Bed alarm on. Call light in reach.
[2021-08-11 08:07] VITALS: BP 137/101; PULSE 82
[2021-08-11] MEDS: polyethylene glycoL 3350 17 GM POWD.PACK PO (08:07)
[2021-08-11] MEDS: METOPROLOL ER 25 MG TABLET PO ×2 (08:07→20:52)
[2021-08-11] MEDS: ASPIRIN EC 81 MG TABLET PO ×2 (08:07→20:52)
[2021-08-11] MEDS: ENOXAPARIN 40 MG/0.4 ML SYRINGE SUBCUT (08:07)
[2021-08-11] MEDS: TAMSULOSIN 0.4 MG CAPSULE PO (08:07)
[2021-08-11 09:00] VITALS: BP 116/77; PULSE 86
[2021-08-11 09:20] VITALS: BP 116/77; PULSE 86; RESP 16; TEMP 36.6; O2SAT 97
--- NOTE | 2021-08-11 11:39 | ST.IPTN ---
Visit Care Team Role Provider Type Maria Victoria Zambrano MD Emergency Provider Physician Referring Provider Address: [address] [place] [address], [id number] ARAMIS Contreras Admit Provider Physician Attending Provider Address: [address] [place] [address], [id number] RADAR ENGINEER Treatment Note RADAR ENGINEER Treatment Note Start: 08/09/21 11:38 Freq: Status: Active Protocol: Document 08/11/21 11:36 MG (Rec: 08/11/21 11:39 MG [id number]) Speech Pathology Treatment Note Session Time Visit Start Time 11:25 Visit Stop Time 11:35 Total Visit Minutes 10 Setting Treatment Setting Acute Care Visit Type Note Type Treatment Note Next Note Type Next Note Type Treatment Note General Information General Information Rayo Estrada is a 71-year-old man with multiple repeat visits to the emergency department and several admissions, has been living in his car for years. He was found sitting in his car outside the emergency department on 08/01/2021. handy worker was sent to see if they could help and convinced him to come into the ED for further evaluation. He was found in stool and nursing staff helped clean him , change his catheter, and feed him as he told them he had not eaten for 3 days. He states that over the last couple of days he has gotten so weak that he cannot transfer. At this time he quite literally cannot stand up which is a new finding for him. He had been able to ambulate with a walker previously. He has a history of hypertension, atrial fibrillation diastolic heart failure. On July 02 of this year he had a left femoral neck fracture with a cemented unipolar left hip placed. During that hospital and subsequent, attempts were made to get him to detention facility for rehabilitation but he was unable/unwilling to do that. Apparently a hotel room was available for a couple of days only and he has since moved back to his car. Since the left hip surgery, he has been seen on the for hip pain, the for acute bladder infection treated with antibiotics, the for acute urinary retention and Arredondo catheter was placed, July 26 for left hip pain. With each of these visits he was able to ambulate with his walker. Rayo Estrada is readmitted for profound weakness, probable malnutrition, and failure to thrive in the setting of chronic homelessness and secondary to a less than 30 day history of a left-sided hip surgery. Subjective Identification Type Name,ID Wristband Observations/Patient Presentation Rayo was lying in bed watching TV upon RADAR ENGINEER arrival. He was agreeable to RADAR ENGINEER entering and providing therapy but had very little engagement. Chief Complaint(s) Cognitive Objective Short Term Goals 1. Rayo will perform strategies to aid in cognitive tasks independently to reduce impact of cognitive deficits on daily tasks. Treatment Activities Discussed use of strategies to aid in short-term memory. Assessment Patient Response to Treatment Good Rehab Potential Good Impairments Identified Memory - Short Term,Memory - Working Progress Towards Goals Slow Progress Assessment of Overall Progress Improving Assessment of Improvement Rayo was disengaged with activities on this day. Even when the television was turned off, he did not appear interested to speak to this RADAR ENGINEER. Reviewed with Patient Goals,Home Exercise Program Patient/Caregiver Understanding Good Plan Therapeutic Contents Cognitive-Linguistic Training, Home Exercise Program Provided Patient/Caregiver Instruction Home Exercise Program, Questions/Concerns Therapy Recommendations Continue with Current Program
--- NOTE | 2021-08-11 14:58 | PT-IP ANOTE ---
Attempted to see pt at 14:58, pt refused x3 stating I am just NOT in the mood
--- NOTE | 2021-08-11 15:14 | PM.PN.1 ---
Subjective Subjective Date Patient Seen: 08/11/21 Time Patient Seen: 15:14 Interval history: No complaints today. Exam Vital Signs (past 8 hours): - 08/11/21 08:07 08/11/21 09:00 08/11/21 09:20 Temperature 97.9 F Pulse Rate 82 86 86 Respiratory Rate 16 Blood Pressure 137/101 H 116/77 116/77 Pulse Oximetry 97 Oxygen Delivery Method Room Air Oxygen Flow Rate 0 Narrative Exam Narrative: General:?Pleasant and cooperative male in no acute distress Ext: no edema or joint effusions Objective Labs Result Diagrams: 08/05/21 06:05 08/05/21 06:05 [facility] Medical History Cellulitis of left leg Congestive heart failure Elevated troponin Essential hypertension Hypertension Surgical History No pertinent past surgical history Family History Mother Hypertension Sister Hypertension Social History household members: none housing: other occupational status: unemployed Smoking Status: Current every day smoker alcohol intake: current additional social history: Lives in a hotel Assessment & Plan Assessment & Plan narrative: ?1. Severe weakness, acute, possibly related to UTI, also status post left hip unipolar 06/25/2021 -Patient has been seen by social work and states he is agreeable to being housed in a rehab setting for the moment, though this may be quite difficult with his social situation -Physical therapy is assessing him daily. -MRI head to rule out old stroke was negative though there are chronic vascular changes. XR hip given continued mild pain was without fractures. 2. Urinary tract infection in the setting of chronic urinary retention, resolved This urinary tract infection is related to the patient's outpatient francis catheter which was changed shortly after admission. New Francis bag was attached however the Francis itself was not changed in the ED, so was changed 08/02 on the medical floor. Continue tamsulosin 0.4 mg q.d. He was restarted on ceftriaxone IV 1 g daily. UA grossly positive but culture negative. Continued antibiotics for 7 day course through 08/06/21 for complicated UTI. 3. Severe Acute on Chronic Protein Calorie Malnutrition appreciate dietary recommendations 4. Chronic diastolic heart failure Patient is currently not taking prescribed antihypertensives but does take aspirin 81 mg p.o. daily. Patient had an echocardiogram done approximately in April of 2020 and his EF was 55-60% 5.? Chronic atrial fibrillation Continue metoprolol ER 25 mg b.i.d. Adequately rate controlled on low-dose metoprolol provided here 6. Constipation -ordered daily MiraLax, oral and rectal Dulcolax as needed Time Spent With Patient Critical Care time: I spent a total of [] minutes of critical care time on this patient's care today; this time is exclusive of procedural time. Quality VTE Deep Vein Thrombosis/Pulmonary Embolism Present on Admission: No
[2021-08-11 19:00] VITALS: BP 131/77; PULSE 75; RESP 14; TEMP 37.1; O2SAT 97
[2021-08-11 20:52] VITALS: BP 131/77; PULSE 75
[2021-08-11 23:00] VITALS: BP 133/78; PULSE 68
[2021-08-12 07:48] VITALS: BP 138/68; PULSE 73; RESP 14; TEMP 36.1; O2SAT 100
[2021-08-12] MEDS: ENOXAPARIN 40 MG/0.4 ML SYRINGE SUBCUT (08:39)
[2021-08-12] MEDS: polyethylene glycoL 3350 17 GM POWD.PACK PO (08:39)
[2021-08-12] MEDS: TAMSULOSIN 0.4 MG CAPSULE PO (08:39)
[2021-08-12] MEDS: ASPIRIN EC 81 MG TABLET PO ×2 (08:39→20:20)
[2021-08-12] MEDS: METOPROLOL ER 25 MG TABLET PO ×2 (08:39→20:21)
--- NOTE | 2021-08-12 10:49 | PC.NURSE ---
Dr. Quiroga notified of patient wanting to leave AMA. Patient told PIECE WORK CHECKER that he needs to leave today to go car shopping with his friend. No new orders received.
--- NOTE | 2021-08-12 10:53 | PM.PN.1 ---
Subjective Subjective Date Patient Seen: 08/12/21 Time Patient Seen: 10:53 Interval history: No complaints today. He stated he was going to leave today to go shopping for cars with his friend. Was able to convince patient this was not a good idea. His plan was to return to the ER after. Exam Vital Signs (past 8 hours): - 08/12/21 07:48 Temperature 97.0 F L Pulse Rate 73 Respiratory Rate 14 Blood Pressure 138/68 Pulse Oximetry 100 Oxygen Delivery Method Room Air Oxygen Flow Rate 0 Narrative Exam Narrative: General:?Pleasant and cooperative male in no acute distress Ext: no edema or joint effusions Objective Labs Result Diagrams: 08/05/21 06:05 08/05/21 06:05 [facility] Medical History Cellulitis of left leg Congestive heart failure Elevated troponin Essential hypertension Hypertension Surgical History No pertinent past surgical history Family History Mother Hypertension Sister Hypertension Social History household members: none housing: other occupational status: unemployed Smoking Status: Current every day smoker alcohol intake: current additional social history: Lives in a hotel Assessment & Plan Assessment & Plan narrative: 1. Severe weakness, acute, possibly related to UTI, also status post left hip unipolar 06/25/2021 -Patient has been seen by social work and states he is agreeable to being housed in a rehab setting for the moment, though this may be quite difficult with his social situation -Physical therapy is assessing him daily. -MRI head to rule out old stroke was negative though there are chronic vascular changes. XR hip given continued mild pain was without fractures. 2. Urinary tract infection in the setting of chronic urinary retention, resolved This urinary tract infection is related to the patient's outpatient francis catheter which was changed shortly after admission. New Francis bag was attached however the Francis itself was not changed in the ED, so was changed 08/02 on the medical floor. Continue tamsulosin 0.4 mg q.d. He was restarted on ceftriaxone IV 1 g daily. UA grossly positive but culture negative. Continued antibiotics for 7 day course through 08/06/21 for complicated UTI. 3. Severe Acute on Chronic Protein Calorie Malnutrition appreciate dietary recommendations 4. Chronic diastolic heart failure Patient is currently not taking prescribed antihypertensives but does take aspirin 81 mg p.o. daily. Patient had an echocardiogram done approximately in April of 2020 and his EF was 55-60% 5.? Chronic atrial fibrillation Continue metoprolol ER 25 mg b.i.d. Adequately rate controlled on low-dose metoprolol provided here 6. Constipation -ordered daily MiraLax, oral and rectal Dulcolax as needed Time Spent With Patient Critical Care time: I spent a total of [] minutes of critical care time on this patient's care today; this time is exclusive of procedural time. Quality VTE Deep Vein Thrombosis/Pulmonary Embolism Present on Admission: No
--- NOTE | 2021-08-12 16:14 | CM.DANOTE ---
DCP/continued: CM team continues to work on long-term/SNF placement. Up to this point we have been unsuccessful given patient's disposition after SNF. Patient currently homeless living in his car. ANIMAL HOSPITAL OFFICE SUPERVISOR requested PT/OT work with patient daily to attempt to get patient strong enough to d/c to penitentiary or patient's previous living arrangement. P: Pending. MANUELA
--- NOTE | 2021-08-12 16:39 | PT-IP ANOTE ---
Pt refused PT twice this afternoon.
[2021-08-12 20:00] VITALS: BP 153/88; PULSE 86; RESP 16; TEMP 36.7; O2SAT 96
[2021-08-12 20:21] VITALS: BP 153/88; PULSE 86
[2021-08-12 21:04] VITALS: BP 135/82; PULSE 80
[2021-08-13] VITALS (8 sets, daily range): BP systolic 136–152; BP diastolic 60–113; PULSE 71–88; RESP 18; TEMP 36.3–36.6; O2SAT 96–99
[2021-08-13] MEDS: polyethylene glycoL 3350 17 GM POWD.PACK PO (08:52)
[2021-08-13] MEDS: BISACODYL 5 MG TABLET 10 MG PO (08:52)
[2021-08-13] MEDS: TAMSULOSIN 0.4 MG CAPSULE PO (08:52)
[2021-08-13] MEDS: ASPIRIN EC 81 MG TABLET PO ×2 (08:52→20:14)
[2021-08-13] MEDS: ENOXAPARIN 40 MG/0.4 ML SYRINGE SUBCUT (08:52)
[2021-08-13] MEDS: METOPROLOL ER 25 MG TABLET PO ×2 (08:53→20:14)
--- NOTE | 2021-08-13 09:47 | P.PN_ITS ---
Subjective Subjective Date Patient Seen: 08/13/21 Time Patient Seen: 08:00 Interval history: Today he has no complaints. He is not sure he wants to work with physical therapy today. Exam Vital Signs (past 8 hours): - 08/13/21 08:00 08/13/21 08:53 Temperature 97.3 F L Pulse Rate 71 71 Respiratory Rate 18 Blood Pressure 152/113 H 152/113 H Pulse Oximetry 97 Oxygen Delivery Method Room Air Oxygen Flow Rate 0 Narrative Exam Narrative: General: Pleasant and cooperative male in no acute distress Ext: no edema or joint effusions Objective Labs Result Diagrams: 08/05/21 06:05 08/05/21 06:05 [facility] Medical History Cellulitis of left leg Congestive heart failure Elevated troponin Essential hypertension Hypertension Surgical History No pertinent past surgical history Family History Mother Hypertension Sister Hypertension Social History household members: none housing: other occupational status: unemployed Smoking Status: Current every day smoker alcohol intake: current additional social history: Lives in a hotel Assessment & Plan Assessment & Plan narrative: 1. Severe weakness, acute, possibly related to UTI, also status post left hip unipolar 06/25/2021 -Patient has been seen by social work and states he is agreeable to being housed in a rehab setting for the moment, though this may be quite difficult with his social situation -Physical therapy is assessing him daily. -MRI head to rule out old stroke was negative though there are chronic vascular changes. XR hip given continued mild pain was without fractures. 2. Urinary tract infection in the setting of chronic urinary retention, resolved This urinary tract infection is related to the patient's outpatient francis catheter which was changed shortly after admission. New Francis bag was attached however the Francis itself was not changed in the ED, so was changed 08/02 on the medical floor. Continue tamsulosin 0.4 mg q.d. He was restarted on ceftriaxone IV 1 g daily. UA grossly positive but culture negative. Continued antibiotics for 7 day course through 08/06/21 for complicated UTI. 3. Severe Acute on Chronic Protein Calorie Malnutrition appreciate dietary recommendations 4. Chronic diastolic heart failure Patient is currently not taking prescribed antihypertensives but does take aspirin 81 mg p.o. daily. Patient had an echocardiogram done approximately in April of 2020 and his EF was 55-60% 5. Chronic atrial fibrillation Continue metoprolol ER 25 mg b.i.d. Adequately rate controlled on low-dose metoprolol provided here 6. Constipation -ordered daily MiraLax, oral and rectal Dulcolax as needed Time Spent With Patient Critical Care time: I spent a total of [] minutes of critical care time on this patient's care today; this time is exclusive of procedural time. Quality VTE Deep Vein Thrombosis/Pulmonary Embolism Present on Admission: No
--- NOTE | 2021-08-13 12:05 | ST.IPTN ---
Visit Care Team Role Provider Type Maria Victoria Zambrano MD Emergency Provider Physician Referring Provider Address: [address] [place] [address], [id number] ARAMIS Contreras Admit Provider Physician Attending Provider Address: [address] [place] [address], [id number] FIREARMS SPECIALIST Treatment Note FIREARMS SPECIALIST Treatment Note Start: 08/09/21 11:38 Freq: Status: Active Protocol: Document 08/13/21 11:56 ZS (Rec: 08/13/21 12:02 ZS [id number]) Speech Pathology Treatment Note Session Time Visit Start Time 11:35 Visit Stop Time 11:50 Total Visit Minutes 15 Setting Treatment Setting Acute Care Visit Type Note Type Treatment Note General Information General Information Rayo Estrada is a 71-year-old man with multiple repeat visits to the emergency department and several admissions, has been living in his car for years. He was found sitting in his car outside the emergency department on 08/01/2021. civil service worker was sent to see if they could help and convinced him to come into the ED for further evaluation. He was found in stool and nursing staff helped clean him , change his catheter, and feed him as he told them he had not eaten for 3 days. He states that over the last couple of days he has gotten so weak that he cannot transfer. At this time he quite literally cannot stand up which is a new finding for him. He had been able to ambulate with a walker previously. He has a history of hypertension, atrial fibrillation diastolic heart failure. On July 02 of this year he had a left femoral neck fracture with a cemented unipolar left hip placed. During that hospital and subsequent, attempts were made to get him to [facility] facility for rehabilitation but he was unable/unwilling to do that. Apparently a hotel room was available for a couple of days only and he has since moved back to his car. Since the left hip surgery, he has been seen on the for hip pain, the for acute bladder infection treated with antibiotics, the for acute urinary retention and Arredondo catheter was placed, July 26 for left hip pain. With each of these visits he was able to ambulate with his walker. Rayo Estrada is readmitted for profound weakness, probable malnutrition, and failure to thrive in the setting of chronic homelessness and secondary to a less than 30 day history of a left-sided hip surgery. Subjective Identification Type Name,ID Wristband Observations/Patient Presentation Rayo was lying semi-reclined in his bed speaking to his friend when clinician arrived. Chief Complaint(s) Cognitive Objective Short Term Goals 1. Rayo will perform strategies to aid in cognitive tasks independently to reduce impact of cognitive deficits on daily tasks. Treatment Activities Discussed use of strategies to aid in short-term memory. Discussed discharge from speech therapy with continued use of provided strategies. Assessment Patient Response to Treatment Good Rehab Potential Good Impairments Identified Memory - Short Term,Memory - Working Progress Towards Goals Slow Progress Assessment of Overall Progress Improving Assessment of Improvement Rayo demonstrated confusion and attempted to get out of bed during visit. Clinician and Rayo's friend reminded him he is still healing and should remain in bed. Rayo was agreeable to this and remained in bed. Confusion has been consistent across previous visits, with Rayo demonstrating low situational awareness. Discharging from speech therapy as Rayo demonstrates knowledge of memory strategies and confusion has remained unchanged across multiple days . Reviewed with Patient Goals,Home Exercise Program Patient/Caregiver Understanding Good Plan Therapeutic Contents Cognitive-Linguistic Training, Home Exercise Program Provided Patient/Caregiver Instruction Home Exercise Program, Questions/Concerns Therapy Recommendations Discharge to Home Exercise Program Reason for Discharge Confusion persistent and unchanged across multiple sessions.
--- NOTE | 2021-08-13 12:29 | PT.IPTN ---
Current Diagnoses Weakness (07/31/21) Physical Therapy Treatment Note M2 PT-IP Current Condition Start: 08/01/21 11:58 Freq: NEEDED Status: Active Protocol: Document 08/01/21 10:40 AB (Rec: 08/01/21 12:15 AB [id number]) Physical Therapy Current Condition Current Condition Evaluation Date 08/01/21 Treatment Diagnosis UTI; H/O L TAN posterior (06/25); difficulty in walking Onset Date 07/31/21 M3 PT-IP Subjective Start: 08/01/21 11:58 Freq: NEEDED Status: Active Protocol: Document 08/13/21 12:29 JG (Rec: 08/13/21 12:57 JG [id number]) Subjective Physical Therapy Visit Type Type Treatment Note Visit Start Time 12:02 Visit Stop Time 12:29 Total Visit Minutes 27 Notes IRAIDA Ojeda directly supervised by PT Kierra Number of DANCE THERAPIST Visits 0 Physical Therapy Visit Comments Patient Comments Pt was in bed w/HOB elev and knees elev talking with friend who brought him coffee. Pt was agreeable to do PT and attempt transfer to bedside chair. Therapy Pain Assessment Pain When Pain Assessed During Mobility Pain Present Pain Present Pain Reported Location Left Knee Pain Behaviors Facial Grimacing,Holding Area Pain Management Techniques Modification of Treatment,Re- positioning Left Hip Pain Behaviors Facial Grimacing,Holding Area Pain Management Techniques Modification of Treatment,Re- positioning M4 PT-IP Mobility and Gait Start: 08/01/21 11:58 Freq: NEEDED Status: Active Protocol: Document 08/13/21 12:29 JG (Rec: 08/13/21 12:57 JG [id number]) PT-Bed Mobility Assessment Supine to Sit Supine to Sit Moderate Assistance,Head of Bed Elevated,Bedrails Sit to Supine Sit to Supine Moderate Assistance,1 Person Assistance Scooting Scooting to Edge of Bed Moderate Assistance Scooting Up and Down in Bed Moderate Assistance PT-Transfer Assessment Sit to and From Stand Sit to and from Stand Moderate Assistance,Maximum Assistance,2 Person Assistance ,Use of Upper Extremities Equipment Transfer Assistive Device Gait Belt,Front Wheeled Walker Orthotic/Prosthetic Devices or Brace: No Transfer Ability Level of Assist Moderate Assistance,2 Person Assistance,Use of Upper Extremities Comments Mobility Comments Pt was pleasant upon arrival and agreeable to do PT. Pt was pleased that his friend brought him coffee. Pt's friend left for the therapy session. Pt wanted to attempt transfer to and eat lunch in chair. Pt required max cues and mod assist for bed mobility and getting to EOB. Pt required mod-max assist 2P for sit<>stand. Once in standing, min-mod assist 2P was required. Pt was limited in weight shifting ability and was only able to take a couple small steps. Pt required 15-30 sec rest btw sit<>stand. Pt was able to perform 7 sit<>stand. Pt reported L knee pain and L lateral thigh/hip pain/ weakness. Gait Assessment Comments Gait Comments Pt attempted but was unable to take more than a couple very small steps even with max cueing and mod assist 2P. PT-Balance Assessment Sitting Balance and Reactions Static Sitting Balance Ability Poor Dynamic Sitting Balance Ability Poor Standing Balance and Reactions Static Standing Balance Ability Poor Dynamic Standing Balance Ability Poor Device Used FWW M5 PT-IP Objective Assessments Start: 08/01/21 11:58 Freq: NEEDED Status: Active Protocol: Document 08/01/21 10:40 AB (Rec: 08/01/21 12:15 AB [id number]) Orientation Orientation/Cognition Level of Alertness Alert Orientation Name Safety Awareness Decreased Safety Awareness Memory Description Short Term Impaired,Recycling Sorter Impaired Strength Lower Extremity Strength Assessment Bilaterally Impaired Comments Strength Comments RLE: 4-/5 LLE: 3+/5 Muscle Tone Muscle Tone WNL Yes M6 PT-IP Treatment Start: 08/01/21 11:58 Freq: NEEDED Status: Active Protocol: Document 08/13/21 12:57 JLevi (Rec: 08/13/21 12:58 BIRD [id number]) Physical Therapy Treatment Education Education Provided Safety Other Treatments Other Treatment Performed Pt educated on safety re transfers, amb, FWW management . M7 PT-IP Assessment and Plan Start: 08/01/21 11:58 Freq: NEEDED Status: Active Protocol: Document 08/13/21 12:29 JG (Rec: 08/13/21 12:57 JG [id number]) PT Summary Assessment and Plan Potential Rehabilitation Potential Fair Summary Impairments Pain,ROM,Strength,Balance, Coordination,Sensation,Tone, Cognition,Bed Mobility, Transfers,Gait,Activity Tolerance Progress Towards Goals Slow Progress due to Activity Tolerance,Slow Progress - Other Assessment Summary Pt participated in therapy session and completed 7 sit<> stand w/mod/max A 2P. Pt self- reported that he was feeling bilat LE weakness and R knee pain which limited his weightshifting during attempted amb. Goals Bed Mobility Goal Moderate Assistance Transfer Goal Moderate Assistance,Front Wheeled Walker Gait Goal Moderate Assistance,Front Wheel Walker Gait Distance 50 Other Goals improve bed mobility and transfers to CGA improve ambulation usng FWW 100 ft CGA Days to Meet Goals 10 Frequency of Treatment Frequency Of Treatment Once a Day Treatment Plan Physical Therapy Treatment Plan Bed Mobility Training,Transfer Training,Gait Training, Therapeutic Exercise,Balance Retraining,Post Op Education, Discharge Planning,Hot or Cold Pack,Neuromuscular Re-ed, Coordination Retraining,Manual Therapy Other Recommendations and Next Treatment bed mob, LE ex, precautions, Focus transfers, increase gait as able. Precautions Posterior Hip Precautions No Hip Flexion > 90 degrees,No Hip Internal Rotation,No Hip Adduction Other Precautions falls Recommendations To Nursing Amount of Assist Needed 2 Person Assist,Mechanical Lift Discharge Recommendations PT Discharge Recommendations SNF Rehab Transportation Needs at Discharge Wheelchair/Cabulance
[2021-08-13] MEDS: LACTULOSE 20 GM/30 ML SOLUTION PO (15:16)
--- NOTE | 2021-08-13 15:40 | CM.DPC ---
Addendum entered by Julia Vo R.N. 08/13/21 16:30: Sent an email to Jenni Anglin regarding status and needing assessment CORBIN for placement. Included this case operator's phone number, and she has this case operator's email. Original Note: DCP Cont: Spoke to Syd at [facility]. He was returning call from care management, but did not know on what patient, since message on what patient was mentioned. Gave him updated. He indicated that patient' SHIPFITTERS SUPERVISOR is Jenni Anglin. Her phone number is: [phone]. Attempted to reach out to SHIPFITTERS SUPERVISOR, had not heard back. Decided to call Buck Garcia, the hospitalist [facility] supervisor picking crew. Her number is: [phone]. Left her a message as well. Magy at [facility] has denied patient. She stated, there are no beds, and I am the computer analyst supervisor, and don't know why you were told that there were beds available. Left a message with Li at [facility] as well. This case operator and JACK Ruffin, met with patient. Aric Wise, patient's friend, was also in the room. Updated patient on status. Asked him if he is willing to go to a facility, may not be close, in order for him to be placed. Patient stated, he would. He had indicated yesterday, he wanted to leave to his car. He is aware that his car is unhabital to live in at this time. His friend, Aric, is willing to transport to any accepting facility that is able to accept patient. Attempting to locate a halfway facility with the option of going to long chain dyeing machine operator care. Have not yet been able to get SHIPFITTERS SUPERVISOR to come and do an assessment for a rate. P: DCP to continue to work on case. Will reach out to the [facility] to see if there are any accepting facilties for patient. Julia Vo RN/Sleeping Car Porter
[2021-08-13] MEDS: BISACODYL 10 MG SUPP PR (18:30)
--- NOTE | 2021-08-13 18:59 | PC.NURSE ---
Pt arrived from PACU this afternoon Alert. She remains on 2 L NC as on RA 02 sats are 88% this afternoon. She reports pain to back 7-5/10 this afternoon well controlled with prn oxycodone 10mg, vestoril, tylenol. Encouraged to use IS LS CTA diminished in bases. She is able to void usin the bed hartley moving all extremities 5/5 and denies numbness to lower extremities. pedal pulses +2. Dressing to back C/D/I. Noted slight anxiety HR 110'S, seemed to be improved with medications. IVF NS @ 100ml/hr. She is afebrile BP WNL.Denies n/v and advances well to general diet this evening.
[2021-08-14] VITALS (7 sets, daily range): BP systolic 130–138; BP diastolic 85–93; PULSE 75–83; RESP 18; TEMP 36.6–36.8; O2SAT 97–98
--- NOTE | 2021-08-14 07:53 | CM.DPC ---
Addendum entered by Julia Vo R.N. 08/14/21 15:50: Alexandria in admissions at [facility] stated, they don't have inspector tool beds. Addendum entered by Julia Vo R.N. 08/14/21 15:32: The [facility] called back and indicated that they only have short term beds, not halfway. Did give some history on the patient as well. Addendum entered by Julia Vo R.N. 08/14/21 14:33: Attempted these facilities today: [facility] in [place]. [phone]-Dwrd 20 day stays for rehab, no halfway beds available [facility]: [phone]-rath message if availabilities. Nati at [facility]: [phone]: Left message, they did state that they have beds, but did not get details on patient. [facility] in [place]: [phone]: Left a message for admissions, [facility], to call back. [facility]: Left message with Judy in admissions [facility]: Left message with Li in admissions. Have attempted all other facilities in [place], as well as [facility] in [place]. Left message to admissions. Called Destiney at [facility], and they do not take halfway beds. Will continue to look for placement. Addendum entered by Julia Vo R.N. 08/14/21 12:54: Called [facility] in [place] and spoke to Ellen. She stated, they only have short term beds, 20 days or less. Addendum entered by Julia Vo R.N. 08/14/21 12:39: Spoke to Lili at [facility]. Confirmed that she is currently in for Jenni Anglin. She indicated, Jenni might be back in tohe office tomorrow, if not, you can go through me. Asked her if she can probably do the assessment for patient today, as stated again, attempting to find placement for patient [facility]. She stated, she has no openings for today. Went ahead and called Sugar Garcia, the data processing supervisor for hospital through Medicaid, and left her another message. Had left her a message yesterday as well. Called Judy at [facility] today and left her a message about this patient and have not heard back. Left a message with Li at [facility], and have not yet heard back. Found some facilities in the [facility], and gave them to Katherine, metal forger's assistant, to see if she can call them. If this transportation planner has some time later today, will help in calling some rehab facilities in those areas. Original Note: DCP Cont: Jenni Anglin had sent a return email that she is out of the office this week. She gave two other alternate supervisor body assembly, Kingsley Friday: phone: [phone]. Attempted to call her, but phone number is not in service. Called other alternate name given. Lili. Her number is: [phone]. Did leave her a message regarding placement for patient and him needing an assessment as soon as possible for a rate. Stephenie Wise at [facility] called back, and she indicated, now that they have the application, the hospital ENROLLMENT ADVISOR should take over, which is Jenni Anglin. This week, is Lili. Will await call back. Have so far found a place, [facility], in the [place] area, but have not yet contacted them. Will also follow up with Jduy at [facility], did not yet hear back from her. Julia Vo RN/Marketing Team Lead
[2021-08-14] MEDS: ASPIRIN EC 81 MG TABLET PO ×2 (10:00→20:00)
[2021-08-14] MEDS: polyethylene glycoL 3350 17 GM POWD.PACK PO (10:00)
[2021-08-14] MEDS: METOPROLOL ER 25 MG TABLET PO ×2 (10:00→19:59)
[2021-08-14] MEDS: ENOXAPARIN 40 MG/0.4 ML SYRINGE SUBCUT (10:00)
[2021-08-14] MEDS: TAMSULOSIN 0.4 MG CAPSULE PO (10:00)
--- NOTE | 2021-08-14 11:58 | PT.IPTN ---
Current Diagnoses Weakness (07/31/21) Physical Therapy Treatment Note M2 PT-IP Current Condition Start: 08/01/21 11:58 Freq: NEEDED Status: Active Protocol: Document 08/01/21 10:40 AB (Rec: 08/01/21 12:15 AB [id number]) Physical Therapy Current Condition Current Condition Evaluation Date 08/01/21 Treatment Diagnosis UTI; H/O L TAN posterior (06/25); difficulty in walking Onset Date 07/31/21 M3 PT-IP Subjective Start: 08/01/21 11:58 Freq: NEEDED Status: Active Protocol: Document 08/14/21 11:44 KS (Rec: 08/14/21 12:23 KS [id number]) Subjective Physical Therapy Visit Type Type Treatment Note Visit Start Time 11:44 Visit Stop Time 11:58 Total Visit Minutes 14 Number of CAST SHELL GRINDER Visits 1 Physical Therapy Visit Comments Patient Comments Pt agreeable to transfer to chair for lunch. M4 PT-IP Mobility and Gait Start: 08/01/21 11:58 Freq: NEEDED Status: Active Protocol: Document 08/14/21 11:44 KS (Rec: 08/14/21 12:23 KS [id number]) PT-Bed Mobility Assessment Supine to Sit Supine to Sit Moderate Assistance,Head of Bed Elevated,Bedrails Scooting Scooting to Edge of Bed Maximum Assistance PT-Transfer Assessment Sit to and From Stand Sit to and from Stand Maximum Assistance,2 Person Assistance,Use of Upper Extremities Equipment Transfer Assistive Device Gait Belt,Front Wheeled Walker Orthotic/Prosthetic Devices or Brace: No Transfers Transfer Destination Chair Transfer Technique Stand Step Pivot Transfer Ability Level of Assist Maximum Assistance,2 Person Assistance,Use of Upper Extremities Comments Mobility Comments Pt in bed upon arrival and agreed to transfer to chair for lunch. REHABILITATION CLERK arrived for additional assistance. Mod A for sup<>sit, Max A x2 and max cues for sit<>stand w/ FWW. Pt then performed stand step pivot Max A x2 from bed to chair. Unable to step forward w/ LLE requiring assistance to slide foot forward. Max A for slow descent when sitting. Pt has difficulty following instructions and is also limited by weakness. Pt left in chair w/ alarm on and all needs in reach. Gait Assessment Gait Gait Assistance Required: Maximum Assistance,2 Person Assist Assistive Devices Assistive Device Front Wheeled Walker Factors Limiting Gait Function Factors Limiting Gait Function Decreased Activity Tolerance, Decreased Strength,Difficulty Following Directions, Incoordination,Poor Balance, Poor Safety Awareness Comments Gait Comments Stand step pivot only. Max A x2. Pt only able to move LE very small amount requiring assistance to advance LLE. PT-Balance Assessment Sitting Balance and Reactions Static Sitting Balance Ability Poor Dynamic Sitting Balance Ability Poor Standing Balance and Reactions Static Standing Balance Ability Poor Dynamic Standing Balance Ability Poor Device Used FWW M5 PT-IP Objective Assessments Start: 08/01/21 11:58 Freq: NEEDED Status: Active Protocol: Document 08/01/21 10:40 AB (Rec: 08/01/21 12:15 AB [id number]) Orientation Orientation/Cognition Level of Alertness Alert Orientation Name Safety Awareness Decreased Safety Awareness Memory Description Short Term Impaired,Mcc Impaired Strength Lower Extremity Strength Assessment Bilaterally Impaired Comments Strength Comments RLE: 4-/5 LLE: 3+/5 Muscle Tone Muscle Tone WNL Yes M6 PT-IP Treatment Start: 08/01/21 11:58 Freq: NEEDED Status: Active Protocol: Document 08/14/21 11:44 KS (Rec: 08/14/21 12:23 KS [id number]) Physical Therapy Treatment Exercises Exercises Ankle Pumps,Quad Sets Education Education Provided Safety Other Treatments Other Treatment Performed Encouraged pt to perform ankle pumps for blood flow. He had difficulty completing quad sets correctly with verbal and tactile cues. M7 PT-IP Assessment and Plan Start: 08/01/21 11:58 Freq: NEEDED Status: Active Protocol: Document 08/14/21 11:44 KS (Rec: 08/14/21 12:23 KS [id number]) PT Summary Assessment and Plan Potential Rehabilitation Potential Fair Summary Impairments Pain,ROM,Strength,Balance, Coordination,Sensation,Tone, Cognition,Bed Mobility, Transfers,Gait,Activity Tolerance Progress Towards Goals Slow Progress due to Activity Tolerance,Slow Progress - Other Assessment Summary Pt continues to require Mod A x1-2 for bed mobility and Max A x2 for sit to stand and transfers. Pt able to complete stand step pivot to chair w/ Max A x2 and max cues. Unable to advance LLE, reuqiring assistance to move foot forward, able to take very small shuffling steps w/ RLE. Max A for stand<>sit in chair. Difficulty following commands and cues for mobility and LE exericises to improve strength . Pt will require SNF to improve functional mobility. Goals Bed Mobility Goal Moderate Assistance Transfer Goal Moderate Assistance,Front Wheeled Walker Gait Goal Moderate Assistance,Front Wheel Walker Gait Distance 50 Other Goals improve bed mobility and transfers to CGA improve ambulation usng FWW 100 ft CGA Days to Meet Goals 10 Frequency of Treatment Frequency Of Treatment Once a Day Treatment Plan Physical Therapy Treatment Plan Bed Mobility Training,Transfer Training,Gait Training, Therapeutic Exercise,Balance Retraining,Post Op Education, Discharge Planning,Hot or Cold Pack,Neuromuscular Re-ed, Coordination Retraining,Manual Therapy Other Recommendations and Next Treatment bed mob, LE ex, precautions, Focus transfers, increase gait as able. Precautions Posterior Hip Precautions No Hip Flexion > 90 degrees,No Hip Internal Rotation,No Hip Adduction Other Precautions falls Recommendations To Nursing Amount of Assist Needed 2 Person Assist,Mechanical Lift Discharge Recommendations PT Discharge Recommendations SNF Rehab Transportation Needs at Discharge Wheelchair/Cabulance
--- NOTE | 2021-08-14 14:00 | OT.IP.TRT ---
Current Diagnoses Weakness (07/31/21) Occupational Therapy Treatment Note M2 OT-IP Current Condition Start: 08/01/21 12:18 Freq: Status: Active Protocol: Document 08/01/21 11:35 [facility] (Rec: 08/01/21 12:36 [facility] [id number]) Occupational Therapy Current Condition Current Condition Evaluation Date 08/01/21 Treatment Diagnosis UTI, hx of Left TAN 06/25, decreased mobility Diagnosis Onset Date 07/31/21 Post Operative Precautions Posterior Hip Precautions No Hip Flexion > 90 degrees,No Hip Internal Rotation,No Hip Adduction M3 OT- IP Subjective and Pain Start: 08/01/21 12:18 Freq: Status: Active Protocol: Document 08/14/21 14:00 [facility] (Rec: 08/14/21 14:07 [facility] [id number]) OT- Subjective Occupational Therapy Visit Type Type Treatment Note Visit Start Time 13:48 Visit Stop Time 13:59 Total Visit Minutes 11 Occupational Therapy Visit Comments Patient Comments Pt agreed to reposition in the recliner with OT. Patient/Caregiver Goals Pt states, I do not care. M7 OT- IP Mobility and Balance Start: 08/01/21 12:18 Freq: Status: Active Protocol: Document 08/14/21 14:00 [facility] (Rec: 08/14/21 14:07 [facility] [id number]) OT-Transfer Assessment Sit to and From Stand Sit to and from Stand Moderate Assistance,1 Person Assistance Comments Mobility Comments Pt able to assist OT with strong use of his arms on the armrests of the recliner to assist to stand, but unable to let go to grab the handles of the FWW at this time. Pt is dependent for positioning needs. Chair alarm atteched to pt and call light placed in front of him. OT- Balance Assessment Sitting Balance and Reactions Static Sitting Balance Ability Poor Comments Other Balance Tests/Deviations/Treatment Pt tends to lean into : posterior tilt and latareal tilt to the left while seated in the recliner. Pt not open to having therapist adjust his positioning at this time. M8 OT- IP Objective Assessments Start: 08/01/21 12:18 Freq: Status: Active Protocol: Document 08/01/21 11:35 [facility] (Rec: 08/01/21 12:36 [facility] [id number]) OT Gross Range of Motion Upper Extremity Range of Motion ROM Impairments grossly WFL OT Strength Comments Strength Comments BUE 4-/5 OT-Muscle Tone Assessment Muscle Tone WNL Yes M9 OT- IP Assessment and Plan Start: 08/01/21 12:18 Freq: Status: Active Protocol: Document 08/14/21 14:00 [facility] (Rec: 08/14/21 14:07 [facility] [id number]) OT Summary Assessment and Plan Potential Rehabilitation Potential Poor Analytic Complexity at Evaluation Moderate Summary OT Impairments Pain,Strength,Balance, Functional Cognition, Functional Mobility,Grooming, Dressing,Toileting,Bathing, Toilet Transfers,Shower Transfers,Activity Tolerance Progress Towards Goals Slow Progress due to Pain,Slow Progress due to Medical Issues,Slow Progress due to Activity Tolerance,Slow Progress due to Cognition Assessment Summary Pt able to assist to stand to help initially reposition himself farther back in the recliner. Afterwards pt not open to more repositioning needs. Pt would benefit from SNF prior to LTC. Goals Grooming Goal Standby Assistance Dressing Goal Moderate Assistance Toileting Goal Moderate Assistance Bathing Goal Moderate Assistance Toilet Transfer Goal Moderate Assistance Shower Transfer Goal Moderate Assistance Patient/Caregiver Education Goal Demonstrate Post-Op Precautions Days to Meet Goals 40 Frequency of Treatment Frequency Of Treatment Once a Day Treatment Plan OT Treatment Plan ADL Training,Functional Cognition Training,Functional Mobility,Patient/Family Education,Discharge Planning Discharge Recommendations OT Discharge Recommendations SNF Rehab,LTAC Transportation Needs at Discharge Wheelchair/Cabulance,Stretcher /Ambulance
--- NOTE | 2021-08-14 18:24 | P.PN_ITS ---
Subjective Subjective Interval history: The patient denies any acute complaints this morning. He reports good PO intake. He denies any issues with urination or bowel movements. Exam Vital Signs (past 8 hours): Oxygen Delivery Method Room Air Oxygen Flow Rate 0 Const Other: The patient is laying in bed comfortably upon my entering the room, in no apparent acute distress. Eyes Other: No scleral icterus appreciated. Resp Other: Diminished breath sounds bilaterally, but without adventitious breath sounds. Cardio Other: Regular rate and rhythm. S1 and S2 heart sounds auscultated with no extra heart sounds or murmurs appreciated. No peripheral edema noted. GI Other: Soft, non-distended, non-tender. Bowel sounds present. Extrem Other: Palpable dorsalis pedis pulses bilaterally. Objective Labs Result Diagrams: 08/05/21 06:05 08/05/21 06:05 [facility] Medical History Cellulitis of left leg Congestive heart failure Elevated troponin Essential hypertension Hypertension Surgical History No pertinent past surgical history Family History Mother Hypertension Sister Hypertension Social History household members: none housing: other occupational status: unemployed Smoking Status: Current every day smoker alcohol intake: current additional social history: Lives in a hotel Assessment & Plan Assessment & Plan narrative: 1. Severe weakness, acute, possibly related to UTI, also status post left hip unipolar 06/25/2021 -Patient has been seen by social work and states he is agreeable to being housed in a rehab setting for the moment, though this may be quite difficult with his social situation -Physical therapy is assessing him daily. -MRI head to rule out old stroke was negative though there are chronic vascular changes. XR hip given continued mild pain was without fractures. 2. Urinary tract infection in the setting of chronic urinary retention, resolved This urinary tract infection is related to the patient's outpatient francis catheter which was changed shortly after admission. New Francis bag was attached however the Francis itself was not changed in the ED, so was changed 08/02 on the medical floor. Continue tamsulosin 0.4 mg q.d. He was restarted on ceftriaxone IV 1 g daily. UA grossly positive but culture negative. Continued antibiotics for 7 day course through 08/06/21 for complicated UTI. 3. Severe Acute on Chronic Protein Calorie Malnutrition appreciate dietary recommendations 4. Chronic diastolic heart failure Patient is currently not taking prescribed antihypertensives but does take aspirin 81 mg p.o. daily. Patient had an echocardiogram done approximately in April of 2020 and his EF was 55-60% 5.? Chronic atrial fibrillation Continue metoprolol ER 25 mg b.i.d. Adequately rate controlled on low-dose metoprolol provided here 6. Constipation -ordered daily MiraLax, oral and rectal Dulcolax as needed Time Spent With Patient Critical Care time: I spent a total of [] minutes of critical care time on this patient's care today; this time is exclusive of procedural time. Quality VTE Deep Vein Thrombosis/Pulmonary Embolism Present on Admission: No
[2021-08-15 09:25] VITALS: BP 149/97; PULSE 65; RESP 18; TEMP 36.3; O2SAT 97
[2021-08-15 09:42] VITALS: BP 149/97; PULSE 78
[2021-08-15] MEDS: METOPROLOL ER 25 MG TABLET PO ×2 (09:42→20:55)
[2021-08-15] MEDS: ENOXAPARIN 40 MG/0.4 ML SYRINGE SUBCUT (09:42)
[2021-08-15] MEDS: TAMSULOSIN 0.4 MG CAPSULE PO (09:43)
[2021-08-15] MEDS: ASPIRIN EC 81 MG TABLET PO ×2 (09:43→20:55)
[2021-08-15] MEDS: polyethylene glycoL 3350 17 GM POWD.PACK PO (09:44)
--- NOTE | 2021-08-15 11:01 | PT.IPTN ---
Current Diagnoses Weakness (07/31/21) Physical Therapy Treatment Note M2 PT-IP Current Condition Start: 08/01/21 11:58 Freq: NEEDED Status: Active Protocol: Document 08/01/21 10:40 AB (Rec: 08/01/21 12:15 AB [id number]) Physical Therapy Current Condition Current Condition Evaluation Date 08/01/21 Treatment Diagnosis UTI; H/O L TAN posterior (06/25); difficulty in walking Onset Date 07/31/21 M3 PT-IP Subjective Start: 08/01/21 11:58 Freq: NEEDED Status: Active Protocol: Document 08/15/21 10:28 LJ (Rec: 08/15/21 11:00 LJ [id number]) Subjective Physical Therapy Visit Type Type Treatment Note Visit Start Time 09:46 Visit Stop Time 10:06 Total Visit Minutes 20 Number of WOOD MACHINIST Visits 2 Physical Therapy Visit Comments Patient Comments Pt agreeable to transfer to chair. Therapy Pain Assessment Pain When Pain Assessed During Mobility Pain Present Pain Present Denied Pain M4 PT-IP Mobility and Gait Start: 08/01/21 11:58 Freq: NEEDED Status: Active Protocol: Document 08/15/21 10:28 LJ (Rec: 08/15/21 11:00 LJ [id number]) PT-Bed Mobility Assessment Supine to Sit Supine to Sit Contact Guard Assistance,1 Person Assistance,Head of Bed Elevated,Bedrails Scooting Scooting to Edge of Bed Standby Assistance PT-Transfer Assessment Sit to and From Stand Sit to and from Stand Moderate Assistance,2 Person Assistance,Use of Upper Extremities Equipment Transfer Assistive Device Gait Belt,Front Wheeled Walker Orthotic/Prosthetic Devices or Brace: No Transfers Transfer Destination Chair Transfer Technique small, shuffling steps Transfer Ability Level of Assist Moderate Assistance,2 Person Assistance,Use of Upper Extremities Comments Mobility Comments With head of bed elevated, pt able to move LEs off side of bed with verbal cueing and occasional tactile cueing. Able to scoot to edge of bed SBA. His sitting balance is and he does not need more than occasional CGA while sitting on side of bed. Pt able to stand on second sit>stand attempt. Cues for standing tall. Pt instructed to shuffle feet to make his way in front of the chair. Pt attempted several times to reach for the arm rests prior to being situated in front of the chair . Required verbal cues for FWW management. Prior to being in front of chair pt reached for arm rest and began to sit. He needed assist to safely swing his buttocks toward chair. He was able to control his descent into chair and position himself properly. Pt assisted with reclining in the chair and given all needs within reach. SOLUTION CONSULTANT who assisted with transfer remained in room with pt for bed change. Gait Assessment Gait Gait Assistance Required: Moderate Assistance,2 Person Assist Assistive Devices Assistive Device Gait Belt,Front Wheeled Walker Factors Limiting Gait Function Factors Limiting Gait Function Decreased Activity Tolerance, Decreased Strength,Difficulty Following Directions, Incoordination,Limited Range of Motion,Poor Balance,Poor Safety Awareness Comments Gait Comments Pt able to take several small shuffling steps from side of bed to chair. Still limited in moving RLE forward but able to lift feet slightly off floor. He still remains in flexed trunk position during standing and ambulation. M5 PT-IP Objective Assessments Start: 08/01/21 11:58 Freq: NEEDED Status: Active Protocol: Document 08/01/21 10:40 AB (Rec: 08/01/21 12:15 AB [id number]) Orientation Orientation/Cognition Level of Alertness Alert Orientation Name Safety Awareness Decreased Safety Awareness Memory Description Short Term Impaired,Mcfp Impaired Strength Lower Extremity Strength Assessment Bilaterally Impaired Comments Strength Comments RLE: 4-/5 LLE: 3+/5 Muscle Tone Muscle Tone WNL Yes M6 PT-IP Treatment Start: 08/01/21 11:58 Freq: NEEDED Status: Active Protocol: Document 08/15/21 10:28 KARISHMA (Rec: 08/15/21 11:00 KARISHMA [id number]) Physical Therapy Treatment Exercises Exercises Ankle Pumps,Gluteal Sets,Quad Sets Other Treatments Other Treatment Performed Pt confused on how to perform quad and glute sets. M7 PT-IP Assessment and Plan Start: 08/01/21 11:58 Freq: NEEDED Status: Active Protocol: Document 08/15/21 10:28 KARISHMA (Rec: 08/15/21 11:00 LJ [id number]) PT Summary Assessment and Plan Potential Rehabilitation Potential Fair Summary Impairments Pain,ROM,Strength,Balance, Coordination,Sensation,Tone, Cognition,Bed Mobility, Transfers,Gait,Activity Tolerance Progress Towards Goals Slow Progress due to Activity Tolerance,Slow Progress - Other Assessment Summary Pt progressing with mobility. He does not require as much assistance however still requires a moderate amount of cueing for walker management, posture, and safety. He continues to ignore hip precautions. Goals Bed Mobility Goal Moderate Assistance Transfer Goal Moderate Assistance,Front Wheeled Walker Gait Goal Moderate Assistance,Front Wheel Walker Gait Distance 50 Other Goals improve bed mobility and transfers to CGA improve ambulation usng FWW 100 ft CGA Days to Meet Goals 10 Frequency of Treatment Frequency Of Treatment Once a Day Treatment Plan Physical Therapy Treatment Plan Bed Mobility Training,Transfer Training,Gait Training, Therapeutic Exercise,Balance Retraining,Post Op Education, Discharge Planning,Hot or Cold Pack,Neuromuscular Re-ed, Coordination Retraining,Manual Therapy Other Recommendations and Next Treatment bed mob, LE ex, precautions, Focus transfers, increase gait as able. Precautions Posterior Hip Precautions No Hip Flexion > 90 degrees,No Hip Internal Rotation,No Hip Adduction Other Precautions falls Recommendations To Nursing Amount of Assist Needed 2 Person Assist,Mechanical Lift Discharge Recommendations PT Discharge Recommendations SNF Rehab Transportation Needs at Discharge Wheelchair/Cabulance
--- NOTE | 2021-08-15 11:07 | DIET.PN1 ---
Dietary Progress Note RD Note: Mr. Cade is on LOS d15 secondary to poor discharge plan. Pt tolerating meals with POs averaging 100%. Pts protein calorie malnutrition is socially sourced (food insecurity) as he is a homeless gentleman living in his car with poor mobility. Pt with food access while hospitalized, however, pt at high risk for continued PCM if once again living out of car. Ht: 180.34 cm Wt: 99.9 kg BMI: 30.7 Last BM: 08/13/21 (08/13/21 21:18) MNA: 10 Ray Score: 16 Diet: 08/01/21 Breakfast Heart Healthy Diet Diet Modifications: Nutrition Percent Meal Consumed 100% 08/15/21 09:25 Percent Meal Consumed 100% 08/14/21 18:00 Percent Meal Consumed 100% 08/14/21 17:54 Percent Meal Consumed 100% 08/14/21 12:33 Percent Meal Consumed 100% 08/14/21 09:32 Percent Meal Consumed 100% 08/13/21 17:25 Percent Meal Consumed 75% 08/13/21 13:30 Labs: RBC 4.02 X10^6/uL (4.5-5.9) L 08/05/21 06:05 Hgb 13.0 g/dL (13.5-17.5) L 08/05/21 06:05 Hct 38.8 % (41-53) L 08/05/21 06:05 Creatinine 0.67 mg/dL (0.66-1.25) 08/05/21 06:05 Lactate 1.6 mmol/L (0.7-2.1) 07/31/21 20:52 NT-Pro-B Natriuret Pep 3000 pg/mL (<125) H 07/31/21 20:52 Electronically Signed by: Dominique Calderon 08/15/21 11:07 Clinical Dietitian [address] [address]
--- NOTE | 2021-08-15 11:30 | OT.IP.TRT ---
Current Diagnoses Weakness (07/31/21) Occupational Therapy Treatment Note M2 OT-IP Current Condition Start: 08/01/21 12:18 Freq: Status: Active Protocol: Document 08/01/21 11:35 [facility] (Rec: 08/01/21 12:36 [facility] [id number]) Occupational Therapy Current Condition Current Condition Evaluation Date 08/01/21 Treatment Diagnosis UTI, hx of Left TAN 06/25, decreased mobility Diagnosis Onset Date 07/31/21 Post Operative Precautions Posterior Hip Precautions No Hip Flexion > 90 degrees,No Hip Internal Rotation,No Hip Adduction M3 OT- IP Subjective and Pain Start: 08/01/21 12:18 Freq: Status: Active Protocol: Document 08/15/21 12:49 [facility] (Rec: 08/15/21 13:14 [facility] [id number]) OT- Subjective Occupational Therapy Visit Type Type Treatment Note Visit Start Time 11:30 Visit Stop Time 11:43 Total Visit Minutes 13 Occupational Therapy Visit Comments Patient Comments Pt requesting to have the urinal as forgot that he had a catheter in place. Pt agreed to try to stand up and reposition himself. Patient/Caregiver Goals When asked pt what are his goals, pt states, I just don 't know, whatever. OT Pain Assessment Pain When Pain Assessed At Rest Pain Present Pain Present Denied Pain M4 OT- IP ADL's Start: 08/01/21 12:18 Freq: Status: Active Protocol: Document 08/15/21 12:49 [facility] (Rec: 08/15/21 13:14 [facility] [id number]) OT ADL-Grooming Comments OT Grooming Comments Pt able to wash his face after set-up of wasah cloth. OT ADL-Oral Care Comments Oral Care Comments Pt refusing at this time. OT ADL-Dressing Comments OT Dressing Comments NOt performed. OT ADL-Toileting Comments OT Toileting Comments Not performed OT ADL-Bathing Comments OT Bathing Comments not performed. Sponge bath more appropriate at this time. M6 OT- IP Functional Cognition Start: 08/01/21 12:18 Freq: Status: Active Protocol: Document 08/15/21 12:49 [facility] (Rec: 08/15/21 13:14 [facility] [id number]) Cognitive Factors Limiting Selfcare Function Cognitive Ability Level of Alertness Alert,Confusional State Patient Orientation Name Attention Span Ability Unable to Focus,Unable to Sustain Attention Ability to Follow Commands Able to Follow One Step Commands with Increased Time, Able to Follow One Step Commands with Repetition Safety Awareness Underestimates Need for Assistance Problem Solving Ability Unable to Identify Errors, Needs Assist to Identify Solutions Executive Function Ability Unable to Switch Focus,Unable to Filter Distractions,Unable to Remember Details Cognitive Comments Cognitive Assessment Comments Continued decreased attitude or care of needs. However pt able to participate in therapy when asked. M7 OT- IP Mobility and Balance Start: 08/01/21 12:18 Freq: Status: Active Protocol: Document 08/15/21 12:49 [facility] (Rec: 08/15/21 13:14 [facility] [id number]) OT-Transfer Assessment Sit to and From Stand Sit to and from Stand Contact Guard Assistance, Minimal Assistance,1 Person Assistance Comments Mobility Comments Attempted to see how pt would do to stand so able to reposition himself as getting uncomfortable in the recliner. 1st attempt MARVA x1 , and then second time close SBA and able to stand to FWW on his own. Pt has heavy use of arms on the armrests to push to stand up from. Due to pt's inconsistency and decreased safety awareness had pt sit back down. OT- Balance Assessment Sitting Balance and Reactions Static Sitting Balance Ability Good Dynamic Sitting Balance Ability Fair Standing Balance and Reactions Static Standing Balance Ability Poor Comments Other Balance Tests/Deviations/Treatment Noted better posture to : midline today while seated in the recliner. M8 OT- IP Objective Assessments Start: 08/01/21 12:18 Freq: Status: Active Protocol: Document 08/01/21 11:35 [facility] (Rec: 08/01/21 12:36 [facility] [id number]) OT Gross Range of Motion Upper Extremity Range of Motion ROM Impairments grossly WFL OT Strength Comments Strength Comments BUE 4-/5 OT-Muscle Tone Assessment Muscle Tone WNL Yes M9 OT- IP Assessment and Plan Start: 08/01/21 12:18 Freq: Status: Active Protocol: Document 08/15/21 12:49 [facility] (Rec: 08/15/21 13:14 [facility] [id number]) OT Summary Assessment and Plan Potential Rehabilitation Potential Fair Analytic Complexity at Evaluation Moderate Summary OT Impairments Pain,Strength,Balance, Functional Cognition, Functional Mobility,Grooming, Dressing,Toileting,Bathing, Toilet Transfers,Shower Transfers,Activity Tolerance Progress Towards Goals Progressing Toward Goals,Slow Progress due to Activity Tolerance,Slow Progress due to Cognition Assessment Summary Pt able to come to stand today with close SBA and FWW , however only stood and did not take any steps or transfer. Unsure of pt's capabilities due to his poor insight , cognitive deficits and at times decreased initiation of movements. Pt would benefit from skilled rehab initially and then LTC placement. Goals Grooming Goal Standby Assistance Dressing Goal Moderate Assistance Toileting Goal Moderate Assistance Bathing Goal Moderate Assistance Toilet Transfer Goal Minimal Assistance Shower Transfer Goal Minimal Assistance Patient/Caregiver Education Goal Demonstrate Post-Op Precautions Days to Meet Goals 40 Frequency of Treatment Frequency Of Treatment Once a Day Treatment Plan OT Treatment Plan ADL Training,Functional Cognition Training,Functional Mobility,Patient/Family Education,Discharge Planning Other Treatment Recommendations and Next fusion juncture grinder front of sink for Treatment Focus grooming needs with recliner behind him. Discharge Recommendations OT Discharge Recommendations SNF Rehab,LTAC Transportation Needs at Discharge Wheelchair/Cabulance,Stretcher /Ambulance
--- NOTE | 2021-08-15 13:30 | PC.NURSE ---
1115- Patient wanted to go to bed at 1125. Explained to him that he should stay up until after lunch, he is still sitting up in chair and comfortable. Voices no complaints of pain or discomfort. Resting comfortably.
--- NOTE | 2021-08-15 13:36 | CM.DPC ---
DCP Cont: Per OT, pt was able to stand CGA today and unclear if pt is waxing/waning in his abilities vs cognition vs self motivation. Potential that pt may more consistently maintain ability to ambulate/mobilize without as much assist and could more safely d/c to lower level of care or usp type situation while awaiting LTC placement. If pt continues to consistently required 1-2PA then SNF would likely be best d/c plan prior to Adult Family Home type situation. HANK called pt's assigned SW through [facility] Jenni Anglin [phone] and her vm continues to state that she is off work this week and her coworker Lili is covering for her. HANK called Lili at [facility] [phone] and left msg requesting assessment not be postponed until Jenni returns next week but to be assessed this week urgently. Return msg from Lemhi stating that if assessment needed prior to Jenni's return then will need to call Grazyna Garcia [facility] [employer] to request assessment be assigned to another worker for this week. HANK called [facility] [employer] Grazyna Garcia [phone] and left msg requesting urgent assignment to another worker for assessment this week as SNF's have no open LTC beds and AFHs are requiring assessment and daily rate before they will consider and SNF's will not accept for rehab until better LTC plan determined and assessment is the damon link in moving forward placement. Plan: SW to follow closely for return call from Grazyna Garcia to determine if another worker can be assigned to assess pt for LTC daily rate at likely AF this week before Jenni Anglin returns next week to the office for work. JACK Wiley
--- NOTE | 2021-08-15 18:29 | PM.PN.1 ---
Subjective Subjective Interval history: Patient reports feeling well this morning. He denies any acute complaints. He is aware that he is pending placement. We discussed the need to work with PT/OT for his recovery. Exam Vital Signs (past 8 hours): Oxygen Delivery Method Room Air Oxygen Flow Rate 0 Narrative Exam Narrative: Const Other: The patient is laying in bed comfortably upon my entering the room, in no apparent acute distress. Eyes Other: No scleral icterus appreciated. Resp Other: Diminished breath sounds bilaterally, but without adventitious breath sounds. Cardio Other: Regular rate and rhythm. S1 and S2 heart sounds auscultated with no extra heart sounds or murmurs appreciated. No peripheral edema noted. GI Other: Soft, non-distended, non-tender. Bowel sounds present. Extrem Other: Palpable dorsalis pedis pulses bilaterally. Objective Labs Result Diagrams: 08/05/21 06:05 08/05/21 06:05 [facility] Medical History Cellulitis of left leg Congestive heart failure Elevated troponin Essential hypertension Hypertension Surgical History No pertinent past surgical history Family History Mother Hypertension Sister Hypertension Social History household members: none housing: other occupational status: unemployed Smoking Status: Current every day smoker alcohol intake: current additional social history: Lives in a hotel Assessment & Plan Assessment & Plan narrative: 1. Severe weakness, acute, possibly related to UTI, also status post left hip unipolar 06/25/2021 -Patient has been seen by social work and states he is agreeable to being housed in a rehab setting for the moment, though this may be quite difficult with his social situation -Physical therapy is assessing him daily. -MRI head to rule out old stroke was negative though there are chronic vascular changes. XR hip given continued mild pain was without fractures. 2. Urinary tract infection in the setting of chronic urinary retention, resolved This urinary tract infection is related to the patient's outpatient francis catheter which was changed shortly after admission. New Francis bag was attached however the Francis itself was not changed in the ED, so was changed 08/02 on the medical floor. Continue tamsulosin 0.4 mg q.d. He was restarted on ceftriaxone IV 1 g daily. UA grossly positive but culture negative. Continued antibiotics for 7 day course through 08/06/21 for complicated UTI. 3. Severe Acute on Chronic Protein Calorie Malnutrition appreciate dietary recommendations 4. Chronic diastolic heart failure Patient is currently not taking prescribed antihypertensives but does take aspirin 81 mg p.o. daily. Patient had an echocardiogram done approximately in April of 2020 and his EF was 55-60% 5.? Chronic atrial fibrillation Continue metoprolol ER 25 mg b.i.d. Adequately rate controlled on low-dose metoprolol provided here 6. Constipation -ordered daily MiraLax, oral and rectal Dulcolax as needed Time Spent With Patient Critical Care time: I spent a total of [] minutes of critical care time on this patient's care today; this time is exclusive of procedural time. Quality VTE Deep Vein Thrombosis/Pulmonary Embolism Present on Admission: No
[2021-08-15 19:00] VITALS: BP 130/83; PULSE 86; RESP 18; TEMP 36.6; O2SAT 97
[2021-08-15 21:25] VITALS: BP 130/83; PULSE 81
[2021-08-16 08:30] VITALS: BP 148/101; PULSE 56; RESP 17; TEMP 36.3; O2SAT 95
[2021-08-16] MEDS: TAMSULOSIN 0.4 MG CAPSULE PO (09:19)
[2021-08-16] MEDS: ASPIRIN EC 81 MG TABLET PO ×2 (09:19→20:49)
[2021-08-16] MEDS: ENOXAPARIN 40 MG/0.4 ML SYRINGE SUBCUT (09:19)
[2021-08-16] MEDS: polyethylene glycoL 3350 17 GM POWD.PACK PO (09:20)
[2021-08-16] MEDS: METOPROLOL ER 25 MG TABLET PO ×2 (09:20→20:49)
--- NOTE | 2021-08-16 11:16 | PT.IPTN ---
Current Diagnoses Weakness (07/31/21) Physical Therapy Treatment Note M2 PT-IP Current Condition Start: 08/01/21 11:58 Freq: NEEDED Status: Active Protocol: Document 08/01/21 10:40 AB (Rec: 08/01/21 12:15 AB [id number]) Physical Therapy Current Condition Current Condition Evaluation Date 08/01/21 Treatment Diagnosis UTI; H/O L TAN posterior (06/25); difficulty in walking Onset Date 07/31/21 M3 PT-IP Subjective Start: 08/01/21 11:58 Freq: NEEDED Status: Active Protocol: Document 08/16/21 11:03 HH (Rec: 08/16/21 11:16 HH [id number]) Subjective Physical Therapy Visit Type Type Treatment Note Visit Start Time 10:45 Visit Stop Time 11:00 Total Visit Minutes 15 Number of PROFESSOR OF INDUSTRIAL TECHNOLOGY Visits 0 Physical Therapy Visit Comments Patient Comments Pt agreeable to transfer to chair. Therapy Pain Assessment Pain When Pain Assessed During Mobility Pain Present Pain Present Pain Reported Location Left Knee Intensity 7 M4 PT-IP Mobility and Gait Start: 08/01/21 11:58 Freq: NEEDED Status: Active Protocol: Document 08/16/21 11:03 HH (Rec: 08/16/21 11:16 HH [id number]) PT-Bed Mobility Assessment Supine to Sit Supine to Sit Contact Guard Assistance,1 Person Assistance Scooting Scooting to Edge of Bed Standby Assistance PT-Transfer Assessment Sit to and From Stand Sit to and from Stand Contact Guard Assistance,1 Person Assistance,Use of Upper Extremities Equipment Transfer Assistive Device Gait Belt,Front Wheeled Walker Orthotic/Prosthetic Devices or Brace: No Transfers Transfer Destination Chair Transfer Technique small, shuffling steps Transfer Ability Level of Assist Contact Guard Assistance, Minimal Assistance,1 Person Assistance,Use of Upper Extremities Comments Mobility Comments pt was sitting at EOB upon PT arrival who just finished pericare with nursing. He was able to maintain sitting without UE support but needed min A to scoot to EOB. He then stood up without PT assistance CGA. He then took a few steps and decided to sit on chair d/t L knee pain. Pt is shuffling and showed limited lateral weight shift. He then stood up again with CGA FWW. He walked 4 feet with WC follow but c/o increased L knee pain. He requested to sit with poor eccentric control. CAll light placed within reach and chair alarm activated. Gait Assessment Gait Gait Assistance Required: Moderate Assistance,2 Person Assist Distance (Feet) 5 Able to Maintain Weight Bearing Status Yes During Gait Assistive Devices Assistive Device Gait Belt,Front Wheeled Walker Orthotic/Prosthetic Devices or Brace: No Factors Limiting Gait Function Factors Limiting Gait Function Decreased Activity Tolerance, Decreased Strength,Difficulty Following Directions, Incoordination,Limited Range of Motion,Poor Balance,Poor Safety Awareness Comments Gait Comments chair follow. PT-Balance Assessment Sitting Balance and Reactions Static Sitting Balance Ability Poor Dynamic Sitting Balance Ability Poor Standing Balance and Reactions Static Standing Balance Ability Poor Dynamic Standing Balance Ability Poor Device Used FWW M5 PT-IP Objective Assessments Start: 08/01/21 11:58 Freq: NEEDED Status: Active Protocol: Document 08/01/21 10:40 AB (Rec: 08/01/21 12:15 AB [id number]) Orientation Orientation/Cognition Level of Alertness Alert Orientation Name Safety Awareness Decreased Safety Awareness Memory Description Short Term Impaired,Assisted Impaired Strength Lower Extremity Strength Assessment Bilaterally Impaired Comments Strength Comments RLE: 4-/5 LLE: 3+/5 Muscle Tone Muscle Tone WNL Yes M6 PT-IP Treatment Start: 08/01/21 11:58 Freq: NEEDED Status: Active Protocol: Document 08/15/21 10:28 LJ (Rec: 08/15/21 11:00 LJ [id number]) Physical Therapy Treatment Exercises Exercises Ankle Pumps,Gluteal Sets,Quad Sets Other Treatments Other Treatment Performed Pt confused on how to perform quad and glute sets. M7 PT-IP Assessment and Plan Start: 08/01/21 11:58 Freq: NEEDED Status: Active Protocol: Document 08/16/21 11:03 HH (Rec: 08/16/21 11:16 HH [id number]) PT Summary Assessment and Plan Potential Rehabilitation Potential Fair Summary Impairments Pain,ROM,Strength,Balance, Coordination,Sensation,Tone, Cognition,Bed Mobility, Transfers,Gait,Activity Tolerance Progress Towards Goals Slow Progress due to Activity Tolerance,Slow Progress - Other Assessment Summary Pt shows good progress compared to last week. He was able to stand up with assistance today. But he c/o significant knee pain upon walking. Goals Bed Mobility Goal Moderate Assistance Transfer Goal Moderate Assistance,Front Wheeled Walker Gait Goal Moderate Assistance,Front Wheel Walker Gait Distance 50 Other Goals improve bed mobility and transfers to [facility] improve ambulation usng FWW 100 ft CGA Days to Meet Goals 10 Precautions Posterior Hip Precautions No Hip Flexion > 90 degrees,No Hip Internal Rotation,No Hip Adduction Other Precautions falls Recommendations To Nursing Amount of Assist Needed 1 Person Assist Discharge Recommendations PT Discharge Recommendations SNF Rehab Transportation Needs at Discharge Wheelchair/Cabulance
--- NOTE | 2021-08-16 11:41 | CM.DPC ---
Addendum entered by Hawa Mena R.N. 08/16/21 17:00: Franco called Bonnie Garcia back at [phone] to find out who she was assigning to do assessment for patient. Bonnie Jose stated she wasn't sure if she could assign patient to someone today. FRANCO asked to speak with Bonnie Garcia Hand Flesher. she stated she will have her neurology manager me and hung up. CM received a phone call from Corine Pennington # [phone] who is a home and community services catalytic case operator who will be doing the patients assessment tomorrow 08/17/2021 at 2pm. she was calling to request Clinicals be faxed to her at [phone] so she can review prior to phone assessment tomorrow. CM faxed 119 page clinical packet to catalytic case operator fax. FRANCO also spoke with Corine and explained patient difficulty walking, his cognition deficits and our challenge with finding placement for the patient without having a daily rate is impossible. She agreed and set up a time to do patients assessment for 2pm tomorrow with this CM. this CM also explained that the patient has been living in his care for a while and has been in the ED roughly 9 times this year with two hospitalizations. Corine stated that she will help locate a AFH for the patient but wants to know if the patient only wants to stay in [place] area for an AFH CM let her know that according to the patient is open to any location for buttermaker continuous churn placement. She stated understanding and CM will talk with Corine tomorrow afternoon. Hawa Mena spout positioner Original Note: DCP continued: Franco called Bonnie Jose to determine if she reassigned the patient to a new waste water worker to get bedside assessment sooner then later. Bonnie Garcia stated on patients application it shows that patient is looking for SNF bed only and they don't do SNF bed placements and that is why there has been no assessment. FRANCO stated we are working on a LTC plan and need an assessment for either SNF or adult family home. Bonnie stated that since that is the case and patient is open to AFH she will assign a new embedded case manager today and Cm can check back tomorrow to see who was assigned and work with them on a time to do assessment. CM will follow up later today with Bonnie Garcia to get the name of new embedded case manager who will do an assessment. CM called Daniela Mathur at [facility] to discuss homeless resources, shelters and other options for patient for potential discharge planning options for the patient. CM LVM and will follow up with Daniela later. CM called [facility] to speak with there CM team to determine what Homeless resources are in [place] area that might be useful to help with placement planning for this patient at [place]- no answer so patient left Voice message cm will follow up in a few hours to find possible resources for patient. CM called Judy at [facility] of [facility] back and she said they cannot accept patient due to no LTC plan in place. CM Called: Nati @ [place] to check on referral to see if they can accept, CM left [facility] in [place]- Spoke with Anita she stated they do not have [facility]ci SNF beds but do not have a max length of time they will accept a patient for SNF. CM Faxed clinicals to [phone] and will check back in with them in a day or so. [facility] admissions in [place] at [phone]- Li stated they are not taking any new admits at this time due to low staff- [facility] does not currently have beds available and are not review new patients at this time. CM called [facility] at [phone]- to discuss Shelters and possible resources for patient - LVM with [facility]. Called [facility] homeless m[facility] and left message for [facility] [phone] - [facility] transitional house servant- to discuss patients case to see if they have mcfp availability if patient gets strong enough to DC to a mcfp. Want to see if they are open to patient coming back at [place] if safe to do so. CM also met with patient at the bedside to discuss DC to mcfp options and he stated he rather go back to his car and does not like shelters. Pre past YOGA TEACHER note Patient spent one night at [facility] that did not go well, and has spent some time up in [place]. Pt has utilized [facility] in the past and has stayed at [facility] in [place] before. Pt had been on waiting list at [facility] (subsidized/HUD housing in [place]) which is approx a 5 year wait time but pt unsure if he is still on the waiting list at this time. Patient makes approx $1,200 in SS and would be agreeable to living in an AFH/[facility] if there was one available to him and he qualified for funding through [facility].
--- NOTE | 2021-08-16 14:28 | OT.IPNOTE ---
Pt asleep unable to arouse for Ot treatment at this time, to check on the pt tomorrow.
[2021-08-16 14:57] VITALS: BP 136/66; PULSE 76; RESP 16; O2SAT 97
[2021-08-16 20:49] VITALS: BP 134/88; PULSE 73
[2021-08-16 20:50] VITALS: BP 134/88; PULSE 73; RESP 22; TEMP 36.7; O2SAT 97
--- NOTE | 2021-08-16 21:19 | PM.PN.1 ---
Subjective Subjective Interval history: The patient denies any acute complaints. He states he's enjoying the food here. He denies any urinary/bowel complaints in particular. Exam Vital Signs (past 8 hours): - 08/17/21 20:33 Temperature 97.6 F Pulse Rate 81 Respiratory Rate 18 Blood Pressure 144/87 H Pulse Oximetry 96 Oxygen Delivery Method Room Air Oxygen Flow Rate 0 Narrative Exam Narrative: Const Other: The patient is laying in bed comfortably upon my entering the room, in no apparent acute distress. Eyes Other: No scleral icterus appreciated. Resp Other: Diminished breath sounds bilaterally, but without adventitious breath sounds. Cardio Other: Regular rate and rhythm. S1 and S2 heart sounds auscultated with no extra heart sounds or murmurs appreciated. No peripheral edema noted. GI Other: Soft, non-distended, non-tender. Bowel sounds present. Extrem Other: Palpable dorsalis pedis pulses bilaterally. Objective Labs Result Diagrams: 08/05/21 06:05 08/05/21 06:05 [facility] Medical History Cellulitis of left leg Congestive heart failure Elevated troponin Essential hypertension Hypertension Surgical History No pertinent past surgical history Family History Mother Hypertension Sister Hypertension Social History household members: none housing: other occupational status: unemployed Smoking Status: Current every day smoker alcohol intake: current additional social history: Lives in a hotel Assessment & Plan Assessment & Plan narrative: Assessment & Plan narrative: 1. Severe weakness, acute, possibly related to UTI, also status post left hip unipolar 06/25/2021 -Patient has been seen by social work and states he is agreeable to being housed in a rehab setting for the moment, though this may be quite difficult with his social situation -Physical therapy is assessing him daily. -MRI head to rule out old stroke was negative though there are chronic vascular changes. XR hip given continued mild pain was without fractures. 2. Urinary tract infection in the setting of chronic urinary retention, resolved This urinary tract infection is related to the patient's outpatient francis catheter which was changed shortly after admission. New Francis bag was attached however the Francis itself was not changed in the ED, so was changed 08/02 on the medical floor. Continue tamsulosin 0.4 mg q.d. He was restarted on ceftriaxone IV 1 g daily. UA grossly positive but culture negative. Continued antibiotics for 7 day course through 08/06/21 for complicated UTI. 3. Severe Acute on Chronic Protein Calorie Malnutrition appreciate dietary recommendations 4. Chronic diastolic heart failure Patient is currently not taking prescribed antihypertensives but does take aspirin 81 mg p.o. daily. Patient had an echocardiogram done approximately in April of 2020 and his EF was 55-60% 5.? Chronic atrial fibrillation Continue metoprolol ER 25 mg b.i.d. Adequately rate controlled on low-dose metoprolol provided here 6. Constipation -ordered daily MiraLax, oral and rectal Dulcolax as needed Time Spent With Patient Critical Care time: I spent a total of [] minutes of critical care time on this patient's care today; this time is exclusive of procedural time. Quality VTE Deep Vein Thrombosis/Pulmonary Embolism Present on Admission: No
[2021-08-16 21:20] VITALS: BP 137/87; PULSE 69
[2021-08-17 07:00] VITALS: BP 146/98; PULSE 60; RESP 16; TEMP 35.7; O2SAT 97
[2021-08-17 09:17] VITALS: BP 146/98; PULSE 60
[2021-08-17] MEDS: ENOXAPARIN 40 MG/0.4 ML SYRINGE SUBCUT (09:17)
[2021-08-17] MEDS: METOPROLOL ER 25 MG TABLET PO ×2 (09:17→20:10)
[2021-08-17] MEDS: ASPIRIN EC 81 MG TABLET PO ×2 (09:17→20:11)
[2021-08-17] MEDS: TAMSULOSIN 0.4 MG CAPSULE PO (09:18)
[2021-08-17] MEDS: polyethylene glycoL 3350 17 GM POWD.PACK PO (09:18)
[2021-08-17 09:32] VITALS: BP 139/92; PULSE 94
--- NOTE | 2021-08-17 10:25 | OT.IP.TRT ---
Current Diagnoses Weakness (07/31/21) Occupational Therapy Treatment Note M2 OT-IP Current Condition Start: 08/01/21 12:18 Freq: Status: Active Protocol: Document 08/01/21 11:35 [facility] (Rec: 08/01/21 12:36 [facility] [id number]) Occupational Therapy Current Condition Current Condition Evaluation Date 08/01/21 Treatment Diagnosis UTI, hx of Left TAN 06/25, decreased mobility Diagnosis Onset Date 07/31/21 Post Operative Precautions Posterior Hip Precautions No Hip Flexion > 90 degrees,No Hip Internal Rotation,No Hip Adduction M3 OT- IP Subjective and Pain Start: 08/01/21 12:18 Freq: Status: Active Protocol: Document 08/17/21 10:12 [facility] (Rec: 08/17/21 10:57 [facility] [id number]) OT- Subjective Occupational Therapy Visit Type Type Treatment Note Visit Start Time 10:12 Visit Stop Time 10:25 Total Visit Minutes 13 Occupational Therapy Visit Comments Patient Comments Pt wanting to use the bathroom . NUrsing aid present to assist. Patient/Caregiver Goals Pt states, I just don't know. OT Pain Assessment Pain When Pain Assessed At Rest Pain Present Pain Present Denied Pain M4 OT- IP ADL's Start: 08/01/21 12:18 Freq: Status: Active Protocol: Document 08/17/21 10:12 [facility] (Rec: 08/17/21 10:57 [facility] [id number]) OT DHL-Bedi-Yjhkhby General Evaluation Self-Feeding Ability Independent OT ADL-Grooming General Evaluation Grooming Ability Standby Assistance Areas Needing Assistance Retrieving/Set-up of Grooming Items OT ADL-Oral Care General Eval Oral Care Ability Standby Assistance Comments Oral Care Comments While seated in the recliner. OT ADL-Dressing Comments OT Dressing Comments NOt performed. OT ADL-Toileting Comments OT Toileting Comments Pt refused as did not want to use the BSC but not capable of walking to the bathroom yet due to weakness. OT ADL-Bathing Comments OT Bathing Comments not performed. Sponge bath more appropriate at this time. M6 OT- IP Functional Cognition Start: 08/01/21 12:18 Freq: Status: Active Protocol: Document 08/17/21 10:12 [facility] (Rec: 08/17/21 10:57 [facility] [id number]) Cognitive Factors Limiting Selfcare Function Cognitive Ability Level of Alertness Alert,Confusional State Patient Orientation Name Attention Span Ability Unable to Focus,Unable to Sustain Attention Ability to Follow Commands Able to Follow One Step Commands with Increased Time, Able to Follow One Step Commands with Repetition Safety Awareness Underestimates Need for Assistance Problem Solving Ability Unable to Identify Errors, Needs Assist to Identify Solutions Executive Function Ability Unable to Switch Focus,Unable to Filter Distractions,Unable to Remember Details Cognitive Comments Cognitive Assessment Comments Pt decreased attitude but able to be redirected. Pt highly distracted and needs lot of encouragement. M7 OT- IP Mobility and Balance Start: 08/01/21 12:18 Freq: Status: Active Protocol: Document 08/17/21 10:12 [facility] (Rec: 08/17/21 10:57 [facility] [id number]) OT- Bed Mobility Assessment Rolling Type of Rolling Roll to Right Supine to Sit Supine to Sit Assist Moderate Assistance,Head of Bed Elevated,Bedrails OT-Transfer Assessment Sit to and From Stand Sit to and from Stand Moderate Assistance,1 Person Assistance Transfers Transfer Ability Standby Assistance,Moderate Assistance,1 Person Assistance Technique Transfer Destination Bed,Chair Comments Mobility Comments Use of green pad to assist to help scoot his left hip forwards. MODA x1 to stand to FWW and able to take 5-6 steps before tiring and assist to the recliner and chair alarm placed on the pt. OT- Balance Assessment Sitting Balance and Reactions Static Sitting Balance Ability Good Dynamic Sitting Balance Ability Fair Standing Balance and Reactions Static Standing Balance Ability Poor M8 OT- IP Objective Assessments Start: 08/01/21 12:18 Freq: Status: Active Protocol: Document 08/01/21 11:35 [facility] (Rec: 08/01/21 12:36 [facility] [id number]) OT Gross Range of Motion Upper Extremity Range of Motion ROM Impairments grossly WFL OT Strength Comments Strength Comments BUE 4-/5 OT-Muscle Tone Assessment Muscle Tone WNL Yes M9 OT- IP Assessment and Plan Start: 08/01/21 12:18 Freq: Status: Active Protocol: Document 08/17/21 10:12 [facility] (Rec: 08/17/21 10:57 [facility] [id number]) OT Summary Assessment and Plan Potential Rehabilitation Potential Fair Analytic Complexity at Evaluation Moderate Summary OT Impairments Pain,Strength,Balance, Functional Cognition, Functional Mobility,Grooming, Dressing,Toileting,Bathing, Toilet Transfers,Shower Transfers,Activity Tolerance Progress Towards Goals Progressing Toward Goals,Slow Progress due to Activity Tolerance,Slow Progress due to Cognition Assessment Summary Pt able to take several steps with FWW today with MODA X 1 and another person for safety as at time pt a little unpredictable. Pt will benefit from skilled rehab. OT upgraded OT goals as pt doing better. Goals Grooming Goal Standby Assistance Dressing Goal Minimal Assistance Toileting Goal Minimal Assistance Bathing Goal Minimal Assistance Toilet Transfer Goal Standby Assistance Shower Transfer Goal Minimal Assistance Patient/Caregiver Education Goal Demonstrate Post-Op Precautions Days to Meet Goals 30 Frequency of Treatment Frequency Of Treatment Once a Day Treatment Plan OT Treatment Plan ADL Training,Functional Cognition Training,Functional Mobility,Patient/Family Education,Discharge Planning Other Treatment Recommendations and Next farm equipment engineer front of sink for Treatment Focus grooming needs with recliner behind him. Discharge Recommendations OT Discharge Recommendations SNF Rehab,LTAC Transportation Needs at Discharge Wheelchair/Cabulance
--- NOTE | 2021-08-17 13:15 | PC.NURSE ---
Patient sitting up in the chair and ate well at both meals. He denies pain. Awaiting placement for patient. He is a one to 2 person assist with walker. Refuses to be bathed.
--- NOTE | 2021-08-17 14:36 | CM.DPC ---
DCP continued: FRANCO received a call from COLETTE Aditi with the [facility] for the patients hospital assessment. FRANCO talked in length about the patient and his needs, about how he is doing with ambulation and his behaviors. Colette stated she would like to talk with him CM got patient a phone in his room and had LYLY montes transfer phone call to patients room. Colette attempted to speak with the patient but patient stated he could not hear the SW on the phone and started yelling I don't Know why I try and handed the phone back to . CM turned the phone up and handed the phone back to the patient and the patient still couldn't hear the SW and hung up the phone. Phone rang again in the patients room and patient tried answering the phone through his TV controller. CM gave the patient the correct phone and he still stated he couldn't hear the Case Manger and hung up the phone. FRANCO called Colette back at [phone] and we talked about the patient. She stated she will do the assessment off of notes and talking with me and stated since the patient can't hear her or answer her questions. She then stated she will do her assessment today and tomorrow and reach back out to on friday to discuss the patient. She also stated she will email her assessment and estimated rate for AFHs. Colette also stated [place] and she will give that information on friday. Hawa Talamantes RN Case manger.
--- NOTE | 2021-08-17 14:47 | PT-IP ANOTE ---
Attempted to see pt at 14:47, but pt refused therapy. Will try again tomorrow.
[2021-08-17 20:33] VITALS: BP 144/87; PULSE 81; RESP 18; TEMP 36.4; O2SAT 96
--- NOTE | 2021-08-17 21:21 | PM.PN.1 ---
Subjective Subjective Interval history: Patient denies at any pain at the left hip area. He reports working well with PT/OT. He denies any acute complaints. Exam Vital Signs (past 8 hours): - 08/17/21 20:33 Temperature 97.6 F Pulse Rate 81 Respiratory Rate 18 Blood Pressure 144/87 H Pulse Oximetry 96 Oxygen Delivery Method Room Air Oxygen Flow Rate 0 Narrative Exam Narrative: Const Other: The patient is laying in bed comfortably upon my entering the room, in no apparent acute distress. Eyes Other: No scleral icterus appreciated. Resp Other: Diminished breath sounds bilaterally, but without adventitious breath sounds. Cardio Other: Regular rate and rhythm. S1 and S2 heart sounds auscultated with no extra heart sounds or murmurs appreciated. No peripheral edema noted. GI Other: Soft, non-distended, non-tender. Bowel sounds present. Extrem Other: Palpable dorsalis pedis pulses bilaterally. Objective Labs Result Diagrams: 08/05/21 06:05 08/05/21 06:05 [facility] Medical History Cellulitis of left leg Congestive heart failure Elevated troponin Essential hypertension Hypertension Surgical History No pertinent past surgical history Family History Mother Hypertension Sister Hypertension Social History household members: none housing: other occupational status: unemployed Smoking Status: Current every day smoker alcohol intake: current additional social history: Lives in a hotel Assessment & Plan Assessment & Plan narrative: 1. Severe weakness, acute, possibly related to UTI, also status post left hip unipolar 06/25/2021 -Patient has been seen by social work and states he is agreeable to being housed in a rehab setting for the moment, though this may be quite difficult with his social situation -Physical therapy is assessing him daily. -MRI head to rule out old stroke was negative though there are chronic vascular changes. XR hip given continued mild pain was without fractures. 2. Urinary tract infection in the setting of chronic urinary retention, resolved This urinary tract infection is related to the patient's outpatient francis catheter which was changed shortly after admission. New Francis bag was attached however the Francis itself was not changed in the ED, so was changed 08/02 on the medical floor. Continue tamsulosin 0.4 mg q.d. He was restarted on ceftriaxone IV 1 g daily. UA grossly positive but culture negative. Continued antibiotics for 7 day course through 08/06/21 for complicated UTI. 3. Severe Acute on Chronic Protein Calorie Malnutrition appreciate dietary recommendations 4. Chronic diastolic heart failure Patient is currently not taking prescribed antihypertensives but does take aspirin 81 mg p.o. daily. Patient had an echocardiogram done approximately in April of 2020 and his EF was 55-60% 5.? Chronic atrial fibrillation Continue metoprolol ER 25 mg b.i.d. Adequately rate controlled on low-dose metoprolol provided here 6. Constipation -ordered daily MiraLax, oral and rectal Dulcolax as needed Time Spent With Patient Critical Care time: I spent a total of [] minutes of critical care time on this patient's care today; this time is exclusive of procedural time. Quality VTE Deep Vein Thrombosis/Pulmonary Embolism Present on Admission: No
[2021-08-17 22:17] VITALS: BP 155/87; PULSE 72
[2021-08-18 07:20] VITALS: BP 153/95; PULSE 61; RESP 18; TEMP 36.2; O2SAT 96
[2021-08-18 08:31] VITALS: BP 153/95
[2021-08-18] MEDS: METOPROLOL ER 25 MG TABLET PO ×2 (08:31→20:48)
[2021-08-18] MEDS: ENOXAPARIN 40 MG/0.4 ML SYRINGE SUBCUT (08:31)
[2021-08-18] MEDS: ASPIRIN EC 81 MG TABLET PO ×2 (08:31→20:48)
[2021-08-18] MEDS: TAMSULOSIN 0.4 MG CAPSULE PO (08:31)
--- NOTE | 2021-08-18 09:27 | OT.IPNOTE ---
Attempted to see pt for OT treatment to do grooming and get up, pt states, I just do not care. I do not want to,why should I.
[2021-08-18 10:34] VITALS: O2SAT 97
[2021-08-18 12:33] VITALS: BP 147/85
--- NOTE | 2021-08-18 13:28 | CM.DPC ---
DCP Cont: Called Home and Director Of Regulatory Affairs, Corine Parsons. Her phone number is listed as: [phone]. It is noted that an assessment was done yesterday, and that Corine had attempted to speak to patient on the phone, but patient kept hanging up, because he couldn't hear. [place]a, nurse pillowcase folder, had attempted to give phone to patient. In the note, it is stated that Corine would go ahead and attempt to complete the rest of the assessment over the phone. She may also call Friday, according to notes. This pillowcase folder left Corine a message today with phone number to call this information systems planner with any updates, and in case she calls this . It is noted that extensive calls have been made by discharge planners for facilities and shelters. Also, Home and Community Application had been done more than once for not only prison care skilled settings, but possible adult family homes. P: DCP to continue to follow. If patient continues to improve, and refuses to work with P.T, than he may need to discharge back to the community with the possibility of a motel voucher while tank terminal gauger placement continues. Julia Vo, RN/Production Line Worker
--- NOTE | 2021-08-18 14:26 | PM.PN.1 ---
Subjective Subjective Date Patient Seen: 08/18/21 Interval history: He is seen in his room here to follow-up his weakness, chronic atrial fibrillation and heart failure. There are no new issues today. He is awaiting placement. The last labs were normal on 08/05. Exam Vital Signs (past 8 hours): - 08/18/21 07:20 08/18/21 08:31 08/18/21 10:34 Temperature 97.1 F L Pulse Rate 61 Respiratory Rate 18 Blood Pressure 153/95 H 153/95 H Pulse Oximetry 96 97 08/18/21 12:33 Temperature Pulse Rate Respiratory Rate Blood Pressure 147/85 H Pulse Oximetry Oxygen Delivery Method Room Air Oxygen Flow Rate 0 Narrative Exam Narrative: He is alert and oriented x3. He does not appear to recognize me from previous interactions. Heart is regular rate and rhythm without murmur Lungs are clear to auscultation bilaterally Extremities have no ankle edema. Objective Labs Result Diagrams: 08/05/21 06:05 08/05/21 06:05 [facility] Medical History Cellulitis of left leg Congestive heart failure Elevated troponin Essential hypertension Hypertension Surgical History No pertinent past surgical history Family History Mother Hypertension Sister Hypertension Social History household members: none housing: other occupational status: unemployed Smoking Status: Current every day smoker alcohol intake: current additional social history: Lives in a hotel Assessment & Plan Assessment & Plan narrative: 1. Severe weakness, acute, possibly related to UTI, also status post left hip unipolar 06/25/2021 -Patient has been seen by social work and states he is agreeable to being housed in a rehab setting for the moment, though this may be quite difficult with his social situation -Physical therapy is assessing him daily. -MRI head to rule out old stroke was negative though there are chronic vascular changes. XR hip given continued mild pain was without fractures. 2. Urinary tract infection in the setting of chronic urinary retention, resolved This urinary tract infection is related to the patient's outpatient francis catheter which was changed shortly after admission. New Francis bag was attached however the Francis itself was not changed in the ED, so was changed 08/02 on the medical floor. Continue tamsulosin 0.4 mg q.d. He was restarted on ceftriaxone IV 1 g daily. UA grossly positive but culture negative. Continued antibiotics for 7 day course through 08/06/21 for complicated UTI. 3. Severe Acute on Chronic Protein Calorie Malnutrition appreciate dietary recommendations 4. Chronic diastolic heart failure Patient is currently not taking prescribed antihypertensives but does take aspirin 81 mg p.o. daily. Patient had an echocardiogram done approximately in April of 2020 and his EF was 55-60% 5.? Chronic atrial fibrillation Continue metoprolol ER 25 mg b.i.d. Adequately rate controlled on low-dose metoprolol provided here 6. Constipation -ordered daily MiraLax, oral and rectal Dulcolax as needed Time Spent With Patient Critical Care time: I spent a total of [] minutes of critical care time on this patient's care today; this time is exclusive of procedural time. Quality VTE Deep Vein Thrombosis/Pulmonary Embolism Present on Admission: No
--- NOTE | 2021-08-18 14:28 | PT-IP ANOTE ---
Attempted to see pt at 14:28, pt refused therapy stating he is just too tired.
--- NOTE | 2021-08-18 15:17 | PC.NURSE ---
Relatively uneventful shift. Denies any discomfort. Lungs slightly diminished, Spo2 94% RA Resting at intervals throughout day. Call light w/in reach, bed alarm on for pt safety. Continue w/plan of care.
[2021-08-18 19:59] VITALS: BP 136/80; PULSE 76; RESP 17; TEMP 36.7; O2SAT 96
[2021-08-18 20:48] VITALS: BP 130/80; PULSE 76
--- NOTE | 2021-08-19 05:40 | PC.NURSE ---
Pt urine is dark tea color with some clots on it. Pt was pulling on his francis cath earlier. Pt was seating on the side of the bed tonight, appeared confused at the time. Pt was given a snack tonight and went right back to sleep.
[2021-08-19] MEDS: ENOXAPARIN 40 MG/0.4 ML SYRINGE SUBCUT (08:48)
[2021-08-19] MEDS: ASPIRIN EC 81 MG TABLET PO ×2 (08:48→20:44)
[2021-08-19 08:49] VITALS: BP 147/97; PULSE 67
[2021-08-19] MEDS: METOPROLOL ER 25 MG TABLET PO ×2 (08:49→20:44)
[2021-08-19] MEDS: TAMSULOSIN 0.4 MG CAPSULE PO (08:52)
[2021-08-19 09:05] VITALS: BP 147/97; PULSE 67; RESP 18; TEMP 36.6; O2SAT 99
[2021-08-19 10:46] VITALS: BP 140/78
--- NOTE | 2021-08-19 11:45 | PT.IPTN ---
Current Diagnoses Weakness (07/31/21) Physical Therapy Treatment Note M2 PT-IP Current Condition Start: 08/01/21 11:58 Freq: NEEDED Status: Active Protocol: Document 08/01/21 10:40 AB (Rec: 08/01/21 12:15 AB [id number]) Physical Therapy Current Condition Current Condition Evaluation Date 08/01/21 Treatment Diagnosis UTI; H/O L TAN posterior (06/25); difficulty in walking Onset Date 07/31/21 M3 PT-IP Subjective Start: 08/01/21 11:58 Freq: NEEDED Status: Active Protocol: Document 08/19/21 11:48 MA (Rec: 08/19/21 12:07 MA [id number]) Subjective Physical Therapy Visit Type Type Treatment Note Visit Start Time 11:35 Visit Stop Time 11:45 Total Visit Minutes 10 Number of FOOD PROCESSING SCIENTIST Visits 1 Physical Therapy Visit Comments Patient Comments Pt states, I just want to return to bed, nothing else Therapy Pain Assessment Pain When Pain Assessed During Mobility Pain Present Pain Present Denied Pain M4 PT-IP Mobility and Gait Start: 08/01/21 11:58 Freq: NEEDED Status: Active Protocol: Document 08/19/21 11:48 MA (Rec: 08/19/21 12:07 MA [id number]) PT-Bed Mobility Assessment Sit to Supine Sit to Supine Standby Assistance,1 Person Assistance,Bedrails Scooting Scooting Up and Down in Bed Standby Assistance PT-Transfer Assessment Sit to and From Stand Sit to and from Stand Contact Guard Assistance, Minimal Assistance,1 Person Assistance,Use of Upper Extremities Equipment Transfer Assistive Device Gait Belt,Front Wheeled Walker Orthotic/Prosthetic Devices or Brace: No Transfers Transfer Destination Bed Transfer Technique small, shuffling steps Transfer Ability Level of Assist Contact Guard Assistance, Minimal Assistance,1 Person Assistance,Use of Upper Extremities Comments Mobility Comments Pt was seated in chair attempting to get up without nursing upon PT arrival. Pt is Min A sit>stand from chair. He takes small, shuffling steps to transfer to bed using gait belt and FWW, Min A for walker management when turning to sit on EOB. He is agreeable to 3x sit<>stand from EOB and 10x LAQ seated EOB before stating I'm done. Gait Assessment Gait Gait Assistance Required: Contact Guard Assist,Minimum Assistance,1 Person Assist Distance (Feet) 3 Able to Maintain Weight Bearing Status Yes During Gait Assistive Devices Assistive Device Gait Belt,Front Wheeled Walker Orthotic/Prosthetic Devices or Brace: No Gait Deviations General Gait Pattern Decreased Stride Length, Decreased Feet Clearance, Flexed Trunk Factors Limiting Gait Function Factors Limiting Gait Function Decreased Activity Tolerance, Decreased Strength, Incoordination,Limited Range of Motion,Poor Balance,Poor Safety Awareness Comments Gait Comments Pt is able to shuffle ~5 feet from chair to bed with gait belt and FWW. He refuses further gait this session and requires Min A for walker management when turning to sit on EOB PT-Balance Assessment Sitting Balance and Reactions Static Sitting Balance Ability Poor Dynamic Sitting Balance Ability Poor Standing Balance and Reactions Static Standing Balance Ability Poor Dynamic Standing Balance Ability Poor Device Used FWW M5 PT-IP Objective Assessments Start: 08/01/21 11:58 Freq: NEEDED Status: Active Protocol: Document 08/01/21 10:40 AB (Rec: 08/01/21 12:15 AB [id number]) Orientation Orientation/Cognition Level of Alertness Alert Orientation Name Safety Awareness Decreased Safety Awareness Memory Description Short Term Impaired,Jail Impaired Strength Lower Extremity Strength Assessment Bilaterally Impaired Comments Strength Comments RLE: 4-/5 LLE: 3+/5 Muscle Tone Muscle Tone WNL Yes M6 PT-IP Treatment Start: 08/01/21 11:58 Freq: NEEDED Status: Active Protocol: Document 08/19/21 11:48 MA (Rec: 08/19/21 12:07 MA [id number]) Physical Therapy Treatment Exercises Exercises Seated Knee Flexion/Extension Education Education Provided Safety Other Treatments Other Treatment Performed Pt agreeable only to 3 sit<> stands at EOB and 10x LAQ before stating, I'm done. educated pt on importance of participating in PT to avoid further decline with pt agreeable to walking more next session. M7 PT-IP Assessment and Plan Start: 08/01/21 11:58 Freq: NEEDED Status: Active Protocol: Document 08/19/21 11:48 MA (Rec: 08/19/21 12:07 MA [id number]) PT Summary Assessment and Plan Potential Rehabilitation Potential Fair Summary Impairments Pain,ROM,Strength,Balance, Coordination,Sensation,Tone, Cognition,Bed Mobility, Transfers,Gait,Activity Tolerance Progress Towards Goals Slow Progress due to Activity Tolerance,Slow Progress - Other Assessment Summary Pt states he has no pain this session. He is found attempting to get up from chair without nursing when PT arrives in room. Pt reminded of requiring assistance to transfer to bed and is unable to repeat any of his posterior hip precautions this session. He is Min A for initial sit> stand from room chair and progresses to CGA from EOB. Pt requires cues for eccentric control when sitting and is agreeable to practice 3x sit<> stands at EOB, CGA with gait belt and FWW. He requires Min A for walker management when transferring from chair to bed and is unable to clear feet from floor, shuffling 5 ft to bed for transfer. Pt performs 10x LAQ before stating he is done and is going to lay down . He is SBA for sit>supine in bed. Educated pt on importance of participating in therapy to improve strength and mobility with pt agreeing to walk more tomorrow but stating he is done today. Pt would benefit from SNF to improve strength, transfers, and mobility. Goals Bed Mobility Goal Moderate Assistance Transfer Goal Moderate Assistance,Front Wheeled Walker Gait Goal Moderate Assistance,Front Wheel Walker Gait Distance 50 Other Goals improve bed mobility and transfers to CGA improve ambulation usng FWW 100 ft CGA Days to Meet Goals 10 Frequency of Treatment Frequency Of Treatment Once a Day Treatment Plan Physical Therapy Treatment Plan Bed Mobility Training,Transfer Training,Gait Training, Therapeutic Exercise,Balance Retraining,Post Op Education, Discharge Planning,Hot or Cold Pack,Neuromuscular Re-ed, Coordination Retraining,Manual Therapy Other Recommendations and Next Treatment bed mob, LE ex, precautions, Focus transfers, increase gait as able with chair follow Precautions Posterior Hip Precautions No Hip Flexion > 90 degrees,No Hip Internal Rotation,No Hip Adduction Other Precautions falls Recommendations To Nursing Amount of Assist Needed 1 Person Assist Discharge Recommendations PT Discharge Recommendations SNF Rehab Transportation Needs at Discharge Wheelchair/Cabulance
--- NOTE | 2021-08-19 12:34 | CM.DPC ---
DCP Cont: Left another message with Corine Parsons [facility] refrigeration tech from [facility] regarding the completion of assessment and daily rate. This assessment is necessary for placement of patient so daily rate can be obtained. P: DCP to continue to work with [facility] on placement.
--- NOTE | 2021-08-19 16:18 | PC.NURSE ---
Pt alert, denies discomfort. Has had relatively uneventful day. Sat in chair for meals Arredondo cath patent dark tea colored urine. Call light w/in reach, bed alarm on for pt safety. Continue w/plan of care.
--- NOTE | 2021-08-19 18:49 | PM.PN.1 ---
Subjective Subjective Date Patient Seen: 08/19/21 Interval history: NO SPECIFIC COMPLAINTS DENIES ANY CHEST PAIN NO SHORTNESS OF BREATH NO FEVER OR CHILLS Exam Vital Signs (past 8 hours): Oxygen Delivery Method Room Air Oxygen Flow Rate 0 Narrative Exam Narrative: NO ACUTE DISTRESS. PATIENT IS ALERT ORIENTED X3. VITAL SIGNS STABLE HEAD ATRAUMATIC NORMOCEPHALIC NECK : SUPPLE WITHOUT ADENOPATHY NO CAROTID BRUITS EYE: EOMI, PERRLA, NORMAL CONJUNCTIVA; NO JAUNDICE CHEST: REGULAR RATE. NO RUBS. PMI IS NON DISPLACED. NO MURMURS; NORMAL S1-S2 PULMONARY: DECREASED BS OVER THE BASES. MILD BIBASILAR CRACKLES NOTED; NO INCREASED DULLNESS TO PERCUSSION ABDOMEN: SOFT. NONTENDER. NONDISTENDED. BOWEL SOUNDS ARE PRESENT IN ALL 4 QUADRANTS. NO MASS. EXTREMITIES: NO EDEMA.. NO CYANOSIS CLUBBING NOTED. NEURO: CRANIAL NERVES 2-12 GROSSLY INTACT. NO FOCAL NEUROLOGICAL DEFICIT NOTED. MSK: NORMAL RANGE OF MOTION FOR AGE. NO JOINT EFFUSION. SKIN: NORMAL FOR ETHNICITY; NO ECCHYMOSIS. NO LESION. GOOD TURGOR.; NO RASHES : NORMAL EXTERNAL GENITALIA. PSYCH : APPROPRIATE MOOD AND AFFECT. ALERT AWAKE ORIENTED X3 Objective Labs Result Diagrams: 08/05/21 06:05 08/05/21 06:05 [facility] Medical History Cellulitis of left leg Congestive heart failure Elevated troponin Essential hypertension Hypertension Surgical History No pertinent past surgical history Family History Mother Hypertension Sister Hypertension Social History household members: none housing: other occupational status: unemployed Smoking Status: Current every day smoker alcohol intake: current additional social history: Lives in a hotel Assessment & Plan Assessment & Plan narrative: PROBLEM LIST AND PLAN PHYSICAL DEBILITY/DECONDITIONING. MULTIFACTORIAL URINARY TRACT INFECTION. COMPLETED COURSE OF ANTIBIOTICS CHRONIC ATRIAL FIBRILLATION. VENTRICULAR RATE WELL CONTROLLED DEMENTIA. APPEARS TO BE AT BASELINE PLAN CONTINUE CURRENT MANAGEMENT FOR NOW NO INDICATION TO MAKE ANY CHANGES TO HER CURRENT PLAN AWAITING PLACED INTO SNF FACILITY CONTINUE TO WORK WITH PHYSICAL THERAPY PREVIOUSLY PLANNED FALL AND ASPIRATION TO BE MAINTAINED AT ALL TIME IC TO BE USED WHILE PATIENT IS AWAKE GET LABS INDICATED ONLY ADDITIONAL MANAGEMENT PER CLINICAL COURSE. WILL DISCHARGE ONCE A BED BECAME AVAILABLE ON AN SKILLED LIVING FACILITY Time Spent With Patient Critical Care time: I spent a total of [] minutes of critical care time on this patient's care today; this time is exclusive of procedural time. Quality VTE Deep Vein Thrombosis/Pulmonary Embolism Present on Admission: No
[2021-08-19 20:44] VITALS: BP 145/87; PULSE 88
[2021-08-19 21:05] VITALS: BP 145/87; PULSE 79; RESP 18; TEMP 36.6; O2SAT 96
--- NOTE | 2021-08-20 04:42 | PC.NURSE ---
Pt alert to sefl and situation. BA in place for safety. pt had a snack tonight twice. Waiting on placement, pt is currently homeless and doesn't have any family/support system.
[2021-08-20 07:44] VITALS: BP 139/96; PULSE 69; RESP 18; TEMP 36.4; O2SAT 95
[2021-08-20] MEDS: TAMSULOSIN 0.4 MG CAPSULE PO (08:24)
[2021-08-20] MEDS: ASPIRIN EC 81 MG TABLET PO ×2 (08:24→21:18)
[2021-08-20] MEDS: METOPROLOL ER 25 MG TABLET PO ×2 (08:24→21:18)
[2021-08-20] MEDS: ENOXAPARIN 40 MG/0.4 ML SYRINGE SUBCUT (08:24)
[2021-08-20] MEDS: polyethylene glycoL 3350 17 GM POWD.PACK PO (08:24)
--- NOTE | 2021-08-20 08:32 | PC.NURSE ---
Arredondo catheter removed at 0830.
--- NOTE | 2021-08-20 11:02 | PT.IPTN ---
Current Diagnoses Weakness (07/31/21) Physical Therapy Treatment Note M2 PT-IP Current Condition Start: 08/01/21 11:58 Freq: NEEDED Status: Active Protocol: Document 08/01/21 10:40 AB (Rec: 08/01/21 12:15 AB [id number]) Physical Therapy Current Condition Current Condition Evaluation Date 08/01/21 Treatment Diagnosis UTI; H/O L TAN posterior (06/25); difficulty in walking Onset Date 07/31/21 M3 PT-IP Subjective Start: 08/01/21 11:58 Freq: NEEDED Status: Active Protocol: Document 08/20/21 10:40 AW (Rec: 08/20/21 11:02 AW [id number]) Subjective Physical Therapy Visit Type Type Treatment Note Visit Start Time 10:24 Visit Stop Time 10:40 Total Visit Minutes 16 Notes SPT Lynette was present and participated in mobility assist for this patient. Number of COMPUTER GAME PROGRAMMER Visits 0 Physical Therapy Visit Comments Patient Comments Pt is willing to get up and work with PT Therapy Pain Assessment Pain When Pain Assessed During Mobility Pain Present Pain Present Pain Reported Location Left Knee Scale Used not quantified M4 PT-IP Mobility and Gait Start: 08/01/21 11:58 Freq: NEEDED Status: Active Protocol: Document 08/20/21 10:40 AW (Rec: 08/20/21 11:02 AW [id number]) PT-Transfer Assessment Sit to and From Stand Sit to and from Stand Minimal Assistance,1 Person Assistance,Use of Upper Extremities Equipment Transfer Assistive Device Gait Belt,Front Wheeled Walker Orthotic/Prosthetic Devices or Brace: No Comments Mobility Comments Pt was seated in chair as PT and SPT arrived. He agreed to ambulate. He was unable to verbalize any of his hip precautions and required constant cues to keep from bending forward during transitions. Pt stood min A x 1 and used FWW to steady himself. With chair follow. he took small shuffling steps forward ~3 feet before needing to sit down. He stood again min A x 1 and ambulated in similar fashion. On third attempt, pt only tolerated ~1 foot of ambulation, requesting to sit due to fatigue and L knee pain. Pt was positioned with call light and tray table in reach. Chair alarm was on for safety. Gait Assessment Gait Gait Assistance Required: Contact Guard Assist,Minimum Assistance,1 Person Assist Distance (Feet) 3 Able to Maintain Weight Bearing Status Yes During Gait Assistive Devices Assistive Device Gait Belt,Front Wheeled Walker Orthotic/Prosthetic Devices or Brace: No Gait Deviations General Gait Pattern Antalgic,Decreased Stride Length,Decreased Feet Clearance,Flexed Trunk,Wide Based Gait Factors Limiting Gait Function Factors Limiting Gait Function Decreased Activity Tolerance, Decreased Strength,Difficulty Following Directions,Limited Range of Motion,Pain,Poor Balance,Poor Safety Awareness Comments Gait Comments Pt takes shuffling steps during gait and requires cues to keep walker closer to trunk for max support and stability . PT-Balance Assessment Standing Balance and Reactions Static Standing Balance Ability Poor Dynamic Standing Balance Ability Poor Device Used FWW M5 PT-IP Objective Assessments Start: 08/01/21 11:58 Freq: NEEDED Status: Active Protocol: Document 08/01/21 10:40 AB (Rec: 08/01/21 12:15 AB [id number]) Orientation Orientation/Cognition Level of Alertness Alert Orientation Name Safety Awareness Decreased Safety Awareness Memory Description Short Term Impaired,Assisted Impaired Strength Lower Extremity Strength Assessment Bilaterally Impaired Comments Strength Comments RLE: 4-/5 LLE: 3+/5 Muscle Tone Muscle Tone WNL Yes M6 PT-IP Treatment Start: 08/01/21 11:58 Freq: NEEDED Status: Active Protocol: Document 08/20/21 10:40 AW (Rec: 08/20/21 11:02 AW [id number]) Physical Therapy Treatment Exercises Exercises Seated Knee Flexion/Extension Education Education Provided Safety M7 PT-IP Assessment and Plan Start: 08/01/21 11:58 Freq: NEEDED Status: Active Protocol: Document 08/20/21 10:40 AW (Rec: 08/20/21 11:02 AW [id number]) PT Summary Assessment and Plan Potential Rehabilitation Potential Fair Summary Impairments Pain,ROM,Strength,Balance, Coordination,Sensation,Tone, Cognition,Bed Mobility, Transfers,Gait,Activity Tolerance Progress Towards Goals Slow Progress due to Pain,Slow Progress due to Activity Tolerance,Slow Progress - Other Assessment Summary Pt was willing to participate today but remains limited by poor activity tolerance and difficulty following directions. Pt has poor eccentric control of descent and needs assist for all mobility. Pt would benefit from SNF to improve strength, transfers, and mobility. Goals Bed Mobility Goal Moderate Assistance Transfer Goal Moderate Assistance,Front Wheeled Walker Gait Goal Moderate Assistance,Front Wheel Walker Gait Distance 50 Other Goals improve bed mobility and transfers to CGA improve ambulation usng FWW 100 ft CGA Days to Meet Goals 10 Frequency of Treatment Frequency Of Treatment Once a Day Treatment Plan Physical Therapy Treatment Plan Bed Mobility Training,Transfer Training,Gait Training, Therapeutic Exercise,Balance Retraining,Post Op Education, Discharge Planning,Hot or Cold Pack,Neuromuscular Re-ed, Coordination Retraining,Manual Therapy Other Recommendations and Next Treatment bed mob, LE ex, precautions, Focus transfers, increase gait as able with chair follow Precautions Posterior Hip Precautions No Hip Flexion > 90 degrees,No Hip Internal Rotation,No Hip Adduction Other Precautions falls Recommendations To Nursing Amount of Assist Needed 2 Person Assist Discharge Recommendations PT Discharge Recommendations SNF Rehab Transportation Needs at Discharge Wheelchair/Cabulance
--- NOTE | 2021-08-20 12:29 | CM.DPC ---
DCP LTC Planning: SW called pt's assigned HCS acetylene operator Corine Reedmegan [phone] and confirmed that she worked on pt's HCS assessment over the weekend and had difficulty speaking with pt via phone in his hospital room but that she was able to get enough info to complete most of the assessment and SW provided the additional info regarding height/weight/no dentures/pain etc.. Corine states that she will email the assessment when finalized and requests SW to assist in getting pt's signatures on the Pt Rights form, consent, and acknowledgement of services for HCS and then fax back. SW printed forms and took bedside to pt and explained forms and he signed. SW discussed bedside with pt the purpose of the HCS assessment and superintendent container terminal placement attempts at likely [facility] after SNF rehab (unless pt continues to progress while securing LTC placement and can d/c directly to [facility] etc) and pt confirms he is agreeable to SNF if needed and LTC placement at [facility] and preference would be closer to his friend/primary support Carlito who lives in [place] but aware that it will mostly be determined on which facility has an opening and which can accept. Pt is agreeable. [facility] Corine states if pt is placed in [facility] his daily rate would be $120.57 and if in another [facility] like [place]/[facility]/etc then daily rate is based on if considered [place] area or not but would be $116 if metropolitan and $112 if non-metropolitan. Plan: SW will begin attempting to find [facility] or possibly Assisted Living facility that has an opening and willing to review and then determine if SNF needed under pt's Medicare for Rehab prior to placement at superintendent container terminal care unless pt progresses enough and can just d/c straight into LTC facility. JACK Wiley
--- NOTE | 2021-08-20 16:24 | OT.IPNOTE ---
Attempted to see pt for OT services. Pt declined all activity at this time. No OT services rendered.
--- NOTE | 2021-08-20 18:55 | PM.PN.1 ---
Subjective Subjective Date Patient Seen: 08/20/21 Interval history: REVIEW OF SYSTEM IS UNRELIABLE DUE TO PATIENT UNDERLYING MENTATION Exam Vital Signs (past 8 hours): Oxygen Delivery Method Room Air Oxygen Flow Rate 0 Narrative Exam Narrative: NO ACUTE DISTRESS. PATIENT IS ALERT NOT ORIENTED TO TIME AND PLACE VITAL SIGNS STABLE HEAD ATRAUMATIC NORMOCEPHALIC NECK : NO ADENOPATHY ; NO CAROTID BRUITS EYE: EOMI, PERRLA, NORMAL CONJUNCTIVA; NO JAUNDICE CHEST: REGULAR RATE. NO RUBS. PMI IS NON DISPLACED. PULMONARY: DECREASED BS OVER THE BASES. MILD BIBASILAR CRACKLES NOTED; NO INCREASED DULLNESS TO PERCUSSION ABDOMEN: SOFT. NONTENDER. NONDISTENDED. BOWEL SOUNDS ARE PRESENT IN ALL 4 QUADRANTS. NO MASS. EXTREMITIES: NO CYANOSIS OR CLUBBING NOTED. NEURO: CRANIAL NERVES 2-12 GROSSLY INTACT. NO FOCAL NEUROLOGICAL DEFICIT NOTED. BASELINE DEMENTIA MSK: NORMAL RANGE OF MOTION FOR AGE. NO JOINT EFFUSION. PSYCH : CALM AND COOPERATIVE Objective Labs Result Diagrams: 08/05/21 06:05 08/05/21 06:05 [facility] Medical History Cellulitis of left leg Congestive heart failure Elevated troponin Essential hypertension Hypertension Surgical History No pertinent past surgical history Family History Mother Hypertension Sister Hypertension Social History household members: none housing: other occupational status: unemployed Smoking Status: Current every day smoker alcohol intake: current additional social history: Lives in a hotel Assessment & Plan Assessment & Plan narrative: ?PROBLEM LIST ?PHYSICAL DEBILITY/DECONDITIONING.? MULTIFACTORIAL ?URINARY TRACT INFECTION.? COMPLETED COURSE OF ANTIBIOTICS ?CHRONIC ATRIAL FIBRILLATION.? VENTRICULAR RATE WELL CONTROLLED ?DEMENTIA.? APPEARS TO BE AT BASELINE PLAN ?CONTINUE CURRENT MANAGEMENT FOR NOW ?NO INDICATION TO MAKE ANY CHANGES TO HER CURRENT PLAN ?AWAITING PLACED INTO INTERMEDIATE FACILITY ?CONTINUE TO WORK WITH PHYSICAL THERAPY ? PREVIOUSLY PLANNED ?FALL AND ASPIRATION? TO BE MAINTAINED? AT ALL TIME ?IC? TO BE USED WHILE PATIENT IS AWAKE ?GET LABS INDICATED ONLY ADDITIONAL MANAGEMENT INDICATED CLINICALLY Time Spent With Patient Critical Care time: I spent a total of [] minutes of critical care time on this patient's care today; this time is exclusive of procedural time. Quality VTE Deep Vein Thrombosis/Pulmonary Embolism Present on Admission: No
[2021-08-20 20:00] VITALS: BP 158/95; PULSE 73; RESP 18; TEMP 37; O2SAT 97
[2021-08-20 21:18] VITALS: BP 158/95; PULSE 85
[2021-08-20 22:00] VITALS: BP 163/98; PULSE 75
[2021-08-21] MEDS: ACETAMINOPHEN 325 MG TABLET 650 MG PO (02:19)
--- NOTE | 2021-08-21 03:49 | PC.NURSE ---
Addendum entered by Bertha Mortensen R.N. 08/21/21 05:51: Order for bladder scan entered late- worklist was updated and previous scans were charted. Addendum entered by Bertha Mortensen R.N. 08/21/21 05:38: Bladder scan was done at 0500 and patient had 529 mL in the bladder, this RN straight cath'd the patient at 0510 nad 350 mL of urine came out. Patient tolerated well but there was slight resistance with insertion. Patient stated that he still felt like his bladder has urine after the straight cath and a scan was down which showed around 190 mL of urine. Will continue to monitor output. Addendum entered by Bertha Mortensen R.N. 08/21/21 05:00: Provider ARAMIS Rajput, notified and telephone orders were given to edit previous order for in and out cath to PRN with bladder scan over 450. Original Note: Late entry: Patient had Arredondo removed at 0832 and did not have any documented voids since. At 1999 patient continued to get out of bed stating he needed to go to the bathroom, after multiple attempts with just small unmeasurable amounts, a bladder scan was done. First scan revealed 492 and second scan revealed 532. Provider ARAMIS Rajput was notified and an order for a straight cath was given. Patient was cath'd at 2345 and 500cc was emptied. Patient has continued to try to use the bathroom with multiple unmeasurable voids. Latest void was at 0330 with small amounts in the urinal, small amounts dripped on the floor and small amounts in the toilet
[2021-08-21 07:00] VITALS: BP 143/68; PULSE 91; RESP 18; TEMP 36.8; O2SAT 97
--- NOTE | 2021-08-21 09:24 | PT.IPTN ---
Current Diagnoses Weakness (07/31/21) Physical Therapy Treatment Note M2 PT-IP Current Condition Start: 08/01/21 11:58 Freq: NEEDED Status: Active Protocol: Document 08/01/21 10:40 AB (Rec: 08/01/21 12:15 AB [id number]) Physical Therapy Current Condition Current Condition Evaluation Date 08/01/21 Treatment Diagnosis UTI; H/O L TAN posterior (06/25); difficulty in walking Onset Date 07/31/21 M3 PT-IP Subjective Start: 08/01/21 11:58 Freq: NEEDED Status: Active Protocol: Document 08/21/21 09:07 (Rec: 08/21/21 09:24 HH [id number]) Subjective Physical Therapy Visit Type Type Discharge Summary Visit Start Time 08:35 Visit Stop Time 08:50 Total Visit Minutes 15 Number of MATERIAL LIAISON Visits 0 Physical Therapy Visit Comments Patient Comments Pt is willing to get up and work with PT Therapy Pain Assessment Pain When Pain Assessed During Mobility Pain Present Pain Present Pain Reported M4 PT-IP Mobility and Gait Start: 08/01/21 11:58 Freq: NEEDED Status: Active Protocol: Document 08/21/21 09:07 (Rec: 08/21/21 09:24 HH [id number]) PT-Transfer Assessment Sit to and From Stand Sit to and from Stand Contact Guard Assistance, Minimal Assistance,1 Person Assistance,Use of Upper Extremities Equipment Transfer Assistive Device Gait Belt,Front Wheeled Walker Orthotic/Prosthetic Devices or Brace: No Transfers Transfer Destination Chair Transfer Technique small, shuffling steps Transfer Ability Level of Assist Contact Guard Assistance, Minimal Assistance,1 Person Assistance,Use of Upper Extremities Comments Mobility Comments pt was sitting at EOB upon PT arrival. He does not recall any post op precautions. Agreeable to mobilize with PT. He stood up from EOB by pushing off from bed with CGA then side step pivot transfer to chair with poor eccentric control. He then requested to void in garbage can since it's right next to him. I encouraged him to use BSC instead. He then stood up with use of FWW (BSC was placed in front of him) and he was able to stand with 1 UE support on BSC armrest and voided. However, pt voided on the floor and unable to clean up afterwards. He sat back down to chair. Call light placed within reach. Gait Assessment Gait Gait Assistance Required: Contact Guard Assist,Minimum Assistance,1 Person Assist Distance (Feet) 3 Able to Maintain Weight Bearing Status Yes During Gait Assistive Devices Assistive Device Gait Belt,Front Wheeled Walker Orthotic/Prosthetic Devices or Brace: No Gait Deviations General Gait Pattern Antalgic,Decreased Stride Length,Decreased Feet Clearance,Flexed Trunk,Wide Based Gait Factors Limiting Gait Function Factors Limiting Gait Function Decreased Activity Tolerance, Decreased Strength,Difficulty Following Directions,Limited Range of Motion,Pain,Poor Balance,Poor Safety Awareness Comments Gait Comments Pt takes shuffling steps during gait and requires cues to keep walker closer to trunk for max support and stability . 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 Impaired Strength Lower Extremity Strength Assessment Bilaterally Impaired Comments Strength Comments RLE: 4-/5 LLE: 3+/5 Muscle Tone Muscle Tone WNL Yes M6 PT-IP Treatment Start: 08/01/21 11:58 Freq: NEEDED Status: Active Protocol: Document 08/20/21 10:40 AW (Rec: 08/20/21 11:02 AW [id number]) Physical Therapy Treatment Exercises Exercises Seated Knee Flexion/Extension Education Education Provided Safety M7 PT-IP Assessment and Plan Start: 08/01/21 11:58 Freq: NEEDED Status: Active Protocol: Document 08/21/21 09:07 HH (Rec: 08/21/21 09:24 HH [id number]) PT Summary Assessment and Plan Potential Rehabilitation Potential Fair Summary Impairments Pain,ROM,Strength,Balance, Coordination,Sensation,Tone, Cognition,Bed Mobility, Transfers,Gait,Activity Tolerance Progress Towards Goals Slow Progress due to Pain,Slow Progress due to Activity Tolerance,Slow Progress - Other Assessment Summary Pt was willing to participate today but remains very limited mobility and cognition. Over the past two weeks, pt is not making any meaningful progress with no carry over in terms of post op precautions, transfer techniques. He also has very poor self care who will need extensive assistance for all ADLs. DC pt from PT today and recommended nursing for his maintainence service for basic care. Notified SW with this decision. Frequency of Treatment Frequency Of Treatment Discharge Precautions Other Precautions falls Recommendations To Nursing Amount of Assist Needed 2 Person Assist Discharge Recommendations PT Discharge Recommendations SNF Rehab Transportation Needs at Discharge Wheelchair/Cabulance
[2021-08-21 09:42] VITALS: BP 123/83; PULSE 88
[2021-08-21] MEDS: ENOXAPARIN 40 MG/0.4 ML SYRINGE SUBCUT (09:42)
[2021-08-21] MEDS: TAMSULOSIN 0.4 MG CAPSULE PO (09:42)
[2021-08-21] MEDS: METOPROLOL ER 25 MG TABLET PO ×2 (09:42→20:41)
[2021-08-21] MEDS: ASPIRIN EC 81 MG TABLET PO ×2 (09:42→20:42)
[2021-08-21] MEDS: polyethylene glycoL 3350 17 GM POWD.PACK PO (09:43)
--- NOTE | 2021-08-21 13:46 | OT.IPNOTE ---
Attempted to see pt for OT treatment and pt indifferent for doing any ADl needs at this time. Pt is content and feels that he is able to care for himself. However when asked to get up, pt refusing. Pt has refused multiple times and would benefit more from going to an adult family home at this time. Therefore discharge pt from OT services.
--- NOTE | 2021-08-21 13:48 | CM.DPC ---
Addendum entered by Hawa Mena R.N. 08/21/21 16:52: FRANCO Spoke with Brain at [facility]- [phone]- he stated he has a bed that Mr. Reyes could be a good fit for but wants to do a video visit with Mr. Reyes tomorrow at 12:30pm. CM let him know that Aric Tinoco patients pending DPOA will be her at bedside at that time. he stated he will call the desk [phone] to get in contact with the patient and . department will follow very closely with Rogers hay, Aric Tinoco and the patient to see if DC plan can happen. Hawa Mena RNradiation technician Original Note: DCP continued: CM spoke with patients Friend Aric Tinoco who previously stated he would be willing to be patients DPOA- CM asked patient is he is open to Aric being his DPOA he stated he was okay with that. CM set up a time tomorrow 08/22/21 with Aric Tinoco and the patient to do DPOA paper work. FRANCO sent Medical records an email requesting a notary so DPOA paperwork can be completed tomorrow and available for [facility] search. Polst given to MD to be completed with patient as well. JACK Ruffin called a few [facility] and found three beds and LYLY montes sent clinicals for there review. Hawa Mena RN Case Manger
--- NOTE | 2021-08-21 13:54 | P.PN_ITS ---
Subjective Subjective Date Patient Seen: 08/21/21 Interval history: THE PATIENT IS SITTING ON A CHAIR TODAY DURING MY VISIT STATED THAT HE IS DOING FINE. DID NOT NEED ANYTHING HE DID NOT HAVE ANY COMPLAINTS Exam Vital Signs (past 8 hours): - 08/21/21 07:00 08/21/21 09:42 Temperature 98.2 F Pulse Rate 91 H 88 Respiratory Rate 18 Blood Pressure 143/68 H 123/83 Pulse Oximetry 97 Oxygen Delivery Method Room Air Oxygen Flow Rate 0 Narrative Exam Narrative: NO ACUTE DISTRESS.? PATIENT IS ALERT? AND AWAKE. ORIENTED TO PERSON AND PLAC E. NOT ORIENTED TO TIME. APPEARS OLDER THAN STATED AGE. VITAL SIGNS STABLE HEAD ATRAUMATIC NORMOCEPHALIC NECK : NO ADENOPATHY ; NO CAROTID BRUITS EYE:? EOMI, PERRLA, NORMAL CONJUNCTIVA; NO JAUNDICE CHEST:? REGULAR RATE.? ? NO RUBS.? PMI IS NON DISPLACED.? PULMONARY:? DECREASED BS OVER THE BASES.? MILD BIBASILAR CRACKLES NOTED; NO INCREASED DULLNESS TO PERCUSSION ABDOMEN:? SOFT.? NONTENDER.? NONDISTENDED.? BOWEL SOUNDS ARE PRESENT IN ALL 4 QUADRANTS.? NO MASS. EXTREMITIES: ? NO CYANOSIS OR CLUBBING NOTED. NEURO:? CRANIAL NERVES 2-12 GROSSLY INTACT. NO FOCAL NEUROLOGICAL DEFICIT NOTED. BASELINE DEMENTIA MSK:? NORMAL RANGE OF MOTION FOR AGE.? NO JOINT EFFUSION. PSYCH : ? CALM AND COOPERATIVE Objective Labs Result Diagrams: 08/05/21 06:05 08/05/21 06:05 [facility] Medical History Cellulitis of left leg Congestive heart failure Elevated troponin Essential hypertension Hypertension Surgical History No pertinent past surgical history Family History Mother Hypertension Sister Hypertension Social History household members: none housing: other occupational status: unemployed Smoking Status: Current every day smoker alcohol intake: current additional social history: Lives in a hotel Assessment & Plan Assessment & Plan narrative: PROBLEM LIST ?PHYSICAL DEBILITY/DECONDITIONING.? MULTIFACTORIAL ?URINARY TRACT INFECTION.? COMPLETED COURSE OF ANTIBIOTICS ?CHRONIC ATRIAL FIBRILLATION.? VENTRICULAR RATE WELL CONTROLLED ?DEMENTIA. WITHOUT AGGRESSIVE BEHAVIOR .? APPEARS TO BE AT BASELINE PLAN 08/21 PATIENT REMAINED IN STABLE FOR DISCHARGE ONCE A BED BECOMES AVAILABLE OR THE LOCAL NURSING FACILITY LONG DISCUSSION IN REGARD TO THE PATIENT TODAY WITH CASE MANAGEMENT PLAN TO DISCHARGE TO GROUP HOME ONCE ABLE TO SECURE A BED CONTINUE CURRENT MANAGEMENT OTHERWISE RECHECK HER LABS IN THE NEXT 48 HOURS THE PATIENT REMAINED IN THE HOSPITAL CONTINUE TO MAINTAIN STRICT FALL PRECAUTIONS ADDITIONAL MANAGEMENT INDICATED CLINICALLY 08/20 ?CONTINUE CURRENT MANAGEMENT FOR NOW ?NO INDICATION TO MAKE ANY CHANGES TO HER CURRENT PLAN ?AWAITING PLACED INTO LONG TERM FACILITY ?CONTINUE TO WORK WITH PHYSICAL THERAPY ? PREVIOUSLY PLANNED ?FALL AND ASPIRATION? TO BE MAINTAINED? AT ALL TIME ?IC? TO BE USED WHILE PATIENT IS AWAKE ?GET LABS INDICATED ONLY ?ADDITIONAL MANAGEMENT INDICATED? CLINICALLY Time Spent With Patient Critical Care time: I spent a total of [] minutes of critical care time on this patient's care today; this time is exclusive of procedural time. Quality VTE Deep Vein Thrombosis/Pulmonary Embolism Present on Admission: No
--- NOTE | 2021-08-21 14:40 | CM.DPNOTE ---
Emailed clinicals for state assessment/cost to [email or web address]; and Shameka Castillo at [email or web address]. Katherine Terry CM Asst.
[2021-08-21 19:00] VITALS: BP 140/83; PULSE 79; RESP 16; TEMP 37.1; O2SAT 96
[2021-08-21 20:41] VITALS: BP 140/83; PULSE 79
[2021-08-21 22:00] VITALS: BP 146/82; PULSE 95
[2021-08-22] MEDS: ACETAMINOPHEN 325 MG TABLET 650 MG PO ×2 (00:31→22:31)
--- NOTE | 2021-08-22 05:59 | PC.NURSE ---
Patient has been impulsive with getting out of bed for multiple attempts to urinate throughout the shift, with all having dribbling after going and while attempting to go. Patient has had multiple wet briefs that were changed when patient was up to the bathroom. Bladder scan was done and the most shown was 394. Will continue to monitor and let oncoming staff know.
[2021-08-22 08:00] VITALS: BP 163/94; PULSE 98; RESP 19; TEMP 37.1; O2SAT 97
[2021-08-22 08:59] VITALS: BP 163/99; PULSE 98
[2021-08-22] MEDS: METOPROLOL ER 25 MG TABLET PO ×2 (08:59→22:32)
[2021-08-22] MEDS: TAMSULOSIN 0.4 MG CAPSULE PO (09:00)
[2021-08-22] MEDS: ASPIRIN EC 81 MG TABLET PO ×2 (09:00→22:32)
[2021-08-22] MEDS: polyethylene glycoL 3350 17 GM POWD.PACK PO (09:00)
[2021-08-22] MEDS: ENOXAPARIN 40 MG/0.4 ML SYRINGE SUBCUT (09:00)
--- NOTE | 2021-08-22 11:56 | CM.DPNOTE ---
Addendum entered by Julia Vo R.N. 08/22/21 15:56: Brain at [facility] confirmed that they can accept patient, but not until Sep 08. Asked him to secure the bed. Gave him Corine Pennington's number with [facility], and this sample case porter also left a message with Corine. Let her know that address of [facility] is: [address] [place] [address], [place] [address]. Let her know that case management will still attempt to see if another facility can admit sooner. Addendum entered by Julia Vo R.N. 08/22/21 15:26: Brain from [facility] was able to make the zoom connection with patient and friend, Aric Tinoco. He described the facility, being 5 bedrooms, is in [place]. After call was completed, Aric indicated that they should be able to take him, but probably not until Sep 08. This sample case porter called [facility] and left a message for Brain to call back to confirm that they will accept. Will not update Corine at [facility] until it is confirmed. Will also continue to look for other places. Received a call back from a facility that Katherine attempted to reach. Alysha from [facility] called back. Asked questions about this patient, and gave her an update. She is also located in [place]. Her phone number is: [phone]. Her email is: [email or web address]. Asking Katherine to email her clinical information. She stated that she will review, and attempt to set up a zoom conference. This may need to be done with friend, Aric Tinoco, as well. Will continue to await hearing back from Brain at [facility]. His number is: [phone]. Alysha at [facility] is also reviewing. Aric Tinoco assisted patient in filling out DPOA form. Called Medical Records to see if form can get notorized before patient signing, but one is not available until Friday. Will hold form until then. Julia Vo RN/Foam Gun Operator Addendum entered by Julia Vo R.N. 08/22/21 13:20: Went ahead and called some alternate adult family homes. Frank Years at [facility], spoke to [facility]. They are located in [place], her phone number is: [phone]. She is requesting information be emailed: [email or web address]. Hawa Charlton in [place]. Left message. Their number is: [phone] Cici Mcneal in [place]. Spoke to Benny. Her phone number is: [phone]. She is asking that we email information. Her email is: [email or web address]. Will ask household personal assistant, Katherine, if she can email these homes. Currently awaiting patient's friend, Aric, to show up. Julia Vo RN/Foam Gun Operator Original Note: DCP Cont: Plan is for Brain from [facility] to call patient's friend, Aric Tinoco, for an interview for patient. Have not yet seen Aric. Called him, he stated, he's just leaving [place], and not sure if he can be here that soon. He was also not aware that he had a conference at 1230. Pushed back the time to 1330, and let Aric know that Brain will want to do a video conference on his phone for patient assessment. Called Brain back at [facility], and he will call at 1330. He has Aric's phone number as well. This logistics planner will plan on meeting with patient and friend at approximately 1330, to ensure that this conference happens. P: DCP to see about ensuring that interview is set up today at 1330 between patient's friend, and Brain at [facility]. May also call more facilities to see if there are openings as well. Julia Vo RN/Foam Gun Operator
--- NOTE | 2021-08-22 12:29 | PM.PN.1 ---
Subjective Subjective Date Patient Seen: 08/22/21 Interval history: PATIENT ELECTED TO BE A FULL CODE AFTER ALL DISCUSSION THIS MORNING HE IS FEELING WELL AND HAD NO COMPLAINTS. Exam Vital Signs (past 8 hours): - 08/22/21 08:00 08/22/21 08:59 Temperature 98.8 F Pulse Rate 98 H 98 H Respiratory Rate 19 Blood Pressure 163/94 H 163/99 H Pulse Oximetry 97 Oxygen Delivery Method Room Air Oxygen Flow Rate 0 Narrative Exam Narrative: NO ACUTE DISTRESS.? PATIENT IS ALERT?? AND AWAKE.? ORIENTED TO? TIME, PERSON AND PLACE. APPEARS OLDER THAN STATED AGE. VITAL SIGNS STABLE HEAD ATRAUMATIC NORMOCEPHALIC NECK : NO ADENOPATHY ; NO CAROTID BRUITS EYE:? EOMI, PERRLA, NORMAL CONJUNCTIVA; NO JAUNDICE CHEST:? REGULAR RATE.? ? NO RUBS.? PMI IS NON DISPLACED.? PULMONARY:? DECREASED BS OVER THE BASES.? MILD BIBASILAR CRACKLES NOTED; NO INCREASED DULLNESS TO PERCUSSION ABDOMEN:? SOFT.? NONTENDER.? NONDISTENDED.? BOWEL SOUNDS ARE PRESENT IN ALL 4 QUADRANTS.? NO MASS. EXTREMITIES: ? NO CYANOSIS OR CLUBBING NOTED. NEURO:? CRANIAL NERVES 2-12 GROSSLY INTACT. NO FOCAL NEUROLOGICAL DEFICIT NOTED. BASELINE DEMENTIA MSK:? NORMAL RANGE OF MOTION FOR AGE.? NO JOINT EFFUSION. PSYCH : ? CALM AND COOPERATIVE. NO PSYCHOSIS Objective Labs Result Diagrams: 08/05/21 06:05 08/05/21 06:05 [facility] Medical History Cellulitis of left leg Congestive heart failure Elevated troponin Essential hypertension Hypertension Surgical History No pertinent past surgical history Family History Mother Hypertension Sister Hypertension Social History household members: none housing: other occupational status: unemployed Smoking Status: Current every day smoker alcohol intake: current additional social history: Lives in a hotel Assessment & Plan Assessment & Plan narrative: PROBLEM LIST ?PHYSICAL DEBILITY/DECONDITIONING.? MULTIFACTORIAL ?URINARY TRACT INFECTION.? COMPLETED COURSE OF ANTIBIOTICS ?CHRONIC ATRIAL FIBRILLATION.? VENTRICULAR RATE WELL CONTROLLED ?DEMENTIA.? WITHOUT ? AGGRESSIVE BEHAVIOR? .? APPEARS TO BE AT BASELINE PLAN 08/22 SPOKE TO PATIENT AT [facility] TODAY IN REGARD TO CODE STATUS HE WOULD LIKE TO BE A FULL CODE OTHERWISE WILL CONTINUE CURRENT MANAGEMENT PATIENT IS AWAITING PLACEMENT TO [facility] OR [facility] ELEVATOR OPERATOR FREIGHT ASSISTANCE IS GREATLY APPRECIATED IN THIS CHALLENGING SITUATION ADDITIONAL ORDER PER CLINICAL COURSE 08/21 ?PATIENT REMAINED IN STABLE FOR DISCHARGE ONCE A BED BECOMES AVAILABLE OR THE LOCAL? NURSING FACILITY ?LONG DISCUSSION IN REGARD TO THE PATIENT TODAY WITH CASE MANAGEMENT ?PLAN TO DISCHARGE TO [facility]? ONCE ABLE TO SECURE A BED ?CONTINUE CURRENT MANAGEMENT OTHERWISE ?RECHECK HER LABS IN THE NEXT 48 HOURS THE PATIENT REMAINED IN THE HOSPITAL ?CONTINUE TO MAINTAIN STRICT FALL PRECAUTIONS ?ADDITIONAL MANAGEMENT INDICATED CLINICALLY 08/20 ?CONTINUE CURRENT MANAGEMENT FOR NOW ?NO INDICATION TO MAKE ANY CHANGES TO HER CURRENT PLAN ?AWAITING PLACED INTO [facility] ?CONTINUE TO WORK WITH PHYSICAL THERAPY ? PREVIOUSLY PLANNED ?FALL AND ASPIRATION? TO BE MAINTAINED? AT ALL TIME ?IC? TO BE USED WHILE PATIENT IS AWAKE ?GET LABS INDICATED ONLY ?ADDITIONAL MANAGEMENT INDICATED? CLINICAL Time Spent With Patient Critical Care time: I spent a total of [] minutes of critical care time on this patient's care today; this time is exclusive of procedural time. Quality VTE Deep Vein Thrombosis/Pulmonary Embolism Present on Admission: No
--- NOTE | 2021-08-22 14:14 | CM.DPNOTE ---
Addendum entered by Katherine Terry 08/22/21 15:20: Emailed [facility] at [email or web address], per Melba. Katherine Terry CM Asst. Original Note: Called the following [facility] and left voice messages with all 3: [facility] [phone]; [facility] [phone]; [facility] [phone]. Katherine Terry CM Asst.
[2021-08-22] MEDS: AMLODIPINE 5 MG TABLET 10 MG PO (16:49)
[2021-08-22 20:00] VITALS: BP 128/80; PULSE 89; RESP 18; TEMP 36.8; O2SAT 94
[2021-08-22 22:32] VITALS: BP 163/99; PULSE 99
[2021-08-23 07:30] VITALS: BP 138/81; PULSE 90; RESP 18; TEMP 36.6; O2SAT 98
[2021-08-23] MEDS: TAMSULOSIN 0.4 MG CAPSULE PO (08:07)
[2021-08-23] MEDS: polyethylene glycoL 3350 17 GM POWD.PACK PO (08:07)
[2021-08-23] MEDS: ENOXAPARIN 40 MG/0.4 ML SYRINGE SUBCUT (08:07)
[2021-08-23] MEDS: METOPROLOL ER 50 MG TABLET 100 MG PO (08:08)
[2021-08-23] MEDS: AMLODIPINE 5 MG TABLET 10 MG PO (08:08)
[2021-08-23] MEDS: ASPIRIN EC 81 MG TABLET PO ×2 (08:08→21:04)
--- NOTE | 2021-08-23 08:39 | PC.NURSE ---
Addendum entered by Zeenat Rajan R.N. 08/23/21 10:16: Placed francis catheter, had 525cc clear pati urine returned, patient resting in bed, alarm on. Original Note: Patient up to bathroom x3 in 30 min, unable to void despite stating he needs to. Bladder scanned for 510cc, order taken to place francis.
--- NOTE | 2021-08-23 15:41 | PM.PN.1 ---
Subjective Subjective Interval history: PATIENT WITH SIGNIFICANT PHYSICAL DEBILITY HISTORY OF FALL WITH INJURY AWAITING PLACEMENT TO LONG TER[facility] FACILITY TODAY NO SIGNIFICANT ISSUES OVERNIGHT REPORTED PER NURSING PATIENT DID NOT HAVE ANY SIGNIFICANT COMPLAINTS Exam Vital Signs (past 8 hours): Oxygen Delivery Method Room Air Oxygen Flow Rate 0 Narrative Exam Narrative: NO ACUTE DISTRESS.? PATIENT IS ALERT?? AND AWAKE.? ORIENTED TO?? TIME, PERSON AND PLACE. APPEARS OLDER THAN STATED AGE. VITAL SIGNS STABLE HEAD ATRAUMATIC NORMOCEPHALIC NECK : NO ADENOPATHY ; NO CAROTID BRUITS EYE:? EOMI, PERRLA, NORMAL CONJUNCTIVA; NO JAUNDICE CHEST:? REGULAR RATE.? ? NO RUBS.? PMI IS NON DISPLACED.? PULMONARY:? DECREASED BS OVER THE BASES.? MILD BIBASILAR CRACKLES NOTED; NO INCREASED DULLNESS TO PERCUSSION ABDOMEN:? SOFT.? NONTENDER.? NONDISTENDED.? BOWEL SOUNDS ARE PRESENT IN ALL 4 QUADRANTS.? NO MASS. EXTREMITIES: ? NO CYANOSIS OR CLUBBING NOTED. NEURO:? CRANIAL NERVES 2-12 GROSSLY INTACT. NO FOCAL NEUROLOGICAL DEFICIT NOTED. BASELINE DEMENTIA MSK:? NORMAL RANGE OF MOTION FOR AGE.? NO JOINT EFFUSION. PSYCH : ? CALM AND COOPERATIVE.? NO PSYCHOSIS Objective Labs Result Diagrams: 08/05/21 06:05 08/05/21 06:05 [facility] Medical History Cellulitis of left leg Congestive heart failure Elevated troponin Essential hypertension Hypertension Surgical History No pertinent past surgical history Family History Mother Hypertension Sister Hypertension Social History household members: none housing: other occupational status: unemployed Smoking Status: Current every day smoker alcohol intake: current additional social history: Lives in a hotel Assessment & Plan Assessment & Plan narrative: PROBLEM LIST ?PHYSICAL DEBILITY/DECONDITIONING.? MULTIFACTORIAL ?URINARY TRACT INFECTION.? COMPLETED COURSE OF ANTIBIOTICS ?CHRONIC ATRIAL FIBRILLATION.? VENTRICULAR RATE WELL CONTROLLED ?DEMENTIA.? WITHOUT ? AGGRESSIVE BEHAVIOR? .? APPEARS TO BE AT BASELINE URINARY RETENTION. VASQUEZ CATHETER ORDERED POSSIBLE BPH. ON FLOMAX PLAN 08/23 CHECK LAB IN THE MORNING CONTINUE CURRENT MANAGEMENT FOR NOW PATIENT IS ON FLOMAX. WILL INCREASE THE DOSE MONITOR AND FURTHER FOR CLOSELY CONSIDER REFERRAL TO UROLOGIST IF INDICATED COULD ADD PROSCAR WELL AWAITING PLACEMENT TO LONG TERM FACILITY 08/22 ?SPOKE TO PATIENT AT [facility] TODAY IN REGARD TO CODE STATUS ?HE WOULD LIKE TO BE A FULL CODE ?OTHERWISE WILL CONTINUE CURRENT MANAGEMENT ?PATIENT IS AWAITING PLACEMENT TO LONG TERM FACILITY OR CORRECTION ?[facility] CARE HOME MOTHER ASSISTANCE IS GREATLY APPRECIATED IN THIS CHALLENGING ? SITUATION ?ADDITIONAL ORDER PER CLINICAL COURSE 08/21 ?PATIENT REMAINED IN STABLE FOR DISCHARGE ONCE A BED BECOMES AVAILABLE OR THE LOCAL? NURSING FACILITY ?LONG DISCUSSION IN REGARD TO THE PATIENT TODAY WITH CASE MANAGEMENT ?PLAN TO DISCHARGE TO LONG-TERM? ONCE ABLE TO SECURE A BED ?CONTINUE CURRENT MANAGEMENT OTHERWISE ?RECHECK HER LABS IN THE NEXT 48 HOURS THE PATIENT REMAINED IN THE HOSPITAL ?CONTINUE TO MAINTAIN STRICT FALL PRECAUTIONS ?ADDITIONAL MANAGEMENT INDICATED CLINICALLY 08/20 ?CONTINUE CURRENT MANAGEMENT FOR NOW ?NO INDICATION TO MAKE ANY CHANGES TO HER CURRENT PLAN ?AWAITING PLACED INTO LONG TERM FACILITY ?CONTINUE TO WORK WITH PHYSICAL THERAPY ? PREVIOUSLY PLANNED ?FALL AND ASPIRATION? TO BE MAINTAINED? AT ALL TIME ?IC? TO BE USED WHILE PATIENT IS AWAKE ?GET LABS INDICATED ONLY ?ADDITIONAL MANAGEMENT INDICATED? CLINICAL Time Spent With Patient Critical Care time: I spent a total of [] minutes of critical care time on this patient's care today; this time is exclusive of procedural time. Quality VTE Deep Vein Thrombosis/Pulmonary Embolism Present on Admission: No
[2021-08-23 20:00] VITALS: BP 129/79; PULSE 79; RESP 18; TEMP 36.6; O2SAT 97
[2021-08-23] MEDS: ACETAMINOPHEN 325 MG TABLET 650 MG PO (21:03)
--- NOTE | 2021-08-24 03:51 | PC.NURSE ---
a/o voices needs. 1pa cares and mobility. needs assist w/ elsi-care and HS care. doing well w/ new francis placed: draining clear pati urine to gravity. several times reported feeling as though I have to pee placement checked, tubing secured, cath care completed. bladder scan showed 31cc in bladder. Francis continues to be patent, draining well. encourage fluids thru this shift, and available at bedside. PRN apap given at HS for s/sx of general discomfort. call light w/in reach. bed alarm is on.
[2021-08-24 06:04] LABS: Add Manual Diff / Slide Review NO; Basophils Absolute Auto 0 /uL (0-100); Basophils Percent Auto 0.9 % (0-2); Eosinophils Absolute Auto 200 /uL (0-450); Eosinophils Percent Auto 4.5 % (2-4); Hematocrit 40.5 % (41-53); Hemoglobin 13.4 g/dL (13.5-17.5); Lymphocytes Absolute Auto 1200 /uL (1100-4500); Lymphocytes Percent Auto 24.9 % (25-40); Mean Corpuscular HGB Conc 33.2 % (30-36); Mean Corpuscular Hemoglobin 32.7 PG (26-34); Mean Corpuscular Volume 98.5 fL (80-100); Monocytes Absolute Auto 500 /uL (0-900); Monocytes Percent Auto 10.8 % (3-14); Neutrophils Absolute Auto 2800 /uL (1500-7000); Neutrophils Percent Auto 58.9 % (50-75); Platelet Count 229 X10^3/uL (150-400); Red Blood Cell Count 4.11 X10^6/uL (4.5-5.9); Red Cell Distribution Width 14.9 % (11.6-14.8); White Blood Cell Count 4.7 X10^3/uL (4.5-11.0)
[2021-08-24 06:10] LABS: Alanine Aminotransferase 16 IU/L (<50); Albumin 3.3 g/dL (3.5-5.0); Albumin Globulin Ratio 1.2 (1.0-2.8); Alkaline Phosphatase 87 U/L (38-126); Aspartate Aminotransferase 20 IU/L (17-59); BUN Creatinine Ratio 38.6 (6-22); Bilirubin Total 0.5 mg/dL (0.2-1.3); Blood Urea Nitrogen 27 mg/dL (9-20); Calcium 9.1 mg/dL (8.4-10.2); Carbon Dioxide 27 mmol/L (22-32); Chloride 106 mmol/L (98-107); Estimated Glomerular Filt Rate > 60.0 mL/min (>60); Globulin 2.7 g/dL (1.7-4.1); Glucose 98 mg/dL (80-110); HEMOLYSIS < 15 (0-50); Potassium 3.4 mmol/L (3.4-5.1); Sodium 139 mmol/L (137-145)
[2021-08-24 08:10] VITALS: BP 128/79; PULSE 86; RESP 18; TEMP 36.2; O2SAT 100
[2021-08-24] MEDS: TAMSULOSIN 0.4 MG CAPSULE 0.8 MG PO (10:47)
[2021-08-24] MEDS: ASPIRIN EC 81 MG TABLET PO ×2 (10:47→21:10)
[2021-08-24] MEDS: AMLODIPINE 5 MG TABLET 10 MG PO (10:48)
[2021-08-24] MEDS: METOPROLOL ER 50 MG TABLET 100 MG PO (10:48)
[2021-08-24] MEDS: ENOXAPARIN 40 MG/0.4 ML SYRINGE SUBCUT (11:19)
--- NOTE | 2021-08-24 12:00 | CM.DPC ---
Addendum entered by Hawa Mena R.N. 08/25/21 15:32: CM called [facility] at [phone] and spoke with amanda who stated his rate of $112 dollars a day is a low rate and she will need to review his information closer before determining if they can accept the patient. She said she would call us back Friday with her answer on if they can accept and speak with patient and DPKIMBERLY Tinoco. Hawa mena RN Case Manger Addendum entered by Hawa Mena R.N. 08/25/21 15:22: DCP continued: Cm called [facility]- [phone] and LVM asking if they have any bed availability and if so to call us back. CM called [facility] in [place] and one of the patients picked up and gave the phone to a caregiver who gave CM the managers Aric's number [phone] who when called stated they do not have any bed availability but maybe in September. CM called [facility] in [place] - they are full and will not have any beds for foreseeable future according to the reproduction production manager. CM called [facility] in [place] - currently full. Original Note: DCP Continued: [facility] and all three are currently full and not taking new residents at this time. FRANCO was told that [facility] [phone] may have bed availability so CM called and LVM with them. CM called [facility] [phone] to speak with Amanda to see what she needs to move forward to accept patient. No answer to FRANCO left voice message. Hawa mena RNsausage stringer.
[2021-08-24] MEDS: POTASSIUM CHLORIDE 20 MEQ TAB 40 MEQ PO (14:02)
--- NOTE | 2021-08-24 16:06 | P.PN_ITS ---
Subjective Subjective Date Patient Seen: 08/24/21 Interval history: PATIENT WITH SIGNIFICANT PHYSICAL DEBILITY ?HISTORY OF FALL WITH INJURY ? AWAITING? PLACEMENT TO [facility] ?TODAY PATIENT DENIES ANY INCREASING SHORTNESS OF BREATH NO CHEST PAIN NO CHEST PRESSURE HE STATED THAT HE IS DOING MUCH BETTER DENIES ANY FEVER OR CHILLS OVERNIGHT NO SIGNIFICANT ISSUES REPORTED BY NURSING OVERNIGHT Exam Vital Signs (past 8 hours): - 08/24/21 08:10 Temperature 97.1 F L Pulse Rate 86 Respiratory Rate 18 Blood Pressure 128/79 Pulse Oximetry 100 Oxygen Delivery Method Room Air Oxygen Flow Rate 0 Narrative Exam Narrative: NO ACUTE DISTRESS.? PATIENT IS ALERT?? AND AWAKE.? ORIENTED TO?? TIME, PERSON AND PLACE. APPEARS OLDER THAN STATED AGE. VITAL SIGNS STABLE HEAD ATRAUMATIC NORMOCEPHALIC NECK : NO ADENOPATHY ; NO CAROTID BRUITS EYE:? EOMI, PERRLA, NORMAL CONJUNCTIVA; NO JAUNDICE CHEST:? REGULAR RATE.? ? NO RUBS.? PMI IS NON DISPLACED.? PULMONARY:? DECREASED BS OVER THE BASES.? MILD BIBASILAR CRACKLES NOTED; NO INCREASED DULLNESS TO PERCUSSION ABDOMEN:? SOFT.? NONTENDER.? NONDISTENDED.? BOWEL SOUNDS ARE PRESENT IN ALL 4 QUADRANTS.? NO MASS. EXTREMITIES: ? NO CYANOSIS OR CLUBBING NOTED. NEURO:? CRANIAL NERVES 2-12 GROSSLY INTACT. NO FOCAL NEUROLOGICAL DEFICIT NOTED. BASELINE DEMENTIA MSK:? NORMAL RANGE OF MOTION FOR AGE.? NO JOINT EFFUSION. PSYCH : ? CALM AND COOPERATIVE.? NO PSYCHOSIS Objective Labs Result Diagrams: 08/24/21 05:35 08/24/21 05:35 Labs: Laboratory Results - last 24 hr 08/24/21 08/24/21 05:35 05:35 WBC 4.7 RBC 4.11 L Hgb 13.4 L Hct 40.5 L MCV 98.5 MCH 32.7 MCHC 33.2 RDW 14.9 H Plt Count 229 Neut % (Auto) 58.9 Lymph % (Auto) 24.9 L [place] % (Auto) 10.8 Eos % (Auto) 4.5 H Baso % (Auto) 0.9 Neut # (Auto) 2800 Lymph # (Auto) 1200 [place] # (Auto) 500 Eos # (Auto) 200 Baso # (Auto) 0 Sodium 139 Potassium 3.4 Chloride 106 Carbon Dioxide 27 BUN 27 H Creatinine 0.70 Estimated GFR > 60.0 BUN/Creatinine Ratio 38.6 H Glucose 98 Calcium 9.1 Total Bilirubin 0.5 AST 20 ALT 16 Alkaline Phosphatase 87 Total Protein 6.0 L Albumin 3.3 L Globulin 2.7 Albumin/Globulin Ratio 1.2 [facility] Medical History Cellulitis of left leg Congestive heart failure Elevated troponin Essential hypertension Hypertension Surgical History No pertinent past surgical history Family History Mother Hypertension Sister Hypertension Social History household members: none housing: other occupational status: unemployed Smoking Status: Current every day smoker alcohol intake: current additional social history: Lives in a hotel Assessment & Plan Assessment & Plan narrative: PROBLEM LIST ?PHYSICAL DEBILITY/DECONDITIONING.? MULTIFACTORIAL ?URINARY TRACT INFECTION.? COMPLETED COURSE OF ANTIBIOTICS ?CHRONIC ATRIAL FIBRILLATION.? VENTRICULAR RATE WELL CONTROLLED ?DEMENTIA.? WITHOUT ? AGGRESSIVE BEHAVIOR? .? APPEARS TO BE AT BASELINE ?URINARY RETENTION.? VASQUEZ CATHETER ORDERED ?POSSIBLE BPH.? ON FLOMAX PLAN 08/24 LABS REPEATED. FAIRLY STABLE VITAL SIGNS FAIRLY STABLE WELL MENTALLY PATIENT REMAINED AT BASELINE NO SIGN OF AGGRESSIVE BEHAVIORS WILL CONTINUE CURRENT TREATMENT OTHERWISE WILL ONLY ORDER LABS NEEDED ADDITIONAL MANAGEMENT PER CLINICAL COURSE DISCHARGE ONCE ABLE TO SECURE A BED AT THE [facility] FACILITY 08/23 ?CHECK LAB IN THE MORNING ?CONTINUE CURRENT MANAGEMENT FOR NOW ?PATIENT IS ON FLOMAX.? WILL INCREASE THE DOSE ?MONITOR AND FURTHER FOR CLOSELY ?CONSIDER REFERRAL TO UROLOGIST IF INDICATED ?COULD ADD PROSCAR WELL ?AWAITING? PLACEMENT TO [facility] FACILITY 08/22 ?SPOKE TO PATIENT AT [facility] TODAY IN REGARD TO CODE STATUS ?HE WOULD LIKE TO BE A FULL CODE ?OTHERWISE WILL CONTINUE CURRENT MANAGEMENT ?PATIENT IS AWAITING PLACEMENT TO [facility] FACILITY OR HALFWAY ?FORKLIFT OPERATOR ASSISTANCE IS GREATLY APPRECIATED IN THIS CHALLENGING ? SITUATION ?ADDITIONAL ORDER PER CLINICAL COURSE 08/21 ?PATIENT REMAINED IN STABLE FOR DISCHARGE ONCE A BED BECOMES AVAILABLE OR THE LOCAL? NURSING FACILITY ?LONG DISCUSSION IN REGARD TO THE PATIENT TODAY WITH CASE MANAGEMENT ?PLAN TO DISCHARGE TO [facility]? ONCE ABLE TO SECURE A BED ?CONTINUE CURRENT MANAGEMENT OTHERWISE ?RECHECK HER LABS IN THE NEXT 48 HOURS THE PATIENT REMAINED IN THE HOSPITAL ?CONTINUE TO MAINTAIN STRICT FALL PRECAUTIONS ?ADDITIONAL MANAGEMENT INDICATED CLINICALLY 08/20 ?CONTINUE CURRENT MANAGEMENT FOR NOW ?NO INDICATION TO MAKE ANY CHANGES TO HER CURRENT PLAN ?AWAITING PLACED INTO [facility] FACILITY ?CONTINUE TO WORK WITH PHYSICAL THERAPY ? PREVIOUSLY PLANNED ?FALL AND ASPIRATION? TO BE MAINTAINED? AT ALL TIME ?IC? TO BE USED WHILE PATIENT IS AWAKE ?GET LABS INDICATED ONLY ?ADDITIONAL MANAGEMENT INDICATED? CLINICAL Time Spent With Patient Critical Care time: I spent a total of [] minutes of critical care time on this patient's care today; this time is exclusive of procedural time. Quality VTE Deep Vein Thrombosis/Pulmonary Embolism Present on Admission: No
[2021-08-24 20:00] VITALS: BP 153/97; PULSE 83; RESP 19; TEMP 37.1; O2SAT 99
[2021-08-25 08:00] VITALS: BP 155/70; PULSE 78; RESP 18; O2SAT 98
[2021-08-25] MEDS: ENOXAPARIN 40 MG/0.4 ML SYRINGE SUBCUT (09:29)
[2021-08-25] MEDS: TAMSULOSIN 0.4 MG CAPSULE 0.8 MG PO (09:30)
[2021-08-25] MEDS: METOPROLOL ER 50 MG TABLET 100 MG PO (09:30)
[2021-08-25] MEDS: AMLODIPINE 5 MG TABLET 10 MG PO (09:30)
[2021-08-25] MEDS: ASPIRIN EC 81 MG TABLET PO ×2 (09:30→21:45)
--- NOTE | 2021-08-25 15:02 | PM.PN.1 ---
Subjective Subjective Date Patient Seen: 08/25/21 Interval history: PATIENT WITH SIGNIFICANT PHYSICAL DEBILITY ?HISTORY OF FALL WITH INJURY ? AWAITING? PLACEMENT TO [facility] PER CASE MANAGEMENT, PATIENT HAS BEEN ACCEPTED AT A [facility] FACILITY HOWEVER DISCHARGE WONT BE UNTIL 09/08 CASE MANAGEMENT WORKING ON ALTERNATIVE PLACEMENT ?TODAY NO SHORTNESS OF BREATH ?NO CHEST PAIN ?NO CHEST? PRESSURE ?HE STATED THAT HE IS DOING MUCH BETTER ?DENIES ANY FEVER OR CHILLS OVERNIGHT ?NO SIGNIFICANT ISSUES REPORTED BY NURSING OVERNIGHT Exam Vital Signs (past 8 hours): - 08/25/21 08:00 Pulse Rate 78 Respiratory Rate 18 Blood Pressure 155/70 H Pulse Oximetry 98 Oxygen Delivery Method Room Air Oxygen Flow Rate 0 Narrative Exam Narrative: NO ACUTE DISTRESS.? PATIENT IS ALERT?? AND AWAKE.? ORIENTED TO?? TIME, PERSON AND PLACE. APPEARS OLDER THAN STATED AGE. VITAL SIGNS STABLE HEAD ATRAUMATIC NORMOCEPHALIC NECK : NO ADENOPATHY ; NO CAROTID BRUITS EYE:? EOMI, PERRLA, NORMAL CONJUNCTIVA; NO JAUNDICE CHEST:? REGULAR RATE.? ? NO RUBS.? PMI IS NON DISPLACED.? PULMONARY:? DECREASED BS OVER THE BASES.? MILD BIBASILAR CRACKLES NOTED; NO INCREASED DULLNESS TO PERCUSSION ABDOMEN:? SOFT.? NONTENDER.? NONDISTENDED.? BOWEL SOUNDS ARE PRESENT IN ALL 4 QUADRANTS.? NO MASS. EXTREMITIES: ? NO CYANOSIS OR CLUBBING NOTED. NEURO:? CRANIAL NERVES 2-12 GROSSLY INTACT. NO FOCAL NEUROLOGICAL DEFICIT NOTED. BASELINE DEMENTIA MSK:? NORMAL RANGE OF MOTION FOR AGE.? NO JOINT EFFUSION. PSYCH : ? CALM AND COOPERATIVE.? NO PSYCHOSIS Objective Labs Result Diagrams: 08/24/21 05:35 08/24/21 05:35 [facility] Medical History Cellulitis of left leg Congestive heart failure Elevated troponin Essential hypertension Hypertension Surgical History No pertinent past surgical history Family History Mother Hypertension Sister Hypertension Social History household members: none housing: other occupational status: unemployed Smoking Status: Current every day smoker alcohol intake: current additional social history: Lives in a hotel Assessment & Plan Assessment & Plan narrative: PROBLEM LIST ?PHYSICAL DEBILITY/DECONDITIONING.? MULTIFACTORIAL ?URINARY TRACT INFECTION.? COMPLETED COURSE OF ANTIBIOTICS ?CHRONIC ATRIAL FIBRILLATION.? VENTRICULAR RATE WELL CONTROLLED ?DEMENTIA.? WITHOUT ? AGGRESSIVE BEHAVIOR? .? APPEARS TO BE AT BASELINE ?URINARY RETENTION.? VASQUEZ CATHETER ORDERED ?POSSIBLE BPH.? ON FLOMAX PLAN 08/25 CONTINUE CURRENT MANAGEMENT FOR NOW AWAITING PLACEMENT TO [facility] F[facility] 08/24 ?LABS REPEATED. ? FAIRLY STABLE ?VITAL SIGNS FAIRLY STABLE WELL ?MENTALLY PATIENT REMAINED AT BASELINE ?NO SIGN OF AGGRESSIVE BEHAVIORS ?WILL CONTINUE CURRENT TREATMENT OTHERWISE ?WILL ONLY ORDER LABS NEEDED ?ADDITIONAL MANAGEMENT PER CLINICAL COURSE ?DISCHARGE ONCE ABLE TO SECURE A BED AT THE [facility] FACILITY 08/23 ?CHECK LAB IN THE MORNING ?CONTINUE CURRENT MANAGEMENT FOR NOW ?PATIENT IS ON FLOMAX.? WILL INCREASE THE DOSE ?MONITOR AND FURTHER FOR CLOSELY ?CONSIDER REFERRAL TO UROLOGIST IF INDICATED ?COULD ADD PROSCAR WELL ?AWAITING? PLACEMENT TO [facility] FACILITY 08/22 ?SPOKE TO PATIENT AT [facility] TODAY IN REGARD TO CODE STATUS ?HE WOULD LIKE TO BE A FULL CODE ?OTHERWISE WILL CONTINUE CURRENT MANAGEMENT ?PATIENT IS AWAITING PLACEMENT TO [facility] F[facility] OR [facility] ?BAKER TEST ASSISTANCE IS GREATLY APPRECIATED IN THIS CHALLENGING ? SITUATION ?ADDITIONAL ORDER PER CLINICAL COURSE 08/21 ?PATIENT REMAINED IN STABLE FOR DISCHARGE ONCE A BED BECOMES AVAILABLE OR THE LOCAL? NURSING FACILITY ?LONG DISCUSSION IN REGARD TO THE PATIENT TODAY WITH CASE MANAGEMENT ?PLAN TO DISCHARGE TO CARE HOME? ONCE ABLE TO SECURE A BED ?CONTINUE CURRENT MANAGEMENT OTHERWISE ?RECHECK HER LABS IN THE NEXT 48 HOURS THE PATIENT REMAINED IN THE HOSPITAL ?CONTINUE TO MAINTAIN STRICT FALL PRECAUTIONS ?ADDITIONAL MANAGEMENT INDICATED CLINICALLY 08/20 ?CONTINUE CURRENT MANAGEMENT FOR NOW ?NO INDICATION TO MAKE ANY CHANGES TO HER CURRENT PLAN ?AWAITING PLACED INTO [facility] ?CONTINUE TO WORK WITH PHYSICAL THERAPY ? PREVIOUSLY PLANNED ?FALL AND ASPIRATION? TO BE MAINTAINED? AT ALL TIME ?IC? TO BE USED WHILE PATIENT IS AWAKE ?GET LABS INDICATED ONLY ?ADDITIONAL MANAGEMENT INDICATED? CLINICAL Time Spent With Patient Critical Care time: I spent a total of [] minutes of critical care time on this patient's care today; this time is exclusive of procedural time. Quality VTE Deep Vein Thrombosis/Pulmonary Embolism Present on Admission: No
[2021-08-25 20:11] VITALS: BP 133/80; PULSE 89; RESP 18; TEMP 36.4; O2SAT 98
[2021-08-26 08:25] VITALS: BP 134/99; PULSE 71; RESP 18; TEMP 36.4; O2SAT 99
[2021-08-26 08:37] VITALS: BP 134/99; PULSE 77
[2021-08-26] MEDS: METOPROLOL ER 50 MG TABLET 100 MG PO (08:37)
[2021-08-26] MEDS: TAMSULOSIN 0.4 MG CAPSULE 0.8 MG PO (08:37)
[2021-08-26] MEDS: ASPIRIN EC 81 MG TABLET PO ×2 (08:38→21:01)
[2021-08-26] MEDS: ENOXAPARIN 40 MG/0.4 ML SYRINGE SUBCUT (08:38)
[2021-08-26] MEDS: AMLODIPINE 5 MG TABLET 10 MG PO (08:39)
[2021-08-26 10:25] VITALS: PULSE 75
--- NOTE | 2021-08-26 15:14 | P.PN_ITS ---
Subjective Subjective Date Patient Seen: 08/26/21 Interval history: PATIENT WITH SIGNIFICANT PHYSICAL DEBILITY ?HISTORY OF FALL WITH INJURY ? AWAITING? PLACEMENT TO [facility] ?PER CASE MANAGEMENT, PATIENT HAS BEEN ACCEPTED AT A SKILLED? NURSING FACILITY ?HOWEVER DISCHARGE WONT BE UNTIL? 09/08 ?CASE MANAGEMENT WORKING? ON? ALTERNATIVE? PLACEMENT ?TODAY NO? SHORTNESS OF BREATH ?NO CHEST PAIN ?NO CHEST? PRESSURE ?HE STATED THAT HE IS DOING MUCH BETTER ?DENIES ANY FEVER OR CHILLS OVERNIGHT ?NO SIGNIFICANT ISSUES REPORTED BY NURSING OVERNIGHT Exam Vital Signs (past 8 hours): - 08/26/21 08:25 08/26/21 08:37 08/26/21 10:25 Temperature 97.6 F Pulse Rate 71 77 75 Respiratory Rate 18 Blood Pressure 134/99 H 134/99 H Pulse Oximetry 99 Oxygen Delivery Method Room Air Oxygen Flow Rate 0 Narrative Exam Narrative: NO ACUTE DISTRESS.? PATIENT IS ALERT?? AND AWAKE.? ORIENTED TO?? TIME, PERSON AND PLACE. APPEARS OLDER THAN STATED AGE. VITAL SIGNS STABLE HEAD ATRAUMATIC NORMOCEPHALIC NECK : NO ADENOPATHY ; NO CAROTID BRUITS EYE:? EOMI, PERRLA, NORMAL CONJUNCTIVA; NO JAUNDICE CHEST:? REGULAR RATE.? ? NO RUBS.? PMI IS NON DISPLACED.? PULMONARY:? DECREASED BS OVER THE BASES.? MILD BIBASILAR CRACKLES NOTED; NO INCREASED DULLNESS TO PERCUSSION ABDOMEN:? SOFT.? NONTENDER.? NONDISTENDED.? BOWEL SOUNDS ARE PRESENT IN ALL 4 QUADRANTS.? NO MASS. EXTREMITIES: ? NO CYANOSIS OR CLUBBING NOTED. NEURO:? CRANIAL NERVES 2-12 GROSSLY INTACT. NO FOCAL NEUROLOGICAL DEFICIT NOTED. BASELINE DEMENTIA MSK:? NORMAL RANGE OF MOTION FOR AGE.? NO JOINT EFFUSION. PSYCH : ? CALM AND COOPERATIVE.? NO PSYCHOSIS Objective Labs Result Diagrams: 08/24/21 05:35 08/24/21 05:35 [facility] Medical History Cellulitis of left leg Congestive heart failure Elevated troponin Essential hypertension Hypertension Surgical History No pertinent past surgical history Family History Mother Hypertension Sister Hypertension Social History household members: none housing: other occupational status: unemployed Smoking Status: Current every day smoker alcohol intake: current additional social history: Lives in a hotel Assessment & Plan Assessment & Plan narrative: PROBLEM LIST ?PHYSICAL DEBILITY/DECONDITIONING.? MULTIFACTORIAL ?URINARY TRACT INFECTION.? COMPLETED COURSE OF ANTIBIOTICS ?CHRONIC ATRIAL FIBRILLATION.? VENTRICULAR RATE WELL CONTROLLED ?DEMENTIA.? WITHOUT ? AGGRESSIVE BEHAVIOR? .? APPEARS TO BE AT BASELINE ?URINARY RETENTION.? VASQUEZ CATHETER ORDERED ?POSSIBLE BPH WITH FEW RETENTION.? ON FLOMAX PLAN 08/26 DC VASQUEZ CATHETER TODAY CONTINUE [facility] CONTINUE CURRENT MANAGEMENT OTHERWISE AGAIN PLACEMENT IS FOR 09/08 OR EARLIER IF ABLE TO SECURE ANOTHER ACCEPTING FACILITY 08/25 ?CONTINUE CURRENT MANAGEMENT FOR NOW ?AWAITING PLACEMENT TO [facility] 08/24 ?LABS REPEATED. ? FAIRLY STABLE ?VITAL SIGNS FAIRLY STABLE WELL ?MENTALLY PATIENT REMAINED AT BASELINE ?NO SIGN OF AGGRESSIVE BEHAVIORS ?WILL CONTINUE CURRENT TREATMENT OTHERWISE ?WILL ONLY ORDER LABS NEEDED ?ADDITIONAL MANAGEMENT PER CLINICAL COURSE ?DISCHARGE ONCE ABLE TO SECURE A BED AT THE [facility] FACILITY 08/23 ?CHECK LAB IN THE MORNING ?CONTINUE CURRENT MANAGEMENT FOR NOW ?PATIENT IS ON FLOMAX.? WILL INCREASE THE DOSE ?MONITOR AND FURTHER FOR CLOSELY ?CONSIDER REFERRAL TO UROLOGIST IF INDICATED ?COULD ADD PROSCAR WELL ?AWAITING? PLACEMENT TO [facility]ILITY 08/22 ?SPOKE TO PATIENT AT LENGTH TODAY IN REGARD TO CODE STATUS ?HE WOULD LIKE TO BE A FULL CODE ?OTHERWISE WILL CONTINUE CURRENT MANAGEMENT ?PATIENT IS AWAITING PLACEMENT TO [facility] FACILITY OR SKILLED NURSING ?HOGSHEAD HEAD MATCHER ASSISTANCE IS GREATLY APPRECIATED IN THIS CHALLENGING ? SITUATION ?ADDITIONAL ORDER PER CLINICAL COURSE 08/21 ?PATIENT REMAINED IN STABLE FOR DISCHARGE ONCE A BED BECOMES AVAILABLE OR THE LOCAL? NURSING FACILITY ?LONG DISCUSSION IN REGARD TO THE PATIENT TODAY WITH CASE MANAGEMENT ?PLAN TO DISCHARGE TO SENIOR LIVING? ONCE ABLE TO SECURE A BED ?CONTINUE CURRENT MANAGEMENT OTHERWISE ?RECHECK HER LABS IN THE NEXT 48 HOURS THE PATIENT REMAINED IN THE HOSPITAL ?CONTINUE TO MAINTAIN STRICT FALL PRECAUTIONS ?ADDITIONAL MANAGEMENT INDICATED CLINICALLY 08/20 ?CONTINUE CURRENT MANAGEMENT FOR NOW ?NO INDICATION TO MAKE ANY CHANGES TO HER CURRENT PLAN ?AWAITING PLACED INTO [facility]ILITY ?CONTINUE TO WORK WITH PHYSICAL THERAPY ? PREVIOUSLY PLANNED ?FALL AND ASPIRATION? TO BE MAINTAINED? AT ALL TIME ?IC? TO BE USED WHILE PATIENT IS AWAKE ?GET LABS INDICATED ONLY ?ADDITIONAL MANAGEMENT INDICATED? CLINICAL Time Spent With Patient Critical Care time: I spent a total of [] minutes of critical care time on this patient's care today; this time is exclusive of procedural time. Quality VTE Deep Vein Thrombosis/Pulmonary Embolism Present on Admission: No
--- NOTE | 2021-08-26 17:28 | CM.DPC ---
DCP continued: Cm called [facility] in [place] [phone]- LVM , CM called [facility] in [place]- CM was told there facility is full currently but may have a bed mid August if needed. CM sent Clinicals via email for them to review just in case current plan falls threw. Cm called and LVM with [facility] at [phone]. Cm department will follow up with facility in AM to see if they have availability. Hawa ortiz RN Case Manger
[2021-08-26 20:01] VITALS: BP 125/73; PULSE 89; RESP 16; TEMP 36.7; O2SAT 98
[2021-08-26] MEDS: ACETAMINOPHEN 325 MG TABLET 650 MG PO (21:01)
--- NOTE | 2021-08-26 23:26 | PC.NURSE ---
Addendum entered by Emma Shaffer R.N. 08/27/21 05:09: 0330: bladder scan shows 438mL in bladder, 2nd scan shows 458mL. patient reluctant to have catheter again, insistent on using the bathroom. which consists of standing near the toilet and dribbling urine on the floor and on his attend which is to his knees. PVR: 415mL. straight cath per standing order: collected 400mL of clear pati urine. patient expressed relief. Original Note: urinated x 2 this shift since francis dc'd. fluids at bedside. patient seems to be ambulating better since his legs are not so edematous. encourage elevating LE's when supine. ctm for voiding thru rest of shift. call light w/in reach.
[2021-08-27 07:55] VITALS: BP 144/97; PULSE 83; RESP 16; TEMP 36.6; O2SAT 100
[2021-08-27] MEDS: ENOXAPARIN 40 MG/0.4 ML SYRINGE SUBCUT (08:50)
[2021-08-27 08:51] VITALS: BP 144/97; PULSE 83
[2021-08-27] MEDS: ASPIRIN EC 81 MG TABLET PO ×2 (08:51→21:36)
[2021-08-27] MEDS: TAMSULOSIN 0.4 MG CAPSULE 0.8 MG PO (08:51)
[2021-08-27] MEDS: METOPROLOL ER 50 MG TABLET 100 MG PO (08:51)
[2021-08-27] MEDS: AMLODIPINE 5 MG TABLET 10 MG PO (08:51)
[2021-08-27 09:21] VITALS: PULSE 84
--- NOTE | 2021-08-27 13:19 | CM.DPC ---
Addendum entered by Julia Vo R.N. 08/27/21 13:26: Sent an email to medical records to see if there was a notary available, and they responded stating that they don't have one today, but will see if other members of the team are available. Gave them this correctional counselor/case manager's extension in the email. Original Note: DCP Cont: Called Corine, [facility] global commodity manager at [facility]. She indicated, she had not listened to her voice mail messages as of yet. Let her know that this correctional counselor/case manager had left her a message last Friday, regarding [facility] accepting, but not until 09/08. Gave her his address and phone number. Let her know that care management is continuing to look for a facility before than, but wanted her to be aware if a contract can be started. Corine also indicated that the state incentive is in affect if patient has been at the hospital longer than 30 days, and the accepting facility is to be compensated. Let her know that at this time, adult family homes are being searched. This correctional counselor/case manager called [facility]. Spoke to Samanthabevruslan, and he indicated that they have 3 beds available. They are located in [place]. Will ask Katherine to email him information. Called [facility] in [place], and Mikki indicated that they are full. Attempted to get in touch with [facility] in [place], and their number is suspended. Called [facility] in [place], and left a message. P: DCP to continue to work on locating facilities. Corine will also contact Brain at [facility] as well. Julia Vo RN/Burn Out Tender Lace
--- NOTE | 2021-08-27 14:33 | CM.DPNOTE ---
Emailed patient's referral packet to [email or web address]. Katherine Terry CM Asst.
--- NOTE | 2021-08-27 16:26 | PM.PN.1 ---
Subjective Subjective Date Patient Seen: 08/27/21 Interval history: Patient is a 71-year-old male admitted to the hospital with significant physical disability. He underwent hip replacement, unfortunately was discharged home and failed. He currently is awaiting placement. Patient denies any pain at this time. He has no complaints. Exam Vital Signs (past 8 hours): - 08/27/21 08:51 08/27/21 09:21 Pulse Rate 83 84 Blood Pressure 144/97 H Oxygen Delivery Method Room Air Oxygen Flow Rate 0 Narrative Exam Narrative: Pleasant male in no acute distress Resp Other: Lungs clear to auscultation Cardio Other: Cardiac exam regular rate and rhythm normal S1-S2 GI Other: Abdomen soft nontender Extrem Other: Extremity no edema Objective Labs Result Diagrams: 08/24/21 05:35 08/24/21 05:35 [facility] Medical History Cellulitis of left leg Congestive heart failure Elevated troponin Essential hypertension Hypertension Surgical History No pertinent past surgical history Family History Mother Hypertension Sister Hypertension Social History household members: none housing: other occupational status: unemployed Smoking Status: Current every day smoker alcohol intake: current additional social history: Lives in a hotel Assessment & Plan Assessment & Plan narrative: Failure to thrive -continue to await placed Hypertension -continue amlodipine and metoprolol Urinary tract infection, now resolved Chronic atrial fibrillation -continue metoprolol Constipation -continue oral medication Time Spent With Patient Critical Care time: I spent a total of [] minutes of critical care time on this patient's care today; this time is exclusive of procedural time. Quality VTE Deep Vein Thrombosis/Pulmonary Embolism Present on Admission: No
[2021-08-27 20:00] VITALS: BP 129/79; PULSE 70; RESP 18; TEMP 36.4; O2SAT 98
[2021-08-27] MEDS: ACETAMINOPHEN 325 MG TABLET 650 MG PO (21:36)
[2021-08-28 03:24] VITALS: BP 130/70; PULSE 76; RESP 18; TEMP 37.2; O2SAT 95
[2021-08-28 09:00] VITALS: BP 124/71; PULSE 78; RESP 16; TEMP 36.7; O2SAT 98
[2021-08-28] MEDS: METOPROLOL ER 50 MG TABLET 100 MG PO (09:23)
[2021-08-28] MEDS: ASPIRIN EC 81 MG TABLET PO ×2 (09:23→20:36)
[2021-08-28] MEDS: polyethylene glycoL 3350 17 GM POWD.PACK PO (09:24)
[2021-08-28] MEDS: AMLODIPINE 5 MG TABLET 10 MG PO (09:24)
[2021-08-28] MEDS: ENOXAPARIN 40 MG/0.4 ML SYRINGE SUBCUT (09:24)
[2021-08-28] MEDS: TAMSULOSIN 0.4 MG CAPSULE 0.8 MG PO (09:24)
--- NOTE | 2021-08-28 10:31 | CM.DPNOTE ---
Addendum entered by Katherine Terry 08/28/21 12:38: Emailed [email or web address] per Melba. Katherine Terry CM Asst. Addendum entered by Katherine Terry 08/28/21 12:00: Emailed referral packet per Melba to [facility] at [email or web address]. Katherine Terry CM Asst. Original Note: Faxed referral to Home Care per Laly [phone] and received fax conf. Katherine Terry CM Asst.
[2021-08-28 11:04] LABS: COVID19 -Nasal RAPID Negative (Negative)
--- NOTE | 2021-08-28 11:37 | CM.DPC ---
Addendum entered by Julia Vo R.N. 08/28/21 12:17: Called [facility]. Spoke to Mr. Garcia. They are located in [place], and have beds available. Their phone number is [phone]. [place] [address]. Their email is: [email or web address]. Mr. Garcia stated that they have a couple of beds available, and could take patient soon. Katherine will email this over to their adult family home. Was able to get in touch with Corine Pennington, [facility] BUSINESS ENTERPRISE OFFICER, and updated her. Let her know that [facility] in [place] does not have Medicaid beds now, and that another [facility] facility was contacted. Corine indicated, he would not need a new assessment if hospitalist did diagnose him with dementia, but would change rate. Corine indicated that she attempted to contact [facility] at [facility] and left him a message, this is the facility that could not accept him until 09/08. Corine indicated to give [facility] her phone number if there are any questions. Called Mr. Garcia back and gave him her number. They will need to do a video assessment if they can accept, and will need to call in patient's friend for this, Aric. Will need to see when he can be in the area to do this. Gave Mr. Garcia the phone number of this outsole caser after he receives the referral. Julia Vo RN/Cartridge Gauger Original Note: DCP Cont: at [facility] was considering, and was going to have a nurse come out this afternoon and do an assessment. Left Corine [facility] BUSINESS ENTERPRISE OFFICER a message. It turned out that Shaina indicated that she has no Medicaid beds available as of today, but will continue to check tomorrow. She did give a referral for a person by the name of Charlee. Her phone number is: [phone]. Called Charlee. The facility is a memory care unit called [facility]. They are in [place]. She did indicate, patient should have a diagnosis of dementia, and normally, if diagnosed, the daily rate is $130.00. She stated, to go ahead and email over the referral and she will look at it. Her email is: [email or web address]. Asking Katherine to email the referral over to her. P: Have attempted to get in touch with Corine at [facility], and message was left. [facility] [place] was given referral, and emailing [facility]. Patient does not have a current diagnosis of Dementia, but may indicate in records, and can ask hospitalist. Julia Vo RN/Cartridge Gauger
--- NOTE | 2021-08-28 17:08 | PM.PN.1 ---
Subjective Subjective Date Patient Seen: 08/28/21 Interval history: 71 y/o male here in the hospital awaiting placement. No specific issues today. He has frequent urination, post void residual not significant. Patient feels he is emptying his bladder. Exam Vital Signs (past 8 hours): Oxygen Delivery Method Room Air Oxygen Flow Rate 0 Narrative Exam Narrative: pleasant male lying comfortably Resp Other: Lungs: clear to auscultation Cardio Other: CV: RRR nl Sl S2 GI Other: abd: soft/ non tender/ non distended Extrem Other: no edema, chronic lower extremity venous stasis changes Objective Labs Result Diagrams: 08/24/21 05:35 08/24/21 05:35 Labs: Laboratory Results - last 24 hr 08/28/21 10:40 SARS-CoV-2 (PCR) Negative [facility] Medical History Cellulitis of left leg Congestive heart failure Elevated troponin Essential hypertension Hypertension Surgical History No pertinent past surgical history Family History Mother Hypertension Sister Hypertension Social History household members: none housing: other occupational status: unemployed Smoking Status: Current every day smoker alcohol intake: current additional social history: Lives in a hotel Assessment & Plan Assessment & Plan narrative: Failure to thrive -continue to await placed Hypertension -continue amlodipine and metoprolol Urinary tract infection, now resolved Urinary retention-improved Chronic atrial fibrillation -continue metoprolol Constipation -continue oral medication Time Spent With Patient Critical Care time: I spent a total of [] minutes of critical care time on this patient's care today; this time is exclusive of procedural time. Quality VTE Deep Vein Thrombosis/Pulmonary Embolism Present on Admission: No
[2021-08-28 20:00] VITALS: BP 120/90; PULSE 81; RESP 16; TEMP 37; O2SAT 98
[2021-08-28] MEDS: ACETAMINOPHEN 325 MG TABLET 650 MG PO (20:36)
--- NOTE | 2021-08-29 05:52 | PC.NURSE ---
Repairer Kiln Car Note- Patient incontient of urine all night. Patient attempted to go to bathroom several times. Unsure if patient even attempted to void in the restroom due to patient insisting on shutting door but only staying to bathroom long enough to turn walker around and come back out. Brief notably wet, patient refused to change brief several times. Patient did finally agree to cleaning up and getting new brief. Patient bladder scanned highest reading this shift was 280cc's. Patient reported bladder feeling empty.
[2021-08-29 07:53] VITALS: BP 141/97; PULSE 79; RESP 16; TEMP 36.7; O2SAT 98
--- NOTE | 2021-08-29 09:12 | CM.DPC ---
DCP Cont: SW called the AF called [facility] admissions Jose ([phone]) and she confirms they are willing to review but did not receive the HCS assessment emailed yesterday and confirmed the email address as [email or web address]. Jonathanaristeo states she would also like to talk to pt's assigned [facility] SW or HCS milk sampler to confirm the daily rate, any extra hospital incentives, and any other possible needs first before determining if they are willing to do a bedside assessment even via FaceTime. Jose confirms she called pt's HCS milk sampler Corine Hargrove [phone] yesterday and left msg. ANTHONY Murphy kindly re-emailing pt's HCS assessment and daily rate to [facility] today. HANK also called HCS Corine Hargrove and left msg requesting she call Jose at [facility] and provided the contact info as well as this SW contact info. Plan: SW to follow closely today with [facility] to confirm they received the assessment and daily rate and if she has spoken to pt's HCS Corine Hargrove. Lynn Hill, TOOL DIE MAKER
[2021-08-29] MEDS: polyethylene glycoL 3350 17 GM POWD.PACK PO (09:51)
[2021-08-29] MEDS: AMLODIPINE 5 MG TABLET 10 MG PO (09:52)
[2021-08-29] MEDS: ASPIRIN EC 81 MG TABLET PO ×2 (09:52→20:34)
[2021-08-29] MEDS: ENOXAPARIN 40 MG/0.4 ML SYRINGE SUBCUT (09:52)
[2021-08-29] MEDS: TAMSULOSIN 0.4 MG CAPSULE 0.8 MG PO (09:52)
[2021-08-29] MEDS: METOPROLOL ER 50 MG TABLET 100 MG PO (09:52)
--- NOTE | 2021-08-29 12:55 | P.PN_ITS ---
Subjective Subjective Date Patient Seen: 08/29/21 Interval history: 71-year-old male here in the hospital waiting placement. He has urinary frequency, he has had some urinary retention. Patient was scanned yesterday and not found to have significant urinary retention. He feels that he is emptying his bladder. Exam Vital Signs (past 8 hours): - 08/29/21 07:53 Temperature 98.0 F Pulse Rate 79 Respiratory Rate 16 Blood Pressure 141/97 H Pulse Oximetry 98 Oxygen Delivery Method Room Air Oxygen Flow Rate 0 Narrative Exam Narrative: Pleasant male resting comfortably in no distress Resp Other: Lungs clear to auscultation Cardio Other: Cardiac exam irregularly irregular normal S1-S2 GI Other: Abdomen soft nontender nondistended Other: Arredondo catheter removed Skin Other: Bilateral lower extremity venous stasis change Psych Other: Extremity no edema Objective Labs Result Diagrams: 08/24/21 05:35 08/24/21 05:35 [facility] Medical History Cellulitis of left leg Congestive heart failure Elevated troponin Essential hypertension Hypertension Surgical History No pertinent past surgical history Family History Mother Hypertension Sister Hypertension Social History household members: none housing: other occupational status: unemployed Smoking Status: Current every day smoker alcohol intake: current additional social history: Lives in a hotel Assessment & Plan Assessment & Plan narrative: Failure to thrive -continue to await placed Hypertension -continue amlodipine and metoprolol Urinary tract infection, now resolved Urinary retention-improved Chronic atrial fibrillation -continue metoprolol Constipation -continue oral medication Disposition continue to await placement Time Spent With Patient Critical Care time: I spent a total of [] minutes of critical care time on this patient's care today; this time is exclusive of procedural time. Quality VTE Deep Vein Thrombosis/Pulmonary Embolism Present on Admission: No
[2021-08-29 19:50] VITALS: BP 121/71; PULSE 85; RESP 17; TEMP 36.3; O2SAT 98
[2021-08-30 07:50] VITALS: BP 133/84; PULSE 78; RESP 18; TEMP 36.8; O2SAT 98
[2021-08-30] MEDS: METOPROLOL ER 50 MG TABLET 100 MG PO (08:15)
[2021-08-30] MEDS: polyethylene glycoL 3350 17 GM POWD.PACK PO (08:15)
[2021-08-30] MEDS: TAMSULOSIN 0.4 MG CAPSULE 0.8 MG PO (08:15)
[2021-08-30] MEDS: ENOXAPARIN 40 MG/0.4 ML SYRINGE SUBCUT (08:16)
[2021-08-30] MEDS: ASPIRIN EC 81 MG TABLET PO ×2 (08:16→20:30)
[2021-08-30] MEDS: AMLODIPINE 5 MG TABLET 10 MG PO (08:16)
--- NOTE | 2021-08-30 11:26 | PC.NURSE ---
Addendum entered by Idania Muller R.N. 08/30/21 15:31: Patient is impulsive and will get up by himself to use the bathroom. He does know that he should not do this. He also takes his own chair alarm off. He is sitting up in the chair, his door will be open and visible at all times. Voices no complaint of pain or discomfort. Original Note: Assess- Patient is alert and oriented x2 to 3, he does forget his limitations and tries to get out of bed on his own. He ate well at breakfast and is sitting down in the chair, reclining and watching television. Patients legs look much better, he does have 1+ edema to his lower extremities but skin is clear to shins. Patient resting comfortably.
--- NOTE | 2021-08-30 15:53 | PM.PN.1 ---
Subjective Subjective Date Patient Seen: 08/30/21 Interval history: 71 y/o male with severe cognitive deficits awaiting placement. He has no specific complaints today Exam Vital Signs (past 8 hours): Oxygen Delivery Method Room Air Oxygen Flow Rate 0 Narrative Exam Narrative: Pleasant gentleman resting comfortably in no obvious distress Resp Other: Lungs clear to auscultation Cardio Other: Cardiac exam irregularly irregular normal S1-S2 GI Other: Abdomen soft nontender nondistended Skin Other: Chronic venous stasis changes Extrem Other: No edema Objective Labs Result Diagrams: 08/24/21 05:35 08/24/21 05:35 [facility] Medical History Cellulitis of left leg Congestive heart failure Elevated troponin Essential hypertension Hypertension Surgical History No pertinent past surgical history Family History Mother Hypertension Sister Hypertension Social History household members: none housing: other occupational status: unemployed Smoking Status: Current every day smoker alcohol intake: current additional social history: Lives in a hotel Assessment & Plan Assessment & Plan narrative: Failure to thrive -continue to await placed Hypertension -continue amlodipine and metoprolol Urinary tract infection, now resolved Urinary retention-improved Chronic atrial fibrillation -continue metoprolol Constipation -continue oral medication Patient underwent speech evaluation -during his admission, this revealed a slums score of 6/30, indicating impaired cognitive function, patient has significant difficulty with immediate recall, patient has severely impaired functional capacity, cognitive impairments include short-term memory attention executive function and following directions. Disposition continue to await placement Time Spent With Patient Critical Care time: I spent a total of [] minutes of critical care time on this patient's care today; this time is exclusive of procedural time. Quality VTE Deep Vein Thrombosis/Pulmonary Embolism Present on Admission: No
--- NOTE | 2021-08-30 16:56 | CM.DPC ---
Addendum entered by Hawa Mena R.N. 08/31/21 17:00: CM received a call from Safia Henderson- who is updating his assessment an extra $30 dollars and updating his information then will send the new assessment to CM who will get it print it and leave it for the new CM tomorrow to get the patient to sign it and email it back to safia at [email or web address] who will finalize it and get a copy to the [facility] tomorrow. Hawa Mena RN Case Manger Addendum entered by Hawa Mena R.N. 08/31/21 16:30: FRANCO spoke with Laurita Stanford at [facility] who stated she will accept the patient on Friday09/03/21 but needs a negative covid PCR, Medications sent to [facility] in [place] and needs SAFIA to verify assessment is finished and send a full copy to the facility. FRANCO called Safia at [phone] and left her a voice message explaining what was needed. FRANCO also let her know that Dr. Nicole came back to today and stated that the patient actually does have a diagnosis of Dementia and it is now noted in his chart. per previous conversation-FRANCO spoke with Safia and she stated if the patient had a dx of dementia then he would qualify for $30 more a day for his rate. FRANCO spoke with DR. Nicole and asked if she felt he had dementia or the start of dementia? at that time she had said no but stated today she was mistaken and he does have a diagnosis of dementia. [facility] prefers email communication and would like the covid test and a face sheet emailed to her at [email or web address] since the covid test needs to be done on Friday Cm will ask department to email those results to the facility tomorrow. Franco also spoke with Dr. Nicole about the RX scripts needed to be sent to the [facility]- she stated she cannot send scripts to this pharmacy since they are not in her computer- FRANCO suggested printing the RXs and CM will fax it to the pharmacy at [phone] and there phone number is [phone] to verify they received those Rxs once they are sent. Early Friday patient will need his DPOA notarized and will need transportation set up for the patient to go to the [facility] in [place]. Hawa Jorge Original Note: DCP Continued: FRANCO spoke with patients state appointed tip out worker SAFIA at [phone] to discuss the patients placement issues. FRANCO spoke with Safia and she stated if the patient had a dx of dementia then he would qualify for $30 more a day for his rate. FRANCO spoke with DR. Nicole and asked if she felt he had dementia or the start of dementia? Dr Nicole stated she doesn't feel that he has the start of dementia at this time. CM updated tip out worker Safia. Franco spoke with [facility] at [phone] who wanted to know if patient would qualify for the extra $30 a day and stated she would take the patient if he did. patient does not qualify for this because he does not have a DX of Dementia. so they are not able to accept the patient at this time. FRANCO spoke with [facility] in [place] - they are currently full and unable to accept patients at this time FRANCO spoke with another [facility] in [facility] that Safia had contacted but wasn't able to understand the facilities title. According to Safia they are reviewing the patient and might accept him but FRANCO will follow up with SAFIA tomorrow to get their contact information since I had a hard time understanding the message left. FRANCO Called and LVM with [facility] in [place] - FRANCO will call again tomorrow to see if Cm can reach someone. Hawa Jorge.
[2021-08-30 20:01] VITALS: BP 130/84; PULSE 71; RESP 20; TEMP 36.4; O2SAT 99
[2021-08-31 08:00] VITALS: BP 120/73; PULSE 78; RESP 18; O2SAT 100
--- NOTE | 2021-08-31 08:01 | PC.NURSE ---
Addendum entered by Idania Muller R.N. 08/31/21 18:31: Patient ate well at dinner, he is resting now. Denies any pain or discomfort. Addendum entered by Idania Muller R.N. 08/31/21 14:01: Patient up to the bathroom on his own with chair alarm going off. Patient using the bedside table to walk to the bathroom. Explained to patient that we need to use the walker to ambulate. He voided and back to chair. Original Note: 0800- Patient is in good spirits this morning. He denies pain and is sitting up in his chair waiting for breakfast. He has no complaints at this time. BS are clear to auscultation, patient has two plus edema to his lower legs and 1+ to his feet. Non pitting.
[2021-08-31] MEDS: TAMSULOSIN 0.4 MG CAPSULE 0.8 MG PO (08:56)
[2021-08-31] MEDS: polyethylene glycoL 3350 17 GM POWD.PACK PO (08:56)
[2021-08-31] MEDS: AMLODIPINE 5 MG TABLET 10 MG PO (08:56)
[2021-08-31] MEDS: METOPROLOL ER 50 MG TABLET 100 MG PO (08:56)
[2021-08-31] MEDS: ENOXAPARIN 40 MG/0.4 ML SYRINGE SUBCUT (08:57)
[2021-08-31] MEDS: ASPIRIN EC 81 MG TABLET PO (08:57)
--- NOTE | 2021-08-31 17:32 | P.PN_ITS ---
Subjective Subjective Date Patient Seen: 08/31/21 Interval history: 71-year-old male admitted to the hospital with failure to thrive awaiting placement he has no specific complaint Exam Vital Signs (past 8 hours): Oxygen Delivery Method Room Air Oxygen Flow Rate 0 Narrative Exam Narrative: Pleasant gentleman sitting in his chair eating dinner Resp Other: Lungs clear to auscultation Cardio Other: Cardiac exam: Irregularly irregular normal S1-S2 GI Other: Abdomen soft nontender nondistended Skin Other: Lower extremities with chronic venous stasis changes Objective Labs Result Diagrams: 08/24/21 05:35 08/24/21 05:35 [facility] Medical History Cellulitis of left leg Congestive heart failure Elevated troponin Essential hypertension Hypertension Surgical History No pertinent past surgical history Family History Mother Hypertension Sister Hypertension Social History household members: none housing: other occupational status: unemployed Smoking Status: Current every day smoker alcohol intake: current additional social history: Lives in a hotel Assessment & Plan Assessment & Plan narrative: Failure to thrive -continue to await placed -patient has a bed at an outside facility from Friday -will prescribe outpatient medications today in anticipation for Friday discharge Hypertension -continue amlodipine and metoprolol Urinary tract infection, now resolved Urinary retention-improved Chronic atrial fibrillation -continue metoprolol Constipation -continue oral medication Patient underwent speech evaluation -during his admission, this revealed a slums score of 6/30, indicating impaired cognitive function, patient has significant difficulty with immediate recall, patient has severely impaired functional capacity, cognitive impairments include short-term memory attention executive function and following directions. Disposition continue to await placement-plans underway for discharge on Friday Time Spent With Patient Critical Care time: I spent a total of [] minutes of critical care time on this patient's care today; this time is exclusive of procedural time. Quality VTE Deep Vein Thrombosis/Pulmonary Embolism Present on Admission: No
[2021-08-31 20:26] VITALS: BP 125/75; PULSE 73; RESP 16; TEMP 36.8; O2SAT 99
[2021-08-31] MEDS: ACETAMINOPHEN 325 MG TABLET 650 MG PO (21:30)
[2021-09-01 07:24] VITALS: BP 134/92; PULSE 73; RESP 14; TEMP 36.4; O2SAT 99
[2021-09-01 09:00] VITALS: BP 134/92; PULSE 73
[2021-09-01] MEDS: METOPROLOL ER 50 MG TABLET 100 MG PO (09:00)
[2021-09-01] MEDS: TAMSULOSIN 0.4 MG CAPSULE 0.8 MG PO (09:00)
[2021-09-01] MEDS: AMLODIPINE 5 MG TABLET 10 MG PO (09:01)
--- NOTE | 2021-09-01 09:32 | CM.DPC ---
Addendum entered by Julia Vo R.N. 09/01/21 13:33: Had provider sign assessment, and this leather case finisher signed, and scanned and emailed it over to Corine Pennington [facility]. Original Note: DCP Cont: Met with patient briefly, and had him sign his updated assessment by the nursing home social worker. Explained to him that this is for the adult family [facility] so they can get paid. Patient has been compliant with all care. It is confirmed according to notes, that he was diagnosed with dementia, which increased his daily rate. [facility], has accepted patient. P: DCP to attempt to get this emailed to Corine Clement [facility]. Julia Vo RN/Campus Director
[2021-09-01 10:12] VITALS: BP 138/88
--- NOTE | 2021-09-01 15:59 | CM.DPC ---
DCP Cont: Asked Dr. Rudolph if COVID PCR can be ordered, and he gave permission. Let nurse, Mallorie know, so she can put in order. Will attempt to get medication sheets completed tomorrow to be faxed over to his pharmacy. [facility] will also need face sheet, and assessment. Will attempt to get this completed tomorrow and emailed to adult [facility]. P: DCP to continue to work on discharge. Nurse will put in COVID PCR today, and can email over to [facility]. May need to contact friend, Aric Wise, to see if he can possibly transport patient to this facility. Julia Vo RN/Cotton Agent
--- NOTE | 2021-09-01 16:38 | PC.NURSE ---
Pt condition remains essentially unchanged. Denies any discomfort at this time 1PA to BR Call light w/in reach. chair/bed alarm on for pt safety. COntinue w/plan of care.
--- NOTE | 2021-09-01 20:28 | P.PN_ITS ---
Subjective Subjective Interval history: Patient denies any acute complaints this morning. He endorses good PO intake. Denies any issues with urination or bowel movements. States he's been working with PT/OT pretty well. Exam Vital Signs (past 8 hours): Oxygen Delivery Method Room Air Oxygen Flow Rate 0 Narrative Exam Narrative: Narrative Exam Narrative: Pleasant gentleman sitting in his chair eating breakfast Resp Other: Lungs clear to auscultation Cardio Other: Cardiac exam:? Irregularly irregular, normal S1-S2 GI Other: Abdomen soft non-tender, non-distended, bowel sounds present Skin Other: Lower extremities with chronic venous stasis changes Objective Labs Result Diagrams: 08/24/21 05:35 08/24/21 05:35 [facility] Medical History Cellulitis of left leg Congestive heart failure Elevated troponin Essential hypertension Hypertension Surgical History No pertinent past surgical history Family History Mother Hypertension Sister Hypertension Social History household members: none housing: other occupational status: unemployed Smoking Status: Current every day smoker alcohol intake: current additional social history: Lives in a hotel Assessment & Plan Assessment & Plan narrative: 1. Failure to thrive -continue to await placement -patient has a bed at an outside facility, likely discharge on Sep 03 2. Hypertension -continue amlodipine and metoprolol 3. Urinary tract infection, now resolved 4. Urinary retention-improved 5. Chronic atrial fibrillation -continue metoprolol 6. Constipation -continue oral medication 7. Patient underwent speech evaluation -during his admission, this revealed a slums score of 6/30, indicating impaired cognitive function, patient has significant difficulty with immediate recall, patient has severely impaired functional capacity, cognitive impairments include short-term memory attention executive function and following directions. Disposition continue to await placement-plans underway for discharge on Friday Time Spent With Patient Critical Care time: I spent a total of [] minutes of critical care time on this patient's care to day; this time is exclusive of procedural time. Quality VTE Deep Vein Thrombosis/Pulmonary Embolism Present on Admission: No
[2021-09-01] MEDS: ACETAMINOPHEN 325 MG TABLET 650 MG PO (21:08)
[2021-09-01 21:33] VITALS: BP 141/82; PULSE 74; RESP 18; TEMP 36.8; O2SAT 94
[2021-09-02 02:37] LABS: COVID19 -Nasal RAPID Negative (Negative)
[2021-09-02 08:00] VITALS: BP 144/62; PULSE 81; RESP 18; TEMP 36.6; O2SAT 98
--- NOTE | 2021-09-02 09:17 | CM.DPC ---
Addendum entered by Julia Vo R.N. 09/02/21 15:32: Spoke to Ezrashell at [facility], and they can accept him at any time, prefers early afternoon. Contacted patient's friend, Carlito, and he is coming up to [place] at 10:00, to get his car cleaned out so it can be towed, and can then transport. This director of casework also emailed medical records department and asked if they can notarize his POA form, which is here in the office, since patient is discharging tomorrow. Addendum entered by Julia Vo R.N. 09/02/21 14:03: Hospitalist completed medication sheets and prescriptions. Faxed them over to [facility], including face sheet of patient. Addendum entered by Julia Vo R.N. 09/02/21 13:06: Called [facility], and spoke to Darell. Confirmed that patient will not only need signed med sheets, but prescriptions. Placed print out on hospitalist's desk to sign, asking him if he can do prescriptions as well for his medications so pharmacy can be faxed. Will plan on faxing face sheet and medications to pharmacy. Confirmed that [facility] is familiar with Laurita at [facility]. Gave him her phone number as well. Will also leave Corine Pennington a message with update as well. Julia Vo RN/Executive Chef Assistant Addendum entered by Julia Vo R.N. 09/02/21 10:32: Called Laurita at [facility], and confirmed that they can accept patient tomorrow. Let her know that face sheet, COVID results, and assessment was emailed to her. Called patient's friend, Aric Tinoco, and he stated, he can transport patient [place]. [place] [address] [facility]. Asked hospitalist to complete medications so this can be faxed over to [facility]. 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 Original Note: DCP Cont: Emailed face sheet, COVID results, and assessment by Corine Pennington, over to Ezrashell Abelcristin at [facility]. In the email, let her know that when medication sheet is ready, can fax them over to the pharmacy. Will follow up with a phone call to confirm that she can accept tomorrow. Julia Vo RN/Executive Chef Assistant
[2021-09-02] MEDS: METOPROLOL ER 50 MG TABLET 100 MG PO (10:37)
[2021-09-02] MEDS: polyethylene glycoL 3350 17 GM POWD.PACK PO (10:38)
[2021-09-02] MEDS: AMLODIPINE 5 MG TABLET 10 MG PO (10:38)
[2021-09-02] MEDS: TAMSULOSIN 0.4 MG CAPSULE 0.8 MG PO (10:38)
[2021-09-02] MEDS: ACETAMINOPHEN 325 MG TABLET 650 MG PO (10:40)
[2021-09-02 16:00] VITALS: BP 131/80; PULSE 78; RESP 18; TEMP 37.2; O2SAT 98
--- NOTE | 2021-09-02 16:20 | PM.PN.1 ---
Subjective Subjective Interval history: Patient denies acute complaints this morning. States he's been reading old books provided by the hospital to keep himself busy. He understands that he's pending placement, and will likely be discharged tomorrow. Exam Vital Signs (past 8 hours): Oxygen Delivery Method Room Air Oxygen Flow Rate 0 Const Other: Patient sitting up in chair upon my entering the room, reading, and in no apparent acute distress. Eyes Other: No scleral icterus appreciated. Neck Other: No carotid bruits noted. Resp Other: Clear to auscultation bilaterally, without adventitious breath sounds appreciated. Cardio Other: Regular rate and rhythm. S1 and S2 auscultated with no extra heart sounds or murmurs appreciated. GI Other: Soft, non-distended, non-tender, bowel sounds present. Extrem Other: Stasis dermatitis changes appreciated to bilateral lower extremities, with no edema appreciated. Palpable radial and dorsalis pedis pulses bilaterally. Objective Labs Result Diagrams: 08/24/21 05:35 08/24/21 05:35 Labs: Laboratory Results - last 24 hr 09/02/21 02:19 SARS-CoV-2 (PCR) Negative [facility] Medical History Cellulitis of left leg Congestive heart failure Elevated troponin Essential hypertension Hypertension Surgical History No pertinent past surgical history Family History Mother Hypertension Sister Hypertension Social History household members: none housing: other occupational status: unemployed Smoking Status: Current every day smoker alcohol intake: current additional social history: Lives in a hotel Assessment & Plan Assessment & Plan narrative: 1. Failure to thrive -continue to await placement -patient has a bed at an outside facility, likely discharge on Sep 03 2. Hypertension -continue amlodipine and metoprolol 3. Urinary tract infection, now resolved 4. Urinary retention, improved 5. Chronic atrial fibrillation -continue metoprolol 6. Constipation -continue oral medication 7. Impaired cognitive function -during his admission, patient underwent speech evaluation, which this revealed a slums score of 6/30 -patient has significant difficulty with immediate recall, patient has severely impaired functional capacity, cognitive impairments include short-term memory attention executive function and following directions VTE prophylaxis: Lovenox 40 mg daily Disposition continue to await placement-plans underway for discharge on Sep 03 Time Spent With Patient Critical Care time: I spent a total of [] minutes of critical care time on this patient's care today; this time is exclusive of procedural time. Quality VTE Deep Vein Thrombosis/Pulmonary Embolism Present on Admission: No
[2021-09-02] MEDS: ENOXAPARIN 40 MG/0.4 ML SYRINGE SUBCUT (19:08)
[2021-09-02 20:11] VITALS: BP 125/70; PULSE 73; RESP 18; TEMP 36.6; O2SAT 96
[2021-09-03 08:26] VITALS: BP 146/92; PULSE 88
[2021-09-03] MEDS: AMLODIPINE 5 MG TABLET 10 MG PO (08:26)
[2021-09-03] MEDS: TAMSULOSIN 0.4 MG CAPSULE 0.8 MG PO (08:26)
[2021-09-03] MEDS: polyethylene glycoL 3350 17 GM POWD.PACK PO (08:26)
[2021-09-03] MEDS: METOPROLOL ER 50 MG TABLET 100 MG PO (08:26)
[2021-09-03] MEDS: ENOXAPARIN 40 MG/0.4 ML SYRINGE SUBCUT (08:27)
[2021-09-03 08:58] VITALS: BP 115/66; PULSE 79; RESP 18; TEMP 36.6; O2SAT 98
--- NOTE | 2021-09-03 10:08 | CM.DPC ---
Addendum entered by Julia Vo R.N. 09/03/21 11:59: Spoke to Brain, from [facility]. He wanted to know if medication orders had been faxed over to [facility]. Let him know that these were faxed yesterday, and that the only item that they will need is the Discharge Summary. Let him know that patient's friend, Aric, is picking up patient at approximately 12:30. Original Note: DCP Cont: Working on getting patient discharged to [facility] today. Updated nurse, Delmi. Spoke to patient's friend, Aric Tinoco. 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 He mentioned he is also working on getting his mother into a facility. Spoke to [facility]. They received all of the medication information, but need a discharge summary. Will ask hospitalist to go ahead and discharge patient and include a discharge summary. Medical Records are unable to come up and notarize POA paperwork, due to concerns about not having appropriate PPE. Did let them know that patient is not COVID positive, but they will not be able to come up. Will send paperwork with patient and friend, and he may be able to have it notarized near his facility. P: DCP to work on discharge orders with the plan of patient discharging today. Gave phone number of [facility] to nurse for report, as well as their address. Julia Vo RN/Industrial Retrofit Designer
--- NOTE | 2021-09-03 10:54 | PM.PN.1 ---
Subjective Subjective Interval history: Patient denies any acute complaints this morning. He reports eating and drinking OK, and denies any issues with urination or bowel movements. He reports ambulating regularly. He is aware that he'll be transferring to placement today. Exam Vital Signs (past 8 hours): - 09/03/21 08:26 09/03/21 08:58 Temperature 97.8 F Pulse Rate 88 79 Respiratory Rate 18 Blood Pressure 146/92 H 115/66 Pulse Oximetry 98 Oxygen Delivery Method Room Air Oxygen Flow Rate 0 Narrative Exam Narrative: Const Other: Patient sitting up in chair upon my entering the room, and in no apparent acute distress. Eyes Other: No scleral icterus appreciated. Neck Other: No carotid bruits noted. Resp Other: Clear to auscultation bilaterally, without adventitious breath sounds appreciated. Cardio Other: Regular rate and rhythm. S1 and S2 auscultated with no extra heart sounds or murmurs appreciated. GI Other: Soft, non-distended, non-tender, bowel sounds present. Extrem Other: Stasis dermatitis changes appreciated to bilateral lower extremities, with no edema appreciated. Palpable radial pulses bilaterally. Objective Labs Result Diagrams: 08/24/21 05:35 08/24/21 05:35 [facility] Medical History Cellulitis of left leg Congestive heart failure Elevated troponin Essential hypertension Hypertension Surgical History No pertinent past surgical history Family History Mother Hypertension Sister Hypertension Social History household members: none housing: other occupational status: unemployed Smoking Status: Current every day smoker alcohol intake: current additional social history: Lives in a hotel Assessment & Plan Assessment & Plan narrative: 1. Failure to thrive -patient has a bed at an outside facility, likely discharge on Sep 03 2. Hypertension -continue amlodipine and metoprolol 3. Urinary tract infection, now resolved 4. Urinary retention, improved 5. Chronic atrial fibrillation -continue metoprolol succinate 6. Constipation -continue oral medication 7. Impaired cognitive function -during his admission, patient underwent speech evaluation, which this revealed a slums score of 6/30 -patient has significant difficulty with immediate recall, patient has severely impaired functional capacity, cognitive impairments include short-term memory attention executive function and following directions VTE prophylaxis: Lovenox 40 mg daily Disposition: Plans underway for discharge on Sep 03 Time Spent With Patient Critical Care time: I spent a total of [] minutes of critical care time on this patient's care today; this time is exclusive of procedural time. Quality VTE Deep Vein Thrombosis/Pulmonary Embolism Present on Admission: No
--- NOTE | 2021-09-03 10:57 | PM.DS.1 ---
History of Present Illness History of Present Illness Chief complaint: S/P left hip repair continued pain, CAUTI Narrative: This history is largely gleaned from report from the ED provider, previous documentation and nursing as the patient is unable to provide much of a history due to extreme weakness and lethargy. He falls asleep while being spoken to or while he is speaking. Rayo Estrada 71-year-old gentleman with multiple repeat visits to the emergency department and several admissions, has been living in his car for years presented earlier today and was found sitting in his car outside the emergency department. jig worker was sent to see if they could help and convinced him to come into the ED for further evaluation. He was found in stool and and nursing staff helped cleaning him, changing his catheter etc and feeding him as he told them he had not eaten for 3 days.? He states that over the last couple of days he has gotten so weak that he can not transfer.? At this time he quite literally cannot stand up which is a new finding for him.? He had been able to ambulate with a walker previously.? He has a history of hypertension, atrial fibrillation diastolic heart failure. On July 02 of this year he had a left femoral neck fracture with a cemented unipolar left hip placed.? During that hospital and subsequent, attempts were made to get him to group home facility for rehabilitation but he was unable/unwilling to do that.? Apparently a hotel room was available for a couple of days only and he has since moved back to his car.? Since the left hip surgery, he has been seen on the for hip pain, the for acute bladder infection treated with antibiotics, the for acute urinary retention and Arredondo catheter was placed, July 26 for left hip pain.? With each of these visits he was able to ambulate with his walker.? Today he is globally weak cannot get out of his wheelchair needed multiple people to assist him to get out of his car was covered in stool and urine.? He is amenable to a group home facility placement at this point and is within the 30 day window of a hospital stay greater than 3 nights with discharge on July 02.? After getting the patient cleaned up and fed, he was assessed in the ED for additional hip repair complications and underwent a chest x-ray all of which imaging studies were negative for anything acute.? Temperature was 97.9?, blood pressure 146/98, heart rate 98, respiratory rate 16, oxygen saturation 98% on room air, he weighs not be 7.5 kg with a BMI of 30.7.? CBC is unremarkable, his platelet count is 295, bicarb was 34, glucose 119, his proBNP was 3000, and his UA did meet criteria for culture.? July 21 microbiology urine culture grew out E coli which is sensitive to ceftriaxone.? COVID-19 PCR is negative.? Another urine culture has been submitted for microbiology and is pending. Discharge Providers Provider Date of admission: 07/31/21 22:37 Discharge Date: 09/03/21 Consults: 07/31/21 17:39 Consult to [facility] [place] - Servicing Rep Stat Comment: 08/01/21 01:25 Consult to [facility] [place] - Servicing Rep Routine Comment: SNF/Rehab, hip repair [employer]PER Consult: [facility] Need Consult to Occupational Therapy Evaluate & Treat Comment: Physician Instructions: Evaluate and treat Consult to Physical Therapy Evaluate & Treat Comment: weakness, FTT Physician Instructions: Evaluate and Treat 08/02/21 18:14 Consult to Dietitian, Adult Routine Comment: Reason For Exam: homeless, ran out of food stamps, lives in car 08/08/21 11:31 Consult to Speech Therapy Evaluate & Treat Comment: Physician Instructions: Evaluate and treat Discharge provider: Cortes Rudolph MD Summary Hospital Course Discharge Diagnosis: 1. Left femoral neck fracture with a cemented unipolar left hip replacement on July 02, 2021 2. Failure to thrive 3. Hypertension 4. Urinary tract infection, resolved 5. Urinary retention, improved 6. Chronic atrial fibrillation 7. Constipation 8. Impaired cognitive function Hospital Course: 71yo male with a hx of homelessness with irregular healthcare follow-up that initially presented on 07/02/2021 for a left femoral neck fracture status post cemented unipolar left hip replacement on that day. After that surgery, plans were for the patient to go to a group home facility. However, the patient declined that option, preferring to go to an available hotel room. This did not hartley out well, as the patient was then unable to stay at the hotel. He then began living in his car, in a parking lot adjacent to the hospital, with frequent readmissions for left hip pain, UTI, acute urinary retention. Due to these frequent readmissions, patient agreed to group home facility, with difficulty in placement due to multiple factors. Amlodipine was started for hypertension, tamsulosin for likely BPH causing intermittent urinary retention. Patient was found to have a fib. Toprol was started for rate control with good effect. With his bleeding risk and low CHADSVASc 1 (age), patient was started on baby aspirin. Of note, conchita espinosa conducted an assessment of the patient's mental status. He was found to have impaired cognitive function. Exam Vital Signs (past 8 hours): - 09/03/21 08:26 09/03/21 08:58 Temperature 97.8 F Pulse Rate 88 79 Respiratory Rate 18 Blood Pressure 146/92 H 115/66 Pulse Oximetry 98 Oxygen Delivery Method Room Air Oxygen Flow Rate 0 Narrative Exam Narrative: Const Other: Patient sitting up in chair upon my entering the room, and in no apparent acute distress. Eyes Other: No scleral icterus appreciated. Neck Other: No carotid bruits noted. Resp Other: Clear to auscultation bilaterally, without adventitious breath sounds appreciated. Cardio Other: Regular rate and rhythm. S1 and S2 auscultated with no extra heart sounds or murmurs appreciated. GI Other: Soft, non-distended, non-tender, bowel sounds present. Extrem Other: Stasis dermatitis changes appreciated to bilateral lower extremities, with no edema appreciated. Palpable radial pulses bilaterally. Objective Labs Result Diagrams: 08/24/21 05:35 08/24/21 05:35 [facility] [place] Medical History Cellulitis of left leg Congestive heart failure Elevated troponin Essential hypertension Hypertension Surgical History No pertinent past surgical history Family History Mother Hypertension Sister Hypertension Social History household members: none housing: other occupational status: unemployed Smoking Status: Current every day smoker alcohol intake: current additional social history: Lives in a hotel Discharge Assessment & Plan Assessment and Plan Assessment: 1. Left femoral neck fracture status post cemented unipolar left hip replacement on 07/02/2021 2. Failure to thrive 3. Hypertension -continue amlodipine and metoprolol 4. Urinary tract infection, now resolved 5. Urinary retention, improved 6. Chronic atrial fibrillation -continue metoprolol succinate -CHADSVASc 1 (age), aspirin 81 mg daily on-board 7. Constipation -continue oral medication 8. Impaired cognitive function -during his admission, patient underwent speech evaluation, which this revealed a slums score of 6/30 -patient has significant difficulty with immediate recall, patient has severely impaired functional capacity, cognitive impairments include short-term memory attention executive function and following directions Discharge Plan Discharge Plan Patient Disposition: Home Discharge orders & Medications Prescriptions: New tamsulosin [Flomax] 0.4 mg Capsule 0.8 mg PO DAILY Qty: 30 0RF Continued sennosides [senna] 8.6 mg Tablet 17.2 mg PO BID 30 Days Qty: 60 11RF metoprolol succinate 100 mg tablet extended release 24 hr 100 mg PO DAILY 30 Days Qty: 30 11RF aspirin 81 mg Tablet,Delayed Release (Dr/Ec) 81 mg PO BID 42 Days Qty: 84 0RF Rx Instructions: take for 6 weeks to prevent blood clots after hip replacement amlodipine 10 mg tablet 10 mg PO DAILY 30 Days Qty: 30 11RF acetaminophen 325 mg capsule 650 mg PO Q6H PRN (Reason: pain) 30 Days Qty: 30 11RF melatonin 10 mg Tablet 10 mg PO BEDTIME PRN (Reason: Sleep) 30 Days Qty: 30 11RF Discontinued ibuprofen 400 mg tablet 400 mg PO Q6H PRN (Reason: postop pain) Qty: 30 0RF Discharge Data Attending Provider: Daniela Rajput VTE Deep Vein Thrombosis/Pulmonary Embolism Present on Admission: No
--- NOTE | 2021-09-03 11:54 | PC.NURSE ---
gave report to [facility] at [facility]
== END 2021-09-03 13:17 | disposition home or self-care (01) ==
LOC: ED 19:08 → AC 22:38
PROVIDERS: Hospitalist; Internal Medicine; Admitting Provider Nurse Practitioner Family; Emergency Provider Emergency Medicine; Referring Provider Emergency Medicine; Visit Provider Nurse Practitioner Family
DX: T83.511A Infection and inflammatory reaction due to indwelling urethral catheter, initial encounter (principal); N39.0 Urinary tract infection, site not specified; I48.20 Chronic atrial fibrillation, unspecified; I11.0 Hypertensive heart disease with heart failure; I50.32 Chronic diastolic (congestive) heart failure; R62.7 Adult failure to thrive; E43 Unspecified severe protein-calorie malnutrition; R33.9 Retention of urine, unspecified; Z68.30 Body mass index [BMI] 30.0-30.9, adult; K59.00 Constipation, unspecified; Z59.41 Food insecurity; Z59.01 Sheltered homelessness; F17.210 Nicotine dependence, cigarettes, uncomplicated; G31.84 Mild cognitive impairment of uncertain or unknown etiology; Z20.822 Contact with and (suspected) exposure to COVID-19
CPT/HCPCS: 36415; 70551; 71045; 73502; 80048; 80053; 80076; 80320; 81001; 83605; 83690; 83735; 83880; 84484; 85025; 87040; 87086; 87150; 87205; 87635; 96125; 96361; 96365; 96366; 96372; 97116; 97129; 97162; 97166; 97530; 97535; 99284; C9803; G0378; J0696; J1650